=== PATIENT | female | born 1935 | race Caucasian/White ===

== ENCOUNTER 2020-01-26 16:13 | Inpatient (IN) | payer MEDICARE, MEDICAID, SELFPAY ==
[2020-01-26 21:20] VITALS: BMI 11.4
[2020-01-27] VITALS (8 sets, daily range): BP systolic 99–136; BP diastolic 52–88; PULSE 60–110; RESP 18–20; TEMP 36.1–37; O2SAT 94–98
[2020-01-27] MEDS: Levothyroxine Sodium 50 MCG TABLET PO (06:27)
[2020-01-27] MEDS: Apixaban 2.5 MG TABLET PO ×2 (06:27→18:56)
[2020-01-27] MEDS: dilTIAZem HCL 125 MG in 0.9 % Sodium Chloride 100 ML IVCONT (06:36)
[2020-01-27 06:50] LABS: Hematocrit 32.1 % (37-47); Hemoglobin 10.1 g/dl (12.0-16.0); Mean Corpuscular HGB Conc 31.5 g/dl (31.0-35.0); Mean Corpuscular Volume 92.2 fL (80-98); Mean Platelet Volume 10.2 fL (9.4-12.3); Platelet Count 288 X10*3/uL (160-400); Red Blood Count 3.48 X10*6/uL (4.20-5.50)
[2020-01-27 06:53] LABS: Anion Gap 10 (12-20); Blood Urea Nitrogen 18 mg/dL (9-16); Calcium 7.9 mg/dL (8.4-10.2); Carbon Dioxide 26 mmol/L (22-29); Chloride 108 mmol/L (96-108); Creatinine Clr Calc Pharmacy 10.5; Estimated Glomerular Filt Rate 30; Glucose Fasting 80 mg/dL (60-99); Potassium 4.2 mmol/l (3.3-5.1); Sodium 140 mmol/L (135-145)
[2020-01-27] MEDS: cefTRIAXone sodium 1 GM in 0.9 % Sodium Chloride 50 ML IV (09:20)
[2020-01-27] MEDS: 0.9 % Sodium Chloride Flush 3 ML SYRINGE 2 ML IVFLUSH ×2 (09:21→15:34)
[2020-01-27] MEDS: Furosemide 40 MG TABLET PO (09:21)
--- NOTE | 2020-01-27 10:44 | HO.PM.IMPN ---
Subjective Subjective Date of Service: 01/27/20 Interval History: feeling better today, no palpitations, fatigue lessened Cardiovascular Cardiovascular: Reports no additional cardiovascular complaints Respiratory Respiratory: Reports no additional respiratory complaints Physical Exam Vital Signs and I&O and Narrative: Vital Signs and I&O: Vital Signs Temp 97.7 F 01/27/20 08:00 Pulse 99 01/27/20 08:00 Resp 20 01/27/20 08:00 BP 110/70 01/27/20 08:00 Pulse Ox 94 01/27/20 08:00 Intake & Output 01/26/20 01/27/20 01/27/20 18:59 06:59 18:59 Intake Total 50 / 50 Output Total 200 / 200 100 / 100 Balance -200 / -200 -50 / -50 Urine Output (Aver age ml/kg/hr) 0.65 0.32 Weight 25.7 kg Intake: Intake, IV Amoun t 50 / 50 cefTRIAXone so dium 1 gm In 0.9 50 / 50 % Sodium Chlor maricruz 50 ml @ 100 mls/hr IV Q24H [facility] Rx#: [id number] Output: Output, Urine Am ount 200 / 200 100 / 100 Other: Number of Incont inent Voids 1 Urine Bedside Commode Bedside Commode Urine Color Yesy Cloudy with Sedime nt Continuous Bladd er Irrigation Fluid - Amount I nstilled Female Externa l 300 Body Mass Index 11.4 Const: General: no acute distress and alert Orientation/consciousness: patient oriented x3 Resp: Auscultation: clear to auscultation bilaterally Cardio: Rhythm: abnormal rhythm Heart sounds: S1 normal heart sound present and S2 normal heart sound present GI: Palpation (GI): nontender Neuro: General: patient oriented x3 Psych: Affect: normal affect Objective Data Current Medications Generic Name Dose Route Start Last Admin Trade Name Freq PRN Reason Stop Dose Admin Alprazolam 0.5 mg 01/27/20 00:01 Alprazolam 0.5 Mg Tablet PO BID PRN anxiety/restlessness Apixaban 2.5 mg 01/27/20 04:45 01/27/20 06:27 Apixaban 2.5 Mg Tablet PO 2.5 mg Q12H [facility] Administration Furosemide 40 mg 01/27/20 09:00 01/27/20 09:21 Furosemide 40 Mg Tablet PO 40 mg DAILY [facility] Administration Protocol Ceftriaxone Sodium 1 gm/ 50 mls @ 100 mls/hr 01/27/20 08:00 01/27/20 10:08 Sodium Chloride IV Infused Q24H [facility] Infusion Diltiazem HCl 125 mg/ Sodium 125 mls @ 0 mls/hr 01/27/20 03:00 01/27/20 06:36 Chloride IVCONT 5 mg/hr .Q0M [facility] 5 mls/hr Administration Protocol Per Protocol Levothyroxine Sodium 50 mcg 01/27/20 06:00 01/27/20 06:27 Levothyroxine Sodium 50 Mcg Tablet PO 50 mcg DAILY@0600 [facility] Administration Sodium Chloride 2 ml 01/27/20 00:00 01/27/20 09:21 0.9 % Sodium Chloride Flush 3 Ml Syringe IVFLUSH 2 ml QSHIFT [facility] Administration Labs CBC & Chem 7: 01/27/20 05:20 01/27/20 05:20 Labs: Laboratory Results - last 24 hr 01/27/20 01/27/20 05:20 05:20 MCV 92.2 MCH 29.0 MCHC 31.5 RDW 18.0 H Plt Count 288 MPV 10.2 Absolute Nucleated RBC 0.000 Nucleated RBC % (auto) 0.0 Anion Gap 10 L Estim Creat Clear Calc 10.5 Estimated GFR 30 Fasting Glucose 80 Calcium 7.9 L
--- NOTE | 2020-01-27 11:27 | MHC.CM.PN ---
IMM 01/27/20 Female 84 dx afib rvr lives alone on 2nd floor of 2 family house. Her dtr lives on 1st floor. Dtr provides [employer] services thru [employer]. DP home resumption of [facility] and new referral to [facility]. Family will transport. Requested copy of HCP. CM will continue to follow.
--- NOTE | 2020-01-27 11:46 | P.CDIC_ITS ---
CDI Concurrent Query Service Date: 01/27/20 Documentation Clarification: Please clarify if you are treating a proba ble/suspected/likely or confirmed: Acute Systolic CHF Acute on Chronic Systolic CHF PLEASE DO NOT DELETE/MODIFY EXISTING CONTENT Additional information is needed in order to code to the highest accuracy and appropriate Severity of Illness (SOI). Please clarify the information noted below in your progress notes and discharge summary. Risk Factors/Clinical Indicators/Treatments 84 year old female admitted with Atrial Fibrillation, weakness, off Lasix for 2 weeks. Cardioversion on 12/31/19 PMH: Atrial Fibrillation, CKD4, HTN, CHF EF 30% Treated with IV Lasix and Cardizem drip Per H&P: CHF with reduced EF Cardiology consult pending CDS: Nidhi Tyler RN Contact Number: [phone] Please Review the information above and exercise your independent professional judgment in responding to the query. If you concur, pleas document in the PROGRESS NOTES and DISCHARGE SUMMARY. If you do not agree with the query, please document in the query above. THIS QUERY IS PART OF THE PERMANENT MEDICAL RECORD
[2020-01-27] MEDS: Metoprolol Tartrate 25 MG TABLET PO ×3 (15:31→21:41)
[2020-01-27] MEDS: ALPRAZolam 0.5 MG TABLET PO (15:31)
[2020-01-27] MEDS: Furosemide 20 MG/2 ML VIAL IVPUSH (15:32)
[2020-01-27] MEDS: Furosemide 40 MG/4 ML VIAL IVPUSH (18:56)
[2020-01-28] VITALS (16 sets, daily range): BP systolic 90–119; BP diastolic 45–84; PULSE 54–90; RESP 16–18; TEMP 36–36.9; O2SAT 94–99
--- NOTE | 2020-01-28 | ECG_ITS ---
Test Reason : S/P CARDIOVERSION Blood Pressure : / mmHG Vent. Rate : 055 BPM Atrial Rate : 055 BPM P-R Int : 238 ms QRS Dur : 086 ms QT Int : 520 ms P-R-T Axes : 066 -27 028 degrees QTc Int : 497 ms Sinus bradycardia with 1st degree A-V block Nonspecific T wave abnormality Prolonged QT Abnormal ECG When compared with ECG of 26-JAN-2020 15:10, Sinus rhythm has replaced Atrial fibrillation Vent. rate has decreased BY 81 BPM Nonspecific T wave abnormality now evident in Anterior leads T wave inversion no longer evident in Lateral leads Referred By: Korey Cao Electronically Signed By:ERYN PRINCE
[2020-01-28] MEDS: dilTIAZem HCL 125 MG in 0.9 % Sodium Chloride 100 ML IVCONT (04:55)
[2020-01-28] MEDS: Apixaban 2.5 MG TABLET PO ×3 (05:03→15:01)
[2020-01-28] MEDS: Levothyroxine Sodium 50 MCG TABLET PO (05:03)
[2020-01-28 06:32] LABS: MANUAL DIFF FLAG NO
[2020-01-28 07:00] LABS: Anion Gap 12 (12-20); Blood Urea Nitrogen 27 mg/dL (9-16); Calcium 7.8 mg/dL (8.4-10.2); Carbon Dioxide 24 mmol/L (22-29); Chloride 106 mmol/L (96-108); Creatinine Clr Calc Pharmacy 8.1; Estimated Glomerular Filt Rate 22; Glucose Fasting 90 mg/dL (60-99); Potassium 4.2 mmol/l (3.3-5.1); Sodium 138 mmol/L (135-145)
[2020-01-28 07:08] LABS: Basophils Percent Auto 0.2 % (0-2); Eosinophils Absolute Auto 0.2 X10*3/uL (0.0-0.4); Eosinophils Percent Auto 2.9 % (0-4); Hematocrit 32.7 % (37-47); Hemoglobin 10.6 g/dl (12.0-16.0); Imm Gran Abs Auto 0.02 X10*3/uL (0.00-0.03); Imm Gran Pct Auto 0.3 % (0.0-0.4); Lymphocytes Absolute Auto 1.5 X10*3/uL (1.2-4.9); Lymphocytes Percent Auto 24.7 % (20-40); Mean Corpuscular HGB Conc 32.4 g/dl (31.0-35.0); Mean Corpuscular Hemoglobin 29.9 pg (27.0-33.0); Mean Corpuscular Volume 92.4 fL (80-98); Mean Platelet Volume 10.3 fL (9.4-12.3); Monocytes Absolute Auto 0.5 X10*3/uL (0.1-1.2); Monocytes Percent Auto 7.9 % (2-11); Neutrophils Absolute Auto 3.8 X10*3/uL (2.0-8.3); Platelet Count 300 X10*3/uL (160-400); Red Blood Count 3.54 X10*6/uL (4.20-5.50)
[2020-01-28] MEDS: 0.9 % Sodium Chloride Flush 3 ML SYRINGE 2 ML IVFLUSH ×3 (08:48→21:25)
[2020-01-28] MEDS: Furosemide 40 MG/4 ML VIAL IVPUSH (08:48)
[2020-01-28] MEDS: Metoprolol Tartrate 25 MG TABLET PO ×4 (08:51→21:24)
[2020-01-28] MEDS: cefTRIAXone sodium 1 GM in 0.9 % Sodium Chloride 50 ML IV (09:01)
--- NOTE | 2020-01-28 10:00 | CA_ITS ---
TYPE OF PROCEDURE: Transesophageal echocardiogram. INDICATION: Pre-cardioversion to rule out intracardiac thrombi given recent interruption in Eliquis. TECHNIQUE: After obtaining full informed consent, the patient was brought to the OR suite in a fasting condition. The patient was then given GA/anesthesia by anesthesia team. A BRYCE probe was then introduced into the gastric and then into the esophageal cavity. Images were obtained in standard format. FINDINGS: Left ventricle appears to be of normal size with [id number] LVH. Left ventricular systolic function appears preserved on this study with LVEF of 55% to 60%. Diastolic function could not be ascertained on this study. Left atrium: This is at least moderately dilated in size. The left atrium shows dense smoke formation. The left atrial appendage was identified in multiple views. There are no filling defects suggestive of clot, however, there was dense smoke formation seen. The left atrial appendage ejection velocity is markedly diminished. Left upper, right upper, and right lower pulmonary veins drain normally into the left atrium. Interatrial septum shows a small aneurysmal outpouching with a small evidence of patent foramen ovale with [id number] shunting. Right atrium is at least moderately to severely dilated. There is smoke formation seen in the right atrium. There are no clots in the right atrium. The IVC and SVC are normally draining into the right atrium. Right ventricle is of normal size with low normal contractile function. Mitral valve, posterior leaflet is heavily thickened and restricted with heavy mitral annular calcification. There is moderate calcification at the base of the anterior mitral leaflet. There is no evidence of mitral stenosis. There is mild mitral regurgitation. The aortic valve is mildly thickened, mildly calcified with restricted opening suggesting mild aortic stenosis. There is no aortic regurgitation. There are no masses or vegetations noted attached to the left-sided leaflets. Tricuspid morphology, trace TR with calculated RV systolic pressure within normal limits. Pulmonic valve within normal limits. Pericardium is normal. Descending and transverse thoracic aorta show hnuujnof-ol-aseohv thickening and atherosclerotic changes. CONCLUSION: 1. Left atrial appendage shows no thrombus. 2. Left atrium and left atrial appendage show dense smoke formation. 3. Biatrial enlargement, right greater than left. 4. Preserved LV systolic function. 5. Mild mitral regurgitation with severe mitral annular calcification. 6. No pericardial effusion. 7. Severe atherosclerotic changes in the descending and transverse thoracic aorta. PLAN: Based upon the finding, the patient went on to have synchronized cardioversion, which is dictated separately. MD DOUG Villalpando/MODL / [id number]
--- NOTE | 2020-01-28 12:32 | P.PNAN_ITS ---
Physical Exam Vital Signs and I&O and Narrative: Vital Signs and I&O: Vital Signs Temp 98.1 F 01/28/20 11:50 Pulse 74 01/28/20 11:50 Resp 18 01/28/20 11:50 BP 117/84 01/28/20 11:50 Pulse Ox 96 01/28/20 11:50 Intake & Output 01/27/20 01/28/20 01/28/20 18:59 06:59 18:59 Intake Total 700 / 811.583 111.583 / 811.583 50 / 50 Output Total 1352 / 2152 800 / 2152 Balance -652 / -1340.417 -688.417 / -1340.4 17 50 / 50 Urine Output (Aver age ml/kg/hr) 4.38 2.59 2.59 Intake: Intake, Oral [place] unt 430 / 430 Intake, Intraper itoneal Amount 220 / 220 Intake, IV Amoun t 50 / 161.583 111.583 / 161.583 50 / 50 cefTRIAXone so dium 1 gm In 0.9 50 / 50 50 / 50 % Sodium Chlor maricruz 50 ml @ 100 mls/hr IV Q24H [facility] Rx#: [id number] dilTIAZem HCL 125 mg In 0.9 % 111.583 / 111.583 Sodium Chlorid e 100 ml @ Per Protocol IVCON T .Q0M [facility] Rx#: [id number] Output: Output, Urine Am ount 1352 / 2152 800 / 2152 Other: Meal Refused No NPO No Yes Lunch % Eaten 75% Dinner % Eaten 100% Number of Incont inent Voids 2 Number of Urine Diapers 1 Urine Bathroom Bedside Commode Urine Color Yellow Yellow Stool Bedside Commode Body Mass Index 11.4 Progress Note: A&P Fall Risk Details Current Medications: Current Medications Generic Name Dose Route Start Last Admin Trade Name Freq PRN Reason Stop Dose Admin Alprazolam 0.5 mg 01/27/20 00:01 01/27/20 15:31 Alprazolam 0.5 Mg Tablet PO 0.5 mg BID PRN Administration anxiety/restlessness Apixaban 2.5 mg 01/27/20 04:45 01/28/20 05:06 Apixaban 2.5 Mg Tablet PO 2.5 mg Q12H [facility] Administration Furosemide 20 mg 01/29/20 09:00 Furosemide 20 Mg Tablet PO DAILY [facility] Protocol Ceftriaxone Sodium 1 gm/ 50 mls @ 100 mls/hr 01/27/20 08:00 01/28/20 10:37 Sodium Chloride IV Infused Q24H [facility] Infusion Diltiazem HCl 125 mg/ Sodium 125 mls @ 0 mls/hr 01/27/20 03:00 01/28/20 04:55 Chloride IVCONT 5 mg/hr .Q0M [facility] 5 mls/hr Administration Protocol Per Protocol Levothyroxine Sodium 50 mcg 01/27/20 06:00 01/28/20 05:03 Levothyroxine Sodium 50 Mcg Tablet PO 50 mcg DAILY@0600 [facility] Administration Metoprolol Tartrate 25 mg 01/27/20 13:00 01/28/20 08:51 Metoprolol Tartrate 25 Mg Tablet PO 25 mg QID [facility] Administration Protocol Sodium Chloride 2 ml 01/27/20 00:00 01/28/20 08:48 0.9 % Sodium Chloride Flush 3 Ml Syringe IVFLUSH 2 ml QSHIFT [facility] Administration Time Spent With Patient Time: Total time spent is greater than 50% in coordination of care (as docum ented) at patient's floor/unit and/or counseling patient: Time with patient: Greater than 35 minutes
--- NOTE | 2020-01-28 12:32 | P.CONAN_ITS ---
[facility] Past Medical History Medical History Anxiety Ramos's palsy Cervical cancer DVT (deep venous thrombosis) Social History Social History Smoking Status: Never smoker Second Hand Smoke Exposure: No service: No Current occupational status: disabled Meds Allergies Allergy/AdvReac Type Severity Reaction Status Date / Time amlodipine [From NORVASC] Allergy Intermediate HIVES Unverified 01/13/20 17:03 aspirin [ASA] Allergy Intermediate HIVES Unverified 01/13/20 17:03 robert [ROBERT] Allergy Intermediate HIVES Unverified 01/13/20 17:03 gabapentin Allergy Unknown dizziness Verified 11/26/19 00:00 hydrochlorothiazide Allergy Unknown Hives Verified 01/28/20 12:00 lisinopril Allergy Unknown Cough Verified 01/28/20 12:00 ASA Allergy Unknown hives Uncoded 12/28/19 00:00 Home Medications Medication Instructions Recorded Confirmed Type alprazolam 0.5 mg PO BID PRN 01/26/20 01/26/20 History amiodarone 200 mg PO DAILY 01/26/20 01/26/20 History apixaban 2.5 mg PO BID 01/26/20 01/26/20 History furosemide 40 mg PO DAILY 01/26/20 01/26/20 History levothyroxine 50 mcg PO DAILY 01/26/20 01/26/20 History sulfamethoxazole-trimethoprim 1 tab PO BID 01/26/20 01/26/20 History [Bactrim] Exam Exam Date and Time: January 28, 2020 1232 Height,Weight and Vital Signs: Height 4 ft 11 in Weight 25.7 kg Last Vital Signs Temp 98.1 F 01/28/20 11:50 Pulse 74 01/28/20 11:50 Resp 18 01/28/20 11:50 BP 117/84 01/28/20 11:50 Pulse Ox 96 01/28/20 11:50 Pertinent Lab Results Pertinent Lab Results: Laboratory Tests 01/27/20 01/27/20 01/28/20 05:20 05:20 05:40 WBC 5.0 6.0 RBC 3.48 L 3.54 L Hgb 10.1 L 10.6 L Hct 32.1 L 32.7 L MCV 92.2 92.4 MCH 29.0 29.9 MCHC 31.5 32.4 RDW 18.0 H 18.0 H Plt Count 288 300 MPV 10.2 10.3 Immature Gran % (Auto) 0.3 Neut % (Auto) 64.0 Lymph % (Auto) 24.7 [place] % (Auto) 7.9 Eos % (Auto) 2.9 Baso % (Auto) 0.2 Neut # (Auto) 3.8 Lymph # (Auto) 1.5 [place] # (Auto) 0.5 Eos # (Auto) 0.2 Baso # (Auto) 0.0 Abs Immat Gran (auto) 0.02 Absolute Nucleated RBC 0.000 0.000 Nucleated RBC % (auto) 0.0 0.0 Sodium 140 Potassium 4.2 Chloride 108 Carbon Dioxide 26 Anion Gap 10 L BUN 18 H Creatinine 1.64 H Estim Creat Clear Calc 10.5 Estimated GFR 30 Fasting Glucose 80 Calcium 7.9 L 01/28/20 05:40 WBC RBC Hgb Hct MCV MCH MCHC RDW Plt Count MPV Immature Gran % (Auto) Neut % (Auto) Lymph % (Auto) [place] % (Auto) Eos % (Auto) Baso % (Auto) Neut # (Auto) Lymph # (Auto) [place] # (Auto) Eos # (Auto) Baso # (Auto) Abs Immat Gran (auto) Absolute Nucleated RBC Nucleated RBC % (auto) Sodium 138 Potassium 4.2 Chloride 106 Carbon Dioxide 24 Anion Gap 12 BUN 27 H Creatinine 2.13 H Estim Creat Clear Calc 8.1 Estimated GFR 22 Fasting Glucose 90 Calcium 7.8 [address] Airway Mallampati Class: II TM Dist: >3cm Neck ROM: Full Denture: Upper Loose/Missing/Broken Teeth: Yes (No lower teeth) Heart: irreg irreg Lungs: CTA Assessment and Plan Assessment Anesthesia Assessment: Anesthesia Plan Discussed, Consent Obtained and Chart Reviewed Final Anesthetic Review NPO: Yes ASA Class: III Final Preanesthetic Review: Meds & Allergies Reviewed, Consent Obtained/Reviewed, Med/Surg/Anes Hx Reviewed, Anes Risks/Benef Reviewed and DNR Form (If Appl.) Patient Risk: Intermediate Procedure Risk: Intermediate Anesthetic Plan Anesthetic Plan: GA Disposition: Standard PACU
--- NOTE | 2020-01-28 13:02 | HO.PM.IMPN ---
Subjective Subjective Date of Service: 01/28/20 Interval History: feeling much better Physical Exam Vital Signs and I&O and Narrative: Vital Signs and I&O: Vital Signs Temp 98.1 F 01/28/20 11:50 Pulse 74 01/28/20 11:50 Resp 18 01/28/20 11:50 BP 117/84 01/28/20 11:50 Pulse Ox 96 01/28/20 11:50 Intake & Output 01/27/20 01/28/20 01/28/20 18:59 06:59 18:59 Intake Total 700 / 811.583 111.583 / 811.583 50 / 50 Output Total 1352 / 2152 800 / 2152 Balance -652 / -1340.417 -688.417 / -1340.4 17 50 / 50 Urine Output (Aver age ml/kg/hr) 4.38 2.59 2.59 Intake: Intake, Oral [place] unt 430 / 430 Intake, Intraper itoneal Amount 220 / 220 Intake, IV Amoun t 50 / 161.583 111.583 / 161.583 50 / 50 cefTRIAXone so dium 1 gm In 0.9 50 / 50 50 / 50 % Sodium Chlor maricruz 50 ml @ 100 mls/hr IV Q24H [facility] Rx#: [id number] dilTIAZem HCL 125 mg In 0.9 % 111.583 / 111.583 Sodium Chlorid e 100 ml @ Per Protocol IVCON T .Q0M [facility] Rx#: [id number] Output: Output, Urine Am ount 1352 / 2152 800 / 2152 Other: Meal Refused No NPO No Yes Lunch % Eaten 75% Dinner % Eaten 100% Number of Incont inent Voids 2 Number of Urine Diapers 1 Urine Bathroom Bedside Commode Urine Color Yellow Yellow Stool Bedside Commode Body Mass Index 11.4 Const: General: no acute distress and alert Orientation/consciousness: patient oriented x3 Resp: Auscultation: clear to auscultation bilaterally Cardio: Rhythm: abnormal rhythm Heart sounds: S1 normal heart sound present and S2 normal heart sound present GI: Palpation (GI): nontender Neuro: General: patient oriented x3 Psych: Affect: normal affect Objective Data Current Medications Generic Name Dose Route Start Last Admin Trade Name Freq PRN Reason Stop Dose Admin Alprazolam 0.5 mg 01/27/20 00:01 01/27/20 15:31 Alprazolam 0.5 Mg Tablet PO 0.5 mg BID PRN Administration anxiety/restlessness Apixaban 2.5 mg 01/27/20 04:45 01/28/20 05:06 Apixaban 2.5 Mg Tablet PO 2.5 mg Q12H [facility] Administration Furosemide 20 mg 01/29/20 09:00 Furosemide 20 Mg Tablet PO DAILY [facility] Protocol Ceftriaxone Sodium 1 gm/ 50 mls @ 100 mls/hr 01/27/20 08:00 01/28/20 10:37 Sodium Chloride IV Infused Q24H [facility] Infusion Diltiazem HCl 125 mg/ Sodium 125 mls @ 0 mls/hr 01/27/20 03:00 01/28/20 04:55 Chloride IVCONT 5 mg/hr .Q0M [facility] 5 mls/hr Administration Protocol Per Protocol Lactated Ringer's 1,000 ml in 1,000 mls @ 20 mls/hr 01/28/20 12:40 01/28/20 12:39 Lr IVCONT 20 mls/hr .Q24H [facility] Administration Levothyroxine Sodium 50 mcg 01/27/20 06:00 01/28/20 05:03 Levothyroxine Sodium 50 Mcg Tablet PO 50 mcg DAILY@0600 [facility] Administration Metoprolol Tartrate 25 mg 01/27/20 13:00 01/28/20 08:51 Metoprolol Tartrate 25 Mg Tablet PO 25 mg QID [facility] Administration Protocol Ondansetron HCl 4 mg 01/28/20 12:41 Ondansetron Hcl 4 Mg/2 Ml Vial IVPUSH ONCE PRN Nausea and Vomiting Sodium Chloride 2 ml 01/27/20 00:00 01/28/20 08:48 0.9 % Sodium Chloride Flush 3 Ml Syringe IVFLUSH 2 ml QSHIFT [facility] Administration Labs CBC & Chem 7: 01/28/20 05:40 01/28/20 05:40 Labs: Laboratory Results - last 24 hr 01/28/20 01/28/20 05:40 05:40 MCV 92.4 MCH 29.9 MCHC 32.4 RDW 18.0 H Plt Count 300 MPV 10.3 Immature Gran % (Auto) 0.3 Neut % (Auto) 64.0 Lymph % (Auto) 24.7 [place] % (Auto) 7.9 Eos % (Auto) 2.9 Baso % (Auto) 0.2 Neut # (Auto) 3.8 Lymph # (Auto) 1.5 [place] # (Auto) 0.5 Eos # (Auto) 0.2 Baso # (Auto) 0.0 Abs Immat Gran (auto) 0.02 Absolute Nucleated RBC 0.000 Nucleated RBC % (auto) 0.0 Anion Gap 12 Estim Creat Clear Calc 8.1 Estimated GFR 22 Fasting Glucose 90 Calcium 7.8 L Assessment and Plan (1) Chronic systolic CHF (congestive heart failure): Status: Acute (2) Atrial fibrillation with rapid ventricular response: Status: Acute (3) Urinary tract infection: Status: Acute (4) Hematuria: Status: Acute (5) Chronic kidney disease, stage 4 (severe): Status: Acute (6) Hypothyroid: Status: Acute Assessment and Plan: 84-year-old female presented with AFib with RVR AFib with RVR Holding amiodarone, rate controlled on diltiazem drip and Lopressor, restarted Eliquis plan for abel cardioversion today Urinary tract infection Hematuria resolved was Klebsiella and strep viridans Stopped Bactrim continue ceftriaxone acute on chronic CHF with reduced ejection fraction improved, change to po lasix 20 CKD 4 creatinine at baseline Hypothyroid Synthroid
--- NOTE | 2020-01-28 13:58 | P.PNCA_ITS ---
Subjective Subjective Principal diagnosis: CHF, persistent atrial fibrillation Interval history: feeling much better. her shortness of breath is back to baseline. Remains in atrial fibrillation with borderline controlled ventricular response. Patient denies any palpitations and does not feel at heart is in atrial fibrillation. Underwent BRYCE guided cardioversion. Converted successfully to sinus rhythm. No obvious abnormalities after cardioversion Physical Exam Vital Signs and I&O: Vital Signs Temp 96.9 F 01/28/20 12:28 Pulse 55 01/28/20 13:44 Resp 16 01/28/20 13:44 BP 91/47 L 01/28/20 13:44 Pulse Ox 96 01/28/20 13:44 Intake & Output 01/27/20 01/28/20 01/28/20 18:59 06:59 18:59 Intake Total 700 / 811.583 111.583 / 811.583 50 / 50 Output Total 1352 / 2152 800 / 2152 Balance -652 / -1340.417 -688.417 / -1340.417 50 / 50 Urine Output (Average ml/kg/hr) 4.38 2.59 2.59 Intake: Intake, Oral Amount 430 / 430 Intake, Intraperitoneal Amount 220 / 220 Intake, IV Amount 50 / 161.583 111.583 / 161.583 50 / 50 cefTRIAXone sodium 1 gm In 0.9 50 / 50 50 / 50 % Sodium Chloride 50 ml @ 100 mls/hr IV Q24H [facility] Rx#: [id number] dilTIAZem HCL 125 mg In 0.9 % 111.583 / 111.583 Sodium Chloride 100 ml @ Per Protocol IVCONT .Q0M [facility] Rx#: [id number] Output: Output, Urine Amount 1352 / 2152 800 / 2152 Other: Meal Refused No NPO No Yes Lunch % Eaten 75% Dinner % Eaten 100% Number of Incontinent Voids 2 Number of Urine Diapers 1 Urine Bathroom Bedside Commode Urine Color Yellow Yellow Stool Bedside Commode Body Mass Index 11.4 Const General: cooperative, comfortable and no acute distress Nutritional Appearance: other ( frail) Orientation/consciousness: patient oriented x3 Limitations: language barrier HENMT Head: Yes normocephalic and Yes atraumatic Eyes General: appearance normal, both eyes and all related structures Neck Neck: Yes full ROM, Yes trachea midline and Yes no JVD Chest Chest palpation & inspection: normal inspection of the chest Resp Effort & Inspection: normal respiratory effort Auscultation: clear to auscultation bilaterally Cardio Jugular venous distension: no JVD Rhythm: regular rhythm Heart sounds: S1 normal heart sound present and S2 normal heart sound present GI Auscultation: normal bowel sounds Skin General skin exam: elasticity normal and turgor normal Neuro General: patient oriented x3 and no focal motor deficits Extrem General: Yes no clubbing, cyanosis or edema Psych Mental Status: mental status grossly normal Affect: normal affect Progress Note: A&P Assessment and plan (1) Atrial fibrillation with rapid ventricular response: Problem details: atrial fibrillation, persistent. May be noncompliant with her medications at home. Converted successfully to sinus rhythm after BRYCE. Will load with amiodarone 400 mg daily for 10 days followed by 200 mg daily for life. Importance of compliance with medication was discussed with both patient patient's daughter. She has dense smoke formation in her left atrial appendage. Importance of uninterrupted anticoagulant therapy to reduce stroke risk was also discussed. Continue metoprolol 25 mg q.i.d.. EKG today and tomorrow. Continue full disclosure telemetry. Continue full oral anticoagulation with El iquis. If remains stable by tomorrow will probably discharge home. Status: Acute (2) Heart failure: Problem details: Heart failure which this morning prior to cardioversion appears much better control. Importance of diuretic therapy was discussed. Switch to p.o. Lasix 20 mg daily. Strict I&Os Q shift and avoidance of salt loading was discussed with the patient. Rhythm control approach as above. Her LV ejection fraction on today's BRYCE appear to be preserved. Continue to monitor clinically. Status: Acute Fall Risk Details Current Medications: Current Medications Generic Name Dose Route Start Last Admin Trade Name Freq PRN Reason Stop Dose Admin Alprazolam 0.5 mg 01/27/20 00:01 01/27/20 15:31 Alprazolam 0.5 Mg Tablet PO 0.5 mg BID PRN Administration anxiety/restlessness Amiodarone HCl 400 mg 01/28/20 13:35 Amiodarone Hcl 200 Mg Tablet PO 02/07/20 08:00 DAILY [facility] Apixaban 2.5 mg 01/27/20 04:45 01/28/20 05:06 Apixaban 2.5 Mg Tablet PO 2.5 mg Q12H [facility] Administration Furosemide 20 mg 01/29/20 09:00 Furosemide 20 Mg Tablet PO DAILY [facility] Protocol Ceftriaxone Sodium 1 gm/ 50 mls @ 100 mls/hr 01/27/20 08:00 01/28/20 10:37 Sodium Chloride IV Infused Q24H [facility] Infusion Lactated Ringer's 1,000 ml in 1,000 mls @ 20 mls/hr 01/28/20 12:40 01/28/20 12:39 Lr IVCONT 20 mls/hr .Q24H [facility] Administration Levothyroxine Sodium 50 mcg 01/27/20 06:00 01/28/20 05:03 Levothyroxine Sodium 50 Mcg Tablet PO 50 mcg DAILY@0600 [facility] Administration Metoprolol Tartrate 25 mg 01/27/20 13:00 01/28/20 08:51 Metoprolol Tartrate 25 Mg Tablet PO 25 mg QID [facility] Administration Protocol Sodium Chloride 2 ml 01/27/20 00:00 01/28/20 08:48 0.9 % Sodium Chloride Flush 3 Ml Syringe IVFLUSH 2 ml QSHIFT [facility] Administration Time Spent With Patient Time: Total time spent is greater than 50% in coordination of care (as documented) at patient's floor/unit and/or counseling patient: Time with patient: 15 - 24 minutes Review of Systems Const All systems reviewed & are unremarkable except as noted in HPI and below Eyes Reports no additional eye complaints Card Reports no additional cardiovascular complaints Resp Reports no additional respiratory complaints GI Reports no additional gastrointestinal complaints Neuro Reports no additional neurologic complaints
[2020-01-28] MEDS: Amiodarone HCL 200 MG TABLET 400 MG PO (15:00)
[2020-01-28] MEDS: ALPRAZolam 0.5 MG TABLET PO (18:10)
[2020-01-29] VITALS (14 sets, daily range): BP systolic 98–128; BP diastolic 51–72; PULSE 57–97; RESP 16–18; TEMP 36–36.4; O2SAT 95–100
[2020-01-29] MEDS: Levothyroxine Sodium 50 MCG TABLET PO (05:34)
[2020-01-29] MEDS: Apixaban 2.5 MG TABLET PO ×2 (05:34→20:41)
[2020-01-29 06:32] LABS: MANUAL DIFF FLAG NO
[2020-01-29 06:43] LABS: Basophils Percent Auto 0.2 % (0-2); Eosinophils Absolute Auto 0.2 X10*3/uL (0.0-0.4); Eosinophils Percent Auto 3.5 % (0-4); Hematocrit 34.2 % (37-47); Hemoglobin 10.6 g/dl (12.0-16.0); Imm Gran Abs Auto 0.01 X10*3/uL (0.00-0.03); Imm Gran Pct Auto 0.2 % (0.0-0.4); Lymphocytes Absolute Auto 1.6 X10*3/uL (1.2-4.9); Lymphocytes Percent Auto 27.8 % (20-40); Mean Corpuscular Hemoglobin 28.9 pg (27.0-33.0); Mean Corpuscular Volume 93.2 fL (80-98); Mean Platelet Volume 9.7 fL (9.4-12.3); Monocytes Absolute Auto 0.4 X10*3/uL (0.1-1.2); Monocytes Percent Auto 7.2 % (2-11); Neutrophils Absolute Auto 3.5 X10*3/uL (2.0-8.3); Neutrophils Percent Auto 61.1 % (45-73); Platelet Count 299 X10*3/uL (160-400); Red Blood Count 3.67 X10*6/uL (4.20-5.50); Red Cell Distribution Width 17.7 % (11.0-16.0); White Blood Count 5.7 X10*3/uL (4.8-10.8)
[2020-01-29 07:02] LABS: Anion Gap 12 (12-20); Blood Urea Nitrogen 35 mg/dL (9-16); Calcium 7.9 mg/dL (8.4-10.2); Carbon Dioxide 27 mmol/L (22-29); Chloride 103 mmol/L (96-108); Creatinine Clr Calc Pharmacy 7.3; Estimated Glomerular Filt Rate 20; Glucose Fasting 96 mg/dL (60-99); Potassium 4.1 mmol/l (3.3-5.1); Sodium 138 mmol/L (135-145)
[2020-01-29] MEDS: cefTRIAXone sodium 1 GM in 0.9 % Sodium Chloride 50 ML IV (09:49)
[2020-01-29] MEDS: 0.9 % Sodium Chloride Flush 3 ML SYRINGE 2 ML IVFLUSH ×3 (09:49→20:41)
[2020-01-29] MEDS: Furosemide 20 MG TABLET PO (09:54)
[2020-01-29] MEDS: Amiodarone HCL 200 MG TABLET 400 MG PO (09:54)
--- NOTE | 2020-01-29 11:13 | P.PNCA_ITS ---
Subjective Subjective Principal diagnosis: CHF, persistent atrial fibrillation Interval history: Patient status post cardioversion. Maintaining sinus rhythm. Heart rate in the upper 50s low 60s. She feels extremely well. She ambulated the entire Jesus and had no symptoms of shortness of breath or fatigue. No leg edema, orthopnea. Blood pressure is on the lower side. Creatinine today is higher Physical Exam Vital Signs and I&O: Vital Signs Temp 97.2 F 01/29/20 07:46 Pulse 57 01/29/20 09:55 Resp 18 01/29/20 07:46 BP 99/57 L 01/29/20 09:55 Pulse Ox 96 01/29/20 07:46 Intake & Output 01/28/20 01/29/20 01/29/20 18:59 06:59 18:59 Intake Total 85 / 325 240 / 325 240 / 240 Output Total 800 / 1000 200 / 1000 200 / 200 Balance -715 / -675 40 / -675 40 / 40 Urine Output (Average ml/kg/hr) 2.59 0.65 0.65 Intake: Intake, Oral Amount 240 / 240 240 / 240 Intake, IV Amount 85 / 85 cefTRIAXone sodium 1 gm In 0.9 50 / 50 % Sodium Chloride 50 ml @ 100 mls/hr IV Q24H [facility] Rx#: [id number] dilTIAZem HCL 125 mg In 0.9 % 35 / 35 Sodium Chloride 100 ml @ Per Protocol IVCONT .Q0M [facility] Rx#: [id number] Output: Output, Urine Amount 800 / 1000 200 / 1000 200 / 200 Other: NPO Yes Breakfast % Eaten 75% Number of Unmeasured Voids 6 Urine Bathroom Urine Color Cloudy with Sediment Body Mass Index 11.4 Const General: cooperative, comfortable, no acute distress, alert and awake Orientation/consciousness: patient oriented x3 [facility] Head: Yes normocephalic and Yes atraumatic Eyes General: appearance normal, both eyes and all related structures Neck Neck: Yes no JVD Chest Chest palpation & inspection: normal inspection of the chest Resp Effort & Inspection: normal respiratory effort Auscultation: clear to auscultation bilaterally Cardio Heart sounds: S1 normal heart sound present, S2 normal heart sound present and Gallop heart sound present S4 gallop GI Auscultation: normal bowel sounds Skin General skin exam: elasticity normal and turgor normal Neuro General: patient oriented x3 and no focal motor deficits Extrem General: Yes no clubbing, cyanosis or edema Psych Appearance: grossly normal Progress Note: A&P Fall Risk Details Current Medications: Current Medications Generic Name Dose Route Start Last Admin Trade Name Rufinoq PRN Reason Stop Dose Admin Alprazolam 0.5 mg 01/27/20 00:01 01/28/20 18:10 Alprazolam 0.5 Mg Tablet PO 0.5 mg BID PRN Administration anxiety/restlessness Amiodarone HCl 400 mg 01/28/20 13:35 01/29/20 09:54 Amiodarone Hcl 200 Mg Tablet PO 02/07/20 08:00 400 mg DAILY ROBBIE Administration Apixaban 2.5 mg 01/27/20 04:45 01/29/20 05:34 Apixaban 2.5 Mg Tablet PO 2.5 mg Q12H ROBBIE Administration Furosemide 20 mg 01/29/20 09:00 01/29/20 09:54 Furosemide 20 Mg Tablet PO 20 mg DAILY ROBBIE Administration Protocol Ceftriaxone Sodium 1 gm/ 50 mls @ 100 mls/hr 01/27/20 08:00 01/29/20 09:49 Sodium Chloride IV 100 mls/hr Q24H ROBBIE Administration Lactated Ringer's 1,000 ml in 1,000 mls @ 20 mls/hr 01/28/20 12:40 01/28/20 12:39 Lr IVCONT 20 mls/hr .Q24H ROBBIE Administration Levothyroxine Sodium 50 mcg 01/27/20 06:00 01/29/20 05:34 Levothyroxine Sodium 50 Mcg Tablet PO 50 mcg DAILY@0600 ROBBIE Administration Metoprolol Tartrate 25 mg 01/27/20 13:00 01/29/20 09:55 Metoprolol Tartrate 25 Mg Tablet PO Not Given QID ROBBIE Protocol Sodium Chloride 2 ml 01/27/20 00:00 01/29/20 09:49 0.9 % Sodium Chloride Flush 3 Ml Syringe IVFLUSH 2 ml QSHIFT ROBBIE Administration Time Spent With Patient Time: Total time spent is greater than 50% in coordination of care (as documented) at patient's floor/unit and/or counseling patient: Time with patient: 15 - 24 minutes Review of Systems Const Reports no additional constitutional complaints Eyes Reports no additional eye complaints Card Reports no additional cardiovascular complaints Resp Reports no additional respiratory complaints GI Reports no additional gastrointestinal complaints Skin Reports no additional skin complaints Neuro Reports no additional neurologic complaints
--- NOTE | 2020-01-29 11:30 | P.PNIM_ITS ---
Subjective Subjective Date of Service: 01/29/20 Interval History: feeling much better today able to ambulate without symptoms Physical Exam Vital Signs and I&O and Narrative: Vital Signs and I&O: Vital Signs Temp 97.2 F 01/29/20 07:46 Pulse 57 01/29/20 09:55 Resp 18 01/29/20 07:46 BP 99/57 L 01/29/20 09:55 Pulse Ox 96 01/29/20 07:46 Intake & Output 01/28/20 01/29/20 01/29/20 18:59 06:59 18:59 Intake Total 85 / 325 240 / 325 290 / 290 Output Total 800 / 1000 200 / 1000 200 / 200 Balance -715 / -675 40 / -675 90 / 90 Urine Output (Aver age ml/kg/hr) 2.59 0.65 0.65 Intake: Intake, Oral Jazz unt 240 / 240 240 / 240 Intake, IV Amoun t 85 / 85 50 / 50 cefTRIAXone so dium 1 gm In 0.9 50 / 50 50 / 50 % Sodium Chlor maricruz 50 ml @ 100 mls/hr IV Q24H [facility] Rx#: [id number] dilTIAZem HCL 125 mg In 0.9 % 35 / 35 Sodium Chlorid e 100 ml @ Per Protocol IVCON T .Q0M [facility] Rx#: [id number] Output: Output, Urine Am ount 800 / 1000 200 / 1000 200 / 200 Other: NPO Yes Breakfast % Eate n 75% Number of Unmeas ured Voids 6 Urine Bathroom Urine Color Cloudy with Sedime nt Body Mass Index 11.4 Const: General: cooperative, comfortable, no acute distress, alert and awake Nutritional Appearance: other ( frail) Orientation/consciousness: patient oriented x3 Limitations: language barrier HENMT: Head: Yes normocephalic and Yes atraumatic Eyes: General: appearance normal, both eyes and all related structures Neck: Neck: Yes full ROM, Yes trachea midline and Yes no JVD Chest: Chest palpation & inspection: normal inspection of the chest Resp: Effort & Inspection: normal respiratory effort Auscultation: clear to auscultation bilaterally Cardio: Jugular venous distension: no JVD Rhythm: regular rhythm Heart sounds: S1 normal heart sound present, S2 normal heart sound present and Gallop heart sound present S4 gallop GI: Palpation (GI): nontender Auscultation: normal bowel sounds Skin: General skin exam: elasticity normal and turgor normal Neuro: General: patient oriented x3 and no focal motor deficits Extrem: General: Yes no clubbing, cyanosis or edema Psych: Appearance: grossly normal Mental Status: mental status grossly normal Affect: normal affect Objective Data Current Medications Generic Name Dose Route Start Last Admin Trade Name Freq PRN Reason Stop Dose Admin Alprazolam 0.5 mg 01/27/20 00:01 01/28/20 18:10 Alprazolam 0.5 Mg Tablet PO 0.5 mg BID PRN Administration anxiety/restlessness Amiodarone HCl 400 mg 01/28/20 13:35 01/29/20 09:54 Amiodarone Hcl 200 Mg Tablet PO 02/07/20 08:00 400 mg DAILY ROBBIE Administration Apixaban 2.5 mg 01/27/20 04:45 01/29/20 05:34 Apixaban 2.5 Mg Tablet PO 2.5 mg Q12H ROBBIE Administration Ceftriaxone Sodium 1 gm/ 50 mls @ 100 mls/hr 01/27/20 08:00 01/29/20 11:14 Sodium Chloride IV Infused Q24H ROBBIE Infusion Lactated Ringer's 1,000 ml in 1,000 mls @ 20 mls/hr 01/28/20 12:40 01/28/20 12:39 Lr IVCONT 20 mls/hr .Q24H ROBBIE Administration Levothyroxine Sodium 50 mcg 01/27/20 06:00 01/29/20 05:34 Levothyroxine Sodium 50 Mcg Tablet PO 50 mcg DAILY@0600 ROBBIE Administration Metoprolol Tartrate 25 mg 01/27/20 13:00 01/29/20 09:55 Metoprolol Tartrate 25 Mg Tablet PO Not Given QID ROBBIE Protocol Sodium Chloride 2 ml 01/27/20 00:00 01/29/20 09:49 0.9 % Sodium Chloride Flush 3 Ml Syringe IVFLUSH 2 ml QSHIFT ROBBIE Administration Labs CBC & Chem 7: 01/29/20 06:18 01/29/20 06:18 Labs: Laboratory Results - last 24 hr 01/29/20 01/29/20 06:18 06:18 MCV 93.2 MCH 28.9 MCHC 31.0 RDW 17.7 H Plt Count 299 MPV 9.7 Immature Gran % (Auto) 0.2 Neut % (Auto) 61.1 Lymph % (Auto) 27.8 [place] % (Auto) 7.2 Eos % (Auto) 3.5 Baso % (Auto) 0.2 Neut # (Auto) 3.5 Lymph # (Auto) 1.6 [place] # (Auto) 0.4 Eos # (Auto) 0.2 Baso # (Auto) 0.0 Abs Immat Gran (auto) 0.01 Absolute Nucleated RBC 0.000 Nucleated RBC % (auto) 0.0 Anion Gap 12 Estim Creat Clear Calc 7.3 Estimated GFR 20 Fasting Glucose 96 Calcium 7.9 L Assessment and Plan (1) Chronic systolic CHF (congestive heart failure): Status: Acute (2) Atrial fibrillation with rapid ventricular response: Status: Acute (3) Urinary tract infection: Status: Acute (4) Hematuria: Status: Acute (5) Chronic kidney disease, stage 4 (severe): Status: Acute (6) Hypothyroid: Status: Acute Assessment and Plan: 84-year-old female presented with AFib with RVR AFib with RVR successfully converted to sinus rhythm with cardioversion yesterday continue amiodarone load of 400 mg daily followed by 200 mg daily continue Lopressor Eliquis 4 acute on chronic kidney injury hold Lasix monitor Urinary tract infection Hematuria resolved was Klebsiella and strep viridans Stopped Bactrim continue ceftriaxone acute on chronic CHF with reduced ejection fraction improved Hypothyroid Synthroid
--- NOTE | 2020-01-29 12:36 | OP_ITS ---
SURGEON: Korey Cao MD PREOPERATIVE DIAGNOSIS: POSTOPERATIVE DIAGNOSIS: PROCEDURE PERFORMED: Synchronized cardioversion. ESTIMATED BLOOD LOSS: COMPLICATIONS: ANESTHESIA: ASSISTANTS: SPECIMENS: INDICATION: Persistent atrial fibrillation with heart failure. TECHNIQUE: After obtaining full informed consent, the patient was brought to the OR suite in a fasting condition. The patient underwent a BRYCE to rule out any intracardiac thrombi prior to cardioversion dictated separately. Cardioversion pads were then placed in anteroposterior configuration. The patient was then delivered 200 joules of biphasic synchronized energy in anteroposterior configuration. OUTCOME: The patient converted successfully to sinus rhythm. PLAN: We will load with amiodarone 400 mg daily for 10 days followed by 200 mg daily. Continue metoprolol 25 mg q.6 hours. 12-lead EKG post procedure as well as tomorrow morning. Continue Eliquis uninterrupted, discussed with daughter. This is extremely important to prevent stroke. We will follow with the patient. Korey Cao MD NRS/MODL / [id number]
--- NOTE | 2020-01-29 12:36 | CONS_ITS ---
DATE OF SERVICE: 01/27/2020 REQUESTING PROVIDERS: Dr. Murillo. REASON FOR CONSULTATION: Atrial fibrillation with rapid ventricular response and congestive heart failure. HISTORY OF PRESENT ILLNESS: This is an 84-year-old female, history obtained with help of daughter who was present at the patient's bedside and very closely involved in her mother's care, brought to the hospital after being referred from [facility] by Lesvia Wooten NP, for atrial fibrillation with rapid ventricular response. The patient came to the hospital because over the last week the daughter has noticed that her pulse has been elevated, and occasionally with monitoring in the [employer], she has noticed that her heart rate was elevated; however, she did not pay much attention, not sure what was going on. She subsequently, tried to take her mom outpatient for some shopping and she got severely short of breath, and when she came and noticed the heart rate, day before yesterday, to be 169. She came to see ALLAN Lakhani, yesterday in the office. She was noticed to be in atrial fibrillation with rapid ventricular response, and referred to the emergency room. The patient supposedly is still taking amiodarone at home but is currently has not been taking Lasix because of excessive diuresis, as per the daughter, she also is not taking Eliquis because over a week ago she noticed some hematuria, which has now resolved, but she has not restarted taking Eliquis, this was started again in the hospital. She was suspecting hematuria due to UTI and currently is getting IV antibiotics and noted to have urinary tract infection while she is in the hospital. CURRENT MEDICATIONS: Include, at home, levothyroxine 50 mcg daily, amiodarone 200 mg daily, and Bactrim which she was getting at home. Medicines currently in the hospital; she is getting apixaban 2.5 mg p.o. q.12 hours; levothyroxine 50 mcg daily; Lasix 40 mg IV b.i.d., which was started only this morning after my suggestion; and she is getting metoprolol 25 mg p.o. q.i.d. She is also getting ceftriaxone 1 g q.24 hours as well as Cardizem drip which is getting at 5 mg an hour. PAST MEDICAL HISTORY: She has history of hypertension, chronic kidney disease. In October, she presented to the hospital with increased shortness of breath, was treated for acute diastolic heart failure, new onset atrial fibrillation. She subsequently presented to the hospital again, and then, as an outpatient, she was noted to have reduction in LVEF to 35% and she then underwent admission and underwent cardioversion on 12/31/2019, and she was then discharged on amiodarone after the cardioversion. This was in early December, and about a week to 2 weeks ago, she had recurrent atrial fibrillation. At this time, she has been taking amiodarone after loading appropriately. Past medical history as above. FAMILY HISTORY: Noncontributory. PERSONAL HISTORY: The patient is a nonsmoker. No drug abuse or alcohol abuse. Lives independently at home. Closely followed by her daughter. ALLERGIES: LISTED IN THE CHART. SHE HAS ALLERGIES TO ASPIRIN, WHICH CAUSES HIVES. SHE IS ALLERGIC TO LISINOPRIL HYDROCHLOROTHIAZIDE, GABAPENTIN, AMLODIPINE, AND ALSO SEFERINO. REVIEW OF SYSTEMS: No fever or chills. Not clearly noticed any weight gain or weight loss. No focal neurologic deficits. No visual changes. No hearing loss. No upper respiratory symptoms. She get significantly exertionally short of breath and fatigue recently, noted elevated heart rate, but no palpitations. No GI issues. She has some issues with hematuria and suspected to have UTI. No other major bleeding. Rest of 12-system review is negative. PHYSICAL EXAMINATION: GENERAL: The patient is alert and oriented x3, frail appearing elderly woman, in no acute respiratory distress. No pallor, no icterus, no cyanosis. VITAL SIGNS: Blood pressure 110/70; pulse is 99, irregularly irregular; respirations 18-20 per minute; temperature 97.7; pulse ox 94% on room air. HEENT: Normocephalic and atraumatic. NECK: Supple with no clear jugular venous distention. LUNGS: Bibasilar rales with dorsal kyphoscoliosis. CARDIAC: Regular S1, S2. ABDOMEN: Benign. DIRECTOR OF QUANTITATIVE RESEARCH: Nonfocal. EXTREMITIES: Shows mild pedal edema. LABORATORY DATA: Hemoglobin 11.3, hematocrit 36, white count 6.7, platelet count of 306. Sodium 138, potassium 4.7, BUN 21, creatinine 1.74. BNP yesterday was 425. Protime 13, INR 1.1. Chest x-ray consistent with unremarkable cardiovascular exam. EKG shows atrial fibrillation with rapid ventricular response with poor R-wave progression with lateral ST-T wave changes suggestive of repolarization abnormalities. High sensitive troponin was 11.7. 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 PLAN: At this time, we will switch to IV Lasix 40 mg b.i.d., appears to be in heart failure still. We discussed further management of atrial fibrillation, which is causing obviously significant symptoms. The patient has been taking amiodarone regularly, may be resistant to maintaining sinus rhythm due to underlying cardiac pathology; however, this needs to be re-attempted as she has been off Eliquis for the last week or more, we will perform a BRYCE-guided cardioversion tomorrow. This was discussed with the patient and patient's family, daughter, who are both agreeable. We will schedule for tomorrow. Keep her n.p.o. past midnight. Switch her to p.o. Lopressor 25 mg q.6 hours. Hold off on amiodarone but we will restart tomorrow with maybe a week of loading dose. Continue Eliquis. Importance of compliance with medication on regular basis was discussed, understands and agrees. Thank you for allowing me to partake in her care. Korey Cao MD NRS/MODL / [id number]
[2020-01-29] MEDS: Metoprolol Tartrate 25 MG TABLET PO (20:41)
--- NOTE | 2020-01-30 | US_ITS ---
EXAMINATION: US PELVIS LIMITED (BLADDER) CLINICAL INFORMATION: Hematuria. COMPARISON: None TECHNIQUE: Real-time imaging of the bladder. FINDINGS: BLADDER: Bladder is empty and difficult to evaluate. There are the distal ends of bilateral ureteral stents seen in the bladder. Prevoid bladder volume is 37 mL. Postvoid bladder volume was not obtained. Ureteral jets are not identified. IMPRESSION: Limited exam due to underdistention. Distal end of bilateral ureteral stents seen in the bladder. EXAMINATION: Renal ultrasound CLINICAL INFORMATION: Hematuria COMPARISON: None. TECHNIQUE: Grayscale and color imaging of the kidneys FINDINGS: The right kidney measures 8.1 x 5.3 x 4.6 cm and the left kidney measures 9.2 x 6.1 x 4.8 cm. There is bilateral hydronephrosis, left greater than right. There are stents seen in the renal pelvises bilaterally. No renal stone or mass is seen. There is a 1 cm cyst in the upper pole of the right kidney. IMPRESSION: Bilateral hydronephrosis, left greater than right. Ureteral stents is seen in the renal pelvises. Small right renal cyst.
[2020-01-30 04:00] VITALS: BP 112/55; PULSE 59; RESP 18; TEMP 36.6; O2SAT 98
[2020-01-30] MEDS: Levothyroxine Sodium 50 MCG TABLET PO (05:33)
[2020-01-30 06:51] LABS: MANUAL DIFF FLAG NO
[2020-01-30 06:58] LABS: Basophils Percent Auto 0.2 % (0-2); Eosinophils Absolute Auto 0.2 X10*3/uL (0.0-0.4); Eosinophils Percent Auto 3.4 % (0-4); Hematocrit 34.3 % (37-47); Hemoglobin 10.7 g/dl (12.0-16.0); Imm Gran Abs Auto 0.02 X10*3/uL (0.00-0.03); Imm Gran Pct Auto 0.4 % (0.0-0.4); Lymphocytes Absolute Auto 1.4 X10*3/uL (1.2-4.9); Lymphocytes Percent Auto 25.1 % (20-40); Mean Corpuscular HGB Conc 31.2 g/dl (31.0-35.0); Mean Platelet Volume 9.6 fL (9.4-12.3); Monocytes Absolute Auto 0.4 X10*3/uL (0.1-1.2); Monocytes Percent Auto 6.9 % (2-11); Neutrophils Absolute Auto 3.6 X10*3/uL (2.0-8.3); Platelet Count 297 X10*3/uL (160-400); Red Blood Count 3.69 X10*6/uL (4.20-5.50); Red Cell Distribution Width 17.6 % (11.0-16.0); White Blood Count 5.7 X10*3/uL (4.8-10.8)
[2020-01-30 07:25] LABS: Anion Gap 12 (12-20); Blood Urea Nitrogen 36 mg/dL (9-16); Calcium 7.9 mg/dL (8.4-10.2); Carbon Dioxide 26 mmol/L (22-29); Chloride 104 mmol/L (96-108); Creatinine Clr Calc Pharmacy 8.5; Estimated Glomerular Filt Rate 24; Glucose Fasting 96 mg/dL (60-99); Potassium 3.9 mmol/l (3.3-5.1); Sodium 138 mmol/L (135-145)
[2020-01-30 08:00] VITALS: BP 146/67; PULSE 61; RESP 18; TEMP 36.5; O2SAT 99
[2020-01-30 11:07] VITALS: PULSE 61
[2020-01-30] MEDS: Apixaban 2.5 MG TABLET PO (11:07)
[2020-01-30] MEDS: Amiodarone HCL 200 MG TABLET 400 MG PO (11:07)
[2020-01-30] MEDS: 0.9 % Sodium Chloride Flush 3 ML SYRINGE 2 ML IVFLUSH (11:08)
[2020-01-30 12:00] VITALS: BP 130/67; PULSE 68; RESP 18; TEMP 36.8; O2SAT 98
[2020-01-30 12:33] VITALS: BP 130/67; PULSE 68
[2020-01-30] MEDS: Metoprolol Tartrate 25 MG TABLET PO (12:33)
[2020-01-30 12:34] VITALS: O2SAT 98
--- NOTE | 2020-01-30 13:10 | PM.DS ---
DS: Providers Provider Date of admission: 01/26/20 16:13 Primary care physician: Renu Simon MD Consults: 01/26/20 21:26 Consult to Cardiology Routine Consulting Provider: Korey Cao Reason for consultation: Afib, rvr Has provider been notified: No DS: Diagnosis Discharge Diagnosis (1) Chronic systolic CHF (congestive heart failure): Status: Acute (2) Atrial fibrillation with rapid ventricular response: Status: Acute (3) Urinary tract infection: Status: Acute (4) Hematuria: Status: Acute (5) Chronic kidney disease, stage 4 (severe): Status: Acute (6) Hypothyroid: Status: Acute DS: Summary Hospital Course Hospital Course: patient was admitted for acute on chronic systolic chf and afib with rvr. she was diuresed with IV Lasix, CHF resolved and transitioned back to oral. At discharge she will be on Lasix 20 mg daily, down from 40 mg daily previously. As she did not tolerate the 40 mg and stopped taking them. for her AFib she underwent BRYCE and cardioversion, Eliquis was restarted. She was re-loaded with amiodarone and started on metoprolol, she has been able to maintain sinus rythem. for her hematuria she was noted to have UTI. she was treated with ceftriaxone and will complete 3 more days of ceftin. she had a renal bladder US done to work up the hematuria, results are still pending and should be followed up. she will conitnue her eliquis as she is high risk for cardioembolism, given recent cardioversion. Time Spent with Patient Time attestation: Total time spent providing and/or coordinating discharge services: Physical Exam Vital Signs and I&O and Narrative: Vital Signs and I&O: Vital Signs Temp 98.2 F 01/30/20 12:00 Pulse 68 01/30/20 12:33 Resp 18 01/30/20 12:00 BP 130/67 01/30/20 12:33 Pulse Ox 98 01/30/20 12:34 Intake & Output 01/29/20 01/30/20 01/30/20 18:59 06:59 18:59 Intake Total 410 / 760 350 / 760 240 / 240 Output Total 200 / 200 200 / 200 Balance 210 / 560 350 / 560 40 / 40 Urine Output (Aver age ml/kg/hr) 0.65 0.65 0.65 Intake: Intake, Oral Jazz unt 360 / 710 350 / 710 240 / 240 Intake, IV Amoun t 50 / 50 cefTRIAXone so dium 1 gm In 0.9 50 / 50 % Sodium Chlor maricruz 50 ml @ 100 mls/hr IV Q24H [facility] Rx#: [id number] Output: Output, Urine Am ount 200 / 200 200 / 200 Other: Breakfast % Eate n 75% 50% Number of Unmeas ured Voids 4 Body Mass Index 11.4 General: AO X 3, no acute distress Resp: CTA bilateral CVS: S1,S2,RRR GI: soft, non tender, non distended Neuro: motor grossly intact Psych: appropriate affect DS: Data Data Completed and Pending Labs on day of discharge: Labs from last 24 hours 01/30/20 01/30/20 06:32 06:32 WBC 5.7 RBC 3.69 L Hgb 10.7 L Hct 34.3 L MCV 93.0 MCH 29.0 MCHC 31.2 RDW 17.6 H Plt Count 297 MPV 9.6 Immature Gran % (Auto) 0.4 Neut % (Auto) 64.0 Lymph % (Auto) 25.1 [place] % (Auto) 6.9 Eos % (Auto) 3.4 Baso % (Auto) 0.2 Neut # (Auto) 3.6 Lymph # (Auto) 1.4 [place] # (Auto) 0.4 Eos # (Auto) 0.2 Baso # (Auto) 0.0 Abs Immat Gran (auto) 0.02 Absolute Nucleated RBC 0.000 Nucleated RBC % (auto) 0.0 Sodium 138 Potassium 3.9 Chloride 104 Carbon Dioxide 26 Anion Gap 12 BUN 36 H Creatinine 2.02 H Estim Creat Clear Calc 8.5 Estimated GFR 24 Fasting Glucose 96 Calcium 7.9 L Discharge Plan Discharge Patient Disposition: Home, Self-Care Referrals: Renu Simon MD [Primary Care Provider] - 1 Week (Please call and schedule a follow up appointment with Dr. Simon.) Discharge Medications: New cefuroxime axetil 250 mg tablet 250 mg PO BID Qty: 6 RF: 0 amiodarone 200 mg Tablet 400 mg PO DAILY Qty: 60 RF: 0 metoprolol tartrate [Lopressor] 50 mg tablet 50 mg PO BID Qty: 60 RF: 0 furosemide [Lasix] 20 mg tablet 20 mg PO DAILY Qty: 60 RF: 0 Continued alprazolam 0.25 mg tablet 0.25 mg PO DAILY PRN (Reason: anxiety) 30 Days Qty: 20 RF: 1 alprazolam 0.5 mg Tablet 0.5 mg PO BID PRN (Reason: Anxiety) RF: 0 levothyroxine 50 mcg Tablet 50 mcg PO DAILY RF: 0 apixaban 2.5 mg Tablet 2.5 mg PO BID RF: 0 Discontinued furosemide 40 mg Tablet 40 mg PO DAILY RF: 0 amiodarone 200 mg Tablet 200 mg PO DAILY RF: 0 sulfamethoxazole-trimethoprim [Bactrim] 400-80 mg Tablet 1 tab PO BID RF: 0 Discharge Orders: Discharge Order (Routine); Ordered 01/30/20 Ordered By: Chino Murillo Activity on Discharge: As tolerated Visit Report Forms: Patient Portal Discharge page Care Plan Goals: maintain sinus rhythem Health Concerns: chf, afib, uti, hematuria Plan of Treatment: started metoprolol, reload amiodarone, complete ceftin course, decreased lasix, follow up US of bladder and kidneys.
--- NOTE | 2020-01-30 13:26 | MHC.CM.PN ---
Patient has been medically cleared for dc to home today, no services. Last IMM addressed on 01/28/2020.
== END 2020-01-30 14:35 | disposition home or self-care (01) | DRG 291 ==
PROVIDERS: Internal Medicine Cardiovascular Disease; Admitting Provider Internal Medicine; PCP Internal Medicine; Visit Provider Internal Medicine
PROC: 5A2204Z Restoration of Cardiac Rhythm, Single (ICD-10-PCS; principal; 2020-01-28 12:20)
DX: I13.0 Hypertensive heart and chronic kidney disease with heart failure and stage 1 through stage 4 chronic kidney disease, or unspecified chronic kidney disease (principal); I50.23 Acute on chronic systolic (congestive) heart failure; I48.19 Other persistent atrial fibrillation; N39.0 Urinary tract infection, site not specified; N18.4 Chronic kidney disease, stage 4 (severe); F41.9 Anxiety disorder, unspecified; R31.9 Hematuria, unspecified; E03.9 Hypothyroidism, unspecified; B95.4 Other streptococcus as the cause of diseases classified elsewhere; B96.1 Klebsiella pneumoniae [K. pneumoniae] as the cause of diseases classified elsewhere; Z88.6 Allergy status to analgesic agent; Z79.01 Long term (current) use of anticoagulants; Z79.890 Hormone replacement therapy; Z91.14 Patient's other noncompliance with medication regimen; Z79.899 Other long term (current) drug therapy
CPT/HCPCS: 36415; 71045; 76775; 76857; 80048; 80051; 80076; 82565; 82947; 83735; 83880; 84484; 84520; 85025; 85027; 85610; 85730; 93005; 93010; 93312; 96374; 96375; 99212; 99285; J0696; J1940

== ENCOUNTER → 2020-02-09 10:22 | Outpatient (BNVA) | payer MEDICARE, MEDICAID, SELFPAY | PROVIDERS: PCP Internal Medicine; Referring Provider Internal Medicine; Visit Provider Nurse Practitioner Family | DX: Z76.89 Persons encountering health services in other specified circumstances (principal) ==

== ENCOUNTER → 2020-02-10 11:23 | Outpatient (REF) | payer MEDICARE, MEDICAID, SELFPAY ==
--- NOTE | 2020-02-10 12:02 | ECG_ITS ---
Hook-up date: 2020-02-09 10:43:00 Duration: 23:58:00 Test Indications: AFIB Medications: 50263 QRS complexes 7 Ventricular ectopics which represent <1 % of total QRS comp. * Supraventricular ectopics which represent % of total QRS comp. * Paced QRS complexs which represent % of total QRS comp. VENTRICULAR ECTOPY 7 Isolated 0 Bigeminal Cycles 0 Couplets 0 Runs 0 Beats in Runs * Beats LONGEST at * BPM at :: -- * Beats FASTEST at * BPM at :: -- SUPRAVENTRICULAR ECTOPY * Isolated * Couplets * Runs * Beats in Runs * Beats LONGEST at * BPM at :: -- * Beats FASTEST at * BPM at :: -- HEART RATES 51 MIN at 06:56:16 2020-02-10 55 AVG 62 MAX at 17:17:36 2020-02-09 LONGEST RR 1.6720 secs at 14:38:07 2020-02-09 S-T LEVELS Channel 1 - 128 mm at 10:43:00 2020-02-09 - 128 mm at 10:43:00 2020-02-09 Channel 2 - 128 mm at 10:43:00 2020-02-09 - 128 mm at 10:43:00 2020-02-09 Channel 3 - 128 mm at 03:00:21 -- - 128 mm at 03:00:21 Underlying rhythm is sinus; Average ventricular rate 55/min; range 51-62/min; About 94% of the time, ventricular rate <60/min; Patient diary not available for review. Referred By: Abad Bishop Overread By: ROMEO JAMES
== END ==
LOC: HO.CARD 11:23
PROVIDERS: Visit Provider Internal Medicine Cardiovascular Disease
DX: I48.91 Unspecified atrial fibrillation (principal)
CPT/HCPCS: 93225; 93226

== ENCOUNTER → 2020-02-15 08:38 | Outpatient (REF) | payer MEDICARE, MEDICAID, SELFPAY ==
--- NOTE | 2020-02-15 08:46 | CA_ITS ---
Transthoracic Echocardiogram Patient (Last, First, Middle): Amrik Gray, Gender: Female Date of : 1935 Age: 84 Procedure Date: 02/15/2020 Procedure Type: Transthoracic Echocardiogram Location: OP Height: 149.86 cm Weight: 55.34 kg BSA: 1.49 m2 Heart Rate: bpm BP: 156 / 70 mmHg Production Operations Inspector: DSG Referring MD: Lesvia Wooten DRILLING ENGINEER-C Symptoms: 150.31 Acute heart failure with preserved ejection fracton 148.19 Persistant atrial fibrillation Conclusions: - Normal left ventricular cavity size. The left ventricular systolic function is normal. The visually estimated ejection fraction is between 60-65%. - There is borderline right ventricular systolic function. Findings Left Ventricle Normal left ventricular cavity size. The left ventricular systolic function is normal. The visually estimated ejection fraction is between 60-65%. There is no evidence of regional wall motion abnormalities. Diastolic function is indeterminate on the basis of available data. Right Ventricle There is borderline right ventricular systolic function. Prior Study Comparison Changes noted compared to prior study dated: 12/30/2019. EF 60-65% now (was 35 to 40% before) Measurements 2D Systolic Function EF 4C: 77.20 >55% EF 2C: 61.50 >55% EF BiP: 71.20 >55% Updated in Other Vendor System with Status of Final Abad Bishop MD electronically signed on 02/15/2020 11:20:43 AM with status of Final
== END ==
LOC: HO.CARD 08:38
PROVIDERS: Visit Provider Nurse Practitioner Family
DX: I50.31 Acute diastolic (congestive) heart failure (principal); I48.19 Other persistent atrial fibrillation
CPT/HCPCS: 70120; Q9957

== ENCOUNTER 2020-03-15 09:18 | Outpatient (REF) | payer MEDICARE, MEDICAID, SELFPAY ==
[2020-03-15 11:29] LABS: Alanine Aminotransferase 19 U/L (0-31); Anion Gap 11 (12-20); Aspartate Amino Transferase 30 U/L (5-31); Blood Urea Nitrogen 39 mg/dL (9-16); Calcium 8.5 mg/dL (8.4-10.2); Carbon Dioxide 28 mmol/L (22-29); Chloride 102 mmol/L (96-108); Estimated Glomerular Filt Rate 21; Glucose Random 95 mg/dL (60-115); Potassium 4.3 mmol/l (3.3-5.1); Sodium 137 mmol/L (135-145)
[2020-03-15 11:40] LABS: TSH reflex Free T4 2.12 mIU/mL (0.32-4.0)
== END 2020-03-15 09:19 | disposition home or self-care (01) ==
LOC: HO.LAB 09:18
PROVIDERS: PCP Internal Medicine; Referring Provider Internal Medicine; Visit Provider Nurse Practitioner Family
DX: I48.91 Unspecified atrial fibrillation (principal); R00.1 Bradycardia, unspecified; I13.0 Hypertensive heart and chronic kidney disease with heart failure and stage 1 through stage 4 chronic kidney disease, or unspecified chronic kidney disease; I50.9 Heart failure, unspecified; N18.4 Chronic kidney disease, stage 4 (severe); I42.9 Cardiomyopathy, unspecified; E03.9 Hypothyroidism, unspecified
CPT/HCPCS: 80048; 84443; 84450; 84460; 93005; 99212

== ENCOUNTER 2020-04-03 09:39 | Outpatient (REF) | payer MEDICARE, MEDICAID, SELFPAY ==
[2020-04-03 10:27] LABS: Glucose Urine UA NEG (NEG); Leukocyte Esterase Urine 3+ (NEG); Nitrite Urine POS (NEG); PH 8.5 (5.0-8.0); Urine Blood 2+ (NEG); Urine Ketones NEG (NEG)
[2020-04-03 10:28] LABS: Appearance Urine CLOUDY; Color Urine RED; Urine Protein 3+ MG/DL (NEG-TRACE)
[2020-04-03 10:48] LABS: Bacteria Urine 3+ /LPF; RBC Urine 50-75 /HPF (0); Triple Phosphate Crystal Urine 1+ /LPF; WBC Urine 50-75 /HPF (0-4)
[2020-04-03 10:53] LABS: Anion Gap 10 (12-20); Blood Urea Nitrogen 37 mg/dL (9-16); Calcium 8.4 mg/dL (8.4-10.2); Carbon Dioxide 26 mmol/L (22-29); Chloride 108 mmol/L (96-108); Estimated Glomerular Filt Rate 23; Glucose Random 99 mg/dL (60-115); Potassium 4.9 mmol/l (3.3-5.1); Sodium 139 mmol/L (135-145)
== END 2020-04-03 09:40 | disposition home or self-care (01) ==
LOC: HO.LAB 09:39
PROVIDERS: PCP Internal Medicine; Visit Provider Nurse Practitioner Family
DX: N18.4 Chronic kidney disease, stage 4 (severe) (principal); R35.0 Frequency of micturition; R31.9 Hematuria, unspecified
CPT/HCPCS: 80048; 81001; 87086; 87088; 87186

== ENCOUNTER 2020-05-19 14:42 | Outpatient (REF) | payer MEDICARE, MEDICAID, SELFPAY | END 2020-05-19 14:43 | disposition home or self-care (01) | LOC: HO.LAB 14:42 | PROVIDERS: PCP Internal Medicine; Visit Provider Internal Medicine | DX: Z13.89 Encounter for screening for other disorder (principal) ==

== ENCOUNTER 2020-05-19 15:41 | Inpatient (IN) | payer MEDICARE, MEDICAID, SELFPAY ==
[2020-05-19] VITALS (7 sets, daily range): BP systolic 96–139; BP diastolic 56–84; PULSE 68–98; RESP 16–20; TEMP 36.4–37.1; O2SAT 95–100; BMI 24.8
--- NOTE | 2020-05-19 20:08 | ECG_ITS ---
Test Reason : DIZZYNESS Blood Pressure : / mmHG Vent. Rate : 096 BPM Atrial Rate : 093 BPM P-R Int : 000 ms QRS Dur : 110 ms QT Int : 392 ms P-R-T Axes : 000 -30 142 degrees QTc Int : 495 ms Undetermined rhythm Left axis deviation Incomplete left bundle branch block Moderate voltage criteria for LVH, may be normal variant ST & T wave abnormality, consider lateral ischemia Abnormal ECG When compared with ECG of 28-JAN-2020 14:20, Rhythm change Referred By: Sudha Whitley Electronically Signed By:ROMEO JAMES
--- NOTE | 2020-05-19 20:22 | ED_ITS ---
HPI - Abdominal Pain General Chief Complaint: Abdominal Pain Stated Complaint: ?UTI Time Seen by Provider: 05/19/20 20:01 Source: patient and family Mode of arrival: ambulatory Limitations: language barrier History of Present Illness HPI narrative: 85-year-old [place] female with past medical history of CHF, AFib, hypertension, GERD, cardiomyopathy, history of sinus bradycardia, anxiety, hypothyroidism, CKD stage 4, chronic UTI presents with 2 days of abdominal pain and UTI symptoms. Patient is a poor historian, H&P obtained from medical record and daughter. Daughter states that patient has had several days of UTI symptoms without fevers, chills, chest pain or pressure, palpitations, abdominal distention, and edema. director of real estate utilized all correspondence. MD elicited complaint: abdominal pain Pertinent past history: past UTI Onset (ago): day(s) (2) Pain Consistency: intermittent Location: diffuse Severity: moderate Pain scale (0-10): 5 Quality: aching Relieving factors: nothing Associated symptoms: dysuria Related Data Home Medications Medication Instructions Recorded Confirmed alprazolam 0.5 mg PO BID PRN 01/26/20 05/19/20 furosemide 20 mg tablet 20 mg PO .twice weekly tab 03/15/20 05/19/20 Previous Rx's Medication Instructions Recorded cefuroxime axetil 250 mg PO BID #6 tab 01/30/20 amiodarone 200 mg tablet 200 mg PO DAILY 30 Days #30 tab 03/01/20 apixaban 2.5 mg tablet 2.5 mg PO BID 30 Days #60 tab 03/01/20 metoprolol tartrate 50 mg tablet 50 mg PO BID 30 Days #60 tab 03/01/20 doxycycline hyclate 100 mg capsule 100 mg PO BID #14 cap 03/17/20 amoxicillin 500 mg-potassium 1 tab PO BID #14 tab 04/05/20 clavulanate 125 mg tablet levothyroxine 50 mcg tablet 50 mcg PO QAM #30 tab 04/07/20 mirtazapine 7.5 mg tablet 7.5 mg PO BEDTIME #30 tab 05/04/20 Allergies Allergy/AdvReac Type Severity Reaction Status Date / Time amlodipine [From [facility]] Allergy Intermediate HIVES Verified 03/14/20 13:33 aspirin [ASA] Allergy Intermediate HIVES Verified 03/14/20 13:33 robert [ROBERT] Allergy Intermediate HIVES Verified 01/28/20 19:23 hydrochlorothiazide Allergy Unknown Hives Verified 03/14/20 13:33 gabapentin AdvReac Unknown dizziness Verified 03/14/20 13:33 lisinopril AdvReac Unknown Cough Verified 03/14/20 13:33 Review of Systems Review of Systems Constitutional: No Fever, No Chills ENT/Mouth: No sore throat Eyes: No Eye Pain, No Swelling, No Redness Cardiovascular: No Chest Pain, No SOB Respiratory: No Cough, No Sputum, No Wheezing Gastrointestinal: No Nausea, no Vomiting, No Diarrhea, positive abdominal pain Genitourinary: positive Dysuria, positive urinary frequency, positive Hematuria, no Flank Pain, no hesitancy Musculoskeletal: No joint pain, No Myalgias Skin: No Skin Lesions, No rash Neuro: No Weakness, No Numbness, No Headache Psych: No Anxiety/Panic, No Depression Heme/Lymph: No Bruising, No Lymphadenopathy Endocrine: No Polyuria, No Polydipsia Yes all other systems are reviewed and are negative Physical Exam Vital Signs: Vital Signs: Last Vital Signs Temp 98.4 F 05/20/20 01:31 Pulse 94 05/20/20 01:31 Resp 17 05/20/20 01:31 BP 108/43 L 05/20/20 01:31 Pulse Ox 97 05/20/20 01:31 Body Mass Index 24.8 Appearance: Alert. Oriented X2 No acute distress. Eyes: Pupils equal, round and reactive to light. ENT: Pharynx normal. Neck: Normal inspection. Neck supple. CVS: Tachycardic heart rate and rhythm. Pulses normal. Respiratory: No respiratory distress. Breath sounds normal. Abdomen: Soft and diffuse tenderness to palpation, no rigidity Skin: Skin warm and dry. Normal skin color. Normal skin turgor. Extremities: No lower extremity edema. Neuro: No motor deficit. No sensory deficit. Course Course Course Narrative: 85-year-old female presents with abdominal pain and UTI symptoms for the past 2 days. Plan of care is for CBC, Chem 7, lactic, cultures, urinalysis, CT scan of abdomen and pelvis, and EKG. Patient does have history of bilateral ureteral stents which are still in place, and recurrent UTIs. White count 9.9, potassium slightly elevated at 5.2, BUN 116 baseline is in the 30s, creatinine 7.17 baseline is 2.2. We will res uscitate with 30 milliliters/kilogram of normal saline, this patient is not septic but does have a UTI. Lactic acid is 1.3. CT scan of abdomen does show some mild proctitis, ceftriaxone and Flagyl given for antibiotics. Discussion with hospitalist patient will be admitted, nephrology feels that this could possibly be a urology problem secondary to stents being placed for several years. Call out to Urology. Plan is to admit for UTI, JOVON. Multiple discussions with daughter who has been waiting in the waiting room throughout course of patient's care. director of real estate utilized for all correspondence Consultations Consultation #1: Abdiel Time: 21:55 Consultation #2: Daren Time: 22:10 MDM - Abdominal Pain Differential Diagnosis Differential diagnosis: Likely abdominal pain, aortic dissection, acute ap pendicitis, bowel perforation, calculus of kidney, constipation, gastroenteritis, pancreatitis and small bowel obstruction Medical Records Attestation: I reviewed the patient's medical records. Lab Data Attestation: I reviewed the patient's lab results. Result diagrams: 05/19/20 20:36 05/19/20 20:36 Labs: Lab Results 05/19/20 05/19/20 05/19/20 Range/Units 20:36 20:36 20:36 WBC 9.9 (4.8-10.8) X10*3/uL RBC 3.74 L (4.20-5.50) X10*6/uL Hgb 10.9 L (12.0-16.0) g/dl Hct 33.7 L (37-47) % MCV 90.1 (80-98) fL MCH 29.1 (27.0-33.0) pg MCHC 32.3 (31.0-35.0) g/dl RDW 15.6 (11.0-16.0) % Plt Count 478 H D (160-400) X10*3/uL MPV 9.7 (9.4-12.3) fL Immature Gran % (Auto) 0.6 H (0.0-0.4) % Neut % (Auto) 76.5 H (45-73) % Lymph % (Auto) 15.2 L (20-40) % [place] % (Auto) 7.2 (2-11) % Eos % (Auto) 0.4 (0-4) % Baso % (Auto) 0.1 (0-2) % Lymph # (Auto) 1.5 (1.2-4.9) X10*3/uL [place] # (Auto) 0.7 (0.1-1.2) X10*3/uL Eos # (Auto) 0.0 (0.0-0.4) X10*3/uL Baso # (Auto) 0.0 (0.0-0.2) X10*3/uL Abs Immat Gran (auto) 0.06 H (0.00-0.03) X10*3/uL Absolute Neuts (auto) 7.6 (2.0-8.3) X10*3/uL Absolute Nucleated RBC 0.000 (0.0-0.012) X10*3/uL Nucleated RBC % (auto) 0.0 (0.0-0.2) /100WBC PT 26.6 H (10.8-13.0) SEC INR 2.2 H (0.9-1.1) APTT 38.7 H (24.1-38.0) SEC Sodium 135 (135-145) mmol/L Potassium 5.2 H (3.3-5.1) mmol/l Chloride 103 (96-108) mmol/L Carbon Dioxide 18 L (22-29) mmol/L Anion Gap 19 (12-20) BUN 116 H* D (9-16) mg/dL Creatinine 7.17 H* (0.5-1.4) mg/dL Estim Creat Clear Calc 4.4 Estimated GFR 5 Random Glucose 123 H (60-115) mg/dL Lactic Acid (0.5-2.0) mmol/L Calcium 8.2 L (8.4-10.2) mg/dL Troponin I High Sens (<3.5-17.0) ng/L Urine Color Urine Appearance Urine pH (5.0-8.0) Ur Specific [place] (1.005-1.025) Urine Protein (NEG-TRACE) MG/DL Urine Glucose (UA) (NEG) MG/DL Urine Ketones (NEG) MG/DL Urine Blood (NEG) Urine Nitrite (NEG) Ur Leukocyte Esterase (NEG) Urine RBC (0) /HPF Urine WBC (0-4) /HPF Ur Squamous Epith Cells /LPF Urine Bacteria /LPF 05/19/20 05/19/20 05/19/20 Range/Units 20:36 20:36 21:10 WBC (4.8-10.8) X10*3/uL RBC (4.20-5.50) X10*6/uL Hgb (12.0-16.0) g/dl Hct (37-47) % MCV (80-98) fL MCH (27.0-33.0) pg MCHC (31.0-35.0) g/dl RDW (11.0-16.0) % Plt Count (160-400) X10*3/uL MPV (9.4-12.3) fL Immature Gran % (Auto) (0.0-0.4) % Neut % (Auto) (45-73) % Lymph % (Auto) (20-40) % [place] % (Auto) (2-11) % Eos % (Auto) (0-4) % Baso % (Auto) (0-2) % Lymph # (Auto) (1.2-4.9) X10*3/uL [place] # (Auto) (0.1-1.2) X10*3/uL Eos # (Auto) (0.0-0.4) X10*3/uL Baso # (Auto) (0.0-0.2) X10*3/uL Abs Immat Gran (auto) (0.00-0.03) X10*3/uL Absolute Neuts (auto) (2.0-8.3) X10*3/uL Absolute Nucleated RBC (0.0-0.012) X10*3/uL Nucleated RBC % (auto) (0.0-0.2) /100WBC PT (10.8-13.0) SEC INR (0.9-1.1) APTT (24.1-38.0) SEC Sodium (135-145) mmol/L Potassium (3.3-5.1) mmol/l Chloride (96-108) mmol/L Carbon Dioxide (22-29) mmol/L Anion Gap (12-20) BUN (9-16) mg/dL Creatinine (0.5-1.4) mg/dL Estim Creat Clear Calc Estimated GFR Random Glucose (60-115) mg/dL Lactic Acid 1.3 (0.5-2.0) mmol/L Calcium (8.4-10.2) mg/dL Troponin I High Sens 12.5 (<3.5-17.0) ng/L Urine Color YELLOW Urine Appearance CLOUDY Urine pH 8.5 H (5.0-8.0) Ur Specific [place] 1.015 (1.005-1.025) Urine Protein 3+ H (NEG-TRACE) MG/DL Urine Glucose (UA) NEG (NEG) MG/DL Urine Ketones NEG (NEG) MG/DL Urine Blood 3+ H (NEG) Urine Nitrite NEG (NEG) Ur Leukocyte Esterase 3+ H (NEG) Urine RBC 5-9 H (0) /HPF Urine WBC 76-150 H (0-4) /HPF Ur Squamous Epith Cells TRACE /LPF Urine Bacteria 3+ /LPF Imaging Data CT scan - abdomen: Attestation: I personally reviewed and interpreted this imaging study as follows: Radiologist's impression: EXAMINATION: CT ABDOMEN AND PELVIS WITHOUT CONTRAST CLINICAL INFORMATION: Pain, bilateral ureteral stents COMPARISON: None TECHNIQUE: Multidetector volumetric imaging was performed from the superior aspect of the liver through the pubic symphysis. Sagittal and coronal reformatted images were obtained on the technologist's workstation. This CT examination was performed using dose optimization techniques as appropriate, variously including the following: *Automated exposure control *Adjustment of mA and/or kV according to patient size (this includes techniques or standardized protocols for targeted exams where dose is matched to indication/reason for exam; i.e. extremities or head) *Use of iterative reconstruction technique DLP: 354 mGy-cm FINDINGS: LUNG BASES: Some chronic markings here with bronchial thickening at the lung bases. LIVER, GALLBLADDER, AND BILIARY TREE: The liver is normal in size, shape, and attenuation. No focal hepatic lesion or biliary ductal dilatation is present. Patient is likely status post cholecystectomy PANCREAS: Poorly delineated. Probable fatty replacement of the pancreas SPLEEN: Unremarkable. ADRENAL GLANDS: Unremarkable. KIDNEYS AND URETERS: There is dense within the kidneys bilaterally. These emanate into the bladder. There is hydronephrosis bilaterally. Right greater than left. BLADDER: Unremarkable. GASTROINTESTINAL TRACT: Some soft tissue stranding around the rectum may be inflammatory. ABDOMINAL WALL: Fatty inguinal herniations bilaterally. LYMPH NODES: Normal. VASCULAR: Vascular calcifications. No aneurysmal change PELVIC VISCERA: Unremarkable. OSSEOUS STRUCTURES: Unremarkable. CT/CT abdomen pelvis wo con IMPRESSION: ureteral stents in place bilaterally. There is significant hydronephrosis right greater than left kidney with prominent ureters. Some mild soft tissue stranding around the distal rectosigmoid. This may be inflammatory in etiology. ECG Data Attestation: I personally reviewed and interpreted this ECG as follows: ECG interpretation date: 05/19/20 ECG interpretation time: 21:26 Interpretation: Vent. Rate : 096 BPM Atrial Rate : 093 BPM P-R Int : 000 ms QRS Dur : 110 ms QT Int : 392 ms P-R-T Axes : 000 -30 142 degrees QTc Int : 495 ms Atrial fibrillation Left axis deviation Incomplete left bundle branch block Moderate voltage criteria for LVH, may be normal variant ST & T wave abnormality, consider lateral ischemia Abnormal ECG When compared with ECG of 28-JAN-2020 14:20, Atrial fibrillation has replaced Sinus rhythm Vent. rate has increased BY 41 BPM Incomplete left bundle branch block is now Present Critical Care Time Critical Care Time Critical Care Time: Yes Total Critical Care Time: 45 Attestation: I have personally provided critical care time exclusive of time spent on separately billable procedures. Time includes review of laboratory data, radiology results, discussion with consultants, and monitoring for potential decompensation. Interventions were performed as documented. Discharge Plan Discharge Clinical Impression: JOVON (acute kidney injury) Urinary tract infection Qualifiers: Urinary tract infection type: acute cystitis Hematuria presence: with hematuria Qualified Code(s): N30.01 - Acute cystitis with hematuria Patient Disposition: Admitted As Inpatient [facility] Past Medical History Attestation statement: The following information was validated with the patient. Source: old records reviewed Medical History Anxiety Ramos's palsy Cervical cancer Congestive heart failure DVT (deep venous thrombosis) GERD (gastroesophageal reflux disease) Hydronephrosis Hypercholesterolemia Hypertension Lumbar degenerative disc disease Osteoarthritis Paroxysmal atrial fibrillation Peripheral vascular disease Vitamin D deficiency Surgical History H/O elbow surgery History of bladder surgery History of cholecystectomy Family History Family History Father Hypertension Stroke CVD (cardiovascular disease) Mother Hypoglycemia Social History Social History Alcohol intake: never Smoking Status: Never smoker Smoked in Last 30 Days: No Second Hand Smoke Exposure: No Use of substances other than those prescribed or required for medical reasons: No Advance Directives: No service: No Current occupational status: disabled
[2020-05-19 20:43] LABS: MANUAL DIFF FLAG NO
[2020-05-19 20:46] LABS: Basophils Percent Auto 0.1 % (0-2); Eosinophils Percent Auto 0.4 % (0-4); Hematocrit 33.7 % (37-47); Hemoglobin 10.9 g/dl (12.0-16.0); Imm Gran Abs Auto 0.06 X10*3/uL (0.00-0.03); Imm Gran Pct Auto 0.6 % (0.0-0.4); Lymphocytes Absolute Auto 1.5 X10*3/uL (1.2-4.9); Lymphocytes Percent Auto 15.2 % (20-40); Mean Corpuscular HGB Conc 32.3 g/dl (31.0-35.0); Mean Corpuscular Hemoglobin 29.1 pg (27.0-33.0); Mean Corpuscular Volume 90.1 fL (80-98); Mean Platelet Volume 9.7 fL (9.4-12.3); Monocytes Absolute Auto 0.7 X10*3/uL (0.1-1.2); Monocytes Percent Auto 7.2 % (2-11); Neutrophils Absolute Auto 7.6 X10*3/uL (2.0-8.3); Neutrophils Percent Auto 76.5 % (45-73); Platelet Count 478 X10*3/uL (160-400); Red Blood Count 3.74 X10*6/uL (4.20-5.50); Red Cell Distribution Width 15.6 % (11.0-16.0); White Blood Count 9.9 X10*3/uL (4.8-10.8)
[2020-05-19 20:52] LABS: INTERNATIONAL NORM RATIO 2.2 (0.9-1.1); Prothrombin Time 26.6 SEC (10.8-13.0)
[2020-05-19 20:54] LABS: Partial Thromboplastin Time 38.7 SEC (24.1-38.0)
[2020-05-19 21:05] LABS: Lactic Acid 1.3 mmol/L (0.5-2.0)
[2020-05-19 21:14] LABS: Troponin-I High Sensitivity 12.5 ng/L (<3.5-17.0)
[2020-05-19 21:19] LABS: Glucose Urine UA NEG (NEG); Leukocyte Esterase Urine 3+ (NEG); Nitrite Urine NEG (NEG); PH 8.5 (5.0-8.0); Specific Gravity - Urine 1.015 (1.005-1.025); UACC Culture Trigger YES; Urine Blood 3+ (NEG); Urine Ketones NEG (NEG)
[2020-05-19 21:20] LABS: Appearance Urine CLOUDY; Color Urine YELLOW; Urine Protein 3+ MG/DL (NEG-TRACE)
[2020-05-19 21:28] LABS: Bacteria Urine 3+ /LPF; Squamous Epithelial Cell Urine TRACE /LPF
[2020-05-19 21:37] LABS: Anion Gap 19 (12-20); Blood Urea Nitrogen 116 mg/dL (9-16); Calcium 8.2 mg/dL (8.4-10.2); Carbon Dioxide 18 mmol/L (22-29); Chloride 103 mmol/L (96-108); Creatinine Clr Calc Pharmacy 4.4; Estimated Glomerular Filt Rate 5; Glucose Random 123 mg/dL (60-115); Potassium 5.2 mmol/l (3.3-5.1); Sodium 135 mmol/L (135-145)
[2020-05-19] MEDS: SODIUM CHLORIDE 1674 ML IVCONT (22:23)
[2020-05-19] MEDS: cefTRIAXone sodium 1 GM in 0.9 % Sodium Chloride 50 ML IV (22:24)
[2020-05-19] MEDS: metroNIDAZOLE 500 MG TABLET PO (22:24)
--- NOTE | 2020-05-19 23:27 | PM.IMHP ---
History of Present Illness Date of Service: 05/19/20 Chief Complaint: Not feeling well 85-year-old [place]-speaking female with past medical history of anxiety, Ramos's palsy, cervical cancer, CHF, DVT, GERD, hydronephrosis, HTN, hypercholesterolemia, paroxysmal AFib on anticoagulant who presents to the hospital with complaints of not feeling well. Patient reports that she went to her PCP complaining that she has not been feeling well she has low oral intake, abdominal pain that is diffuse as well as suprapubic pain and therefore he asked her to come to the ED. Patient reports that her symptoms started about 2-3 days ago, she has diffuse abdominal pain, she is also complaining of flank pain bilaterally, she has not eating much due to the abdominal pain, not associated with any nausea or vomiting, no diarrhea constipation. She denies any urinary symptoms including no frequency urgency or dysuria. She has no chest pain, no shortness of breath, no cough, no sputum production, no headache or change in vision, no weakness numbness or tingling. To the ED vitals are stable with no significant abnormal findings. Labs are significant for WBC count of 9.9, hemoglobin of 10.9, hematocrit 33.7, PT of 26.6, INR of 2.2, sodium of 135, potassium 5.2, BUN of 116, creatinine of 7.17 (baseline in March), lactic acid of 1.3, UA positive for leukocyte [place], large number of WBC, COVID-[address] abdomen shows in place bilaterally, significant hydronephrosis greater on the right than the left kidney with prominent uterus. Some mild tissue stranding around the distal rectosigmoid. Past medical history: Ramos's palsy, cervical cancer, CHF, DVT, GERD, hydronephrosis status post bilateral stents, hypertension, HLD, paroxysmal AFib on apixaban, anxiety Past surgical history: Bladder surgery and elbow surgery Family history: Significant for CVD, hypertension, and stroke Social history: Comes from home, lives with her son, and ambulates independently, denies tobacco alcohol or illicit drugs [facility] Medical History Anxiety Ramos's palsy Cervical cancer Congestive heart failure DVT (deep venous thrombosis) GERD (gastroesophageal reflux disease) Hydronephrosis Hypercholesterolemia Hypertension Lumbar degenerative disc disease Osteoarthritis Paroxysmal atrial fibrillation Peripheral vascular disease Vitamin D deficiency Family History Father Hypertension Stroke CVD (cardiovascular disease) Mother Hypoglycemia Surgical History H/O elbow surgery History of bladder surgery History of cholecystectomy Social History Alcohol intake: never Smoking Status: Never smoker Smoked in Last 30 Days: No Second Hand Smoke Exposure: No Use of substances other than those prescribed or required for medical reasons: No Advance Directives: No service: No Current occupational status: disabled Meds Allergies Allergy/AdvReac Type Severity Reaction Status Date / Time amlodipine [From [facility]] Allergy Intermediate HIVES Verified 03/14/20 13:33 aspirin [ASA] Allergy Intermediate HIVES Verified 03/14/20 13:33 robert [ROBERT] Allergy Intermediate HIVES Verified 01/28/20 19:23 hydrochlorothiazide Allergy Unknown Hives Verified 03/14/20 13:33 gabapentin AdvReac Unknown dizziness Verified 03/14/20 13:33 lisinopril AdvReac Unknown Cough Verified 03/14/20 13:33 Home Medications Medication Instructions Recorded Confirmed Type alprazolam 0.5 mg PO BID PRN 01/26/20 05/19/20 History furosemide 20 mg tablet 20 mg PO .twice weekly tab 03/15/20 05/19/20 History Physical Exam Vital Signs and Narrative: Vital Signs: Last Vital Signs Temp 98.2 F 05/19/20 20:13 Pulse 98 05/19/20 20:13 Resp 16 05/19/20 20:13 BP 107/78 05/19/20 20:13 Pulse Ox 96 05/19/20 20:13 Body Mass Index 24.8 Const: General: cooperative and no acute distress Orientation/consciousness: patient oriented x3 Eyes: General: appearance normal, both eyes and all related structures Resp: Effort & Inspection: normal respiratory effort and able to speak in complete sentences Cardio: Rate: regular rate Rhythm: regular rhythm GI: Palpation (GI): Soft to palpation Auscultation: normal bowel sounds : Other: Suprapubic tenderness, no CVA tenderness bilaterally Skin: General skin exam: no rashes or lesions noted Neuro: General: patient oriented x3 Cognition (Neuro): normal cognition Extrem: General: Yes normal to inspection and Yes no pedal edema Results Labs CBC and Chem 7: 05/19/20 20:36 05/19/20 20:36 Labs: Laboratory Results - last 24 hr 05/19/20 05/19/20 05/19/20 20:36 20:36 20:36 Hgb 10.9 L MCV 90.1 MCH 29.1 MCHC 32.3 RDW 15.6 Plt Count 478 H D MPV 9.7 Immature Gran % (Auto) 0.6 H Neut % (Auto) 76.5 H Lymph % (Auto) 15.2 L [place] % (Auto) 7.2 Eos % (Auto) 0.4 Baso % (Auto) 0.1 Lymph # (Auto) 1.5 [place] # (Auto) 0.7 Eos # (Auto) 0.0 Baso # (Auto) 0.0 Abs Immat Gran (auto) 0.06 H Absolute Neuts (auto) 7.6 Absolute Nucleated RBC 0.000 Nucleated RBC % (auto) 0.0 PT 26.6 H INR 2.2 H APTT 38.7 H Anion Gap 19 Estim Creat Clear Calc 4.4 Estimated GFR 5 Random Glucose 123 H Lactic Acid Calcium 8.2 L Troponin I High Sens Urine Color Urine Appearance Urine pH Ur Specific [place] Urine Protein Urine Glucose (UA) Urine Ketones Urine Blood Urine Nitrite Ur Leukocyte Esterase Urine RBC Urine WBC Ur Squamous Epith Cells Urine Bacteria 05/19/20 05/19/20 05/19/20 20:36 20:36 21:10 Hgb MCV MCH MCHC RDW Plt Count MPV Immature Gran % (Auto) Neut % (Auto) Lymph % (Auto) [place] % (Auto) Eos % (Auto) Baso % (Auto) Lymph # (Auto) [place] # (Auto) Eos # (Auto) Baso # (Auto) Abs Immat Gran (auto) Absolute Neuts (auto) Absolute Nucleated RBC Nucleated RBC % (auto) PT INR APTT Anion Gap Estim Creat Clear Calc Estimated GFR Random Glucose Lactic Acid 1.3 Calcium Troponin I High Sens 12.5 Urine Color YELLOW Urine Appearance CLOUDY Urine pH 8.5 H Ur Specific [place] 1.015 Urine Protein 3+ H Urine Glucose (UA) NEG Urine Ketones NEG Urine Blood 3+ H Urine Nitrite NEG Ur Leukocyte Esterase 3+ H Urine RBC 5-9 H Urine WBC 76-150 H Ur Squamous Epith Cells TRACE Urine Bacteria 3+ Imaging Radiologist's Impressions: Impressions Abdomen/Pelvis CT 05/19/20 20:22 IMPRESSION: ureteral stents in place bilaterally. There is significant hydronephrosis right greater than left kidney with prominent ureters. Some mild soft tissue stranding around the distal rectosigmoid. This may be inflammatory in etiology. Assessment and Plan (1) JOVON (acute kidney injury): Status: Acute (2) Paroxysmal atrial fibrillation: Problem details: October 2019 echo normal left ventricular function moderate mitral stenosis dilated left atrium patent foramen ovale December 2019 EF 35% with global hypokinesis cardioversion done Status: Acute (3) Hematuria: Qualifiers: Hematuria type: unspecified type Qualified Code(s): R31.9 - Hematuria, unspecified Status: Acute (4) Urinary tract infection: Qualifiers: Hematuria presence: with hematuria Urinary tract infection type: acute cystitis Qualified Code(s): N30.01 - Acute cystitis with hematuria Status: Acute This is an 85-year-old female with past medical history of hydronephrosis status post bilateral stent placement, who presents to the hospital with abdominal pain found to have UTI as well as JOVON. # JOVON - possibly secondary to stent obstruction versus secondary to UTI - patient has significant increase in her creatinine and BUN from baseline of 2 - she has bilateral stents for history of hydronephrosis - patient also has UTI with no evidence of acute sepsis Plan: - will start patient on IV antibiotics based on cultures from March 2020 which grew protease and Enterococcus faecalis - IV fluids - will consult nephrology as well as Urology for the stents # UTI - possibly secondary to stent - will start on IV antibiotics - consult urology - follow blood and urine cultures # abdominal pain - secondary to colitis - will start her on Flagyl, as well as ceftriaxone for above # paroxysmal AFib - continue apixaban and metoprolol # CHF - does not appear to be in acute exacerbation - continue Lasix, amiodarone and metoprolol DVT prophylaxis: Apixaban
[2020-05-20] VITALS (9 sets, daily range): BP systolic 100–131; BP diastolic 43–75; PULSE 91–105; RESP 15–19; TEMP 36.8–36.9; O2SAT 96–100
[2020-05-20 00:31] LABS: COVID-19 Test Negative (Negative)
[2020-05-20] MEDS: Lactated Ringers 1,000 ML 100 ML IVCONT ×2 (01:47→09:21)
[2020-05-20] MEDS: 0.9 % Sodium Chloride Flush 3 ML SYRINGE IVFLUSH ×3 (01:47→16:28)
[2020-05-20 05:46] LABS: MANUAL DIFF FLAG NO
[2020-05-20 05:49] LABS: Basophils Percent Auto 0.1 % (0-2); Eosinophils Percent Auto 0.5 % (0-4); Hematocrit 33.3 % (37-47); Hemoglobin 10.6 g/dl (12.0-16.0); Imm Gran Abs Auto 0.04 X10*3/uL (0.00-0.03); Imm Gran Pct Auto 0.5 % (0.0-0.4); Lymphocytes Absolute Auto 1.6 X10*3/uL (1.2-4.9); Lymphocytes Percent Auto 17.8 % (20-40); Mean Corpuscular HGB Conc 31.8 g/dl (31.0-35.0); Mean Corpuscular Volume 91.2 fL (80-98); Mean Platelet Volume 10.2 fL (9.4-12.3); Monocytes Absolute Auto 0.5 X10*3/uL (0.1-1.2); Monocytes Percent Auto 5.8 % (2-11); Neutrophils Absolute Auto 6.6 X10*3/uL (2.0-8.3); Neutrophils Percent Auto 75.3 % (45-73); Platelet Count 438 X10*3/uL (160-400); Red Blood Count 3.65 X10*6/uL (4.20-5.50); Red Cell Distribution Width 15.9 % (11.0-16.0); White Blood Count 8.7 X10*3/uL (4.8-10.8)
[2020-05-20] MEDS: metroNIDAZOLE/NS 500 MG/100 ML PIGGYBACK 100 MG IV ×3 (06:02→23:43)
[2020-05-20] MEDS: Levothyroxine Sodium 50 MCG TABLET PO (06:02)
[2020-05-20 06:25] LABS: Anion Gap 21 (12-20); Blood Urea Nitrogen 107 mg/dL (9-16); Calcium 7.7 mg/dL (8.4-10.2); Carbon Dioxide 14 mmol/L (22-29); Chloride 107 mmol/L (96-108); Creatinine Clr Calc Pharmacy 4.9; Estimated Glomerular Filt Rate 6; Glucose Random 90 mg/dL (60-115); Potassium 5.4 mmol/l (3.3-5.1); Sodium 137 mmol/L (135-145)
--- NOTE | 2020-05-20 08:06 | PC.NURSE ---
pt's daughter and hcp (jeevan lomeli, ) called [facility] [place] and was updated on pt status.
--- NOTE | 2020-05-20 08:21 | PC.NURSE ---
pt ate less than 25% of breakfast, fluids encouraged. pt is speaking with her daughter on her cell phone. pt's iv is in r ac and she keeps bending her arm so fluids are taking a little longer to infuse.
[2020-05-20] MEDS: Metoprolol Tartrate 50 MG TABLET PO (09:22)
[2020-05-20] MEDS: Amiodarone HCL 200 MG TABLET PO (09:22)
[2020-05-20] MEDS: Apixaban 2.5 MG TABLET PO (09:22)
--- NOTE | 2020-05-20 11:33 | P.CONNP_ITS ---
History of Present Illness Reason for Consult Consult date: 05/20/20 Reason for consult: jovon Chief Complaint Chief complaint: UTI, JOVON History of Present Illness Narrative: Full renal consult to follow 85-year-old Bulgarian-speaking female with past medical history of anxiety, Ramos's palsy, cervical cancer, CHF, DVT, GERD, hydronephrosis, HTN, hypercholesterolemia, paroxysmal AFib on anticoagulant who presents to the hospital with complaints of not feeling well and noted JOVON on CKD , hyperK and marjorie hydro despite marjorie ureteral stents bsl SCr 2.0 daughter ( Awida [phone] who is also her HPxy), contacrted and she states her Mom had ureteral stents placed at [facility] 18 months ago for cervical cancer blocking the ureteral tubes and that she has them periodically replced but doesnt know how long ago. Non-Oliguric JOVON on JOVON with marjorie hydro and Obs uropathy despite marjorie ureteral stents REC: change IVF to IV NaHCO3; urol consult and needs cysto with retrograde and stent replaced vs marjorie Nephrostomy tubes Her daughter is not sure her Mom would want even short term HD but hopefully we can avoid this destini if the Obs uropthy can be fixed. At this time there is no urgent need for HD but the Obs needs to be fixed [facility] Past Medical History Medical History Anxiety Ramos's palsy Cervical cancer Congestive heart failure DVT (deep venous thrombosis) GERD (gastroesophageal reflux disease) Hydronephrosis Hypercholesterolemia Hypertension Lumbar degenerative disc disease Osteoarthritis Paroxysmal atrial fibrillation Peripheral vascular disease Vitamin D deficiency Family History Family History Father Hypertension Stroke CVD (cardiovascular disease) Mother Hypoglycemia Surgical History Surgical History H/O elbow surgery History of bladder surgery History of cholecystectomy Social History Social History Alcohol intake: never Smoking Status: Never smoker Smoked in Last 30 Days: No Second Hand Smoke Exposure: No Use of substances other than those prescribed or required for medical reasons: No Advance Directives: No service: No Current occupational status: disabled Meds Allergies Allergy/AdvReac Type Severity Reaction Status Date / Time amlodipine [From NORVASC] Allergy Intermediate HIVES Verified 03/14/20 13:33 aspirin [ASA] Allergy Intermediate HIVES Verified 03/14/20 13:33 robert [ROBERT] Allergy Intermediate HIVES Verified 01/28/20 19:23 hydrochlorothiazide Allergy Unknown Hives Verified 03/14/20 13:33 gabapentin AdvReac Unknown dizziness Verified 03/14/20 13:33 lisinopril AdvReac Unknown Cough Verified 03/14/20 13:33 Home Medications Medication Instructions Recorded Confirmed Type alprazolam 0.5 mg PO BID PRN 01/26/20 05/19/20 History furosemide 20 mg tablet 20 mg PO .twice weekly tab 03/15/20 05/19/20 History Physical Exam Vital Signs: Last Vital Signs Temp 98.3 F 05/20/20 08:15 Pulse 100 05/20/20 09:22 Resp 16 05/20/20 08:15 BP 111/65 05/20/20 09:22 Pulse Ox 99 05/20/20 08:15 Body Mass Index 24.8 Results Lab Results Result Diagrams: 05/20/20 04:45 05/20/20 04:34 Lab results: Chemistry 05/19/20 05/20/20 20:36 04:34 Sodium 135 137 Potassium 5.2 H 5.4 H Carbon Dioxide 18 L 14 L BUN 116 H* D 107 H* Creatinine 7.17 H* 6.44 H* Calcium 8.2 L 7.7 L D Hematology 05/19/20 05/20/20 20:36 04:45 WBC 9.9 8.7 Hgb 10.9 L 10.6 L Plt Count 478 H D 438 H Urinalysis 05/19/20 21:10 Urine Color YELLOW Urine Appearance CLOUDY Urine pH 8.5 H Ur Specific Index 1.015 Urine Protein 3+ H Urine Glucose (UA) NEG Urine Ketones NEG Urine Blood 3+ H Urine Nitrite NEG Ur Leukocyte Esterase 3+ H Urine RBC 5-9 H Urine WBC 76-150 H Ur Squamous Epith Cells TRACE
[2020-05-20] MEDS: Sodium Bicarbonate 8.4% 100 MEQ in Dextrose 5 % 900 ML IV (12:24)
--- NOTE | 2020-05-20 13:15 | MHC.CM.PN ---
Attempted to meet with patient in regards to discharge planning. Nursing care being provided to patient at this time. Spoke with patient's daughter/HCP, Alina via telephone at [phone]. Patient lives on the 1st floor of a 2 family house. Patient's daughter lives on the 2nd floor. 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 Family is essentially with patient 18/11. Alina anticipates patient will be able to safely return home with new referral to [facility]NA. Alina requesting referral to [facility]. Referral made via allscripts. PCP verified. HCP verified to be on file. IMM explained and left at patient's bedside as requested. Continue to monitor for d/c needs.
--- NOTE | 2020-05-20 13:27 | PC.NURSE ---
Hospitalist and Urologist both in to see pt within past two hour. Orders provided to change IVF. IVF hung per emar. Pt continues to wait for bed assignment.
--- NOTE | 2020-05-20 13:38 | PM.CNNEP ---
History of Present Illness Reason for Consult Consult date: 05/20/20 Reason for consult: JOVON Chief Complaint Chief complaint: UTI, JOVON History of Present Illness Narrative: Asked t see PT fro JOVON on CKD in setting of failure to thrive at home and CT revelaing bilateral hydro despite bilater ureteral stens in place. PT unablel to provid e any info but I was ble to conatact her diaghter who knows some of her mom's medcal hsitory PT goes to [facility] for her cervical cancer care and has had marjorie stents placed at [facility] deo back 18 months and has had them replaced on several occassions..she does no know when it was last done. Pt overall is feeling better then when she came in. Unclear how much urine she has nade since adm. Repeat labs are noted and SCr slt decr and HCO3 decr and K remains elevated. Review of Systems Review of Systems Constitutional: No Fever, No Chills ENT/Mouth: No sore throat Eyes: No Eye Pain, No Swelling, No Redness Cardiovascular: No Chest Pain, No SOB Respiratory: No Cough, No Sputum, No Wheezing Gastrointestinal: No Nausea, no Vomiting, No Diarrhea, positive abdominal pain Genitourinary: positive Dysuria, positive urinary frequency, positive Hematuria, no Flank Pain, no hesitancy Musculoskeletal: No joint pain, No Myalgias Skin: No Skin Lesions, No rash Neuro: No Weakness, No Numbness, No Headache Psych: No Anxiety/Panic, No Depression Heme/Lymph: No Bruising, No Lymphadenopathy Endocrine: No Polyuria, No Polydipsia Yes all other systems are reviewed and are negative [facility] Past Medical History Medical History Anxiety Ramos's palsy Cervical cancer Congestive heart failure DVT (deep venous thrombosis) GERD (gastroesophageal reflux disease) Hydronephrosis Hypercholesterolemia Hypertension Lumbar degenerative disc disease Osteoarthritis Paroxysmal atrial fibrillation Peripheral vascular disease Vitamin D deficiency Family History Family History Father Hypertension Stroke CVD (cardiovascular disease) Mother Hypoglycemia Surgical History Surgical History H/O elbow surgery History of bladder surgery History of cholecystectomy Social History Social History Alcohol intake: never Smoking Status: Never smoker Smoked in Last 30 Days: No Second Hand Smoke Exposure: No Use of substances other than those prescribed or required for medical reasons: No Advance Directives: No service: No Current occupational status: disabled Meds Allergies Allergy/AdvReac Type Severity Reaction Status Date / Time amlodipine [From NORVASC] Allergy Intermediate HIVES Verified 03/14/20 13:33 aspirin [ASA] Allergy Intermediate HIVES Verified 03/14/20 13:33 robert [ROBERT] Allergy Intermediate HIVES Verified 01/28/20 19:23 hydrochlorothiazide Allergy Unknown Hives Verified 03/14/20 13:33 gabapentin AdvReac Unknown dizziness Verified 03/14/20 13:33 lisinopril AdvReac Unknown Cough Verified 03/14/20 13:33 Home Medications Medication Instructions Recorded Confirmed Type alprazolam 0.5 mg PO BID PRN 01/26/20 05/19/20 History furosemide 20 mg tablet 20 mg PO .twice weekly tab 03/15/20 05/19/20 History Physical Exam Vital Signs: Last Vital Signs Temp 98.4 F 05/20/20 11:47 Pulse 92 05/20/20 11:47 Resp 19 05/20/20 11:47 BP 112/70 05/20/20 11:47 Pulse Ox 100 05/20/20 11:47 Body Mass Index 24.8 Const General: cooperative and no acute distress Orientation/consciousness: patient oriented x3 Eyes General: appearance normal, both eyes and all related structures Resp Effort & Inspection: normal respiratory effort and able to speak in complete sentences Cardio Rate: regular rate Rhythm: regular rhythm GI Palpation (GI): Soft to palpation Auscultation: normal bowel sounds Other: Suprapubic tenderness, no CVA tenderness bilaterally Skin General skin exam: no rashes or lesions noted Neuro General: patient oriented x3 Cognition (Neuro): normal cognition Extrem General: Yes normal to inspection and Yes no pedal edema Results Lab Results Result Diagrams: 05/20/20 04:45 05/20/20 04:34 Lab results: Chemistry 05/19/20 05/20/20 20:36 04:34 Sodium 135 137 Potassium 5.2 H 5.4 H Carbon Dioxide 18 L 14 L BUN 116 H* D 107 H* Creatinine 7.17 H* 6.44 H* Calcium 8.2 L 7.7 L D Hematology 05/19/20 05/20/20 20:36 04:45 WBC 9.9 8.7 Hgb 10.9 L 10.6 L Plt Count 478 H D 438 H Urinalysis 05/19/20 21:10 Urine Color YELLOW Urine Appearance CLOUDY Urine pH 8.5 H Ur Specific [place] 1.015 Urine Protein 3+ H Urine Glucose (UA) NEG Urine Ketones NEG Urine Blood 3+ H Urine Nitrite NEG Ur Leukocyte Esterase 3+ H Urine RBC 5-9 H Urine WBC 76-150 H Ur Squamous Epith Cells TRACE Assessment and Plan (1) JOVON (acute kidney injury): Status: Acute (2) Paroxysmal atrial fibrillation: Problem details: October 2019 echo normal left ventricular function moderate mitral stenosis dilated left atrium patent foramen ovale December 2019 EF 35% with global hypokinesis cardioversion done Status: Acute (3) Hematuria: Qualifiers: Hematuria type: unspecified type Qualified Code(s): R31.9 - Hematuria, unspecified Status: Acute (4) Urinary tract infection: Qualifiers: Hematuria presence: with hematuria Urinary tract infection type: acute cystitis Qualified Code(s): N30.01 - Acute cystitis with hematuria Status: Acute This is an 85-year-old female with past medical history of hydronephrosis status post bilateral stent placement, who presents to the hospital with abdominal pain found to have UTI as well as JOVON. 1. JOVON: msot c/w OBs with some occlussion of stens either internally or external compression to account for marjorie [place] and JOVON; other potential contrbutors can be infection/dehydration but these are likely not the main culprit 2. 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 Pyuria: UTI and cocnern for Obspyleo 4. HyperK and decr HCO3 : d/t JOVON 5. Cervical Ca: ? details 6: Obs Uropathy: presumaly d/t cervical cancer but retropertinela fibrosis/LN extrsinc compression etc.. most likely; but bladder invovlement wth internal occlussion a possibility REC: needs url eval and intervention with cysto/retrograde ans possible stent replacement and depending on their result she may need PCN tubes; no abs indicatin for HD at this tie and hope toavoid this becoming an issue...duaghter 9 Alina) the HPxy is not sure she would want HD..even short term change iVF to NaHCO3; hold eliquis; track UOP/renal func will follow clsoely with team
--- NOTE | 2020-05-20 15:29 | HO.PM.IMPN ---
Subjective Subjective Date of Service: 05/20/20 Interval History: Seen in f/u for JOVON, marjorie hydronephrosis and hyperkalemia Review of Systems doesn't feel well no dizziness no chest pain Physical Exam Vital Signs: Vital Signs: Last Vital Signs Temp 98.4 F 05/20/20 11:47 Pulse 98 05/20/20 14:21 Resp 16 05/20/20 14:21 BP 119/73 05/20/20 14:21 Pulse Ox 97 05/20/20 14:21 Body Mass Index 24.8 Const: General: cooperative and no acute distress Orientation/consciousness: patient oriented x3 Eyes: General: appearance normal, both eyes and all related structures Resp: Effort & Inspection: normal respiratory effort and able to speak in complete sentences Cardio: Rate: regular rate Rhythm: regular rhythm GI: Palpation (GI): Soft to palpation Auscultation: normal bowel sounds : Other: Suprapubic tenderness, no CVA tenderness bilaterally Skin: General skin exam: no rashes or lesions noted Neuro: General: patient oriented x3 Cognition (Neuro): normal cognition Extrem: General: Yes normal to inspection and Yes no pedal edema Objective Data Current Medications Generic Name Dose Route Start Last Admin Trade Name Freq PRN Reason Stop Dose Admin Acetaminophen 650 mg 05/19/20 23:26 Acetaminophen 325 Mg Tablet PO Q6H PRN Pain, Mild (Pain Scale 1-3) Alprazolam 0.5 mg 05/19/20 23:26 Alprazolam 0.5 Mg Tablet PO BID PRN Anxiety Amiodarone HCl 200 mg 05/20/20 09:00 05/20/20 09:22 Amiodarone Hcl 200 Mg Tablet PO 200 mg DAILY ROBBIE Administration Apixaban 2.5 mg 05/20/20 09:00 05/20/20 09:22 Apixaban 2.5 Mg Tablet PO 2.5 mg BID ROBBIE Administration Docusate Sodium 100 mg 05/19/20 23:26 Docusate Sodium 100 Mg Capsule PO DAILY PRN Constipation Ceftriaxone Sodium 1 gm/ 50 mls @ 100 mls/hr 05/19/20 23:30 05/19/20 23:56 Sodium Chloride IV Not Given Q24H ROBBIE Metronidazole 500 mg in 100 mls @ 100 mls/hr 05/20/20 06:00 05/20/20 15:18 Flagyl IV Infused Q8H ROBBIE Infusion Sodium Bicarbonate 100 meq/ 1,000 mls @ 100 mls/hr 05/20/20 12:00 05/20/20 12:24 Dextrose IV 05/20/20 21:59 100 mls/hr .Q10H ROBBIE Administration Levothyroxine Sodium 50 mcg 05/20/20 06:30 05/20/20 06:02 Levothyroxine Sodium 50 Mcg Tablet PO 50 mcg DAILY@0630 ROBBIE Administration Metoprolol Tartrate 50 mg 05/20/20 09:00 05/20/20 09:22 Metoprolol Tartrate 50 Mg Tablet PO 50 mg BID [facility] Administration Protocol Mirtazapine 7.5 mg 05/20/20 21:00 Mirtazapine 7.5 Mg Tablet PO BEDTIME [facility] Ondansetron HCl 4 mg 05/19/20 23:26 Ondansetron Hcl 4 Mg/2 Ml Vial IVPUSH Q8H PRN Nausea and Vomiting Sodium Chloride 3 ml 05/20/20 00:00 05/20/20 08:22 0.9 % Sodium Chloride Flush 3 Ml Syringe IVFLUSH 3 ml QSHIFT [facility] Administration Labs CBC & Chem 7: 05/20/20 04:45 05/20/20 04:34 Microbiology Microbiology Results: Microbiology 05/19/20 21:00 Urine clean catch - Clean Catch Midstream Urine Culture - Final Assessment and Plan (1) JOVON (acute kidney injury): Status: Acute (2) Paroxysmal atrial fibrillation: Problem details: October 2019 echo normal left ventricular function moderate mitral stenosis dilated left atrium patent foramen ovale December 2019 EF 35% with global hypokinesis cardioversion done Status: Acute (3) Hematuria: Status: Acute (4) Urinary tract infection: Status: Acute Assessment and Plan: 85-year-old Belizean-speaking female istory of anxiety, Ramos's palsy, cervical cancer, CHF, DVT, GERD, hydronephrosis s/p bilateral uretera stents at [facility] 18 months agao, HTN, hypercholesterolemia, paroxysmal AFib on anticoagulant who presents to the hospital with failure to thrive and not feeling well and is found to have JOVON on CKD, hyperkalemia, and bilateral hydronephrosis. # JOVON--likely from obstructive uropathy. Hydrated, change to IVF to D5W with bicab -Nephrology following -Urology will replace stents in AM #Metabolic Acidosis d/t renal failure--Bicab # UTI--spesis, no evidence of systemic infection or stent infection, there is no sepsis # abdominal pain--no pain at the moment - secondary to colitis - Continue Flagyl, as well as ceftriaxone for above # Paroxysmal AFib--Hold Apixiban for procedure. Continue metoprolol and Amio # CHF-appear Euvolumic, hold diuretics - does not appear to be in acute exacerbation ( Daughter Alina [phone] who is also her HPxy) DVT Prophylaxis: device and hold Apixiban
--- NOTE | 2020-05-20 16:52 | PC.NURSE ---
Dr Jeffers in to see pt. Pt bladder scanned for 60mls, per his request.
[2020-05-20 17:19] LABS: Creatinine Clr Calc Pharmacy 5.1; Estimated Glomerular Filt Rate 6
[2020-05-20 17:21] LABS: Anion Gap 18 (12-20); Calcium 7.8 mg/dL (8.4-10.2); Carbon Dioxide 19 mmol/L (22-29); Chloride 106 mmol/L (96-108); Glucose Random 126 mg/dL (60-115); Sodium 138 mmol/L (135-145)
[2020-05-20 17:26] LABS: Blood Urea Nitrogen 105 mg/dL (9-16)
--- NOTE | 2020-05-20 17:50 | MHC.SHP ---
Pre-Procedural Eval Section A The patient is an INPATIENT: Yes Section B Chief Complaint: UTI, JOVON Details of Present Illness: Patient with bilateral hydronephrosis with bilateral ureteral stents study being changed on a regular basis by another urologist. Patient's history of cervical cancer. Currently plan removal replacement of bilateral ureteral stents risks benefits potential complications morbidity mortality reviewed all questions answered Relevant Family History (Specify if Yes): No Relevant Social History: None Present Medications: None Medical History: Significant History (Cervical cancer and history of having ureteral stents removed and replaced) History of Previous Operations: No relevant previous surgery (Previous cystoscopy with removal replacement of bilateral ureteral stents) Allergies: Allergies Allergy/AdvReac Type Severity Reaction Status Date / Time amlodipine [From NORVASC] Allergy Intermediate HIVES Verified 03/14/20 13:33 aspirin [ASA] Allergy Intermediate HIVES Verified 03/14/20 13:33 robert [ROBERT] Allergy Intermediate HIVES Verified 01/28/20 19:23 hydrochlorothiazide Allergy Unknown Hives Verified 03/14/20 13:33 gabapentin AdvReac Unknown dizziness Verified 03/14/20 13:33 lisinopril AdvReac Unknown Cough Verified 03/14/20 13:33 Review of Systems Sugical H&P ROS: Negative: Constitution, Cardiovascular, Respiratory, Neurological, Psychiatric, Hem-Onc, Allergic/Immunologic, Gastrointestinal, Genitourinary, Musculoskeletal, Integumentary, Endocrine and Eyes/Ears/Nose/Throat Exam Surgical H&P Exam: Normal: HEENT, Normal: Heart, Normal: Lungs, Normal: Extremities, Normal: Abdomen, Normal: Skin and Normal: Neurological Plan Diagnosis/Plan: Unchanged (Plan cystoscopy removal replacement of bilateral ureteral stents) I have reviewed the history and physical and performed a pertinent physical examination on my patient. No changes have occurred unless specified.
[2020-05-20] MEDS: cefTRIAXone sodium 1 GM in 0.9 % Sodium Chloride 50 ML IV (23:39)
[2020-05-21] VITALS (12 sets, daily range): BP systolic 90–134; BP diastolic 54–90; PULSE 78–118; RESP 15–20; TEMP 36–36.7; O2SAT 94–99
[2020-05-21] MEDS: metroNIDAZOLE/NS 500 MG/100 ML PIGGYBACK 100 MG IV ×3 (05:12→21:35)
[2020-05-21] MEDS: Levothyroxine Sodium 50 MCG TABLET PO (05:12)
[2020-05-21 06:16] LABS: Blood Urea Nitrogen 97 mg/dL (9-16)
[2020-05-21 06:17] LABS: Anion Gap 19 (12-20); Calcium 7.4 mg/dL (8.4-10.2); Carbon Dioxide 17 mmol/L (22-29); Chloride 106 mmol/L (96-108); Creatinine Clr Calc Pharmacy 5.4; Estimated Glomerular Filt Rate 7; Glucose Random 87 mg/dL (60-115); Potassium 4.9 mmol/l (3.3-5.1); Sodium 137 mmol/L (135-145)
[2020-05-21] MEDS: 0.9 % Sodium Chloride Flush 3 ML SYRINGE IVFLUSH ×2 (08:03→23:38)
--- NOTE | 2020-05-21 08:15 | HO.PM.IMPN ---
Subjective Subjective Date of Service: 05/21/20 Interval History: Seen in f/u for JOVON, marjorie hydronephrosis and hyperkalemia. She feels better this morning and aware there is surgery to be done and has no question or concerns at this time Review of Systems Gen: no fever Resp: no sob, no cough CV: no chest, no SOARES, no leg edema GI: No n/v, no abd pain Neuro: No confusion Physical Exam Vital Signs: Vital Signs: Last Vital Signs Temp 98.1 F 05/21/20 03:45 Pulse 118 H 05/21/20 03:45 Resp 15 05/21/20 03:45 BP 118/72 05/21/20 03:45 Pulse Ox 96 05/21/20 03:45 Body Mass Index 24.8 Const: General: cooperative and no acute distress Orientation/consciousness: patient oriented x3 Eyes: General: appearance normal, both eyes and all related structures Resp: Effort & Inspection: normal respiratory effort and able to speak in complete sentences Cardio: Rate: regular rate Rhythm: regular rhythm GI: Palpation (GI): Soft to palpation Auscultation: normal bowel sounds : Other: no more suprapubic tenderness, no CVA tenderness bilaterally Skin: General skin exam: no rashes or lesions noted Neuro: General: patient oriented x3 Cognition (Neuro): normal cognition Extrem: General: Yes normal to inspection and Yes no pedal edema Objective Data Current Medications Generic Name Dose Route Start Last Admin Trade Name Freq PRN Reason Stop Dose Admin Acetaminophen 650 mg 05/19/20 23:26 Acetaminophen 325 Mg Tablet PO Q6H PRN Pain, Mild (Pain Scale 1-3) Alprazolam 0.5 mg 05/19/20 23:26 Alprazolam 0.5 Mg Tablet PO BID PRN Anxiety Amiodarone HCl 200 mg 05/20/20 09:00 05/20/20 09:22 Amiodarone Hcl 200 Mg Tablet PO 200 mg DAILY ROBBIE Administration Docusate Sodium 100 mg 05/19/20 23:26 Docusate Sodium 100 Mg Capsule PO DAILY PRN Constipation Ceftriaxone Sodium 1 gm/ 50 mls @ 100 mls/hr 05/19/20 23:30 05/21/20 00:24 Sodium Chloride IV Infused Q24H ROBBIE Infusion Metronidazole 500 mg in 100 mls @ 100 mls/hr 05/20/20 06:00 05/21/20 06:22 Flagyl IV Infused Q8H [facility] Infusion Levothyroxine Sodium 50 mcg 05/20/20 06:30 05/21/20 05:12 Levothyroxine Sodium 50 Mcg Tablet PO 50 mcg DAILY@0630 [facility] Administration Metoprolol Tartrate 50 mg 05/20/20 09:00 05/20/20 23:40 Metoprolol Tartrate 50 Mg Tablet PO Not Given BID [facility] Protocol Mirtazapine 7.5 mg 05/20/20 21:00 05/20/20 23:40 Mirtazapine 7.5 Mg Tablet PO Not Given BEDTIME [facility] Ondansetron HCl 4 mg 05/19/20 23:26 Ondansetron Hcl 4 Mg/2 Ml Vial IVPUSH Q8H PRN Nausea and Vomiting Sodium Chloride 3 ml 05/20/20 00:00 05/21/20 08:03 0.9 % Sodium Chloride Flush 3 Ml Syringe IVFLUSH 3 ml QSHIFT [facility] Administration Labs CBC & Chem 7: 05/20/20 04:45 05/21/20 04:34 Microbiology Microbiology Results: Microbiology 05/19/20 20:36 Blood - Venous Blood Culture - Preliminary 05/19/20 20:35 Blood - Venous Blood Culture - Preliminary No growth after 24 hours. 05/19/20 21:00 Urine clean catch - Clean Catch Midstream Urine Culture - Final Assessment and Plan (1) JOVON (acute kidney injury): Status: Acute (2) Paroxysmal atrial fibrillation: Problem details: October 2019 echo normal left ventricular function moderate mitral stenosis dilated left atrium patent foramen ovale December 2019 EF 35% with global hypokinesis cardioversion done Status: Acute (3) Hematuria: Status: Acute (4) Urinary tract infection: Status: Acute Assessment and Plan: 85-year-old Macedonian-speaking female istory of anxiety, Ramos's palsy, cervical cancer, CHF, DVT, GERD, hydronephrosis s/p bilateral uretera stents at [facility] 18 months ago, and intermittently changed, HTN, hypercholesterolemia, paroxysmal AFib on anticoagulant who presents to the hospital with failure to thrive and not feeling well and is found to have JOVON on CKD, hyperkalemia, and bilateral hydronephrosis. # JOVON--likely from obstructive uropathy. Slightly better, Cr 7.17(05/19)--> 5.88 (05/21) -Nephrology following -Urology to replace stents toda, NPO #Metabolic Acidosis d/t renal failure--Improved with IVF with bicab, bicab no 17 up from 10 # UTI--No spesis, no evidence of systemic infection or stent infection. Culture negative -Continue Ceftriaxone D3 # abdominal pain-- CT shows bowel thickening c/w colitis. no pain at the moment - Continue Flagyl, as well as ceftriaxone for above # Paroxysmal AFib--Hold Apixiban for procedure. Continue metoprolol and Amio # CHF-appear Euvolumic, hold diuretics Daughter Alina [phone] is HCP DVT Prophylaxis: device and hold Apixiban
--- NOTE | 2020-05-21 08:33 | MHC.CM.PN ---
Received telephone call from patient's daughter Alina. Alina is concerned patient is still in the ER and doesn't have a bed. She is hoping patient gets a room so she can visit with her. T/W explained there is still no visitation allowed in the hospital. This was verified with Marie, nursing auditor supervisor. Patient is scheduled to go to the OR at 9am for urinary stents. If there is a bed available, patient will go to the floor. Otherwise she will return to the ER. This was explained to Alina. Alina verbalized understanding. Continue to monitor for d/c needs.
--- NOTE | 2020-05-21 08:50 | PC.NURSE ---
report given to short stay surgery. plan to medicate and bring to surgery
[2020-05-21] MEDS: Metoprolol Tartrate 50 MG TABLET PO (09:04)
[2020-05-21] MEDS: Amiodarone HCL 200 MG TABLET PO (09:04)
--- NOTE | 2020-05-21 09:06 | PC.NURSE ---
pt to surgery at this time. all jewlery removed besides rings and placed in belongings. sss here to transport pt.
--- NOTE | 2020-05-21 09:10 | P.HPSUR_ITS ---
Pre-Procedural Eval Section A The patient is an INPATIENT: Yes The History & Physical has been completed within 30 days and I have reviewed it.: Yes Section B Chief Complaint: UTI, JOVON Allergies: Allergies Allergy/AdvReac Type Severity Reaction Status Date / Time amlodipine [From [facility]] Allergy Intermediate HIVES Verified 03/14/20 13:33 aspirin [ASA] Allergy Intermediate HIVES Verified 03/14/20 13:33 robert [ROBERT] Allergy Intermediate HIVES Verified 01/28/20 19:23 hydrochlorothiazide Allergy Unknown Hives Verified 03/14/20 13:33 gabapentin AdvReac Unknown dizziness Verified 03/14/20 13:33 lisinopril AdvReac Unknown Cough Verified 03/14/20 13:33 Plan Diagnosis/Plan: Unchanged I have reviewed the history and physical and performed a pertinent physical examination on my patient. No changes have occurred unless specified.
--- NOTE | 2020-05-21 09:11 | PM.OP ---
Brief Operative Note Date of Service: 05/21/20 Pre-op diagnosis: Bilateral hydronephrosis with stents in place Post-op diagnosis: same Procedure: Cystoscopy with removal and replacement of bilateral double-J stents Implants: Bilateral 6 Bengali by 22 cm double-J stents Surgeon: Caden Jeffers III, MD Estimated blood loss (mL): 0 Pathology: none sent Condition: stable Disposition: other (Boarding in the emergency room)
--- NOTE | 2020-05-21 09:33 | HO.ANESPROP2 ---
FORMERLY [facility] Past Medical History Medical History Anxiety Ramos's palsy Cervical cancer Congestive heart failure DVT (deep venous thrombosis) GERD (gastroesophageal reflux disease) Hydronephrosis Hypercholesterolemia Hypertension Lumbar degenerative disc disease Osteoarthritis Paroxysmal atrial fibrillation Peripheral vascular disease Vitamin D deficiency Family History Family History Father Hypertension Stroke CVD (cardiovascular disease) Mother Hypoglycemia Surgical History Surgical History H/O elbow surgery History of bladder surgery History of cholecystectomy Social History Social History Alcohol intake: never Smoking Status: Never smoker Smoked in Last 30 Days: No Second Hand Smoke Exposure: No Use of substances other than those prescribed or required for medical reasons: No Advance Directives: No service: No Current occupational status: disabled Meds Allergies Allergy/AdvReac Type Severity Reaction Status Date / Time amlodipine [From [facility]] Allergy Intermediate HIVES Verified 03/14/20 13:33 aspirin [ASA] Allergy Intermediate HIVES Verified 03/14/20 13:33 robert [ROBERT] Allergy Intermediate HIVES Verified 01/28/20 19:23 hydrochlorothiazide Allergy Unknown Hives Verified 03/14/20 13:33 gabapentin AdvReac Unknown dizziness Verified 03/14/20 13:33 lisinopril AdvReac Unknown Cough Verified 03/14/20 13:33 Home Medications Medication Instructions Recorded Confirmed Type alprazolam 0.5 mg PO BID PRN 01/26/20 05/19/20 History furosemide 20 mg tablet 20 mg PO .twice weekly tab 03/15/20 05/19/20 History Exam Exam Date and Time: May 21, 2020 0933 Height,Weight and Vital Signs: Height 4 ft 11 in Weight 55.8 kg Last Vital Signs Temp 98.1 F 05/21/20 03:45 Pulse 105 H 05/21/20 09:04 Resp 15 05/21/20 03:45 BP 120/59 L 05/21/20 09:04 Pulse Ox 96 05/21/20 03:45 Pertinent Lab Results Pertinent Lab Results: Laboratory Tests 05/19/20 05/19/20 05/19/20 20:36 20:36 20:36 WBC 9.9 RBC 3.74 L Hgb 10.9 L Hct 33.7 L MCV 90.1 MCH 29.1 MCHC 32.3 RDW 15.6 Plt Count 478 H D MPV 9.7 Immature Gran % (Auto) 0.6 H Neut % (Auto) 76.5 H Lymph % (Auto) 15.2 L [place] % (Auto) 7.2 Eos % (Auto) 0.4 Baso % (Auto) 0.1 Lymph # (Auto) 1.5 [place] # (Auto) 0.7 Eos # (Auto) 0.0 Baso # (Auto) 0.0 Abs Immat Gran (auto) 0.06 H Absolute Neuts (auto) 7.6 Absolute Nucleated RBC 0.000 Nucleated RBC % (auto) 0.0 PT 26.6 H INR 2.2 H APTT 38.7 H Sodium 135 Potassium 5.2 H Chloride 103 Carbon Dioxide 18 L Anion Gap 19 BUN 116 H* D Creatinine 7.17 H* Estim Creat Clear Calc 4.4 Estimated GFR 5 Random Glucose 123 H Lactic Acid Calcium 8.2 L Troponin I High Sens Urine Color Urine Appearance Urine pH Ur Specific [place] Urine Protein Urine Glucose (UA) Urine Ketones Urine Blood Urine Nitrite Ur Leukocyte Esterase Urine RBC Urine WBC Ur Squamous Epith Cells Urine Bacteria COVID-19 ([place]) COVID-19 Clin Com 05/19/20 05/19/20 05/19/20 20:36 20:36 21:10 WBC RBC Hgb Hct MCV MCH MCHC RDW Plt Count MPV Immature Gran % (Auto) Neut % (Auto) Lymph % (Auto) [place] % (Auto) Eos % (Auto) Baso % (Auto) Lymph # (Auto) [place] # (Auto) Eos # (Auto) Baso # (Auto) Abs Immat Gran (auto) Absolute Neuts (auto) Absolute Nucleated RBC Nucleated RBC % (auto) PT INR APTT Sodium Potassium Chloride Carbon Dioxide Anion Gap BUN Creatinine Estim Creat Clear Calc Estimated GFR Random Glucose Lactic Acid 1.3 Calcium Troponin I High Sens 12.5 Urine Color YELLOW Urine Appearance CLOUDY Urine pH 8.5 H Ur Specific [place] 1.015 Urine Protein 3+ H Urine Glucose (UA) NEG Urine Ketones NEG Urine Blood 3+ H Urine Nitrite NEG Ur Leukocyte Esterase 3+ H Urine RBC 5-9 H Urine WBC 76-150 H Ur Squamous Epith Cells TRACE Urine Bacteria 3+ COVID-19 ([place]) COVID-19 Clin Com 05/20/20 05/20/20 05/20/20 00:01 04:34 04:45 WBC 8.7 RBC 3.65 L Hgb 10.6 L Hct 33.3 L MCV 91.2 MCH 29.0 MCHC 31.8 RDW 15.9 Plt Count 438 H MPV 10.2 Immature Gran % (Auto) 0.5 H Neut % (Auto) 75.3 H Lymph % (Auto) 17.8 L [place] % (Auto) 5.8 Eos % (Auto) 0.5 Baso % (Auto) 0.1 Lymph # (Auto) 1.6 [place] # (Auto) 0.5 Eos # (Auto) 0.0 Baso # (Auto) 0.0 Abs Immat Gran (auto) 0.04 H Absolute Neuts (auto) 6.6 Absolute Nucleated RBC 0.000 Nucleated RBC % (auto) 0.0 PT INR APTT Sodium 137 Potassium 5.4 H Chloride 107 Carbon Dioxide 14 L Anion Gap 21 H BUN 107 H* Creatinine 6.44 H* Estim Creat Clear Calc 4.9 Estimated GFR 6 Random Glucose 90 Lactic Acid Calcium 7.7 L D Troponin I High Sens Urine Color Urine Appearance Urine pH Ur Specific [place] Urine Protein Urine Glucose (UA) Urine Ketones Urine Blood Urine Nitrite Ur Leukocyte Esterase Urine RBC Urine WBC Ur Squamous Epith Cells Urine Bacteria COVID-19 ([place]) Negative COVID-19 Clin Com See Note 05/20/20 05/21/20 16:38 04:34 WBC RBC Hgb Hct MCV MCH MCHC RDW Plt Count MPV Immature Gran % (Auto) Neut % (Auto) Lymph % (Auto) [place] % (Auto) Eos % (Auto) Baso % (Auto) Lymph # (Auto) [place] # (Auto) Eos # (Auto) Baso # (Auto) Abs Immat Gran (auto) Absolute Neuts (auto) Absolute Nucleated RBC Nucleated RBC % (auto) PT INR APTT Sodium 138 137 Potassium 5.0 4.9 Chloride 106 106 Carbon Dioxide 19 L 17 L Anion Gap 18 19 BUN 105 H* 97 H* Creatinine 6.25 H* 5.88 H* Estim Creat Clear Calc 5.1 5.4 Estimated GFR 6 7 Random Glucose 126 H D 87 Lactic Acid Calcium 7.8 L 7.4 L Troponin I High Sens Urine Color Urine Appearance Urine pH Ur Specific [place] Urine Protein Urine Glucose (UA) Urine Ketones Urine Blood Urine Nitrite Ur Leukocyte Esterase Urine RBC Urine WBC Ur Squamous Epith Cells Urine Bacteria COVID-19 ([place]) COVID-19 Clin Com Airway Mallampati Class: II TM Dist: >3cm Neck ROM: Full Denture: Upper
[2020-05-21] MEDS: Acetaminophen 325 MG TABLET 650 MG PO (10:23)
--- NOTE | 2020-05-21 10:23 | PC.NURSE ---
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
--- NOTE | 2020-05-21 10:49 | PC.NURSE ---
pt just returned from surgery vss
--- NOTE | 2020-05-21 11:15 | PC.NURSE ---
family called and updated
[2020-05-21] MEDS: Lactated Ringers 1,000 ML 100 ML IVCONT (12:18)
--- NOTE | 2020-05-21 12:23 | PC.NURSE ---
called to med surg for report
--- NOTE | 2020-05-21 13:32 | PC.NURSE ---
report given to ana. pt still in room awaiting it to be cleaned
--- NOTE | 2020-05-21 15:56 | P.PNNP_ITS ---
Subjective Subjective Date of Service: 05/21/20 Interval history: seen and examined. events noted Physical Exam Vital Signs: Vital Signs: Last Vital Signs Temp 97.2 F 05/21/20 15:43 Pulse 95 05/21/20 15:43 Resp 16 05/21/20 15:43 BP 114/63 05/21/20 15:43 Pulse Ox 99 05/21/20 15:43 Body Mass Index 24.8 Const: General: cooperative and no acute distress Orie ntation/consciousness: patient oriented x3 Eyes: General: appearance normal, both eyes and all related structures Resp: Effort & Inspection: normal respiratory effort and able to speak in complete sentences Cardio: Rate: regular rate Rhythm: regular rhythm GI: Palpation (GI): Soft to palpation Auscultation: normal bowel sounds : Other: Suprapubic tenderness, no CVA tenderness bilaterally Skin: General skin exam: no rashes or lesions noted Neuro: General: patient oriented x3 Cognition (Neuro): normal cognition Extrem: General: Yes normal to inspection and Yes no pedal edema Objective Data Labs CBC & Chem 7: 05/20/20 04:45 05/21/20 04:34 Labs: Laboratory Results - last 24 hr 05/20/20 05/21/20 16:38 04:34 Sodium 138 137 Potassium 5.0 4.9 Chloride 106 106 Carbon Dioxide 19 L 17 L Anion Gap 18 19 BUN 105 H* 97 H* Creatinine 6.25 H* 5.88 H* Estim Creat Clear Calc 5.1 5.4 Estimated GFR 6 7 Random Glucose 126 H D 87 Calcium 7.8 L 7.4 L Microbiology Microbiology Results: Microbiology 05/19/20 20:36 Blood - Venous Blood Culture - Preliminary 05/19/20 20:35 Blood - Venous Blood Culture - Preliminary No growth after 24 hours. 05/19/20 21:00 Urine clean catch - Clean Catch Midstream Urine Culture - Final Assessment & Plan Assessment and plan (1) JOVON (acute kidney injury): Status: Acute Assessment and Plan: This is an 85-year-old female with past medical history of hydronephrosis status post bilateral stent placement, who presents to the hospital with abdominal pain found to have UTI as well as JOVON. 1. JOVON: SCr slight decr this am; still msot c/w OBs with some occlussion of stens either internally or external compression to account for marjorie [place] and JOVON; other potential contrbutors can be infection/dehydration but these are likely not the main culprit 2. 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 Pyuria: UTI and cocnern for Obspyleo 4. HyperK and decr HCO3 : d/t JOVON and K controlled 5. Cervical Ca: ? details 6: Obs Uropathy: presumaly d/t cervical cancer but retropertinela fibrosis/LN extrsinc compression etc.. most likely; but bladder invovlement wth internal occlussion a possibility REC: urol intervention today, ABx as noted; avoid NToxins will follow clsoely with team (2) Paroxysmal atrial fibrillation: Problem details: October 2019 echo normal left ventricular function moderate mitral stenosis dilated left atrium patent foramen ovale December 2019 EF 35% with global hypokinesis cardioversion done Status: Acute (3) Hematuria: Status: Acute (4) Urinary tract infection: Status: Acute Time Spent With Patient Time: Total time spent is greater than 50% in coordination of care (as documented) at patient's floor/unit and/or counseling patient:
--- NOTE | 2020-05-21 15:56 | MHC.CM.PN ---
PATIENT NOT YET ON UNIT. HCP (2) FOUND IN CHART. MOST UPDATED COPY TO BE PLACED IN CHART.
[2020-05-21] MEDS: ALPRAZolam 0.5 MG TABLET PO (21:12)
[2020-05-21] MEDS: Mirtazapine 7.5 MG TABLET PO (21:12)
[2020-05-21] MEDS: Amoxicillin/Potassium Clav 500 MG TABLET PO (21:12)
[2020-05-21] MEDS: cefTRIAXone sodium 1 GM in 0.9 % Sodium Chloride 50 ML IV (23:36)
[2020-05-22] VITALS (8 sets, daily range): BP systolic 91–126; BP diastolic 52–79; PULSE 86–106; RESP 16–19; TEMP 36–37; O2SAT 94–99
[2020-05-22] MEDS: metroNIDAZOLE/NS 500 MG/100 ML PIGGYBACK 100 MG IV ×3 (06:19→21:20)
[2020-05-22] MEDS: Levothyroxine Sodium 50 MCG TABLET PO (06:19)
[2020-05-22 06:47] LABS: Blood Urea Nitrogen 94 mg/dL (9-16)
[2020-05-22 06:48] LABS: Anion Gap 19 (12-20); Calcium 7.7 mg/dL (8.4-10.2); Carbon Dioxide 18 mmol/L (22-29); Chloride 108 mmol/L (96-108); Glucose Random 143 mg/dL (60-115); Potassium 4.6 mmol/l (3.3-5.1); Sodium 140 mmol/L (135-145)
[2020-05-22 06:52] LABS: Creatinine Clr Calc Pharmacy 6.2; Estimated Glomerular Filt Rate 8
[2020-05-22] MEDS: Furosemide 20 MG TABLET PO (08:17)
[2020-05-22] MEDS: 0.9 % Sodium Chloride Flush 3 ML SYRINGE IVFLUSH (08:17)
[2020-05-22] MEDS: Amiodarone HCL 200 MG TABLET PO (08:18)
[2020-05-22] MEDS: Amoxicillin/Potassium Clav 500 MG TABLET PO ×2 (08:18→20:22)
[2020-05-22] MEDS: Metoprolol Tartrate 50 MG TABLET PO ×2 (08:18→20:23)
--- NOTE | 2020-05-22 10:09 | P.PNNP_ITS ---
Subjective Subjective Date of Service: 05/22/20 Interval history: seen and examined. events noted Physical Exam Vital Signs: Vital Signs: Last Vital Signs Temp 97.1 F 05/22/20 08:00 Pulse 106 H 05/22/20 08:00 Resp 18 05/22/20 08:00 BP 102/63 05/22/20 08:00 Pulse Ox 94 05/22/20 09:39 Body Mass Index 24.8 Const: General: cooperative and no acute distress Orie ntation/consciousness: patient oriented x3 Eyes: General: appearance normal, both eyes and all related structures Resp: Effort & Inspection: normal respiratory effort and able to speak in complete sentences Cardio: Rate: regular rate Rhythm: regular rhythm GI: Palpation (GI): Soft to palpation Auscultation: normal bowel sounds : Other: Suprapubic tenderness, no CVA tenderness bilaterally Skin: General skin exam: no rashes or lesions noted Neuro: General: patient oriented x3 Cognition (Neuro): normal cognition Extrem: General: Yes normal to inspection and Yes no pedal edema Objective Data Labs CBC & Chem 7: 05/20/20 04:45 05/22/20 05:49 Labs: Laboratory Results - last 24 hr 05/22/20 05:49 Sodium 140 Potassium 4.6 Chloride 108 Carbon Dioxide 18 L Anion Gap 19 BUN 94 H* Creatinine 5.13 H* Estim Creat Clear Calc 6.2 Estimated GFR 8 Random Glucose 143 H D Calcium 7.7 L Microbiology Microbiology Results: Microbiology 05/19/20 20:36 Blood - Venous Blood Culture - Preliminary 05/19/20 20:35 Blood - Venous Blood Culture - Preliminary No growth after 48 hours. 05/19/20 21:00 Urine clean catch - Clean Catch Midstream Urine Culture - Final Assessment & Plan Assessment and plan (1) JOVON (acute kidney injury): Status: Acute Assessment and Plan: This is an 85-year-old female with past medical history of hydronephrosis status post bilateral stent placement, who presents to the hospital with abdominal pain found to have UTI as well as JOVON. 1. JOVON: SCr slight decr this am, s/p stent replacement but delayed renal recovery 2. 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 Pyuria: UTI and cocnern for Obspyleo 4. HyperK and decr HCO3 : d/t JOVON and K controlled 5. Cervical Ca: ? details 6: Obs Uropathy: presumaly d/t cervical cancer but retropertinela fibrosis/LN extrsinc compression etc.. most likely; but bladder invovlement wth internal occlussion a possibility REC: cont to track UOP/renal func; avoid NToxins, ABx as noted; avoid NToxins will follow clsoely with team (2) Paroxysmal atrial fibrillation: Status: Acute (3) Hematuria: Status: Acute (4) Urinary tract infection: Status: Acute Time Spent With Patient Time: Total time spent is greater than 50% in coordination of care (as documented) at patient's floor/unit and/or counseling patient:
--- NOTE | 2020-05-22 10:43 | P.CDIC_ITS ---
CDI Concurrent Query Service Date: 05/22/20 Documentation Clarification: Please clarify if you are treating a proba ble/suspected/likely or confirmed: Specifics: Chronic diastolic and/or systolic Congestive heart failure Acute on chronic diastolic and/or systolic Congestive heart failure Please specify if known Provider Response: Other Other Diagnosis: ch systolic chf PLEASE DO NOT DELETE/MODIFY EXISTING CONTENT Additional information is needed in order to code to the highest accuracy and appropriate Severity of Illness (SOI). Please clarify the information noted below in your progress notes and discharge summary. Risk Factors/Clinical Indicators/Treatments PMH CHF H&P: Echo 2019 : left ventricular function moderate mitral stenosis dilated left atrium patent foramen ovale December 2019 EF 35% PN: Assessment/plan: CHF - does not appear to be in acute exacerbation, hold diuretics, appears Euvolumic. CDS: Kimberly Cunningham CCS, CDIS Contact Number: [phone] Please Review the information above and exercise your independent professional judgment in responding to the query. If you concur, pleas document in the PROGRESS NOTES and DISCHARGE SUMMARY. If you do not agree with the query, please document in the query above. THIS QUERY IS PART OF THE PERMANENT MEDICAL RECORD
--- NOTE | 2020-05-22 12:23 | MHC.CM.PN ---
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
--- NOTE | 2020-05-22 12:55 | HO.POSTANES ---
Post Anesthesia Evaluation Post Anesthesia Evaluation Vital Signs: Vital Signs Temp Pulse Resp BP Pulse Ox 05/22/20 12:00 97.5 F 16 101/52 L 05/22/20 09:39 94 05/22/20 08:00 97.1 F 106 H 18 102/63 94 05/22/20 03:49 96.8 F 92 18 115/79 96 Anesthesia: General Mental Status: Awake Pain Control: Satisfactory Nausea/Vomiting: None Hydration: Adequate Anesthesia-Related Issues: No Anes. Related Issues
--- NOTE | 2020-05-22 13:01 | HO.PM.IMPN ---
Subjective Subjective Date of Service: 05/23/20 Interval History: jovon, blood cultures -gram postive cocci Review of Systems Patient denies any chest pain or shortness of breath or abdominal pain or fever or chills Physical Exam Vital Signs: Vital Signs: Last Vital Signs Temp 97.5 F 05/22/20 12:00 Pulse 106 H 05/22/20 08:00 Resp 16 05/22/20 12:00 BP 101/52 L 05/22/20 12:00 Pulse Ox 94 05/22/20 09:39 Body Mass Index 24.8 Physical exam: Constitutional: Not in acute distress Cvs: rrr, [id number] , no murmur res: clear to auscultation ,no rhonchii or wheezing abd: no rebound or guarding ,nt, bs present. ext pulses present , no cyanosis neuro: axo3 , nonfocal. Objective Data Current Medications Generic Name Dose Route Start Last Admin Trade Name Freq PRN Reason Stop Dose Admin Acetaminophen 650 mg 05/19/20 23:26 05/21/20 10:23 Acetaminophen 325 Mg Tablet PO 650 mg Q6H PRN Administration Pain, Mild (Pain Scale 1-3) Alprazolam 0.5 mg 05/19/20 23:26 05/21/20 21:12 Alprazolam 0.5 Mg Tablet PO 0.5 mg BID PRN Administration Anxiety Amiodarone HCl 200 mg 05/20/20 09:00 05/22/20 08:18 Amiodarone Hcl 200 Mg Tablet PO 200 mg DAILY ROBBIE Administration Amoxicillin/Clavulanate Potassium 500 mg 05/21/20 21:00 05/22/20 08:18 Amoxicillin/Potassium Clav 500 Mg Tablet PO 500 mg BID ROBBIE Administration Docusate Sodium 100 mg 05/19/20 23:26 Docusate Sodium 100 Mg Capsule PO DAILY PRN Constipation Fentanyl 25 mcg 05/21/20 09:45 Fentanyl Citrate/Pf 100 Mcg/2 Ml Vial IVPUSH Q5M PRN Pain, Moderate (Pain Scale 4-6 Furosemide 20 mg 05/22/20 08:00 05/22/20 08:17 Furosemide 20 Mg Tablet PO 20 mg Mo@0800 ROBBIE Administration Protocol Ceftriaxone Sodium 1 gm/ 50 mls @ 100 mls/hr 05/19/20 23:30 05/22/20 00:15 Sodium Chloride IV Infused Q24H ROBBIE Infusion Metronidazole 500 mg in 100 mls @ 100 mls/hr 05/20/20 06:00 05/22/20 07:19 Flagyl IV Infused Q8H ROBBIE Infusion Levothyroxine Sodium 50 mcg 05/20/20 06:30 05/22/20 06:19 Levothyroxine Sodium 50 Mcg Tablet PO 50 mcg DAILY@0630 ROBBIE Administration Metoprolol Tartrate 50 mg 05/20/20 09:00 05/22/20 08:18 Metoprolol Tartrate 50 Mg Tablet PO 50 mg BID ROBBIE Administration Protocol Mirtazapine 7.5 mg 05/20/20 21:00 05/21/20 21:12 Mirtazapine 7.5 Mg Tablet PO 7.5 mg BEDTIME ROBBIE Administration Ondansetron HCl 4 mg 05/19/20 23:26 Ondansetron Hcl 4 Mg/2 Ml Vial IVPUSH Q8H PRN Nausea and Vomiting Ondansetron HCl 4 mg 05/21/20 09:45 Ondansetron Hcl 4 Mg/2 Ml Vial IVPUSH ONCE PRN Nausea and Vomiting Sodium Chloride 3 ml 05/20/20 00:00 05/22/20 08:17 0.9 % Sodium Chloride Flush 3 Ml Syringe IVFLUSH 3 ml QSHIFT ROBBIE Administration Labs CBC & Chem 7: 05/23/20 05:50 05/23/20 05:50 Microbiology Microbiology Results: Microbiology 05/19/20 20:36 Blood - Venous Blood Culture - Preliminary 05/19/20 20:35 Blood - Venous Blood Culture - Preliminary No growth after 48 hours. 05/19/20 21:00 Urine clean catch - Clean Catch Midstream Urine Culture - Final Assessment and Plan (1) JOVON (acute kidney injury): Status: Acute (2) Paroxysmal atrial fibrillation: Status: Acute (3) Hematuria: Status: Acute (4) Urinary tract infection: Problem details: She appears to have bacteremia from possible enterococcus urine Results are pending She has seen Urology There are no clinical signs of proctitis with no rectal pain or swelling Status: Acute Assessment and Plan: 85-year-old [place]egalese-speaking female istory of anxiety, Ramos's palsy, cervical cancer, CHF, DVT, GERD, hydronephrosis s/p bilateral uretera stents at [facility] 18 months ago, and intermittently changed, HTN, hypercholesterolemia, paroxysmal AFib on anticoagulant who presents to the hospital with failure to thrive and not feeling well and is found to have JOVON on CKD, hyperkalemia, and bilateral hydronephrosis. 1. JOVON--thought to be likely from obstructive uropathy. Slightly better, Cr 7.17(05/19)--> 5.13 (05/21) Urology to replace stents yesterday, hold lasix Creatinine was running between 1.7-2 range over the last year. moniter bmp 2.Metabolic Acidosis d/t renal failure--Improved with IVF with bicab, bicab no 18 up from 10 3.UTI--No spesis, no evidence of systemic infection or stent infection. Culture negative switched 4.abdominal pain-- CT shows bowel thickening c/w colitis. no pain at the moment Continue Flagyl/augmentin (dc ceftriaxone since already on augmentin) for above. bactermia -gram positive bacteremia : id eval added will check with ID. 5. Paroxysmal AFib-? Apixiban cannot be used with advanced jovon. Continue metoprolol and Amio. 6. CHF-probbale systolic :appear Euvolumic, hold diuretics updated Daughter Alina [phone] is HCP DVT Prophylaxis: device and hold Apixiban
--- NOTE | 2020-05-22 14:11 | OP_ITS ---
SURGEON: Caden Jeffers III, MD PREOPERATIVE DIAGNOSIS: Bilateral hydronephrosis with indwelling double-J stent. POSTOPERATIVE DIAGNOSIS: PROCEDURE PERFORMED: Cystoscopy, removal of bilateral double-J stents with replacement of bilateral double-J stents. ESTIMATED BLOOD LOSS: None. COMPLICATIONS: None. ANESTHESIA: General. ASSISTANTS: SPECIMENS: POSTOPERATIVE DIAGNOSES: Bilateral hydronephrosis with indwelling double-J stent. DESCRIPTION OF PROCEDURE: The patient was taken to the operating room. After adequate anesthesia was obtained, a time-out was done demonstrating correct patient and correct procedure. Following this the patient underwent cystoscopy, the patient had bilateral ureteral multi-length stents in place. The left was grabbed and removed, brought to the meatus, able to run the wire up it without any difficulty and replace the double-J stent over the same wire and found to be in good position both fluoroscopy and cystoscopy. The patient then had the right stent grasped removed through the meatus, but was unable to be cannulate it completely with the stent that was obstructed. Therefore, the stent and wire removed. The stent was replaced into the ureter and had the double-J stent placed in good position by fluoroscopy and cystoscopy. The patient tolerated procedure with no complications. SPECIMEN: None. DRAINS: 6-[place] x 22 cm bilateral double-J stents. MD KIANNA Arcos III/MODL / [id number]
--- NOTE | 2020-05-22 17:10 | P.PNNP_ITS ---
Subjective Subjective Date of Service: 05/22/20 Interval history: jovon, blood cultures -gram postive cocci Physical Exam Vital Signs: Vital Signs: Last Vital Signs Temp 97.7 F 05/22/20 16:00 Pulse 100 05/22/20 16:00 Resp 19 05/22/20 16:00 BP 122/75 05/22/20 16:00 Pulse Ox 97 05/22/20 16:00 Body Mass Index 24.8 Const: General: cooperative and no acute distress Orientation/consciousness: patient oriented x3 Eyes: General: appearance normal, both eyes and all related structures Resp: Effort & Inspection: normal respiratory effort and able to speak in complete sentences Cardio: Rate: regular rate Rhythm: regular rhythm GI: Palpation (GI): Soft to palpation Auscultation: normal bowel sounds : Other: Suprapubic tenderness, no CVA tenderness bilaterally Skin: General skin exam: no rashes or lesions noted Neuro: General: patient oriented x3 Cognition (Neuro): normal cognition Extrem: General: Yes normal to inspection and Yes no pedal edema Objective Data Labs CBC & Chem 7: 05/20/20 04:45 05/22/20 05:49 Labs: Laboratory Results - last 24 hr 05/22/20 05:49 Sodium 140 Potassium 4.6 Chloride 108 Carbon Dioxide 18 L Anion Gap 19 BUN 94 H* Creatinine 5.13 H* Estim Creat Clear Calc 6.2 Estimated GFR 8 Random Glucose 143 H D Calcium 7.7 L Microbiology Microbiology Results: Microbiology 05/19/20 20:35 Blood - Venous Blood Culture - Preliminary 05/19/20 20:36 Blood - Venous Blood Culture - Preliminary 05/19/20 21:00 Urine clean catch - Clean Catch Midstream Urine Culture - Final Assessment & Plan Assessment and plan (1) JOVON (acute kidney injury): Status: Acute (2) Paroxysmal atrial fibrillation: Status: Acute (3) Hematuria: Status: Acute (4) Urinary tract infection: Status: Acute Assessment and Plan: 85-year-old Sinhala-speaking female istory of anxiety, Ramos's palsy, cervical cancer, CHF, DVT, GERD, hydronephrosis s/p bilateral uretera stents at [facility] 18 months ago, and intermittently changed, HTN, hypercholesterolemia, paroxysmal AFib on anticoagulant who presents to the hospital with failure to thrive and not feeling well and is found to have JOVON on CKD, hyperkalemia, and bilateral hydronephrosis. 1. JOVON--thought to be likely from obstructive uropathy. Slightly better, Cr 7.17(05/19)--> 5.13 (05/21) Urology to replace stents yesterday, hold lasix Creatinine was running between 1.7-2 range over the last year. moniter bmp 2.Metabolic Acidosis d/t renal failure--Improved with IVF with bicab, bicab no 18 up from 10 3.UTI--No spesis, no evidence of systemic infection or stent infection. Culture negative switched 4.abdominal pain-- CT shows bowel thickening c/w colitis. no pain at the moment Continue Flagyl/augmentin (dc ceftriaxone since already on augmentin) for above. bactermia -gram positive bacteremia : id eval added will check with ID. 5. Paroxysmal AFib-? Apixiban cannot be used with advanced jovon. Continue metoprolol and Amio. 6. CHF-probbale systolic :appear Euvolumic, hold diuretics Daughter Alina [phone] is HCP DVT Prophylaxis: device and hold Apixiban Time Spent With Patient Time: Total time spent is greater than 50% in coordination of care (as documented) at patient's floor/unit and/or counseling patient:
[2020-05-22] MEDS: Mirtazapine 7.5 MG TABLET PO (20:22)
[2020-05-22] MEDS: ALPRAZolam 0.5 MG TABLET PO (21:26)
[2020-05-23] MEDS: 0.9 % Sodium Chloride Flush 3 ML SYRINGE IVFLUSH ×4 (00:15→21:33)
[2020-05-23 03:52] VITALS: BP 106/61; PULSE 92; RESP 18; TEMP 36.6; O2SAT 100
[2020-05-23] MEDS: Levothyroxine Sodium 50 MCG TABLET PO (06:30)
[2020-05-23] MEDS: metroNIDAZOLE/NS 500 MG/100 ML PIGGYBACK 100 MG IV (06:30)
[2020-05-23 06:49] LABS: Hematocrit 27.6 % (37-47); Hemoglobin 8.7 g/dl (12.0-16.0)
[2020-05-23 06:53] LABS: Anion Gap 15 (12-20); Blood Urea Nitrogen 77 mg/dL (9-16); Calcium 7.4 mg/dL (8.4-10.2); Carbon Dioxide 20 mmol/L (22-29); Chloride 109 mmol/L (96-108); Creatinine Clr Calc Pharmacy 8.2; Estimated Glomerular Filt Rate 11; Glucose Random 96 mg/dL (60-115); Potassium 4.8 mmol/l (3.3-5.1); Sodium 139 mmol/L (135-145)
[2020-05-23 07:42] VITALS: BP 113/64; PULSE 97; RESP 16; TEMP 36.6; O2SAT 99
[2020-05-23] MEDS: Amiodarone HCL 200 MG TABLET PO (08:15)
[2020-05-23] MEDS: Amoxicillin/Potassium Clav 500 MG TABLET PO (08:15)
[2020-05-23] MEDS: Metoprolol Tartrate 50 MG TABLET PO (08:15)
[2020-05-23 09:11] LABS: Alanine Aminotransferase 19 U/L (0-31); Albumin Level 2.5 g/dL (3.5-5.0); Alkaline Phosphatase 54 U/L (39-117); Aspartate Amino Transferase 20 U/L (5-31); Bilirubin Direct < 0.2 mg/dL (0.0-0.5); Bilirubin Total 0.3 mg/dL (0.0-1.0); Iron 67 mcg/dL (30-160); Percent Iron Saturation 45 % (15-50); Total Iron Binding Capacity 150 mcg/dL (228-428); Total Protein 5.5 g/dL (6.5-8.0); Unsaturated Iron Binding 83 ug/dL
[2020-05-23 09:31] LABS: Ferritin 273 ng/mL (10-250)
[2020-05-23] MEDS: Omeprazole 20 MG CAPSULE.DR PO (10:06)
[2020-05-23 10:13] LABS: Vitamin B12 1171 pg/mL (200-900)
--- NOTE | 2020-05-23 11:06 | PM.PNNEP ---
Subjective Subjective Date of Service: 05/23/20 Principal diagnosis: JOVON Interval history: Seen and examined. Events noted OVerall feeling better Physical Exam Vital Signs: Vital Signs: Last Vital Signs Temp 97.8 F 05/23/20 07:42 Pulse 97 05/23/20 07:42 Resp 16 05/23/20 07:42 BP 113/64 05/23/20 07:42 Pulse Ox 99 05/23/20 07:42 Body Mass Index 24.8 Const: General: cooperative and no acute distress Orientation/consciousness: patient oriented x3 Eyes: General: appearance normal, both eyes and all related structures Resp: Effort & Inspection: normal respiratory effort and able to speak in complete sentences Cardio: Rate: regular rate Rhythm: regular rhythm GI: Palpation (GI): Soft to palpation Auscultation: normal bowel sounds Skin: General skin exam: no rashes or lesions noted Neuro: General: patient oriented x3 Cognition (Neuro): normal cognition Extrem: General: Yes normal to inspection and Yes no pedal edema Objective Data Labs CBC & Chem 7: 05/23/20 05:50 05/23/20 05:50 Labs: Laboratory Results - last 24 hr 05/23/20 05/23/20 05/23/20 05:50 05:50 05:50 Hgb 8.7 L Hct 27.6 L Sodium 139 Potassium 4.8 Chloride 109 H Carbon Dioxide 20 L Anion Gap 15 BUN 77 H Creatinine 3.89 H Estim Creat Clear Calc 8.2 Estimated GFR 11 Random Glucose 96 Calcium 7.4 L Iron 67 TIBC 150 L % Saturation 45 Unsat Iron Binding 83 Ferritin 273 H Total Bilirubin 0.3 Direct Bilirubin < 0.2 AST 20 ALT 19 Alkaline Phosphatase 54 Total Protein 5.5 L Albumin 2.5 L Vitamin B12 1171 H Folate 7.0 Microbiology Microbiology Results: Microbiology 05/19/20 20:35 Blood - Venous Blood Culture - Preliminary 05/19/20 20:36 Blood - Venous Blood Culture - Preliminary 05/19/20 21:00 Urine clean catch - Clean Catch Midstream Urine Culture - Final Assessment & Plan Assessment and plan (1) JOVON (acute kidney injury): Status: Acute Assessment and Plan: This is an 85-year-old female with past medical history of hydronephrosis status post bilateral stent placement, who presents to the hospital with abdominal pain found to have UTI as well as JOVON. 1. JOVON: SCr decr this am, s/p stent replacement 2. 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 Pyuria: UTI and cocnern for Obs pyleo 4. HyperK and decr HCO3 : d/t JOVON and K controlled 5. Cervical Ca: ? details 6: Obs Uropathy: presumaly d/t cervical cancer but retropertineal fibrosis/LN extrsinc compression etc.. most likely; but bladder invovlement wth internal occlussion a possibility REC: cont to track UOP/renal func; avoid NToxins, ABx as noted; avoid NToxins will follow clsoely with team (2) Paroxysmal atrial fibrillation: Status: Acute (3) Hematuria: Status: Acute (4) Urinary tract infection: Status: Acute Time Spent With Patient Time: Total time spent is greater than 50% in coordination of care (as documented) at patient's floor/unit and/or counseling patient:
[2020-05-23 12:00] VITALS: BP 127/75; PULSE 100; RESP 18; TEMP 36.4; O2SAT 94
--- NOTE | 2020-05-23 13:23 | W.PM.IDCN ---
History of Present Illness Data of Consult Service Date: 05/23/20 Requesting physician: Franco Carpenter Primary Care Provider: Renu Simon MD HPI Reason for consult: bacteremia She presents to hospital with weakness and myalgias and 2 days abdominal pain ,perineal and 4/10 discomfort She has no nausea or vomiting She feels similar to prior UTIs She has had enterococcus Review of Systems Review of Systems: Yes all other systems are reviewed and are negative [facility] Past Medical History Medical History (Updated 06/01/20 @ 09:43 by Patrice Pereira PA-C) Anxiety Ramos's palsy Cervical cancer Congestive heart failure DVT (deep venous thrombosis) GERD (gastroesophageal reflux disease) Hydronephrosis Hypercholesterolemia Hypertension Lumbar degenerative disc disease Osteoarthritis Paroxysmal atrial fibrillation Peripheral vascular disease Vitamin D deficiency Family History Family History Father Hypertension Stroke CVD (cardiovascular disease) Mother Hypoglycemia Family history: reviewed and not pertinent Surgical History Surgical History H/O elbow surgery History of bladder surgery History of cholecystectomy Social History Social History Household Members: None Housing: House Alcohol intake: never Smoking Status: Never smoker Second Hand Smoke Exposure: No service: No Current occupational status: disabled Meds Allergies Allergy/AdvReac Type Severity Reaction Status Date / Time amlodipine [From NORVASC] Allergy Intermediate HIVES Verified 03/14/20 13:33 aspirin [ASA] Allergy Intermediate HIVES Verified 03/14/20 13:33 robert [ROBERT] Allergy Intermediate HIVES Verified 01/28/20 19:23 hydrochlorothiazide Allergy Unknown Hives Verified 03/14/20 13:33 gabapentin AdvReac Unknown dizziness Verified 03/14/20 13:33 lisinopril AdvReac Unknown Cough Verified 03/14/20 13:33 Home Medications Medication Instructions Recorded Confirmed Type alprazolam 0.5 mg PO BID PRN 01/26/20 06/01/20 History furosemide 20 mg tablet 20 mg PO MO@0800 tab 03/15/20 06/01/20 History Physical Exam Vital Signs: Vital Signs: Last Vital Signs Temp 97.5 F 05/23/20 12:00 Pulse 100 05/23/20 12:00 Resp 18 05/23/20 12:00 BP 127/75 05/23/20 12:00 Pulse Ox 94 05/23/20 12:00 Body Mass Index 24.8 Const: General: cooperative Orientation/consciousness: patient oriented x3 HENMT: Head: Yes normal to inspection Mouth: Normal oral and palatal mucosa present Eyes: General: appearance normal, both eyes and all related structures Resp: Effort & Inspection: normal respiratory effort Cardio: Rate: regular rate Rhythm: regular rhythm GI: Palpation (GI): Soft to palpation and nontender : General: Yes no CVA tenderness Back/Spine/Pelvis: Back: no CVA tenderness Skin: General skin exam: no rashes or lesions noted Neuro: General: patient oriented x3 Extrem: General: Yes normal to inspection Assessment and Plan (1) JOVON (acute kidney injury): Status: Acute (2) Urinary tract infection: Qualifiers: Hematuria presence: with hematuria Urinary tract infection type: acute cystitis Qualified Code(s): N30.01 - Acute cystitis with hematuria Status: Acute Would give po Linezolid as concern over sensitivities at this time Await final cultures Stop Metronidazole as no signs at this time Results Labs CBC & Chem 7: 05/25/20 05:53 05/25/20 05:53 Labs: Short CBC 05/23/20 Range/Units 05:50 Hgb 8.7 L (12.0-16.0) g/dl Hct 27.6 L (37-47) % BMP 05/23/20 05:50 Sodium 139 Potassium 4.8 Chloride 109 H Carbon Dioxide 20 L BUN 77 H Creatinine 3.89 H Calcium 7.4 L Liver Function 05/23/20 Range/Units 05:50 Total Bilirubin 0.3 (0.0-1.0) mg/dL Direct Bilirubin < 0.2 (0.0-0.5) mg/dL AST 20 (5-31) U/L ALT 19 (0-31) U/L Alkaline Phosphatase 54 (39-117) U/L Albumin 2.5 L (3.5-5.0) g/dL Microbiology Microbiology Results: Microbiology 05/19/20 20:35 Blood - Venous Blood Culture - Preliminary 05/19/20 20:36 Blood - Venous Blood Culture - Preliminary 05/19/20 21:00 Urine clean catch - Clean Catch Midstream Urine Culture - Final
--- NOTE | 2020-05-23 13:37 | HO.PM.IMPN ---
Subjective Subjective Date of Service: 05/24/20 Interval History: JOVON, anemia Review of Systems Patient denies any chest pain shortness of breath or abdominal pain or fever or chills or weakness or numbness. Physical Exam Vital Signs: Vital Signs: Last Vital Signs Temp 97.5 F 05/23/20 12:00 Pulse 100 05/23/20 12:00 Resp 18 05/23/20 12:00 BP 127/75 05/23/20 12:00 Pulse Ox 94 05/23/20 12:00 Body Mass Index 24.8 Physical exam Constitutional: Not in acute distress HEENT: Eyes are anicteric, no discharge Neck supple Cvs: rrr, [id number] , no murmur res: clear to auscultation ,no rhonchii or wheezing abd: no rebound or guarding ,nt, bs present. ext pulses present , no cyanosis neuro: axo3 , nonfocal. Objective Data Current Medications Generic Name Dose Route Start Last Admin Trade Name Freq PRN Reason Stop Dose Admin Acetaminophen 650 mg 05/19/20 23:26 05/21/20 10:23 Acetaminophen 325 Mg Tablet PO 650 mg Q6H PRN Administration Pain, Mild (Pain Scale 1-3) Alprazolam 0.5 mg 05/19/20 23:26 05/22/20 21:26 Alprazolam 0.5 Mg Tablet PO 0.5 mg BID PRN Administration Anxiety Amiodarone HCl 200 mg 05/20/20 09:00 05/23/20 08:15 Amiodarone Hcl 200 Mg Tablet PO 200 mg DAILY ROBBIE Administration Docusate Sodium 100 mg 05/19/20 23:26 Docusate Sodium 100 Mg Capsule PO DAILY PRN Constipation Furosemide 20 mg 05/22/20 08:00 05/22/20 08:17 Furosemide 20 Mg Tablet PO 20 mg Mo@0800 ROBBIE Administration Protocol Levothyroxine Sodium 50 mcg 05/20/20 06:30 05/23/20 06:30 Levothyroxine Sodium 50 Mcg Tablet PO 50 mcg DAILY@0630 ROBBIE Administration Metoprolol Tartrate 50 mg 05/20/20 09:00 05/23/20 08:15 Metoprolol Tartrate 50 Mg Tablet PO 50 mg BID ROBBIE Administration Protocol Mirtazapine 7.5 mg 05/20/20 21:00 05/22/20 20:22 Mirtazapine 7.5 Mg Tablet PO 7.5 mg BEDTIME ROBBIE Administration Omeprazole 20 mg 05/23/20 08:30 05/23/20 10:06 Omeprazole 20 Mg Capsule. PO 20 mg DAILY@0630 ROBBIE Administration Ondansetron HCl 4 mg 05/19/20 23:26 Ondansetron Hcl 4 Mg/2 Ml Vial IVPUSH Q8H PRN Nausea and Vomiting Ondansetron HCl 4 mg 05/21/20 09:45 Ondansetron Hcl 4 Mg/2 Ml Vial IVPUSH ONCE PRN Nausea and Vomiting Sodium Chloride 3 ml 05/20/20 00:00 05/23/20 08:17 0.9 % Sodium Chloride Flush 3 Ml Syringe IVFLUSH 3 ml QSHIFT ROBBIE Administration Labs CBC & Chem 7: 05/24/20 08:25 05/24/20 08:25 Microbiology Microbiology Results: Microbiology 05/19/20 20:35 Blood - Venous Blood Culture - Preliminary 05/19/20 20:36 Blood - Venous Blood Culture - Preliminary 05/19/20 21:00 Urine clean catch - Clean Catch Midstream Urine Culture - Final Assessment and Plan (1) JOVON (acute kidney injury): Status: Acute (2) Bacteremia: Status: Acute (3) Paroxysmal atrial fibrillation: Status: Acute (4) Hematuria: Status: Acute (5) Urinary tract infection: Problem details: She appears to have bacteremia from possible enterococcus urine Results are pending She has seen Urology There are no clinical signs of proctitis with no rectal pain or swelling Status: Acute Assessment and Plan: 85-year-old Montserratian-speaking female istory of anxiety, Ramos's palsy, cervical cancer, CHF, DVT, GERD, hydronephrosis s/p bilateral uretera stents at [facility] 18 months ago, and intermittently changed, HTN, hypercholesterolemia, paroxysmal AFib on anticoagulant who presents to the hospital with failure to thrive and not feeling well and is found to have JOVON on CKD, hyperkalemia, and bilateral hydronephrosis. 1. JOVON--thought to be likely from obstructive uropathy. Slightly better, Cr 7.17(05/19)--> 5.13 (05/21) Urology to replace stents yesterday, hold lasix cr trending to rnge3.9 Creatinine was running between 1.7-2 range over the last year. moniter bmp 2.Metabolic Acidosis d/t renal failure--Improved with IVF with bicab, bicab no 18 up from 10 3.UTI--No spesis, no evidence of systemic infection or stent infection. Culture negative switched . bactermia -gram positive bacteremia ,d/w ID: continue agunmentin , sensitvities still pending. 4.abdominal pain-- CT shows bowel thickening c/w colitis. no pain at the moment Continue Flagyl/augmentin (dc ceftriaxone since already on augmentin) for above. 5. Paroxysmal AFib-? Apixiban cannot be used with advanced jovno-d/w her daughter risks and benefits -she wants to hold off AC for now. Continue metoprolol and Amio. 6. CHF-probbale systolic :appear Euvolumic, hold diuretics updated Daughter Alina [phone] is HCP DVT Prophylaxis: device and hold Apixiban
[2020-05-23 16:00] VITALS: BP 117/75; PULSE 99; RESP 17; TEMP 37.1; O2SAT 97
[2020-05-23] MEDS: Linezolid 600 MG TABLET PO (17:52)
[2020-05-23] MEDS: ALPRAZolam 0.5 MG TABLET PO (19:30)
[2020-05-23 20:00] VITALS: BP 126/69; PULSE 78; RESP 19; TEMP 36.4; O2SAT 96
[2020-05-23 21:33] VITALS: BP 92/56; PULSE 97
[2020-05-23] MEDS: Melatonin 3 MG TABLET PO (22:57)
[2020-05-24] VITALS (7 sets, daily range): BP systolic 95–135; BP diastolic 54–89; PULSE 68–99; RESP 17–20; TEMP 36.1–36.7; O2SAT 95–100
[2020-05-24] MEDS: Omeprazole 20 MG CAPSULE.DR PO (05:44)
[2020-05-24] MEDS: Levothyroxine Sodium 50 MCG TABLET PO (05:44)
[2020-05-24] MEDS: Linezolid 600 MG TABLET PO ×2 (05:44→21:51)
[2020-05-24] MEDS: Metoprolol Tartrate 50 MG TABLET PO (07:46)
[2020-05-24] MEDS: 0.9 % Sodium Chloride Flush 3 ML SYRINGE IVFLUSH ×2 (07:46→18:54)
[2020-05-24] MEDS: Amiodarone HCL 200 MG TABLET PO (07:46)
[2020-05-24 08:47] LABS: Hemoglobin 9.7 g/dl (12.0-16.0)
[2020-05-24 09:13] LABS: Anion Gap 13 (12-20); Blood Urea Nitrogen 63 mg/dL (9-16); Calcium 7.6 mg/dL (8.4-10.2); Carbon Dioxide 22 mmol/L (22-29); Chloride 107 mmol/L (96-108); Creatinine Clr Calc Pharmacy 9.3; Estimated Glomerular Filt Rate 13; Glucose Random 88 mg/dL (60-115); Potassium 4.4 mmol/l (3.3-5.1); Sodium 138 mmol/L (135-145)
--- NOTE | 2020-05-24 13:09 | P.PNNP_ITS ---
Subjective Subjective Date of Service: 05/24/20 Principal diagnosis: JOVON Interval history: Seen and examiend. Events noted. Feeling better Physical Exam Vital Signs: Vital Signs: Last Vital Signs Temp 96.9 F 05/24/20 11:27 Pulse 97 05/24/20 11:27 Resp 20 05/24/20 11:27 BP 102/54 L 05/24/20 11:27 Pulse Ox 95 05/24/20 11:27 Body Mass Index 24.8 Const: General: cooperative and no acute distress Orientation/consciousness: patient oriented x3 Eyes: General: appearance normal, both eyes and all related structures Resp: Effort & Inspection: normal respiratory effort and able to speak in complete sentences Cardio: Rate: regular rate Rhythm: regular rhythm GI: Palpation (GI): Soft to palpation Auscultation: normal bowel sounds Skin: General skin exam: no rashes or lesions noted Neuro: General: patient oriented x3 Cognition (Neuro): normal cognition Extrem: General: Yes normal to inspection and Yes no pedal edema Objective Data Labs CBC & Chem 7: 05/24/20 08:25 05/24/20 08:25 Labs: Laboratory Results - last 24 hr 05/24/20 05/24/20 08:25 08:25 Hgb 9.7 L Hct 31.0 L Sodium 138 Potassium 4.4 Chloride 107 Carbon Dioxide 22 Anion Gap 13 BUN 63 H Creatinine 3.43 H Estim Creat Clear Calc 9.3 Estimated GFR 13 Random Glucose 88 Calcium 7.6 L Microbiology Microbiology Results: Microbiology 05/19/20 20:35 Blood - Venous Blood Culture - Preliminary 05/19/20 20:36 Blood - Venous Blood Culture - Final 05/19/20 21:00 Urine clean catch - Clean Catch Midstream Urine Culture - [facility] Assessment & Plan Assessment and plan (1) JOVON (acute kidney injury): Status: Acute Assessment and Plan: This is an 85-year-old female with past medical history of hydronephrosis status post bilateral stent placement, who presents to the hospital with abdominal pain found to have UTI as well as JOVON. 1. JOVON: SCr decr this am, albeit it slowly, s/p stent replacement 2. 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 Pyuria: UTI and cocnern for Obs pyleo 4. HyperK and decr HCO3 : d/t JOVON and K controlled 5. Cervical Ca: ? details 6: Obs Uropathy: presumaly d/t cervical cancer but retropertineal fibrosis/LN extrsinc compression etc.. most likely; but bladder invovlement wth internal occlussion a possibility REC: cont to track UOP/renal func which at this point can be done as asn outpt; avoid NToxins, ABx as noted; avoid NToxins will follow clsoely with team (2) Paroxysmal atrial fibrillation: Status: Acute (3) Hematuria: Status: Acute (4) Urinary tract infection: Problem details: She appears to have bacteremia from possible enterococcus urine Results are pending She has seen Urology There are no clinical signs of proctitis with no rectal pain or swelling Status: Acute Time Spent With Patient Time: Total time spent is greater than 50% in coordination of care (as documented) at patient's floor/unit and/or counseling patient:
--- NOTE | 2020-05-24 18:18 | HO.PM.IMPN ---
Subjective Subjective Date of Service: 05/25/20 Interval History: JOVON, bacteremia Review of Systems Patient denies any chest pain or shortness of breath or abdominal pain or fever or chills or any blood in the urine any more. Physical Exam Vital Signs: Vital Signs: Last Vital Signs Temp 97.4 F 05/24/20 15:45 Pulse 96 05/24/20 15:45 Resp 20 05/24/20 15:45 BP 95/68 05/24/20 15:45 Pulse Ox 100 05/24/20 15:45 Body Mass Index 24.8 Physical exam: Cvs: rrr, [id number] , no murmur res: clear to auscultation ,no rhonchii or wheezing abd: no rebound or guarding ,nt, bs present. ext pulses present , no cyanosis neuro: axo3 , nonfocal. Objective Data Current Medications Generic Name Dose Route Start Last Admin Trade Name Freq PRN Reason Stop Dose Admin Acetaminophen 650 mg 05/19/20 23:26 05/21/20 10:23 Acetaminophen 325 Mg Tablet PO 650 mg Q6H PRN Administration Pain, Mild (Pain Scale 1-3) Alprazolam 0.5 mg 05/19/20 23:26 05/23/20 19:30 Alprazolam 0.5 Mg Tablet PO 0.5 mg BID PRN Administration Anxiety Amiodarone HCl 200 mg 05/20/20 09:00 05/24/20 07:46 Amiodarone Hcl 200 Mg Tablet PO 200 mg DAILY ROBBIE Administration Docusate Sodium 100 mg 05/19/20 23:26 Docusate Sodium 100 Mg Capsule PO DAILY PRN Constipation Furosemide 20 mg 05/22/20 08:00 05/22/20 08:17 Furosemide 20 Mg Tablet PO 20 mg Mo@0800 ROBBIE Administration Protocol Levothyroxine Sodium 50 mcg 05/20/20 06:30 05/24/20 05:44 Levothyroxine Sodium 50 Mcg Tablet PO 50 mcg DAILY@0630 ROBBIE Administration Linezolid 600 mg 05/23/20 18:00 05/24/20 05:44 Linezolid 600 Mg Tablet PO 600 mg Q12H ROBBIE Administration Melatonin 3 mg 05/23/20 22:42 05/23/20 22:57 Melatonin 3 Mg Tablet PO 3 mg BEDTIME PRN Administration Sleep Metoprolol Tartrate 50 mg 05/20/20 09:00 05/24/20 07:46 Metoprolol Tartrate 50 Mg Tablet PO 50 mg BID [facility] Administration Protocol Omeprazole 20 mg 05/23/20 08:30 05/24/20 05:44 Omeprazole 20 Mg Capsule. PO 20 mg DAILY@0630 [facility] Administration Ondansetron HCl 4 mg 05/19/20 23:26 Ondansetron Hcl 4 Mg/2 Ml Vial IVPUSH Q8H PRN Nausea and Vomiting Ondansetron HCl 4 mg 05/21/20 09:45 Ondansetron Hcl 4 Mg/2 Ml Vial IVPUSH ONCE PRN Nausea and Vomiting Sodium Chloride 3 ml 05/20/20 00:00 05/24/20 07:46 0.9 % Sodium Chloride Flush 3 Ml Syringe IVFLUSH 3 ml QSHIFT [facility] Administration Labs CBC & Chem 7: 05/25/20 05:53 05/25/20 05:53 Microbiology Microbiology Results: Microbiology 05/19/20 20:35 Blood - Venous Blood Culture - Preliminary 05/19/20 20:36 Blood - Venous Blood Culture - Final 05/19/20 21:00 Urine clean catch - Clean Catch Midstream Urine Culture - Final Assessment and Plan (1) JOVON (acute kidney injury): Status: Acute (2) Bacteremia: Status: Acute (3) Paroxysmal atrial fibrillation: Status: Acute (4) Hematuria: Status: Acute (5) Urinary tract infection: Problem details: She appears to have bacteremia from possible enterococcus urine Results are pending She has seen Urology There are no clinical signs of proctitis with no rectal pain or swelling Status: Acute Assessment and Plan: 85-year-old Kinyarwanda-speaking female istory of anxiety, Ramos's palsy, cervical cancer, CHF, DVT, GERD, hydronephrosis s/p bilateral uretera stents at [facility] 18 months ago, and intermittently changed, HTN, hypercholesterolemia, paroxysmal AFib on anticoagulant who presents to the hospital with failure to thrive and not feeling well and is found to have JOVON on CKD, hyperkalemia, and bilateral hydronephrosis. 1. JOVON--thought to be likely from obstructive uropathy. Slightly better, Cr 7.17(05/19)--> 5.13 (05/21) Urology to replace stents yesterday, hold lasix cr trending to range3.9 Creatinine was running between 1.7-2 range over the last year. moniter bmp 2.Metabolic Acidosis d/t renal failure--Improved with IVF with bicab, bicab no 18 up from 10 3.UTI--No spesis, no evidence of systemic infection or stent infection. Culture negative switched . bactermia -gram positive bacteremia ,d/w ID: continue agunmentin , sensitvities still pending. 4.abdominal pain-- CT shows bowel thickening c/w colitis. no pain at the moment Continue Flagyl/augmentin (dc ceftriaxone since already on augmentin) for above. 5. Paroxysmal AFib-d/w nwphro : added back eliquis. Continue metoprolol and Amio. 6. CHF-probbale systolic :appear Euvolumic, hold diuretics updated Daughter Alina [phone] is HCP DVT Prophylaxis: device and hold Apixiban
[2020-05-24] MEDS: Apixaban 2.5 MG TABLET PO (21:51)
[2020-05-25] VITALS (7 sets, daily range): BP systolic 85–138; BP diastolic 50–74; PULSE 85–105; RESP 16–19; TEMP 36.1–36.8; O2SAT 94–100
[2020-05-25] MEDS: 0.9 % Sodium Chloride Flush 3 ML SYRINGE IVFLUSH ×3 (00:46→17:16)
[2020-05-25] MEDS: Linezolid 600 MG TABLET PO ×2 (06:01→17:16)
[2020-05-25] MEDS: Levothyroxine Sodium 50 MCG TABLET PO (06:01)
[2020-05-25] MEDS: Omeprazole 20 MG CAPSULE.DR PO (06:01)
[2020-05-25 06:43] LABS: Hematocrit 29.8 % (37-47); Hemoglobin 9.4 g/dl (12.0-16.0)
[2020-05-25 07:06] LABS: Anion Gap 15 (12-20); Blood Urea Nitrogen 57 mg/dL (9-16); Calcium 7.5 mg/dL (8.4-10.2); Carbon Dioxide 21 mmol/L (22-29); Chloride 110 mmol/L (96-108); Creatinine Clr Calc Pharmacy 9.9; Estimated Glomerular Filt Rate 14; Glucose Random 87 mg/dL (60-115); Potassium 4.6 mmol/l (3.3-5.1); Sodium 141 mmol/L (135-145)
[2020-05-25] MEDS: Amiodarone HCL 200 MG TABLET PO (09:10)
[2020-05-25] MEDS: Apixaban 2.5 MG TABLET PO ×2 (09:10→21:00)
--- NOTE | 2020-05-25 10:18 | PC.NURSE ---
1010 Patient up and walking without walker or assistance. This RN came into room and gave her walker and assisted with walking. Patient stated she felt sleepy . Patient lost consciousness. This RN caught patient before falling and assisted patient to bed. Rapid Response called. Vitals obtained. BP 134/63 HR [address] Carpenter at bedside. Patient woke up and stated she felt better . No longer dizzy. No new orders at this time. Bed alarm on. Avasys on. No further complaints at this time.
--- NOTE | 2020-05-25 10:50 | MHC.CM.PN ---
nurse career services assistant kristen electronic medical record reviewed along with case discussed on multiple disciplinary rounds, per hospitalist the original plan for discharge today is on hold patient had a dizzy spell and the hospitalists wants to observe her today, reviewed with her daughter the medicare imm and as requested left at bedside to go home with her, recalled daksha daughter to inform her that patient will continue to stay here discharge plan home living on the first floor family live on the second floor, with new referral to the [facility] for nursing for diagnosis sign and symptom management. 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
--- NOTE | 2020-05-25 15:30 | HO.PM.IMPN ---
Subjective Subjective Date of Service: 05/26/20 Interval History: weakness , ? vasovagal Review of Systems Patient had vasovagal episode this morning-she was about to faint but did not pass out. She said she felt weak after eating, was trying to go to the bathroom on her own- Seen: Her vitals are stable am mentally intact ,no new complaints Physical Exam Vital Signs: Vital Signs: Last Vital Signs Temp 96.9 F 05/25/20 11:57 Pulse 105 H 05/25/20 11:57 Resp 18 05/25/20 11:57 BP 96/54 L 05/25/20 11:57 Pulse Ox 100 05/25/20 11:57 Body Mass Index 24.8 Physical exam: Constitutional: Not in acute distress Cvs: rrr, [id number] , no murmur res: clear to auscultation ,no rhonchii or wheezing abd: no rebound or guarding ,nt, bs present. ext pulses present , no cyanosis neuro: axo3 , nonfocal. Objective Data Current Medications Generic Name Dose Route Start Last Admin Trade Name Lorraine PRN Reason Stop Dose Admin Acetaminophen 650 mg 05/19/20 23:26 05/21/20 10:23 Acetaminophen 325 Mg Tablet PO 650 mg Q6H PRN Administration Pain, Mild (Pain Scale 1-3) Amiodarone HCl 200 mg 05/20/20 09:00 05/25/20 09:10 Amiodarone Hcl 200 Mg Tablet PO 200 mg DAILY ROBBIE Administration Apixaban 2.5 mg 05/24/20 21:00 05/25/20 09:10 Apixaban 2.5 Mg Tablet PO 2.5 mg BID ROBBIE Administration Docusate Sodium 100 mg 05/19/20 23:26 Docusate Sodium 100 Mg Capsule PO DAILY PRN Constipation Furosemide 20 mg 05/22/20 08:00 05/22/20 08:17 Furosemide 20 Mg Tablet PO 20 mg Mo@0800 ROBBIE Administration Protocol Levothyroxine Sodium 50 mcg 05/20/20 06:30 05/25/20 06:01 Levothyroxine Sodium 50 Mcg Tablet PO 50 mcg DAILY@0630 ROBBIE Administration Linezolid 600 mg 05/23/20 18:00 05/25/20 06:01 Linezolid 600 Mg Tablet PO 600 mg Q12H ROBBIE Administration Melatonin 3 mg 05/23/20 22:42 05/23/20 22:57 Melatonin 3 Mg Tablet PO 3 mg BEDTIME PRN Administration Sleep Omeprazole 20 mg 05/23/20 08:30 05/25/20 06:01 Omeprazole 20 Mg Capsule. PO 20 mg DAILY@0630 [facility] Administration Ondansetron HCl 4 mg 05/19/20 23:26 Ondansetron Hcl 4 Mg/2 Ml Vial IVPUSH Q8H PRN Nausea and Vomiting Ondansetron HCl 4 mg 05/21/20 09:45 Ondansetron Hcl 4 Mg/2 Ml Vial IVPUSH ONCE PRN Nausea and Vomiting Sodium Chloride 3 ml 05/20/20 00:00 05/25/20 09:10 0.9 % Sodium Chloride Flush 3 Ml Syringe IVFLUSH 3 ml QSHIFT [facility] Administration Labs CBC & Chem 7: 05/25/20 05:53 05/25/20 05:53 Microbiology Microbiology Results: Microbiology 05/19/20 20:35 Blood - Venous Blood Culture - Preliminary 05/19/20 20:36 Blood - Venous Blood Culture - Final 05/19/20 21:00 Urine clean catch - Clean Catch Midstream Urine Culture - Final Assessment and Plan (1) Bacteremia: Status: Acute (2) JOVON (acute kidney injury): Status: Acute (3) Paroxysmal atrial fibrillation: Status: Acute (4) Hematuria: Status: Acute (5) Urinary tract infection: Status: Acute Assessment and Plan: 85-year-old Japanese-speaking female istory of anxiety, Ramos's palsy, cervical cancer, CHF, DVT, GERD, hydronephrosis s/p bilateral uretera stents at [facility] 18 months ago, and intermittently changed, HTN, hypercholesterolemia, paroxysmal AFib on anticoagulant who presents to the hospital with failure to thrive and not feeling well and is found to have JOVON on CKD, hyperkalemia, and bilateral hydronephrosis. 1. JOVON--thought to be likely from obstructive uropathy. Slightly better, Cr 7.17(05/19)--> 5.13 (05/21) Urology to replace stents yesterday, hold lasix cr trending to range3.9 Creatinine was running between 1.7-2 range over the last year. moniter bmp 2.Metabolic Acidosis d/t renal failure--Improved with IVF with bicab, bicab no 18 up from 10 3.UTI--No spesis, no evidence of systemic infection or stent infection. Culture negative switched . bactermia -gram positive bacteremia ,switched to linezolid, sensitvities-did not grow on gram stain as per micolab. echo pending 4.abdominal pain-- CT shows bowel thickening c/w colitis. no pain at the moment There are no clinical signs of proctitis with no rectal pain or swelling. 5. Paroxysmal AFib-d/w nwphro : added back eliquis. Continue metoprolol and Amio. 6. CHF-probbale systolic :appear Euvolumic, hold diuretics 7. vasovagal episode : will continue to moniter moniter closely updated Daughter Alina [phone] is HCP DVT Prophylaxis: device and hold Apixiban
--- NOTE | 2020-05-25 17:57 | PM.PNNEP ---
Subjective Subjective Date of Service: 05/25/20 Principal diagnosis: JOVON Interval history: Seen and examined. Events noted. Physical Exam Vital Signs: Vital Signs: Last Vital Signs Temp 97.4 F 05/25/20 15:33 Pulse 85 05/25/20 15:33 Resp 18 05/25/20 15:33 BP 105/66 05/25/20 15:33 Pulse Ox 100 05/25/20 15:33 Body Mass Index 24.8 Const: General: cooperative and no acute distress Orientation/consciousness: patient oriented x3 Eyes: General: appearance normal, both eyes and all related structures Resp: Effort & Inspection: normal respiratory effort and able to speak in complete sentences Cardio: Rate: regular rate Rhythm: regular rhythm GI: Palpation (GI): Soft to palpation Auscultation: normal bowel sounds Skin: General skin exam: no rashes or lesions noted Neuro: General: patient oriented x3 Cognition (Neuro): normal cognition Extrem: General: Yes normal to inspection and Yes no pedal edema Objective Data Labs CBC & Chem 7: 05/25/20 05:53 05/25/20 05:53 Labs: Laboratory Results - last 24 hr 05/25/20 05/25/20 05:53 05:53 Hgb 9.4 L Hct 29.8 L Sodium 141 Potassium 4.6 Chloride 110 H Carbon Dioxide 21 L Anion Gap 15 BUN 57 H Creatinine 3.18 H Estim Creat Clear Calc 9.9 Estimated GFR 14 Random Glucose 87 Calcium 7.5 L Microbiology Microbiology Results: Microbiology 05/19/20 20:35 Blood - Venous Blood Culture - Preliminary 05/19/20 20:36 Blood - Venous Blood Culture - Final 05/19/20 21:00 Urine clean catch - Clean Catch Midstream Urine Culture - Final Assessment & Plan Assessment and plan (1) JOVON (acute kidney injury): Status: Acute Assessment and Plan: This is an 85-year-old female with past medical history of hydronephrosis status post bilateral stent placement, who presents to the hospital with abdominal pain found to have UTI as well as JOVON. 1. JOVON: SCr decr this am, albeit it slowly, s/p stent replacement 2. 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 Pyuria: UTI and cocnern for Obs pyleo 4. HyperK; resolved; and decr HCO3 : d/t JOVON 5. Cervical Ca: ? details 6: Obs Uropathy: resolving with stent replacement REC: cont to track UOP/renal func which at this point can be done as asn outpt; avoid NToxins, ABx as noted; avoid NToxins will follow clsoely with team (2) Paroxysmal atrial fibrillation: Status: Acute (3) Hematuria: Status: Acute (4) Urinary tract infection: Status: Acute Time Spent With Patient Time: Total time spent is greater than 50% in coordination of care (as documented) at patient's floor/unit and/or counseling patient:
[2020-05-26] MEDS: 0.9 % Sodium Chloride Flush 3 ML SYRINGE IVFLUSH ×2 (01:03→09:25)
[2020-05-26 04:00] VITALS: BP 140/69; PULSE 69; RESP 19; TEMP 36.4; O2SAT 97
[2020-05-26] MEDS: Levothyroxine Sodium 50 MCG TABLET PO (06:02)
[2020-05-26] MEDS: Omeprazole 20 MG CAPSULE.DR PO (06:02)
[2020-05-26] MEDS: Linezolid 600 MG TABLET PO (06:02)
[2020-05-26 08:00] VITALS: BP 93/67; PULSE 108; RESP 18; TEMP 36.6; O2SAT 98
--- NOTE | 2020-05-26 09:00 | CA_ITS ---
Transthoracic Echocardiogram Patient (Last, First, Middle): Amrik Gray, Gender: Female Date of : 1935 Age: 85 Procedure Date: 05/26/2020 Procedure Type: Transthoracic Echocardiogram Location: S3E Height: 149.86 cm Weight: 55.79 kg BSA: 1.50 m2 Heart Rate: bpm BP: 140 / 69 mmHg Auditor Internal: BRUCE Urbina MD: Franco Carpenter MD Symptoms: gram positive bacteremia Study Quality: Fair Conclusions: - The left ventricular systolic function is normal. The visually estimated ejection fraction is between 55-60%. - Diastolic function is indeterminate on the basis of available data. - Normal right ventricular cavity size. There is borderline right ventricular systolic function. - There is severe mitral annular calcification. - Consider a BRYCE if clinically appropriate. Findings Left Ventricle Normal left ventricular cavity size. There is mildly increased left ventricular wall thickness. The left ventricular systolic function is normal. The visually estimated ejection fraction is between 55-60%. There is no evidence of regional wall motion abnormalities. Diastolic function is indeterminate on the basis of available data. Right Ventricle Normal right ventricular cavity size. There is borderline right ventricular systolic function. Atria The left atrium is severely dilated. The right atrium is normal in size. Aortic Valve There is mild calcification of the aortic valve. There is mild thickening of the aortic valve. There is no aortic valve stenosis. There is no aortic valve regurgitation. Mitral Valve There is severe mitral annular calcification. There is trace mitral valve regurgitation. There is no mitral valve stenosis. Pulmonic Valve The pulmonic valve is likely normal. Tricuspid Valve Normal tricuspid valve structure and function. There is moderate tricuspid valve regurgitation. Normal right atrial pressure. There is no evidence of pulmonary hypertension. Great Vessels There is mild dilatation of the ascending aorta. The visualized portions of the pulmonary artery and branches are normal. Venous The inferior vena cava is normal in size and collapses greater than 50% with inspiration. Pericardium/Pleural There is no evidence of pericardial effusion. Prior Study Comparison No significant change compared to prior study dated: 02/15/2020. Recommendations, Care & Conclusions Consider a BRYCE if clinically appropriate. Measurements 2D Linear Measurements IVSd: 1.09 0.6-0.9/0.6-1.0 cm LVIDd: 3.43 3.9-5.3/4.2-5.9 cm LVIDd Index: 2.29 2.4-3.2/2.2-3.1 cm/m2 LVIDs: 2.51 2.0-3.6 cm LVPWd: 1.11 0.7-1.1 cm Ao Root: 3.10 2.1-3.5 cm LA Diam: 3.80 2.7-3.8/3.0-4.0 cm LAIDs Index: 2.53 1.5-2.3 cm/m2 LV Mass: 143.62 67-162/88-224 g LV Mass Index: 95.75 43-95/49-115 g/m2 LVOT Diam: 2.00 3.0+(-)1.3 cm 2D Systolic Function EF 4C: 52.40 >55% EF 2C: 45.80 >55% Mitral Valve MV VTI: 0.29 MV Pk Eliazar: 1.88 MV Mn Eliazar: 1.30 MV Pk Grad: 14.00 MV Mn Grad: 8.00 Aortic Valve AoV Pk Eliazar: 1.94 AoV Mn Eliazar: 1.42 AoV VTI: 0.31 AoV Pk Grad: 15.00 Aov Mn Grad: 9.00 RUSSELL Cont.VTI: 1.52 LVOT LVOT Pk Eliazar: 1.00 LVOT Mn Eliazar: 0.56 LVOT VTI: 0.15 LVOT Pk Grad: 4.00 LVOT Mn Grad: 2.00 LVOT Diam: 2.00 LVOT Area: 3.14 Tricuspid Valve TR Pk Eliazar: 2.48 TR Pk Grad: 25.00 RA Press: 3.00 RVSP: 28.00 Great Vessels Aorta Ao Root-2D: 3.10 2.0-3.7 cm Ao Asc: 3.50 2.1-3.4 cm Ao Arch: 2.60 Updated in Other Vendor System with Status of Final Abad Bishop MD electronically signed on 05/26/2020 12:53:25 PM with status of Final
[2020-05-26] MEDS: Amiodarone HCL 200 MG TABLET PO (09:25)
[2020-05-26] MEDS: Apixaban 2.5 MG TABLET PO (09:25)
[2020-05-26 09:32] VITALS: BP 98/66; PULSE 86
--- NOTE | 2020-05-26 10:32 | PM.PNNEP ---
Subjective Subjective Date of Service: 05/26/20 Principal diagnosis: JOVON Interval history: Seen and examined. Events noted. BP at times running low and resporeeted Lheaded by RN...pateint denies to me that she was LHeaded Physical Exam Vital Signs: Vital Signs: Last Vital Signs Temp 97.8 F 05/26/20 08:00 Pulse 86 05/26/20 09:32 Resp 18 05/26/20 08:00 BP 98/66 05/26/20 09:32 Pulse Ox 98 05/26/20 08:00 Body Mass Index 24.8 Const: General: cooperative and no acute distress Orientation/consciousness: patient oriented x3 Eyes: General: appearance normal, both eyes and all related structures Resp: Effort & Inspection: normal respiratory effort and able to speak in complete sentences Cardio: Rate: regular rate Rhythm: regular rhythm GI: Palpation (GI): Soft to palpation Auscultation: normal bowel sounds Skin: General skin exam: no rashes or lesions noted Neuro: General: patient oriented x3 Cognition (Neuro): normal cognition Extrem: General: Yes normal to inspection and Yes no pedal edema Objective Data Labs CBC & Chem 7: 05/25/20 05:53 05/25/20 05:53 Microbiology Microbiology Results: Microbiology 05/19/20 20:35 Blood - Venous Blood Culture - Preliminary 05/19/20 20:36 Blood - Venous Blood Culture - Final 05/19/20 21:00 Urine clean catch - Clean Catch Midstream Urine Culture - Final Assessment & Plan Assessment and plan (1) JOVON (acute kidney injury): Status: Acute Assessment and Plan: This is an 85-year-old female with past medical history of hydronephrosis status post bilateral stent placement, who presents to the hospital with abdominal pain found to have UTI as well as JOVON. 1. JOVON: SCr decr this am, albeit it slowly, s/p stent replacement 2. 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 Pyuria: UTI and cocnern for Obs pyleo 4. HyperK; resolved; and decr HCO3 : d/t JOVON 5. Cervical Ca: ? details 6: Obs Uropathy: resolving with stent replacement 7. Low BPs REC: cont to track UOP/renal func which at this point can be done as an outpt; avoid NToxins, ABx as noted; avoid NToxins; hold diuretics, consider trail of midrine 2.5 mg in and and mid day...needs to check HBPs will follow clsoely with team (2) Paroxysmal atrial fibrillation: Status: Acute (3) Hematuria: Status: Acute (4) Urinary tract infection: Status: Acute Time Spent With Patient Time: Total time spent is greater than 50% in coordination of care (as documented) at patient's floor/unit and/or counseling patient:
[2020-05-26 12:00] VITALS: BP 138/75; PULSE 111; RESP 18; TEMP 36.8; O2SAT 91
[2020-05-26 12:26] VITALS: BP 138/75; PULSE 111; O2SAT 91
--- NOTE | 2020-05-26 15:11 | PM.DS ---
DS: Providers Provider Date of Service: 05/26/20 Date of admission: 05/19/20 23:26 Primary care physician: Renu Simon MD Consults: 05/19/20 23:26 Consult to Urology Routine Consulting Provider: Caden Jeffers III Reason for consultation: urinary stents [facility] UTI 05/20/20 08:13 Consult to Nephrology Routine Consulting Provider: Chandler Bustillo Reason for consultation: JOVON Has provider been notified: No 05/20/20 10:14 Consult to Nephrology Routine Consulting Provider: Sharif Mercedes Reason for consultation: JOVON Has provider been notified: Yes 05/22/20 16:33 Consult to Infectious Diseases Routine Consulting Provider: Paula Seaman Reason for consultation: gram positive bactermia Has provider been notified: No DS: Diagnosis Discharge Diagnosis (1) Bacteremia: Status: Acute (2) JOVON (acute kidney injury): Status: Acute (3) Paroxysmal atrial fibrillation: Status: Acute (4) Hematuria: Status: Acute (5) Urinary tract infection: Status: Acute DS: Medications Discharge Medications Home Medications: Home Medications Medication Instructions Recorded Confirmed alprazolam 0.5 mg PO BID PRN 01/26/20 05/19/20 furosemide 20 mg tablet 20 mg PO MO@0800 tab 03/15/20 05/21/20 Previous Rx's Medication Instructions Recorded amiodarone 200 mg tablet 200 mg PO DAILY 30 Days #30 tab 03/01/20 apixaban 2.5 mg tablet 2.5 mg PO BID 30 Days #60 tab 03/01/20 levothyroxine 50 mcg tablet 50 mcg PO QAM #30 tab 04/07/20 mirtazapine 7.5 mg tablet 7.5 mg PO BEDTIME #30 tab 05/04/20 docusate sodium 100 mg PO DAILY PRN #30 cap 05/26/20 linezolid 600 mg PO Q12H #22 tab 05/26/20 metoprolol tartrate [Lopressor] 25 mg PO BID 30 Days #60 tab 05/26/20 omeprazole 20 mg PO DAILY@0630 #30 cap 05/26/20 DS: Summary Hospital Course Hospital Course: 85-year-old [place]amian-speaking female with past medical history of anxiety, Ramos's palsy, cervical cancer, CHF, DVT, GERD, hydronephrosis, HTN, hypercholesterolemia, paroxysmal AFib on anticoagulant who presents to the hospital with complaints of not feeling well. Patient reports that she went to her PCP complaining that she has not been feeling well she has low oral intake, abdominal pain that is diffuse as well as suprapubic pain and therefore he asked her to come to the ED. Patient reports that her symptoms started about 2-3 days ago, she has diffuse abdominal pain, she is also complaining of flank pain bilaterally, she has not eating much due to the abdominal pain, not associated with any nausea or vomiting, no diarrhea constipation. She denies any urinary symptoms including no frequency urgency or dysuria. She has no chest pain, no shortness of breath, no cough, no sputum production, no headache or change in vision, no weakness numbness or tingling. To the ED vitals are stable with no significant abnormal findings. Labs are significant for WBC count of 9.9, hemoglobin of 10.9, hematocrit 33.7, PT of 26.6, INR of 2.2, sodium of 135, potassium 5.2, BUN of 116, creatinine of 7.17 (baseline in March), lactic acid of 1.3, UA positive for leukocyte Estrace, large number of WBC, COVID-[address] abdomen shows in place bilaterally, significant hydronephrosis greater on the right than the left kidney with prominent uterus. Some mild tissue stranding around the distal rectosigmoid. Past medical history: Ramos's palsy, cervical cancer, CHF, DVT, GERD, hydronephrosis status post bilateral stents, hypertension, HLD, paroxysmal AFib on apixaban, anxiety. Hospital Course problem urena section: 85-year-old [place]amian-speaking female istory of anxiety, Ramos's palsy, cervical cancer, CHF, DVT, GERD, hydronephrosis s/p bilateral uretera stents at [facility] 18 months ago, and intermittently changed, HTN, hypercholesterolemia, paroxysmal AFib on anticoagulant who presents to the hospital with failure to thrive and not feeling well and is found to have JOVON on CKD, hyperkalemia, and bilateral hydronephrosis. JOVON--thought to be likely from obstructive uropathy. intial Cr 7.17(05/19),Urology to replace stents Patient initially came with JOVON probably secondary to obstructive uropathy seen by Urology and stent removal, JOVON is improving afterwards. Patient Lasix on hold. Monitor BMP outpatient with PCP and further management as per PCP and Urology outpatient. Patient also found to have bacteremia but sensitivity did not grow: Seen by infectious disease and echo was done which came out to be grossly fine( no vegetation): Patient is going to go home with linezolid-please complete the course, we will hold off or Remeron until patient is on linezolid due to drug interaction. Blood pressure labile: Will adjust metoprolol 25 mg p.o. b.i.d. please start on Friday05/29/20: Further management outpatient as per PCP. CHF-probbale systolic :appear Euvolumic, hold diuretics: Can be reintroduce outpatient as per PCP after repeating BMP once JOVON seems better. echo: The left ventricular systolic function is normal. The visually estimated ejection fraction is between 55-60%. Diastolic function is indeterminate on the basis of available data. Normal right ventricular cavity size. There is borderline right ventricular systolic function. There is severe mitral annular calcification, trace mitral regurgitation, no mitral wall stenosis. Patient is to follow-up with Nephrology and PCP and Cardiology out patiently. Above management discussed with the patient in detail length she understand and in agreement with the above plan, time spent 50 minutes and 50% time spent on counseling. Significant findings: As above. Procedures performed: None. Treatment and response: As above. Complications: None. Time Spent with Patient Time attestation: Total time spent providing and/or coordinating discharge services: Discharge coordination time: Greater than 30 minutes Physical Exam Vital Signs: Vital Signs: Last Vital Signs Temp 98.2 F 05/26/20 12:00 Pulse 111 H 05/26/20 12:26 Resp 18 05/26/20 12:00 BP 138/75 05/26/20 12:26 Pulse Ox 91 L 05/26/20 12:26 Body Mass Index 24.8 Physical exam: Constitutional: Not in acute distress. HEENT: Eyes: Anicteric, no discharge. Neck supple Cvs: rrr, [id number] , no murmur res: clear to auscultation ,no rhonchii or wheezing abd: no rebound or guarding ,nt, bs present. ext pulses present , no cyanosis neuro: axo3 , nonfocal. DS: Data Data Completed and Pending Completed studies during hospitalization [Text1]: Procedures [facility], Single (01/26/20) Labs on day of discharge: Laboratory Tests 05/19/20 05/19/20 05/19/20 20:36 20:36 20:36 WBC 9.9 RBC 3.74 L Hgb 10.9 L Hct 33.7 L MCV 90.1 MCH 29.1 MCHC 32.3 RDW 15.6 Plt Count 478 H D MPV 9.7 Immature Gran % (Auto) 0.6 H Neut % (Auto) 76.5 H Lymph % (Auto) 15.2 L Mcnairy % (Auto) 7.2 Eos % (Auto) 0.4 Baso % (Auto) 0.1 Lymph # (Auto) 1.5 Mcnairy # (Auto) 0.7 Eos # (Auto) 0.0 Baso # (Auto) 0.0 Abs Immat Gran (auto) 0.06 H Absolute Neuts (auto) 7.6 Absolute Nucleated RBC 0.000 Nucleated RBC % (auto) 0.0 PT 26.6 H INR 2.2 H APTT 38.7 H Sodium 135 Potassium 5.2 H Chloride 103 Carbon Dioxide 18 L Anion Gap 19 BUN 116 H* D Creatinine 7.17 H* Estim Creat Clear Calc 4.4 Estimated GFR 5 Random Glucose 123 H Lactic Acid Calcium 8.2 L Iron TIBC % Saturation Unsat Iron Binding Ferritin Total Bilirubin Direct Bilirubin AST ALT Alkaline Phosphatase Troponin I High Sens Total Protein Albumin Vitamin B12 Folate Urine Color Urine Appearance Urine pH Ur Specific [place] Urine Protein Urine Glucose (UA) Urine Ketones Urine Blood Urine Nitrite Ur Leukocyte Esterase Urine RBC Urine WBC Ur Squamous Epith Cells Urine Bacteria COVID-19 ([place]) COVID-19 Clin Com 05/19/20 05/19/20 05/19/20 20:36 20:36 21:10 WBC RBC Hgb Hct MCV MCH MCHC RDW Plt Count MPV Immature Gran % (Auto) Neut % (Auto) Lymph % (Auto) Mcn[place] % (Auto) Eos % (Auto) Baso % (Auto) Lymph # (Auto) Mcnairy # (Auto) Eos # (Auto) Baso # (Auto) Abs Immat Gran (auto) Absolute Neuts (auto) Absolute Nucleated RBC Nucleated RBC % (auto) PT INR APTT Sodium Potassium Chloride Carbon Dioxide Anion Gap BUN Creatinine Estim Creat Clear Calc Estimated GFR Random Glucose Lactic Acid 1.3 Calcium Iron TIBC % Saturation Unsat Iron Binding Ferritin Total Bilirubin Direct Bilirubin AST ALT Alkaline Phosphatase Troponin I High Sens 12.5 Total Protein Albumin Vitamin B12 Folate Urine Color YELLOW Urine Appearance CLOUDY Urine pH 8.5 H Ur Specific [place] 1.015 Urine Protein 3+ H Urine Glucose (UA) NEG Urine Ketones NEG Urine Blood 3+ H Urine Nitrite NEG Ur Leukocyte Esterase 3+ H Urine RBC 5-9 H Urine WBC 76-150 H Ur Squamous Epith Cells TRACE Urine Bacteria 3+ COVID-19 ([place]) COVID-19 Clin Com 05/20/20 05/20/20 05/20/20 00:01 04:34 04:45 WBC 8.7 RBC 3.65 L Hgb 10.6 L Hct 33.3 L MCV 91.2 MCH 29.0 MCHC 31.8 RDW 15.9 Plt Count 438 H MPV 10.2 Immature Gran % (Auto) 0.5 H Neut % (Auto) 75.3 H Lymph % (Auto) 17.8 L Mcnairy % (Auto) 5.8 Eos % (Auto) 0.5 Baso % (Auto) 0.1 Lymph # (Auto) 1.6 Mcnairy # (Auto) 0.5 Eos # (Auto) 0.0 Baso # (Auto) 0.0 Abs Immat Gran (auto) 0.04 H Absolute Neuts (auto) 6.6 Absolute Nucleated RBC 0.000 Nucleated RBC % (auto) 0.0 PT INR APTT Sodium 137 Potassium 5.4 H Chloride 107 Carbon Dioxide 14 L Anion Gap 21 H BUN 107 H* Creatinine 6.44 H* Estim Creat Clear Calc 4.9 Estimated GFR 6 Random Glucose 90 Lactic Acid Calcium 7.7 L D Iron TIBC % Saturation Unsat Iron Binding Ferritin Total Bilirubin Direct Bilirubin AST ALT Alkaline Phosphatase Troponin I High Sens Total Protein Albumin Vitamin B12 Folate Urine Color Urine Appearance Urine pH Ur Specific [place] Urine Protein Urine Glucose (UA) Urine Ketones Urine Blood Urine Nitrite Ur Leukocyte Esterase Urine RBC Urine WBC Ur Squamous Epith Cells Urine Bacteria COVID-19 ([place]) Negative COVID-19 Clin Com See Note 05/20/20 05/21/20 05/22/20 16:38 04:34 05:49 WBC RBC Hgb Hct MCV MCH MCHC RDW Plt Count MPV Immature Gran % (Auto) Neut % (Auto) Lymph % (Auto) [place] % (Auto) Eos % (Auto) Baso % (Auto) Lymph # (Auto) Mcn[place] # (Auto) Eos # (Auto) Baso # (Auto) Abs Immat Gran (auto) Absolute Neuts (auto) Absolute Nucleated RBC Nucleated RBC % (auto) PT INR APTT Sodium 138 137 140 Potassium 5.0 4.9 4.6 Chloride 106 106 108 Carbon Dioxide 19 L 17 L 18 L Anion Gap 18 19 19 BUN 105 H* 97 H* 94 H* Creatinine 6.25 H* 5.88 H* 5.13 H* Estim Creat Clear Calc 5.1 5.4 6.2 Estimated GFR 6 7 8 Random Glucose 126 H D 87 143 H D Lactic Acid Calcium 7.8 L 7.4 L 7.7 L Iron TIBC % Saturation Unsat Iron Binding Ferritin Total Bilirubin Direct Bilirubin AST ALT Alkaline Phosphatase Troponin I High Sens Total Protein Albumin Vitamin B12 Folate Urine Color Urine Appearance Urine pH Ur Specific [place] Urine Protein Urine Glucose (UA) Urine Ketones Urine Blood Urine Nitrite Ur Leukocyte Esterase Urine RBC Urine WBC Ur Squamous Epith Cells Urine Bacteria COVID-19 ([place]) COVID-19 Clin Com 05/23/20 05/23/20 05/23/20 05:50 05:50 05:50 WBC RBC Hgb 8.7 L Hct 27.6 L MCV MCH MCHC RDW Plt Count MPV Immature Gran % (Auto) Neut % (Auto) Lymph % (Auto) [place] % (Auto) Eos % (Auto) Baso % (Auto) Lymph # (Auto) Mcn[place] # (Auto) Eos # (Auto) Baso # (Auto) Abs Immat Gran (auto) Absolute Neuts (auto) Absolute Nucleated RBC Nucleated RBC % (auto) PT INR APTT Sodium 139 Potassium 4.8 Chloride 109 H Carbon Dioxide 20 L Anion Gap 15 BUN 77 H Creatinine 3.89 H Estim Creat Clear Calc 8.2 Estimated GFR 11 Random Glucose 96 Lactic Acid Calcium 7.4 L Iron 67 TIBC 150 L % Saturation 45 Unsat Iron Binding 83 Ferritin 273 H Total Bilirubin 0.3 Direct Bilirubin < 0.2 AST 20 ALT 19 Alkaline Phosphatase 54 Troponin I High Sens Total Protein 5.5 L Albumin 2.5 L Vitamin B12 1171 H Folate 7.0 Urine Color Urine Appearance Urine pH Ur Specific [place] Urine Protein Urine Glucose (UA) Urine Ketones Urine Blood Urine Nitrite Ur Leukocyte Esterase Urine RBC Urine WBC Ur Squamous Epith Cells Urine Bacteria COVID-[place] ([place]) COVID-19 TranSiC 05/24/20 05/24/20 05/25/20 08:25 08:25 05:53 WBC RBC Hgb 9.7 L Hct 31.0 L MCV MCH MCHC RDW Plt Count MPV Immature Gran % (Auto) Neut % (Auto) Lymph % (Auto) Mcnairy % (Auto) Eos % (Auto) Baso % (Auto) Lymph # (Auto) Mcn[place] # (Auto) Eos # (Auto) Baso # (Auto) Abs Immat Gran (auto) Absolute Neuts (auto) Absolute Nucleated RBC Nucleated RBC % (auto) PT INR APTT Sodium 138 141 Potassium 4.4 4.6 Chloride 107 110 H Carbon Dioxide 22 21 L Anion Gap 13 15 BUN 63 H 57 H Creatinine 3.43 H 3.18 H Estim Creat Clear Calc 9.3 9.9 Estimated GFR 13 14 Random Glucose 88 87 Lactic Acid Calcium 7.6 L 7.5 L Iron TIBC % Saturation Unsat Iron Binding Ferritin Total Bilirubin Direct Bilirubin AST ALT Alkaline Phosphatase Troponin I High Sens Total Protein Albumin Vitamin B12 Folate Urine Color Urine Appearance Urine pH Ur Specific [place] Urine Protein Urine Glucose (UA) Urine Ketones Urine Blood Urine Nitrite Ur Leukocyte Esterase Urine RBC Urine WBC Ur Squamous Epith Cells Urine Bacteria COVID-[place] ([place] COVID-Revolut 05/25/20 05:53 WBC RBC Hgb 9.4 L Hct 29.8 L MCV MCH MCHC RDW Plt Count MPV Immature Gran % (Auto) Neut % (Auto) Lymph % (Auto) [place] % (Auto) Eos % (Auto) Baso % (Auto) Lymph # (Auto) [place] # (Auto) Eos # (Auto) Baso # (Auto) Abs Immat Gran (auto) Absolute Neuts (auto) Absolute Nucleated RBC Nucleated RBC % (auto) PT INR APTT Sodium Potassium Chloride Carbon Dioxide Anion Gap BUN Creatinine Estim Creat Clear Calc Estimated GFR Random Glucose Lactic Acid Calcium Iron TIBC % Saturation Unsat Iron Binding Ferritin Total Bilirubin Direct Bilirubin AST ALT Alkaline Phosphatase Troponin I High Sens Total Protein Albumin Vitamin B12 Folate Urine Color Urine Appearance Urine pH Ur Specific [place] Urine Protein Urine Glucose (UA) Urine Ketones Urine Blood Urine Nitrite Ur Leukocyte Esterase Urine RBC Urine WBC Ur Squamous Epith Cells Urine Bacteria COVID-19 ([place]) COVID-19 Clin Com Preliminary micro results at discharge 05/19/20 20:35 Blood Culture - Preliminary Blood - Venous Discharge Plan Discharge Patient Disposition: Home Health Service Referrals: [facility] 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 29 hours at night plus 2 hrs at night pcp dr huang instructed to call pcp for post hospitla discharge transportation family) Renu Simon MD [Primary Care Provider] - Sharif Mercedes MD [Physician] - (folllow up 2 weeks) Discharge Medications: New docusate sodium 100 mg Capsule 100 mg PO DAILY PRN (Reason: Constipation) Qty: 30 RF: 0 omeprazole 20 mg Capsule,Delayed Release(Dr/Ec) 20 mg PO DAILY@0630 Qty: 30 RF: 0 linezolid 600 mg Tablet 600 mg PO Q12H Qty: 22 RF: 0 Continued amiodarone 200 mg tablet 200 mg PO DAILY 30 Days Qty: 30 RF: 5 Eliquis 2.5 mg tablet 2.5 mg PO BID 30 Days Qty: 60 RF: 5 levothyroxine 50 mcg tablet 50 mcg PO QAM Qty: 30 RF: 4 alprazolam 0.5 mg Tablet 0.5 mg PO BID PRN (Reason: Anxiety) RF: 0 Changed metoprolol tartrate [Lopressor] 50 mg tablet 25 mg PO BID 30 Days Qty: 60 RF: 5 Held furosemide [Lasix] 20 mg tablet 20 mg PO MO@0800 RF: 0 Hold Instructions: Resume on 05/29/20. start as per pcp after repeating BMP . mirtazapine 7.5 mg tablet 7.5 mg PO BEDTIME Qty: 30 RF: 2 Hold Instructions: hold until on linezolid. Discharge Orders: Discharge Order (Routine); Ordered 05/26/20 Ordered By: Franco Carpenter Diet: advance to usual diet, low fat, low cholesterol and low salt diet Activity on Discharge: As tolerated Stand Alone Forms: Patient Portal Discharge page Other Ambulatory Orders: Basic Metabolic Panel (Routine) Timeframe: 1 Week Facility: [facility] - Location: Laboratory Ordered By: Franco Carpenter Complete Blood Count no Diff (Routine) Timeframe: 1 Week Facility: [facility] - Location: Laboratory Ordered By: Franco Carpenter Liver Panel (Routine) Timeframe: 1 Week Facility: [facility] - Location: Laboratory Ordered By: Franco Carpenter Care Plan Goals: Patient initially came with JOVON probably secondary to obstructive uropathy seen by Urology and stent removal, JOVON is improving afterwards. Patient Lasix on hold. Monitor BMP outpatient with PCP and further management as per PCP and Urology outpatient. Patient also found to have bacteremia but sensitivity did not grow: Seen by infectious disease and echo was done which came out to be grossly fine: Patient is going to go home with linezolid-please complete the course, we will hold off or Remeron until patient is on linezolid due to drug interaction. Blood pressure labile: Will adjust metoprolol 25 mg p.o. b.i.d. please start on Friday05/29/20: Further management outpatient as per PCP. Health Concerns: As above. Plan of Treatment: As above.
== END 2020-05-26 15:45 | disposition home health service (06) | DRG 660 ==
LOC: HO.ED 21:55 → HO.EDOVER 23:38 → HO.S3 05-21 11:27
PROVIDERS: Internal Medicine; Nurse Practitioner Family; Urology; Admitting Provider Internal Medicine; Emergency Provider Emergency Medicine; PCP Internal Medicine; Visit Provider Internal Medicine
PROC: 0T778DZ Dilation of Left Ureter with Intraluminal Device, Via Natural or Artificial Opening Endoscopic (ICD-10-PCS; CPT 52310; principal; 2020-05-21 09:00)
DX: N13.6 Pyonephrosis (principal); I13.0 Hypertensive heart and chronic kidney disease with heart failure and stage 1 through stage 4 chronic kidney disease, or unspecified chronic kidney disease; I50.22 Chronic systolic (congestive) heart failure; E87.2 Acidosis; N17.9 Acute kidney failure, unspecified; N18.4 Chronic kidney disease, stage 4 (severe); R31.9 Hematuria, unspecified; E87.5 Hyperkalemia; I48.0 Paroxysmal atrial fibrillation; Z85.41 Personal history of malignant neoplasm of cervix uteri; Z20.822 Contact with and (suspected) exposure to COVID-19; Z88.6 Allergy status to analgesic agent; Z79.01 Long term (current) use of anticoagulants; Z79.890 Hormone replacement therapy; Z79.899 Other long term (current) drug therapy
CPT/HCPCS: 36415; 74176; 80048; 80076; 81001; 81003; 82607; 82728; 82746; 83540; 83605; 84484; 85014; 85018; 85025; 85610; 85730; 87040; 87086; 87205; 87635; 93005; 93306; 96365; 97162; 99285; 99291; C2617; J0696; J1100; J2250; J2405; J3010; Q9967

== ENCOUNTER 2020-06-02 09:49 | Outpatient (REF) | payer MEDICARE, MEDICAID, SELFPAY ==
[2020-06-02 10:30] LABS: Hematocrit 32.8 % (37-47); Hemoglobin 10.2 g/dl (12.0-16.0); Mean Corpuscular HGB Conc 31.1 g/dl (31.0-35.0); Mean Corpuscular Hemoglobin 29.1 pg (27.0-33.0); Mean Corpuscular Volume 93.4 fL (80-98); Mean Platelet Volume 9.5 fL (9.4-12.3); Platelet Count 246 X10*3/uL (160-400); Red Blood Count 3.51 X10*6/uL (4.20-5.50); Red Cell Distribution Width 16.9 % (11.0-16.0)
[2020-06-02 11:00] LABS: Alanine Aminotransferase 16 U/L (0-31); Albumin Level 3.2 g/dL (3.5-5.0); Alkaline Phosphatase 83 U/L (39-117); Anion Gap 15 (12-20); Aspartate Amino Transferase 21 U/L (5-31); Bilirubin Direct 0.2 mg/dL (0.0-0.5); Bilirubin Total 0.5 mg/dL (0.0-1.0); Blood Urea Nitrogen 30 mg/dL (9-16); Calcium 8.3 mg/dL (8.4-10.2); Carbon Dioxide 23 mmol/L (22-29); Chloride 107 mmol/L (96-108); Estimated Glomerular Filt Rate 17; Glucose Random 121 mg/dL (60-115); Potassium 4.9 mmol/L (3.3-5.1); Sodium 140 mmol/L (135-145); Total Protein 6.6 g/dL (6.5-8.0)
[2020-06-02 11:06] LABS: Glucose Urine UA NEG (NEG); Leukocyte Esterase Urine 2+ (NEG); Nitrite Urine NEG (NEG); PH 6.5 (5.0-8.0); UACC Culture Trigger YES; Urine Blood 2+ (NEG); Urine Ketones NEG (NEG); Urine Protein 2+ MG/DL (NEG-TRACE)
[2020-06-02 11:07] LABS: Appearance Urine TURBID; Color Urine AMBER
[2020-06-02 11:29] LABS: Bacteria Urine 3+ /LPF; RBC Urine TNTC /HPF (0); Squamous Epithelial Cell Urine TRACE /LPF; UACC CULT YES; WBC Urine TNTC /HPF (0-4)
== END 2020-06-02 09:50 | disposition home or self-care (01) ==
LOC: HO.LAB 09:49
PROVIDERS: Nurse Practitioner Family; PCP Internal Medicine; Visit Provider Internal Medicine
DX: N17.9 Acute kidney failure, unspecified (principal); D64.9 Anemia, unspecified; R78.81 Bacteremia
CPT/HCPCS: 36415; 80048; 80076; 81001; 85027; 87086; 87088

== ENCOUNTER → 2020-06-05 09:24 | Outpatient (BNVA) | payer MEDICARE, MEDICAID, SELFPAY | PROVIDERS: PCP Internal Medicine; Visit Provider Nurse Practitioner Family | DX: I48.91 Unspecified atrial fibrillation (principal); R00.1 Bradycardia, unspecified; I50.9 Heart failure, unspecified; N18.4 Chronic kidney disease, stage 4 (severe); I42.9 Cardiomyopathy, unspecified; E03.9 Hypothyroidism, unspecified | CPT/HCPCS: 93005; 99212 ==

== ENCOUNTER 2020-06-11 03:50 | Inpatient (IN) | payer MEDICARE, MEDICAID, SELFPAY ==
[2020-06-11] VITALS (13 sets, daily range): BP systolic 117–147; BP diastolic 64–78; PULSE 96–122; RESP 10–18; TEMP 36.4–37.3; O2SAT 91–100; BMI 24.4
--- NOTE | ~2020-06-11 | CT_ITS ---
EXAMINATION: CT ABDOMEN AND PELVIS WITHOUT CONTRAST CLINICAL INFORMATION: Abdominal pain. COMPARISON: 05/19/2019 TECHNIQUE: Multidetector volumetric imaging was performed from the superior aspect of the liver through the pubic symphysis. Sagittal and coronal reformatted images were obtained on the technologist's workstation. This CT examination was performed using dose optimization techniques as appropriate, variously including the following: *Automated exposure control *Adjustment of mA and/or kV according to patient size (this includes techniques or standardized protocols for targeted exams where dose is matched to indication/reason for exam; i.e. extremities or head) *Use of iterative reconstruction technique DLP: 506 mGy-cm FINDINGS: LUNG BASES: Coarse triple vessel coronary calcifications and mitral annular calcifications. LIVER, GALLBLADDER, AND BILIARY TREE: The liver is normal in size, shape, and attenuation. No focal hepatic lesion or biliary ductal dilatation is present. Cholecystectomy. PANCREAS: Fatty atrophy. No pancreatic or peripancreatic inflammation. SPLEEN: Unremarkable. ADRENAL GLANDS: Unremarkable. KIDNEYS AND URETERS: Bilateral nephroureteral stents redemonstrated. The distal end of the right nephroureteral stent terminates along the posterolateral bladder, possibly within outpouched bladder, bladder diverticulum or distal RIGHT ureter. Left ureteral stent stably positioned. There is moderate right and mild left hydronephrosis, both of which are improved the previous exam. Trace gas present within the upper pole of left kidney. Decreased dilatation of the bilateral ureters as well. Multifocal bilateral renal cortical scarring is present, likely sequela of previous infections. BLADDER: Contains small nondependent gas. Mild bladder wall thickening posteriorly. GASTROINTESTINAL TRACT: Stomach and small bowel unremarkable. Scattered colonic diverticula without evidence of diverticulitis. Mild perirectal fat stranding redemonstrated. Normal appendix. ABDOMINAL WALL: No significant hernia is appreciated. LYMPH NODES: Normal. VASCULAR: Aorta is atherosclerotic but normal caliber. PELVIC VISCERA: Uterus and adnexa unremarkable. OSSEOUS STRUCTURES: No acute or suspicious osseous abnormalities. CT/CT abdomen pelvis wo con IMPRESSION: * Improved bilateral hydronephrosis, now moderate on the right and mild left with decreased caliber of the bilateral ureters. * New gas within the left upper pole renal collecting system, presumptively related to a small nondependent gas within the bladder. Correlate with recent instrumentation/catheterization. * Interval retraction of the distal end of the right nephroureteral stent which may reside within the distal ureter or retracted right posterolateral bladder wall.
--- NOTE | 2020-06-11 04:03 | ECG_ITS ---
Test Reason : FALL Blood Pressure : / mmHG Vent. Rate : 109 BPM Atrial Rate : 110 BPM P-R Int : 000 ms QRS Dur : 100 ms QT Int : 362 ms P-R-T Axes : 000 -33 141 degrees QTc Int : 487 ms Atrial fibrillation with rapid ventricular response Left axis deviation Minimal voltage criteria for LVH, may be normal variant Septal infarct , age undetermined ST & T wave abnormality, consider lateral ischemia Abnormal ECG When compared with ECG of 19-MAY-2020 21:26, No significant changes seen Referred By: Nalini Way Electronically Signed By:LAURY CHRISTIANSON MD
--- NOTE | 2020-06-11 04:37 | ED_ITS ---
HPI - General Adult General Chief complaint: General Medical Stated complaint: MULTIPLE COMPLAINTS Time Seen by Provider: 06/11/20 04:01 Source: patient and family (Daughter) Mode of arrival: ambulatory History of Present Illness HPI narrative: This is an 85-year-old female with multiple comorbidities that include atrial fibrillation and currently on anticoagulation (Eliquis). Her daughter brought her in this evening for complaints of rectal bleeding after defecation which was noticed on the toilet paper but not in the toilet bowl. On questioning the patient she denies any abdominal discomfort, nausea, vomiting. Patient states she has been feeling dizzy with change of position. Related Data Home Medications Medication Instructions Recorded Confirmed alprazolam 0.5 mg PO BID PRN 01/26/20 06/11/20 Previous Rx's Medication Instructions Recorded amiodarone 200 mg tablet 200 mg PO DAILY 30 Days #30 tab 03/01/20 apixaban 2.5 mg tablet 2.5 mg PO BID 30 Days #60 tab 03/01/20 levothyroxine 50 mcg tablet 50 mcg PO QAM #30 tab 04/07/20 mirtazapine 7.5 mg tablet 7.5 mg PO BEDTIME #30 tab 05/04/20 metoprolol tartrate [Lopressor] 25 mg PO BID 30 Days #60 tab 05/26/20 omeprazole 20 mg PO DAILY@0630 #30 cap 05/26/20 miconazole nitrate 2 % vaginal 1 appful VAGINAL BEDTIME 7 Days 06/08/20 cream #45 g Allergies Allergy/AdvReac Type Severity Reaction Status Date / Time amlodipine [From NORVAS] Allergy Intermediate HIVES Verified 03/14/20 13:33 aspirin [ASA] Allergy Intermediate HIVES Verified 03/14/20 13:33 robert [ROBERT] Allergy Intermediate HIVES Verified 01/28/20 19:23 hydrochlorothiazide Allergy Unknown Hives Verified 03/14/20 13:33 gabapentin AdvReac Unknown dizziness Verified 03/14/20 13:33 lisinopril AdvReac Unknown Cough Verified 03/14/20 13:33 Review of Systems Review of Systems: Pertinent positives and negatives as stated in HPI 10 point review of systems is otherwise negative. PMFSH Past Medical History Source: nursing notes reviewed Medical History Anxiety Ramos's palsy Cervical cancer Congestive heart failure DVT (deep venous thrombosis) GERD (gastroesophageal reflux disease) Hydronephrosis Hypercholesterolemia Hypertension Lumbar degenerative disc disease Osteoarthritis Paroxysmal atrial fibrillation Peripheral vascular disease Vitamin D deficiency Surgical History H/O elbow surgery History of bladder surgery History of cholecystectomy Family History Family History Father Hypertension Stroke CVD (cardiovascular disease) Mother Hypoglycemia Social History Social History Household Members: None Housing: House Alcohol intake: never Smoking Status: Never smoker Second Hand Smoke Exposure: No Advance Directives: No Advance Directives Information Provided: No service: No Current occupational status: disabled Physical Exam Vital Signs: Vital Signs: Last Vital Signs Temp 98.6 F 06/11/20 04:21 Pulse 109 H 06/11/20 06:11 Resp 16 06/11/20 06:11 BP 125/73 06/11/20 06:11 Pulse Ox 98 06/11/20 06:11 Body Mass Index 24.4 VITAL SIGNS: Reviewed. GENERAL: Cachectic, chronically ill, in no acute distress. HEAD: Normocephalic/atraumatic EYES: PERRLA, EOMI OROPHARYNX: no oral lesions noted, posterior pharynx clear, dry mucosa NECK: Supple, no adenopathy LUNGS: Normal breath sounds. SpO2<98> CARDIOVASCULAR: Irregularly irregular without noted murmurs, no JVD or lower extremity edema. ABDOMEN: Soft, non-tender, non-distended with bowel sounds. MATTHEW: Noninflamed external hemorrhoids, minimal stool in rectal vault without gross blood on finger, good rectal tone MUSCULOSKELETAL: No tenderness, deformities, or effusions noted on gross inspection. EXTREMITIES: No cyanosis, clubbing or edema. SKIN: Inspection of the skin reveals no rashes, ulcerations, jaundice, pallor, or petechiae. NEUROLOGIC: Alert and oriented x 4. Course Course Course Narrative: This is an 85-year-old female with history and clinical presentation suggestive of possible hemorrhoidal bleed and will evaluate for alternate etiologies given patient has expressed concern regarding her dizziness. As per daughter ?other than the rectal bleeding everything else is being addressed?. Patient received 2.5 mg of Lopressor IVP with minimal improvement in heart rate and suspect that this is secondary to blood loss. All investigations reviewed and patient re-evaluated. Although there is a noted leukopenia on evaluation of absolute counts lymphocytes are mildly low but otherwise cell count is within normal limits. H&H is noted to be decreased and given patient's cardiac history she will be receiving 1 unit PRBCs and has a positive stool occult blood. In addition, patient has JOVON but low suspicion for CHF exacerbation at this time. COVID-19 testing is pending. This case was discussed with the inpatient hospitalist team who is agreeable for admission. Medical Decision Making Lab Data Result diagrams: 06/11/20 04:49 06/11/20 04:49 Labs: Lab Results 06/11/20 06/11/20 06/11/20 Range/Units 04:38 04:49 04:49 WBC 2.9 L (4.8-10.8) X10*3/uL RBC 2.94 L (4.20-5.50) X10*6/uL Hgb 8.6 L (12.0-16.0) g/dl Hct 27.0 L (37-47) % MCV 91.8 (80-98) fL MCH 29.3 (27.0-33.0) pg MCHC 31.9 (31.0-35.0) g/dl RDW 16.4 H (11.0-16.0) % Plt Count 75 L D (160-400) X10*3/uL MPV 10.6 (9.4-12.3) fL Immature Gran % (Auto) 0.3 (0.0-0.4) % Neut % (Auto) 73.6 H (45-73) % Lymph % (Auto) 23.0 (20-40) % [place] % (Auto) 2.1 (2-11) % Eos % (Auto) 1.0 (0-4) % Baso % (Auto) 0.0 (0-2) % Lymph # (Auto) 0.7 L (1.2-4.9) X10*3/uL [place] # (Auto) 0.1 (0.1-1.2) X10*3/uL Eos # (Auto) 0.0 (0.0-0.4) X10*3/uL Baso # (Auto) 0.0 (0.0-0.2) X10*3/uL Abs Immat Gran (auto) 0.01 (0.00-0.03) X10*3/uL Absolute Neuts (auto) 2.1 (2.0-8.3) X10*3/uL Absolute Nucleated RBC 0.000 (0.0-0.012) X10*3/uL Nucleated RBC % (auto) 0.0 (0.0-0.2) /100WBC Smear Tech's Comments VERIFIED PT (10.8-13.0) SEC INR (0.9-1.1) APTT (24.1-38.0) SEC Sodium 140 (135-145) mmol/L Potassium 4.7 (3.3-5.1) mmol/L Chloride 108 (96-108) mmol/L Carbon Dioxide 20 L (22-29) mmol/L Anion Gap 17 (12-20) BUN 41 H (9-16) mg/dL Creatinine 2.63 H (0.5-1.4) mg/dL Estim Creat Clear Calc 12.5 Estimated GFR 17 Random Glucose 119 H (60-115) mg/dL Calcium 8.3 L (8.4-10.2) mg/dL Total Bilirubin 0.7 (0.0-1.0) mg/dL AST 27 (5-31) U/L ALT 17 (0-31) U/L Alkaline Phosphatase 96 (39-117) U/L B-Natriuretic Peptide (<100) pg/mL Total Protein 6.4 L (6.5-8.0) g/dL Albumin 3.3 L (3.5-5.0) g/dL Stool Occult Blood POS (NEG) Crossmatch 06/11/20 06/11/20 06/11/20 Range/Units 04:49 04:49 05:46 WBC (4.8-10.8) X10*3/uL RBC (4.20-5.50) X10*6/uL Hgb (12.0-16.0) g/dl Hct (37-47) % MCV (80-98) fL MCH (27.0-33.0) pg MCHC (31.0-35.0) g/dl RDW (11.0-16.0) % Plt Count (160-400) X10*3/uL MPV (9.4-12.3) fL Immature Gran % (Auto) (0.0-0.4) % Neut % (Auto) (45-73) % Lymph % (Auto) (20-40) % [place] % (Auto) (2-11) % Eos % (Auto) (0-4) % Baso % (Auto) (0-2) % Lymph # (Auto) (1.2-4.9) X10*3/uL [place] # (Auto) (0.1-1.2) X10*3/uL Eos # (Auto) (0.0-0.4) X10*3/uL Baso # (Auto) (0.0-0.2) X10*3/uL Abs Immat Gran (auto) (0.00-0.03) X10*3/uL Absolute Neuts (auto) (2.0-8.3) X10*3/uL Absolute Nucleated RBC (0.0-0.012) X10*3/uL Nucleated RBC % (auto) (0.0-0.2) /100WBC Smear Tech's Comments PT 23.2 H (10.8-13.0) SEC INR 1.9 H (0.9-1.1) APTT 36.4 (24.1-38.0) SEC Sodium (135-145) mmol/L Potassium (3.3-5.1) mmol/L Chloride (96-108) mmol/L Carbon Dioxide (22-29) mmol/L Anion Gap (12-20) BUN (9-16) mg/dL Creatinine (0.5-1.4) mg/dL Estim Creat Clear Calc Estimated GFR Random Glucose (60-115) mg/dL Calcium (8.4-10.2) mg/dL Total Bilirubin (0.0-1.0) mg/dL AST (5-31) U/L ALT (0-31) U/L Alkaline Phosphatase (39-117) U/L B-Natriuretic Peptide 155 H (<100) pg/mL Total Protein (6.5-8.0) g/dL Albumin (3.5-5.0) g/dL Stool Occult Blood (NEG) Crossmatch See Detail ECG Data Attestation: I personally reviewed and interpreted this ECG as follows: Prior ECG tracings: available for review (05/19/2020 no acute changes on comparison) Interpretation: Atrial fibrillation, HR-109, QRS/QTC within normal limits. Discharge Plan Discharge Clinical Impression: JOVON (acute kidney injury), Thrombocytopenia GI (gastrointestinal bleed) Qualifiers: GI bleed type/associated pathology: unspecified gastrointestinal hemorrhage type Qualified Code(s): K92.2 - Gastrointestinal hemorrhage, unspecified Patient Disposition: Admitted As Inpatient
[2020-06-11 04:58] LABS: Hemoglobin 8.6 g/dl (12.0-16.0); Imm Gran Abs Auto 0.01 X10*3/uL (0.00-0.03); Imm Gran Pct Auto 0.3 % (0.0-0.4); Lymphocytes Absolute Auto 0.7 X10*3/uL (1.2-4.9); MANUAL DIFF FLAG SCAN; Mean Corpuscular HGB Conc 31.9 g/dl (31.0-35.0); Mean Corpuscular Hemoglobin 29.3 pg (27.0-33.0); Mean Corpuscular Volume 91.8 fL (80-98); Mean Platelet Volume 10.6 fL (9.4-12.3); Monocytes Absolute Auto 0.1 X10*3/uL (0.1-1.2); Monocytes Percent Auto 2.1 % (2-11); Neutrophils Absolute Auto 2.1 X10*3/uL (2.0-8.3); Neutrophils Percent Auto 73.6 % (45-73); Red Blood Count 2.94 X10*6/uL (4.20-5.50); Red Cell Distribution Width 16.4 % (11.0-16.0); SCAN SMEAR FLAG 1; White Blood Count 2.9 X10*3/uL (4.8-10.8)
[2020-06-11 05:00] LABS: Platelet Count 75 X10*3/uL (160-400)
[2020-06-11 05:03] LABS: OBS Int Ctl Valid YES; OBS1 POS (NEG)
[2020-06-11] MEDS: Metoprolol Tartrate 5 MG/5 ML VIAL 2.5 MG IVPUSH (05:22)
[2020-06-11 05:23] LABS: Alanine Aminotransferase 17 U/L (0-31); Albumin Level 3.3 g/dL (3.5-5.0); Alkaline Phosphatase 96 U/L (39-117); Anion Gap 17 (12-20); Aspartate Amino Transferase 27 U/L (5-31); Bilirubin Total 0.7 mg/dL (0.0-1.0); Blood Urea Nitrogen 41 mg/dL (9-16); Calcium 8.3 mg/dL (8.4-10.2); Carbon Dioxide 20 mmol/L (22-29); Chloride 108 mmol/L (96-108); Creatinine Clr Calc Pharmacy 12.5; Estimated Glomerular Filt Rate 17; Glucose Random 119 mg/dL (60-115); Potassium 4.7 mmol/L (3.3-5.1); Sodium 140 mmol/L (135-145); Total Protein 6.4 g/dL (6.5-8.0)
[2020-06-11 05:24] LABS: SLIDE REVIEW VERIFIED
[2020-06-11 05:26] LABS: B Type Natriuretic Peptide 155 pg/mL (<100)
[2020-06-11 06:07] LABS: INTERNATIONAL NORM RATIO 1.9 (0.9-1.1); Prothrombin Time 23.2 SEC (10.8-13.0)
[2020-06-11 06:09] LABS: Partial Thromboplastin Time 36.4 SEC (24.1-38.0)
[2020-06-11 06:42] LABS: IDNOW Serial# 9DD0AD1C
[2020-06-11 06:43] LABS: COVID-19 Test Negative (Negative)
--- NOTE | 2020-06-11 07:53 | PC.NURSE ---
DAUGHTER AT BEDSIDE. PT RESTING COMFORTABLY ON STRETCHER. BLOOD INFUSING WITHOUT DIFFICULTY. AWAITING HOSPITALIST FOR ADMISSION
[2020-06-11] MEDS: Levothyroxine Sodium 50 MCG TABLET PO (09:07)
[2020-06-11] MEDS: Metoprolol Tartrate 50 MG TABLET 25 MG PO ×2 (09:07→20:29)
[2020-06-11] MEDS: Amiodarone HCL 200 MG TABLET PO (09:08)
--- NOTE | 2020-06-11 09:23 | PC.NURSE ---
UP TO COMMODE WITH ASSIST. HAD SMALL BM MIXED WITH URINE. UNABLE TO OBTAINED URINE SPEC
--- NOTE | 2020-06-11 10:59 | PC.NURSE ---
CHANTAL DAUGHTER [phone]
--- NOTE | 2020-06-11 12:14 | PM.IMHP ---
History of Present Illness Date of Service: 06/11/20 Chief Complaint: gi bleed Hiistory taken from patient's daughter as patient speaks [place] 85-year-old female with multiple medical problems history of cervical cancer status post bilateral stent recently treated for acute kidney injury presented with lower GI bleed, per daughter patient was feeling weak since yesterday evening, patient also slid down on the floor did not hit her head and was feeling weak , patient's daughter helped her to put her back on bed, today morning patient went to bathroom and daughter noticed blood in stool, denies any fever chills sick contact , denies any nausea vomiting or diarrhea, patient is on Eliquis at home for atrial fibrillation. patient was brought to ER, in the ER stool for occult blood was positive, hemoglobin dropped from 10.2-8.6, patient was given 1 unit of PRBCs transfusion by ER physician, inpatient admission was requested for lower GI bleed Review of Systems Constitutional: Constitutional: Reports weakness ENT: Denies dry mouth Cardiovascular: Cardiovascular: Denies dyspnea Respiratory: Respiratory: Denies cough Gastrointestinal: Gastrointestinal: Denies nausea and Denies vomiting Musculoskeletal: Musculoskeletal: Reports arthralgias Neurologic: Denies focal weakness and Reports weakness PMFSH Medical History Anxiety Ramos's palsy Cervical cancer Congestive heart failure DVT (deep venous thrombosis) GERD (gastroesophageal reflux disease) Hydronephrosis Hypercholesterolemia Hypertension Lumbar degenerative disc disease Osteoarthritis Paroxysmal atrial fibrillation Peripheral vascular disease Vitamin D deficiency Functional capacity: uses cane/walker Family History Father Hypertension Stroke CVD (cardiovascular disease) Mother Hypoglycemia Surgical History H/O elbow surgery History of bladder surgery History of cholecystectomy Social History Household Members: None Housing: House Alcohol intake: never Smoking Status: Never smoker Second Hand Smoke Exposure: No Advance Directives: No Advance Directives Information Provided: No service: No Current occupational status: disabled Meds Allergies Allergy/AdvReac Type Severity Reaction Status Date / Time amlodipine [From NORVASC] Allergy Intermediate HIVES Verified 03/14/20 13:33 aspirin [ASA] Allergy Intermediate HIVES Verified 03/14/20 13:33 robert [ROBERT] Allergy Intermediate HIVES Verified 01/28/20 19:23 hydrochlorothiazide Allergy Unknown Hives Verified 03/14/20 13:33 gabapentin AdvReac Unknown dizziness Verified 03/14/20 13:33 lisinopril AdvReac Unknown Cough Verified 03/14/20 13:33 Active Medications: Current Medications Generic Name Dose Route Start Last Admin Trade Name Fremalika PRN Reason Stop Dose Admin Alprazolam 0.5 mg 06/11/20 08:43 Alprazolam 0.5 Mg Tablet PO BID PRN Anxiety Amiodarone HCl 200 mg 06/11/20 08:45 06/11/20 12:11 Amiodarone Hcl 200 Mg Tablet PO Not Given DAILY [facility] Clotrimazole 1 appl 06/11/20 21:00 Clotrimazole 1 % Vaginal Cream 45 Gm Tube VAGINAL 06/17/20 21:01 BEDTIME [facility] Levothyroxine Sodium 50 mcg 06/11/20 08:45 06/11/20 09:07 Levothyroxine Sodium 50 Mcg Tablet PO 50 mcg DAILY@0630 [facility] Administration Metoprolol Tartrate 25 mg 06/11/20 09:00 06/11/20 09:07 Metoprolol Tartrate 50 Mg Tablet PO 25 mg BID [facility] Administration Protocol Mirtazapine 7.5 mg 06/11/20 21:00 Mirtazapine 7.5 Mg Tablet PO BEDTIME [facility] Omeprazole 20 mg 06/11/20 12:08 Omeprazole 20 Mg Capsule.Dr PO DAILY@0630 [facility] Sodium Chloride 3 ml 06/11/20 16:00 0.9 % Sodium Chloride Flush 3 Ml Syringe IVFLUSH QSHIFT [facility] Home Medications Medication Instructions Recorded Confirmed Last Taken Type alprazolam 0.5 mg PO BID PRN 01/26/20 06/11/20 05/18/20 History Physical Exam Vital Signs and Narrative: Vital Signs: Last Vital Signs Temp 99.1 F 06/11/20 07:58 Pulse 118 H 06/11/20 09:08 Resp 18 06/11/20 09:07 BP 119/72 06/11/20 09:08 Pulse Ox 99 06/11/20 09:07 Body Mass Index 24.4 Const: General: tired appearing Eyes: General: appearance normal, both eyes and all related structures Chest: Chest palpation & inspection: normal inspection of the chest Resp: Effort & Inspection: normal respiratory effort Cardio: Jugular venous distension: no JVD GI: Palpation (GI): Soft to palpation and nontender Skin: General skin exam: no rashes or lesions noted Neuro: Motor exam (neuro): 5/5 motor strength present throughout Results Labs CBC and Chem 7: 06/11/20 13:34 06/11/20 04:49 Labs: Laboratory Results - last 24 hr 06/11/20 06/11/20 06/11/20 04:38 04:49 04:49 MCV 91.8 MCH 29.3 MCHC 31.9 RDW 16.4 H Plt Count 75 L D MPV 10.6 Immature Gran % (Auto) 0.3 Neut % (Auto) 73.6 H Lymph % (Auto) 23.0 [place] % (Auto) 2.1 Eos % (Auto) 1.0 Baso % (Auto) 0.0 Lymph # (Auto) 0.7 L [place] # (Auto) 0.1 Eos # (Auto) 0.0 Baso # (Auto) 0.0 Abs Immat Gran (auto) 0.01 Absolute Neuts (auto) 2.1 Absolute Nucleated RBC 0.000 Nucleated RBC % (auto) 0.0 Smear Tech's Comments VERIFIED PT INR APTT Anion Gap 17 Estim Creat Clear Calc 12.5 Estimated GFR 17 Random Glucose 119 H Calcium 8.3 L Total Bilirubin 0.7 AST 27 ALT 17 Alkaline Phosphatase 96 B-Natriuretic Peptide Total Protein 6.4 L Albumin 3.3 L Stool Occult Blood POS Coronavirus (PCR) COVID-19 ([place]) COVID-19 Clin Com Influenza Type A (PCR) Influenza Type B (PCR) RSV RNA Qual (PCR) Blood Type Antibody Screen Crossmatch 06/11/20 06/11/20 06/11/20 04:49 04:49 05:46 MCV MCH MCHC RDW Plt Count MPV Immature Gran % (Auto) Neut % (Auto) Lymph % (Auto) [place] % (Auto) Eos % (Auto) Baso % (Auto) Lymph # (Auto) [place] # (Auto) Eos # (Auto) Baso # (Auto) Abs Immat Gran (auto) Absolute Neuts (auto) Absolute Nucleated RBC Nucleated RBC % (auto) Smear Tech's Comments PT 23.2 H INR 1.9 H APTT 36.4 Anion Gap Estim Creat Clear Calc Estimated GFR Random Glucose Calcium Total Bilirubin AST ALT Alkaline Phosphatase B-Natriuretic Peptide 155 H Total Protein Albumin Stool Occult Blood Coronavirus (PCR) COVID-19 ([place]) COVID-19 Clin Com Influenza Type A (PCR) Influenza Type B (PCR) RSV RNA Qual (PCR) Blood Type A Positive Antibody Screen NEGATIVE Crossmatch See Detail 06/11/20 06/11/20 06:03 06:23 MCV MCH MCHC RDW Plt Count MPV Immature Gran % (Auto) Neut % (Auto) Lymph % (Auto) [place] % (Auto) Eos % (Auto) Baso % (Auto) Lymph # (Auto) [place] # (Auto) Eos # (Auto) Baso # (Auto) Abs Immat Gran (auto) Absolute Neuts (auto) Absolute Nucleated RBC Nucleated RBC % (auto) Smear Tech's Comments PT INR APTT Anion Gap Estim Creat Clear Calc Estimated GFR Random Glucose Calcium Total Bilirubin AST ALT Alkaline Phosphatase B-Natriuretic Peptide Total Protein Albumin Stool Occult Blood Coronavirus (PCR) Cancelled COVID-19 ([place]) Negative COVID-19 Clin Com See Note Influenza Type A (PCR) Cancelled Influenza Type B (PCR) Cancelled RSV RNA Qual (PCR) Cancelled Blood Type Antibody Screen Crossmatch Imaging Radiologist's Impressions: Impressions Abdomen/Pelvis CT 06/11/20 10:32 IMPRESSION: * Improved bilateral hydronephrosis, now moderate on the right and mild left with decreased caliber of the bilateral ureters. * New gas within the left upper pole renal collecting system, presumptively related to a small nondependent gas within the bladder. Correlate with recent instrumentation/catheterization. * Interval retraction of the distal end of the right nephroureteral stent which may reside within the distal ureter or retracted right posterolateral bladder wall. Assessment and Plan (1) GI (gastrointestinal bleed): Qualifiers: GI bleed type/associated pathology: unspecified gastrointestinal hemorrhage type Qualified Code(s): K92.2 - Gastrointestinal hemorrhage, unspecified Status: Acute (2) Thrombocytopenia: Status: Acute (3) Obstructive uropathy: Status: Acute (4) Anemia: Qualifiers: Anemia type: unspecified type Qualified Code(s): D64.9 - Anemia, unspecified Status: Acute (5) Congestive heart failure: Qualifiers: Heart failure chronicity: chronic Heart failure type: diastolic Qualified Code(s): I50.32 - Chronic diastolic (congestive) heart failure Status: Acute (6) Paroxysmal atrial fibrillation: Status: Acute (7) Hypothyroid: Qualifiers: Hypothyroidism type: acquired Qualified Code(s): E03.9 - Hypothyroidism, unspecified Status: Acute 85-year-old female recently discharged from hospital after being treated for acute on chronic kidney injury secondary to obstructive uropathy presented this time with lower GI bleed and weakness, patient on Eliquis at home for atrial fibrillation lower GI bleed acute blood loss anemia will hold Eliquis will start on gentle IV fluid watch for fluid overload given history of CHF received 1 unit of PRBCs in the ER monitor H&H closely gastroenterology consult Will start clear liquid paroxysmal AFib heart rate on higher side continue amiodarone and Lopressor hold Eliquis for GI bleed monitor on telemetry CHF - does not appear to be in acute exacerbation - continue Lasix CKD recently treated for acute kidney injury creatinine around 2.6 improved since last admission monitor kidney function avoid nephrotoxic history of cervical cancer obstructive uropathy status post stents DVT prophylax Venodyne given GI bleed code status discussed with patient and healthcare proxy patient wishes to be DNR DNI
--- NOTE | 2020-06-11 12:21 | PC.NURSE ---
BLOOD TRANSFUSION COMPLETE. REC'D CLEAR LIQUIDS ORDER FROM . AWAITING ROOM ASSIGNMENT. VS WNL. NO COMPLAINTS OFFERED.
[2020-06-11 13:43] LABS: MANUAL DIFF FLAG NO
[2020-06-11 13:46] LABS: Basophils Percent Auto 0.4 % (0-2); Eosinophils Percent Auto 1.4 % (0-4); Hematocrit 31.8 % (37-47); Hemoglobin 10.1 g/dl (12.0-16.0); Imm Gran Abs Auto 0.01 X10*3/uL (0.00-0.03); Imm Gran Pct Auto 0.4 % (0.0-0.4); Lymphocytes Absolute Auto 0.9 X10*3/uL (1.2-4.9); Lymphocytes Percent Auto 33.3 % (20-40); Mean Corpuscular HGB Conc 31.8 g/dl (31.0-35.0); Mean Corpuscular Hemoglobin 28.9 pg (27.0-33.0); Mean Corpuscular Volume 90.9 fL (80-98); Mean Platelet Volume 11.5 fL (9.4-12.3); Monocytes Absolute Auto 0.1 X10*3/uL (0.1-1.2); Monocytes Percent Auto 2.8 % (2-11); Neutrophils Absolute Auto 1.7 X10*3/uL (2.0-8.3); Neutrophils Percent Auto 61.7 % (45-73); Red Cell Distribution Width 15.8 % (11.0-16.0); White Blood Count 2.8 X10*3/uL (4.8-10.8)
[2020-06-11 13:48] LABS: Platelet Count 65 X10*3/uL (160-400)
--- NOTE | 2020-06-11 15:51 | PC.NURSE ---
patient was assisted to commode by this pct .
--- NOTE | 2020-06-11 16:15 | PC.NURSE ---
DAUGHTER GIVEN UPDATE. CALLED TO [facility] [place] FOR REPORT
--- NOTE | 2020-06-11 18:00 | PM.EVENT ---
Event Note Date of Service: 06/11/20 Event Note: GI Consult-Full note dictated-Hx via patient with medical imaging tech and from the EMR Imp: Self-limited lower GI bleed from probable perianal source in relation to thromocytopenia and elevated INR, along with use of Eliquis. Her recent use of Zyvox after her recent hospitalization probably contributing to her hematologic abnormalities. She has had no reported bleeding here and a rectal exam in the ER revealed hemorrhoids but no gross bleeding. Her abdominal exam is benign. Rec: Observe, hold Eliquis, give a dose of Vit K, follow up CBC's and PT/INR, and advance diet as tolerated. Check stool for Cdiff if she has diarrhea. I would hold off on a colonoscopy at the present time given her age and medical issues, as well as the presenting clinical picture. We can always proceed with a colonoscopy as an inpatient or outpatient if her clinical course requires it. Thanks
[2020-06-11] MEDS: Phytonadione (Vit K1) 5 MG in 0.9 % Sodium Chloride 50 ML 50.5 MG IV (18:43)
[2020-06-11] MEDS: ALPRAZolam 0.5 MG TABLET PO (20:29)
[2020-06-11] MEDS: Mirtazapine 7.5 MG TABLET PO (20:29)
[2020-06-11] MEDS: Clotrimazole 1 % Vaginal Cream 45 GM TUBE 1 APPL VAGINAL (20:33)
[2020-06-12] VITALS (8 sets, daily range): BP systolic 106–154; BP diastolic 66–92; PULSE 76–120; RESP 18–20; TEMP 36–37; O2SAT 97–99
[2020-06-12] MEDS: 0.9 % Sodium Chloride Flush 3 ML SYRINGE IVFLUSH ×4 (00:12→23:42)
--- NOTE | 2020-06-12 00:37 | CONS_ITS ---
DATE OF SERVICE: 06/11/2020 REASON FOR CONSULTATION: Reported hematochezia and anemia. 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 The patient is an 85-year-old female brought to the ER by her family early this morning for evaluation of some rectal bleeding. She apparently had some weakness and/or dizziness. In reviewing the ER physician's note, her digital rectal exam revealed only external hemorrhoids and no gross evidence of any blood in the rectal vault. There was some brown stool. She was somewhat more anemic with a hemoglobin of 8.6 compared to baseline and she received a unit of blood. She subsequently was admitted. According to the nursing staff, she has had no further signs of bleeding despite other bowel movements in the ER. The patient is presently very comfortable. She denies any abdominal pain. She has not had any nausea nor vomiting. She reports that she has been eating well at home. She has not noticed any further signs of bleeding nor any melena. She denies diarrhea. In reviewing her record, she was just discharged on May 26 and was discharged on Zyvox. Her hemoglobin at the time of discharge was 9.4. A followup hemoglobin was 10.2 on June 02 and her presenting hemoglobin early this morning was 8.6. Hemoglobin after 1 unit of blood was up to 10.1. Her white blood cell count was normal at 6000 and on June 02 was down to 2.9. The differential appeared normal. She also had a drop in her platelet count from 246,000 on June 02 to 75,000 this morning and 65,000 this afternoon. Her PT, INR were also elevated with INR 1.9 and PT 23.2 on her Eliquis. She does not appear to be any aspirin nor any other blood thinners. MEDICATIONS: At home included alprazolam, amiodarone, Eliquis, levothyroxine, metoprolol, mirtazapine, omeprazole, and the recent course of Zyvox. PAST MEDICAL HISTORY: Cholecystectomy. Atrial fibrillation. She denies any history of OH, stroke, nor diabetes. Other underlying medical problems include history of Ramos's palsy, reported CHF, reflux, hyperlipidemia, hypertension, and arthritis. SOCIAL HISTORY: She lives with a daughter. She does not smoke nor use any significant amounts of alcohol. PHYSICAL EXAMINATION: GENERAL: The patient is a pleasant alert, comfortable-appearing elderly female, in no distress. She answers questions appropriately. SKIN: Warm and dry. Anicteric sclerae. CHEST: Clear. CARDIAC: Normal S1, S2. ABDOMEN: Soft, nondistended, normal bowel sounds and nontender. There is no palpable mass. EXTREMITIES: Without edema. LABORATORY DATA: As above. Normal electrolytes. BUN 41, creatinine 2.6. Her BUN was 57, creatinine 3.2 on May 25. BUN was 30 with creatinine 2.6 on June 02. Blood sugar 119, total bilirubin 0.7, AST 27, ALT 17, alkaline phosphatase 96, albumin 3.3. COVID was negative. IMPRESSION: In regard to the patient's presentation with some bleeding, this seems to be very self-limited and most likely a perianal source of bleeding would be the etiology, such as hemorrhoids. I suspect her relative thrombocytopenia and elevated INR while on Eliquis would be contributing to this as well. At this point, she shows no signs of active bleeding. Given the clinical presentation, the elevated INR, and no further signs of active bleeding, I would be inclined to hold off on any type of endoscopic intervention at this time. I would continue to hold the Eliquis, give her a dose of vitamin K, and follow her CBC and PT with INR closely. At this point, I think her diet can be advanced given her good clinical appearance and no signs of active bleeding. If she happens to have diarrhea l would check a stool for C difficile given her recent course of antibiotics. Again, I would hold off on a colonoscopy at this point in time given her age, clinical history and medical issues. However, we can proceed with colonoscopy as an inpatient or outpatient if the clinical course requires that at some point in regard to persistent bleeding. Please call me if she has signs of recurrent bleeding while here in the hospital. Thank you for this consultation. MD COLLIN Lyons/JAZZ / [id number] MTDD
[2020-06-12] MEDS: Levothyroxine Sodium 50 MCG TABLET PO (05:43)
[2020-06-12] MEDS: Omeprazole 20 MG CAPSULE.DR PO (05:43)
[2020-06-12 06:52] LABS: Basophils Percent Auto 0.5 % (0-2); Eosinophils Absolute Auto 0.1 X10*3/uL (0.0-0.4); Hematocrit 33.9 % (37-47); Imm Gran Abs Auto 0.01 X10*3/uL (0.00-0.03); Imm Gran Pct Auto 0.5 % (0.0-0.4); Lymphocytes Absolute Auto 0.7 X10*3/uL (1.2-4.9); Lymphocytes Percent Auto 35.3 % (20-40); MANUAL DIFF FLAG SCAN; Mean Corpuscular HGB Conc 32.4 g/dl (31.0-35.0); Mean Corpuscular Hemoglobin 29.2 pg (27.0-33.0); Mean Corpuscular Volume 89.9 fL (80-98); Mean Platelet Volume 11.6 fL (9.4-12.3); Monocytes Absolute Auto 0.1 X10*3/uL (0.1-1.2); Neutrophils Absolute Auto 1.1 X10*3/uL (2.0-8.3); Neutrophils Percent Auto 55.7 % (45-73); Red Blood Count 3.77 X10*6/uL (4.20-5.50); Red Cell Distribution Width 15.9 % (11.0-16.0); SCAN SMEAR FLAG 1
[2020-06-12 07:03] LABS: INTERNATIONAL NORM RATIO 1.3 (0.9-1.1); Prothrombin Time 15.2 SEC (10.8-13.0)
[2020-06-12 07:06] LABS: Platelet Count 59 X10*3/uL (160-400)
[2020-06-12] MEDS: Amiodarone HCL 200 MG TABLET PO (07:47)
[2020-06-12] MEDS: Metoprolol Tartrate 50 MG TABLET 25 MG PO ×2 (07:47→20:52)
[2020-06-12 07:49] LABS: SLIDE REVIEW VERIFIED
--- NOTE | 2020-06-12 09:46 | MHC.CM.PN ---
spoke with pts sarath and hcp jeevan who confirms dc plan as home with resumption of starvos at 29 hrs a week p pt will have own transportaion home when she is dcd
--- NOTE | 2020-06-12 15:57 | P.PNIM_ITS ---
Subjective Subjective Date of Service: 06/12/20 Interval History: Seen in f/u for gib, no bleeding, h/h is better Gastrointestinal Gastrointestinal: Denies nausea and Denies vomiting Musculoskeletal Musculoskeletal: Reports arthralgias Neurologic Neurologic: Denies focal weakness Physical Exam 2 Vital Signs: Vital Signs: Last Vital Signs Temp 96.8 F 06/12/20 11:06 Pulse 76 06/12/20 11:06 Resp 18 06/12/20 11:06 BP 154/92 H 06/12/20 11:06 Pulse Ox 99 06/12/20 11:06 Body Mass Index 24.4 Eyes: General: appearance normal, both eyes and all related structures Chest: Chest palpation & inspection: normal inspection of the chest Resp: Effort & Inspection: normal respiratory effort Cardio: Jugular venous distension: no JVD GI: Palpation (GI): Soft to palpation and nontender Skin: General skin exam: no rashes or lesions noted Neuro: Motor exam (neuro): 5/5 motor strength present throughout Objective Data Current Medications Generic Name Dose Route Start Last Admin Trade Name Freq PRN Reason Stop Dose Admin Alprazolam 0.5 mg 06/11/20 08:43 06/11/20 20:29 Alprazolam 0.5 Mg Tablet PO 0.5 mg BID PRN Administration Anxiety Amiodarone HCl 200 mg 06/11/20 08:45 06/12/20 07:47 Amiodarone Hcl 200 Mg Tablet PO 200 mg DAILY ROBBIE Administration Clotrimazole 1 appl 06/11/20 21:00 06/11/20 20:33 Clotrimazole 1 % Vaginal Cream 45 Gm Tube VAGINAL 06/17/20 21:01 1 appl BEDTIME ROBBIE Administration Levothyroxine Sodium 50 mcg 06/11/20 08:45 06/12/20 05:43 Levothyroxine Sodium 50 Mcg Tablet PO 50 mcg DAILY@0630 ROBBIE Administration Metoprolol Tartrate 25 mg 06/11/20 09:00 06/12/20 07:47 Metoprolol Tartrate 50 Mg Tablet PO 25 mg BID ROBBIE Administration Protocol Mirtazapine 7.5 mg 06/11/20 21:00 06/11/20 20:29 Mirtazapine 7.5 Mg Tablet PO 7.5 mg BEDTIME ROBBIE Administration Omeprazole 20 mg 06/11/20 12:08 06/12/20 05:43 Omeprazole 20 Mg Capsule. PO 20 mg DAILY@0630 ROBBIE Administration Sodium Chloride 3 ml 06/11/20 16:00 06/12/20 07:47 0.9 % Sodium Chloride Flush 3 Ml Syringe IVFLUSH 3 ml QSHIFT ROBBIE Administration Labs CBC & Chem 7: 06/12/20 06:14 06/11/20 04:49 Assessment and Plan (1) GI (gastrointestinal bleed): Status: Acute (2) Thrombocytopenia: Status: Acute (3) Obstructive uropathy: Status: Acute (4) Anemia: Status: Acute (5) Congestive heart failure: Status: Acute (6) Paroxysmal atrial fibrillation: Status: Acute (7) Hypothyroid: Status: Acute Assessment and Plan: 85-year-old female recently discharged from hospital after being treated for acute on chronic kidney injury secondary to obstructive uropathy presented this time with lower GI bleed and weakness, patient on Eliquis at home for atrial fibrillation lower GI bleed--H/H is stable, eliquis is on hold, gi will do endoscopy if persistent bleed paroxysmal AFib--rate is controlled, anticoagulation on hold as stated CHF- - does not appear to be in acute exacerbation - continue Lasix CKD recently treated for acute kidney injury creatinine around 2.6 improved since last admission monitor kidney function avoid nephrotoxic history of cervical cancer obstructive uropathy status post stents DVT prophylax Venodyne given GI bleed code status discussed with patient and healthcare proxy patient wishes to be DNR DNI
[2020-06-12] MEDS: Mirtazapine 7.5 MG TABLET PO (20:52)
[2020-06-12] MEDS: Clotrimazole 1 % Vaginal Cream 45 GM TUBE 1 APPL VAGINAL (20:54)
[2020-06-13] VITALS (8 sets, daily range): BP systolic 99–135; BP diastolic 53–90; PULSE 95–114; RESP 16–18; TEMP 36.2–37; O2SAT 97–100
[2020-06-13] MEDS: Levothyroxine Sodium 50 MCG TABLET PO (06:04)
[2020-06-13] MEDS: Omeprazole 20 MG CAPSULE.DR PO (06:04)
[2020-06-13] MEDS: 0.9 % Sodium Chloride Flush 3 ML SYRINGE IVFLUSH ×3 (07:42→21:13)
[2020-06-13] MEDS: Amiodarone HCL 200 MG TABLET PO (09:24)
[2020-06-13] MEDS: Metoprolol Tartrate 50 MG TABLET 25 MG PO ×2 (09:24→20:57)
--- NOTE | 2020-06-13 12:17 | HO.PM.IMPN ---
Subjective Subjective Date of Service: 06/13/20 Interval History: Seen in f/u for gib, no bleeding, h/h is better, plat trending down as of yesterday Gastrointestinal Gastrointestinal: Denies nausea and Denies vomiting Musculoskeletal Musculoskeletal: Reports arthralgias Neurologic Neurologic: Denies focal weakness Physical Exam Vital Signs: Vital Signs: Last Vital Signs Temp 98.6 F 06/13/20 07:12 Pulse 100 06/13/20 09:24 Resp 18 06/13/20 07:12 BP 135/89 06/13/20 09:24 Pulse Ox 100 06/13/20 07:12 Body Mass Index 24.4 Eyes: General: appearance normal, both eyes and all related structures Chest: Chest palpation & inspection: normal inspection of the chest Resp: Effort & Inspection: normal respiratory effort Cardio: Jugular venous distension: no JVD GI: Palpation (GI): Soft to palpation and nontender Skin: General skin exam: no rashes or lesions noted Neuro: Motor exam (neuro): 5/5 motor strength present throughout Objective Data Current Medications Generic Name Dose Route Start Last Admin Trade Name Rufinoq PRN Reason Stop Dose Admin Alprazolam 0.5 mg 06/11/20 08:43 06/11/20 20:29 Alprazolam 0.5 Mg Tablet PO 0.5 mg BID PRN Administration Anxiety Amiodarone HCl 200 mg 06/11/20 08:45 06/13/20 09:24 Amiodarone Hcl 200 Mg Tablet PO 200 mg DAILY ROBBIE Administration Clotrimazole 1 appl 06/11/20 21:00 06/12/20 20:54 Clotrimazole 1 % Vaginal Cream 45 Gm Tube VAGINAL 06/17/20 21:01 1 appl BEDTIME ROBBIE Administration Levothyroxine Sodium 50 mcg 06/11/20 08:45 06/13/20 06:04 Levothyroxine Sodium 50 Mcg Tablet PO 50 mcg DAILY@0630 ROBBIE Administration Metoprolol Tartrate 25 mg 06/11/20 09:00 06/13/20 09:24 Metoprolol Tartrate 50 Mg Tablet PO 25 mg BID ROBBIE Administration Protocol Mirtazapine 7.5 mg 06/11/20 21:00 06/12/20 20:52 Mirtazapine 7.5 Mg Tablet PO 7.5 mg BEDTIME ROBBIE Administration Omeprazole 20 mg 06/11/20 12:08 06/13/20 06:04 Omeprazole 20 Mg Capsule. PO 20 mg DAILY@0630 ROBBIE Administration Sodium Chloride 3 ml 06/11/20 16:00 06/13/20 07:42 0.9 % Sodium Chloride Flush 3 Ml Syringe IVFLUSH 3 ml QSHIFT ROBBIE Administration Labs CBC & Chem 7: 06/12/20 06:14 06/11/20 04:49 Assessment and Plan (1) GI (gastrointestinal bleed): Status: Acute (2) Thrombocytopenia: Status: Acute (3) Obstructive uropathy: Status: Acute (4) Anemia: Status: Acute (5) Congestive heart failure: Status: Acute (6) Paroxysmal atrial fibrillation: Status: Acute (7) Hypothyroid: Status: Acute Assessment and Plan: 85-year-old female recently discharged from hospital after being treated for acute on chronic kidney injury secondary to obstructive uropathy presented this time with lower GI bleed and weakness, patient on Eliquis at home for atrial fibrillation Lower GI bleed--H/H is stable, eliquis is on hold, gi will do endoscopy if persistent bleed Pancytopenia with signficant drop in Platlets likely from recent use of Zyvox, Platlets has been trending down as of 06/13, hematology consult if Platlet paroxysmal AFib--rate is controlled, anticoagulation on hold as stated CHF- - does not appear to be in acute exacerbation - continue Lasix CKD recently treated for acute kidney injury creatinine around 2.6 improved since last admission monitor kidney function avoid nephrotoxic history of cervical cancer obstructive uropathy status post stents DVT prophylax Venodyne given GI bleed code status discussed with patient and healthcare proxy patient wishes to be DNR DNI
[2020-06-13 12:25] LABS: Hemoglobin 11.8 g/dl (12.0-16.0); Mean Corpuscular HGB Conc 32.8 g/dl (31.0-35.0); Mean Corpuscular Hemoglobin 29.5 pg (27.0-33.0); Mean Platelet Volume 11.3 fL (9.4-12.3); Red Cell Distribution Width 15.8 % (11.0-16.0); White Blood Count 2.6 X10*3/uL (4.8-10.8)
[2020-06-13 12:51] LABS: Platelet Count 56 X10*3/uL (160-400)
--- NOTE | 2020-06-13 13:37 | P.PNIM_ITS ---
Subjective Subjective Date of Service: 06/13/20 Interval History: Seen in f/u for gib, no bleeding, h/h is better, plat trending down as of yesterday Gastrointestinal Gastrointestinal: Denies nausea and Denies vomiting Musculoskeletal Musculoskeletal: Reports arthralgias Neurologic Neurologic: Denies focal weakness Physical Exam Vital Signs: Vital Signs: Last Vital Signs Temp 98.1 F 06/13/20 12:00 Pulse 106 H 06/13/20 12:00 Resp 16 06/13/20 12:00 BP 113/90 H 06/13/20 12:00 Pulse Ox 99 06/13/20 12:00 Body Mass Index 24.4 Eyes: General: appearance normal, both eyes and all related structures Chest: Chest palpation & inspection: normal inspection of the chest Resp: Effort & Inspection: normal respiratory effort Cardio: Jugular venous distension: no JVD GI: Palpation (GI): Soft to palpation and nontender Skin: General skin exam: no rashes or lesions noted Neuro: Motor exam (neuro): 5/5 motor strength present throughout Objective Data Current Medications Generic Name Dose Route Start Last Admin Trade Name Freq PRN Reason Stop Dose Admin Alprazolam 0.5 mg 06/11/20 08:43 06/11/20 20:29 Alprazolam 0.5 Mg Tablet PO 0.5 mg BID PRN Administration Anxiety Amiodarone HCl 200 mg 06/11/20 08:45 06/13/20 09:24 Amiodarone Hcl 200 Mg Tablet PO 200 mg DAILY ROBBIE Administration Clotrimazole 1 appl 06/11/20 21:00 06/12/20 20:54 Clotrimazole 1 % Vaginal Cream 45 Gm Tube VAGINAL 06/17/20 21:01 1 appl BEDTIME ROBBIE Administration Levothyroxine Sodium 50 mcg 06/11/20 08:45 06/13/20 06:04 Levothyroxine Sodium 50 Mcg Tablet PO 50 mcg DAILY@0630 ROBBIE Administration Metoprolol Tartrate 25 mg 06/11/20 09:00 06/13/20 09:24 Metoprolol Tartrate 50 Mg Tablet PO 25 mg BID ROBBIE Administration Protocol Mirtazapine 7.5 mg 06/11/20 21:00 06/12/20 20:52 Mirtazapine 7.5 Mg Tablet PO 7.5 mg BEDTIME ROBBIE Administration Omeprazole 20 mg 06/11/20 12:08 06/13/20 06:04 Omeprazole 20 Mg Capsule. PO 20 mg DAILY@0630 ROBBIE Administration Sodium Chloride 3 ml 06/11/20 16:00 06/13/20 07:42 0.9 % Sodium Chloride Flush 3 Ml Syringe IVFLUSH 3 ml QSHIFT ROBBIE Administration Labs CBC & Chem 7: 06/13/20 12:12 06/11/20 04:49 Assessment and Plan (1) GI (gastrointestinal bleed): Status: Acute (2) Thrombocytopenia: Status: Acute (3) Obstructive uropathy: Status: Acute (4) Anemia: Status: Acute (5) Congestive heart failure: Status: Acute (6) Paroxysmal atrial fibrillation: Status: Acute (7) Hypothyroid: Status: Acute Assessment and Plan: 85-year-old female recently discharged from hospital after being treated for acute on chronic kidney injury secondary to obstructive uropathy presented this time with lower GI bleed and weakness, patient on Eliquis at home for atrial fibrillation Lower GI bleed--H/H is stable, eliquis is on hold, gi will do endoscopy if persistent bleed Pancytopenia with signficant drop in Platlets likely from recent use of Zyvox, Platlets has been trending down as of 06/13, hematology consul since Platlets st ill trending down paroxysmal AFib--rate is controlled, anticoagulation on hold as stated CHF- - does not appear to be in acute exacerbation - continue Lasix CKD recently treated for acute kidney injury creatinine around 2.6 improved since last admission monitor kidney function avoid nephrotoxic history of cervical cancer obstructive uropathy status post stents DVT prophylax Venodyne given GI bleed code status discussed with patient and healthcare proxy patient wishes to be DNR DNI
--- NOTE | 2020-06-13 16:19 | P.CNHO_ITS ---
Subjective - Subjective Chief complaint: I feel fine Patient: new to practice Consult date: 06/13/20 Requesting Physician: Dr. Carvajal Primary Care Provider: Renu Simon MD HPI - Consult Narrative Reason for consult: Thrombocytopenia Narrative: Amrik Stephens is a 85 year old female Admitted on June 11 with weakness and lower GI bleed. She was recently discharged from the hospital end of April 2020 with acute kidney injury and bacteremia. She was taking Zyvox for several days. Her platelet counts were normal until 06/02/2020. On the current admission her platelet counts were noted to be 75 K, hemoglobin 8.6 gram/dL and WBC of 2.9. Her creatinine was at its baseline of 2.63. She was found to have heme-positive stools but no active bleeding. She was on Eliquis for her atrial fibrillation. She received a unit of blood on the , her hemoglobin has improved significantly, today it is 11.8 gram/dL. She has persistent leukopenia and thrombocytopenia. Patient states that she is feeling well and wants to go home. She denies any bruising or bleeding. She denies abdominal discomfort, nausea, chest pain or shortness of breath. Review of Systems - Constitutional Reports no additional constitutional complaints - Cardiovascular Reports no additional cardiovascular complaints - Respiratory Reports no additional respiratory complaints - Gastrointestinal Reports no additional gastrointestinal complaints - Neurologic Denies focal weakness, Reports weakness PMFSH Medical History: Medical History (Last Reviewed 06/11/20 @ 14:24 by Oli Spain MD) Anxiety Ramos's palsy Cervical cancer Congestive heart failure DVT (deep venous thrombosis) GERD (gastroesophageal reflux disease) Hydronephrosis Hypercholesterolemia Hypertension Lumbar degenerative disc disease Osteoarthritis Paroxysmal atrial fibrillation Peripheral vascular disease Vitamin D deficiency Functional capacity: uses cane/walker Family History: Family History (Last Reviewed 06/11/20 @ 14:25 by Oli Spain MD) Father Hypertension Stroke CVD (cardiovascular disease) Mother Hypoglycemia Surgical History: Surgical History (Last Reviewed 06/11/20 @ 14:25 by Oli Spain MD) H/O elbow surgery History of bladder surgery History of cholecystectomy Social History: Social History (Last Reviewed 06/11/20 @ 14:25 by Oli Spain MD) Living Situation History: Household Members: Family Housing: House Alcohol History: Alcohol intake: never Tobacco History: Second Hand Smoke Exposure: No Occupation Assessmet: service: No Current occupational status: disabled Smoking status: Never smoker Home Medications and Allergies Current Medications: Current Medications Generic Name Dose Route Start Last Admin Trade Name Freq PRN Reason Stop Dose Admin Alprazolam 0.5 mg 06/11/20 08:43 06/11/20 20:29 Alprazolam 0.5 Mg Tablet PO 0.5 mg BID PRN Administration Anxiety Amiodarone HCl 200 mg 06/11/20 08:45 06/13/20 09:24 Amiodarone Hcl 200 Mg Tablet PO 200 mg DAILY ROBBIE Administration Clotrimazole 1 appl 06/11/20 21:00 06/12/20 20:54 Clotrimazole 1 % Vaginal Cream 45 Gm Tube VAGINAL 06/17/20 21:01 1 appl BEDTIME ROBBIE Administration Levothyroxine Sodium 50 mcg 06/11/20 08:45 06/13/20 06:04 Levothyroxine Sodium 50 Mcg Tablet PO 50 mcg DAILY@0630 ROBBIE Administration Metoprolol Tartrate 25 mg 06/11/20 09:00 06/13/20 09:24 Metoprolol Tartrate 50 Mg Tablet PO 25 mg BID ROBBIE Administration Protocol Mirtazapine 7.5 mg 06/11/20 21:00 06/12/20 20:52 Mirtazapine 7.5 Mg Tablet PO 7.5 mg BEDTIME ROBBIE Administration Omeprazole 20 mg 06/11/20 12:08 06/13/20 06:04 Omeprazole 20 Mg Capsule.Dr PO 20 mg DAILY@0630 ROBBIE Administration Sodium Chloride 3 ml 06/11/20 16:00 06/13/20 07:42 0.9 % Sodium Chloride Flush 3 Ml Syringe IVFLUSH 3 ml QSHIFT ROBBIE Administration Allergies Allergy/AdvReac Type Severity Reaction Status Date / Time amlodipine [From [facility]] Allergy Intermediate HIVES Verified 03/14/20 13:33 aspirin [ASA] Allergy Intermediate HIVES Verified 03/14/20 13:33 robert [ROBERT] Allergy Intermediate HIVES Verified 01/28/20 19:23 hydrochlorothiazide Allergy Unknown Hives Verified 03/14/20 13:33 gabapentin AdvReac Unknown dizziness Verified 03/14/20 13:33 lisinopril AdvReac Unknown Cough Verified 03/14/20 13:33 Physical Exam Vital signs: Vital Signs Temp 98.1 F 06/13/20 12:00 Pulse 106 H 06/13/20 12:00 Resp 16 06/13/20 12:00 BP 113/90 H 06/13/20 12:00 Pulse Ox 99 06/13/20 12:00 Intake & Output 06/12/20 06/13/20 06/13/20 18:59 06:59 18:59 Intake Total 320 / 1070 750 / 1070 240 / 240 Output Total 275 / 575 300 / 575 350 / 350 Balance 45 / 495 450 / 495 -110 / -110 Urine Output (Average ml/kg/hr) 0.40 0.44 0.51 Intake: Intake, Oral Amount 320 / 1070 750 / 1070 240 / 240 Output: Output, Urine Amount 275 / 575 300 / 575 350 / 350 Other: Meal Refused No NPO No Breakfast % Eaten 75% Lunch % Eaten 75% 75% Dinner % Eaten 75% Urine Bathroom Bathroom Urine Color Yellow Yellow Stool Bathroom Weight 56.699 kg - Constitutional Present: no acute distress - Routine HEENT Exam Head: Present: normal inspection Eye: Present: EOMI - Routine Neck Exam Present: trachea midline - Routine Respiratory Exam Present: CTAB - Routine Cardiovascular Exam Cardiovascular: Present: S1, S2 - Routine Abdominal Exam Present: soft - Routine Extremities Exam Present: pulses intact. Absent: pedal edema Hem/Onc Consult Result - Labs CBC & Chem 7: 06/14/20 10:25 06/11/20 04:49 Labs: Short CBC 06/13/20 Range/Units 12:12 WBC 2.6 L (4.8-10.8) X10*3/uL Hgb 11.8 L (12.0-16.0) g/dl Hct 36.0 L (37-47) % Plt Count 56 L (160-400) X10*3/uL Assessment and Plan (1) Thrombocytopenia Status: Acute 1. This is a 85-year-old woman diagnosed with thrombocytopenia and leukopenia. She presented with mild pancytopenia and GI bleeding on June 11. She responded well to blood transfusion and holding Eliquis with recovery of her red blood cell count. She remains slightly leukopenic and thrombocytopenic which is probably still related to her recent use of linezolid. Platelet recovery time can take anywhere from a week to 2 weeks. Bleeding may be associated with thrombocytopenia in which case platelet transfusion is recommended. Sometimes IVIG and steroids may be required to treat the thrombocytopenia. The time course of platelet decline does not suggest heparin induced thrombocytopenia, TTP or myelophthisic process. Because of her underlying kidney disease she is at more risk for thrombocytopenia from linezolid. For now I would continue monitoring her CBC. No other intervention is necessary at this time as she is feeling well and her anemia has improved. I thank you for this consultation.
[2020-06-13] MEDS: ALPRAZolam 0.5 MG TABLET PO (20:57)
[2020-06-13] MEDS: Mirtazapine 7.5 MG TABLET PO (20:57)
[2020-06-13] MEDS: Clotrimazole 1 % Vaginal Cream 45 GM TUBE 1 APPL VAGINAL (21:15)
[2020-06-14 04:00] VITALS: BP 126/86; PULSE 103; RESP 18; TEMP 36.4; O2SAT 100
[2020-06-14] MEDS: Omeprazole 20 MG CAPSULE.DR PO (05:30)
[2020-06-14] MEDS: Levothyroxine Sodium 50 MCG TABLET PO (05:30)
[2020-06-14 07:30] VITALS: BP 118/78; PULSE 105; RESP 20; TEMP 36.5; O2SAT 100
[2020-06-14 08:19] VITALS: BP 118/78; PULSE 105
[2020-06-14] MEDS: Amiodarone HCL 200 MG TABLET PO (08:19)
[2020-06-14] MEDS: Metoprolol Tartrate 50 MG TABLET 25 MG PO (08:19)
[2020-06-14] MEDS: 0.9 % Sodium Chloride Flush 3 ML SYRINGE IVFLUSH (08:19)
--- NOTE | 2020-06-14 10:12 | PM.DS ---
DS: Providers Provider Date of Service: 08/26/20 Date of admission: 06/11/20 08:45 Primary care physician: Renu Simon MD Consults: 06/11/20 12:12 Consult to Gastroenterology Routine Consulting Provider: Shar Tyson Reason for consultation: GI bleed 06/13/20 13:36 Consult to Hematology / Oncology Routine Consulting Provider: Crista Aguirre Reason for consultation: Thrombocytopenia of unknown DS: Diagnosis Discharge Diagnosis (1) Thrombocytopenia: Status: Acute DS: Medications Discharge Medications Home Medications: Previous Rx's Medication Instructions Recorded amiodarone 200 mg tablet 200 mg PO DAILY 30 Days #30 tab 03/01/20 apixaban 2.5 mg tablet 2.5 mg PO BID 30 Days #60 tab 03/01/20 levothyroxine 50 mcg tablet 50 mcg PO QAM #30 tab 04/07/20 mirtazapine 7.5 mg tablet 7.5 mg PO BEDTIME #30 tab 05/04/20 metoprolol tartrate [Lopressor] 25 mg PO BID 30 Days #60 tab 05/26/20 omeprazole 20 mg PO DAILY@0630 #30 cap 05/26/20 miconazole nitrate 2 % vaginal 1 appful VAGINAL BEDTIME 7 Days 06/08/20 cream #45 g alprazolam 0.5 mg tablet 0.5 mg PO BID PRN #45 tab 06/12/20 DS: Summary Hospital Course Hospital Course: Hiistory taken from patient's daughter as patient speaks Kos[place] 85-year-old female with multiple medical problems history of cervical cancer status post bilateral stent recently treated for acute kidney injury presented with lower GI bleed, per daughter patient was feeling weak since yesterday evening, patient also slid down on the floor did not hit her head and was feeling weak , patient's daughter helped her to put her back on bed, today morning patient went to bathroom and daughter noticed blood in stool, denies any fever chills sick contact , denies any nausea vomiting or diarrhea, patient is on Eliquis at home for atrial fibrillation. Gpatient was brought to ER, in the ER stool for occult blood was positive, hemoglobin dropped from 10.2-8.6, patient was given 1 unit of PRBCs transfusion by ER physician, inpatient admission was requested for lower GI bleed Hospital course: GI likely from low platlet count and on Eliquis. GI saw her and recommended no intervention, H/H has been fairly stable and has not required transfusion and has not had further bleeding. Low platlets is attributed to recent use of Zyvox, she has has been seen by hematology and for is to be monitored and if worse can be considered for IVIG or steroid--it should be noted that platlelets count can take weeks to fully recover. Time Spent with Patient Time attestation: Total time spent providing and/or coordinating discharge services: Discharge coordination time: Greater than 30 minutes Physical Exam Vital Signs: Vital Signs: Last Vital Signs Temp 97.7 F 06/14/20 07:30 Pulse 105 H 06/14/20 08:19 Resp 20 06/14/20 07:30 BP 118/78 06/14/20 08:19 Pulse Ox 100 06/14/20 07:30 Body Mass Index 24.4 General: AO X 3, no acute distress Resp: CTA bilateral CVS: S1,S2,RRR GI: +BS, NT, no distention Skin: No rash, no [place] rash Neuro: motor grossly intact Psych: appropriate affect DS: Data Data Completed and Pending Completed studies during hospitalization [Text1]: Procedures Dilation of Left Ureter with Intraluminal Device, Via Natural or Artificial Opening Endoscopic (05/19/20) Dilation of Right Ureter with Intraluminal Device, Via Natural or Artificial Opening Endoscopic (05/19/20) Removal of Intraluminal Device from Ureter, Via Natural or Artificial Opening Endoscopic (05/19/20) Religious of Cardiac Rhythm, Single (01/26/20) Labs on day of discharge: Laboratory Results - last 24 hr 06/13/20 12:12 WBC 2.6 L RBC 4.00 L Hgb 11.8 L Hct 36.0 L MCV 90.0 MCH 29.5 MCHC 32.8 RDW 15.8 Plt Count 56 L MPV 11.3 Absolute Nucleated RBC 0.000 Nucleated RBC % (auto) 0.0 Discharge Plan Discharge Anticipated Discharge Date/Time: 06/14/20 10:08 Patient Disposition: Home, Self-Care Discharge Diagnosis: CHF, thrombocytopenia, Referrals: Alfred,Renu Ignacio MD [Primary Care Provider] - 1 Week (Sonya Howell 06/28/2020 10:15am. Please call and reschedule if you can't keep this appt) Discharge Medications: Continued amiodarone 200 mg tablet 200 mg PO DAILY 30 Days Qty: 30 RF: 5 levothyroxine 50 mcg tablet 50 mcg PO QAM Qty: 30 RF: 4 alprazolam 0.5 mg tablet 0.5 mg PO BID PRN (Reason: Anxiety) Qty: 45 RF: 0 omeprazole 20 mg Capsule,Delayed Release(Dr/Ec) 20 mg PO DAILY@0630 Qty: 30 RF: 0 Discontinued Eliquis 2.5 mg tablet 2.5 mg PO BID 30 Days Qty: 60 RF: 5 No Action oxycodone 5 mg tablet 5 mg PO TID PRN (Reason: pain) 7 Days Qty: 21 RF: 0 (DME) miscellaneous medical supply Misc See Rx Instructions .ROUTE .MEDSUPPLY Qty: 1 RF: 0 (DME) wheelchair See Rx Instructions .Route .MEDSUPPLY Qty: 1 RF: 0 metoprolol tartrate 25 mg tablet 25 mg PO BID RF: 0 mirtazapine 7.5 mg tablet 7.5 mg PO BEDTIME RF: 0 furosemide 20 mg Tablet 20 mg PO DAILY PRN (Reason: Edema) RF: 0 Ensure Liquid 1 ea PO AC RF: 0 cefuroxime axetil 250 mg tablet 250 mg PO BID 5 Days Qty: 10 RF: 0 Eliquis 2.5 mg tablet 2.5 mg PO BID RF: 0 Hold Instructions: Resume on 08/28/20. Discharge Orders: Discharge Order (Routine); Ordered 06/14/20 Ordered By: Mejia Carvajal Diet: advance to usual diet Activity on Discharge: As tolerated Stand Alone Forms: Patient Portal Discharge page Print Language: Latvian Visit Report Forms: Patient Portal Discharge page Care Plan Goals: Prevent further bleeding and anemia Health Concerns: Low platlets Plan of Treatment: Monitor platlet count, hold Eliquis for now. Repeat Plat level and restarting Eliquis when platlet is above 100 Assessment: See above Discharge Date/Time: 06/14/20 16:52
[2020-06-14 10:32] LABS: Mean Corpuscular Volume 90.1 fL (80-98); PLT CLUMP 1; Red Cell Distribution Width 15.5 % (11.0-16.0)
[2020-06-14 10:34] LABS: Hematocrit 31.8 % (37-47); Hemoglobin 10.2 g/dl (12.0-16.0); Mean Corpuscular HGB Conc 32.1 g/dl (31.0-35.0); Mean Corpuscular Hemoglobin 28.9 pg (27.0-33.0); Mean Platelet Volume 12.7 fL (9.4-12.3); Red Blood Count 3.53 X10*6/uL (4.20-5.50); White Blood Count 2.9 X10*3/uL (4.8-10.8)
[2020-06-14 10:37] LABS: Platelet Count 60 X10*3/uL (160-400)
--- NOTE | 2020-06-14 10:50 | MHC.CM.PN ---
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
[2020-06-14 11:00] VITALS: PULSE 104; RESP 20; TEMP 36.5; O2SAT 98
[2020-06-14 11:31] VITALS: BP 94/62
[2020-06-14 15:32] VITALS: BP 96/55; PULSE 101; RESP 19; TEMP 36.7; O2SAT 99
== END 2020-06-14 16:52 | disposition home or self-care (01) | DRG 378 ==
LOC: HO.ED 05:53 → HO.EDOVER 08:59 → HO.IMC 16:00
PROVIDERS: Internal Medicine; Admitting Provider Internal Medicine; Emergency Provider Student in an Organized Health Care Education/Training Program; PCP Internal Medicine; Visit Provider Internal Medicine
DX: K92.2 Gastrointestinal hemorrhage, unspecified (principal); I13.0 Hypertensive heart and chronic kidney disease with heart failure and stage 1 through stage 4 chronic kidney disease, or unspecified chronic kidney disease; I50.32 Chronic diastolic (congestive) heart failure; N17.9 Acute kidney failure, unspecified; D61.818 Other pancytopenia; I48.0 Paroxysmal atrial fibrillation; E03.9 Hypothyroidism, unspecified; N13.9 Obstructive and reflux uropathy, unspecified; N18.9 Chronic kidney disease, unspecified; R79.1 Abnormal coagulation profile; Z20.822 Contact with and (suspected) exposure to COVID-19; Z85.41 Personal history of malignant neoplasm of cervix uteri; Z88.6 Allergy status to analgesic agent; Z79.01 Long term (current) use of anticoagulants; Z79.890 Hormone replacement therapy; Z79.899 Other long term (current) drug therapy
CPT/HCPCS: 36415; 36430; 74176; 80053; 82272; 83880; 85025; 85027; 85060; 85610; 85730; 86850; 86900; 86901; 86923; 87635; 93005; 96374; 99204; 99284; J3430; P9016

== ENCOUNTER → 2020-06-19 09:04 | Outpatient (REF) | payer MEDICARE, MEDICAID, SELFPAY ==
--- NOTE | 2020-06-19 10:50 | ECG_ITS ---
Hook-up date: 2020-06-19 10:17:00 Duration: 28:45:00 Test Indications: PAF Medications: [id number] QRS complexes 2 Ventricular ectopics which represent <1 % of total QRS comp. * Supraventricular ectopics which represent % of total QRS comp. * Paced QRS complexs which represent % of total QRS comp. VENTRICULAR ECTOPY 2 Isolated 0 Bigeminal Cycles 0 Couplets 0 Runs 0 Beats in Runs * Beats LONGEST at * BPM at :: -- * Beats FASTEST at * BPM at :: -- SUPRAVENTRICULAR ECTOPY * Isolated * Couplets * Runs * Beats in Runs * Beats LONGEST at * BPM at :: -- * Beats FASTEST at * BPM at :: -- HEART RATES 63 MIN at 11:19:23 2020-06-19 111 AVG 143 MAX at 08:04:04 2020-06-20 LONGEST RR 1.7120 secs at 13:17:05 2020-06-19 S-T LEVELS Channel 1 - 128 mm at 10:17:00 2020-06-19 - 128 mm at 10:17:00 2020-06-19 Channel 2 - 128 mm at 10:17:00 2020-06-19 - 128 mm at 10:17:00 2020-06-19 Channel 3 - 128 mm at 02:93:61 -- - 128 mm at 02:93:61 Basic rhythm Atrial fibrillation with frequent with rapid ventricular response Rate inadequately controlled No diary submitted Referred By: Lesvia Wooten Overread By: LAURY CHRISTIANSON MD
== END ==
LOC: HO.CARD 09:04
PROVIDERS: PCP Internal Medicine; Visit Provider Nurse Practitioner Family
DX: I48.0 Paroxysmal atrial fibrillation (principal)
CPT/HCPCS: 93226

== ENCOUNTER → 2020-06-29 10:49 | Outpatient (BNVA) | payer MEDICARE, MEDICAID, SELFPAY | PROVIDERS: PCP Internal Medicine; Visit Provider Nurse Practitioner Family | DX: Z13.89 Encounter for screening for other disorder (principal) | CPT/HCPCS: Q3014 ==

== ENCOUNTER 2020-06-30 09:51 | Outpatient (REF) | payer MEDICARE, MEDICAID, SELFPAY ==
[2020-06-30 11:05] LABS: Glucose Urine UA NEG (NEG); Leukocyte Esterase Urine 2+ (NEG); Nitrite Urine POS (NEG); PH 6.5 (5.0-8.0); UACC Culture Trigger YES; Urine Blood 2+ (NEG); Urine Ketones NEG (NEG); Urine Protein 2+ MG/DL (NEG-TRACE)
[2020-06-30 11:06] LABS: MANUAL DIFF FLAG NO
[2020-06-30 11:08] LABS: Appearance Urine CLOUDY; Color Urine YELLOW
[2020-06-30 11:09] LABS: Basophils Percent Auto 0.2 % (0-2); Eosinophils Absolute Auto 0.1 X10*3/uL (0.0-0.4); Eosinophils Percent Auto 1.8 % (0-4); Hematocrit 32.1 % (37-47); Imm Gran Abs Auto 0.02 X10*3/uL (0.00-0.03); Imm Gran Pct Auto 0.4 % (0.0-0.4); Immature Retic Fraction 22.7 % (3.0-15.9); Lymphocytes Absolute Auto 1.2 X10*3/uL (1.2-4.9); Lymphocytes Percent Auto 22.9 % (20-40); Mean Corpuscular HGB Conc 31.2 g/dl (31.0-35.0); Mean Corpuscular Hemoglobin 29.8 pg (27.0-33.0); Mean Corpuscular Volume 95.5 fL (80-98); Mean Platelet Volume 10.3 fL (9.4-12.3); Monocytes Absolute Auto 0.4 X10*3/uL (0.1-1.2); Monocytes Percent Auto 8.7 % (2-11); Neutrophils Absolute Auto 3.3 X10*3/uL (2.0-8.3); Platelet Count 259 X10*3/uL (160-400); Red Blood Count 3.36 X10*6/uL (4.20-5.50); Red Cell Distribution Width 17.9 % (11.0-16.0); Retic HGB Equivalent 32.6 pg (30.0-35.0); Reticulocyte Percent 2.3 % (0.5-1.8); Reticulocytes Absolute 0.077 X10*6/uL (0.026-0.095); White Blood Count 5.1 X10*3/uL (4.8-10.8)
[2020-06-30 11:18] LABS: Bacteria Urine 4+ /LPF; Squamous Epithelial Cell Urine 1+ /LPF; WBC Urine 50-75 /HPF (0-4)
[2020-06-30 11:38] LABS: B Type Natriuretic Peptide 555 pg/mL (<100)
[2020-06-30 11:40] LABS: Alanine Aminotransferase 16 U/L (0-31); Albumin Level 3.1 g/dL (3.5-5.0); Alkaline Phosphatase 129 U/L (39-117); Anion Gap 11 (12-20); Aspartate Amino Transferase 23 U/L (5-31); Bilirubin Total 0.4 mg/dL (0.0-1.0); Blood Urea Nitrogen 27 mg/dL (9-16); Calcium 7.7 mg/dL (8.4-10.2); Carbon Dioxide 25 mmol/L (22-29); Chloride 107 mmol/L (96-108); Estimated Glomerular Filt Rate 27; Glucose Random 111 mg/dL (60-115); Iron 42 mcg/dL (30-160); Percent Iron Saturation 20 % (15-50); Potassium 4.6 mmol/L (3.3-5.1); Sodium 138 mmol/L (135-145); Total Iron Binding Capacity 215 mcg/dL (228-428); Total Protein 6.2 g/dL (6.5-8.0); Unsaturated Iron Binding 173 ug/dL
[2020-06-30 11:50] LABS: Thyroid Stimulating Hormone 1.99 uIU/mL (0.32-4.0)
[2020-06-30 11:53] LABS: Ferritin 231 ng/mL (10-250); Free T4 (Free Thyroxine) 1.18 ng/dL (0.71-1.85)
[2020-06-30 12:31] LABS: Folate 6.9 ng/mL (> or = 4.0); Vitamin B12 551 pg/mL (200-900)
== END 2020-06-30 09:52 | disposition home or self-care (01) ==
LOC: HO.LAB 09:51
PROVIDERS: Internal Medicine; Nurse Practitioner Family; Absent Provider Physician Assistant; PCP Internal Medicine; Visit Provider Internal Medicine
DX: I50.22 Chronic systolic (congestive) heart failure (principal); D64.9 Anemia, unspecified; N18.4 Chronic kidney disease, stage 4 (severe); E03.9 Hypothyroidism, unspecified; R35.0 Frequency of micturition; R31.9 Hematuria, unspecified; R30.0 Dysuria; N13.9 Obstructive and reflux uropathy, unspecified
CPT/HCPCS: 36415; 80053; 81001; 81003; 82607; 82728; 82746; 83540; 83880; 84439; 84443; 85025; 85045; 87086; 87088; 87186

== ENCOUNTER 2020-07-21 09:59 | Outpatient (REF) | payer MEDICARE, MEDICAID, SELFPAY ==
--- NOTE | ~2020-07-21 | XR_ITS ---
EXAMINATION: XR SHOULDER, LEFT CLINICAL INFORMATION: Pain COMPARISON: Previous x-ray March 2010 TECHNIQUE: AP external rotation, Grashey, scapular Y, and axillary views of the left shoulder. FINDINGS: Bone alignment is normal. No fracture or dislocation is seen. The glenohumeral joint is normal. 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 There is a small acromial osteophyte. Soft tissues are unremarkable. XR/XR shoulder LT min 2V IMPRESSION: Mild arthritis at the acromioclavicular joint and small acromial osteophyte.
--- NOTE | ~2020-07-21 | XR_ITS ---
EXAMINATION: XR RIBS, LEFT CLINICAL INFORMATION: Chest pain COMPARISON: Previous chest x-rays most recent December 2019 TECHNIQUE: 3 views of the left ribs and one view of the chest were obtained. FINDINGS: The cardiac silhouette is enlarged but stable. There is mitral annular calcification. There is a right jugular port with tip projecting over the SVC. There is new pleural and parenchymal change at the left lung base with increased linear peripheral lung markings and blunting of the left lateral costophrenic angle. The right lung is clear. There is no right pleural effusion. There is no pneumothorax. There are degenerative changes of the spine. There are are pigtail catheters likely representing the proximal end of bilateral internal ureteral stents. There are old-appearing left posterior fifth sixth and seventh rib fractures. No acute rib fracture is seen. XR/XR ribs LT min 3V w CXR1V IMPRESSION: New pleural and parenchymal disease at the left lung base. Old left-sided rib fractures. No acute fracture seen.
== END 2020-07-21 10:00 | disposition home or self-care (01) ==
LOC: HO.XRAY 09:59
PROVIDERS: PCP Internal Medicine; Visit Provider Internal Medicine
DX: R07.9 Chest pain, unspecified (principal); N13.9 Obstructive and reflux uropathy, unspecified
CPT/HCPCS: 71101; 73030

== ENCOUNTER 2020-07-23 09:42 | Emergency (ER) | payer MEDICARE, MEDICAID, SELFPAY ==
--- NOTE | ~2020-07-23 | CT_ITS ---
EXAMINATION: CT CHEST WITHOUT CONTRAST CLINICAL INFORMATION: Question pneumonia. Chest pain. New pleural-parenchymal changes on the left on chest x-ray COMPARISON: Previous chest and left rib x-rays 07/21/[address] September 2012 TECHNIQUE: Multidetector volumetric CT imaging of the chest was done. Axial MIP volume rendering provided. Sagittal and coronal reformatted images were obtained. This CT examination was performed using dose optimization techniques as appropriate, variously including the following: *Automated exposure control *Adjustment of mA and/or kV according to patient size (this includes techniques or standardized protocols for targeted exams where dose is matched to indication/reason for exam; i.e. extremities or head) *Use of iterative reconstruction technique DLP: 260 mGy-cm FINDINGS: LEGAL RESEARCHER: LUNGS: There is atelectasis or small infiltrate seen in the inferior segment of the lingula and left lower lobe. There is subsegmental atelectasis seen in the right lower lobe of the right lung base. Findings are new from previous chest CT from 2013. MEDIASTINUM: The heart is enlarged. There is mitral annular, coronary artery and aortic valve calcification. There is no pericardial effusion. The thoracic aorta is normal in caliber. There are small mediastinal lymph nodes. No enlarged lymph nodes are seen. PLEURA: There is a small left pleural effusion. There is a tiny right pleural effusion. There is no pneumothorax. AXILLA: No chest wall mass or enlarged axillary lymph nodes are seen. There is a right jugular port with tip projecting over the SVC. UPPER ABDOMEN: There is a left internal ureteral stent in the upper pole calyx.There is mild right hydronephrosis. There is a cyst in the upper pole of the right kidney. There is evidence of atherosclerotic disease. OSSEOUS STRUCTURES: There are acute left sixth through 10th posterior rib fractures. There are old left-sided rib fractures. There are are degenerative changes of the spine. CT/CT chest wo con IMPRESSION: Small left pleural effusion and lingular and left lower lobe atelectasis or small infiltrate. Minimal right pleural effusion and right lower lobe subsegmental atelectasis. No pneumothorax. Acute left posterior sixth through 10th rib fractures.
[2020-07-23 10:02] VITALS: BP 163/98; PULSE 103; RESP 16; TEMP 37.3; O2SAT 97; BMI 54.3
[2020-07-23] MEDS: oxyCODONE HCl Immed Release 5 MG TABLET PO (10:53)
[2020-07-23] MEDS: Acetaminophen 325 MG TABLET 975 MG PO (10:54)
--- NOTE | 2020-07-23 11:34 | ED.FALL ---
HPI - Fall General Chief Complaint: Back Pain/Injury Stated Complaint: fall - back pain Time Seen by Provider: 07/23/20 10:17 Source: patient and family (Daughter who speaks Azeri) Mode of arrival: ambulatory Limitations: language barrier (Setswana-speaking) History of Present Illness HPI Narrative: 85-year-old female who is mainly Setswana speaking with a past medical history of proximal atrial fibrillation currently on Eliquis and taking as prescribed, CHF, sinus bradycardia, cardiomyopathy, hypertension, hypercholesterolemia, CKD, thrombocytopenia, anemia, obstructive uropathy, hypothyroidism, GERD and anxiety presenting to the ED with her daughter complaints of persistent left posterior shoulder pain and left posterior rib cage pain since she had a mechanical fall on Friday worse today. Reports she had outpatient x-rays performed on Friday and have not received results therefore she came here for further evaluation and treatment. Reports that she has been taking [id number] Tylenol with no symptomatic relief. Daughter reports that the patient was at her other daughter's house and got caught on the rug falling over landing on her left shoulder/rib cage/back. Denies head injury or loss of consciousness. Denies any symptoms prior to the fall. MD complaint: fall Onset (ago): day(s) (Three days worse today) Fall from: standing Fall witnessed: yes, by family (By daughter) Place fall occurred: home (At the daughter's home) Loss of consciousness: none Prolonged down time: no Symptoms prior to fall: none Context: tripped/slipped Location of injury: other (Left shoulder/left rib cage/left back) Severity: moderate Quality: aching Associated symptoms (after fall): denies Related Data Home Medications Medication Instructions Recorded Confirmed apixaban 2.5 mg tablet 2.5 mg PO BID 07/03/20 07/20/20 Previous Rx's Medication Instructions Recorded amiodarone 200 mg tablet 200 mg PO DAILY 30 Days #30 tab 03/01/20 levothyroxine 50 mcg tablet 50 mcg PO QAM #30 tab 04/07/20 mirtazapine 7.5 mg tablet 7.5 mg PO BEDTIME #30 tab 05/04/20 omeprazole 20 mg PO DAILY@0630 #30 cap 05/26/20 miconazole nitrate 2 % vaginal 1 appful VAGINAL BEDTIME 7 Days 06/08/20 cream #45 g alprazolam 0.5 mg tablet 0.5 mg PO BID PRN #45 tab 06/12/20 metoprolol tartrate 25 mg tablet 25 mg PO TID 30 Days #90 tab 06/29/20 doxycycline hyclate 100 mg capsule 100 mg PO BID #14 cap 06/30/20 Allergies Allergy/AdvReac Type Severity Reaction Status Date / Time amlodipine [From [facility]] Allergy Intermediate HIVES Verified 06/23/20 12:13 aspirin [ASA] Allergy Intermediate HIVES Verified 06/23/20 12:13 robert [ROBERT] Allergy Intermediate HIVES Verified 01/28/20 19:23 hydrochlorothiazide Allergy Unknown Hives Verified 06/23/20 12:13 gabapentin AdvReac Unknown dizziness Verified 06/23/20 12:13 lisinopril AdvReac Unknown Cough Verified 06/23/20 12:13 Review of Systems Review of Systems: Constitutional : No changes in activity, No lethargy, No recent prior head injury, No agitation, No increased fussiness ENT/Mouth : No Ear Pain, No Nasal discharge/drainage Eyes: No Eye Pain, No Swelling, No Redness, No Foreign Body, No Vision Changes Cardiovascular : + Chest wall pain otherwise no additional chest pain, No SOB, No palpitations, No SOARES, No orthopnea Respiratory : No Cough Gastrointestinal : No Nausea, No Vomiting, No abdominal Pain Genitourinary : No Dysuria, No Urinary Frequency, No Urinary Incontinence, No Urgency, No Flank Pain Musculoskeletal : + joint pain, + back pain, No neck pain/stiffness Skin : No lacerations Neuro : No unsteady gait, No Paresthesias, No Loss of Consciousness, No altered mental status, No Headache, No Dizziness Yes all other systems are reviewed and are negative [facility] Past Medical History Attestation statement: The following information was validated with the patient. Medical History Anxiety Ramos's palsy Cervical cancer Congestive heart failure DVT (deep venous thrombosis) GERD (gastroesophageal reflux disease) Hydronephrosis Hypercholesterolemia Hypertension Lumbar degenerative disc disease Osteoarthritis Paroxysmal atrial fibrillation Peripheral vascular disease Vitamin D deficiency Surgical History H/O elbow surgery History of bladder surgery History of cholecystectomy Family History Family History Father Hypertension Stroke CVD (cardiovascular disease) Mother Hypoglycemia Social History Social History Household Members: Family Housing: House Alcohol intake: never Smoking Status: Never smoker Smoked in Last 30 Days: No Second Hand Smoke Exposure: No Use of substances other than those prescribed or required for medical reasons: No Advance Directives: Yes Advance Directives Information Provided: No Advance Directives on File: No service: No Current occupational status: disabled Physical Exam Vital Signs: Vital Signs: Last Vital Signs Temp 97.5 F 07/23/20 13:57 Pulse 98 07/23/20 13:57 Resp 16 07/23/20 13:57 BP 109/75 07/23/20 13:57 Pulse Ox 97 07/23/20 13:57 Body Mass Index 54.3 Vital signs have been reviewed as normal and appeared to be correct. Blood pressure hypertensive at 163/98. Heart rate tachycardic at 103. Respiration rate normal. Temperature normal. Oxygen saturation normal. Appearance: Alert. Oriented X3. No acute distress. Head: Normal external exam. Normocephalic. Atraumatic. Able to rotate head bilaterally. Eyes: PERRLA. EOMI. No nystagmus noted. Conjunctiva and sclera normal. Eyelids normal. Corneal reflex normal. ENT: EAC normal. TM's Normal. No septal hematoma noted. No hemotympanum noted. Hearing normal. Pharynx normal. Uvula midline. tongue midline. Moist mucous membranes. No trismus noted. No drooling noted. No muffled voice noted. No nystagmus noted. Neck: Normal inspection. Neck supple. FROM. Nontender mid cervical and bilateral paracervical musculature. No step-offs or deformities noted. No obvious trauma noted. No abrasions/lacerations/ecchymosis noted. No signs of infection. No adenopathy. Trachea midline. Thyroid Normal. No meningeal signs. No neck mass noted. CVS: Normal heart rate and rhythm. Heart sound normal. No murmurs noted. Pulses normal throughout. Respiratory: No respiratory distress. Painless inspiration. Breath sounds normal. No wheezes/rales/rhonchi noted. Patient with tender to palpation to lateral/posterior chest wall. No anterior chest wall pain. Not consistent with flail chest. No obvious deformities noted. No signs of infection/ecchymosis/abrasions or lacerations noted. No accessory muscle usage noted or decreased air movement noted. Abdomen: Soft and nontender. Bowel sounds normal in all 4 quadrants. No distention noted. No organomegaly noted. No visible injury noted. Back: Normal inspection. Nontender midthoracic/mid lumbar/para spinous musculature. No step-offs or deformities noted. No obvious trauma noted. No abrasion/laceration/ecchymosis or signs of infection noted. No CVA tenderness. Full range of motion noted. Skin: Skin warm and dry. Normal skin color. Normal skin turgor. No rashes/lesions/lacerations noted. Extremities: Patient was tender to palpation to left shoulder at the posterior aspect/scapula. No obvious deformities noted. Full range of motion of the left shoulder. No laxity is noted to the left shoulder. no calf tenderness noted. No lower extremity edema. Otherwise all other Extremities exhibit normal range of motion and nontender. Able to shrug shoulders bilaterally and keep up against resistance. Neuro: Oriented X 3. No motor deficit. No sensory deficit. Reflexes normal. Moving all extremities. No focal motor deficits. Cranial nerves II-XI intact bilaterally. Facial strength normal. Normal cognition. Speech normal. Gait normal. Strength 5/5 throughout. No pronator drift. No tremor noted. No fasciculations noted. No rigidity noted. Muscle tone normal throughout. No asterixis noted. Course Course Course Narrative: 10:35am - 85-year-old female with a past medical history of proximal atrial fibrillation currently on Eliquis and taking as prescribed, CHF, sinus bradycardia, cardiomyopathy, hypertension, hypercholesterolemia, CKD, thrombocytopenia, anemia, obstructive uropathy, hypothyroidism, GERD and anxiety presenting to the ED with her daughter complaints of persistent left posterior shoulder pain and left posterior rib cage pain since she had a mechanical fall on Friday worse today. - on exam patient is alert and oriented x3. In pain although not on any other acute distress. No focal neuro deficits are noted. Patient is neuro intact. No mid cervical or bilateral Cervical musculature pain. Patient has full range of motion of the neck. No stiffness. No obvious deformity step-offs or deformities noted. Lungs clear to auscultation. Patient has tender to palpation to left lateral lower/posterior chest wall pain. Abdomen is soft and nontender. Negative straight leg raise bilaterally. Patient is neuro intact bilateral and distally on all 4 extremities and reflexes intact bilaterally distally in all 4 extremities. - Plan: Will have [facility] read the outpatient x-rays of the ribs and the left shoulder ass that at this time provide symptomatic treatment with 975 mg of Tylenol and 5 mg of oxycodone and re-evaluate. Reevaluation(s) Reevaluation #1: - chest x-ray revealed New pleural and parenchymal disease at the left lung base. Old left-sided rib fractures. No acute fracture seen. - therefore I printed out a copy of the results and handed to the daughter and the patient explained the results - at this time I discussed this patient with Dr. Plummer and he is recommending have basic labs, EKG and a CT scan of chest without contrast to evaluate for any other acute processes and re-evaluate therefore at this time I explained this to the patient and the daughter and they understand agree with plan. Patient's pain is more controlled after the Tylenol and oxycodone. Time: 11:51 Reevaluation #2: - the patient's chemistry hemolyzed therefore redrawn at this time. - patient is with mild baseline anemia similar when compared to prior. - COVID/RSV/flu negative. - CT scan of chest without contrast revealed IMPRESSION: Small left pleural effusion and lingular and left lower lobe atelectasis or small infiltrate. Minimal right pleural effusion and right lower lobe subsegmental atelectasis. No pneumothorax. Acute left posterior sixth through 10th rib fractures. - therefore consulted with Trauma surgeon Dr. Morales and she recommended transferring the patient to [facility] ED to ED for further evaluation and treatment to monitor the patient for at least 24-48 hours due to the patient having acute left posterior 6th through 10th rib fractures. - I discussed this with the patient and her daughter at bedside and they understand and agree with the plan for transfer. Will set up transfer at this time despite the patient's chemistry being hemolyzed and pending at this time. Time: 13:55 MDM - Fall Medical Records Attestation: I reviewed the patient's medical records. Lab Data Attestation: I reviewed the patient's lab results. Result diagrams: 07/23/20 12:03 07/23/20 13:41 Labs: Lab Results 07/23/20 07/23/20 07/23/20 Range/Units 12:03 12:04 12:05 WBC 8.0 (4.8-10.8) X10*3/uL RBC 3.76 L (4.20-5.50) X10*6/uL Hgb 11.3 L (12.0-16.0) g/dl Hct 35.6 L (37-47) % MCV 94.7 (80-98) fL MCH 30.1 (27.0-33.0) pg MCHC 31.7 (31.0-35.0) g/dl RDW 17.6 H (11.0-16.0) % Plt Count 291 (160-400) X10*3/uL MPV 10.1 (9.4-12.3) fL Immature Gran % (Auto) 0.4 (0.0-0.4) % Neut % (Auto) 79.5 H (45-73) % Lymph % (Auto) 14.3 L (20-40) % Bucks % (Auto) 5.5 (2-11) % Eos % (Auto) 0.2 (0-4) % Baso % (Auto) 0.1 (0-2) % Lymph # (Auto) 1.2 (1.2-4.9) X10*3/uL Bucks # (Auto) 0.4 (0.1-1.2) X10*3/uL Eos # (Auto) 0.0 (0.0-0.4) X10*3/uL Baso # (Auto) 0.0 (0.0-0.2) X10*3/uL Abs Immat Gran (auto) 0.03 (0.00-0.03) X10*3/uL Absolute Neuts (auto) 6.4 (2.0-8.3) X10*3/uL Absolute Nucleated RBC 0.000 (0.0-0.012) X10*3/uL Nucleated RBC % (auto) 0.0 (0.0-0.2) /100WBC Hold Purple Top SEE NOTE PT 22.6 H D (10.8-13.0) SEC INR 1.9 H (0.9-1.1) Sodium (135-145) mmol/L Potassium (3.3-5.1) mmol/L Chloride (96-108) mmol/L Carbon Dioxide (22-29) mmol/L Anion Gap (12-20) BUN (9-16) mg/dL Creatinine (0.5-1.4) mg/dL Estim Creat Clear Calc Estimated GFR Random Glucose (60-115) mg/dL Calcium (8.4-10.2) mg/dL Magnesium (1.6-2.6) mg/dL Total Bilirubin (0.0-1.0) mg/dL Direct Bilirubin (0.0-0.5) mg/dL AST (5-31) U/L ALT (0-31) U/L Alkaline Phosphatase (39-117) U/L Troponin I High Sens (<3.5-17.0) ng/L Total Protein (6.5-8.0) g/dL Albumin (3.5-5.0) g/dL Coronavirus (PCR) (Negative) Influenza Type A (PCR) (Negative) Influenza Type B (PCR) (Negative) RSV RNA Qual (PCR) (Negative) 07/23/20 07/23/20 07/23/20 Range/Units 12:05 12:24 13:41 WBC (4.8-10.8) X10*3/uL RBC (4.20-5.50) X10*6/uL Hgb (12.0-16.0) g/dl Hct (37-47) % MCV (80-98) fL MCH (27.0-33.0) pg MCHC (31.0-35.0) g/dl RDW (11.0-16.0) % Plt Count (160-400) X10*3/uL MPV (9.4-12.3) fL Immature Gran % (Auto) (0.0-0.4) % Neut % (Auto) (45-73) % Lymph % (Auto) (20-40) % Bucks % (Auto) (2-11) % Eos % (Auto) (0-4) % Baso % (Auto) (0-2) % Lymph # (Auto) (1.2-4.9) X10*3/uL Bucks # (Auto) (0.1-1.2) X10*3/uL Eos # (Auto) (0.0-0.4) X10*3/uL Baso # (Auto) (0.0-0.2) X10*3/uL Abs Immat Gran (auto) (0.00-0.03) X10*3/uL Absolute Neuts (auto) (2.0-8.3) X10*3/uL Absolute Nucleated RBC (0.0-0.012) X10*3/uL Nucleated RBC % (auto) (0.0-0.2) /100WBC Hold Purple Top PT (10.8-13.0) SEC INR (0.9-1.1) Sodium 142 (135-145) mmol/L Potassium 4.6 (3.3-5.1) mmol/L Chloride 109 H (96-108) mmol/L Carbon Dioxide 24 (22-29) mmol/L Anion Gap 14 (12-20) BUN 25 H (9-16) mg/dL Creatinine 1.58 H (0.5-1.4) mg/dL Estim Creat Clear Calc 31.2 Estimated GFR 31 Random Glucose 116 H (60-115) mg/dL Calcium 7.8 L (8.4-10.2) mg/dL Magnesium 2.1 (1.6-2.6) mg/dL Total Bilirubin 0.6 (0.0-1.0) mg/dL Direct Bilirubin 0.2 (0.0-0.5) mg/dL AST 18 (5-31) U/L ALT 15 (0-31) U/L Alkaline Phosphatase 108 (39-117) U/L Troponin I High Sens 5.2 D (<3.5-17.0) ng/L Total Protein 5.7 L (6.5-8.0) g/dL Albumin 2.8 L (3.5-5.0) g/dL Coronavirus (PCR) NEGATIVE (Negative) Influenza Type A (PCR) NEGATIVE (Negative) Influenza Type B (PCR) NEGATIVE (Negative) RSV RNA Qual (PCR) NEGATIVE (Negative) Imaging Data Left rib cage x-ray: Attestation: I personally reviewed and interpreted this imaging study as follows: Radiologist's impression: FINDINGS: The cardiac silhouette is enlarged but stable. There is mitral annular calcification. There is a right jugular port with tip projecting over the SVC. There is new pleural and parenchymal change at the left lung base with increased linear peripheral lung markings and blunting of the left lateral costophrenic angle. The right lung is clear. There is no right pleural effusion. There is no pneumothorax. There are degenerative changes of the spine. There are are pigtail catheters likely representing the proximal end of bilateral internal ureteral stents. There are old-appearing left posterior fifth sixth and seventh rib fractures. No acute rib fracture is seen. XR/XR ribs LT min 3V w CXR1V IMPRESSION: New pleural and parenchymal disease at the left lung base. Old left-sided rib fractures. No acute fracture seen. 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 There is subsegmental atelectasis seen in the right lower lobe of the right lung base. Findings are new from previous chest CT from 2013. MEDIASTINUM: The heart is enlarged. There is mitral annular, coronary artery and aortic valve calcification. There is no pericardial effusion. The thoracic aorta is normal in caliber. There are small mediastinal lymph nodes. No enlarged lymph nodes are seen. PLEURA: There is a small left pleural effusion. There is a tiny right pleural effusion. There is no pneumothorax. AXILLA: No chest wall mass or enlarged axillary lymph nodes are seen. There is a right jugular port with tip projecting over the SVC. UPPER ABDOMEN: There is a left internal ureteral stent in the upper pole calyx.There is mild right hydronephrosis. There is a cyst in the upper pole of the right kidney. There is evidence of atherosclerotic disease. OSSEOUS STRUCTURES: There are acute left sixth through 10th posterior rib fractures. There are old left-sided rib fractures. There are are degenerative changes of the spine. CT/CT chest wo con IMPRESSION: Small left pleural effusion and lingular and left lower lobe atelectasis or small infiltrate. Minimal right pleural effusion and right lower lobe subsegmental atelectasis. No pneumothorax. Acute left posterior sixth through 10th rib fractures. ECG Data Attestation: I personally reviewed and interpreted this ECG as follows: ECG interpretation date: 07/23/20 ECG interpretation time: 13:06 Interpretation: Atrial fibrillation with rapid ventricular response with a ventricular rate of [address] and T-wave abnormalities similar when compared to prior EKG on 06/11/2020 no acute ischemic changes noted. Critical Care Time Critical Care Time Critical Care Time: Yes Total Critical Care Time: 60 Attestation: I personally attest to this time spent taking care of the patient Discharge Plan Discharge Clinical Impression: Fall, Multiple rib fractures involving four or more ribs, Pleural effusion on left Patient Disposition: [facility] Instructions: Rib Fracture (ED), Fall Prevention for Older Adults (ED), Pleural Effusion (ED) Prescriptions: No Action amiodarone 200 mg tablet 200 mg PO DAILY 30 Days Qty: 30 RF: 5 levothyroxine 50 mcg tablet 50 mcg PO QAM Qty: 30 RF: 4 mirtazapine 7.5 mg tablet 7.5 mg PO BEDTIME Qty: 30 RF: 2 Hold Instructions: hold until on linezolid. alprazolam 0.5 mg tablet 0.5 mg PO BID PRN (Reason: Anxiety) Qty: 45 RF: 0 metoprolol tartrate 25 mg tablet 25 mg PO TID 30 Days Qty: 90 RF: 5 doxycycline hyclate 100 mg capsule 100 mg PO BID Qty: 14 RF: 0 omeprazole 20 mg Capsule,Delayed Release(Dr/Ec) 20 mg PO DAILY@0630 Qty: 30 RF: 0 miconazole nitrate [Monistat 7] 2 % cream 1 appful vaginal BEDTIME 7 Days Qty: 45 RF: 0 Eliquis 2.5 mg tablet 2.5 mg PO BID RF: 0 Print Language: Setswana
--- NOTE | 2020-07-23 11:47 | ECG_ITS ---
Test Reason : PAIN Blood Pressure : / mmHG Vent. Rate : 104 BPM Atrial Rate : 115 BPM P-R Int : 000 ms QRS Dur : 090 ms QT Int : 360 ms P-R-T Axes : 000 -27 174 degrees QTc Int : 473 ms Atrial fibrillation with rapid ventricular response Anteroseptal infarct , age undetermined ST & T wave abnormality, consider lateral ischemia Abnormal ECG When compared to the previous EKG of No significant changes seen Referred By: Nancy Mueller Electronically Signed By:Abad Bishop
[2020-07-23 12:00] VITALS: BP 109/75; PULSE 98; RESP 16; TEMP 36.4
[2020-07-23 12:11] LABS: MANUAL DIFF FLAG NO
[2020-07-23 12:13] LABS: Basophils Percent Auto 0.1 % (0-2); Eosinophils Percent Auto 0.2 % (0-4); Hematocrit 35.6 % (37-47); Hemoglobin 11.3 g/dl (12.0-16.0); Imm Gran Abs Auto 0.03 X10*3/uL (0.00-0.03); Imm Gran Pct Auto 0.4 % (0.0-0.4); Lymphocytes Absolute Auto 1.2 X10*3/uL (1.2-4.9); Lymphocytes Percent Auto 14.3 % (20-40); Mean Corpuscular HGB Conc 31.7 g/dl (31.0-35.0); Mean Corpuscular Hemoglobin 30.1 pg (27.0-33.0); Mean Corpuscular Volume 94.7 fL (80-98); Mean Platelet Volume 10.1 fL (9.4-12.3); Monocytes Absolute Auto 0.4 X10*3/uL (0.1-1.2); Monocytes Percent Auto 5.5 % (2-11); Neutrophils Absolute Auto 6.4 X10*3/uL (2.0-8.3); Neutrophils Percent Auto 79.5 % (45-73); Platelet Count 291 X10*3/uL (160-400); Red Blood Count 3.76 X10*6/uL (4.20-5.50); Red Cell Distribution Width 17.6 % (11.0-16.0)
[2020-07-23 12:25] LABS: INTERNATIONAL NORM RATIO 1.9 (0.9-1.1); Prothrombin Time 22.6 SEC (10.8-13.0)
[2020-07-23 13:41] LABS: Influenza A PCR NEGATIVE (Negative); Influenza B PCR NEGATIVE (Negative); Resp Syncy Virus RNA Qual PCR NEGATIVE (Negative); SARS COV2 PCR INHOUSE NEGATIVE (Negative)
--- NOTE | 2020-07-23 13:56 | PC.NURSE ---
JAYNE ASTORGA IN CONTACT WITH [facility], DR MARIANO TO ACCEPT TRANSFER OF PATIENT R/T RESULTS OF CT SCAN +RIB FRACTURES
[2020-07-23 13:57] VITALS: BP 109/75; PULSE 98; RESP 16; TEMP 36.4; O2SAT 97
[2020-07-23 14:16] LABS: Alanine Aminotransferase 15 U/L (0-31); Albumin Level 2.8 g/dL (3.5-5.0); Alkaline Phosphatase 108 U/L (39-117); Anion Gap 14 (12-20); Aspartate Amino Transferase 18 U/L (5-31); Bilirubin Direct 0.2 mg/dL (0.0-0.5); Bilirubin Total 0.6 mg/dL (0.0-1.0); Blood Urea Nitrogen 25 mg/dL (9-16); Calcium 7.8 mg/dL (8.4-10.2); Carbon Dioxide 24 mmol/L (22-29); Chloride 109 mmol/L (96-108); Creatinine Clr Calc Pharmacy 31.2; Estimated Glomerular Filt Rate 31; Glucose Random 116 mg/dL (60-115); Magnesium 2.1 mg/dL (1.6-2.6); Potassium 4.6 mmol/L (3.3-5.1); Sodium 142 mmol/L (135-145); Total Protein 5.7 g/dL (6.5-8.0)
--- NOTE | 2020-07-23 14:28 | PC.NURSE ---
NURSE TO NURSE CALLED TO ANDRE PHILLIPS, PT AWAITING AMBULANCE TRANSPORT
[2020-07-23 14:39] LABS: Troponin-I High Sensitivity 5.2 ng/L (<3.5-17.0)
[2020-07-23] MEDS: LORazepam 0.5 MG TABLET PO (14:54)
== END 2020-07-23 15:05 | disposition short-term general hospital (02) ==
PROVIDERS: Physician Assistant Medical; Emergency Provider Emergency Medicine; PCP Internal Medicine
DX: S22.43XA Multiple fractures of ribs, bilateral, initial encounter for closed fracture (principal); J90 Pleural effusion, not elsewhere classified; R07.9 Chest pain, unspecified; I10 Essential (primary) hypertension; W01.0XXA Fall on same level from slipping, tripping and stumbling without subsequent striking against object, initial encounter; Y93.9 Activity, unspecified; Y92.009 Unspecified place in unspecified non-institutional (private) residence as the place of occurrence of the external cause; Y99.9 Unspecified external cause status; Z20.822 Contact with and (suspected) exposure to COVID-19; Z79.899 Other long term (current) drug therapy
CPT/HCPCS: 0241U; 36415; 71250; 80048; 80076; 83735; 84484; 85025; 85610; 93005; 99285; 99291

== ENCOUNTER 2020-08-22 13:17 | Inpatient (IN) | payer MEDICARE, MEDICAID, SELFPAY ==
--- NOTE | 2020-08-22 | ECG_ITS ---
Test Reason : DIZZINESS Blood Pressure : / mmHG Vent. Rate : 075 BPM Atrial Rate : 326 BPM P-R Int : 000 ms QRS Dur : 108 ms QT Int : 452 ms P-R-T Axes : 000 -31 112 degrees QTc Int : 504 ms Atrial tachycardia with variable conduction Left axis deviation Minimal voltage criteria for LVH, may be normal variant Possible Anterior infarct (cited on or before 11-JUN-2020) Abnormal ECG When compared with ECG of 23-JUL-2020 13:06, ST no longer depressed in Anterior leads T wave inversion less evident in Lateral leads Referred By: Generic ED Physician Electronically Signed By:LAURY CHRISTIANSON MD
--- NOTE | ~2020-08-22 | CT_ITS ---
EXAMINATION: CT HEAD WITHOUT CONTRAST CLINICAL INFORMATION: Falls. Confusion. COMPARISON: None. TECHNIQUE: Contiguous axial imaging was performed from the skull base to vertex without intravenous contrast. This CT examination was performed using dose optimization techniques as appropriate, variously including the following: * Automated exposure control * Adjustment of mA and/or kV according to patient size (this includes techniques or standardized protocols for targeted exams where dose is matched to indication/reason for exam; i.e. extremities or head) Use of iterative reconstruction technique DLP: 664 mGy-cm. FINDINGS: There is no evidence of acute intracranial hemorrhage or territorial infarction. No abnormal mass effect or midline shift is seen. Lopez to white matter differentiation is well preserved. No extra-axial fluid collections are identified. No hydrocephalus. Proportional prominence of the ventricles and sulcal spaces is consistent with mild volume loss. Patchy periventricular and deep white matter hypoattenuation is consistent with moderate small vessel ischemic changes. Subgaleal hematoma overlies the left parietal bone. No calvarial fracture. The mastoid air cells and visualized portions of the paranasal sinuses are well aerated. CT/CT head/brain wo con IMPRESSION: No acute intracranial pathology. Volume loss with small vessel ischemic change.
--- NOTE | ~2020-08-22 | CT_ITS ---
EXAMINATION: CT ABDOMEN AND PELVIS WITHOUT CONTRAST CLINICAL INFORMATION: Abdominal pain. Hydronephrosis. UTI. COMPARISON: CT from 06/11/2020 TECHNIQUE: Multidetector volumetric imaging was performed from the superior aspect of the liver through the pubic symphysis. Sagittal and coronal reformatted images were obtained on the technologist's workstation. This CT examination was performed using dose optimization techniques as appropriate, variously including the following: *Automated exposure control *Adjustment of mA and/or kV according to patient size (this includes techniques or standardized protocols for targeted exams where dose is matched to indication/reason for exam; i.e. extremities or head) *Use of iterative reconstruction technique DLP: 621 mGy-cm FINDINGS: LUNG BASES: Groundglass opacities at the lung bases with mild septal thickening. This may be associated with edema. Comment heart size with valvular calcifications. Dense coronary artery calcifications. LIVER, GALLBLADDER, AND BILIARY TREE: The liver is normal in size, shape, and attenuation. No focal hepatic lesion or biliary ductal dilatation is present. The gallbladder is clearly visualized and may be absent. PANCREAS: Mild atrophy of the pancreatic parenchyma with no focal abnormality. SPLEEN: Unremarkable. ADRENAL GLANDS: Unremarkable. KIDNEYS AND URETERS: The kidneys are normal in size, shape, and attenuation. There is moderate bilateral hydronephrosis. Bilateral ureteral stents are in place. The left ureteral stent terminates in the bladder. The right ureteral stent terminates in the region of the distal ureter, unchanged. BLADDER: Unremarkable. GASTROINTESTINAL TRACT: The stomach is unremarkable. Normal caliber small bowel. There is no obstruction. Scattered colonic diverticulosis without diverticulitis. Normal appendix. No free air. Trace pelvic free fluid. ABDOMINAL WALL: Fat-containing bilateral inguinal region hernias. LYMPH NODES: Normal. VASCULAR: Normal caliber aorta with mild atherosclerotic calcification throughout. PELVIC VISCERA: Calcifications along the uterus. No adnexal mass. OSSEOUS STRUCTURES: No acute or suspicious osseous abnormality. Degenerative changes throughout the spine. Mild degenerative changes of the hips. CT/CT abdomen pelvis wo con IMPRESSION: Groundglass opacities of the lung bases with septal thickening suggests mild edema. Moderate bilateral hydronephrosis. Ureteral stents are in place, with the right-sided stent not entering the bladder. This is unchanged from prior.
--- NOTE | ~2020-08-22 | XR_ITS ---
EXAMINATION: CHEST 1 VIEW CLINICAL INFORMATION: Weakness. COMPARISON: January 26, 2020. TECHNIQUE: An AP view of the chest is provided. FINDINGS: The cardiac silhouette is stable. Valvular calcifications are again identified. A port is in unchanged position. The mediastinal and hilar contours are unremarkable. There are neither pleural effusions nor pneumothoraces. There are no consolidations. The osseous structures are stable. XR/XR chest 1V IMPRESSION: No evidence for acute disease.
[2020-08-22 13:30] VITALS: BP 103/52; PULSE 77; RESP 18; TEMP 36.9; O2SAT 99; BMI 23.0
[2020-08-22 18:05] LABS: MANUAL DIFF FLAG NO
[2020-08-22 18:19] LABS: Basophils Percent Auto 0.1 % (0-2); Eosinophils Absolute Auto 0.1 X10*3/uL (0.0-0.4); Eosinophils Percent Auto 2.1 % (0-4); Hematocrit 28.2 % (37-47); Hemoglobin 8.9 g/dl (12.0-16.0); Imm Gran Abs Auto 0.04 X10*3/uL (0.00-0.03); Imm Gran Pct Auto 0.6 % (0.0-0.4); Lymphocytes Absolute Auto 1.4 X10*3/uL (1.2-4.9); Lymphocytes Percent Auto 20.7 % (20-40); Mean Corpuscular HGB Conc 31.6 g/dl (31.0-35.0); Mean Corpuscular Hemoglobin 30.4 pg (27.0-33.0); Mean Corpuscular Volume 96.2 fL (80-98); Mean Platelet Volume 9.3 fL (9.4-12.3); Monocytes Absolute Auto 0.4 X10*3/uL (0.1-1.2); Monocytes Percent Auto 6.4 % (2-11); Neutrophils Absolute Auto 4.8 X10*3/uL (2.0-8.3); Neutrophils Percent Auto 70.1 % (45-73); Platelet Count 430 X10*3/uL (160-400); Red Blood Count 2.93 X10*6/uL (4.20-5.50); White Blood Count 6.8 X10*3/uL (4.8-10.8)
[2020-08-22 18:28] LABS: Alanine Aminotransferase 55 U/L (0-31); Albumin Level 3.2 g/dL (3.5-5.0); Alkaline Phosphatase 209 U/L (39-117); Anion Gap 12 (12-20); Aspartate Amino Transferase 84 U/L (5-31); Bilirubin Total 0.2 mg/dL (0.0-1.0); Blood Urea Nitrogen 20 mg/dL (9-16); Calcium 7.9 mg/dL (8.4-10.2); Carbon Dioxide 23 mmol/L (22-29); Chloride 106 mmol/L (96-108); Estimated Glomerular Filt Rate 21; Glucose Random 97 mg/dL (60-115); Potassium 4.7 mmol/L (3.3-5.1); Sodium 136 mmol/L (135-145); Total Protein 6.6 g/dL (6.5-8.0)
[2020-08-22 20:26] LABS: INTERNATIONAL NORM RATIO 1.5 (0.9-1.1); Prothrombin Time 17.4 SEC (10.8-13.0)
[2020-08-22 20:28] LABS: Partial Thromboplastin Time 36.8 SEC (24.1-38.0)
[2020-08-22 20:37] LABS: COVID-19 Test Negative (Negative)
[2020-08-22] MEDS: 0.9 % Sodium Chloride 1,000 ML 999 ML IVCONT (20:43)
--- NOTE | 2020-08-22 20:54 | ED.DIZZY ---
HPI - Dizziness General Chief Complaint: Dizziness Stated Complaint: dizzines Time Seen by Provider: 08/22/20 19:34 Source: patient and family Mode of arrival: ambulatory Limitations: altered mental status (Dementia and cognitive impairment per baseline) History of Present Illness HPI Narrative: 85-year-old female who is mainly Georgian speaking with a past medical history of proximal atrial fibrillation on Eliquis, CHF, sinus bradycardia, cardiomyopathy, hypertension, hypercholesterolemia, CKD, thrombocytopenia, anemia, obstructive uropathy, hypothyroidism, GERD and anxiety presenting to the ED with her daughter for dizziness, hematuria, and multiple falls. Patient is being treated currently for UTI with Bactrim. MD elicited complaint: dizziness and difficulty walking Onset (ago): week(s) Timing: constant Severity: moderate Description: lightheadedness, off-balance and difficulty walking Context: change in body position History of similar symptoms: Yes Exacerbating factors: movement/ambulation and change in body position Relieving factors: nothing Associated symptoms: chills Stroke scale total: 0 Related Data Home Medications Medication Instructions Recorded Confirmed apixaban 2.5 mg tablet 2.5 mg PO BID 07/03/20 08/23/20 Previous Rx's Medication Instructions Recorded amiodarone 200 mg tablet 200 mg PO DAILY 30 Days #30 tab 03/01/20 levothyroxine 50 mcg tablet 50 mcg PO QAM #30 tab 04/07/20 omeprazole 20 mg PO DAILY@0630 #30 cap 05/26/20 miconazole nitrate 2 % vaginal 1 appful VAGINAL BEDTIME 7 Days 06/08/20 cream #45 g alprazolam 0.5 mg tablet 0.5 mg PO BID PRN #45 tab 06/12/20 metoprolol tartrate 25 mg tablet 25 mg PO TID 30 Days #90 tab 06/29/20 oxycodone 5 mg tablet 5 mg PO TID PRN 7 Days #21 tab 08/01/20 miscellaneous medical supply #1 ea 08/03/20 sulfamethoxazole 800 1 tab PO BID #14 tab 08/21/20 mg-trimethoprim 160 mg tablet wheelchair #1 ea 08/21/20 Allergies Allergy/AdvReac Type Severity Reaction Status Date / Time amlodipine [From NORVASC] Allergy Intermediate HIVES Verified 06/23/20 12:13 aspirin [ASA] Allergy Intermediate HIVES Verified 06/23/20 12:13 robert [ROBERT] Allergy Intermediate HIVES Verified 01/28/20 19:23 hydrochlorothiazide Allergy Unknown Hives Verified 06/23/20 12:13 gabapentin AdvReac Unknown dizziness Verified 06/23/20 12:13 lisinopril AdvReac Unknown Cough Verified 06/23/20 12:13 Review of Systems Review of Systems: Constitutional: No Fever, No Chills ENT/Mouth: No sore throat Eyes: No Eye Pain, No Swelling, No Redness Cardiovascular: No Chest Pain, No SOB Respiratory: No Cough, No Sputum, No Wheezing Gastrointestinal: No Nausea, no Vomiting, No Diarrhea, no abdominal pain Genitourinary: positive Dysuria, positive urinary frequency, positive Hematuria, no Flank Pain, no hesitancy Musculoskeletal: No joint pain, No Myalgias Skin: No Skin Lesions, No rash Neuro: Positive dizziness, Positive Weakness, No Numbness, No Headache Psych: No Anxiety/Panic, No Depression Heme/Lymph: No Bruising, No Lymphadenopathy Endocrine: No Polyuria, No Polydipsia Yes all other systems are reviewed and are negative [facility] Past Medical History Attestation statement: The following information was validated with the patient. Source: old records reviewed Medical History Anxiety Ramos's palsy Cervical cancer Congestive heart failure DVT (deep venous thrombosis) GERD (gastroesophageal reflux disease) Hydronephrosis Hypercholesterolemia Hypertension Lumbar degenerative disc disease Osteoarthritis Paroxysmal atrial fibrillation Peripheral vascular disease Vitamin D deficiency Surgical History H/O elbow surgery History of bladder surgery History of cholecystectomy Family History Family History Father Hypertension Stroke CVD (cardiovascular disease) Mother Hypoglycemia Social History Social History Household Members: Family Housing: House Alcohol intake: never Smoking Status: Never smoker Second Hand Smoke Exposure: No Advance Directives: No Advance Directives Information Provided: Yes service: No Current occupational status: disabled Physical Exam Vital Signs: Vital Signs: Last Vital Signs Temp 97.8 F 08/22/20 21:19 Pulse 85 08/22/20 21:19 Resp 16 08/22/20 21:19 BP 121/63 08/22/20 21:19 Pulse Ox 98 08/22/20 21:19 Body Mass Index 23.0 Appearance: Alert. Oriented X3. No acute distress. Eyes: Pupils equal, round and reactive to light. ENT: Pharynx normal. Neck: Normal inspection. Neck supple. CVS: Normal heart rate and rhythm. Pulses normal. Respiratory: No respiratory distress. Breath sounds normal. Abdomen: Soft and nontender. Skin: Skin warm and dry. Normal skin color. Normal skin turgor. Extremities: No lower extremity edema. Neuro: No motor deficit. No sensory deficit. Course Course Course Narrative: Patient presents with dizziness, multiple near falls, has had a history of falls in the past. Was admitted in May with rectal bleeding requiring 1 unit of transfusion. At this time H&H is 8.9/28.2 which is lower than her prior value of . Based on her significant history of bleeding, will order type and screen at this time. Urinalysis is pending. She is on Bactrim at this time for UTI. Platelet count of 430, significantly higher than her past values. BUN 20 consistent with prior values, creatinine 2.19 slightly higher than previous values however has had a history of 3.4 in April, does have stage 4 kidney disease. Creatinine clearance is 13.0. We will resuscitate with 1 L of fluid, however patient does have CHF and we will resuscitate fluid gently regardless of sepsis. Patient does have some transaminitis. Guaiac stool is negative. 10:40 p.m. Discussion with family regarding care, will order Case Management consult. Case Management will reach out to area facilities to try to increase services at home. Will order PT services evaluation. Urinalysis pending at this time. 1:00 a.m. patient continues to have gross hematuria, will transfuse at this time. Telephone discussion with daughter for consent, Dr Joshi as co-signer. 1:28 a.m. discussion with hospitalist regarding plan to admit for UTI, anemia requiring transfusion, with CT abdomen pending. Consultations Consultation #1: Abiel Time: 01:00 MDM - Dizziness MDM Narrative Medical decision making narrative: Anemia, JOVON, UTI, sepsis Differential Diagnosis Differential diagnosis: Likely orthostatic hypotension Medical Records Attestation: I reviewed the patient's medical records. Lab Data Attestation: I reviewed the patient's lab results. Result diagrams: 08/22/20 17:55 08/22/20 17:55 Labs: Lab Results 08/22/20 08/22/20 08/22/20 Range/Units 17:55 17:55 17:55 WBC 6.8 (4.8-10.8) X10*3/uL RBC 2.93 L D (4.20-5.50) X10*6/uL Hgb 8.9 L D (12.0-16.0) g/dl Hct 28.2 L D (37-47) % MCV 96.2 (80-98) fL MCH 30.4 (27.0-33.0) pg MCHC 31.6 (31.0-35.0) g/dl RDW 18.0 H (11.0-16.0) % Plt Count 430 H D (160-400) X10*3/uL MPV 9.3 L (9.4-12.3) fL Immature Gran % (Auto) 0.6 H (0.0-0.4) % Neut % (Auto) 70.1 (45-73) % Lymph % (Auto) 20.7 (20-40) % [place] % (Auto) 6.4 (2-11) % Eos % (Auto) 2.1 (0-4) % Baso % (Auto) 0.1 (0-2) % Lymph # (Auto) 1.4 (1.2-4.9) X10*3/uL [place] # (Auto) 0.4 (0.1-1.2) X10*3/uL Eos # (Auto) 0.1 (0.0-0.4) X10*3/uL Baso # (Auto) 0.0 (0.0-0.2) X10*3/uL Abs Immat Gran (auto) 0.04 H (0.00-0.03) X10*3/uL Absolute Neuts (auto) 4.8 (2.0-8.3) X10*3/uL Absolute Nucleated RBC 0.000 (0.0-0.012) X10*3/uL Nucleated RBC % (auto) 0.0 (0.0-0.2) /100WBC Hold Purple Top SEE NOTE PT (10.8-13.0) SEC INR (0.9-1.1) APTT (24.1-38.0) SEC Hold Blue Top SEE NOTE Sodium (135-145) mmol/L Potassium (3.3-5.1) mmol/L Chloride (96-108) mmol/L Carbon Dioxide (22-29) mmol/L Anion Gap (12-20) BUN (9-16) mg/dL Creatinine (0.5-1.4) mg/dL Estim Creat Clear Calc Estimated GFR Random Glucose (60-115) mg/dL Lactic Acid (0.5-2.0) mmol/L Calcium (8.4-10.2) mg/dL Total Bilirubin (0.0-1.0) mg/dL AST (5-31) U/L ALT (0-31) U/L Alkaline Phosphatase (39-117) U/L Total Protein (6.5-8.0) g/dL Albumin (3.5-5.0) g/dL Urine Color Urine Appearance Urine pH (5.0-8.0) Ur Specific Colgate (1.005-1.025) Urine Protein (NEG-TRACE) MG/DL Urine Glucose (UA) (NEG) MG/DL Urine Ketones (NEG) MG/DL Urine Blood (NEG) Urine Nitrite (NEG) Ur Leukocyte Esterase (NEG) Urine RBC (0) /HPF Urine WBC (0-4) /HPF Ur Squamous Epith Cells /LPF Urine Bacteria /LPF Stool Occult Blood (NEGATIVE) COVID-19 ([place]) (Negative) COVID-19 Clin Com Blood Type Antibody Screen Crossmatch 08/22/20 08/22/20 08/22/20 Range/Units 17:55 20:11 20:11 WBC (4.8-10.8) X10*3/uL RBC (4.20-5.50) X10*6/uL Hgb (12.0-16.0) g/dl Hct (37-47) % MCV (80-98) fL MCH (27.0-33.0) pg MCHC (31.0-35.0) g/dl RDW (11.0-16.0) % Plt Count (160-400) X10*3/uL MPV (9.4-12.3) fL Immature Gran % (Auto) (0.0-0.4) % Neut % (Auto) (45-73) % Lymph % (Auto) (20-40) % [place] % (Auto) (2-11) % Eos % (Auto) (0-4) % Baso % (Auto) (0-2) % Lymph # (Auto) (1.2-4.9) X10*3/uL [place] # (Auto) (0.1-1.2) X10*3/uL Eos # (Auto) (0.0-0.4) X10*3/uL Baso # (Auto) (0.0-0.2) X10*3/uL Abs Immat Gran (auto) (0.00-0.03) X10*3/uL Absolute Neuts (auto) (2.0-8.3) X10*3/uL Absolute Nucleated RBC (0.0-0.012) X10*3/uL Nucleated RBC % (auto) (0.0-0.2) /100WBC Hold Purple Top PT 17.4 H D (10.8-13.0) SEC INR 1.5 H (0.9-1.1) APTT 36.8 (24.1-38.0) SEC Hold Blue Top Sodium 136 (135-145) mmol/L Potassium 4.7 (3.3-5.1) mmol/L Chloride 106 (96-108) mmol/L Carbon Dioxide 23 (22-29) mmol/L Anion Gap 12 (12-20) BUN 20 H (9-16) mg/dL Creatinine 2.19 H (0.5-1.4) mg/dL Estim Creat Clear Calc 13.0 Estimated GFR 21 Random Glucose 97 (60-115) mg/dL Lactic Acid (0.5-2.0) mmol/L Calcium 7.9 L (8.4-10.2) mg/dL Total Bilirubin 0.2 (0.0-1.0) mg/dL AST 84 H (5-31) U/L ALT 55 H (0-31) U/L Alkaline Phosphatase 209 H D (39-117) U/L Total Protein 6.6 (6.5-8.0) g/dL Albumin 3.2 L (3.5-5.0) g/dL Urine Color Urine Appearance Urine pH (5.0-8.0) Ur Specific Colgate (1.005-1.025) Urine Protein (NEG-TRACE) MG/DL Urine Glucose (UA) (NEG) MG/DL Urine Ketones (NEG) MG/DL Urine Blood (NEG) Urine Nitrite (NEG) Ur Leukocyte Esterase (NEG) Urine RBC (0) /HPF Urine WBC (0-4) /HPF Ur Squamous Epith Cells /LPF Urine Bacteria /LPF Stool Occult Blood (NEGATIVE) COVID-19 ([place]) Negative (Negative) COVID-19 Clin Com See Note Blood Type Antibody Screen Crossmatch 08/22/20 08/22/20 08/22/20 Range/Units 20:51 20:59 22:09 WBC (4.8-10.8) X10*3/uL RBC (4.20-5.50) X10*6/uL Hgb (12.0-16.0) g/dl Hct (37-47) % MCV (80-98) fL MCH (27.0-33.0) pg MCHC (31.0-35.0) g/dl RDW (11.0-16.0) % Plt Count (160-400) X10*3/uL MPV (9.4-12.3) fL Immature Gran % (Auto) (0.0-0.4) % Neut % (Auto) (45-73) % Lymph % (Auto) (20-40) % [place] % (Auto) (2-11) % Eos % (Auto) (0-4) % Baso % (Auto) (0-2) % Lymph # (Auto) (1.2-4.9) X10*3/uL [place] # (Auto) (0.1-1.2) X10*3/uL Eos # (Auto) (0.0-0.4) X10*3/uL Baso # (Auto) (0.0-0.2) X10*3/uL Abs Immat Gran (auto) (0.00-0.03) X10*3/uL Absolute Neuts (auto) (2.0-8.3) X10*3/uL Absolute Nucleated RBC (0.0-0.012) X10*3/uL Nucleated RBC % (auto) (0.0-0.2) /100WBC Hold Purple Top PT (10.8-13.0) SEC INR (0.9-1.1) APTT (24.1-38.0) SEC Hold Blue Top Sodium (135-145) mmol/L Potassium (3.3-5.1) mmol/L Chloride (96-108) mmol/L Carbon Dioxide (22-29) mmol/L Anion Gap (12-20) BUN (9-16) mg/dL Creatinine (0.5-1.4) mg/dL Estim Creat Clear Calc Estimated GFR Random Glucose (60-115) mg/dL Lactic Acid (0.5-2.0) mmol/L Calcium (8.4-10.2) mg/dL Total Bilirubin (0.0-1.0) mg/dL AST (5-31) U/L ALT (0-31) U/L Alkaline Phosphatase (39-117) U/L Total Protein (6.5-8.0) g/dL Albumin (3.5-5.0) g/dL Urine Color PINK Urine Appearance CLOUDY Urine pH 7.0 (5.0-8.0) Ur Specific [place]gate 1.025 (1.005-1.025) Urine Protein 2+ H (NEG-TRACE) MG/DL Urine Glucose (UA) NEG (NEG) MG/DL Urine Ketones NEG (NEG) MG/DL Urine Blood 3+ H (NEG) Urine Nitrite NEG (NEG) Ur Leukocyte Esterase 2+ H (NEG) Urine RBC TNTC H (0) /HPF Urine WBC 50-75 H (0-4) /HPF Ur Squamous Epith Cells 1+ /LPF Urine Bacteria TRACE /LPF Stool Occult Blood NEGATIVE (NEGATIVE) COVID-[place] ([place] (Negative) COVID-19 Clin Com Blood Type A Positive Antibody Screen NEGATIVE Crossmatch See Detail 08/23/20 Range/Units 01:20 WBC (4.8-10.8) X10*3/uL RBC (4.20-5.50) X10*6/uL Hgb (12.0-16.0) g/dl Hct (37-47) % MCV (80-98) fL MCH (27.0-33.0) pg MCHC (31.0-35.0) g/dl RDW (11.0-16.0) % Plt Count (160-400) X10*3/uL MPV (9.4-12.3) fL Immature Gran % (Auto) (0.0-0.4) % Neut % (Auto) (45-73) % Lymph % (Auto) (20-40) % [place] % (Auto) (2-11) % Eos % (Auto) (0-4) % Baso % (Auto) (0-2) % Lymph # (Auto) (1.2-4.9) X10*3/uL [place] # (Auto) (0.1-1.2) X10*3/uL Eos # (Auto) (0.0-0.4) X10*3/uL Baso # (Auto) (0.0-0.2) X10*3/uL Abs Immat Gran (auto) (0.00-0.03) X10*3/uL Absolute Neuts (auto) (2.0-8.3) X10*3/uL Absolute Nucleated RBC (0.0-0.012) X10*3/uL Nucleated RBC % (auto) (0.0-0.2) /100WBC Hold Purple Top PT (10.8-13.0) SEC INR (0.9-1.1) APTT (24.1-38.0) SEC Hold Blue Top Sodium (135-145) mmol/L Potassium (3.3-5.1) mmol/L Chloride (96-108) mmol/L Carbon Dioxide (22-29) mmol/L Anion Gap (12-20) BUN (9-16) mg/dL Creatinine (0.5-1.4) mg/dL Estim Creat Clear Calc Estimated GFR Random Glucose (60-115) mg/dL Lactic Acid 1.4 (0.5-2.0) mmol/L Calcium (8.4-10.2) mg/dL Total Bilirubin (0.0-1.0) mg/dL AST (5-31) U/L ALT (0-31) U/L Alkaline Phosphatase (39-117) U/L Total Protein (6.5-8.0) g/dL Albumin (3.5-5.0) g/dL Urine Color Urine Appearance Urine pH (5.0-8.0) Ur Specific [place]gate (1.005-1.025) Urine Protein (NEG-TRACE) MG/DL Urine Glucose (UA) (NEG) MG/DL Urine Ketones (NEG) MG/DL Urine Blood (NEG) Urine Nitrite (NEG) Ur Leukocyte Esterase (NEG) Urine RBC (0) /HPF Urine WBC (0-4) /HPF Ur Squamous Epith Cells /LPF Urine Bacteria /LPF Stool Occult Blood (NEGATIVE) COVID-19 ([place]) (Negative) COVID-19 Clin Com Blood Type Antibody Screen Crossmatch Imaging Data CT scan - abdomen: Attestation: I personally reviewed and interpreted this imaging study as follows: Radiologist's impression: EXAMINATION: CT ABDOMEN AND PELVIS WITHOUT CONTRAST CLINICAL INFORMATION: Abdominal pain. Hydronephrosis. UTI. COMPARISON: CT from 06/11/2020 TECHNIQUE: Multidetector volumetric imaging was performed from the superior aspect of the liver through the pubic symphysis. Sagittal and coronal reformatted images were obtained on the technologist's workstation. This CT examination was performed using dose optimization techniques as appropriate, variously including the following: *Automated exposure control *Adjustment of mA and/or kV according to patient size (this includes techniques or standardized protocols for targeted exams where dose is matched to indication/reason for exam; i.e. extremities or head) *Use of iterative reconstruction technique DLP: 621 mGy-cm FINDINGS: LUNG BASES: Groundglass opacities at the lung bases with mild septal thickening. This may be associated with edema. Comment heart size with valvular calcifications. Dense coronary artery calcifications. LIVER, GALLBLADDER, AND BILIARY TREE: The liver is normal in size, shape, and attenuation. No focal hepatic lesion or biliary ductal dilatation is present. The gallbladder is clearly visualized and may be absent. PANCREAS: Mild atrophy of the pancreatic parenchyma with no focal abnormality. SPLEEN: Unremarkable. ADRENAL GLANDS: Unremarkable. KIDNEYS AND URETERS: The kidneys are normal in size, shape, and attenuation. There is moderate bilateral hydronephrosis. Bilateral ureteral stents are in place. The left ureteral stent terminates in the bladder. The right ureteral stent terminates in the region of the distal ureter, unchanged. BLADDER: Unremarkable. GASTROINTESTINAL TRACT: The stomach is unremarkable. Normal caliber small bowel. There is no obstruction. Scattered colonic diverticulosis without diverticulitis. Normal appendix. No free air. Trace pelvic free fluid. ABDOMINAL WALL: Fat-containing bilateral inguinal region hernias. LYMPH NODES: Normal. VASCULAR: Normal caliber aorta with mild atherosclerotic calcification throughout. PELVIC VISCERA: Calcifications along the uterus. No adnexal mass. OSSEOUS STRUCTURES: No acute or suspicious osseous abnormality. Degenerative changes throughout the spine. Mild degenerative changes of the hips. CT/CT abdomen pelvis wo con IMPRESSION: Groundglass opacities of the lung bases with septal thickening suggests mild edema. Moderate bilateral hydronephrosis. Ureteral stents are in place, with the right-sided stent not entering the bladder. This is unchanged from prior. CT scan - head: Attestation: I personally reviewed and interpreted this imaging study as follows: Radiologist's impression: EXAMINATION: CT HEAD WITHOUT CONTRAST CLINICAL INFORMATION: Falls. Confusion. COMPARISON: None. TECHNIQUE: Contiguous axial imaging was performed from the skull base to vertex without intravenous contrast. This CT examination was performed using dose optimization techniques as appropriate, variously including the following: * Automated exposure control * Adjustment of mA and/or kV according to patient size (this includes techniques or standardized protocols for targeted exams where dose is matched to indication/reason for exam; i.e. extremities or head) Use of iterative reconstruction technique DLP: 664 mGy-cm. FINDINGS: There is no evidence of acute intracranial hemorrhage or territorial infarction. No abnormal mass effect or midline shift is seen. Lopez to white matter differentiation is well preserved. No extra-axial fluid collections are identified. No hydrocephalus. Proportional prominence of the ventricles and sulcal spaces is consistent with mild volume loss. Patchy periventricular and deep white matter hypoattenuation is consistent with moderate small vessel ischemic changes. Subgaleal hematoma overlies the left parietal bone. No calvarial fracture. The mastoid air cells and visualized portions of the paranasal sinuses are well aerated. CT/CT head/brain wo con IMPRESSION: No acute intracranial pathology. Volume loss with small vessel ischemic change. Chest x-ray: Attestation: I personally reviewed and interpreted this imaging study as follows: Radiologist's impression: EXAMINATION: CHEST 1 VIEW CLINICAL INFORMATION: Weakness. COMPARISON: January 26, 2020. TECHNIQUE: An AP view of the chest is provided. FINDINGS: The cardiac silhouette is stable. Valvular calcifications are again identified. A port is in unchanged position. The mediastinal and hilar contours are unremarkable. There are neither pleural effusions nor pneumothoraces. There are no consolidations. The osseous structures are stable. XR/XR chest 1V IMPRESSION: No evidence for acute disease. ECG Data Attestation: I personally reviewed and interpreted this ECG as follows: ECG interpretation date: 08/22/20 ECG interpretation time: 13:50 Prior ECG tracings: available for review Interpretation: Vent. rate 75 BPM MA interval * ms QRS duration 108 ms QT/QTc 452/504 ms P-R-T axes * -31 112 Atrial fibrillation Left axis deviation Minimal voltage criteria for LVH, may be normal variant Possible Anterior infarct (cited on or before 11-JUN-2020) Abnormal ECG When compared with ECG of 23-JUL-2020 13:06, ST no longer depressed in Anterior leads T wave inversion less evident in Lateral leads Critical Care Time Critical Care Time Critical Care Time: Yes Total Critical Care Time: 65 Attestation: I have personally provided critical care time exclusive of time spent on separately billable procedures. Time includes review of laboratory data, radiology results, discussion with consultants, and monitoring for potential decompensation. Interventions were performed as documented. Discharge Plan Discharge Clinical Impression: Chronic systolic CHF (congestive heart failure), Chronic kidney disease, stage 4 (severe) Urinary tract infection Qualifiers: Urinary tract infection type: acute cystitis Hematuria presence: with hematuria Qualified Code(s): N30.01 - Acute cystitis with hematuria Hematuria Qualifiers: Hematuria type: gross Qualified Code(s): R31.0 - Gross hematuria Patient Disposition: Admitted As Inpatient
[2020-08-22 21:04] LABS: OBS Int Ctl Valid YES; OBS1 NEGATIVE (NEGATIVE)
[2020-08-22 21:19] VITALS: BP 121/63; PULSE 85; RESP 16; TEMP 36.6; O2SAT 98
[2020-08-22 22:16] LABS: Glucose Urine UA NEG (NEG); Leukocyte Esterase Urine 2+ (NEG); Nitrite Urine NEG (NEG); Specific Gravity - Urine 1.025 (1.005-1.025); UACC Culture Trigger YES; Urine Blood 3+ (NEG); Urine Ketones NEG (NEG); Urine Protein 2+ MG/DL (NEG-TRACE)
[2020-08-22 22:17] LABS: Appearance Urine CLOUDY; Color Urine PINK
[2020-08-22 22:22] LABS: Bacteria Urine TRACE /LPF; RBC Urine TNTC /HPF (0); Squamous Epithelial Cell Urine 1+ /LPF; WBC Urine 50-75 /HPF (0-4)
--- NOTE | 2020-08-22 23:17 | MHC.CM.ED ---
CM met with pt daughter, Alina Santamaria ([phone]) who speaks Estonian. Pt is Kyrgyz speaking and has dementia. Family provides 24/7 care for pt presently, with help of [facility]. Daughter tells me she needs more services and will speak with provider about increasing [facility] hours. Presently, they only have 29 hours/week. Daughter would like to keep her mother home. Pt lives alone with family coming into her home. Pt recently had PT services and was recently d/c'd secondary to recent falls. Pt has had 2 falls in about 3 weeks. Daughter not yet ready to place her mother in a residential, but did request information about local SNF so she can research them. Given listing of SNF within 10 miles. Daughter will check with PCP in am about more hours with [facility] to help the family care for her at home. Pt to have PT consult in am. Family interested in home PT again if recommended. CM to follow for d/c needs.
--- NOTE | 2020-08-22 23:41 | PC.NURSE ---
Report received. PT is resting in bed. Respirations even and unlabored, in no apparent distress. PT to be assessed by case management.
[2020-08-23] VITALS (12 sets, daily range): BP systolic 120–156; BP diastolic 58–81; PULSE 79–90; RESP 16–20; TEMP 36–36.7; O2SAT 96–100
--- NOTE | 2020-08-23 01:38 | PM.IMHP ---
History of Present Illness Date of Service: 08/23/20 Chief Complaint: Confusion 85-year-old female with a past medical history of hypertension, hyperlipidemia, CHF, AFib on Eliquis, anxiety, peripheral vascular disease, history of cervical cancer, history of DVT, lives with the family presented to the hospital with chief complaint of confusion. Most of the history obtained from the patient's daughter -Alina and ER staff. Reportedly patient has been confused lately and has been having increased falls but the daughter stood behind the patient and I had her and patient did not land on the ground. Denies any loss of consciousness. Denies any chest pain or palpitations. Patient's daughter mentioned that she took her to the PCP yesterday and was started on Bactrim for a UTI. Also reported that patient had hematuria for the past couple days. And she has stents in place for the hydronephrosis and which were replaced about a month ago. Denies any trouble swallowing or eating. Dependent on ADLs. Review of all other systems is negative except mentioned above ER course: Per ER team patient exam was grossly nonfocal, CT head pending, noted to have gross hematuria and slight drop in hemoglobin. Urinalysis was abnormal consistent with UTI-given antibiotics. CT abdomen pending to check for hydronephrosis. Admitted for further management. [facility] Medical History (Updated 08/23/20 @ 13:22 by Moshe Pugh MD) Anxiety Ramos's palsy Cervical cancer Congestive heart failure DVT (deep venous thrombosis) GERD (gastroesophageal reflux disease) Hydronephrosis Hypercholesterolemia Hypertension Lumbar degenerative disc disease Obstructive uropathy Osteoarthritis Paroxysmal atrial fibrillation Peripheral vascular disease Vitamin D deficiency Family History Father Hypertension Stroke CVD (cardiovascular disease) Mother Hypoglycemia Surgical History H/O elbow surgery History of bladder surgery History of cholecystectomy Social History Household Members: Family Housing: Apartment Alcohol intake: never Smoking Status: Never smoker Second Hand Smoke Exposure: No service: No Current occupational status: disabled Meds Allergies Allergy/AdvReac Type Severity Reaction Status Date / Time amlodipine [From NORVASC] Allergy Intermediate HIVES Verified 06/23/20 12:13 aspirin [ASA] Allergy Intermediate HIVES Verified 06/23/20 12:13 robert [ROBERT] Allergy Intermediate HIVES Verified 01/28/20 19:23 hydrochlorothiazide Allergy Unknown Hives Verified 06/23/20 12:13 gabapentin AdvReac Unknown dizziness Verified 06/23/20 12:13 lisinopril AdvReac Unknown Cough Verified 06/23/20 12:13 Active Medications: Current Medications Generic Name Dose Route Start Last Admin Trade Name Freq PRN Reason Stop Dose Admin Ceftriaxone Sodium 1 gm/ 50 mls @ 100 mls/hr 08/23/20 01:30 Sodium Chloride IV Q24H ROBBIE Home Medications Medication Instructions Recorded Confirmed Last Taken Type apixaban 2.5 mg tablet 2.5 mg PO BID 07/03/20 08/23/20 08/23/20 History Ensure 1 ea PO AC 08/23/20 08/23/20 Unknown History furosemide 20 mg PO DAILY PRN 08/23/20 08/23/20 08/23/20 History metoprolol tartrate 25 mg PO DAILY PRN 08/23/20 08/23/20 08/23/20 History metoprolol tartrate 50 mg PO BID 08/23/20 08/23/20 08/23/20 History mirtazapine 7.5 mg PO BEDTIME 08/23/20 08/23/20 08/23/20 History Physical Exam Vital Signs and Narrative: Vital Signs: Last Vital Signs Temp 97.8 F 08/22/20 21:19 Pulse 85 08/22/20 21:19 Resp 16 08/22/20 21:19 BP 121/63 08/22/20 21:19 Pulse Ox 98 08/22/20 21:19 Body Mass Index 23.0 Gen: Appears be in no acute distress HEENT: NCAT, Moist mucosa. Pulmonary: Vesicular breath sounds, fair air entry CVS: Normal S1-S2 Abdomen: BS+, Soft, Nontender Extremities: Warm well perfused Neuro: Alert and awake. Results Labs CBC and Chem 7: 08/23/20 06:47 08/23/20 06:48 Labs: Laboratory Results - last 24 hr 08/22/20 08/22/20 08/22/20 17:55 17:55 17:55 MCV 96.2 MCH 30.4 MCHC 31.6 RDW 18.0 H Plt Count 430 H D MPV 9.3 L Immature Gran % (Auto) 0.6 H Neut % (Auto) 70.1 Lymph % (Auto) 20.7 [place] % (Auto) 6.4 Eos % (Auto) 2.1 Baso % (Auto) 0.1 Lymph # (Auto) 1.4 [place] # (Auto) 0.4 Eos # (Auto) 0.1 Baso # (Auto) 0.0 Abs Immat Gran (auto) 0.04 H Absolute Neuts (auto) 4.8 Absolute Nucleated RBC 0.000 Nucleated RBC % (auto) 0.0 Hold Purple Top SEE NOTE PT INR APTT Hold Blue Top SEE NOTE Anion Gap Estim Creat Clear Calc Estimated GFR Random Glucose Calcium Total Bilirubin AST ALT Alkaline Phosphatase Total Protein Albumin Urine Color Urine Appearance Urine pH Ur Specific [place] Urine Protein Urine Glucose (UA) Urine Ketones Urine Blood Urine Nitrite Ur Leukocyte Esterase Urine RBC Urine WBC Ur Squamous Epith Cells Urine Bacteria Stool Occult Blood COVID-19 ([place]) COVID-SCI Solution Blood Type Antibody Screen Crossmatch 08/22/20 08/22/20 08/22/20 17:55 20:11 20:11 MCV MCH MCHC RDW Plt Count MPV Immature Gran % (Auto) Neut % (Auto) Lymph % (Auto) [place] % (Auto) Eos % (Auto) Baso % (Auto) Lymph # (Auto) [place] # (Auto) Eos # (Auto) Baso # (Auto) Abs Immat Gran (auto) Absolute Neuts (auto) Absolute Nucleated RBC Nucleated RBC % (auto) Hold Purple Top PT 17.4 H D INR 1.5 H APTT 36.8 Hold Blue Top Anion Gap 12 Estim Creat Clear Calc 13.0 Estimated GFR 21 Random Glucose 97 Calcium 7.9 L Total Bilirubin 0.2 AST 84 H ALT 55 H Alkaline Phosphatase 209 H D Total Protein 6.6 Albumin 3.2 L Urine Color Urine Appearance Urine pH Ur Specific [place] Urine Protein Urine Glucose (UA) Urine Ketones Urine Blood Urine Nitrite Ur Leukocyte Esterase Urine RBC Urine WBC Ur Squamous Epith Cells Urine Bacteria Stool Occult Blood COVID-19 ([place]) Negative COVID-SCI Solution See Note Blood Type Antibody Screen Crossmatch 08/22/20 08/22/20 08/22/20 20:51 20:59 22:09 MCV MCH MCHC RDW Plt Count MPV Immature Gran % (Auto) Neut % (Auto) Lymph % (Auto) [place] % (Auto) Eos % (Auto) Baso % (Auto) Lymph # (Auto) [place] # (Auto) Eos # (Auto) Baso # (Auto) Abs Immat Gran (auto) Absolute Neuts (auto) Absolute Nucleated RBC Nucleated RBC % (auto) Hold Purple Top PT INR APTT Hold Blue Top Anion Gap Estim Creat Clear Calc Estimated GFR Random Glucose Calcium Total Bilirubin AST ALT Alkaline Phosphatase Total Protein Albumin Urine Color PINK Urine Appearance CLOUDY Urine pH 7.0 Ur Specific [place] 1.025 Urine Protein 2+ H Urine Glucose (UA) NEG Urine Ketones NEG Urine Blood 3+ H Urine Nitrite NEG Ur Leukocyte Esterase 2+ H Urine RBC TNTC H Urine WBC 50-75 H Ur Squamous Epith Cells 1+ Urine Bacteria TRACE Stool Occult Blood NEGATIVE COVID-19 ([place]) COVID-19 Clin Com Blood Type A Positive Antibody Screen NEGATIVE Crossmatch See Detail Imaging Radiologist's Impressions: Impressions Chest X-Ray 08/22/20 19:51 IMPRESSION: No evidence for acute disease. Assessment and Plan (1) Recurrent UTI: Status: Acute 85-year-old female with a past medical history hypertension, hyperlipidemia, AFib on Eliquis, CHF, anxiety, GERD, history of DVT presented to the hospital with a chief complaint of confusion/unsteady gait/fall. Confusion: Toxic metabolic encephalopathy. Supportive care. Recurrent UTI: Continue ceftriaxone. Follow up cultures. Hematuria: Noted slight drop in hemoglobin. Vitals stable. Patient has history of bilateral hydronephrosis with stent placement. Will consult Urology for further recommendations. CT abdomen pending. [place] catheter. Serial H&H. Anemia: Likely in the setting of hematuria. Stool guaiac negative in the ER. History of AFib: Rate controlled. Hold Eliquis given hematuria. Unsteady gait/recurrent falls: Will obtain folate, B12, vitamin-D levels. Will also consult Neurology. CT head pending. PT/OT History of CHF: Currently euvolemic. Continue home medications. For all other chronic conditions, home medications will be continued DVT prophylaxis: SCD boots Code status: DNR/DNI-discussed with the patient's daughter. A
[2020-08-23] MEDS: cefTRIAXone sodium 1 GM in 0.9 % Sodium Chloride 50 ML IV ×2 (01:49→21:12)
[2020-08-23 01:51] LABS: Lactic Acid 1.4 mmol/L (0.5-2.0)
[2020-08-23 03:11] LABS: Vitamin D 25-OH Total 9.5 ng/mL (>30)
--- NOTE | 2020-08-23 05:06 | PC.NURSE ---
PT got out of bed without using call eng to use the bathroom. In the process, PT pulled out her peripheral IV that was being used for a blood transfusion. IV was reestablished in left AC and transfusion was continued.
[2020-08-23 07:16] LABS: MANUAL DIFF FLAG NO
[2020-08-23 07:25] LABS: Basophils Percent Auto 0.1 % (0-2); Eosinophils Absolute Auto 0.1 X10*3/uL (0.0-0.4); Eosinophils Percent Auto 1.9 % (0-4); Hematocrit 32.5 % (37-47); Hemoglobin 10.2 g/dl (12.0-16.0); Imm Gran Abs Auto 0.06 X10*3/uL (0.00-0.03); Imm Gran Pct Auto 0.8 % (0.0-0.4); Lymphocytes Absolute Auto 1.2 X10*3/uL (1.2-4.9); Lymphocytes Percent Auto 15.6 % (20-40); Mean Corpuscular HGB Conc 31.4 g/dl (31.0-35.0); Mean Corpuscular Hemoglobin 30.2 pg (27.0-33.0); Mean Corpuscular Volume 96.2 fL (80-98); Mean Platelet Volume 9.1 fL (9.4-12.3); Monocytes Absolute Auto 0.4 X10*3/uL (0.1-1.2); Monocytes Percent Auto 5.8 % (2-11); Neutrophils Absolute Auto 5.6 X10*3/uL (2.0-8.3); Neutrophils Percent Auto 75.8 % (45-73); Platelet Count 348 X10*3/uL (160-400); Red Blood Count 3.38 X10*6/uL (4.20-5.50); Red Cell Distribution Width 17.1 % (11.0-16.0); White Blood Count 7.4 X10*3/uL (4.8-10.8)
[2020-08-23 07:47] LABS: Anion Gap 15 (12-20); Blood Urea Nitrogen 18 mg/dL (9-16); Calcium 8.1 mg/dL (8.4-10.2); Carbon Dioxide 19 mmol/L (22-29); Chloride 109 mmol/L (96-108); Creatinine Clr Calc Pharmacy 15.6; Estimated Glomerular Filt Rate 26; Glucose Random 83 mg/dL (60-115); Potassium 5.1 mmol/L (3.3-5.1); Sodium 138 mmol/L (135-145)
[2020-08-23] MEDS: 0.9 % Sodium Chloride Flush 3 ML SYRINGE IVFLUSH ×2 (07:55→16:52)
[2020-08-23 08:55] LABS: B Type Natriuretic Peptide 850 pg/mL (<100)
[2020-08-23 09:48] LABS: Folate 6.4 ng/mL (> or = 4.0); Vitamin B12 338 pg/mL (200-900)
[2020-08-23] MEDS: Amiodarone HCL 200 MG TABLET PO (09:50)
[2020-08-23] MEDS: Metoprolol Tartrate 50 MG TABLET PO ×2 (09:50→21:12)
--- NOTE | 2020-08-23 10:44 | MHC.CM.PN ---
Attempted to meet with patient in regards to discharge planning. Patient has a history of dementia. Met with patient's daughter/HCP, Alina in ER waiting room. Physicla therapy is recommending home therapy. Patient has been active with [facility] in the past. Alina is requesting referral to NA. Referral made via [employer]. PCP verified. HCP verified to be on file. IMM explained and signed. Alina will transport patient home when medically stable. Continue to monitor for d/c needs.
--- NOTE | 2020-08-23 11:46 | PC.NURSE ---
patient awake/alert, requesting tv to be put on, pt denies pain or discomfort, will continue to monitor.
--- NOTE | 2020-08-23 12:12 | P.CDIC_ITS ---
CDI Concurrent Query Service Date: 08/23/20 Documentation Clarification: Please clarify if you are treating a proba ble/suspected/likely or confirmed: Acute Blood Loss Anemia Other Anemia, please specify Acute Blood Loss Anemia Provider Response: Acute Blood Loss Anemia PLEASE DO NOT DELETE/MODIFY EXISTING CONTENT Additional information is needed in order to code to the highest accuracy and appropriate Severity of Illness (SOI). Please clarify the information noted below in your progress notes and discharge summary. Risk Factors/Clinical Indicators/Treatments 85 year old female admitted with dizziness gross hematuria, multiple falls Was on Bactrim for UTI H/H 8.9/.2 Treated with IV antibiotic, blood transfusion Per H&P: Recurrent UTI, Toxic Metabolic Encephalopathy, Anemia CDS: Nidhi Tyler RN Contact Number: [phone] Please Review the information above and exercise your independent professional judgment in responding to the query. If you concur, pleas document in the PROGRESS NOTES and DISCHARGE SUMMARY. If you do not agree with the query, please document in the query above. THIS QUERY IS PART OF THE PERMANENT MEDICAL RECORD
--- NOTE | 2020-08-23 13:18 | P.CNUR_ITS ---
History of Present Illness Consult details Consult date: 08/23/20 Narrative: Amrik is a female. Per the patient she came to hospital because she had urgency, frequency and tiredness. Found to have a UTI and also with symptomatic anemia. UA positive leukocytes but negative nitrites. Culture is pending. She does have bilateral indwelling ureteric stents. These were placed in April after admission with hydronephrosis and elevated creatinine up to 6 Creatinine return down to a baseline of 1.5. Is 1.8 on evaluation today. Is being given gentle rehydration. IV antibiotics being given Discussed with patient that she needs stent change. These have been in approximately 3 and half months. This is not long for stents which may remain up to 6 months. Stent change can be organized as outpatient and is not emergent. If she is tolerating orals there is no reason for her to be admitted from a urologic perspective. UTI can be treated with 7 days of antibiotics. [facility] Past Medical History Medical History (Updated 08/23/20 @ 13:22 by Moshe Pugh MD) Anxiety Ramos's palsy Cervical cancer Congestive heart failure DVT (deep venous thrombosis) GERD (gastroesophageal reflux disease) Hydronephrosis Hypercholesterolemia Hypertension Lumbar degenerative disc disease Obstructive uropathy Osteoarthritis Paroxysmal atrial fibrillation Peripheral vascular disease Vitamin D deficiency Family History Family History Father Hypertension Stroke CVD (cardiovascular disease) Mother Hypoglycemia Surgical History Surgical History H/O elbow surgery History of bladder surgery History of cholecystectomy Social History Social History Household Members: Family Housing: House Alcohol intake: never Smoking Status: Never smoker Second Hand Smoke Exposure: No service: No Current occupational status: disabled Meds Allergies Allergy/AdvReac Type Severity Reaction Status Date / Time amlodipine [From NORVASC] Allergy Intermediate HIVES Verified 06/23/20 12:13 aspirin [ASA] Allergy Intermediate HIVES Verified 06/23/20 12:13 robert [ROBERT] Allergy Intermediate HIVES Verified 01/28/20 19:23 hydrochlorothiazide Allergy Unknown Hives Verified 06/23/20 12:13 gabapentin AdvReac Unknown dizziness Verified 06/23/20 12:13 lisinopril AdvReac Unknown Cough Verified 06/23/20 12:13 Active Medications: Current Medications Generic Name Dose Route Start Last Admin Trade Name Freq PRN Reason Stop Dose Admin Acetaminophen 650 mg 08/23/20 01:35 Acetaminophen 325 Mg Tablet PO Q6H PRN Pain, Mild (Pain Scale 1-3) Alprazolam 0.5 mg 08/23/20 08:12 Alprazolam 0.5 Mg Tablet PO BID PRN Anxiety Amiodarone HCl 200 mg 08/23/20 09:00 08/23/20 09:50 Amiodarone Hcl 200 Mg Tablet PO 200 mg DAILY [facility] Administration Ceftriaxone Sodium 1 gm/ 50 mls @ 100 mls/hr 08/23/20 21:00 Sodium Chloride IV Q24H [facility] Metoprolol Tartrate 50 mg 08/23/20 09:45 08/23/20 09:50 Metoprolol Tartrate 50 Mg Tablet PO 50 mg BID [facility] Administration Protocol Metoprolol Tartrate 25 mg 08/23/20 12:00 Metoprolol Tartrate 25 Mg Tablet PO DAILY@1200 PRN HYPERTENSIVE @ 1200 Mirtazapine 7.5 mg 08/23/20 21:00 Mirtazapine 7.5 Mg Tablet PO BEDTIME [facility] Pharmacy Consult 1 each 08/23/20 08:43 Consult Rx Perform Med Rec MISCELLANE ONCE PRN Consult order Senna 17.2 mg 08/23/20 01:35 Sennosides 8.6 Mg Tablet PO BEDTIME PRN Constipation Sodium Chloride 3 ml 08/23/20 08:00 08/23/20 07:55 0.9 % Sodium Chloride Flush 3 Ml Syringe IVFLUSH 3 ml QSHIFT [facility] Administration Home Medications Medication Instructions Recorded Confirmed Last Taken Type apixaban 2.5 mg tablet 2.5 mg PO BID 07/03/20 08/23/20 08/23/20 History food supplemt, lactose-reduced 1 ea PO AC 08/23/20 08/23/20 Unknown History [Ensure] furosemide 20 mg PO DAILY PRN 08/23/20 08/23/20 08/23/20 History metoprolol tartrate 25 mg PO DAILY PRN 08/23/20 08/23/20 08/23/20 History metoprolol tartrate 50 mg PO BID 08/23/20 08/23/20 08/23/20 History mirtazapine 7.5 mg PO BEDTIME 08/23/20 08/23/20 08/23/20 History Physical Exam Vital Signs: Vital Signs: Last Vital Signs Temp 97.8 F 08/23/20 05:49 Pulse 87 08/23/20 09:50 Resp 16 08/23/20 09:48 BP 136/80 08/23/20 09:50 Pulse Ox 98 08/23/20 09:48 Body Mass Index 23.0 Const: General: cooperative, healthy appearing, comfortable and no acute distress Nutritional Appearance: average body habitus Orientation/cons ciousness: oriented to person, oriented to place and oriented to time Eyes: General: appearance normal, both eyes and all related structures Chest: Chest palpation & inspection: normal inspection of the chest Resp: Effort & Inspection: normal respiratory effort Cardio: Rate: regular rate GI: Inspection: Yes normal to inspection Skin: Hair: normal Neuro: General: oriented to person, oriented to place and oriented to time Extrem: General: Yes normal to inspection Results Labs Result diagrams: 08/23/20 06:47 08/23/20 06:48 Labs: Abnormal lab results 08/22/20 08/22/20 08/22/20 Range/Units 17:55 17:55 20:11 RBC 2.93 L D (4.20-5.50) X10*6/uL Hgb 8.9 L D (12.0-16.0) g/dl Hct 28.2 L D (37-47) % RDW 18.0 H (11.0-16.0) % Plt Count 430 H D (160-400) X10*3/uL MPV 9.3 L (9.4-12.3) fL Immature Gran % (Auto) 0.6 H (0.0-0.4) % Neut % (Auto) (45-73) % Lymph % (Auto) (20-40) % Abs Immat Gran (auto) 0.04 H (0.00-0.03) X10*3/uL PT 17.4 H D (10.8-13.0) SEC INR 1.5 H (0.9-1.1) Chloride (96-108) mmol/L Carbon Dioxide (22-29) mmol/L BUN 20 H (9-16) mg/dL Creatinine 2.19 H (0.5-1.4) mg/dL Calcium 7.9 L (8.4-10.2) mg/dL AST 84 H (5-31) U/L ALT 55 H (0-31) U/L Alkaline Phosphatase 209 H D (39-117) U/L B-Natriuretic Peptide (<100) pg/mL Albumin 3.2 L (3.5-5.0) g/dL Urine Protein (NEG-TRACE) MG/DL Urine Blood (NEG) Ur Leukocyte Esterase (NEG) Urine RBC (0) /HPF Urine WBC (0-4) /HPF Crossmatch 08/22/20 08/22/20 08/23/20 Range/Units 20:51 22:09 06:47 RBC 3.38 L (4.20-5.50) X10*6/uL Hgb 10.2 L (12.0-16.0) g/dl Hct 32.5 L (37-47) % RDW 17.1 H (11.0-16.0) % Plt Count (160-400) X10*3/uL MPV 9.1 L (9.4-12.3) fL Immature Gran % (Auto) 0.8 H (0.0-0.4) % Neut % (Auto) 75.8 H (45-73) % Lymph % (Auto) 15.6 L (20-40) % Abs Immat Gran (auto) 0.06 H (0.00-0.03) X10*3/uL PT (10.8-13.0) SEC INR (0.9-1.1) Chloride (96-108) mmol/L Carbon Dioxide (22-29) mmol/L BUN (9-16) mg/dL Creatinine (0.5-1.4) mg/dL Calcium (8.4-10.2) mg/dL AST (5-31) U/L ALT (0-31) U/L Alkaline Phosphatase (39-117) U/L B-Natriuretic Peptide (<100) pg/mL Albumin (3.5-5.0) g/dL Urine Protein 2+ H (NEG-TRACE) MG/DL Urine Blood 3+ H (NEG) Ur Leukocyte Esterase 2+ H (NEG) Urine RBC TNTC H (0) /HPF Urine WBC 50-75 H (0-4) /HPF Crossmatch See Detail 08/23/20 08/23/20 Range/Units 06:47 06:48 RBC (4.20-5.50) X10*6/uL Hgb (12.0-16.0) g/dl Hct (37-47) % RDW (11.0-16.0) % Plt Count (160-400) X10*3/uL MPV (9.4-12.3) fL Immature Gran % (Auto) (0.0-0.4) % Neut % (Auto) (45-73) % Lymph % (Auto) (20-40) % Abs Immat Gran (auto) (0.00-0.03) X10*3/uL PT (10.8-13.0) SEC INR (0.9-1.1) Chloride 109 H (96-108) mmol/L Carbon Dioxide 19 L (22-29) mmol/L BUN 18 H (9-16) mg/dL Creatinine 1.82 H (0.5-1.4) mg/dL Calcium 8.1 L (8.4-10.2) mg/dL AST (5-31) U/L ALT (0-31) U/L Alkaline Phosphatase (39-117) U/L B-Natriuretic Peptide 850 H (<100) pg/mL Albumin (3.5-5.0) g/dL Urine Protein (NEG-TRACE) MG/DL Urine Blood (NEG) Ur Leukocyte Esterase (NEG) Urine RBC (0) /HPF Urine WBC (0-4) /HPF Crossmatch Short CBC 08/22/20 08/23/20 Range/Units 17:55 06:47 WBC 6.8 7.4 (4.8-10.8) X10*3/uL Hgb 8.9 L D 10.2 L (12.0-16.0) g/dl Hct 28.2 L D 32.5 L (37-47) % Plt Count 430 H D 348 (160-400) X10*3/uL BMP 08/22/20 08/23/20 17:55 06:48 Sodium 136 138 Potassium 4.7 5.1 Chloride 106 109 H Carbon Dioxide 23 19 L BUN 20 H 18 H Creatinine 2.19 H 1.82 H Calcium 7.9 L 8.1 L Cardiac Enzymes 08/23/20 Range/Units 06:48 Total Creatine Kinase 32 (26-140) U/L Liver Function 08/22/20 Range/Units 17:55 Total Bilirubin 0.2 (0.0-1.0) mg/dL AST 84 H (5-31) U/L ALT 55 H (0-31) U/L Alkaline Phosphatase 209 H D (39-117) U/L Albumin 3.2 L (3.5-5.0) g/dL Urine 08/22/20 Range/Units 22:09 Urine Color PINK Urine Appearance CLOUDY Urine pH 7.0 (5.0-8.0) Ur Specific [place] 1.025 (1.005-1.025) Urine Protein 2+ H (NEG-TRACE) MG/DL Urine Glucose (UA) NEG (NEG) MG/DL All other labs normal. Assessment and Plan (1) Recurrent UTI: Status: Acute (2) Hydronephrosis: Problem details: Right ureteral stent April 2016 Dr. quezada left ureteral stent placement and right stent change December 2016, right-sided ureteral obstruction for slippage of stent March 2017, stent change August 2017, change of bilateral renal stents April [address] Dr. Garsia Status: Inactive Plan for outpatient stent exchange
--- NOTE | 2020-08-23 15:37 | PC.NURSE ---
called up to [facility] for report, expecting call back
--- NOTE | 2020-08-23 15:53 | HO.PM.IMPN ---
Subjective Subjective Date of Service: 08/23/20 Interval History: Follow up hematuria. UTI. No pain or discomfort Physical Exam Vital Signs: Vital Signs: Last Vital Signs Temp 97.8 F 08/23/20 05:49 Pulse 87 08/23/20 09:50 Resp 16 08/23/20 09:48 BP 136/80 08/23/20 09:50 Pulse Ox 98 08/23/20 09:48 Body Mass Index 23.0 Appearing in no acute distress lung sounds are clear to auscultation heart regular rate rhythm, clear S1, S2 positive bowel sounds, abdomen is soft, nontender neuro patient is alert x3, no focal deficits Objective Data Current Medications Generic Name Dose Route Start Last Admin Trade Name Freq PRN Reason Stop Dose Admin Acetaminophen 650 mg 08/23/20 01:35 Acetaminophen 325 Mg Tablet PO Q6H PRN Pain, Mild (Pain Scale 1-3) Alprazolam 0.5 mg 08/23/20 08:12 Alprazolam 0.5 Mg Tablet PO BID PRN Anxiety Amiodarone HCl 200 mg 08/23/20 09:00 08/23/20 09:50 Amiodarone Hcl 200 Mg Tablet PO 200 mg DAILY [facility] Administration Ceftriaxone Sodium 1 gm/ 50 mls @ 100 mls/hr 08/23/20 21:00 Sodium Chloride IV Q24H [facility] Metoprolol Tartrate 50 mg 08/23/20 09:45 08/23/20 09:50 Metoprolol Tartrate 50 Mg Tablet PO 50 mg BID [facility] Administration Protocol Metoprolol Tartrate 25 mg 08/23/20 12:00 Metoprolol Tartrate 25 Mg Tablet PO DAILY@1200 PRN HYPERTENSIVE @ 1200 Mirtazapine 7.5 mg 08/23/20 21:00 Mirtazapine 7.5 Mg Tablet PO BEDTIME [facility] Pharmacy Consult 1 each 08/23/20 08:43 Consult Rx Perform Med Rec MISCELLANE ONCE PRN Consult order Senna 17.2 mg 08/23/20 01:35 Sennosides 8.6 Mg Tablet PO BEDTIME PRN Constipation Sodium Chloride 3 ml 08/23/20 08:00 08/23/20 07:55 0.9 % Sodium Chloride Flush 3 Ml Syringe IVFLUSH 3 ml QSHIFT [facility] Administration Labs CBC & Chem 7: 08/23/20 06:47 08/23/20 06:48 Microbiology Microbiology Results: Microbiology 08/22/20 22:17 Urine clean catch - Clean Catch Midstream Urine Culture - Preliminary Culture too young to evaluate. Assessment and Plan (1) Hematuria: Status: Acute Assessment and Plan: 85-year-old female with a past medical history hypertension, hyperlipidemia, AFib on Eliquis, CHF, anxiety, GERD, history of DVT presented to the hospital with a chief complaint of confusion/unsteady gait/fall. Toxic metabolic encephalopathy. Seems to be clearing. alert and oriented today. -Supportive care. Hematuria. Noted slight drop in hemoglobin. Possible from ureteral stents rubbing. Vitals stable. Patient has history of bilateral hydronephrosis with stent placement. Abd CT showed no change in stent placement -No blood in urine Recurrent UTI. Cx from 06/30/20 showed enterobacter, proteus -Continue ceftriaxone. -Follow up cultures. Anemia. Likely in the setting of hematuria. -Stool guaiac negative in the ER. -trend HH History of AFib. Rate controlled. -Discussed with urology rec holding eliquis 3-4 days in light of hematuria -Continue amiodarone, metoprolol Recurrent falls. -PT rec home with PT -supportive family History of CHF. Currently euvolemic. -Continue home medications. DVT prophylaxis: SCD boots in light of hematuria DISPO: Home when medically clear, likely tomorrow home with PT. Cleared from urology standpoint will see in office for stent electronic data interchange specialist. Attending: Dr. Spencer
[2020-08-23 17:49] LABS: Glucose Urine UA NEG (NEG); Leukocyte Esterase Urine 3+ (NEG); Nitrite Urine NEG (NEG); UACC Culture Trigger YES; Urine Blood 3+ (NEG); Urine Ketones NEG (NEG); Urine Protein 1+ MG/DL (NEG-TRACE)
[2020-08-23 17:50] LABS: Appearance Urine CLOUDY; Color Urine DARK YELLOW
[2020-08-23 17:58] LABS: Bacteria Urine 1+ /LPF; RBC Urine 30-49 /HPF (0); Squamous Epithelial Cell Urine 1+ /LPF
[2020-08-23] MEDS: Mirtazapine 7.5 MG TABLET PO (21:12)
[2020-08-23] MEDS: oxyCODONE HCl Immed Release 5 MG TABLET PO (21:42)
[2020-08-24] MEDS: 0.9 % Sodium Chloride Flush 3 ML SYRINGE IVFLUSH ×2 (00:11→09:56)
[2020-08-24 03:16] VITALS: BP 121/81; PULSE 85; RESP 18; TEMP 36.2; O2SAT 97
[2020-08-24] MEDS: Levothyroxine Sodium 50 MCG TABLET PO (06:05)
[2020-08-24] MEDS: Omeprazole 20 MG CAPSULE.DR PO (06:05)
[2020-08-24 08:00] VITALS: BP 100/57; PULSE 72; RESP 18; TEMP 36.9; O2SAT 96
--- NOTE | 2020-08-24 09:53 | P.F2F_ITS ---
Service Date Service Date: 08/24/20 Encounter Date of encounter: 08/24/20 Reasons for Services Reason for physical therapy: home safety and mobility and gait/transfer training MD Overseeing Care: Renu Simon Homebound: Leaving the home is medically contraindicated at this time without the asist of a device and/or another person due th the listed conditions above a nd below. Reason homebound: unsteady gait / fall risk and weakness related to hospital stay Certification: Based on the above findings, I certify that this patient is confined to the home and needs intermittent senior living care, physical therapy and/or speech therapy, or continues to need occupational therapy. The patient is under my care, and I have initiated the establishment of the plan of care. The patient will be followed by a physician who will periodically review the plan of care.
[2020-08-24 09:56] VITALS: BP 133/67; PULSE 71
[2020-08-24] MEDS: Amiodarone HCL 200 MG TABLET PO (09:56)
[2020-08-24] MEDS: Metoprolol Tartrate 50 MG TABLET PO (09:56)
--- NOTE | 2020-08-24 09:57 | PM.DS ---
DS: Providers Provider Date of Service: 08/24/20 Date of admission: 08/23/20 01:36 Primary care physician: Renu Simon MD Consults: 08/23/20 01:28 Consult to Urology Routine Consulting Provider: Moshe Pugh Reason for consultation: hematuria DS: Diagnosis Discharge Diagnosis (1) Hematuria: Status: Acute (2) Recurrent UTI: Status: Acute DS: Medications Discharge Medications Home Medications: Home Medications Medication Instructions Recorded Confirmed apixaban 2.5 mg tablet 2.5 mg PO BID 07/03/20 08/23/20 food supplemt, lactose-reduced 1 ea PO AC 08/23/20 08/23/20 [Ensure] furosemide 20 mg PO DAILY PRN 08/23/20 08/23/20 metoprolol tartrate 25 mg PO DAILY PRN 08/23/20 08/23/20 metoprolol tartrate 50 mg PO BID 08/23/20 08/23/20 mirtazapine 7.5 mg PO BEDTIME 08/23/20 08/23/20 Previous Rx's Medication Instructions Recorded amiodarone 200 mg tablet 200 mg PO DAILY 30 Days #30 tab 03/01/20 levothyroxine 50 mcg tablet 50 mcg PO QAM #30 tab 04/07/20 omeprazole 20 mg PO DAILY@0630 #30 cap 05/26/20 alprazolam 0.5 mg tablet 0.5 mg PO BID PRN #45 tab 06/12/20 oxycodone 5 mg tablet 5 mg PO TID PRN 7 Days #21 tab 08/01/20 miscellaneous medical supply #1 ea 08/03/20 sulfamethoxazole 800 1 tab PO BID #14 tab 08/21/20 mg-trimethoprim 160 mg tablet wheelchair #1 ea 08/21/20 DS: Summary Hospital Course Hospital Course: From H&P 08/23 85-year-old female with a past medical history of hypertension, hyperlipidemia, CHF, AFib on Eliquis, anxiety, peripheral vascular disease, history of cervical cancer, history of DVT, lives with the family presented to the hospital with chief complaint of confusion. Most of the history obtained from the patient's daughter -Alina and ER staff. Reportedly patient has been confused lately and has been having increased falls but the daughter stood behind the patient and I had her and patient did not land on the ground. Denies any loss of consciousness. Denies any chest pain or palpitations. Patient's daughter mentioned that she took her to the PCP yesterday and was started on Bactrim for a UTI. Also reported that patient had hematuria for the past couple days. And she has stents in place for the hydronephrosis and which were replaced about a month ago. Denies any trouble swallowing or eating. Dependent on ADLs. Patient was admitted for confusion, unsteady gait, UTI and hematuria . Eliquis was placed on hold, hematuria resolved and H/H remained stable. She was started on antibiotics for UTI. Urine culture grew >100,00 cfu but was mixed bacterial isabel. She was seen in consultation by Urology who recommended 7 days of antibiotics. She will be discharged home with oral antibiotics. He also recommended outpatient follow-up for stent exchange as well as holding Eliquis until Friday due to hematuria. She should call to schedule a follow-up appointment with urology. Blood cultures have been negative for 24 hours. Her mental status has improved and she was seen by Physical therapy who recommended home with physical therapy. She is now stable for discharge home. Time Spent with Patient Time attestation: Total time spent providing and/or coordinating discharge services: Discharge coordination time: Greater than 30 minutes Physical Exam Vital Signs: Vital Signs: Last Vital Signs Temp 98.4 F 08/24/20 08:00 Pulse 71 08/24/20 09:56 Resp 18 08/24/20 08:00 BP 133/67 08/24/20 09:56 Pulse Ox 96 08/24/20 08:00 Body Mass Index 23.0 Const: General: comfortable, no acute distress, alert and awake Nutritional Appearance: well nourished HENMT: Head: Yes normocephalic and Yes atraumatic Eyes: Sclerae: sclerae normal Resp: Effort & Inspection: normal respiratory effort and no respiratory distress Cardio: Rate: regular rate Rhythm: regular rhythm GI: Palpation (GI): Soft to palpation and nontender DS: Data Data Completed and Pending Completed studies during hospitalization [Text1]: Procedures Dilation of Left Ureter with Intraluminal Device, Via Natural or Artificial Opening Endoscopic (05/19/20) Dilation of Right Ureter with Intraluminal Device, Via Natural or Artificial Opening Endoscopic (05/19/20) Removal of Intraluminal Device from Ureter, Via Natural or Artificial Opening Endoscopic (05/19/20) Religious of Cardiac Rhythm, Single (01/26/20) Transfusion of Nonautologous Red Blood Cells into Peripheral Vein, Percutaneous Approach (06/11/20) Labs on day of discharge: Laboratory Results - last 24 hr 08/23/20 17:34 Urine Color DARK YELLOW Urine Appearance CLOUDY Urine pH 7.0 Ur Specific [place] 1.020 Urine Protein 1+ H Urine Glucose (UA) NEG Urine Ketones NEG Urine Blood 3+ H Urine Nitrite NEG Ur Leukocyte Esterase 3+ H Urine RBC 30-49 H Urine WBC 15-29 H Ur Squamous Epith Cells 1+ Urine Bacteria 1+ Preliminary micro results at discharge 08/23/20 01:20 Blood Culture - Preliminary Blood - Venous No growth after 24 hours. 08/23/20 01:20 Blood Culture - Preliminary Blood - Venous No growth after 24 hours. Discharge Plan Discharge Anticipated Discharge Date/Time: 08/23/20 13:44 Patient Disposition: Home Health Service Discharge Diagnosis: Hematuria UTI Anemia Toxic metabolic encephalopathy Referrals: Moshe Pugh MD [Physician] - 1 Week Po,Renu Ignacio MD [Primary Care Provider] - 1 Week Discharge Medications: New cefuroxime axetil 250 mg tablet 250 mg PO BID 5 Days Qty: 10 RF: 0 Continued amiodarone 200 mg tablet 200 mg PO DAILY 30 Days Qty: 30 RF: 5 levothyroxine 50 mcg tablet 50 mcg PO QAM Qty: 30 RF: 4 alprazolam 0.5 mg tablet 0.5 mg PO BID PRN (Reason: Anxiety) Qty: 45 RF: 0 oxycodone 5 mg tablet 5 mg PO TID PRN (Reason: pain) 7 Days Qty: 21 RF: 0 (DME) miscellaneous medical supply Misc See Rx Instructions .ROUTE .MEDSUPPLY Qty: 1 RF: 0 omeprazole 20 mg Capsule,Delayed Release(Dr/Ec) 20 mg PO DAILY@0630 Qty: 30 RF: 0 mirtazapine 7.5 mg tablet 7.5 mg PO BEDTIME RF: 0 metoprolol tartrate 50 mg Tablet 50 mg PO BID RF: 0 furosemide 20 mg Tablet 20 mg PO DAILY PRN (Reason: Edema) RF: 0 metoprolol tartrate 25 mg Tablet 25 mg PO DAILY PRN (Reason: Hypertension) RF: 0 Ensure Liquid 1 ea PO AC RF: 0 (DME) wheelchair See Rx Instructions .Route .MEDSUPPLY Qty: 1 RF: 0 Held Eliquis 2.5 mg tablet 2.5 mg PO BID RF: 0 Hold Instructions: Resume on 08/28/20. Discontinued sulfamethoxazole-trimethoprim [Bactrim DS] 800-160 mg tablet 1 tab PO BID Qty: 14 RF: 0 Discharge Orders: Discharge Order (Routine); Ordered 08/24/20 Ordered By: Jordana Baum Diet: advance to usual diet Activity on Discharge: As tolerated Stand Alone Forms: Patient Portal Discharge page Care Plan Goals: Resolution of urinary hematuria Health Concerns: Hematuria UTI Encephalopathy Anemia Falls Plan of Treatment: Please call to schedule follow up with Urologist, Dr. Moshe Pugh [phone] for outpatient appointment Hematuria. Do not take Eliquis until Monday 08/28. Return to the emergency department if bleeding continues or gets worse Assessment: See discharge summary
--- NOTE | 2020-08-24 10:23 | MHC.CM.PN ---
Patient will be discharged home today with new referral to [facility]. Dtr will provide transportation. Patient, nurse are aware.
== END 2020-08-24 11:00 | disposition home health service (06) | DRG 689 ==
LOC: HO.ED 08-23 01:23 → HO.EDOVER 08-23 01:45 → HO.IMC 08-23 15:23
PROVIDERS: Nurse Practitioner Acute Care; Nurse Practitioner Family; Admitting Provider Hospitalist; Emergency Provider Student in an Organized Health Care Education/Training Program; PCP Internal Medicine; Visit Provider Family Medicine
DX: N13.6 Pyonephrosis (principal); G92 Toxic encephalopathy; I13.0 Hypertensive heart and chronic kidney disease with heart failure and stage 1 through stage 4 chronic kidney disease, or unspecified chronic kidney disease; I50.22 Chronic systolic (congestive) heart failure; D62 Acute posthemorrhagic anemia; N18.4 Chronic kidney disease, stage 4 (severe); F03.90 Unspecified dementia, unspecified severity, without behavioral disturbance, psychotic disturbance, mood disturbance, and anxiety; E78.5 Hyperlipidemia, unspecified; D63.1 Anemia in chronic kidney disease; E03.9 Hypothyroidism, unspecified; R31.0 Gross hematuria; I48.91 Unspecified atrial fibrillation; R26.81 Unsteadiness on feet; Z20.822 Contact with and (suspected) exposure to COVID-19; Z87.440 Personal history of urinary (tract) infections; Z88.6 Allergy status to analgesic agent; Z79.01 Long term (current) use of anticoagulants; Z79.890 Hormone replacement therapy; Z79.899 Other long term (current) drug therapy; Z66 Do not resuscitate
CPT/HCPCS: 36415; 70450; 71045; 74176; 80048; 80053; 81001; 81003; 82272; 82306; 82550; 82607; 82746; 83605; 83880; 85025; 85610; 85730; 86850; 86900; 86901; 86923; 87040; 87086; 87635; 93005; 96365; 97162; 99285; 99291; J0696; P9016

== ENCOUNTER 2020-09-08 08:43 | Emergency (ER) | payer MEDICARE, MEDICAID, SELFPAY ==
--- NOTE | ~2020-09-08 | CT_ITS ---
EXAMINATION: CT BRAIN AND CT CERVICAL SPINE WITHOUT CONTRAST. CLINICAL INFORMATION: Fall. COMPARISON: CT brain and cervical spine 08/23/2020 TECHNIQUE: 5 mm thin axial and reformatted 2 mm thin sagittal and coronal images of brain were obtained without contrast. 3 mm thin axial and reformatted 2 mm thin sagittal and coronal images of cervical spine were obtained. FINDINGS: BRAIN: There is no acute intra-axial, extra-axial bleed, masses or midline shift. The lateral ventricles are symmetrical in size and configuration with mild enlargement. There is diffuse periventricular hypodensity without mass effect suggestive of chronic small vessel ischemic changes. There is no edema. Bone windows reveal calvarial abnormality. Bilateral paranasal sinuses and mastoid air cells are well-aerated. CERVICAL SPINE: On sagittal reconstructed images there is normal cervical lordosis. The vertebral heights, alignment is normal. There is loss of C4-C5, C5-C6, C6-C7 and C7-T1 disc heights with ventral and posterior spondylosis. The craniovertebral junction and the C1-C2 alignment is normal. There is no visible acute fracture, dislocation or subluxation seen. The prevertebral and paravertebral soft tissues are normal. There is moderate left C3-C4, C4-C5 facet joint arthropathy and hypertrophy. There is focal left para midline posterior longitudinal ligament calcification posterior to C4 vertebra. The airways are widely patent. There is mild prominent markings in both lung apices likely chronic scarring. CT/CT cervical spine wo con IMPRESSION: No acute intracranial process seen. Mild cerebral volume loss with chronic small vessel ischemic changes. No acute fracture, dislocation or subluxation cervical spine. There are degenerative disc changes and spondylosis in cervical spine.
--- NOTE | ~2020-09-08 | CT_ITS ---
EXAMINATION: CT BRAIN AND CT CERVICAL SPINE WITHOUT CONTRAST. CLINICAL INFORMATION: Fall. COMPARISON: CT brain and cervical spine 08/23/2020 TECHNIQUE: 5 mm thin axial and reformatted 2 mm thin sagittal and coronal images of brain were obtained without contrast. 3 mm thin axial and reformatted 2 mm thin sagittal and coronal images of cervical spine were obtained. FINDINGS: BRAIN: There is no acute intra-axial, extra-axial bleed, masses or midline shift. The lateral ventricles are symmetrical in size and configuration with mild enlargement. There is diffuse periventricular hypodensity without mass effect suggestive of chronic small vessel ischemic changes. There is no edema. Bone windows reveal calvarial abnormality. Bilateral paranasal sinuses and mastoid air cells are well-aerated. CERVICAL SPINE: On sagittal reconstructed images there is normal cervical lordosis. The vertebral heights, alignment is normal. There is loss of C4-C5, C5-C6, C6-C7 and C7-T1 disc heights with ventral and posterior spondylosis. The craniovertebral junction and the C1-C2 alignment is normal. There is no visible acute fracture, dislocation or subluxation seen. The prevertebral and paravertebral soft tissues are normal. There is moderate left C3-C4, C4-C5 facet joint arthropathy and hypertrophy. There is focal left para midline posterior longitudinal ligament calcification posterior to C4 vertebra. The airways are widely patent. There is mild prominent markings in both lung apices likely chronic scarring. CT/CT head/brain wo con IMPRESSION: No acute intracranial process seen. Mild cerebral volume loss with chronic small vessel ischemic changes. No acute fracture, dislocation or subluxation cervical spine. There are degenerative disc changes and spondylosis in cervical spine.
--- NOTE | ~2020-09-08 | XR_ITS ---
EXAMINATION: XR CHEST CLINICAL INFORMATION: Chest pain. COMPARISON: Chest 08/22/2020 TECHNIQUE: Frontal view of the chest was obtained. FINDINGS: The lungs are hypoexpanded with patchy atelectatic changes in both lung bases. The heart size is normal. Pulmonary vascularity is normal. There is dense mitral valve calcification. There is a right jugular central port with its tip in the distal SVC. No gross bony abnormality seen. XR/XR chest 1V IMPRESSION: Hypoexpanded lungs with bibasilar atelectasis.
--- NOTE | ~2020-09-08 | XR_ITS ---
EXAMINATION: BILATERAL HAND CLINICAL INFORMATION: Fall. Pain COMPARISON: None TECHNIQUE: 3 views each hand FINDINGS: Right hand: There is loss of PIP and DIP joint space. The MCP joint space is normal. There is mild soft tissue swelling along the PIP joint all digits. There is mild juxta-articular sclerosis There is no visible acute fracture, dislocation or lytic process seen. The soft tissues are normal. Left hand: There is loss of PIP and DIP joint space all digits. Density joint space is maintained normal. There is mild juxta-articular osteoporosis there is no visible acute fracture, dislocation or subluxation. The soft tissues are normal XR/XR hand RT min 3V IMPRESSION: No acute fracture dislocation either hand. Mild degenerative osteoarthritic changes PIP and DIP joints both hands with mild soft tissue swelling.
--- NOTE | ~2020-09-08 | XR_ITS ---
EXAMINATION: BILATERAL HAND CLINICAL INFORMATION: Fall. Pain COMPARISON: None TECHNIQUE: 3 views each hand FINDINGS: Right hand: There is loss of PIP and DIP joint space. The MCP joint space is normal. There is mild soft tissue swelling along the PIP joint all digits. There is mild juxta-articular sclerosis There is no visible acute fracture, dislocation or lytic process seen. The soft tissues are normal. Left hand: There is loss of PIP and DIP joint space all digits. Density joint space is maintained normal. There is mild juxta-articular osteoporosis there is no visible acute fracture, dislocation or subluxation. The soft tissues are normal XR/XR hand LT min 3V IMPRESSION: No acute fracture dislocation either hand. Mild degenerative osteoarthritic changes PIP and DIP joints both hands with mild soft tissue swelling.
--- NOTE | 2020-09-08 08:51 | ED.GENADULT ---
HPI - General Adult General Chief complaint: Fall Stated complaint: LOW BP Time Seen by Provider: 09/08/20 08:51 Source: patient and family Mode of arrival: ambulatory Limitations: other (cognitive impairment) History of Present Illness complaint: falls Onset (ago): hour(s) (this AM) Location: head Radiation: non-radiation Severity: mild Quality: dull Pain Consistency: constant Relieving factors: none Exacerbating factors: other (hx of frequent falls daughter waiting for hospital bed) Associated symptoms: other (falls, poor appetite, baseline confusion) Treatments prior to arrival: none Related Data Home Medications Medication Instructions Recorded Confirmed apixaban 2.5 mg tablet 2.5 mg PO BID 07/03/20 09/08/20 Ensure 1 ea PO AC 08/23/20 09/08/20 furosemide 20 mg PO DAILY PRN 08/23/20 09/08/20 metoprolol tartrate 25 mg tablet 25 mg PO BID tab 08/25/20 09/08/20 omeprazole 20 mg PO DAILY@0630 PRN 09/08/20 09/08/20 Previous Rx's Medication Instructions Recorded amiodarone 200 mg tablet 200 mg PO DAILY 30 Days #30 tab 03/01/20 levothyroxine 50 mcg tablet 50 mcg PO QAM #30 tab 04/07/20 alprazolam 0.5 mg tablet 0.5 mg PO BID PRN #45 tab 06/12/20 oxycodone 5 mg tablet 5 mg PO TID PRN 7 Days #21 tab 08/01/20 miscellaneous medical supply #1 ea 08/24/20 wheelchair #1 ea 08/24/20 alprazolam [Xanax] 0.5 mg PO BID PRN #8 tab 09/08/20 cefuroxime axetil 250 mg PO BID 6 Days #12 tab 09/08/20 oxycodone 5 mg PO TID PRN #8 tab 09/08/20 Allergies Allergy/AdvReac Type Severity Reaction Status Date / Time amlodipine [[facility] Allergy Intermediate HIVES Verified 06/23/20 12:13 aspirin [ASA] Allergy Intermediate HIVES Verified 06/23/20 12:13 robert [ROBERT] Allergy Intermediate HIVES Verified 01/28/20 19:23 hydrochlorothiazide Allergy Unknown Hives Verified 06/23/20 12:13 gabapentin AdvReac Unknown dizziness Verified 06/23/20 12:13 lisinopril AdvReac Unknown Cough Verified 06/23/20 12:13 Review of Systems Review of Systems: Constitutional : No Weight loss, No Fever, No Chills, pos Fatigue, No Malaise ENT/Mouth : No sore throat, No Rhinorrhea Eyes: No Eye Pain, No Swelling, No Redness Cardiovascular : No Chest Pain, No SOB, No Dyspnea on Exertion, No Orthopnea, No Edema, No Palpitations Respiratory : No Cough, No Sputum, No Wheezing Gastrointestinal : No Nausea, No Vomiting, No Diarrhea, No Constipation, No abdominal Pain, No Hematochezia, No Melena Genitourinary : No Dysuria, No Urinary Frequency, No Hematuria, Musculoskeletal : No joint pain, No Myalgias, No Joint Swelling Skin : No Skin Lesions, No rash, pos abrasions Neuro : pos Weakness, No Numbness, No Dizziness, No Headache Psych : No Anxiety/Panic, No Depression Heme/Lymph: No Bruising, No Bleeding,No Lymphadenopathy Endocrine : No Polyuria, No Polydipsia All other systems reviewed and are negative [facility] Past Medical History Attestation statement: The following information was validated with the patient. Medical History Anxiety Ramos's palsy Cervical cancer Cognitive impairment Congestive heart failure DVT (deep venous thrombosis) GERD (gastroesophageal reflux disease) Hydronephrosis Hypercholesterolemia Hypertension Lumbar degenerative disc disease Obstructive uropathy Osteoarthritis Paroxysmal atrial fibrillation Peripheral vascular disease Vitamin D deficiency Surgical History H/O elbow surgery History of bladder surgery History of cholecystectomy Family History Family History Father Hypertension Stroke CVD (cardiovascular disease) Mother Hypoglycemia Social History Social History Household Members: Family Household Members Other:: Daughter lives on second floor Housing: Apartment Alcohol intake: never Smoking Status: Never smoker Second Hand Smoke Exposure: No Use of substances other than those prescribed or required for medical reasons: No Advance Directives: Yes Advance Directives on File: Yes Advance Directives Date on File: 09/08/20 service: No Current occupational status: disabled Physical Exam Vital Signs: Vital Signs: Last Vital Signs Temp 97.7 F 09/08/20 09:09 Pulse 98 09/08/20 11:27 Resp 16 09/08/20 11:12 BP 141/76 H 09/08/20 11:27 Pulse Ox 98 09/08/20 11:27 Body Mass Index 23.0 Appearance: Alert. Oriented X3. No acute distress. Eyes: Pupils equal, round and reactive to light. ENT: Pharynx normal. contusion to L forehead, abrasions on bridge of nose Neck: Normal inspection. Neck supple. CVS: Normal heart rate and rhythm. Pulses normal. Respiratory: No respiratory distress. Breath sounds normal. Abdomen: Soft and nontender. Skin: Skin warm and dry. Normal skin color. Normal skin turgor. Extremities: No lower extremity edema. No calf ttp Neuro: Oriented X 3. No motor deficit. No sensory deficit. Course Course Course Narrative: BP stable, medically cleared at this time kidney function at baseline Patient placed in physician observation at 1056am. The indication for observation is that the patient needs more time to be evaluated for STR for CM due to fall risk. At this time the patient is well developed well nourished, lungs clear, CV RRR, abd nontender, neuro is intact. + UTI last culture susceptible treat with rocephin and ceftin no signs of sepsis Physician observation ended at 133pm. Patient seen and cleared by PT/CM Plan is to follow up with STR. NAD, lungs clear, CV RRR, Abd nontender, Neuro intact. Disposition is for [place] Medical Decision Making [facility] Narrative Medical decision making narrative: 85 yo female with falls, UTI, dementia, anemia, JOVON, HPL, PAF on afib comes after fall at home, trying to get up on her own hx of same in the past, daughter heard the fall no LOC, patient denies preceding symptoms - daughter checked BP 60/40s at home, daughter very worried and feels like right now she cannot manage her at home due to falls - at this time labs, UA, CT scan for trauma, EKG, dispo per results and findings. Lab Data Result diagrams: 09/08/20 09:32 09/08/20 09:32 Labs: Lab Results 09/08/20 09/08/20 09/08/20 Range/Units 09:32 09:32 09:32 WBC 5.6 (4.8-10.8) X10*3/uL RBC 3.42 L (4.20-5.50) X10*6/uL Hgb 10.4 L (12.0-16.0) g/dl Hct 33.0 L (37-47) % MCV 96.5 (80-98) fL MCH 30.4 (27.0-33.0) pg MCHC 31.5 (31.0-35.0) g/dl RDW 15.9 (11.0-16.0) % Plt Count 296 (160-400) X10*3/uL MPV 9.5 (9.4-12.3) fL Immature Gran % (Auto) 0.2 (0.0-0.4) % Neut % (Auto) 72.0 (45-73) % Lymph % (Auto) 17.8 L (20-40) % [place] % (Auto) 8.4 (2-11) % Eos % (Auto) 1.4 (0-4) % Baso % (Auto) 0.2 (0-2) % Lymph # (Auto) 1.0 L (1.2-4.9) X10*3/uL [place] # (Auto) 0.5 (0.1-1.2) X10*3/uL Eos # (Auto) 0.1 (0.0-0.4) X10*3/uL Baso # (Auto) 0.0 (0.0-0.2) X10*3/uL Abs Immat Gran (auto) 0.01 (0.00-0.03) X10*3/uL Absolute Neuts (auto) 4.1 (2.0-8.3) X10*3/uL Absolute Nucleated RBC 0.000 (0.0-0.012) X10*3/uL Nucleated RBC % (auto) 0.0 (0.0-0.2) /100WBC PT (10.8-13.0) SEC INR (0.9-1.1) APTT (24.1-38.0) SEC Sodium 140 (135-145) mmol/L Potassium 4.2 (3.3-5.1) mmol/L Chloride 107 (96-108) mmol/L Carbon Dioxide 24 (22-29) mmol/L Anion Gap 13 (12-20) BUN 26 H (9-16) mg/dL Creatinine 1.85 H (0.5-1.4) mg/dL Estim Creat Clear Calc 15.4 Estimated GFR 26 Random Glucose 94 (60-115) mg/dL Calcium 8.3 L (8.4-10.2) mg/dL Magnesium 2.1 (1.6-2.6) mg/dL Total Bilirubin 0.4 (0.0-1.0) mg/dL Direct Bilirubin 0.2 (0.0-0.5) mg/dL AST 36 H D (5-31) U/L ALT 29 (0-31) U/L Alkaline Phosphatase 168 H (39-117) U/L Total Creatine Kinase 33 (26-140) U/L Troponin I High Sens (<3.5-17.0) ng/L Total Protein 6.6 (6.5-8.0) g/dL Albumin 3.1 L (3.5-5.0) g/dL Urine Color Urine Appearance Urine pH (5.0-8.0) Ur Specific [place] (1.005-1.025) Urine Protein (NEG-TRACE) MG/DL Urine Glucose (UA) (NEG) MG/DL Urine Ketones (NEG) MG/DL Urine Blood (NEG) Urine Nitrite (NEG) Ur Leukocyte Esterase (NEG) Urine RBC (0) /HPF Urine WBC (0-4) /HPF Ur Squamous Epith Cells /LPF Urine Bacteria /LPF Urine Yeast /HPF COVID-19 ([place]) Negative (Negative) COVID-19 Clin Com See Note 09/08/20 09/08/20 09/08/20 Range/Units 09:32 09:32 11:15 WBC (4.8-10.8) X10*3/uL RBC (4.20-5.50) X10*6/uL Hgb (12.0-16.0) g/dl Hct (37-47) % MCV (80-98) fL MCH (27.0-33.0) pg MCHC (31.0-35.0) g/dl RDW (11.0-16.0) % Plt Count (160-400) X10*3/uL MPV (9.4-12.3) fL Immature Gran % (Auto) (0.0-0.4) % Neut % (Auto) (45-73) % Lymph % (Auto) (20-40) % [place] % (Auto) (2-11) % Eos % (Auto) (0-4) % Baso % (Auto) (0-2) % Lymph # (Auto) (1.2-4.9) X10*3/uL [place] # (Auto) (0.1-1.2) X10*3/uL Eos # (Auto) (0.0-0.4) X10*3/uL Baso # (Auto) (0.0-0.2) X10*3/uL Abs Immat Gran (auto) (0.00-0.03) X10*3/uL Absolute Neuts (auto) (2.0-8.3) X10*3/uL Absolute Nucleated RBC (0.0-0.012) X10*3/uL Nucleated RBC % (auto) (0.0-0.2) /100WBC PT 19.5 H (10.8-13.0) SEC INR 1.6 H (0.9-1.1) APTT 40.1 H (24.1-38.0) SEC Sodium (135-145) mmol/L Potassium (3.3-5.1) mmol/L Chloride (96-108) mmol/L Carbon Dioxide (22-29) mmol/L Anion Gap (12-20) BUN (9-16) mg/dL Creatinine (0.5-1.4) mg/dL Estim Creat Clear Calc Estimated GFR Random Glucose (60-115) mg/dL Calcium (8.4-10.2) mg/dL Magnesium (1.6-2.6) mg/dL Total Bilirubin (0.0-1.0) mg/dL Direct Bilirubin (0.0-0.5) mg/dL AST (5-31) U/L ALT (0-31) U/L Alkaline Phosphatase (39-117) U/L Total Creatine Kinase (26-140) U/L Troponin I High Sens 8.5 D (<3.5-17.0) ng/L Total Protein (6.5-8.0) g/dL Albumin (3.5-5.0) g/dL Urine Color [place]AW Urine Appearance CLOUDY Urine pH 6.5 (5.0-8.0) Ur Specific [place] 1.020 (1.005-1.025) Urine Protein 2+ H (NEG-TRACE) MG/DL Urine Glucose (UA) NEG (NEG) MG/DL Urine Ketones NEG (NEG) MG/DL Urine Blood 3+ H (NEG) Urine Nitrite POS H (NEG) Ur Leukocyte Esterase 2+ H (NEG) Urine RBC 5-9 H (0) /HPF Urine WBC 76-150 H (0-4) /HPF Ur Squamous Epith Cells TRACE /LPF Urine Bacteria TRACE /LPF Urine Yeast TRACE /HPF COVID-19 ([place]) (Negative) COVID-19 Clin Com ECG Data Attestation: I personally reviewed and interpreted this ECG as follows: Interpretation: Rate: 93 Rhythm: afib [place]: left, LVH widened QRS complex. ST T wave : nonspecific, invertd I and aVL, no AYLIN qTC: normal prior studies: no change from prior The study has been interpreted contemporaneously by me. . Discharge Plan Discharge Clinical Impression: Acute UTI Falls Qualifiers: Encounter type: initial encounter Qualified Code(s): W19.XXXA - Unspecified fall, initial encounter Head injury Qualifiers: Encounter type: initial encounter Qualified Code(s): S09.90XA - Unspecified injury of head, initial encounter CKD (chronic kidney disease) Qualifiers: Chronic kidney disease stage: unspecified stage Qualified Code(s): N18.9 - Chronic kidney disease, unspecified Patient Disposition: Xfer [facility] Instructions: Urinary Tract Infection in Older Adults (ED) Additional Instructions: return to ED for any worsening symptoms or concerns CEFTIN 250mg BID for 6 more days Prescriptions: New alprazolam [Xanax] 0.5 mg tablet 0.5 mg PO BID PRN (Reason: anxiety) Qty: 8 RF: 0 oxycodone 5 mg tablet 5 mg PO TID PRN (Reason: pain) Qty: 8 RF: 0 cefuroxime axetil 250 mg tablet 250 mg PO BID 6 Days Qty: 12 RF: 0 No Action amiodarone 200 mg tablet 200 mg PO DAILY 30 Days Qty: 30 RF: 5 levothyroxine 50 mcg tablet 50 mcg PO QAM Qty: 30 RF: 4 alprazolam 0.5 mg tablet 0.5 mg PO BID PRN (Reason: Anxiety) Qty: 45 RF: 0 oxycodone 5 mg tablet 5 mg PO TID PRN (Reason: pain) 7 Days Qty: 21 RF: 0 (DME) miscellaneous medical supply Misc See Rx Instructions .ROUTE .MEDSUPPLY Qty: 1 RF: 0 (DME) wheelchair See Rx Instructions .Route .MEDSUPPLY Qty: 1 RF: 0 metoprolol tartrate 25 mg tablet 25 mg PO BID RF: 0 furosemide 20 mg Tablet 20 mg PO DAILY PRN (Reason: Edema) RF: 0 Ensure Liquid 1 ea PO AC RF: 0 omeprazole 20 mg capsule,delayed release(DR/EC) 20 mg PO DAILY@0630 PRN (Reason: Acid Reflux) RF: 0 Eliquis 2.5 mg tablet 2.5 mg PO BID RF: 0 Hold Instructions: Resume on 08/28/20. Referrals: Mary Jane Hutchins [Outside] - 2 days Po,Renu Ignacio MD [Primary Care Provider] - 2 days
--- NOTE | 2020-09-08 09:01 | ECG_ITS ---
Test Reason : FALL Blood Pressure : / mmHG Vent. Rate : 093 BPM Atrial Rate : 077 BPM P-R Int : 000 ms QRS Dur : 104 ms QT Int : 410 ms P-R-T Axes : 000 -30 107 degrees QTc Int : 509 ms Atrial fibrillation Left axis deviation Moderate voltage criteria for LVH, may be normal variant Cannot rule out Septal infarct (cited on or before 11-JUN-2020) ST & T wave abnormality, consider lateral ischemia Abnormal ECG When compared with ECG of 22-AUG-2020 13:50, Atrial fibrillation has replaced Atrial tachycardia Referred By: Narda Elias Electronically Signed By:LAURY CHRISTIANSON MD
[2020-09-08 09:02] VITALS: BP 152/91; PULSE 97; RESP 19; TEMP 36.5; O2SAT 98; BMI 23.0
[2020-09-08 09:09] VITALS: BP 152/91; PULSE 96; RESP 17; TEMP 36.5; O2SAT 100
[2020-09-08] MEDS: 0.9 % Sodium Chloride 500 ML IV (09:35)
[2020-09-08 09:39] LABS: MANUAL DIFF FLAG NO
[2020-09-08 09:40] LABS: Basophils Percent Auto 0.2 % (0-2); Eosinophils Absolute Auto 0.1 X10*3/uL (0.0-0.4); Eosinophils Percent Auto 1.4 % (0-4); Hemoglobin 10.4 g/dl (12.0-16.0); Imm Gran Abs Auto 0.01 X10*3/uL (0.00-0.03); Imm Gran Pct Auto 0.2 % (0.0-0.4); Lymphocytes Percent Auto 17.8 % (20-40); Mean Corpuscular HGB Conc 31.5 g/dl (31.0-35.0); Mean Corpuscular Hemoglobin 30.4 pg (27.0-33.0); Mean Corpuscular Volume 96.5 fL (80-98); Mean Platelet Volume 9.5 fL (9.4-12.3); Monocytes Absolute Auto 0.5 X10*3/uL (0.1-1.2); Monocytes Percent Auto 8.4 % (2-11); Neutrophils Absolute Auto 4.1 X10*3/uL (2.0-8.3); Platelet Count 296 X10*3/uL (160-400); Red Blood Count 3.42 X10*6/uL (4.20-5.50); Red Cell Distribution Width 15.9 % (11.0-16.0); White Blood Count 5.6 X10*3/uL (4.8-10.8)
--- NOTE | 2020-09-08 09:41 | PC.NURSE ---
Pt alert, oriented to self, Slovak speaking primarily, VSS. Daughter reports pt fell this a.m. hitting face, abrasions to right and left, lip swollen and red, no LOC. Neuros intact, hand grasps equal, moves all extremities without difficulty. X-ray done, IV established, Fluids hung. Pt awaiting CT scan, daughter at bedside.
[2020-09-08 09:48] LABS: INTERNATIONAL NORM RATIO 1.6 (0.9-1.1); Prothrombin Time 19.5 SEC (10.8-13.0)
[2020-09-08 09:51] LABS: Partial Thromboplastin Time 40.1 SEC (24.1-38.0)
[2020-09-08 10:04] LABS: COVID-19 Test Negative (Negative); IDNOW Serial# 9DD0AD1C
[2020-09-08 10:08] LABS: Troponin-I High Sensitivity 8.5 ng/L (<3.5-17.0)
[2020-09-08 10:10] LABS: Alanine Aminotransferase 29 U/L (0-31); Albumin Level 3.1 g/dL (3.5-5.0); Alkaline Phosphatase 168 U/L (39-117); Anion Gap 13 (12-20); Aspartate Amino Transferase 36 U/L (5-31); Bilirubin Direct 0.2 mg/dL (0.0-0.5); Bilirubin Total 0.4 mg/dL (0.0-1.0); Blood Urea Nitrogen 26 mg/dL (9-16); Calcium 8.3 mg/dL (8.4-10.2); Carbon Dioxide 24 mmol/L (22-29); Chloride 107 mmol/L (96-108); Creatinine Clr Calc Pharmacy 15.4; Estimated Glomerular Filt Rate 26; Glucose Random 94 mg/dL (60-115); Magnesium 2.1 mg/dL (1.6-2.6); Potassium 4.2 mmol/L (3.3-5.1); Sodium 140 mmol/L (135-145); Total Protein 6.6 g/dL (6.5-8.0)
[2020-09-08 11:12] VITALS: BP 141/76; PULSE 98; RESP 16; O2SAT 98
--- NOTE | 2020-09-08 11:21 | PC.NURSE ---
Physical therapy at bedside
[2020-09-08 11:27] VITALS: BP 141/76; PULSE 98; O2SAT 98
[2020-09-08 11:27] LABS: Glucose Urine UA NEG (NEG); Leukocyte Esterase Urine 2+ (NEG); Nitrite Urine POS (NEG); PH 6.5 (5.0-8.0); UACC Culture Trigger YES; Urine Blood 3+ (NEG); Urine Ketones NEG (NEG); Urine Protein 2+ MG/DL (NEG-TRACE)
[2020-09-08 11:30] LABS: Appearance Urine CLOUDY; Color Urine STRAW
[2020-09-08 11:41] LABS: Bacteria Urine TRACE /LPF; Squamous Epithelial Cell Urine TRACE /LPF
--- NOTE | 2020-09-08 12:31 | MHC.CM.ED ---
Received case management consult from Dr Elias. Patient came to ER due to low blood pressure. Physical therapy eval completed. 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 Met with patient and daughter, Alina. Patient lives alone, has a walker/wheelchair for mobility, has [employer] hours through [facility] and nursing services through [facility]. PCP verified. Copy of HCP verified to be on file. Per Alina, patient was discharged from the hospital 3 weeks ago. Since that time she has been trying to work with Weston Diaz and Jhonny and the patient's PCP in order to get a hospital bed and more hours. This still has not been completed yet. Alina feels patient is not safe to be home. List of facilities provided to Alina. [facility] is her first choice. Referral made via [employer]. Alina will provide t/w with an additional facility, just in case [facility] is unable to offer a bed. Continue to monitor for d/c needs.
[2020-09-08] MEDS: cefTRIAXone sodium 1 GM in 0.9 % Sodium Chloride 50 ML IV (12:39)
--- NOTE | 2020-09-08 13:19 | MHC.CM.ED ---
[facility] will not have a bed until Friday. They are willing to accept patient at Day and transfer to [facility] on Friday. Spoke with patient's daughter Alina. Alina requesting referrals to the following facilities: 1)[facility] 2)[facility]. Referrals made via [employer]. [facility] is able to offer a bed. Alina has accepted this bed. Continue to monitor for d/c needs.
--- NOTE | 2020-09-08 13:31 | MHC.CM.ED ---
Per Salvatore at [facility], patient can leave ER at 330pm. [facility] booked. Med nec with chart. Patient, daughter Rylie Fuller RN and Dr Elias aware. Alina is upset she can't visit her mother without checking with the facility but verbalizes understanding. Continue to monitor for d/c needs.
--- NOTE | 2020-09-08 13:48 | PC.NURSE ---
Plan for pt to be transferred to [facility] in [place] at 1500, pt refuses vitals at this time, will attempt to reapproach
--- NOTE | 2020-09-08 15:13 | PC.NURSE ---
Report given to ANDRE Ewing at [place].
== END 2020-09-08 15:30 | disposition skilled nursing facility (03) ==
PROVIDERS: Emergency Provider Emergency Medicine; PCP Internal Medicine
DX: S09.93XA Unspecified injury of face, initial encounter (principal); G30.9 Alzheimer's disease, unspecified; I48.91 Unspecified atrial fibrillation; G44.309 Post-traumatic headache, unspecified, not intractable; Z20.822 Contact with and (suspected) exposure to COVID-19; W06.XXXA Fall from bed, initial encounter; Y93.9 Activity, unspecified; Y92.003 Bedroom of unspecified non-institutional (private) residence as the place of occurrence of the external cause; Y99.9 Unspecified external cause status; Z91.81 History of falling; Z79.01 Long term (current) use of anticoagulants
CPT/HCPCS: 36415; 51702; 70450; 71045; 72125; 73130; 80048; 80076; 81001; 81003; 82550; 83735; 84484; 85025; 85610; 85730; 87086; 87088; 87186; 87635; 93005; 96360; 96361; 97161; 99284; J0696

== ENCOUNTER 2020-09-21 10:40 | Emergency (ER) | payer MEDICARE, MEDICAID, SELFPAY ==
--- NOTE | ~2020-09-21 | XR_ITS ---
EXAMINATION: XR CHEST CLINICAL INFORMATION: Weakness COMPARISON: Portable chest radiographs 09/08/2020, 08/22/2020, CT chest 07/23/2020. TECHNIQUE: Portable upright AP view of the chest was obtained. FINDINGS: Patient is rotated to the right. There is a stable tunneled port with tip overlying the right atrium. Heavy mitral annulus calcification again seen. The heart is normal in size. There is no hyperinflation, airspace consolidation, or effusion. Vascularity is normal. The costophrenic sulci are clear. Bony structures again show multilevel degenerative changes thoracic spine and multiple left rib fractures as seen on recent CT chest. XR/XR chest 1V IMPRESSION: No acute intrathoracic disease.
--- NOTE | 2020-09-21 10:42 | ED.SYNCOPE ---
HPI - Syncope General Chief Complaint: Syncope Stated Complaint: SYNCOPAL EPISODE @ SNF Time Seen by Provider: 09/21/20 10:41 Source: patient and EMS Mode of arrival: EMS Limitations: altered mental status History of Present Illness HPI narrative: frequent falls at home, at facility now poor PO intake, out in heat yesterday, standing patinet up per staff and daughter she almost fells, BP at facility noted to bp in 80s, attempted IVF yesterday at facility per RN but patient refused. daughter very involved and notes patietn did not eat during her visit yesterday complaint: almost passed out Onset (ago): day(s) (1) -: second(s) Prodromal symptoms: none Witnessed: Yes - by Other Context: standing up Injuries sustained associated with event: none Current symptoms: back to baseline History: previous syncopal episode Treatments prior to arrival: none Related Data Home Medications Medication Instructions Recorded Confirmed apixaban 2.5 mg tablet 2.5 mg PO BID 07/03/20 09/08/20 Ensure 1 ea PO AC 08/23/20 09/08/20 furosemide 20 mg PO DAILY PRN 08/23/20 09/08/20 metoprolol tartrate 25 mg tablet 25 mg PO BID tab 08/25/20 09/08/20 omeprazole 20 mg PO DAILY@0630 PRN 09/08/20 09/08/20 Previous Rx's Medication Instructions Recorded amiodarone 200 mg tablet 200 mg PO DAILY 30 Days #30 tab 03/01/20 levothyroxine 50 mcg tablet 50 mcg PO QAM #30 tab 04/07/20 alprazolam 0.5 mg tablet 0.5 mg PO BID PRN #45 tab 06/12/20 oxycodone 5 mg tablet 5 mg PO TID PRN 7 Days #21 tab 08/01/20 miscellaneous medical supply #1 ea 08/24/20 wheelchair #1 ea 08/24/20 alprazolam [Xanax] 0.5 mg PO BID PRN #8 tab 09/08/20 cefuroxime axetil 250 mg PO BID 6 Days #12 tab 09/08/20 oxycodone 5 mg PO TID PRN #8 tab 09/08/20 Allergies Allergy/AdvReac Type Severity Reaction Status Date / Time amlodipine [From NORVASC] Allergy Intermediate HIVES Verified 06/23/20 12:13 aspirin [ASA] Allergy Intermediate HIVES Verified 06/23/20 12:13 robert [ROBERT] Allergy Intermediate HIVES Verified 01/28/20 19:23 hydrochlorothiazide Allergy Unknown Hives Verified 06/23/20 12:13 gabapentin AdvReac Unknown dizziness Verified 06/23/20 12:13 lisinopril AdvReac Unknown Cough Verified 06/23/20 12:13 Review of Systems Review of Systems: ROS unable to be obtained due to cognitive impairment [facility] Past Medical History Attestation statement: The following information was validated with the patient. Medical History Anxiety Ramos's palsy Cervical cancer Cognitive impairment Congestive heart failure DVT (deep venous thrombosis) GERD (gastroesophageal reflux disease) Hydronephrosis Hypercholesterolemia Hypertension Lumbar degenerative disc disease Obstructive uropathy Osteoarthritis Paroxysmal atrial fibrillation Peripheral vascular disease Vitamin D deficiency Surgical History H/O elbow surgery History of bladder surgery History of cholecystectomy Family History Family History Father Hypertension Stroke CVD (cardiovascular disease) Mother Hypoglycemia Social History Social History Household Members: Family Household Members Other:: Daughter lives on second floor Housing: Apartment Do you presently have visiting nurse or other home services: Yes Alcohol intake: never Second Hand Smoke Exposure: No Advance Directives: Yes Advance Directives on File: Yes Advance Directives Date on File: 09/08/20 service: No Current occupational status: disabled Physical Exam Vital Signs: Vital Signs: Last Vital Signs Temp 98.0 F 09/21/20 10:57 Pulse 107 H 09/21/20 12:18 Resp 18 09/21/20 12:18 BP 108/72 09/21/20 12:18 Pulse Ox 97 09/21/20 12:18 Body Mass Index 17.2 Appearance: Alert. Confused. No acute distress. Anxious Eyes: Pupils equal, round and reactive to light. ENT: Pharynx dry MM healed laceration to the scalp Neck: Normal inspection. Neck supple. CVS: irregular heart rate and rhythm. Pulses normal. Respiratory: No respiratory distress. Breath sounds normal. Abdomen: Soft and nontender. Skin: Skin warm and dry. Normal skin color. poor skin turgor. Extremities: No lower extremity edema. No calf ttp old bandages noted on extremities from venipuncture Neuro: confused. No motor deficit. No sensory deficit. Course Course Course Narrative: daughter does not want treatment other than fluids and antibiotics, aware of troponin does not want it worked up, wants her to go back to facility will place back on abx and DC back to SNF as daughter wishes Procedures Procedure Narrative Procedure Narrative: removal of 7 clay from scalp clean dry intact tolerated well MDM - Syncope MDM Narrative Medical decision making narrative: 85 yo female with dementiam afib no longer on AC therapy given frequent falls, CKD, chronic UTIs here with weakness, poor PO intake, when standing near syncopal events since ysterday, at this time will need labs, IVF, EKG, no trauma noted, can remove clay at this time, CXR and UA for infection, suspect poor PO intake as cause of symptoms Lab Data Result diagrams: 09/21/20 12:07 09/21/20 12:06 Labs: Lab Results 09/21/20 09/21/20 09/21/20 Range/Units 12:06 12:07 12:07 WBC 7.7 (4.8-10.8) X10*3/uL RBC 3.23 L (4.20-5.50) X10*6/uL Hgb 9.7 L (12.0-16.0) g/dl Hct 30.1 L (37-47) % MCV 93.2 (80-98) fL MCH 30.0 (27.0-33.0) pg MCHC 32.2 (31.0-35.0) g/dl RDW 15.9 (11.0-16.0) % Plt Count 260 (160-400) X10*3/uL MPV 9.7 (9.4-12.3) fL Immature Gran % (Auto) 0.4 (0.0-0.4) % Neut % (Auto) 80.6 H (45-73) % Lymph % (Auto) 12.7 L (20-40) % [place] % (Auto) 5.8 (2-11) % Eos % (Auto) 0.4 (0-4) % Baso % (Auto) 0.1 (0-2) % Lymph # (Auto) 1.0 L (1.2-4.9) X10*3/uL [place] # (Auto) 0.5 (0.1-1.2) X10*3/uL Eos # (Auto) 0.0 (0.0-0.4) X10*3/uL Baso # (Auto) 0.0 (0.0-0.2) X10*3/uL Abs Immat Gran (auto) 0.03 (0.00-0.03) X10*3/uL Absolute Neuts (auto) 6.2 (2.0-8.3) X10*3/uL Absolute Nucleated RBC 0.000 (0.0-0.012) X10*3/uL Nucleated RBC % (auto) 0.0 (0.0-0.2) /100WBC Hold Blue Top SEE NOTE Sodium 136 (135-145) mmol/L Potassium 4.1 (3.3-5.1) mmol/L Chloride 104 (96-108) mmol/L Carbon Dioxide 22 (22-29) mmol/L Anion Gap 14 (12-20) BUN 26 H (9-16) mg/dL Creatinine 2.19 H (0.5-1.4) mg/dL Estim Creat Clear Calc 12.1 Estimated GFR 21 Random Glucose 105 (60-115) mg/dL Lactic Acid (0.5-2.0) mmol/L Calcium 8.2 L (8.4-10.2) mg/dL Magnesium 2.1 (1.6-2.6) mg/dL Total Bilirubin 0.3 (0.0-1.0) mg/dL Direct Bilirubin 0.2 (0.0-0.5) mg/dL AST 15 D (5-31) U/L ALT 9 (0-31) U/L Alkaline Phosphatase 117 D (39-117) U/L Total Creatine Kinase 33 (26-140) U/L Troponin I High Sens (<3.5-17.0) ng/L Total Protein 6.2 L (6.5-8.0) g/dL Albumin 3.0 L (3.5-5.0) g/dL Lipase 6 L (8-78) U/L Urine Color Urine Appearance Urine pH (5.0-8.0) Ur Specific [place] (1.005-1.025) Urine Protein (NEG-TRACE) MG/DL Urine Glucose (UA) (NEG) MG/DL Urine Ketones (NEG) MG/DL Urine Blood (NEG) Urine Nitrite (NEG) Ur Leukocyte Esterase (NEG) Urine RBC (0) /HPF Urine WBC (0-4) /HPF Ur Squamous Epith Cells /LPF Urine Bacteria /LPF Urine Yeast /HPF COVID-19 ([place]) COVID-19 Clin Com 09/21/20 09/21/20 09/21/20 Range/Units 12:08 12:08 12:08 WBC (4.8-10.8) X10*3/uL RBC (4.20-5.50) X10*6/uL Hgb (12.0-16.0) g/dl Hct (37-47) % MCV (80-98) fL MCH (27.0-33.0) pg MCHC (31.0-35.0) g/dl RDW (11.0-16.0) % Plt Count (160-400) X10*3/uL MPV (9.4-12.3) fL Immature Gran % (Auto) (0.0-0.4) % Neut % (Auto) (45-73) % Lymph % (Auto) (20-40) % Crockett % (Auto) (2-11) % Eos % (Auto) (0-4) % Baso % (Auto) (0-2) % Lymph # (Auto) (1.2-4.9) X10*3/uL [place] # (Auto) (0.1-1.2) X10*3/uL Eos # (Auto) (0.0-0.4) X10*3/uL Baso # (Auto) (0.0-0.2) X10*3/uL Abs Immat Gran (auto) (0.00-0.03) X10*3/uL Absolute Neuts (auto) (2.0-8.3) X10*3/uL Absolute Nucleated RBC (0.0-0.012) X10*3/uL Nucleated RBC % (auto) (0.0-0.2) /100WBC Hold Blue Top Sodium (135-145) mmol/L Potassium (3.3-5.1) mmol/L Chloride (96-108) mmol/L Carbon Dioxide (22-29) mmol/L Anion Gap (12-20) BUN (9-16) mg/dL Creatinine (0.5-1.4) mg/dL Estim Creat Clear Calc Estimated GFR Random Glucose (60-115) mg/dL Lactic Acid 0.8 (0.5-2.0) mmol/L Calcium (8.4-10.2) mg/dL Magnesium (1.6-2.6) mg/dL Total Bilirubin (0.0-1.0) mg/dL Direct Bilirubin (0.0-0.5) mg/dL AST (5-31) U/L ALT (0-31) U/L Alkaline Phosphatase (39-117) U/L Total Creatine Kinase (26-140) U/L Troponin I High Sens 110.4 H* (<3.5-17.0) ng/L Total Protein (6.5-8.0) g/dL Albumin (3.5-5.0) g/dL Lipase (8-78) U/L Urine Color Urine Appearance Urine pH (5.0-8.0) Ur Specific [place] (1.005-1.025) Urine Protein (NEG-TRACE) MG/DL Urine Glucose (UA) (NEG) MG/DL Urine Ketones (NEG) MG/DL Urine Blood (NEG) Urine Nitrite (NEG) Ur Leukocyte Esterase (NEG) Urine RBC (0) /HPF Urine WBC (0-4) /HPF Ur Squamous Epith Cells /LPF Urine Bacteria /LPF Urine Yeast /HPF COVID-[place] ([place]) Cancelled COVID-19 Clin Com Cancelled 09/21/20 09/21/20 Range/Units 12:27 12:43 WBC (4.8-10.8) X10*3/uL RBC (4.20-5.50) X10*6/uL Hgb (12.0-16.0) g/dl Hct (37-47) % MCV (80-98) fL MCH (27.0-33.0) pg MCHC (31.0-35.0) g/dl RDW (11.0-16.0) % Plt Count (160-400) X10*3/uL MPV (9.4-12.3) fL Immature Gran % (Auto) (0.0-0.4) % Neut % (Auto) (45-73) % Lymph % (Auto) (20-40) % Crockett % (Auto) (2-11) % Eos % (Auto) (0-4) % Baso % (Auto) (0-2) % Lymph # (Auto) (1.2-4.9) X10*3/uL [place] # (Auto) (0.1-1.2) X10*3/uL Eos # (Auto) (0.0-0.4) X10*3/uL Baso # (Auto) (0.0-0.2) X10*3/uL Abs Immat Gran (auto) (0.00-0.03) X10*3/uL Absolute Neuts (auto) (2.0-8.3) X10*3/uL Absolute Nucleated RBC (0.0-0.012) X10*3/uL Nucleated RBC % (auto) (0.0-0.2) /100WBC Hold Blue Top Sodium (135-145) mmol/L Potassium (3.3-5.1) mmol/L Chloride (96-108) mmol/L Carbon Dioxide (22-29) mmol/L Anion Gap (12-20) BUN (9-16) mg/dL Creatinine (0.5-1.4) mg/dL Estim Creat Clear Calc Estimated GFR Random Glucose (60-115) mg/dL Lactic Acid (0.5-2.0) mmol/L Calcium (8.4-10.2) mg/dL Magnesium (1.6-2.6) mg/dL Total Bilirubin (0.0-1.0) mg/dL Direct Bilirubin (0.0-0.5) mg/dL AST (5-31) U/L ALT (0-31) U/L Alkaline Phosphatase (39-117) U/L Total Creatine Kinase (26-140) U/L Troponin I High Sens (<3.5-17.0) ng/L Total Protein (6.5-8.0) g/dL Albumin (3.5-5.0) g/dL Lipase (8-78) U/L Urine Color YELLOW Urine Appearance CLOUDY Urine pH 6.0 (5.0-8.0) Ur Specific [place] 1.025 (1.005-1.025) Urine Protein 2+ H (NEG-TRACE) MG/DL Urine Glucose (UA) NEG (NEG) MG/DL Urine Ketones 5 (NEG) MG/DL Urine Blood 2+ H (NEG) Urine Nitrite NEG (NEG) Ur Leukocyte Esterase 2+ H (NEG) Urine RBC 10-14 H (0) /HPF Urine WBC TNTC H (0-4) /HPF Ur Squamous Epith Cells NONE /LPF Urine Bacteria TRACE /LPF Urine Yeast 2+ /HPF COVID-19 ([place]) Negative COVID-19 Clin Com See Note ECG Data Attestation: I personally reviewed and interpreted this ECG as follows: ECG interpretation date: 09/21/20 ECG interpretation time: 11:17 Interpretation: Rate: 96 Rhythm: afib [place]: left, LVH Normal P waves. Normal NUNU. Normal QRS complex. ST T wave : nonspecific, no AYLIN qTC: prolonged prior studies: no acute ischemia The study has been interpreted contemporaneously by me. . Discharge Plan Discharge Clinical Impression: Elevated troponin, Acute dehydration, Acute UTI Patient Disposition: er SNF Instructions: Dehydration (ED), Urinary Tract Infection in Women (ED) Additional Instructions: return to ED for any worsening symptoms or concerns given 1L fluid bolus GIVEN CEFEPIME 1G IV NEEDS TO CONTINUE ON ANTIBIOTICS CEFTIN 250MG BID X 10 DAYS Prescriptions: No Action amiodarone 200 mg tablet 200 mg PO DAILY 30 Days Qty: 30 RF: 5 levothyroxine 50 mcg tablet 50 mcg PO QAM Qty: 30 RF: 4 alprazolam 0.5 mg tablet 0.5 mg PO BID PRN (Reason: Anxiety) Qty: 45 RF: 0 oxycodone 5 mg tablet 5 mg PO TID PRN (Reason: pain) 7 Days Qty: 21 RF: 0 (DME) miscellaneous medical supply Misc See Rx Instructions .ROUTE .MEDSUPPLY Qty: 1 RF: 0 (DME) wheelchair See Rx Instructions .Route .MEDSUPPLY Qty: 1 RF: 0 metoprolol tartrate 25 mg tablet 25 mg PO BID RF: 0 furosemide 20 mg Tablet 20 mg PO DAILY PRN (Reason: Edema) RF: 0 Ensure Liquid 1 ea PO AC RF: 0 omeprazole 20 mg capsule,delayed release(DR/EC) 20 mg PO DAILY@0630 PRN (Reason: Acid Reflux) RF: 0 alprazolam [Xanax] 0.5 mg tablet 0.5 mg PO BID PRN (Reason: anxiety) Qty: 8 RF: 0 oxycodone 5 mg tablet 5 mg PO TID PRN (Reason: pain) Qty: 8 RF: 0 cefuroxime axetil 250 mg tablet 250 mg PO BID 6 Days Qty: 12 RF: 0 Eliquis 2.5 mg tablet 2.5 mg PO BID RF: 0 Hold Instructions: Resume on 08/28/20.
--- NOTE | 2020-09-21 10:54 | ECG_ITS ---
Test Reason : SYNCOPE Blood Pressure : / mmHG Vent. Rate : 096 BPM Atrial Rate : 101 BPM P-R Int : 000 ms QRS Dur : 112 ms QT Int : 408 ms P-R-T Axes : 000 -34 116 degrees QTc Int : 515 ms Atrial fibrillation Left axis deviation Minimal voltage criteria for LVH, may be normal variant Prolonged QT Abnormal ECG When compared with ECG of 08-SEP-2020 09:12, No significant change was found Referred By: Narda Elias Electronically Signed By:ROMEO JAMES
[2020-09-21 10:57] VITALS: BP 120/87; BP 123/79; PULSE 100; PULSE 103; RESP 15; TEMP 36.7; O2SAT 96; O2SAT 99; BMI 17.2
[2020-09-21 12:13] VITALS: BP 128/83; PULSE 99
[2020-09-21 12:15] VITALS: BP 142/91; PULSE 83
[2020-09-21 12:16] VITALS: BP 108/72; PULSE 104
[2020-09-21 12:18] VITALS: BP 108/72; PULSE 107; RESP 18; O2SAT 97
[2020-09-21 12:18] LABS: MANUAL DIFF FLAG NO
[2020-09-21 12:22] LABS: Basophils Percent Auto 0.1 % (0-2); Eosinophils Percent Auto 0.4 % (0-4); Hematocrit 30.1 % (37-47); Hemoglobin 9.7 g/dl (12.0-16.0); Imm Gran Abs Auto 0.03 X10*3/uL (0.00-0.03); Imm Gran Pct Auto 0.4 % (0.0-0.4); Lymphocytes Percent Auto 12.7 % (20-40); Mean Corpuscular HGB Conc 32.2 g/dl (31.0-35.0); Mean Corpuscular Volume 93.2 fL (80-98); Mean Platelet Volume 9.7 fL (9.4-12.3); Monocytes Absolute Auto 0.5 X10*3/uL (0.1-1.2); Monocytes Percent Auto 5.8 % (2-11); Neutrophils Absolute Auto 6.2 X10*3/uL (2.0-8.3); Neutrophils Percent Auto 80.6 % (45-73); Platelet Count 260 X10*3/uL (160-400); Red Blood Count 3.23 X10*6/uL (4.20-5.50); Red Cell Distribution Width 15.9 % (11.0-16.0); White Blood Count 7.7 X10*3/uL (4.8-10.8)
[2020-09-21 12:33] LABS: Glucose Urine UA NEG (NEG); Leukocyte Esterase Urine 2+ (NEG); Nitrite Urine NEG (NEG); Specific Gravity - Urine 1.025 (1.005-1.025); UACC Culture Trigger YES; Urine Blood 2+ (NEG); Urine Ketones 5 MG/DL (NEG); Urine Protein 2+ MG/DL (NEG-TRACE)
[2020-09-21 12:39] LABS: Color Urine YELLOW
[2020-09-21] MEDS: 0.9 % Sodium Chloride 500 ML IV ×2 (12:39→14:16)
[2020-09-21 12:40] LABS: Appearance Urine CLOUDY
[2020-09-21 12:43] LABS: Bacteria Urine TRACE /LPF; WBC Urine TNTC /HPF (0-4)
[2020-09-21] MEDS: Lidocaine/Epineph/Tetracaine 3 ML GEL.PF.APP TOPICAL (12:46)
[2020-09-21 12:50] LABS: Lactic Acid 0.8 mmol/L (0.5-2.0)
[2020-09-21 12:56] LABS: Alanine Aminotransferase 9 U/L (0-31); Alkaline Phosphatase 117 U/L (39-117); Anion Gap 14 (12-20); Aspartate Amino Transferase 15 U/L (5-31); Bilirubin Direct 0.2 mg/dL (0.0-0.5); Bilirubin Total 0.3 mg/dL (0.0-1.0); Blood Urea Nitrogen 26 mg/dL (9-16); Calcium 8.2 mg/dL (8.4-10.2); Carbon Dioxide 22 mmol/L (22-29); Chloride 104 mmol/L (96-108); Creatinine Clr Calc Pharmacy 12.1; Estimated Glomerular Filt Rate 21; Glucose Random 105 mg/dL (60-115); Lipase 6 U/L (8-78); Magnesium 2.1 mg/dL (1.6-2.6); Potassium 4.1 mmol/L (3.3-5.1); Sodium 136 mmol/L (135-145); Total Protein 6.2 g/dL (6.5-8.0)
[2020-09-21 13:02] LABS: Troponin-I High Sensitivity 110.4 ng/L (<3.5-17.0)
[2020-09-21 13:07] LABS: COVID-19 Test Negative (Negative)
--- NOTE | 2020-09-21 13:30 | PC.NURSE ---
Pt alert, oriented, no c/o of pain/discomfort. Unable to establish IV x3 attempts. Implanted port accessed. Pt resting quietly. Daughter at bedside.
[2020-09-21] MEDS: cefEPime HCl 1 GM in 0.9 % Sodium Chloride 50 ML IV (14:26)
[2020-09-21 16:18] VITALS: BP 130/73; PULSE 97; RESP 14; TEMP 36.5; O2SAT 98
--- NOTE | 2020-09-21 17:00 | PC.NURSE ---
troponin elevated, daughter made aware by MD Narda. Daughter refuses any further care, requests pt sent back to [facility]. Pt discharged to [facility] via ems. Daughter a bedside at discharge. Report given to ANDRE Tenorio at [facility].
== END 2020-09-21 16:45 | disposition skilled nursing facility (03) ==
PROVIDERS: Emergency Provider Emergency Medicine; PCP Internal Medicine
DX: R55 Syncope and collapse (principal); E86.0 Dehydration; N39.0 Urinary tract infection, site not specified; R77.8 Other specified abnormalities of plasma proteins; Z20.822 Contact with and (suspected) exposure to COVID-19; Z79.899 Other long term (current) drug therapy
CPT/HCPCS: 36415; 71045; 80048; 80076; 81001; 81003; 82550; 83605; 83690; 83735; 84484; 85025; 87040; 87086; 87635; 93005; 96365; 99285; J0692

== ENCOUNTER 2020-10-17 10:42 | Outpatient (REF) | payer MEDICARE, MEDICAID, SELFPAY ==
[2020-10-17 11:04] LABS: Glucose Urine UA NEG (NEG); Leukocyte Esterase Urine 2+ (NEG); Nitrite Urine NEG (NEG); Specific Gravity - Urine 1.025 (1.005-1.025); Urine Blood 3+ (NEG); Urine Ketones NEG (NEG); Urine Protein 3+ MG/DL (NEG-TRACE)
[2020-10-17 11:05] LABS: Appearance Urine CLOUDY; Color Urine YELLOW
[2020-10-17 11:49] LABS: Bacteria Urine 1+ /LPF
== END 2020-10-17 10:43 | disposition home or self-care (01) ==
LOC: HO.HVNA 10:42
PROVIDERS: Visit Provider Internal Medicine
DX: R35.0 Frequency of micturition (principal)
CPT/HCPCS: 81001; 81003

== ENCOUNTER 2021-03-27 15:55 | Outpatient (REF) | payer MEDICARE, MEDICAID, SELFPAY ==
[2021-03-27 16:24] LABS: Appearance Urine CLOUDY; Color Urine YELLOW; Glucose Urine UA NEG (NEG); Leukocyte Esterase Urine 2+ (NEG); Nitrite Urine POS (NEG); PH 6.5 (5.0-8.0); Specific Gravity - Urine 1.025 (1.005-1.025); UACC Culture Trigger YES; Urine Blood 3+ (NEG); Urine Ketones NEG (NEG); Urine Protein 3+ MG/DL (NEG-TRACE)
[2021-03-27 16:32] LABS: Bacteria Urine 2+ /LPF
[2021-03-27 16:33] LABS: Amorphous Sediment Urine 1+ /LPF; Mucus Urine 1+ /LPF; Squamous Epithelial Cell Urine 1+ /LPF
[2021-03-27 16:34] LABS: Triple Phosphate Crystal Urine TRACE /LPF; WBC Urine 30-49 /HPF (0-4)
== END 2021-03-27 15:56 | disposition home or self-care (01) ==
LOC: HO.LAB 15:55
PROVIDERS: PCP Internal Medicine; Visit Provider Internal Medicine
DX: R35.0 Frequency of micturition (principal)
CPT/HCPCS: 81001; 87086

== ENCOUNTER 2021-05-21 13:45 | Inpatient (IN) | payer MEDICARE, MEDICAID, SELFPAY ==
[2021-05-21] VITALS (7 sets, daily range): BP systolic 82–138; BP diastolic 48–90; PULSE 73–151; RESP 14–21; TEMP 36.1–37.1; O2SAT 90–97; BMI 26.0
--- NOTE | ~2021-05-21 | XR_ITS ---
EXAMINATION: XR CHEST CLINICAL INFORMATION: Pulmonary edema COMPARISON: None TECHNIQUE: Frontal view of the chest was obtained. FINDINGS: The lungs are hypoexpanded with increased interstitial markings in both lungs. No focal consolidation or pleural effusion seen. There is a dense mitral valve calcification. The heart size is borderline normal. There is a right central port catheter with its tip in mid to distal SVC. There are old healed fractures left posterior fourth and fifth ribs XR/XR chest 1V IMPRESSION: Hypoexpanded lungs with increased from markings in both lungs without acute consolidation or effusion. Heart size is borderline normal. There is a right central venous port in good position. It is unchanged.
--- NOTE | 2021-05-21 13:48 | ECG_ITS ---
Test Reason : RAPID HEART RATE Blood Pressure : / mmHG Vent. Rate : 127 BPM Atrial Rate : 000 BPM P-R Int : 000 ms QRS Dur : 078 ms QT Int : 272 ms P-R-T Axes : 000 -26 149 degrees QTc Int : 395 ms Atrial fluuter with rapid ventricular response Anterior infarct , age undetermined ST & T wave abnormality, consider lateral ischemia Abnormal ECG When compared with ECG of 21-SEP-2020 11:15, QRS duration has decreased T wave inversion more evident in Lateral leads Referred By: Generic ED Physician Electronically Signed By:LAURY CHRISTIANSON MD
--- NOTE | 2021-05-21 14:26 | ED.GENADULT ---
HPI - General Adult General Chief complaint: Arrhythmia/Palpitations Stated complaint: rapid heart rate Time Seen by Provider: 05/21/21 14:14 Source: patient and family Mode of arrival: ambulatory Limitations: no limitations History of Present Illness HPI narrative: patient is brought to the emergency room by her daughter. The patient has been complaining of bilateral leg swelling for couple of weeks. Today, patient had an appointment with her PCP, it was noted that patient's heart rate was between 130 and 140, she was sent to the emergency room for further evaluation. The daughter states that last year patient was in hospice care due to heart failure. In October of 2020, patient actually started doing better and the hospice care/palliative care was discontinued. Since then, patient has not been on any medications at all. Patient known to have atrial fibrillation and hypothyroidism. patient states that her legs are swollen but other than that she is asymptomatic, states she feels fine, denies chest pain, no shortness of breath Related Data Home Medications Medication Instructions Recorded Confirmed neomycin-bacitracn Zn-polymyx 3.5 1 appl TOPICAL DAILY 05/21/21 05/21/21 mg-400 unit-5,000 unit/gram top oint (Triple Antibiotic) trazodone 100 mg tablet 100 mg PO BEDTIME 05/21/21 05/21/21 trazodone 100 mg tablet 100 mg PO DAILY PRN 05/21/21 05/21/21 Previous Rx's Medication Instructions Recorded wheelchair #1 ea 08/24/20 pull ups medium #180 ea 01/03/21 Allergies Allergy/AdvReac Type Severity Reaction Status Date / Time amlodipine [From [facility]] Allergy Intermediate HIVES Verified 05/21/21 13:06 aspirin [ASA] Allergy Intermediate HIVES Verified 05/21/21 13:06 robert [ROBERT] Allergy Intermediate HIVES Verified 05/21/21 13:06 hydrochlorothiazide Allergy Unknown Hives Verified 05/21/21 13:06 gabapentin AdvReac Unknown dizziness Verified 05/21/21 13:06 lisinopril AdvReac Unknown Cough Verified 05/21/21 13:06 Review of Systems Review of Systems: Constitutional : No Weight loss, No Fever, No Chills, No Night Sweats, No Fatigue, No Malaise ENT/Mouth : No Hearing loss, No Ear Pain, No Nasal Congestion, No Sinus Pain, No Hoarseness, No sore throat, No Rhinorrhea, No Swallowing Difficulty Eyes: No Eye Pain, No Swelling, No Redness, No Foreign Body, No Discharge, No Vision Changes Cardiovascular : No Chest Pain, No SOB, No Dyspnea on Exertion, No Orthopnea, complaining of worsening lower extremity edema, occasional palpitations Respiratory : No Cough, No Sputum, No Wheezing, No Smoke Exposure, No Dyspnea Gastrointestinal : No Nausea, No Vomiting, No Diarrhea, No Constipation, No abdominal Pain, No Hematochezia, No Melena Genitourinary : no irregular bleeding, No Dysuria, No Urinary Frequency, No Hematuria, No Urinary Incontinence, No Urgency, No Flank Pain, No Urinary Flow Changes, No Hesitancy Musculoskeletal : No joint pain, No Myalgias, No Joint Swelling Skin : No Skin Lesions, No rash Neuro : No Weakness, No Numbness, No Paresthesias, No Loss of Consciousness, No Dizziness, No Headache Psych : No Anxiety/Panic, No Depression, No SI/HI/AH/VH, No Social Issues, Heme/Lymph: No Bruising, No Bleeding,No Lymphadenopathy Endocrine : No Polyuria, No Polydipsia, No Temperature Intolerance [facility] Past Medical History Medical History Anxiety Ramos's palsy Cervical cancer Cognitive impairment Congestive heart failure DVT (deep venous thrombosis) GERD (gastroesophageal reflux disease) Hydronephrosis Hypercholesterolemia Hypertension Lumbar degenerative disc disease Obstructive uropathy Osteoarthritis Paroxysmal atrial fibrillation Peripheral vascular disease Vitamin D deficiency Surgical History H/O elbow surgery History of bladder surgery History of cholecystectomy Family History Family History Father Hypertension Stroke CVD (cardiovascular disease) Mother Hypoglycemia Social History Social History Household Members: Family Household Members Other:: Daughter lives on second floor Housing: Apartment Do you presently have visiting nurse or other home services: Yes Alcohol intake: never Patient Tobacco Use Status: Former Tobacco user Tobacco use type: Cigarette e-Cigarette/Vaping Use: Never Used Second Hand Smoke Exposure: No Use of substances other than those prescribed or required for medical reasons: No Advance Directives: Yes Advance Directives on File: Yes Advance Directives Date on File: 09/08/20 service: No Current occupational status: disabled Physical Exam Vital Signs: Vital Signs: Last Vital Signs Temp 98.5 F 05/21/21 14:23 Pulse 116 H 05/21/21 16:00 Resp 19 05/21/21 16:00 BP 114/87 05/21/21 16:00 Pulse Ox 90 L 05/21/21 16:00 BMI result Body Mass Index 26.0 Const: Other: Appearance: Alert. Oriented X1 at baseline. No acute distress. Eyes: Pupils equal, round and reactive to light. ENT: Pharynx normal. Neck: Normal inspection. Neck supple. No lymph nodes noted. No crepitus CVS: irregularly irregular heart rate, a rate approximately 150 Pulses normal. Normal S1 and S2 Respiratory: No respiratory distress. bibasilar crackles, no wheezing, good air movement Abdomen: Soft and nontender. No rigidity. No distention. Skin: Skin warm and dry. Normal skin color. Normal skin turgor. 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 Blood pressure remains in the 110s to 120 systolic. Patient remains asymptomatic. Patient is now on Cardizem drip. Patient and daughter agree that the patient is to be admitted. Patient will be admitted for CHF, AFib with RVR and Hypothyroidism. The daughter is the healthcare proxy, agrees that when patient gets discharged from the hospital, she will continue the prescribed medications Medical Decision Making Lab Data Result diagrams: 05/21/21 15:02 05/21/21 15:02 Labs: Lab Results 05/21/21 05/21/21 05/21/21 Range/Units 15:02 15:02 15:02 WBC 4.9 (4.8-10.8) X10*3/uL RBC 4.01 L (4.20-5.50) X10*6/uL Hgb 11.0 L (12.0-16.0) g/dl Hct 34.8 L (37.0-47.0) % MCV 86.8 (80.0-98.0) fL MCH 27.4 (27.0-33.0) pg MCHC 31.6 (31.0-35.0) g/dl RDW 19.1 H (11.0-16.0) % Plt Count 195 (160-400) X10*3/uL MPV 9.8 (9.4-12.3) fL Immature Gran % (Auto) 0.2 (0.0-0.4) % Neut % (Auto) 70.8 (45-73) % Lymph % (Auto) 20.7 (20-40) % [place] % (Auto) 6.7 (2-11) % Eos % (Auto) 1.4 (0-4) % Baso % (Auto) 0.2 (0-2) % Lymph # (Auto) 1.0 L (1.2-4.9) X10*3/uL [place] # (Auto) 0.3 (0.1-1.2) X10*3/uL Eos # (Auto) 0.1 (0.0-0.4) X10*3/uL Baso # (Auto) 0.0 (0.0-0.2) X10*3/uL Abs Immat Gran (auto) 0.01 (0.00-0.03) X10*3/uL Absolute Neuts (auto) 3.5 (2.0-8.3) x10*3/uL Absolute Nucleated RBC 0.000 (0.0-0.012) X10*3/uL Nucleated RBC % (auto) 0.0 (0.0-0.2) /100WBC PT 12.3 (9.9-13.0) SEC INR 1.1 (0.9-1.1) Sodium 138 (135-145) mmol/L Potassium 5.0 D (3.3-5.1) mmol/L Chloride 108 (96-108) mmol/L Carbon Dioxide 26 (22-29) mmol/L Anion Gap 9 L (12-20) BUN 23 H (9-16) mg/dL Creatinine 1.54 H (0.5-1.4) mg/dL Estim Creat Clear Calc 20.7 Estimated GFR 32 Random Glucose 85 (60-115) mg/dL Calcium 8.1 L (8.4-10.2) mg/dL Total Bilirubin 0.4 (0.0-1.0) mg/dL Direct Bilirubin 0.2 (0.0-0.5) mg/dL AST 21 (5-31) U/L ALT 13 (0-31) U/L Alkaline Phosphatase 83 D (39-117) U/L Troponin I High Sens (<3.5-17.0) ng/L B-Natriuretic Peptide (<100) pg/mL Total Protein 6.1 L (6.5-8.0) g/dL Albumin 2.8 L (3.5-5.0) g/dL TSH 49.31 H (0.32-4.0) uIU/mL Free T4 0.50 L (0.71-1.85) ng/dL COVID-19 ([place]) (Negative) COVID-19 Clin Com 05/21/21 05/21/21 Range/Units 15:02 15:04 WBC (4.8-10.8) X10*3/uL RBC (4.20-5.50) X10*6/uL Hgb (12.0-16.0) g/dl Hct (37.0-47.0) % MCV (80.0-98.0) fL MCH (27.0-33.0) pg MCHC (31.0-35.0) g/dl RDW (11.0-16.0) % Plt Count (160-400) X10*3/uL MPV (9.4-12.3) fL Immature Gran % (Auto) (0.0-0.4) % Neut % (Auto) (45-73) % Lymph % (Auto) (20-40) % [place] % (Auto) (2-11) % Eos % (Auto) (0-4) % Baso % (Auto) (0-2) % Lymph # (Auto) (1.2-4.9) X10*3/uL [place] # (Auto) (0.1-1.2) X10*3/uL Eos # (Auto) (0.0-0.4) X10*3/uL Baso # (Auto) (0.0-0.2) X10*3/uL Abs Immat Gran (auto) (0.00-0.03) X10*3/uL Absolute Neuts (auto) (2.0-8.3) x10*3/uL Absolute Nucleated RBC (0.0-0.012) X10*3/uL Nucleated RBC % (auto) (0.0-0.2) /100WBC PT (9.9-13.0) SEC INR (0.9-1.1) Sodium (135-145) mmol/L Potassium (3.3-5.1) mmol/L Chloride (96-108) mmol/L Carbon Dioxide (22-29) mmol/L Anion Gap (12-20) BUN (9-16) mg/dL Creatinine (0.5-1.4) mg/dL Estim Creat Clear Calc Estimated GFR Random Glucose (60-115) mg/dL Calcium (8.4-10.2) mg/dL Total Bilirubin (0.0-1.0) mg/dL Direct Bilirubin (0.0-0.5) mg/dL AST (5-31) U/L ALT (0-31) U/L Alkaline Phosphatase (39-117) U/L Troponin I High Sens 24.6 H (<3.5-17.0) ng/L B-Natriuretic Peptide 674 H (<100) pg/mL Total Protein (6.5-8.0) g/dL Albumin (3.5-5.0) g/dL TSH (0.32-4.0) uIU/mL Free T4 (0.71-1.85) ng/dL COVID-19 ([place]) Negative (Negative) COVID-19 Clin Com See Note Critical Care Time Critical Care Time Critical Care Time: Yes Total Critical Care Time: 60 Attestation: 60 minutes were spent in direct patient care, stabilization. Discharge Plan Discharge Clinical Impression: Atrial fibrillation with RVR, CHF (congestive heart failure), Hypothyroidism Patient Disposition: Admitted As Inpatient Prescriptions: No Action (DME) wheelchair See Rx Instructions .Route .MEDSUPPLY Qty: 1 RF: 0 (DME) pull ups medium See Rx Instructions .Route .MEDSUPPLY Qty: 180 RF: 11 Triple Antibiotic 3.5mg-400 unit- 5,000 unit/gram Ointment 1 appl TOPICAL DAILY RF: 0 trazodone 100 mg Tablet 100 mg PO DAILY PRN (Reason: Anxiety) RF: 0 trazodone 100 mg tablet 100 mg PO BEDTIME RF: 0
--- NOTE | 2021-05-21 14:34 | PHA.MEDREC ---
Pharmacy Consult ? Medication Reconciliation Pharmacy has completed the medication reconciliation. Patient was on hospice. Only use trazodone at night and lately was using a triple ABX cream for a cut on her arm. Minda Gaxiola, PharmD
[2021-05-21] MEDS: dilTIAZem HCL 50 MG/10 ML VIAL 10 MG IVPUSH ×2 (15:08→16:17)
--- NOTE | 2021-05-21 15:09 | PC.NURSE ---
cardiac monitored applied, sinus tach, no pain reported, port accessed, pt medicated with diltiazem, labs drawn
[2021-05-21 15:12] LABS: MANUAL DIFF FLAG NO
[2021-05-21 15:14] LABS: Basophils Percent Auto 0.2 % (0-2); Eosinophils Absolute Auto 0.1 X10*3/uL (0.0-0.4); Eosinophils Percent Auto 1.4 % (0-4); Hematocrit 34.8 % (37.0-47.0); Imm Gran Abs Auto 0.01 X10*3/uL (0.00-0.03); Imm Gran Pct Auto 0.2 % (0.0-0.4); Lymphocytes Percent Auto 20.7 % (20-40); Mean Corpuscular HGB Conc 31.6 g/dl (31.0-35.0); Mean Corpuscular Hemoglobin 27.4 pg (27.0-33.0); Mean Corpuscular Volume 86.8 fL (80.0-98.0); Mean Platelet Volume 9.8 fL (9.4-12.3); Monocytes Absolute Auto 0.3 X10*3/uL (0.1-1.2); Monocytes Percent Auto 6.7 % (2-11); Neutrophils Absolute Auto 3.5 x10*3/uL (2.0-8.3); Neutrophils Percent Auto 70.8 % (45-73); Platelet Count 195 X10*3/uL (160-400); Red Blood Count 4.01 X10*6/uL (4.20-5.50); Red Cell Distribution Width 19.1 % (11.0-16.0); White Blood Count 4.9 X10*3/uL (4.8-10.8)
[2021-05-21 15:27] LABS: INTERNATIONAL NORM RATIO 1.1 (0.9-1.1); Prothrombin Time 12.3 SEC (9.9-13.0)
[2021-05-21 15:32] LABS: COVID-19 Test Negative (Negative)
[2021-05-21 15:33] LABS: B Type Natriuretic Peptide 674 pg/mL (<100); Troponin-I High Sensitivity 24.6 ng/L (<3.5-17.0)
[2021-05-21 15:34] LABS: Alanine Aminotransferase 13 U/L (0-31); Albumin Level 2.8 g/dL (3.5-5.0); Alkaline Phosphatase 83 U/L (39-117); Anion Gap 9 (12-20); Aspartate Amino Transferase 21 U/L (5-31); Bilirubin Direct 0.2 mg/dL (0.0-0.5); Bilirubin Total 0.4 mg/dL (0.0-1.0); Blood Urea Nitrogen 23 mg/dL (9-16); Calcium 8.1 mg/dL (8.4-10.2); Carbon Dioxide 26 mmol/L (22-29); Chloride 108 mmol/L (96-108); Creatinine Clr Calc Pharmacy 20.7; Estimated Glomerular Filt Rate 32; Glucose Random 85 mg/dL (60-115); Sodium 138 mmol/L (135-145); Total Protein 6.1 g/dL (6.5-8.0)
[2021-05-21 15:49] LABS: TSH reflex Free T4 49.31 uIU/mL (0.32-4.0)
--- NOTE | 2021-05-21 16:19 | PC.NURSE ---
patient a&o, vitals stable, pt bus monitor intact- afib on monitor 100-120s, pt no c/o pain or discomfort, ivp diltiazem given per order, call eng within reach, will continue to monitor.
--- NOTE | 2021-05-21 17:28 | P.HPHOSP_ITS ---
History of Present Illness Date of Service: 05/21/21 <Jennifer Morris NP - Last Filed: 05/22/21 15:33> Chief Complaint: SOB <Jennifer Morris NP - Last Filed: 05/22/21 15:33> 86 year old women presenting with increased sob and leg swelling. According to her daughter she had noted that the patient has had more swelling to her lower extremities. he patient has dementia and stated that she feels fine. She was graduated from hospice about 3 months ago and has been off all her medications except trazodone since 08/2020. She went to see her PCP and was noted to have elevated heart rate and was told to come to the ED. She was started on diltazem drip for afib rvr/flutter. Her BNP was in the high 600's. She was given lasix. Other than her heart rate being fast her other vital signs are stable. She was vaccinated x 2 with Moderna. She will be admitted for further management and treatment of Afib RVR. <Jennifer Morris NP - Last Filed: 05/22/21 15:33> Review of Systems Verdana 4l Review of Systems: Verdana 4d Verdana 4d Denies any recent fever chills or decrease in appetite respiratory denies any shortness of breath cardiovascular denies chest pain gastrointestinal denies any dysphagia abdominal pain nausea vomiting or diarrhea genitourinary denies any dysuria frequency or hematuria musculoskeletal denies any joint pain or swelling neuropsych denies any weakness or seizures all other systems reviewed are negative <Jennifer Morris NP - Last Filed: 05/22/21 15:33> [facility] Medical History: Medical History Anxiety Ramos's palsy Cervical cancer Cognitive impairment Congestive heart failure DVT (deep venous thrombosis) GERD (gastroesophageal reflux disease) Hydronephrosis Hypercholesterolemia Hypertension Lumbar degenerative disc disease Obstructive uropathy Osteoarthritis Paroxysmal atrial fibrillation Peripheral vascular disease Vitamin D deficiency <Jennifer Morris NP - Last Filed: 05/22/21 15:33> Family History: Family History Father Hypertension Stroke CVD (cardiovascular disease) Mother Hypoglycemia <Jennifer Morris NP - Last Filed: 05/22/21 15:33> Surgical History: Surgical History H/O elbow surgery History of bladder surgery History of cholecystectomy <Jennifer Morris NP - Last Filed: 05/22/21 15:33> Social History: Social History Household Members: Unknown / Unable to assess Household Members Other:: Daughter lives on second floor Housing: House Do you presently have visiting nurse or other home services: No Unable to assess alcohol history related to: Unknown Alcohol intake: never Patient Tobacco Use Status: Former Tobacco user Tobacco use type: Cigarette e-Cigarette/Vaping Use: Never Used Second Hand Smoke Exposure: No Advance Directives Date on File: 09/08/20 service: No Current occupational status: disabled <Jennifer Morris NP - Last Filed: 05/22/21 15:33> Meds Allergies/Adverse reactions: Allergies Allergy/AdvReac Type Severity Reaction Status Date / Time amlodipine [From Allergy Intermediate HIVES Verified 05/21/21 13:06 NORVASC] aspirin [ASA] Allergy Intermediate HIVES Verified 05/21/21 13:06 robert [ROBERT] Allergy Intermediate HIVES Verified 05/21/21 13:06 hydrochlorothiazide Allergy Unknown Hives Verified 05/21/21 13:06 gabapentin AdvReac Unknown dizziness Verified 05/21/21 13:06 lisinopril AdvReac Unknown Cough Verified 05/21/21 13:06 <Jennifer Morris NP - Last Filed: 05/22/21 15:33> Active Medications: Current Medications Acetaminophen (Acetaminophen 325 Mg Tablet) 650 mg PO Q6H PRN PRN Reason: Pain, Mild (Pain Scale 1-3) Heparin Sodium (Porcine) (Heparin Sodium,Porcine 5,000 Unit/Ml Vial) 5,000 unit SUBCUT Q12H ROBBIE Diltiazem HCl 125 mg/ Sodium (Chloride) 125 mls @ 0 mls/hr IVCONT .Q0M ROBBIE; Protocol Ondansetron HCl (Ondansetron Hcl 4 Mg/2 Ml Vial) 4 mg IVPUSH Q8H PRN PRN Reason: Nausea and Vomiting Pharmacy Consult (Consult Rx Perform Med Rec) 1 each MISCELLANE ONCE PRN PRN Reason: Consult order Sodium Chloride (0.9 % Sodium Chloride Flush 3 Ml Syringe) 3 ml IVFLUSH QSHIFT ROBBIE <Jennifer Morris NP - Last Filed: 05/22/21 15:33> Home medications: Home Medications Medication Instructions Recorded Confirmed Last Taken Type trazodone 100 mg 100 mg PO 05/21/21 05/21/21 05/20/21 History tablet BEDTIME <eJnnifer Morris NP - Last Filed: 05/22/21 15:33> Physical Exam Verdana 4l Vital Signs and Narrative: Verdana 4d Verdana 4d Vital Signs: Verdana 4d Verdana 4Bd Last Vital Signs Verdana 4d Electrical Mechanic New 4d Electrical Mechanic New 4d Temp 98.5 F 05/21/21 14:23 Electrical Mechanic New 4d Pulse 116 H 05/21/21 16:00 Electrical Mechanic New 4d Resp 19 05/21/21 16:00 BP 114/87 05/21/21 16:00 Pulse Ox 90 L 05/21/21 16:00 BMI result Body Mass Index 26.0 <Jennifer Morris NP - Last Filed: 05/22/21 15:33> Appearing in no acute distress head is normocephalic atraumatic eyes pupils are PERRLA sclera is anicteric mouth throat mucous membranes are intact and moist neck is supple no lymphadenopathy, no JVD noted lung sounds are clear to auscultation heart IRIR +2 LE pitting edema positive bowel sounds, abdomen is soft, nontender neuro patient is alert x3, no focal deficits <Jennifer Morris NP - Last Fi led: 05/22/21 15:33> Results Labs CBC and Chem 7: : 05/23/21 09:27 05/26/21 06:33 <Jennifer Morris NP - Last Filed: 05/22/21 15:33> Labs: Laboratory Results - last 24 hr 05/21/21 05/21/21 05/21/21 15:02 15:02 15:02 MCV 86.8 MCH 27.4 MCHC 31.6 RDW 19.1 H Plt Count 195 MPV 9.8 Immature Gran % (Auto) 0.2 Neut % (Auto) 70.8 Lymph % (Auto) 20.7 Early % (Auto) 6.7 Eos % (Auto) 1.4 Baso % (Auto) 0.2 Lymph # (Auto) 1.0 L Early # (Auto) 0.3 Eos # (Auto) 0.1 Baso # (Auto) 0.0 Abs Immat Gran (auto) 0.01 Absolute Neuts (auto) 3.5 Absolute Nucleated RBC 0.000 Nucleated RBC % (auto) 0.0 PT 12.3 INR 1.1 Anion Gap 9 L Estim Creat Clear Calc 20.7 Estimated GFR 32 Random Glucose 85 Calcium 8.1 L Total Bilirubin 0.4 Direct Bilirubin 0.2 AST 21 ALT 13 Alkaline Phosphatase 83 D Troponin I High Sens B-Natriuretic Peptide Total Protein 6.1 L Albumin 2.8 L TSH 49.31 H Free T4 0.50 L COVID-19 ([place]) COVID-19 Clin Com 05/21/21 05/21/21 15:02 15:04 MCV MCH MCHC RDW Plt Count MPV Immature Gran % (Auto) Neut % (Auto) Lymph % (Auto) Early % (Auto) Eos % (Auto) Baso % (Auto) Lymph # (Auto) Early # (Auto) Eos # (Auto) Baso # (Auto) Abs Immat Gran (auto) Absolute Neuts (auto) Absolute Nucleated RBC Nucleated RBC % (auto) PT INR Anion Gap Estim Creat Clear Calc Estimated GFR Random Glucose Calcium Total Bilirubin Direct Bilirubin AST ALT Alkaline Phosphatase Troponin I High Sens 24.6 H B-Natriuretic Peptide 674 H Total Protein Albumin TSH Free T4 COVID-19 ([place]) Negative COVID-19 Clin Com See Note <Jennifer Morris NP - Last Filed: 05/22/21 15:33> Imaging Radiologist's Impressions: Impressions Chest X-Ray 05/21/21 14:42 IMPRESSION: Hypoexpanded lungs with increased from markings in both lungs without acute consolidation or effusion. Heart size is borderline normal. There is a right central venous port in good position. It is unchanged. <Jennifer Morris NP - Last Filed: 05/22/21 15:33> Assessment and Plan (1) Acute CHF: Status: Acute <Jennifer Morris NP - Last Filed: 05/22/21 15:33> (2) Atrial fibrillation with RVR: Status: Acute <Jennifer Morris NP - Last Filed: 05/22/21 15:33> Plan 86 year old women admitted with Afib rvr, CHF. raduated hospice 3 months ago and has not been on medications since 08/2020. Afib rvr acute on chronic afib On diltiazem drip will add cardizem po cardiology consult telemetry CHF. pitting edema noted start IV lasix 20mg BID daily weight intake and output CKD appears to be close to baseline Hypothyroidism Not on medications will start levothyroxine 25mcg daily ( previous dose 50mcg) DVT prophylaxis with heparin Attending Dr. Nguyen DNR <Jennifer Morris NP - Last Filed: 05/22/21 15:33> Quality Stroke Does the patient have a stroke diagnosis?: No <Jennifer Morris NP - Last Filed: 05/22/21 15:33> VTE Prior VTE?: No <Jennifer Morris NP - Last Filed: 05/22/21 15:33> VTE Risk Level:: Medical - moderate - high <Jennifer Morris NP - Last Filed: 05/22/21 15:33> VTE Device Contraindication: Treatment Not Indicated <Jennifer Morris NP - Last Filed: 05/22/21 15:33> VTE Drug Contraindication: N/A - Med Ordered <Jennifer Morris NP - Last Filed: 05/22/21 15:33>
[2021-05-21] MEDS: Heparin Sodium,Porcine 5,000 UNIT/ML VIAL 5000 UNIT SUBCUT (17:33)
[2021-05-21] MEDS: dilTIAZem HCL 125 MG in 0.9 % Sodium Chloride 100 ML 10 MG IVCONT (17:34)
--- NOTE | 2021-05-21 17:39 | PC.NURSE ---
cardizem drip started per order
[2021-05-21] MEDS: traZODone HCL 100 MG TABLET PO (18:27)
--- NOTE | 2021-05-21 20:28 | PC.NURSE ---
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
--- NOTE | 2021-05-21 20:48 | PC.NURSE ---
nobled maurice Morris the patient is on cardizem drip with a hr that has been ranging 70s-120 but has been under 90 more than above for the last 1/2 hr, was questioning if we should stop the drip. hospitalist directed us via tiger text to continue the drip until the patient is consistently in the 70s and to give her the po cardizem now. will continue to monitor.
[2021-05-21] MEDS: dilTIAZem HCL 30 MG TABLET PO (21:00)
--- NOTE | 2021-05-21 21:54 | PC.NURSE ---
per instructions by hospitalist patients cardizem drip was put on pause/stopped when the patients HR was consistently in the 70s, pt was medicated with po cardizem.
[2021-05-22] VITALS: BP 105/51; PULSE 89; RESP 22; TEMP 36.2; O2SAT 98
[2021-05-22] MEDS: Heparin Sodium,Porcine 5,000 UNIT/ML VIAL 5000 UNIT SUBCUT ×2 (06:24→17:09)
[2021-05-22 07:10] LABS: MANUAL DIFF FLAG NO
[2021-05-22 07:12] LABS: Basophils Percent Auto 0.3 % (0-2); Eosinophils Absolute Auto 0.1 X10*3/uL (0.0-0.4); Eosinophils Percent Auto 1.3 % (0-4); Hematocrit 33.1 % (37.0-47.0); Hemoglobin 10.6 g/dl (12.0-16.0); Imm Gran Abs Auto 0.02 X10*3/uL (0.00-0.03); Imm Gran Pct Auto 0.5 % (0.0-0.4); Lymphocytes Percent Auto 25.5 % (20-40); Mean Corpuscular Hemoglobin 27.7 pg (27.0-33.0); Mean Corpuscular Volume 86.4 fL (80.0-98.0); Mean Platelet Volume 10.1 fL (9.4-12.3); Monocytes Absolute Auto 0.3 X10*3/uL (0.1-1.2); Monocytes Percent Auto 7.3 % (2-11); Neutrophils Absolute Auto 2.4 x10*3/uL (2.0-8.3); Neutrophils Percent Auto 65.1 % (45-73); Platelet Count 190 X10*3/uL (160-400); Red Blood Count 3.83 X10*6/uL (4.20-5.50); Red Cell Distribution Width 19.2 % (11.0-16.0); White Blood Count 3.7 X10*3/uL (4.8-10.8)
[2021-05-22] MEDS: Levothyroxine Sodium 25 MCG TABLET PO (07:19)
[2021-05-22 07:38] LABS: Anion Gap 10 (12-20); Blood Urea Nitrogen 24 mg/dL (9-16); Calcium 8.1 mg/dL (8.4-10.2); Carbon Dioxide 25 mmol/L (22-29); Chloride 109 mmol/L (96-108); Creatinine Clr Calc Pharmacy 20.1; Estimated Glomerular Filt Rate 31; Glucose Random 89 mg/dL (60-115); Sodium 139 mmol/L (135-145)
[2021-05-22 07:58] VITALS: BP 105/44; PULSE 98; RESP 20; TEMP 36.5; O2SAT 90
--- NOTE | 2021-05-22 07:58 | PC.NURSE ---
Pt received from night warehouse manager: Pt AOx2-3 with intermittent confusion. Pt able to discuss with syriac. Pt has port, but as per night warehouse manager, pt pulled out port but was not reaccessed last night. Old accessed port laid out on table. Heart sounds irregular and controlled AFib noted on monitor and lungs diminished. Pt abd soft and non-tender.
[2021-05-22] MEDS: dilTIAZem HCL 30 MG TABLET PO (09:46)
[2021-05-22] MEDS: Furosemide 20 MG/2 ML VIAL IVPUSH ×2 (09:55→18:35)
--- NOTE | 2021-05-22 12:09 | PM.CNCAR ---
History of Present Illness History of Present Illness Date of Service: 05/22/21 Requesting physician: Jennifer Morris Consult reason: atrial fibrillation and congestive heart failure Chief complaint: afib rvr, chf Narrative: I was requested to see Amrik in cardiology consultation today for patient presenting with congestive heart failure as well as atrial fibrillation with rapid ventricular response. She is 86-year-old woman with prior history of heart failure with severe cardiomyopathy in setting of atrial fibrillation with rapid ventricular response subsequently undergoing cardioversion and maintain oral anticoagulation with normalization of LV ejection fraction in late 2019. She was followed once in June and after that because of recurrent heart failure was put on hospice. However 3 months in hospice her medical condition had improved and she was discharged from hospice without starting any of her usual cardiac medications. She was sent to the emergency room by Dr. Murrieta after daughter noticing that patient has been getting progressively increased shortness of breath and leg swelling over the last week. She had not seen her mother for 2 weeks and then when she her last 2 days she noted leg edema and subsequently had an appointment with Dr. Barrow yesterday was noted to be in rapid heart rate and was referred to the emergency room. In the emergency room she was noted to be in AFib with rapid ventricular response with findings suggestive congestive heart failure with predominant right heart failure findings at elevated BNP. She was given Lasix. Today she says she is feeling better. Her heart rate is somewhat better controlled. Blood pressure is on the softer side. She is a poor historian. Review of Systems Review of Systems: Yes Unobtainable due to mental status PMFSH Past Medical History Medical History Anxiety Ramos's palsy Cervical cancer Cognitive impairment Congestive heart failure DVT (deep venous thrombosis) GERD (gastroesophageal reflux disease) Hydronephrosis Hypercholesterolemia Hypertension Lumbar degenerative disc disease Obstructive uropathy Osteoarthritis Paroxysmal atrial fibrillation Peripheral vascular disease Vitamin D deficiency Family History Family History Father Hypertension Stroke CVD (cardiovascular disease) Mother Hypoglycemia Surgical History Surgical History H/O elbow surgery History of bladder surgery History of cholecystectomy Social History Social History Household Members: Family Household Members Other:: Daughter lives on second floor Housing: Apartment Do you presently have visiting nurse or other home services: Yes Alcohol intake: never Patient Tobacco Use Status: Former Tobacco user Tobacco use type: Cigarette e-Cigarette/Vaping Use: Never Used Second Hand Smoke Exposure: No Use of substances other than those prescribed or required for medical reasons: No Advance Directives: Yes Advance Directives on File: Yes Advance Directives Date on File: 09/08/20 service: No Current occupational status: disabled Meds Allergies Allergy/AdvReac Type Severity Reaction Status Date / Time amlodipine [From NORVASC] Allergy Intermediate HIVES Verified 05/21/21 13:06 aspirin [ASA] Allergy Intermediate HIVES Verified 05/21/21 13:06 robert [ROBERT] Allergy Intermediate HIVES Verified 05/21/21 13:06 hydrochlorothiazide Allergy Unknown Hives Verified 05/21/21 13:06 gabapentin AdvReac Unknown dizziness Verified 05/21/21 13:06 lisinopril AdvReac Unknown Cough Verified 05/21/21 13:06 Active Medications: Current Medications Acetaminophen (Acetaminophen 325 Mg Tablet) 650 mg PO Q6H PRN PRN Reason: Pain, Mild (Pain Scale 1-3) Diltiazem HCl (Diltiazem Hcl 30 Mg Tablet) 30 mg PO QID [facility]; Protocol Last Admin: 05/22/21 09:46 Dose: 30 mg Documented by: Furosemide (Furosemide 20 Mg/2 Ml Vial) 20 mg IVPUSH BID@0900,1800 [facility]; Protocol Last Admin: 05/22/21 09:55 Dose: 20 mg Documented by: Heparin Sodium (Porcine) (Heparin Sodium,Porcine 5,000 Unit/Ml Vial) 5,000 unit SUBCUT Q12H [facility] Last Admin: 05/22/21 06:24 Dose: 5,000 unit Documented by: Diltiazem HCl 125 mg/ Sodium (Chloride) 125 mls @ 0 mls/hr IVCONT .Q0M [facility]; Protocol Last Titration: 05/21/21 21:54 Dose: 0 mg/hr, 0 mls/hr Documented by: Levothyroxine Sodium (Levothyroxine Sodium 25 Mcg Tablet) 25 mcg PO DAILY@0600 [facility] Last Admin: 05/22/21 07:19 Dose: 25 mcg Documented by: Ondansetron HCl (Ondansetron Hcl 4 Mg/2 Ml Vial) 4 mg IVPUSH Q8H PRN PRN Reason: Nausea and Vomiting Pharmacy Consult (Consult Rx Perform Med Rec) 1 each MISCELLANE ONCE PRN PRN Reason: Consult order Sodium Chloride (0.9 % Sodium Chloride Flush 3 Ml Syringe) 3 ml IVFLUSH QSHIFT [facility] Last Admin: 05/22/21 07:19 Dose: Not Given Documented by: Trazodone HCl (Trazodone Hcl 100 Mg Tablet) 100 mg PO DAILY PRN PRN Reason: Anxiety Last Admin: 05/21/21 18:27 Dose: 100 mg Documented by: Trazodone HCl (Trazodone Hcl 100 Mg Tablet) 100 mg PO BEDTIME [facility] Last Admin: 05/21/21 21:59 Dose: Not Given Documented by: Home Medications Medication Instructions Recorded Confirmed Last Taken Type trazodone 100 mg tablet 100 mg PO BEDTIME 05/21/21 05/21/21 05/20/21 History Physical Exam Vital Signs: Vital Signs: Last Vital Signs Temp 97.7 F 05/22/21 07:58 Pulse 98 05/22/21 07:58 Resp 20 05/22/21 07:58 BP 105/44 L 05/22/21 07:58 Pulse Ox 90 L 05/22/21 07:58 BMI result Body Mass Index 26.0 Const: General: cooperative, comfortable, no acute distress, alert and awake Nutritional Appearance: average body habitus Orientation/consciousness: patient oriented x3 HENMT: Head: Yes normocephalic and Yes atraumatic Neck: Neck: Yes trachea midline, Yes supple and Yes JVD (In upright sitting position) Resp: Effort & Inspection: normal respiratory effort Auscultation: crackles (Coarse at the right base) and no wheezes Cardio: Jugular venous distension: JVD Rate: tachycardic Rhythm: abnormal rhythm irregularly irregular Heart sounds: S1 normal heart sound present, S2 normal heart sound present, no click, no gallops and no murmurs GI: Auscultation: normal bowel sounds Neuro: General: patient oriented x3 and no focal motor deficits Extrem: General: No clubbing, No cyanosis and Yes edema Objective Labs and Meds Result diagrams: 05/22/21 06:48 05/22/21 06:48 Lab results: Laboratory Results - last 24 hr 0105/21/21 05/21/21 15:02 15:02 15:02 WBC 4.9 RBC 4.01 L Hgb 11.0 L Hct 34.8 L MCV 86.8 MCH 27.4 MCHC 31.6 RDW 19.1 H Plt Count 195 MPV 9.8 Immature Gran % (Auto) 0.2 Neut % (Auto) 70.8 Lymph % (Auto) 20.7 [place] % (Auto) 6.7 Eos % (Auto) 1.4 Baso % (Auto) 0.2 Lymph # (Auto) 1.0 L [place] # (Auto) 0.3 Eos # (Auto) 0.1 Baso # (Auto) 0.0 Abs Immat Gran (auto) 0.01 Absolute Neuts (auto) 3.5 Absolute Nucleated RBC 0.000 Nucleated RBC % (auto) 0.0 PT 12.3 INR 1.1 Sodium 138 Potassium 5.0 D Chloride 108 Carbon Dioxide 26 Anion Gap 9 L BUN 23 H Creatinine 1.54 H Estim Creat Clear Calc 20.7 Estimated GFR 32 Random Glucose 85 Calcium 8.1 L Total Bilirubin 0.4 Direct Bilirubin 0.2 AST 21 ALT 13 Alkaline Phosphatase 83 D Troponin I High Sens B-Natriuretic Peptide Total Protein 6.1 L Albumin 2.8 L TSH 49.31 H Free T4 0.50 L COVID-[place] ([place]) COVID-19 Clin Com 05/21/21 05/21/21 05/22/21 15:02 15:04 06:48 WBC 3.7 L RBC 3.83 L Hgb 10.6 L Hct 33.1 L MCV 86.4 MCH 27.7 MCHC 32.0 RDW 19.2 H Plt Count 190 MPV 10.1 Immature Gran % (Auto) 0.5 H Neut % (Auto) 65.1 Lymph % (Auto) 25.5 [place] % (Auto) 7.3 Eos % (Auto) 1.3 Baso % (Auto) 0.3 Lymph # (Auto) 1.0 L [place] # (Auto) 0.3 Eos # (Auto) 0.1 Baso # (Auto) 0.0 Abs Immat Gran (auto) 0.02 Absolute Neuts (auto) 2.4 Absolute Nucleated RBC 0.000 Nucleated RBC % (auto) 0.0 PT INR Sodium Potassium Chloride Carbon Dioxide Anion Gap BUN Creatinine Estim Creat Clear Calc Estimated GFR Random Glucose Calcium Total Bilirubin Direct Bilirubin AST ALT Alkaline Phosphatase Troponin I High Sens 24.6 H B-Natriuretic Peptide 674 H Total Protein Albumin TSH Free T4 COVID-19 ([place] Negative COVID-19 Clin Com See Note 05/22/21 06:48 WBC RBC Hgb Hct MCV MCH MCHC RDW Plt Count MPV Immature Gran % (Auto) Neut % (Auto) Lymph % (Auto) [place] % (Auto) Eos % (Auto) Baso % (Auto) Lymph # (Auto) [place] # (Auto) Eos # (Auto) Baso # (Auto) Abs Immat Gran (auto) Absolute Neuts (auto) Absolute Nucleated RBC Nucleated RBC % (auto) PT INR Sodium 139 Potassium 5.0 Chloride 109 H Carbon Dioxide 25 Anion Gap 10 L BUN 24 H Creatinine 1.59 H Estim Creat Clear Calc 20.1 Estimated GFR 31 Random Glucose 89 Calcium 8.1 L Total Bilirubin Direct Bilirubin AST ALT Alkaline Phosphatase Troponin I High Sens B-Natriuretic Peptide Total Protein Albumin TSH Free T4 [place] COVID-19 Clin Com Imaging Radiologist's impression: Impressions Chest X-Ray 05/21/21 14:42 IMPRESSION: Hypoexpanded lungs with increased from markings in both lungs without acute consolidation or effusion. Heart size is borderline normal. There is a right central venous port in good position. It is unchanged. Assessment and Plan (1) Atrial fibrillation with RVR: Status: Acute Patient with recurrent atrial fibrillation, was control in the past with amiodarone and had normalization of LV ejection fraction. However has recurrent atrial fibrillation without any medications. In the past also her oral anticoagulation was discontinued due to GI bleed which was significant. She remains anemic. Currently a blood pressure is on the softer side. Heart rate is borderline controlled. Will transition her to p.o. metoprolol 12.5 mg q.6 hours. Taper and discontinue Cardizem after the 1st dose. Mid need to digitalize her. For now will manage her with rate control. This was discussed with the daughter given that she had prior significant GI bleed is currently off anticoagulation duration of atrial fibrillation is unknown. Would consider GI consultation to see if she would be a candidate for oral anticoagulation therapy. (2) Acute CHF: Status: Acute Acute congestive heart failure most likely due to development of recurrent atrial fibrillation. In the past she developed significant cardiomyopathy related to atrial fibrillation. Duration of AFib is unknown. Continue rate control as above. Echocardiogram to be pursued. Continue gentle diuresis with Lasix 20 mg IV push b.i.d.. Strict intake and output chart needs to be pursued. Continue to trend BMP and electrolytes and replace as needed. Given her softer blood pressure would hold off adding any other heart failure medications at this point in time. Will follow with you. Thank you for allowing me to partake in the care Procedures Date of Service Date of Service: 05/22/21
[2021-05-22 13:06] LABS: Appearance Urine HAZY; Color Urine YELLOW; Glucose Urine UA NEG (NEG); Leukocyte Esterase Urine 3+ (NEG); Nitrite Urine POS (NEG); PH 6.5 (5.0-8.0); Specific Gravity - Urine 1.015 (1.005-1.025); UACC Culture Trigger YES; Urine Blood 3+ (NEG); Urine Ketones NEG (NEG); Urine Protein 1+ MG/DL (NEG-TRACE)
[2021-05-22 13:25] LABS: WBC Clumps Urine NOTED
[2021-05-22 13:26] LABS: Bacteria Urine 2+ /LPF; Squamous Epithelial Cell Urine TRACE /LPF
--- NOTE | 2021-05-22 15:31 | P.PNIM_ITS ---
Subjective Subjective Date of Service: 05/22/21 Review of Systems Follow up CHF No sob or chest pain baseline dementia Physical Exam Vital Signs: Vital Signs: Last Vital Signs Temp 97.7 F 05/22/21 07:58 Pulse 98 05/22/21 07:58 Resp 20 05/22/21 07:58 BP 105/44 L 05/22/21 07:58 Pulse Ox 90 L 05/22/21 07:58 BMI result Body Mass Index 26.0 Const: Other: Appearing in no acute distress lung sounds are clear to auscultation heart regular rate rhythm, clear S1, S2 positive bowel sounds, abdomen is soft, nontender neuro patient is alert x3, no focal deficits Objective Data Active Medications Acetaminophen (Acetaminophen 325 Mg Tablet) 650 mg PO Q6H PRN PRN Reason: Pain, Mild (Pain Scale 1-3) Diltiazem HCl (Diltiazem Hcl 30 Mg Tablet) 30 mg PO QID [facility]; Protocol Last Admin: 05/22/21 09:46 Dose: 30 mg Documented by: DANILO Furosemide (Furosemide 20 Mg/2 Ml Vial) 20 mg IVPUSH BID@0900,1800 [facility]; Protocol Last Admin: 05/22/21 09:55 Dose: 20 mg Documented by: DANILO Heparin Sodium (Porcine) (Heparin Sodium,Porcine 5,000 Unit/Ml Vial) 5,000 unit SUBCUT Q12H [facility] Last Admin: 05/22/21 06:24 Dose: 5,000 unit Documented by: SAMANTHA Diltiazem HCl 125 mg/ Sodium (Chloride) 125 mls @ 0 mls/hr IVCONT .Q0M [facility]; Protocol Last Titration: 05/21/21 21:54 Dose: 0 mg/hr, 0 mls/hr Documented by: JUSTIN Levothyroxine Sodium (Levothyroxine Sodium 25 Mcg Tablet) 25 mcg PO DAILY@0600 [facility] Last Admin: 05/22/21 07:19 Dose: 25 mcg Documented by: DANILO Ondansetron HCl (Ondansetron Hcl 4 Mg/2 Ml Vial) 4 mg IVPUSH Q8H PRN PRN Reason: Nausea and Vomiting Pharmacy Consult (Consult Rx Perform Med Rec) 1 each MISCELLANE ONCE PRN PRN Reason: Consult order Sodium Chloride (0.9 % Sodium Chloride Flush 3 Ml Syringe) 3 ml IVFLUSH QSHIFT [facility] Last Admin: 05/22/21 15:12 Dose: Not Given Documented by: DANILO Non-Admin Reason: Med Not Available Trazodone HCl (Trazodone Hcl 100 Mg Tablet) 100 mg PO DAILY PRN PRN Reason: Anxiety Last Admin: 05/21/21 18:27 Dose: 100 mg Documented by: JUSTIN Trazodone HCl (Trazodone Hcl 100 Mg Tablet) 100 mg PO BEDTIME [facility] Last Admin: 05/21/21 21:59 Dose: Not Given Documented by: JUSTIN Non-Admin Reason: Previously Administered Labs CBC & Chem 7: 05/22/21 06:48 05/22/21 06:48 Labs: Laboratory Results - last 24 hr 05/21/21 05/21/21 05/21/21 15:02 15:02 15:04 MCV MCH MCHC RDW Plt Count MPV Immature Gran % (Auto) Neut % (Auto) Lymph % (Auto) [place] % (Auto) Eos % (Auto) Baso % (Auto) Lymph # (Auto) [place] # (Auto) Eos # (Auto) Baso # (Auto) Abs Immat Gran (auto) Absolute Neuts (auto) Absolute Nucleated RBC Nucleated RBC % (auto) Anion Gap 9 L Estim Creat Clear Calc 20.7 Estimated GFR 32 Random Glucose 85 Calcium 8.1 L Total Bilirubin 0.4 Direct Bilirubin 0.2 AST 21 ALT 13 Alkaline Phosphatase 83 D Troponin I High Sens 24.6 H B-Natriuretic Peptide 674 H Total Protein 6.1 L Albumin 2.8 L TSH 49.31 H Free T4 0.50 L Urine Color Urine Appearance Urine pH Ur Specific [place] Urine Protein Urine Glucose (UA) Urine Ketones Urine Blood Urine Nitrite Ur Leukocyte Esterase Urine RBC Urine WBC Urine WBC Clumps Ur Squamous Epith Cells Urine Bacteria COVID-19 ([place]) Negative COVID-19 Clin Com See Note 05/22/21 05/22/21 05/22/21 06:48 06:48 12:51 MCV 86.4 MCH 27.7 MCHC 32.0 RDW 19.2 H Plt Count 190 MPV 10.1 Immature Gran % (Auto) 0.5 H Neut % (Auto) 65.1 Lymph % (Auto) 25.5 [place] % (Auto) 7.3 Eos % (Auto) 1.3 Baso % (Auto) 0.3 Lymph # (Auto) 1.0 L [place] # (Auto) 0.3 Eos # (Auto) 0.1 Baso # (Auto) 0.0 Abs Immat Gran (auto) 0.02 Absolute Neuts (auto) 2.4 Absolute Nucleated RBC 0.000 Nucleated RBC % (auto) 0.0 Anion Gap 10 L Estim Creat Clear Calc 20.1 Estimated GFR 31 Random Glucose 89 Calcium 8.1 L Total Bilirubin Direct Bilirubin AST ALT Alkaline Phosphatase Troponin I High Sens B-Natriuretic Peptide Total Protein Albumin TSH Free T4 Urine Color YELLOW Urine Appearance HAZY Urine pH 6.5 Ur Specific [place] 1.015 Urine Protein 1+ H Urine Glucose (UA) NEG Urine Ketones NEG Urine Blood 3+ H Urine Nitrite POS H Ur Leukocyte Esterase 3+ H Urine RBC 10-14 H Urine WBC 15-29 H Urine WBC Clumps NOTED Ur Squamous Epith Cells TRACE Urine Bacteria 2+ COVID-19 ([place] COVID-19 Clin Com Assessment and Plan (1) Hematuria: Status: Resolved Assessment and Plan: 86 year old women admitted with Afib rvr, CHF. graduated hospice 3 months ago and has not been on medications since 08/2020. Afib rvr acute on chronic afib will stop diltiazem drip will add metoprolol 12.5 Q6h cardiology following echo pending telemetry CHF. pitting edema noted continue IV lasix 20mg BID daily weight intake and output? ? CKD appears to be close to baseline Hypothyroidism Not on medications will start levothyroxine 25mcg daily ( previous dose 50mcg) DVT prophylaxis with heparin Attending Dr. Spencer DNR Quality Stroke Does the patient have a stroke diagnosis?: No VTE Prior VTE?: No VTE Risk Level:: Medical - moderate - high VTE Device Contraindication: Treatment Not Indicated VTE Drug Contraindication: N/A - Med Ordered
[2021-05-22] MEDS: Metoprolol Tartrate 12.5 MG HALFTAB PO ×2 (17:09→21:01)
--- NOTE | 2021-05-22 17:25 | PC.NURSE ---
ALLAN Morris made aware of pt's recent UA results. Pending further orders.
[2021-05-22 18:30] VITALS: BP 118/54; PULSE 106; RESP 16; TEMP 36.8; O2SAT 95
[2021-05-22] MEDS: cefTRIAXone sodium 1 GM in 0.9 % Sodium Chloride 50 ML IV (18:36)
[2021-05-22] MEDS: traZODone HCL 100 MG TABLET PO (21:02)
[2021-05-23] MEDS: Heparin Sodium,Porcine 5,000 UNIT/ML VIAL 5000 UNIT SUBCUT ×2 (06:32→17:48)
[2021-05-23] MEDS: Levothyroxine Sodium 25 MCG TABLET PO (06:33)
[2021-05-23 07:21] VITALS: BP 109/63; PULSE 113; RESP 18; TEMP 36.3; O2SAT 94
--- NOTE | 2021-05-23 07:23 | PC.NURSE ---
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 Pt only c/o being cold. Pt sitting up and eating breakfast indepently. Heart sounds normal and lungs diminished. Pt abd soft and non-tender. B/L LE 2-3+ pitted edema noted. Pt is due for lasix later in the morning.
--- NOTE | 2021-05-23 09:30 | CA_ITS ---
Transthoracic Echocardiogram Patient (Last, First, Middle): Amrik Gray, Gender: Female Date of : 1935 Age: 86 Procedure Date: 05/23/2021 Procedure Type: Transthoracic Echocardiogram Location: ER Height: 149.86 cm Weight: 58.51 kg BSA: 1.53 m2 Heart Rate: bpm BP: 118 / 54 mmHg Industrial Plant Custodian: BRUCE Urbina MD: Jennifer Morris NP Sports Broadcaster: Korey Cao MD Symptoms: afib Study Quality: Fair ECG Rhythm: Atrial Fibrillation Conclusions: - 1. [id number] LV systolic dysfunction with LVEF of 40-45% 2. At least moderately dilated left atrium 3. [id number] aortic stenosis 4. Severe mitral annular calcification with [id number] mitral regurgitation 5. Normal RV systolic pressure with normal right atrial pressures 6. No gross pericardial effusion Findings Left Ventricle Normal left ventricular cavity size. There is normal left ventricular wall thickness. The left ventricular systolic function is mild to moderately decreased. The visually estimated ejection fraction is between 40-45%. Diastolic function is indeterminate on the basis of available data. Right Ventricle Normal right ventricular cavity size. There is normal right ventricular systolic function. Atria The left atrium is moderately dilated. There is no evidence of interatrial shunt. The right atrium is moderately dilated. Aortic Valve There is moderate calcification of the aortic valve. There is moderate thickening of the aortic valve. There is mild to moderate aortic valve stenosis. There is no aortic valve regurgitation. Mitral Valve There is moderate anterior and severe posterior mitral leaflet thickening. There is severe mitral annular calcification. There is mild to moderate mitral valve regurgitation. There is no mitral valve stenosis. Pulmonic Valve The pulmonic valve was not well visualized. Tricuspid Valve Likely normal tricuspid valve structure and function. There is mild tricuspid valve regurgitation. The right ventricular systolic pressure is normal. Normal right atrial pressure. There is no evidence of pulmonary hypertension. Great Vessels All visible segments of the aorta are normal in size. The pulmonary artery was not well visualized. Venous The inferior vena cava is normal in size and collapses greater than 50% with inspiration. Pericardium/Pleural There is no evidence of pericardial effusion. Prior Study Comparison Changes noted compared to prior study dated: 05/26/2020. LV systolic function is lower. Aortic stenosis is noted Measurements 2D Linear Measurements IVSd: 1.02 0.6-0.9/0.6-1.0 cm LVIDd: 4.41 3.9-5.3/4.2-5.9 cm LVIDd Index: 2.88 2.4-3.2/2.2-3.1 cm/m2 LVIDs: 3.19 2.0-3.6 cm LVPWd: 1.00 0.7-1.1 cm Ao Root: 2.80 2.1-3.5 cm LA Diam: 3.90 2.7-3.8/3.0-4.0 cm LAIDs Index: 2.55 1.5-2.3 cm/m2 LV Mass: 187.28 67-162/88-224 g LV Mass Index: 122.41 43-95/49-115 g/m2 LVOT Diam: 2.00 3.0+(-)1.3 cm 2D Systolic Function EF 4C: 44.30 >55% EF 2C: 43.90 >55% EF BiP: 43.20 >55% Aortic Valve AoV Pk Eliazar: 1.67 AoV Mn Eliazar: 1.17 AoV VTI: 0.28 AoV Pk Grad: 11.00 Aov Mn Grad: 6.00 RUSSELL Cont.VTI: 1.23 LVOT LVOT Pk Eliazar: 0.60 LVOT Mn Eliazar: 0.41 LVOT VTI: 0.11 LVOT Pk Grad: 1.00 LVOT Mn Grad: 1.00 LVOT Diam: 2.00 LVOT Area: 3.14 Right Ventricle TAPSE (mm): 1.04 TVS' Eliazar: 6.64 Tricuspid Valve TR Pk Eliazar: 2.89 TR Pk Grad: 33.00 RA Press: 3.00 RVSP: 36.00 Great Vessels Aorta Ao Root-2D: 2.80 2.0-3.7 cm Ao Asc: 2.80 2.1-3.4 cm Updated in Other Vendor System with Status of Final Korey Cao MD electronically signed on 05/23/2021 6:01:02 PM with status of Final
[2021-05-23 09:38] LABS: Hematocrit 37.3 % (37.0-47.0); Hemoglobin 11.7 g/dl (12.0-16.0); Mean Corpuscular HGB Conc 31.4 g/dl (31.0-35.0); Mean Corpuscular Hemoglobin 27.3 pg (27.0-33.0); Mean Corpuscular Volume 87.1 fL (80.0-98.0); Platelet Count 214 X10*3/uL (160-400); Red Blood Count 4.28 X10*6/uL (4.20-5.50); Red Cell Distribution Width 19.2 % (11.0-16.0); White Blood Count 5.2 X10*3/uL (4.8-10.8)
[2021-05-23] MEDS: Furosemide 20 MG/2 ML VIAL IVPUSH ×2 (09:43→18:22)
[2021-05-23] MEDS: Metoprolol Tartrate 12.5 MG HALFTAB PO ×3 (09:43→17:49)
[2021-05-23 09:55] LABS: Anion Gap 12 (12-20); Blood Urea Nitrogen 24 mg/dL (9-16); Calcium 8.5 mg/dL (8.4-10.2); Carbon Dioxide 27 mmol/L (22-29); Chloride 104 mmol/L (96-108); Creatinine Clr Calc Pharmacy 18.3; Estimated Glomerular Filt Rate 28; Glucose Random 94 mg/dL (60-115); Sodium 139 mmol/L (135-145)
[2021-05-23 10:04] LABS: B Type Natriuretic Peptide 289 pg/mL (<100)
--- NOTE | 2021-05-23 10:47 | P.CDIC_ITS ---
CDI Concurrent Query Documentation Clarification: PHYSICIAN'S DOCUMENTATION REQUEST Date of Query: 05/23/21 1047 Patient Name: Amrik Stephens Admit Date: 05/21/21 Dear Doctor, A review of the medical record indicates additional documentation may be needed. Please review below and update the documentation accordingly. Verdana 4Bd Risk Factors/Clinical Indicators/Treatments Verdana 4d PN: Assessemen/plan: CKD Appears to be close to baseline. Cr. 1.54 1.59 Gfr 32 31 Based on the above, could you clarify in the Progress Notes the appropriate diagnosis, if significant, that supports the above abnormalities and additional evaluation, monitoring, and/or treatment rendered: * Chronic kidney disease Stage 1-5 * Acute on chronic kidney disease Stage 1-5 if known * Other (please specify) * Unable to determine Use of terms such as suspected, likely, concern for, or probable (associated with a specific diagnosis that is being evaluated, monitored, or treated as if it exists) are acceptable and can be coded in the inpatient setting, when documented at the time of discharge. Thank you, Kimberly Cunningham [facility], CDIS Extension: [phone] Please use your independent medical judgment in providing your response. THIS QUERY IS PART OF THE PERMANENT MEDICAL RECORD Other Diagnosis: CKD stage 3
--- NOTE | 2021-05-23 11:24 | P.PNIM_ITS ---
Subjective Subjective Date of Service: 05/23/21 Review of Systems Follow up CHF No sob or chest pain baseline dementia Physical Exam Verdana 4l Vital Signs: Verdana 4d Verdana 4d Vital Signs: Verdana 4d Verdana 4Bd Last Vital Signs Verdana 4d P[employer] Chemical Technician New 4d P[employer] Chemical Technician New 4d Temp 97.4 F 05/23/21 07:21 Pest Control Chemical Technician New 4d Pulse 113 H 05/23/21 07:21 Pest Control Chemical Technician New 4d Resp 18 05/23/21 07:21 BP 109/63 05/23/21 07:21 Pulse Ox 94 05/23/21 07:21 BMI result Body Mass Index 26.0 Appearing in no acute distress lung sounds are clear to auscultation heart regular rate rhythm, clear S1, S2 positive bowel sounds, abdomen is soft, nontender neuro patient is alert, confused no focal deficits Objective Data Active Medications Acetaminophen (Acetaminophen 325 Mg Tablet) 650 mg PO Q6H PRN PRN Reason: Pain, Mild (Pain Scale 1-3) Digoxin (Digoxin 0.5 Mg/2 Ml Ampul) 0.25 mg IVPUSH Q6H [facility] Stop: 05/23/21 17:31 Furosemide (Furosemide 20 Mg/2 Ml Vial) 20 mg IVPUSH BID@0900,1800 [facility]; Protocol Last Admin: 05/23/21 09:43 Dose: 20 mg Documented by: DANILO Heparin Sodium (Porcine) (Heparin Sodium,Porcine 5,000 Unit/Ml Vial) 5,000 unit SUBCUT Q12H [facility] Last Admin: 05/23/21 06:32 Dose: 5,000 unit Documented by: SAMANTHA Ceftriaxone Sodium 1 gm/ (Sodium Chloride) 50 mls @ 100 mls/hr IV Q24H [facility] Last Infusion: 05/22/21 19:06 Dose: 0 mls/hr Documented by: DANILO Levothyroxine Sodium (Levothyroxine Sodium 25 Mcg Tablet) 25 mcg PO DAILY@0600 [facility] Last Admin: 05/23/21 06:33 Dose: 25 mcg Documented by: SAMANTHA Metoprolol Tartrate (Metoprolol Tartrate 12.5 Mg Halftab) 12.5 mg PO Q6H [facility]; Protocol Ondansetron HCl (Ondansetron Hcl 4 Mg/2 Ml Vial) 4 mg IVPUSH Q8H PRN PRN Reason: Nausea and Vomiting Pharmacy Consult (Consult Rx Perform Med Rec) 1 each MISCELLANE ONCE PRN PRN Reason: Consult order Sodium Chloride (0.9 % Sodium Chloride Flush 3 Ml Syringe) 3 ml IVFLUSH QSHIFT [facility] Last Admin: 05/23/21 07:07 Dose: Not Given Documented by: DANILO Non-Admin Reason: Med Not Available Trazodone HCl (Trazodone Hcl 100 Mg Tablet) 100 mg PO DAILY PRN PRN Reason: Anxiety Last Admin: 05/21/21 18:27 Dose: 100 mg Documented by: JUSTIN Trazodone HCl (Trazodone Hcl 100 Mg Tablet) 100 mg PO BEDTIME [facility] Last Admin: 05/22/21 21:02 Dose: 100 mg Documented by: SAMANTHA Labs CBC & Chem 7: 05/23/21 09:27 05/23/21 09:27 Labs: Laboratory Results - last 24 hr 05/22/21 05/23/21 05/23/21 12:51 09:27 09:27 MCV 87.1 MCH 27.3 MCHC 31.4 RDW 19.2 H Plt Count 214 MPV 10.0 Absolute Nucleated RBC 0.000 Nucleated RBC % (auto) 0.0 Anion Gap Estim Creat Clear Calc Estimated GFR Random Glucose Calcium B-Natriuretic Peptide 289 H Urine Color YELLOW Urine Appearance HAZY Urine pH 6.5 Ur Specific [place] 1.015 Urine Protein 1+ H Urine Glucose (UA) NEG Urine Ketones NEG Urine Blood 3+ H Urine Nitrite POS H Ur Leukocyte Esterase 3+ H Urine RBC 10-14 H Urine WBC 15-29 H Urine WBC Clumps NOTED Ur Squamous Epith Cells TRACE Urine Bacteria 2+ 05/23/21 09:27 MCV MCH MCHC RDW Plt Count MPV Absolute Nucleated RBC Nucleated RBC % (auto) Anion Gap 12 Estim Creat Clear Calc 18.3 Estimated GFR 28 Random Glucose 94 Calcium 8.5 B-Natriuretic Peptide Urine Color Urine Appearance Urine pH Ur Specific [place] Urine Protein Urine Glucose (UA) Urine Ketones Urine Blood Urine Nitrite Ur Leukocyte Esterase Urine RBC Urine WBC Urine WBC Clumps Ur Squamous Epith Cells Urine Bacteria Microbiology Microbiology Results: Microbiology 05/22/21 Unknown Urine Culture - Preliminary Urine clean catch - Urine ramirez top Gram negative yasmeen Assessment and Plan (1) Hematuria: Status: Resolved Plan 86 year old women admitted with Afib rvr, CHF. graduated hospice 3 months ago and has not been on medications since 08/2020. Afib rvr acute on chronic afib will stop diltiazem drip change metoprolol 25mg Q6h, add digoxin as per cardiology cardiology following echo pending telemetry CHF. pitting edema noted continue IV lasix 20mg BID daily weight intake and output, difficult to follow as patient is incont ? ? CKD stage 3. mildly worsening ? secondary to diuretics appears to be close to baseline Hypothyroidism Not on medications will start levothyroxine 25mcg daily ( previous dose 50mcg) DISPO home with likely hospice reinstatement DVT prophylaxis with heparin Attending Dr. Spencer DNR Quality Stroke Does the patient have a stroke diagnosis?: No VTE Prior VTE?: No VTE Risk Level:: Medical - moderate - high VTE Device Contraindication: Treatment Not Indicated VTE Drug Contraindication: N/A - Med Ordered
[2021-05-23 11:44] VITALS: BP 93/63; PULSE 115; RESP 18; TEMP 36.4; O2SAT 96
--- NOTE | 2021-05-23 12:23 | PC.NURSE ---
Pt assessed by cariologist MD Cao this morning. discussed case with pt's daughter for plan of care, to which daughter stated that she wanted to continue to regime in hospital for a few days and then bring pt home for [facility] hospice. New order received for IV dig with additional dose of metoprolol. MD Cao and ALLAN Morris made aware that pt already had same dose of metoprolol earlier this morning and now current BP of 93/63, HR 115. MD Cao verified that pt may get both medications, but upon admission, only metoprolol ordered. RN will continue to monitor.
--- NOTE | 2021-05-23 15:00 | PC.NURSE ---
Unable to assess urine output as pt has frequent dribbles of urine and is incontinent. Pt able to ambulate to bathroom but entire volume of output of urine unable to calculated. ALLAN Morris made aware.
[2021-05-23] MEDS: traZODone HCL 100 MG TABLET PO ×2 (15:57→19:49)
[2021-05-23 16:00] VITALS: BP 113/66; PULSE 106; RESP 16; TEMP 36.6; O2SAT 99
--- NOTE | 2021-05-23 17:12 | PM.PNCARD ---
Subjective Subjective Date of Service: 05/23/21 Principal diagnosis: Congestive heart failure atrial fibrillation. Interval history: Patient says she is feeling better. Says heart is good. However she remains in atrial fibrillation rapid ventricular response. Still remains fluid overloaded. Blood pressure is soft. Had a very long discussion with her healthcare proxy, Alina, who visit her daughter. Talked about her mother's medical condition which is only improving marginally. Patient's daughter says that the patient cause her every few minutes as she is anxious and wants to go home. Review of Systems Constitutional: Reports no additional constitutional complaints Cardiovascular: Denies chest pain, Reports leg edema, Denies Loss of Consciousness, Denies palpitations and Reports dyspnea Respiratory: Reports no additional respiratory complaints and Reports dyspnea Gastrointestinal: Reports no additional gastrointestinal complaints Genitourinary: Reports no additional female genitourinary complaints Musculoskeletal: Reports no additional musculoskeletal complaints Reports system reviewed and no additional complaints, except as documented Endocrine: Denies palpitations Physical Exam Vital Signs: Last Vital Signs Temp 97.8 F 05/23/21 16:00 Pulse 106 H 05/23/21 16:00 Resp 16 05/23/21 16:00 BP 113/66 05/23/21 16:00 Pulse Ox 99 05/23/21 16:00 BMI result Body Mass Index 26.0 Const General: cooperative, comfortable, alert and awake Nutritional Appearance: average body habitus Orientation/consciousness: patient oriented x3 Neck Neck: Yes trachea midline, Yes supple and Yes JVD Resp Effort & Inspection: normal respiratory effort Auscultation: crackles Cardio Jugular venous distension: JVD Rhythm: abnormal rhythm irregularly irregular Heart sounds: S1 normal heart sound present, S2 normal heart sound present, no click, no gallops and no murmurs Skin General skin exam: no rashes or lesions noted and ecchymosis Neuro General: patient oriented x3 and no focal motor deficits Extrem General: No clubbing, No cyanosis and Yes edema Objective Labs and Meds Result diagrams: 05/23/21 09:27 05/23/21 09:27 Lab results: Laboratory Results - last 24 hr 05/23/21 05/23/21 05/23/21 09:27 09:27 09:27 WBC 5.2 RBC 4.28 Hgb 11.7 L Hct 37.3 MCV 87.1 MCH 27.3 MCHC 31.4 RDW 19.2 H Plt Count 214 MPV 10.0 Absolute Nucleated RBC 0.000 Nucleated RBC % (auto) 0.0 Sodium 139 Potassium 4.0 Chloride 104 Carbon Dioxide 27 Anion Gap 12 BUN 24 H Creatinine 1.75 H Estim Creat Clear Calc 18.3 Estimated GFR 28 Random Glucose 94 Calcium 8.5 B-Natriuretic Peptide 289 H Progress Note: A&P Assessment and plan (1) Atrial fibrillation with RVR: Status: Acute Assessment and Plan: Patient with persistent atrial fibrillation rapid ventricular response, difficult to control rate due to softer blood pressure. Patient has no symptoms of palpitations. However courses similar to in the past which she has developed heart failure related to atrial fibrillation required rhythm control with BRYCE guided cardioversion. Discussed with patient's daughter about difficulty in managing her overall medical condition including need for further procedures. She wants no aggressive procedures and is leaning more if necessary to [facility] palliative care and hospice care as in the past. However she is willing to try some continued medical management. Her metoprolol will be increased to 25 mg Q 6 hours as long as she tolerates it. IV digoxin couple of dose. Continue low-dose Eliquis therapy. Overall prognosis is guarded. (2) Acute CHF: Status: Acute Assessment and Plan: Heart failure with worsening ejection fraction as reported, full echo pending to be reviewed. This has happened to in the past. She still appears to be fluid overloaded. Currently on low-dose diuretics however creatinine is increasing. May require further aggressive rhythm control approach if appropriate management as to be pursued. Again has discussed this with daughter who is more keen to [facility] conservative management at this point in time. Will continue to follow the patient. Greater than 1 hour of critical care time was spent with this patient in managing and coordinating her care and discussing findings with the team as well as with patient's daughter Fall Risk Details Current Medications: Current Medications Acetaminophen (Acetaminophen 325 Mg Tablet) 650 mg PO Q6H PRN PRN Reason: Pain, Mild (Pain Scale 1-3) Furosemide (Furosemide 20 Mg/2 Ml Vial) 20 mg IVPUSH BID@0900,1800 [facility]; Protocol Last Admin: 05/23/21 09:43 Dose: 20 mg Documented by: Heparin Sodium (Porcine) (Heparin Sodium,Porcine 5,000 Unit/Ml Vial) 5,000 unit SUBCUT Q12H [facility] Last Admin: 05/23/21 06:32 Dose: 5,000 unit Documented by: Ceftriaxone Sodium 1 gm/ (Sodium Chloride) 50 mls @ 100 mls/hr IV Q24H [facility] Last Infusion: 05/22/21 19:06 Dose: Infused Documented by: Levothyroxine Sodium (Levothyroxine Sodium 25 Mcg Tablet) 25 mcg PO DAILY@0600 [facility] Last Admin: 05/23/21 06:33 Dose: 25 mcg Documented by: Metoprolol Tartrate (Metoprolol Tartrate 12.5 Mg Halftab) 12.5 mg PO Q6H [facility]; Protocol Ondansetron HCl (Ondansetron Hcl 4 Mg/2 Ml Vial) 4 mg IVPUSH Q8H PRN PRN Reason: Nausea and Vomiting Pharmacy Consult (Consult Rx Perform Med Rec) 1 each MISCELLANE ONCE PRN PRN Reason: Consult order Sodium Chloride (0.9 % Sodium Chloride Flush 3 Ml Syringe) 3 ml IVFLUSH QSHIFT [facility] Last Admin: 05/23/21 14:05 Dose: Not Given Documented by: Trazodone HCl (Trazodone Hcl 100 Mg Tablet) 100 mg PO DAILY PRN PRN Reason: Anxiety Last Admin: 05/23/21 15:57 Dose: 100 mg Documented by: Trazodone HCl (Trazodone Hcl 100 Mg Tablet) 100 mg PO BEDTIME [facility] Last Admin: 05/22/21 21:02 Dose: 100 mg Documented by: Time Spent With Patient Time: Total time spent is greater than 50% in coordination of care (as documented) at patient's floor/unit and/or counseling patient: Time with patient: Greater than 35 minutes Progress Note: Quality Stroke Does the patient have a stroke diagnosis?: No Procedures Date of Service Date of Service: 05/23/21
[2021-05-23] MEDS: cefTRIAXone sodium 1 GM in 0.9 % Sodium Chloride 50 ML IV (17:48)
[2021-05-23 19:10] VITALS: BP 128/73; PULSE 120; RESP 20; TEMP 36.7; O2SAT 94
[2021-05-23] MEDS: 0.9 % Sodium Chloride Flush 3 ML SYRINGE IVFLUSH (19:49)
[2021-05-24] VITALS (8 sets, daily range): BP systolic 86–140; BP diastolic 58–81; PULSE 80–130; RESP 20; TEMP 36–37; O2SAT 93–99
[2021-05-24] MEDS: Metoprolol Tartrate 12.5 MG HALFTAB PO ×2 (00:59→06:27)
[2021-05-24] MEDS: Heparin Sodium,Porcine 5,000 UNIT/ML VIAL 5000 UNIT SUBCUT ×2 (06:26→16:32)
[2021-05-24] MEDS: Levothyroxine Sodium 25 MCG TABLET PO (06:27)
[2021-05-24 07:02] LABS: B Type Natriuretic Peptide 388 pg/mL (<100)
[2021-05-24 07:13] LABS: Anion Gap 14 (12-20); Blood Urea Nitrogen 22 mg/dL (9-16); Calcium 8.1 mg/dL (8.4-10.2); Carbon Dioxide 25 mmol/L (22-29); Chloride 103 mmol/L (96-108); Creatinine Clr Calc Pharmacy 19.6; Estimated Glomerular Filt Rate 30; Glucose Random 79 mg/dL (60-115); Potassium 4.6 mmol/L (3.3-5.1); Sodium 137 mmol/L (135-145)
--- NOTE | 2021-05-24 08:15 | ECG_ITS ---
Test Reason : ekg changes Blood Pressure : / mmHG Vent. Rate : 110 BPM Atrial Rate : 000 BPM P-R Int : 000 ms QRS Dur : 074 ms QT Int : 366 ms P-R-T Axes : 000 -21 165 degrees QTc Int : 495 ms Atrial fibrillation with rapid ventricular response Septal infarct (cited on or before 21-MAY-2021) Abnormal ECG When compared with ECG of 21-MAY-2021 13:58, Atrial fibrillation with rapid ventricular response has replaced atrial flutter Nonspecific T wave abnormality now evident in Anterior leads Referred By: Jordana Buam Electronically Signed By:LAURY CHRISTIANSON MD
[2021-05-24] MEDS: Metoprolol Tartrate 25 MG TABLET PO ×2 (08:32→22:40)
[2021-05-24] MEDS: 0.9 % Sodium Chloride Flush 3 ML SYRINGE IVFLUSH ×3 (08:33→22:40)
[2021-05-24] MEDS: Furosemide 20 MG/2 ML VIAL IVPUSH (08:33)
[2021-05-24] MEDS: Digoxin 0.125 MG TABLET PO (09:41)
--- NOTE | 2021-05-24 15:29 | MHC.CM.PN ---
IMM 05/24/20 Female 86 DX AFB RVR HF. She lives in a 2 family house, 1st floor. A Dtr lives on 2nd floor. Family provides care 18/11. She was on hospice. She graduated 09/15. All med except Trazadone were stopped. DP home with Hospice vs Home care. Family will provide transportation. HCP is on file.
[2021-05-24] MEDS: cefTRIAXone sodium 1 GM in 0.9 % Sodium Chloride 50 ML IV (16:43)
--- NOTE | 2021-05-24 16:43 | PM.PNCARD ---
Subjective Subjective Date of Service: 05/24/21 Principal diagnosis: Congestive heart failure atrial fibrillation. Interval history: Patient says she feels well. Her leg swelling is improved. She is not short of breath. However remains in AFib with slightly rapid ventricular response. Has not been able to tolerate higher metoprolol dose with low blood pressure. She denies any lightheadedness or loss of consciousness. She wants to go home. Review of Systems Constitutional: Reports no additional constitutional complaints Cardiovascular: Reports no additional cardiovascular complaints, Denies lightheadedness, Denies Loss of Consciousness and Denies palpitations Respiratory: Reports no additional respiratory complaints Gastrointestinal: Reports no additional gastrointestinal complaints Genitourinary: Reports no additional female genitourinary complaints Musculoskeletal: Reports no additional musculoskeletal complaints Skin/Breast: Reports system reviewed and no additional complaints, except as docu Reports system reviewed and no additional complaints, except as documented Psychiatric: Reports no additional psychiatric complaints Endocrine: Reports no additional endocrine complaints and Denies palpitations Physical Exam Vital Signs: Last Vital Signs Temp 98.3 F 05/24/21 15:19 Pulse 80 05/24/21 15:19 Resp 20 05/24/21 15:19 BP 138/69 05/24/21 15:19 Pulse Ox 96 05/24/21 15:19 BMI result Body Mass Index 26.0 Objective Labs and Meds Result diagrams: 05/23/21 09:27 05/24/21 05:52 Lab results: Laboratory Results - last 24 hr 05/24/21 05/24/21 05:52 05:52 Sodium 137 Potassium 4.6 Chloride 103 Carbon Dioxide 25 Anion Gap 14 BUN 22 H Creatinine 1.63 H Estim Creat Clear Calc 19.6 Estimated GFR 30 Random Glucose 79 Calcium 8.1 L B-Natriuretic Peptide 388 H Progress Note: A&P Assessment and plan (1) Atrial fibrillation with RVR: Status: Acute Assessment and Plan: Atrial fibrillation with still difficult to control rate. Started on p.o. digoxin 3 times a week. Cannot tolerate higher dose of metoprolol due to low blood pressure. Will switch to 25 mg b.i.d.. Hopefully this will lead to better heart rate control by tomorrow. If adequate rate control can be discharged home and then follow up as outpatient. In the past has done well with rhythm control approach with better rate control and heart failure syndrome as improved. However cannot start on amiodarone at this point time as she has not been anticoagulated with higher stroke risk at this point time. Will anticoagulated with Eliquis 2.5 mg b.i.d. (2) CHF (congestive heart failure): Status: Acute Assessment and Plan: CHF clinically appears to be euvolemic. Has developed some rate related cardiomyopathy. Clinically has diuresed well. Switch to p.o. Lasix. Strict intake and output chart. CHF education to be provided. If by tomorrow patient appears stable and rate better control can be discharged and will follow up as outpatient. Fall Risk Details Current Medications: Current Medications Acetaminophen (Acetaminophen 325 Mg Tablet) 650 mg PO Q6H PRN PRN Reason: Pain, Mild (Pain Scale 1-3) Digoxin (Digoxin 0.125 Mg Tablet) 0.125 mg PO Q2D [facility] Last Admin: 05/24/21 11:05 Dose: Not Given Documented by: Furosemide (Furosemide 40 Mg Tablet) 40 mg PO DAILY [facility]; Protocol Heparin Sodium (Porcine) (Heparin Sodium,Porcine 5,000 Unit/Ml Vial) 5,000 unit SUBCUT Q12H [facility] Last Admin: 05/24/21 06:26 Dose: 5,000 unit Documented by: Ceftriaxone Sodium 1 gm/ (Sodium Chloride) 50 mls @ 100 mls/hr IV Q24H [facility] Last Infusion: 05/23/21 18:17 Dose: Infused Documented by: Levothyroxine Sodium (Levothyroxine Sodium 25 Mcg Tablet) 25 mcg PO DAILY@0600 [facility] Last Admin: 05/24/21 06:27 Dose: 25 mcg Documented by: Metoprolol Tartrate (Metoprolol Tartrate 25 Mg Tablet) 25 mg PO BID [facility]; Protocol Ondansetron HCl (Ondansetron Hcl 4 Mg/2 Ml Vial) 4 mg IVPUSH Q8H PRN PRN Reason: Nausea and Vomiting Pharmacy Consult (Consult Rx Perform Med Rec) 1 each MISCELLANE ONCE PRN PRN Reason: Consult order Sodium Chloride (0.9 % Sodium Chloride Flush 3 Ml Syringe) 3 ml IVFLUSH QSHIFT [facility] Last Admin: 05/24/21 08:33 Dose: 3 ml Documented by: Trazodone HCl (Trazodone Hcl 100 Mg Tablet) 100 mg PO DAILY PRN PRN Reason: Anxiety Last Admin: 05/23/21 15:57 Dose: 100 mg Documented by: Trazodone HCl (Trazodone Hcl 100 Mg Tablet) 100 mg PO BEDTIME [facility] Last Admin: 05/23/21 19:49 Dose: 100 mg Documented by: Time Spent With Patient Time: Total time spent is greater than 50% in coordination of care (as documented) at patient's floor/unit and/or counseling patient: Time with patient: 15 - 24 minutes Progress Note: Quality Stroke Does the patient have a stroke diagnosis?: No Procedures Date of Service Date of Service: 05/24/21
--- NOTE | 2021-05-24 17:41 | P.PNIM_ITS ---
Subjective Subjective Date of Service: 05/24/21 Interval History: seen and examined this morning follow up for afib, chf denies sob, chest pain this morning reports feeling well this morning Review of Systems Review of Systems: Yes all other systems are reviewed and are negative Constitutional Constitutional: Denies chills and Denies fever(s) Cardiovascular Cardiovascular: Denies palpitations and Denies dyspnea Respiratory Respiratory: Denies dyspnea Endocrine Endocrine: Denies palpitations Physical Exam Verdana 4l Vital Signs: Verdana 4d Verdana 4d Vital Signs: Verdana 4d Verdana 4Bd Last Vital Signs Verdana 4d Credit Collection Associate New 4d Credit Collection Associate New 4d Temp 98.3 F 05/24/21 15:19 Credit Collection Associate New 4d Pulse 80 05/24/21 15:19 Credit Collection Associate New 4d Resp 20 05/24/21 15:19 BP 138/69 05/24/21 15:19 Pulse Ox 96 05/24/21 15:19 BMI result Body Mass Index 26.0 Const: General: cooperative, comfortable, no acute distress, alert and awake Nutritional Appearance: average body habitus Resp: Effort & Inspection: normal respiratory effort and able to speak in complete sentences Auscultation: clear to auscultation bilaterally Cardio: Rate: regular rate Rhythm: abnormal rhythm irregularly irregular GI: Palpation (GI): Soft to palpation and nontender Extrem: Other: no leg edema Objective Data Active Medications Acetaminophen (Acetaminophen 325 Mg Tablet) 650 mg PO Q6H PRN PRN Reason: Pain, Mild (Pain Scale 1-3) Digoxin (Digoxin 0.125 Mg Tablet) 0.125 mg PO Q2D [facility] Last Admin: 05/24/21 11:05 Dose: Not Given Documented by: ELENA Non-Admin Reason: Previously Administered Furosemide (Furosemide 40 Mg Tablet) 40 mg PO DAILY [facility]; Protocol Heparin Sodium (Porcine) (Heparin Sodium,Porcine 5,000 Unit/Ml Vial) 5,000 unit SUBCUT Q12H [facility] Last Admin: 05/24/21 16:32 Dose: 5,000 unit Documented by: ELENA Ceftriaxone Sodium 1 gm/ (Sodium Chloride) 50 mls @ 100 mls/hr IV Q24H [facility] Last Infusion: 05/24/21 17:15 Dose: 0 mls/hr Documented by: ELENA Levothyroxine Sodium (Levothyroxine Sodium 25 Mcg Tablet) 25 mcg PO DAILY@0600 [facility] Last Admin: 05/24/21 06:27 Dose: 25 mcg Documented by: KAMRYN Metoprolol Tartrate (Metoprolol Tartrate 25 Mg Tablet) 25 mg PO BID [facility]; Protocol Ondansetron HCl (Ondansetron Hcl 4 Mg/2 Ml Vial) 4 mg IVPUSH Q8H PRN PRN Reason: Nausea and Vomiting Pharmacy Consult (Consult Rx Perform Med Rec) 1 each MISCELLANE ONCE PRN PRN Reason: Consult order Sodium Chloride (0.9 % Sodium Chloride Flush 3 Ml Syringe) 3 ml IVFLUSH QSHIFT [facility] Last Admin: 05/24/21 16:32 Dose: 3 ml Documented by: ELENA Trazodone HCl (Trazodone Hcl 100 Mg Tablet) 100 mg PO DAILY PRN PRN Reason: Anxiety Last Admin: 05/23/21 15:57 Dose: 100 mg Documented by: LIBERTY-MALSUSAN Trazodone HCl (Trazodone Hcl 100 Mg Tablet) 100 mg PO BEDTIME [facility] Last Admin: 05/23/21 19:49 Dose: 100 mg Documented by: DENISEOIC Labs CBC & Chem 7: 05/23/21 09:27 05/24/21 05:52 Labs: Laboratory Results - last 24 hr 05/24/21 05/24/21 05:52 05:52 Anion Gap 14 Estim Creat Clear Calc 19.6 Estimated GFR 30 Random Glucose 79 Calcium 8.1 L B-Natriuretic Peptide 388 H Microbiology Microbiology Results: Microbiology 05/22/21 Unknown Urine Culture - Final Urine clean catch - Urine ramirez top Klebsiella pneumoniae Assessment and Plan (1) Acute CHF: Status: Acute (2) Atrial fibrillation with RVR: Status: Acute (3) Hypothyroidism: Status: Acute Plan 86 year old women admitted with Afib rvr, CHF. graduated hospice 3 months ago and has not been on medications since 08/2020. Afib rvr HR uncontrolled metoprolol increased to 25mg Q6h, added digoxin as per cardiology rec. BP then in the 80s, pt asymptomatic, dose of metoprolol changed to 25mg bid. cardiology following was previously on OAC, but was discontinued while on hospice. 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 CKD stage 3. mildly worsening ? secondary to diuretics appears to be close to baseline Hypothyroidism Not on medications will start levothyroxine 25mcg daily ( previous dose 50mcg) DVT prophylaxis with Patsy Attending Dr. Spencer DNR Quality Stroke Does the patient have a stroke diagnosis?: No VTE Prior VTE?: No VTE Risk Level:: Medical - moderate - high VTE Device Contraindication: Treatment Not Indicated VTE Drug Contraindication: N/A - Med Ordered
--- NOTE | 2021-05-24 19:25 | PC.NURSE ---
1700 remains in A Fib. Denies any s/s. BP also low and PA aware. Pt denies dizziness. Meds adjusted, will monitor. Voiding in commode.
[2021-05-24] MEDS: Apixaban 2.5 MG TABLET PO (22:39)
[2021-05-24] MEDS: traZODone HCL 100 MG TABLET PO (22:39)
[2021-05-25 04:00] VITALS: BP 122/73; PULSE 97; RESP 18; TEMP 36.9; O2SAT 97
[2021-05-25] MEDS: Levothyroxine Sodium 25 MCG TABLET PO (05:50)
[2021-05-25 08:00] VITALS: BP 138/78; PULSE 138; RESP 16; TEMP 36.2; O2SAT 95
--- NOTE | 2021-05-25 09:49 | MHC.CM.PN ---
Female 86 DX AFIB RVR HF Patient lives with family DP return home with Hospice vs Home care. Family will provide transportation.
[2021-05-25] MEDS: Apixaban 2.5 MG TABLET PO ×2 (10:09→20:03)
[2021-05-25] MEDS: Furosemide 40 MG TABLET PO (10:09)
[2021-05-25] MEDS: 0.9 % Sodium Chloride Flush 3 ML SYRINGE IVFLUSH ×3 (10:09→20:03)
[2021-05-25] MEDS: Metoprolol Tartrate 25 MG TABLET PO ×2 (10:09→20:03)
[2021-05-25 11:23] LABS: Anion Gap 14 (12-20); Blood Urea Nitrogen 21 mg/dL (9-16); Calcium 8.1 mg/dL (8.4-10.2); Carbon Dioxide 27 mmol/L (22-29); Chloride 102 mmol/L (96-108); Creatinine Clr Calc Pharmacy 17.3; Estimated Glomerular Filt Rate 26; Glucose Random 102 mg/dL (60-115); Potassium 4.6 mmol/L (3.3-5.1); Sodium 138 mmol/L (135-145)
[2021-05-25 11:30] VITALS: BP 100/66; PULSE 110; RESP 16; TEMP 36.9; O2SAT 98
--- NOTE | 2021-05-25 12:30 | PM.PNCARD ---
Subjective Subjective Date of Service: 05/25/21 Principal diagnosis: Congestive heart failure atrial fibrillation. Interval history: Atrial fibrillation has been difficult to control. She remains with tachycardia card response at 130 beats per minute. Cannot tolerate higher dose of beta-blockers due to low blood pressure. Has been started digoxin. Patient remains anxious of being in hospital. Says she feels well. Review of Systems Review of Systems Yes all other systems are reviewed and are negative Physical Exam Vital Signs: Last Vital Signs Temp 98.5 F 05/25/21 11:30 Pulse 110 H 05/25/21 11:30 Resp 16 05/25/21 11:30 BP 100/66 05/25/21 11:30 Pulse Ox 98 05/25/21 11:30 BMI result Body Mass Index 26.0 Const General: cooperative, comfortable, no acute distress, alert and awake Nutritional Appearance: average body habitus Neck Neck: Yes trachea midline, Yes supple and Yes no JVD Cardio Jugular venous distension: no JVD Rate: tachycardic Rhythm: abnormal rhythm irregularly irregular GI Auscultation: normal bowel sounds Skin General skin exam: no rashes or lesions noted Extrem General: Yes no clubbing, cyanosis or edema Objective Labs and Meds Result diagrams: 05/23/21 09:27 05/25/21 10:01 Lab results: Laboratory Results - last 24 hr 05/25/21 10:01 Sodium 138 Potassium 4.6 Chloride 102 Carbon Dioxide 27 Anion Gap 14 BUN 21 H Creatinine 1.85 H Estim Creat Clear Calc 17.3 Estimated GFR 26 Random Glucose 102 Calcium 8.1 L Progress Note: A&P Assessment and plan (1) Atrial fibrillation with RVR: Status: Acute Assessment and Plan: Atrial fibrillation with rapid ventricular response with difficult control rate due to lower blood pressure. I discussed with her daughter Alina About difficulty managing her heart rate. We discussed about starting on amiodarone for rate control. With this possibility of conversion to normal rhythm and with her not being on oral anticoagulation in the past risk of stroke. However keeping on rapid heart rate increases her risk of developing heart failure progressive heart failure syndrome. She understands and agrees. She does not want any aggressive measures such as cardioversion and/or BRYCE. Continue full oral anticoagulation as planned. (2) CHF (congestive heart failure): Status: Acute Assessment and Plan: Heart failure without any worsening symptoms at current time. Continue p.o. Lasix for now. Heart failure symptoms were discussed. If patient develops progressive heart failure syndrome, daughter will wish her to be on hospice care. Otherwise she wants her to be sent home. Once rate is better controlled will plan for discharge. Fall Risk Details Current Medications: Current Medications Acetaminophen (Acetaminophen 325 Mg Tablet) 650 mg PO Q6H PRN PRN Reason: Pain, Mild (Pain Scale 1-3) Apixaban (Apixaban 2.5 Mg Tablet) 2.5 mg PO BID [facility] Last Admin: 05/25/21 10:09 Dose: 2.5 mg Documented by: Digoxin (Digoxin 0.125 Mg Tablet) 0.125 mg PO Q2D [facility] Last Admin: 05/24/21 11:05 Dose: Not Given Documented by: Furosemide (Furosemide 40 Mg Tablet) 40 mg PO DAILY [facility]; Protocol Last Admin: 05/25/21 10:09 Dose: 40 mg Documented by: Ceftriaxone Sodium 1 gm/ (Sodium Chloride) 50 mls @ 100 mls/hr IV Q24H [facility] Last Infusion: 05/24/21 17:15 Dose: Infused Documented by: Levothyroxine Sodium (Levothyroxine Sodium 25 Mcg Tablet) 25 mcg PO DAILY@0600 [facility] Last Admin: 05/25/21 05:50 Dose: 25 mcg Documented by: Metoprolol Tartrate (Metoprolol Tartrate 25 Mg Tablet) 25 mg PO BID [facility]; Protocol Last Admin: 05/25/21 10:09 Dose: 25 mg Documented by: Ondansetron HCl (Ondansetron Hcl 4 Mg/2 Ml Vial) 4 mg IVPUSH Q8H PRN PRN Reason: Nausea and Vomiting Pharmacy Consult (Consult Rx Perform Med Rec) 1 each MISCELLANE ONCE PRN PRN Reason: Consult order Sodium Chloride (0.9 % Sodium Chloride Flush 3 Ml Syringe) 3 ml IVFLUSH QSHIFT [facility] Last Admin: 05/25/21 10:09 Dose: 3 ml Documented by: Trazodone HCl (Trazodone Hcl 100 Mg Tablet) 100 mg PO DAILY PRN PRN Reason: Anxiety Last Admin: 05/23/21 15:57 Dose: 100 mg Documented by: Trazodone HCl (Trazodone Hcl 100 Mg Tablet) 100 mg PO BEDTIME [facility] Last Admin: 05/24/21 22:39 Dose: 100 mg Documented by: Time Spent With Patient Time: Total time spent is greater than 50% in coordination of care (as documented) at patient's floor/unit and/or counseling patient: Time with patient: 25 - 35 minutes Progress Note: Quality Stroke Does the patient have a stroke diagnosis?: No Procedures Date of Service Date of Service: 05/25/21
[2021-05-25] MEDS: Amiodarone HCL 200 MG TABLET PO (14:09)
--- NOTE | 2021-05-25 14:47 | P.PNIM_ITS ---
Subjective Subjective Date of Service: 05/25/21 Interval History: seen and examined this morning follow up for afib rvr patient feels well, no sob, palpitations or chest pain Review of Systems Review of Systems: Yes all other systems are reviewed and are negative Constitutional Constitutional: Denies chills and Denies fever(s) Cardiovascular Cardiovascular: Denies palpitations and Denies dyspnea Respiratory Respiratory: Denies cough and Denies dyspnea Endocrine Endocrine: Denies palpitations Physical Exam Verdana 4l Vital Signs: Verdana 4d Verdana 4d Vital Signs: Verdana 4d Verdana 4Bd Last Vital Signs Verdana 4d Used Car Sales Supervisor New 4d Used Car Sales Supervisor New 4d Temp 98.5 F 05/25/21 11:30 Used Car Sales Supervisor New 4d Pulse 110 H 05/25/21 11:30 Used Car Sales Supervisor New 4d Resp 16 05/25/21 11:30 BP 100/66 05/25/21 11:30 Pulse Ox 98 05/25/21 11:30 BMI result Body Mass Index 26.0 Const: General: cooperative, comfortable, no acute distress, alert and awake Nutritional Appearance: average body habitus Resp: Effort & Inspection: normal respiratory effort and able to speak in complete sentences Auscultation: clear to auscultation bilaterally Cardio: Rate: regular rate Rhythm: abnormal rhythm irregularly irregular GI: Palpation (GI): Soft to palpation and nontender Extrem: Other: no leg edema Objective Data Active Medications Acetaminophen (Acetaminophen 325 Mg Tablet) 650 mg PO Q6H PRN PRN Reason: Pain, Mild (Pain Scale 1-3) Amiodarone HCl (Amiodarone Hcl 200 Mg Tablet) 200 mg PO BID [facility] Last Admin: 05/25/21 14:09 Dose: 200 mg Documented by: BAO Apixaban (Apixaban 2.5 Mg Tablet) 2.5 mg PO BID [facility] Last Admin: 05/25/21 10:09 Dose: 2.5 mg Documented by: BAO Furosemide (Furosemide 40 Mg Tablet) 40 mg PO DAILY [facility]; Protocol Last Admin: 05/25/21 10:09 Dose: 40 mg Documented by: BAO Ceftriaxone Sodium 1 gm/ (Sodium Chloride) 50 mls @ 100 mls/hr IV Q24H [facility] Last Infusion: 05/24/21 17:15 Dose: 0 mls/hr Documented by: ELENA Levothyroxine Sodium (Levothyroxine Sodium 25 Mcg Tablet) 25 mcg PO DAILY@0600 [facility] Last Admin: 05/25/21 05:50 Dose: 25 mcg Documented by: ROGERIO Metoprolol Tartrate (Metoprolol Tartrate 25 Mg Tablet) 25 mg PO BID [facility]; Protocol Last Admin: 05/25/21 10:09 Dose: 25 mg Documented by: BAO Ondansetron HCl (Ondansetron Hcl 4 Mg/2 Ml Vial) 4 mg IVPUSH Q8H PRN PRN Reason: Nausea and Vomiting Pharmacy Consult (Consult Rx Perform Med Rec) 1 each MISCELLANE ONCE PRN PRN Reason: Consult order Sodium Chloride (0.9 % Sodium Chloride Flush 3 Ml Syringe) 3 ml IVFLUSH QSHIFT [facility] Last Admin: 05/25/21 10:09 Dose: 3 ml Documented by: BAO Trazodone HCl (Trazodone Hcl 100 Mg Tablet) 100 mg PO DAILY PRN PRN Reason: Anxiety Last Admin: 05/23/21 15:57 Dose: 100 mg Documented by: LIBERTY-MALIR Trazodone HCl (Trazodone Hcl 100 Mg Tablet) 100 mg PO BEDTIME [facility] Last Admin: 05/24/21 22:39 Dose: 100 mg Documented by: ROGERIO Labs CBC & Chem 7: 05/23/21 09:27 05/25/21 10:01 Labs: Laboratory Results - last 24 hr 05/25/21 10:01 Anion Gap 14 Estim Creat Clear Calc 17.3 Estimated GFR 26 Random Glucose 102 Calcium 8.1 L Assessment and Plan (1) Atrial fibrillation with RVR: Status: Acute Plan 86 year old women admitted with Afib rvr, CHF. graduated hospice 3 months ago and has not been on medications since 08/2020. Afib rvr HR uncontrolled continue metoprolol 25mg bid. digoxin stopped and amiodorone started per cardiology rec cardiology following was previously on OAC, but was discontinued while on hospice. 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 CKD stage 3. mildly worsening ? secondary to diuretics follow renal function closely Hypothyroidism Not on medications continue levothyroxine 25mcg daily ( previous dose 50mcg) DVT prophylaxis with Patsy Attending Dr. Spencer DNR/DNI Quality Stroke Does the patient have a stroke diagnosis?: No VTE Prior VTE?: No VTE Risk Level:: Medical - moderate - high VTE Device Contraindication: Treatment Not Indicated VTE Drug Contraindication: N/A - Med Ordered
--- NOTE | 2021-05-25 15:02 | MHC.CM.PN ---
Female 86 DX AFIB RVR Plan was to discharge today. Per cardiology Patient will need to stay for medication adjustments. Anticipate discharge 3-4 days. The pts dtr/hcp Alina was notified and is in agreement with holding the discharge.
[2021-05-25 15:53] VITALS: BP 97/90; PULSE 113; RESP 18; TEMP 36.8; O2SAT 94
[2021-05-25] MEDS: cefTRIAXone sodium 1 GM in 0.9 % Sodium Chloride 50 ML IV (17:28)
[2021-05-25 20:50] VITALS: BP 125/65; PULSE 88; RESP 16; TEMP 36.8; O2SAT 95
[2021-05-26] VITALS (7 sets, daily range): BP systolic 101–158; BP diastolic 60–82; PULSE 60–100; RESP 17–20; TEMP 36.1–37.1; O2SAT 92–99
[2021-05-26] MEDS: Levothyroxine Sodium 25 MCG TABLET PO (06:30)
[2021-05-26 07:46] LABS: Anion Gap 13 (12-20); Blood Urea Nitrogen 25 mg/dL (9-16); Calcium 8.3 mg/dL (8.4-10.2); Carbon Dioxide 30 mmol/L (22-29); Chloride 100 mmol/L (96-108); Creatinine Clr Calc Pharmacy 17.2; Estimated Glomerular Filt Rate 26; Glucose Random 79 mg/dL (60-115); Potassium 4.5 mmol/L (3.3-5.1); Sodium 138 mmol/L (135-145)
[2021-05-26] MEDS: Metoprolol Tartrate 25 MG TABLET PO ×2 (09:28→20:09)
[2021-05-26] MEDS: Furosemide 40 MG TABLET PO (09:28)
[2021-05-26] MEDS: Apixaban 2.5 MG TABLET PO ×2 (09:28→20:09)
[2021-05-26] MEDS: Amiodarone HCL 200 MG TABLET PO ×2 (09:28→20:09)
[2021-05-26] MEDS: 0.9 % Sodium Chloride Flush 3 ML SYRINGE IVFLUSH ×2 (09:29→19:10)
--- NOTE | 2021-05-26 12:12 | P.PNIM_ITS ---
Subjective Subjective Date of Service: 05/26/21 Interval History: seen and examined this morning no overnight events feeling well, no shortness of breath, no cough, no chest pain Review of Systems Review of Systems: Yes all other systems are reviewed and are negative Cardiovascular Cardiovascular: Denies chest pain, Denies palpitations and Denies dyspnea on exertion Respiratory Respiratory: Denies cough and Denies dyspnea on exertion Gastrointestinal Gastrointestinal: Denies abdominal pain Endocrine Endocrine: Denies palpitations Physical Exam Verdana 4l Vital Signs: Verdana 4d Verdana 4d Vital Signs: Verdana 4d Verdana 4Bd Last Vital Signs Verdana 4d Refrigerator Cabinetmaker New 4d Refrigerator Cabinetmaker New 4d Temp 98.7 F 05/26/21 07:38 Refrigerator Cabinetmaker New 4d Pulse 98 05/26/21 11:21 Refrigerator Cabinetmaker New 4d Resp 20 05/26/21 11:21 BP 102/68 05/26/21 11:21 Pulse Ox 92 05/26/21 11:21 BMI result Body Mass Index 26.0 Const: General: cooperative, comfortable, no acute distress, alert and awake Nut ritional Appearance: average body habitus Resp: Effort & Inspection: normal respiratory effort and able to speak in complete sentences Auscultation: clear to auscultation bilaterally Cardio: Rate: regular rate Rhythm: abnormal rhythm irregularly irregular GI: Palpation (GI): Soft to palpation and nontender Extrem: Other: no leg edema Objective Data Active Medications Acetaminophen (Acetaminophen 325 Mg Tablet) 650 mg PO Q6H PRN PRN Reason: Pain, Mild (Pain Scale 1-3) Amiodarone HCl (Amiodarone Hcl 200 Mg Tablet) 200 mg PO BID [facility] Last Admin: 05/26/21 09:28 Dose: 200 mg Documented by: JARET Apixaban (Apixaban 2.5 Mg Tablet) 2.5 mg PO BID [facility] Last Admin: 05/26/21 09:28 Dose: 2.5 mg Documented by: JARET Furosemide (Furosemide 40 Mg Tablet) 40 mg PO DAILY [facility]; Protocol Last Admin: 05/26/21 09:28 Dose: 40 mg Documented by: JARET Ceftriaxone Sodium 1 gm/ (Sodium Chloride) 50 mls @ 100 mls/hr IV Q24H [facility] Last Infusion: 05/25/21 18:11 Dose: 0 mls/hr Documented by: HO.DOBROB Levothyroxine Sodium (Levothyroxine Sodium 25 Mcg Tablet) 25 mcg PO DAILY@0600 [facility] Last Admin: 05/26/21 06:30 Dose: 25 mcg Documented by: BRI Metoprolol Tartrate (Metoprolol Tartrate 25 Mg Tablet) 25 mg PO BID [facility]; Protocol Last Admin: 05/26/21 09:28 Dose: 25 mg Documented by: JARET Ondansetron HCl (Ondansetron Hcl 4 Mg/2 Ml Vial) 4 mg IVPUSH Q8H PRN PRN Reason: Nausea and Vomiting Pharmacy Consult (Consult Rx Perform Med Rec) 1 each MISCELLANE ONCE PRN PRN Reason: Consult order Sodium Chloride (0.9 % Sodium Chloride Flush 3 Ml Syringe) 3 ml IVFLUSH QSHIFT [facility] Last Admin: 05/26/21 09:29 Dose: 3 ml Documented by: JARET Trazodone HCl (Trazodone Hcl 100 Mg Tablet) 100 mg PO DAILY PRN PRN Reason: Anxiety Last Admin: 05/23/21 15:57 Dose: 100 mg Documented by: DANILO Trazodone HCl (Trazodone Hcl 100 Mg Tablet) 100 mg PO BEDTIME [facility] [place] Last Admin: 05/25/21 20:14 Dose: Not Given Documented by: BRI Non-Admin Reason: Patient Refused Labs CBC & Chem 7: 05/23/21 09:27 05/26/21 06:33 Labs: Laboratory Results - last 24 hr 05/26/21 06:33 Anion Gap 13 Estim Creat Clear Calc 17.2 Estimated GFR 26 Random Glucose 79 Calcium 8.3 L Assessment and Plan (1) Acute CHF: Status: Acute (2) Atrial fibrillation with RVR: Status: Acute Plan 86 year old women admitted with Afib rvr, CHF. graduated hospice 3 months ago a nd has not been on medications since 08/2020. Afib rvr HR under better control continue metoprolol 25mg bid. digoxin stopped and amiodorone started 05/25 per cardiology rec cardiology following was previously on OAC, but was discontinued while on hospice. resumed on Eliquis acute HFrEF ECHO from 05/23 with EF 40-45% change to PO lasix daily weight cardiology following UTI UCx growing kbebsiella sensitive to ceftriaxone continue IV ceftriaxone hypotension patient asymptomatic r/t medication, not sepsis dose of metoprolol adjusted follow BP closely ? CKD stage 3. trending up slightly, but still within baseline follow renal function closely Hypothyroidism Not on medications continue levothyroxine 25mcg daily ( previous dose 50mcg) DVT prophylaxis with Patsy Attending Dr. baron DNR/DNI dispo: home with daugther tomorrow Quality Stroke Does the patient have a stroke diagnosis?: No VTE Prior VTE?: No VTE Risk Level:: Medical - moderate - high VTE Device Contraindication: Treatment Not Indicated VTE Drug Contraindication: N/A - Med Ordered
[2021-05-26] MEDS: cefTRIAXone sodium 1 GM in 0.9 % Sodium Chloride 50 ML IV (19:10)
[2021-05-27] MEDS: 0.9 % Sodium Chloride Flush 3 ML SYRINGE IVFLUSH ×2 (00:20→08:52)
[2021-05-27 04:00] VITALS: BP 122/68; PULSE 62; RESP 20; TEMP 36.9; O2SAT 99
[2021-05-27] MEDS: Levothyroxine Sodium 25 MCG TABLET PO (06:34)
[2021-05-27 08:00] VITALS: BP 113/70; PULSE 83; RESP 18; TEMP 37.2; O2SAT 96
[2021-05-27] MEDS: Furosemide 40 MG TABLET PO (08:51)
[2021-05-27] MEDS: Apixaban 2.5 MG TABLET PO (08:51)
[2021-05-27] MEDS: Amiodarone HCL 200 MG TABLET PO (08:52)
[2021-05-27] MEDS: Metoprolol Tartrate 25 MG TABLET PO (08:52)
--- NOTE | 2021-05-27 09:45 | PM.DS ---
DS: Providers Provider Date of Service: 05/27/21 <JAYNE Goff - Last Filed: 06/07/21 18:18> Date of admission: 05/21/21 17:10 <JAYNE Goff - Last Filed: 06/07/21 18:18> Date of discharge: 05/27/21 <JAYNE Goff - Last Filed: 06/07/21 18:18> Primary care physician: Renu Simon MD <JAYNE Goff - Last Filed: 06/07/21 18:18> Consults: 05/21/21 17:14 Consult to Cardiology Routine Consulting Provider: Korey Cao Reason for consultation: afib rvr Has provider been notified: No <JAYNE Goff - Last Filed: 06/07/21 18:18> Attending physician on discharge: Mejia Carvajal <JAYNE Goff - Last Filed: 06/07/21 18:18> Discharging clinician: Jordana Baum <JAYNE Goff - Last Filed: 06/07/21 18:18> DS: Diagnosis Discharge Diagnosis (1) Acute CHF: Status: Acute <JAYNE Goff - Last Filed: 06/07/21 18:18> (2) Atrial fibrillation with RVR: Status: Acute <JAYNE Goff - Last Filed: 06/07/21 18:18> (3) Urinary tract infection: Status: Acute <JAYNE Goff - Last Filed: 06/07/21 18:18> DS: Summary Hospital Course Hospital Course: From H&P on day of admission 86 year old women presenting with increased sob and leg swelling. According to her daughter she had noted that the patient has had more swelling to her lower extremities. he patient has dementia and stated that she feels fine. She was graduated from hospice about 3 months ago and has been off all her medications except trazodone since 08/2020. She went to see her PCP and was noted to have elevated heart rate and was told to come to the ED. She was started on diltazem drip for afib rvr/flutter. Her BNP was in the high 600's. She was given lasix. Other than her heart rate being fast her other vital signs are stable. She was vaccinated x 2 with Moderna. She will be admitted for further management and treatment of Afib RVR. afib with RVR. she was initially started on cardizem drip for heart rate control. she was seen in consultation by cardiology. Her heart rate was somewhat difficult to control and required several medication adjustments. She will be discharged on amiodorone, metoprolol and Eliquis for anticoagulation. Her heart rate has been under control with these adjustments. Amiodorone dose 200 mg bid for 30 days followed by 200 mg daily. She should call to schedule follow up appointment with cardiology. Acute CHF. she was started on IV lasix. Echo showed decreased LVEF at 40-45%. She was transitioned to po lasix and will discharged with the same. UTI. Patient was initially started on IV ceftriaxone. Her urine culture grew klebsiella which was sensitive to ceftriaxone. She will be discharged home to complete course of antibiotics. hypothyroidism. she had previously been on synthroid. resumed on low dose synthroid. should have outpatient thyroid function tests repeated <JAYNE Goff - Last Filed: 06/07/21 18:18> Time Spent with Patient Time attestation: Total time spent providing and/or coordinating discharge services: <JAYNE Goff Last Filed: 06/07/21 18:18> Discharge coordination time: Greater than 30 minutes <JAYNE Goff Last Filed: 06/07/21 18:18> Quality: Stroke Does the patient have a stroke diagnosis?: No <JAYNE Goff Last Filed: 06/07/21 18:18> Physical Exam Vital Signs: Vital Signs: Last Vital Signs Temp 99.0 F 05/27/21 08:00 Pulse 83 05/27/21 08:00 Resp 18 05/27/21 08:00 BP 113/70 05/27/21 08:00 Pulse Ox 96 05/27/21 08:00 BMI result Body Mass Index 26.0 <JAYNE Goff Last Filed: 06/07/21 18:18> Const: General: cooperative, comfortable, no acute distress, alert and awake <JAYNE Goff Last Filed: 06/07/21 18:18> Resp: Effort & Inspection: normal respiratory effort and able to speak in complete sentences <JAYNE Goff Last Filed: 06/07/21 18:18> Cardio: Heart sounds: S1 normal heart sound present and S2 normal heart sound present <JAYNE Goff Last Filed: 06/07/21 18:18> GI: Palpation (GI): Soft to palpation and nontender <JAYNE Goff Last Filed: 06/07/21 18:18> Extrem: Other: no leg edema <JAYNE Goff Last Filed: 06/07/21 18:18> DS: Data Data Completed and Pending Completed studies during hospitalization [Text1]: Procedures Dilation of Left Ureter with Intraluminal Device, Via Natural or Artificial Opening Endoscopic (05/19/20) Dilation of Right Ureter with Intraluminal Device, Via Natural or Artificial Opening Endoscopic (05/19/20) Removal of Intraluminal Device from Ureter, Via Natural or Artificial Opening Endoscopic (05/19/20) Yazidi of Cardiac Rhythm, Single (01/26/20) Transfusion of Nonautologous Red Blood Cells into Peripheral Vein, Percutaneous Approach (08/23/20) <JAYNE Goff Last Filed: 06/07/21 18:18> Discharge Plan Discharge Patient Disposition: Home, Self-Care <JAYNE Goff Last Filed: 06/07/21 18:18> Discharge Diagnosis: Afib with RVR UTI <JAYNE Goff Last Filed: 06/07/21 18:18> Referrals: Po,Renu Ignacio MD [Primary Care Provider] - 1 Week <JAYNE Goff Last Filed: 06/07/21 18:18> Discharge Medications: New amiodarone 200 mg Tablet 200 mg PO BID 30 Days Qty: 60 0RF levothyroxine 25 mcg Tablet 25 mcg PO DAILY@0600 30 Days Qty: 30 0RF metoprolol tartrate 25 mg Tablet 25 mg PO BID 30 Days Qty: 60 0RF Protocol: Hold for SBP/HR < HOLD for SBP < : 90 HOLD for HR < : 60 Eliquis 2.5 mg Tablet 2.5 mg PO BID 30 Days Qty: 60 0RF cefuroxime axetil 250 mg tablet 250 mg PO BID 4 Days Qty: 8 0RF furosemide 40 mg Tablet 40 mg PO DAILY 30 Days Qty: 30 0RF Protocol: Hold for SBP< HOLD for SBP < : 90 Continued trazodone 100 mg tablet 100 mg PO BEDTIME 0RF No Action (DME) wheelchair See Rx Instructions .Route .MEDSUPPLY Qty: 1 0RF Rx Instructions: As directed (DME) pull ups medium See Rx Instructions .Route .MEDSUPPLY Qty: 180 11RF Rx Instructions: As directed <JAYNE Goff - Last Filed: 06/07/21 18:18> Discharge Orders: Discharge Order (Routine); Ordered 05/27/21 Ordered By: Jordana Baum <JAYNE Goff - Last Filed: 06/07/21 18:18> Activity on Discharge: As tolerated <JAYNE Goff Last Filed: 06/07/21 18:18> Stand Alone Forms: Patient Portal Discharge page <JAYNE Goff Last Filed: 06/07/21 18:18> Care Plan Goals: Prevent hospital re-admission <JAYNE Goff Last Filed: 06/07/21 18:18> Health Concerns: atrial fibrillation with rapid ventricular response UTI CHF CKD <JAYNE Goff Last Filed: 06/07/21 18:18> Plan of Treatment: You have been started on a few medications to control your heart rate, to reduce the risk of stroke and to control fluid overload. you have been re-started on a blood thinner, monitor for signs of bleeding. You have been re-started on medication for your thyroid Please call to schedule a follow up appointment with the manufacturing lead Complete course of antibiotics <JAYNE Goff Last Filed: 06/07/21 18:18> Assessment: rapid afib, chf, UTI now stable for discharge home I personally evaluated and examined this in conjunction with midlv provider and agree with the management and disposition of this patient <JAYNE Goff Last Filed: 06/07/21 18:18> Discharge Date/Time: 05/27/21 16:17 <JAYNE Goff - Last Filed: 06/07/21 18:18>
--- NOTE | 2021-05-27 09:55 | MHC.CM.PN ---
Patient has been medically cleared for dc to home, no skilled services ordered. 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 IMM addressed over the phone with Alina and the original will be mailed certified letter to her and a copy placed on the chart.
--- NOTE | 2021-05-27 10:45 | PM.PNCARD ---
Subjective Subjective Date of Service: 05/27/21 Principal diagnosis: Congestive heart failure atrial fibrillation. Interval history: No cardiac symptoms. Atrial fibrillation rates are well controlled on current regimen Review of Systems Review of Systems Yes all other systems are reviewed and are negative Physical Exam Vital Signs: Last Vital Signs Temp 99.0 F 05/27/21 08:00 Pulse 83 05/27/21 08:00 Resp 18 05/27/21 08:00 BP 113/70 05/27/21 08:00 Pulse Ox 96 05/27/21 08:00 BMI result Body Mass Index 26.0 Neck Neck: Yes trachea midline, Yes supple and Yes no JVD Resp Effort & Inspection: decreased respiratory effort Auscultation: clear to auscultation bilaterally Cardio Rhythm: abnormal rhythm irregularly irregular Heart sounds: S1 normal heart sound present and S2 normal heart sound present Objective Labs and Meds Result diagrams: 05/23/21 09:27 05/26/21 06:33 Progress Note: A&P Assessment and plan (1) CHF (congestive heart failure): Status: Acute Assessment and Plan: CHF clinically euvolemic and well compensated related to recurrent atrial fibrillation slight reduction LV systolic function. Continue Lasix therapy. CHF education to be provided to the family. Daily weight monitoring and avoidance of salt loading. Continue rate control. (2) Atrial fibrillation with RVR: Status: Acute Assessment and Plan: Atrial fibrillation with better rate control amiodarone and metoprolol. There is risk of conversion to sinus rhythm with amiodarone therapy, with patient not adequately anticoagulated prior to the hospitalization could be a risk. Family is aware of the same. They agree with current treatment plan. Continue amiodarone and metoprolol. Continue full oral anticoagulation with Eliquis 2.5 mg b.i.d.. Follow up in the clinic in 4 weeks time. Also continue treat her hypothyroidism aggressively. Patient can be discharged from cardiac perspective. Fall Risk Details Current Medications: Current Medications Acetaminophen (Acetaminophen 325 Mg Tablet) 650 mg PO Q6H PRN PRN Reason: Pain, Mild (Pain Scale 1-3) Amiodarone HCl (Amiodarone Hcl 200 Mg Tablet) 200 mg PO BID [facility] Last Admin: 05/27/21 08:52 Dose: 200 mg Documented by: Apixaban (Apixaban 2.5 Mg Tablet) 2.5 mg PO BID [facility] Last Admin: 05/27/21 08:51 Dose: 2.5 mg Documented by: Furosemide (Furosemide 40 Mg Tablet) 40 mg PO DAILY [facility]; Protocol Last Admin: 05/27/21 08:51 Dose: 40 mg Documented by: Ceftriaxone Sodium 1 gm/ (Sodium Chloride) 50 mls @ 100 mls/hr IV Q24H [facility] Stop: 05/29/21 17:59 Last Infusion: 05/26/21 20:13 Dose: Infused Documented by: Levothyroxine Sodium (Levothyroxine Sodium 25 Mcg Tablet) 25 mcg PO DAILY@0600 [facility] Last Admin: 05/27/21 06:34 Dose: 25 mcg Documented by: Metoprolol Tartrate (Metoprolol Tartrate 25 Mg Tablet) 25 mg PO BID [facility]; Protocol Last Admin: 05/27/21 08:52 Dose: 25 mg Documented by: Ondansetron HCl (Ondansetron Hcl 4 Mg/2 Ml Vial) 4 mg IVPUSH Q8H PRN PRN Reason: Nausea and Vomiting Pharmacy Consult (Consult Rx Perform Med Rec) 1 each MISCELLANE ONCE PRN PRN Reason: Consult order Sodium Chloride (0.9 % Sodium Chloride Flush 3 Ml Syringe) 3 ml IVFLUSH QSHIFT [facility] Last Admin: 05/27/21 08:52 Dose: 3 ml Documented by: Trazodone HCl (Trazodone Hcl 100 Mg Tablet) 100 mg PO DAILY PRN PRN Reason: Anxiety Last Admin: 05/23/21 15:57 Dose: 100 mg Documented by: Trazodone HCl (Trazodone Hcl 100 Mg Tablet) 100 mg PO BEDTIME [facility] Last Admin: 05/26/21 20:12 Dose: Not Given Documented by: Time Spent With Patient Time: Total time spent is greater than 50% in coordination of care (as documented) at patient's floor/unit and/or counseling patient: Time with patient: 15 - 24 minutes Progress Note: Quality Stroke Does the patient have a stroke diagnosis?: No Procedures Date of Service Date of Service: 05/27/21
[2021-05-27 11:33] VITALS: PULSE 96; RESP 18; TEMP 36.8; O2SAT 97
[2021-05-27 12:13] VITALS: BP 88/60
[2021-05-27 13:04] VITALS: BP 110/60
[2021-05-27 15:05] VITALS: BP 99/59; PULSE 58; RESP 20; TEMP 36.8; O2SAT 95
== END 2021-05-27 16:17 | disposition home or self-care (01) | DRG 308 ==
LOC: HO.ED 17:04 → HO.EDOVER 23:25 → HO.IMC 05-23 17:38
PROVIDERS: Internal Medicine; Admitting Provider Nurse Practitioner Acute Care; Emergency Provider Emergency Medicine; PCP Internal Medicine; Visit Provider Physician Assistant Medical
DX: I48.20 Chronic atrial fibrillation, unspecified (principal); I50.21 Acute systolic (congestive) heart failure; I13.0 Hypertensive heart and chronic kidney disease with heart failure and stage 1 through stage 4 chronic kidney disease, or unspecified chronic kidney disease; N39.0 Urinary tract infection, site not specified; E03.9 Hypothyroidism, unspecified; B96.1 Klebsiella pneumoniae [K. pneumoniae] as the cause of diseases classified elsewhere; N18.30 Chronic kidney disease, stage 3 unspecified; Z20.822 Contact with and (suspected) exposure to COVID-19; I95.2 Hypotension due to drugs; T44.7X5A Adverse effect of beta-adrenoreceptor antagonists, initial encounter; Y92.239 Unspecified place in hospital as the place of occurrence of the external cause; Z87.891 Personal history of nicotine dependence; Z88.6 Allergy status to analgesic agent; Z79.01 Long term (current) use of anticoagulants; Z79.890 Hormone replacement therapy; Z79.899 Other long term (current) drug therapy; Z66 Do not resuscitate
CPT/HCPCS: 36415; 71045; 80048; 80076; 81001; 83880; 84439; 84443; 84484; 85025; 85027; 85610; 87086; 87088; 87186; 87635; 93005; 93306; 96374; 96376; 99285; 99291; J0696; J1940

== ENCOUNTER 2021-06-28 14:22 | Outpatient (REF) | payer MEDICARE, MEDICAID, SELFPAY ==
[2021-06-28 16:43] LABS: Alanine Aminotransferase 20 U/L (0-31); Albumin Level 3.3 g/dL (3.5-5.0); Alkaline Phosphatase 95 U/L (39-117); Anion Gap 13 (12-20); Aspartate Amino Transferase 36 U/L (5-31); Bilirubin Total 0.5 mg/dL (0.0-1.0); Blood Urea Nitrogen 20 mg/dL (9-16); Calcium 8.2 mg/dL (8.4-10.2); Carbon Dioxide 32 mmol/L (22-29); Chloride 96 mmol/L (96-108); Estimated Glomerular Filt Rate 20; Glucose Random 78 mg/dL (60-115); Potassium 4.4 mmol/L (3.3-5.1); Sodium 137 mmol/L (135-145); Total Protein 6.8 g/dL (6.5-8.0)
[2021-06-28 16:44] LABS: B Type Natriuretic Peptide 1575 pg/mL (<100)
[2021-06-28 17:04] LABS: TSH reflex Free T4 91.78 uIU/mL (0.32-4.0)
[2021-06-28 17:42] LABS: Free T4 (Free Thyroxine) 0.55 ng/dL (0.71-1.85)
== END 2021-06-28 14:23 | disposition home or self-care (01) ==
LOC: HO.LAB 14:22
PROVIDERS: PCP Internal Medicine; Referring Provider Internal Medicine; Visit Provider Nurse Practitioner Family
DX: I48.91 Unspecified atrial fibrillation (principal); I50.9 Heart failure, unspecified; I08.0 Rheumatic disorders of both mitral and aortic valves; E03.9 Hypothyroidism, unspecified; F03.90 Unspecified dementia, unspecified severity, without behavioral disturbance, psychotic disturbance, mood disturbance, and anxiety
CPT/HCPCS: 36415; 80053; 83880; 84439; 84443; 93005; 99212

== ENCOUNTER 2021-07-20 09:38 | Outpatient (REF) | payer MEDICARE, MEDICAID, SELFPAY ==
[2021-07-20 09:53] LABS: MANUAL DIFF FLAG NO
[2021-07-20 10:27] LABS: Basophils Percent Auto 0.2 % (0-2); Eosinophils Percent Auto 0.7 % (0-4); Hematocrit 37.9 % (37.0-47.0); Hemoglobin 11.8 g/dl (12.0-16.0); Imm Gran Abs Auto 0.01 X10*3/uL (0.00-0.03); Imm Gran Pct Auto 0.2 % (0.0-0.4); Lymphocytes Absolute Auto 1.2 X10*3/uL (1.2-4.9); Lymphocytes Percent Auto 27.3 % (20-40); Mean Corpuscular HGB Conc 31.1 g/dl (31.0-35.0); Mean Corpuscular Hemoglobin 28.6 pg (27.0-33.0); Mean Corpuscular Volume 91.8 fL (80.0-98.0); Mean Platelet Volume 9.5 fL (9.4-12.3); Monocytes Absolute Auto 0.3 X10*3/uL (0.1-1.2); Monocytes Percent Auto 6.8 % (2-11); Neutrophils Absolute Auto 2.8 x10*3/uL (2.0-8.3); Neutrophils Percent Auto 64.8 % (45-73); Platelet Count 235 X10*3/uL (160-400); Red Blood Count 4.13 X10*6/uL (4.20-5.50); Red Cell Distribution Width 18.6 % (11.0-16.0); White Blood Count 4.4 X10*3/uL (4.8-10.8)
[2021-07-20 10:46] LABS: Appearance Urine CLOUDY; Color Urine YELLOW; Glucose Urine UA NEG (NEG); Leukocyte Esterase Urine 3+ (NEG); Nitrite Urine POS (NEG); Specific Gravity - Urine 1.015 (1.005-1.025); Urine Blood 1+ (NEG); Urine Ketones NEG (NEG); Urine Protein 1+ MG/DL (NEG-TRACE)
[2021-07-20 10:56] LABS: Squamous Epithelial Cell Urine TRACE /LPF
[2021-07-20 10:58] LABS: B Type Natriuretic Peptide 1403 pg/mL (<100)
[2021-07-20 10:58] LABS: WBC Clumps Urine NOTED
[2021-07-20 10:59] LABS: Bacteria Urine 2+ /LPF
[2021-07-20 11:26] LABS: Alanine Aminotransferase 16 U/L (0-31); Albumin Level 3.3 g/dL (3.5-5.0); Alkaline Phosphatase 91 U/L (39-117); Anion Gap 10 (12-20); Aspartate Amino Transferase 23 U/L (5-31); Bilirubin Total 0.6 mg/dL (0.0-1.0); Blood Urea Nitrogen 18 mg/dL (9-16); Calcium 8.4 mg/dL (8.4-10.2); Carbon Dioxide 33 mmol/L (22-29); Chloride 99 mmol/L (96-108); Estimated Glomerular Filt Rate 22; Glucose Random 94 mg/dL (60-115); Potassium 4.2 mmol/L (3.3-5.1); Sodium 138 mmol/L (135-145); Total Protein 6.8 g/dL (6.5-8.0)
[2021-07-20 11:50] LABS: Free T4 (Free Thyroxine) 1.36 ng/dL (0.71-1.85); Thyroid Stimulating Hormone 9.82 uIU/mL (0.32-4.0)
== END 2021-07-20 09:39 | disposition home or self-care (01) ==
LOC: HO.LAB 09:38
PROVIDERS: PCP Internal Medicine; Visit Provider Internal Medicine
DX: I50.9 Heart failure, unspecified (principal)
CPT/HCPCS: 36415; 80053; 81001; 83880; 84439; 84443; 85025

== ENCOUNTER 2021-08-01 07:42 | Outpatient (REF) | payer MEDICARE, MEDICAID, SELFPAY ==
[2021-08-01 09:58] LABS: Appearance Urine CLOUDY; Color Urine YELLOW; Glucose Urine UA NEG (NEG); Leukocyte Esterase Urine 3+ (NEG); Nitrite Urine POS (NEG); PH 7.5 (5.0-8.0); Specific Gravity - Urine 1.015 (1.005-1.025); UACC Culture Trigger YES; Urine Blood 2+ (NEG); Urine Ketones NEG (NEG); Urine Protein 2+ MG/DL (NEG-TRACE)
[2021-08-01 10:49] LABS: Bacteria Urine 2+ /LPF; Mucus Urine 2+ /LPF; Squamous Epithelial Cell Urine 1+ /LPF; WBC Clumps Urine NOTED; WBC Urine TNTC /HPF (0-4)
== END 2021-08-01 07:43 | disposition home or self-care (01) ==
LOC: HO.LAB 07:42
PROVIDERS: PCP Internal Medicine; Visit Provider Internal Medicine
DX: R30.0 Dysuria (principal)
CPT/HCPCS: 81001; 81003; 87086

== ENCOUNTER 2021-08-27 16:36 | Inpatient (IN) | payer MEDICARE, MEDICAID, SELFPAY ==
[2021-08-27] VITALS (8 sets, daily range): BP systolic 106–130; BP diastolic 65–88; PULSE 100–142; RESP 14–23; TEMP 36.9; O2SAT 94–97; BMI 26.2
--- NOTE | ~2021-08-27 | XR_ITS ---
EXAMINATION: PORTABLE CHEST 1 VIEW CLINICAL INFORMATION: ?chf . COMPARISON: 05/21/2021. TECHNIQUE: Portable frontal view of the chest was obtained. FINDINGS: Lungs are hypoexpanded with mild asymmetric elevation of the right hemidiaphragm. Blunting of the costophrenic angles could reflect tiny effusions. There is central vascular prominence and indistinctness to the vessels suggesting mild pulmonary edema when compared to the prior study. Cardiac silhouette remains prominent with mitral annular calcification and vascular calcification in aorta. Right-sided chest port with tip near the proximal right atrium.. No acute bony abnormality. XR/XR chest 1V IMPRESSION: Although there are chronic appearing changes present there is central vascular prominence and indistinctness to the vessels suggesting mild superimposed pulmonary edema.
--- NOTE | 2021-08-27 16:58 | ECG_ITS ---
Test Reason : weakness Blood Pressure : / mmHG Vent. Rate : 147 BPM Atrial Rate : 288 BPM P-R Int : 000 ms QRS Dur : 090 ms QT Int : 318 ms P-R-T Axes : 000 -34 143 degrees QTc Int : 497 ms Rhythm shows atrial flutter with variable block with rapid ventricular response Left axis deviation Moderate voltage criteria for LVH, may be normal variant ( R in aVL , Rafael product ) Possible Anterior infarct (cited on or before 21-MAY-2021) T wave abnormality, consider lateral ischemia Abnormal ECG When compared with ECG of 24-MAY-2021 08:21, Atrial flutter has replaced Atrial fibrillation Nonspecific T wave abnormality no longer evident in Inferior leads Referred By: Generic ED Physician Electronically Signed By:LAURY CHRISTIANSON MD
[2021-08-27 17:27] LABS: MANUAL DIFF FLAG NO
[2021-08-27 17:39] LABS: Basophils Percent Auto 0.1 % (0-2); Eosinophils Percent Auto 0.3 % (0-4); Hematocrit 37.8 % (37.0-47.0); Hemoglobin 12.2 g/dl (12.0-16.0); Imm Gran Abs Auto 0.03 X10*3/uL (0.00-0.03); Imm Gran Pct Auto 0.4 % (0.0-0.4); Lymphocytes Absolute Auto 1.4 X10*3/uL (1.2-4.9); Lymphocytes Percent Auto 19.9 % (20-40); Mean Corpuscular HGB Conc 32.3 g/dl (31.0-35.0); Mean Corpuscular Hemoglobin 29.8 pg (27.0-33.0); Mean Corpuscular Volume 92.2 fL (80.0-98.0); Mean Platelet Volume 9.8 fL (9.4-12.3); Monocytes Absolute Auto 0.5 X10*3/uL (0.1-1.2); Monocytes Percent Auto 7.1 % (2-11); Neutrophils Absolute Auto 5.1 x10*3/uL (2.0-8.3); Neutrophils Percent Auto 72.2 % (45-73); Platelet Count 216 X10*3/uL (160-400); Red Cell Distribution Width 15.7 % (11.0-16.0); White Blood Count 7.1 X10*3/uL (4.8-10.8)
[2021-08-27 17:50] LABS: Anion Gap 17 (12-20); Blood Urea Nitrogen 39 mg/dL (9-16); Calcium 8.8 mg/dL (8.4-10.2); Carbon Dioxide 26 mmol/L (22-29); Chloride 101 mmol/L (96-108); Creatinine Clr Calc Pharmacy 13.3; Estimated Glomerular Filt Rate 19; Glucose Random 127 mg/dL (60-115); Potassium 4.4 mmol/L (3.3-5.1); Sodium 140 mmol/L (135-145)
[2021-08-27] MEDS: dilTIAZem HCL 50 MG/10 ML VIAL 10 MG IVPUSH ×2 (19:00→21:43)
[2021-08-27 19:05] LABS: INTERNATIONAL NORM RATIO 1.2 (0.9-1.1); Prothrombin Time 13.8 SEC (9.9-13.0)
[2021-08-27 19:07] LABS: Partial Thromboplastin Time 33.9 SEC (24.1-38.0)
[2021-08-27 19:08] LABS: Magnesium 2.4 mg/dL (1.6-2.6)
[2021-08-27 19:16] LABS: COVID-19 Test Negative (Negative)
[2021-08-27 19:17] LABS: B Type Natriuretic Peptide 2507 pg/mL (<100)
[2021-08-27 19:18] LABS: Troponin-I High Sensitivity 22.5 ng/L (<3.5-17.0)
[2021-08-27 19:29] LABS: Thyroid Stimulating Hormone 3.12 uIU/mL (0.32-4.0)
--- NOTE | 2021-08-27 21:15 | ED_ITS ---
HPI - Altered Mental Status General Chief Complaint: Weakness Stated Complaint: possible stroke Time Seen by Provider: 08/27/21 17:52 Source: patient and family Mode of arrival: wheelchair Limitations: altered mental status History of Present Illness HPI narrative: Patient with history of paroxysmal AFib hypertension anemia CHF, dementia brought by daughter for increased confusion for last 3 days patient call PCP who advised to take hydroxyzine patient took it got better but patient still feel weak and more confused lethargic, daughter noticed to have increased leg swelling on arrival patient's heart rate was in 140s AFib patient denied any chest pain . Related Data Previous Rx's Medication Instructions Recorded wheelchair #1 ea 08/24/20 pull ups medium #180 ea 01/03/21 apixaban 2.5 mg tablet (Eliquis) 2.5 mg PO BID 30 Days #60 tab 05/27/21 trazodone 100 mg tablet 100 mg PO BEDTIME 30 Days #30 tab 06/27/21 levothyroxine 75 mcg tablet 75 mcg PO DAILY@0600 30 Days #30 06/28/21 tab metoprolol tartrate 25 mg tablet 25 mg PO BID 30 Days #180 tab 06/28/21 furosemide 40 mg tablet (Lasix) 60 mg PO DAILY 90 Days #135 tab 06/29/21 nystatin 100,000 unit/gram topical 1 appl TOPICAL TID #30 g 07/27/21 ointment nystatin 100,000 unit/gram topical 1 appl TOPICAL BID #60 g 07/27/21 powder ciprofloxacin HCl 250 mg tablet 250 mg PO DAILY 5 Days #5 tab 08/01/21 (Cipro) hydroxyzine HCl 10 mg tablet 10 mg PO .COMPLEX PRN #60 tab 08/23/21 Allergies Allergy/AdvReac Type Severity Reaction Status Date / Time amlodipine [From NORVASC] Allergy Intermediate HIVES Verified 06/28/21 14:26 aspirin [ASA] Allergy Intermediate HIVES Verified 06/28/21 14:26 robert [ROBERT] Allergy Intermediate HIVES Verified 06/28/21 14:26 hydrochlorothiazide Allergy Unknown Hives Verified 06/28/21 14:26 gabapentin AdvReac Unknown dizziness Verified 06/28/21 14:26 lisinopril AdvReac Unknown Cough Verified 06/28/21 14:26 Review of Systems Review of Systems: Yes Unobtainable due to mental status PMFSH Past Medical History Medical History Anxiety Ramos's palsy Cervical cancer CHF (congestive heart failure) Cognitive impairment DVT (deep venous thrombosis) GERD (gastroesophageal reflux disease) Hospital discharge follow-up Hydronephrosis Hypercholesterolemia Hypertension Hypothyroidism Lumbar degenerative disc disease Obstructive uropathy Osteoarthritis Paroxysmal atrial fibrillation Peripheral vascular disease Vitamin D deficiency Surgical History H/O elbow surgery History of bladder surgery History of cholecystectomy Family History Family History Father Hypertension Stroke CVD (cardiovascular disease) Mother Hypoglycemia Social History Social History Household Members: Unknown / Unable to assess Household Members Other:: Daughter lives on second floor Housing: House Do you presently have visiting nurse or other home services: No Unable to assess alcohol history related to: Unknown Alcohol intake: never Patient Tobacco Use Status: Former Tobacco user Tobacco use type: Cigarette e-Cigarette/Vaping Use: Never Used Second Hand Smoke Exposure: No Advance Directives: Yes Advance Directives on File: Yes Advance Directives Date on File: 09/08/20 service: No Current occupational status: disabled Physical Exam ED Vital Signs: Vital Signs - 24 hr 08/27/21 16:59 08/27/21 18:55 08/27/21 19:13 Temperature 98.4 F Pulse Rate 133 H 142 H 116 H Respiratory Rate 16 19 20 Blood Pressure 111/87 130/88 106/65 Pulse Oximetry 97 94 94 08/27/21 19:41 Temperature Pulse Rate 124 H Respiratory Rate Blood Pressure 112/68 Pulse Oximetry BMI result Body Mass Index 26.2 Appearance: Alert. Oriented X1-2. No acute distress. Eyes: No pallor/ icterus ENT: Pharynx normal. Oral Mucosa moist Neck: Normal inspection. Neck supple. CVS: Tachycardia irregular irregular systolic ejection murmur at base Pulses normal. Respiratory: No respiratory distress. Equal air entry bilateral, no wheezing/rhonchi few basal rales Abdomen: Soft and nontender. Bowel sounds are present, no mass palpable, no CVA tenderness Skin: Skin warm and dry. Normal skin color. Normal skin turgor. Extremities: 3+ lower extremity edema. No calf tenderness Neuro: Oriented X 3. No motor deficit. No sensory deficit.No cerebellar signs , cranial nerves II-XII intact MDM - Altered Mental Status MDM Narrative Medical decision making narrative: Patient with weakness lethargic confusion likely UTI will get a UA sample blood cultures lactic acid patient afebrile at this time WBC counts normal she is not in sepsis. Also noticed patient is tachycardic secondary to atrial flutter will give her Cardizem IV x2 partially responded will start her on Cardizem drip. Patient has elevated BNP with mild CHF an x-ray also has CKD with gradually in creasing creatinine from 1.8 in 05/19 now it is 2.41 will admit patient for atrial flutter/fibrillation with fast ventricular rate with CHF with possible UTI awaiting for the urine result Medical Records Attestation: I reviewed the patient's medical records. Lab Data Attestation: I reviewed the patient's lab results. Result diagrams: 08/27/21 17:21 08/27/21 17:21 Labs: Lab Results 08/27/21 08/27/21 08/27/21 Range/Units 17:21 17:21 18:48 WBC 7.1 (4.8-10.8) X10*3/uL RBC 4.10 L (4.20-5.50) X10*6/uL Hgb 12.2 (12.0-16.0) g/dl Hct 37.8 (37.0-47.0) % MCV 92.2 (80.0-98.0) fL MCH 29.8 (27.0-33.0) pg MCHC 32.3 (31.0-35.0) g/dl RDW 15.7 (11.0-16.0) % Plt Count 216 (160-400) X10*3/uL MPV 9.8 (9.4-12.3) fL Immature Gran % (Auto) 0.4 (0.0-0.4) % Neut % (Auto) 72.2 (45-73) % Lymph % (Auto) 19.9 L (20-40) % [place] % (Auto) 7.1 (2-11) % Eos % (Auto) 0.3 (0-4) % Baso % (Auto) 0.1 (0-2) % Lymph # (Auto) 1.4 (1.2-4.9) X10*3/uL [place] # (Auto) 0.5 (0.1-1.2) X10*3/uL Eos # (Auto) 0.0 (0.0-0.4) X10*3/uL Baso # (Auto) 0.0 (0.0-0.2) X10*3/uL Abs Immat Gran (auto) 0.03 (0.00-0.03) X10*3/uL Absolute Neuts (auto) 5.1 (2.0-8.3) x10*3/uL Absolute Nucleated RBC 0.000 (0.0-0.012) X10*3/uL Nucleated RBC % (auto) 0.0 (0.0-0.2) /100WBC PT 13.8 H (9.9-13.0) SEC INR 1.2 H (0.9-1.1) APTT 33.9 (24.1-38.0) SEC Sodium 140 (135-145) mmol/L Potassium 4.4 (3.3-5.1) mmol/L Chloride 101 (96-108) mmol/L Carbon Dioxide 26 (22-29) mmol/L Anion Gap 17 (12-20) BUN 39 H D (9-16) mg/dL Creatinine 2.41 H (0.5-1.4) mg/dL Estim Creat Clear Calc 13.3 Estimated GFR 19 Random Glucose 127 H (60-115) mg/dL Calcium 8.8 (8.4-10.2) mg/dL Magnesium 2.4 (1.6-2.6) mg/dL Troponin I High Sens (<3.5-17.0) ng/L B-Natriuretic Peptide (<100) pg/mL TSH 3.12 (0.32-4.0) uIU/mL COVID-19 ([place]) (Negative) COVID-19 Clin Com 08/27/21 08/27/21 08/27/21 Range/Units 18:48 18:48 18:48 WBC (4.8-10.8) X10*3/uL RBC (4.20-5.50) X10*6/uL Hgb (12.0-16.0) g/dl Hct (37.0-47.0) % MCV (80.0-98.0) fL MCH (27.0-33.0) pg MCHC (31.0-35.0) g/dl RDW (11.0-16.0) % Plt Count (160-400) X10*3/uL MPV (9.4-12.3) fL Immature Gran % (Auto) (0.0-0.4) % Neut % (Auto) (45-73) % Lymph % (Auto) (20-40) % [place] % (Auto) (2-11) % Eos % (Auto) (0-4) % Baso % (Auto) (0-2) % Lymph # (Auto) (1.2-4.9) X10*3/uL [place] # (Auto) (0.1-1.2) X10*3/uL Eos # (Auto) (0.0-0.4) X10*3/uL Baso # (Auto) (0.0-0.2) X10*3/uL Abs Immat Gran (auto) (0.00-0.03) X10*3/uL Absolute Neuts (auto) (2.0-8.3) x10*3/uL Absolute Nucleated RBC (0.0-0.012) X10*3/uL Nucleated RBC % (auto) (0.0-0.2) /100WBC PT (9.9-13.0) SEC INR (0.9-1.1) APTT (24.1-38.0) SEC Sodium (135-145) mmol/L Potassium (3.3-5.1) mmol/L Chloride (96-108) mmol/L Carbon Dioxide (22-29) mmol/L Anion Gap (12-20) BUN (9-16) mg/dL Creatinine (0.5-1.4) mg/dL Estim Creat Clear Calc Estimated GFR Random Glucose (60-115) mg/dL Calcium (8.4-10.2) mg/dL Magnesium (1.6-2.6) mg/dL Troponin I High Sens 22.5 H (<3.5-17.0) ng/L B-Natriuretic Peptide 2507 H (<100) pg/mL TSH (0.32-4.0) uIU/mL COVID-19 ([place]) Negative (Negative) COVID-19 Clin Com See Note ECG Data ECG #1: Attestation: I personally reviewed and interpreted this ECG as follows: Interpretation: atrial flutter with variable block, ventricular rate of 147 left axis deviation LVH no acute ST T wave changes Critical Care Time Critical Care Time Critical Care Time: Yes Total Critical Care Time: 55 Attestation: I spent 55 minutes of critical care, with interventions, assessments, speaking to patient, consultants, and family. Discharge Plan Discharge Clinical Impression: Atrial flutter with rapid ventricular response, JOVON (acute kidney injury), UTI (urinary tract infection), CHF (congestive heart failure) Patient Disposition: Admitted As Inpatient
[2021-08-27] MEDS: Furosemide 20 MG/2 ML VIAL IVPUSH (21:43)
--- NOTE | 2021-08-27 21:54 | PC.NURSE ---
Pt received second 10mg Cardizem IV push dose per orders, order then got cancelled but patient already received medication, MD Carlson made aware and stated that is okay. Pt heart rate staying 90-100 at this time BP WNL. Per MD Carlson it is okay to hold Cardizem drip at this time if heart rate stays below 140s. Per MD Carlson give Cardizem drip if heart rate stays above 140s persistently.
[2021-08-27 22:01] LABS: Appearance Urine HAZY; Color Urine YELLOW; Glucose Urine UA NEG (NEG); Leukocyte Esterase Urine 2+ (NEG); Nitrite Urine NEG (NEG); PH 8.5 (5.0-8.0); Specific Gravity - Urine 1.015 (1.005-1.025); UACC Culture Trigger YES; Urine Blood 2+ (NEG); Urine Ketones NEG (NEG); Urine Protein 2+ MG/DL (NEG-TRACE)
--- NOTE | 2021-08-27 22:01 | PHA.MEDREC ---
Pharmacy Consult ? Medication Reconciliation Pharmacy has completed the medication reconciliation. Spoke with patients daughter. Pt is no longer on Eliquis or Amiodarone. She states she is stopping the hydroxyzine due to adverse effects
[2021-08-27 22:08] LABS: Bacteria Urine 4+ /LPF; Triple Phosphate Crystal Urine TRACE /LPF
[2021-08-27 22:09] LABS: Squamous Epithelial Cell Urine TRACE /LPF; WBC Urine 30-49 /HPF (0-4)
[2021-08-27 22:51] LABS: Lactic Acid 1.5 mmol/L (0.5-2.0)
[2021-08-27] MEDS: cefTRIAXone sodium 1 GM in 0.9 % Sodium Chloride 50 ML IV (22:54)
--- NOTE | 2021-08-27 23:07 | PM.IMHP ---
History of Present Illness Date of Service: 08/27/21 Chief Complaint: Altered mental status 86-year-old female with a past medical history of hypertension, hyperlipidemia, hypothyroidism, paroxysmal AFib, peripheral vascular disease, history of DVT, not on anticoagulation secondary to anemia/GI bleed; GERD, cognitive impairment, anxiety, history of cervical cancer, vitamin-D deficiency, osteoarthritis, degenerative spine disease presented to the hospital with a chief complaint of altered mental status. Spoke to the patient other bedside who mentioned that patient has been not doing well since last Friday; patient was mildly agitated the jail and has been heating the [place]; taken to the PCP on who has given her hydroxyzine and followed by patient has been mostly sleepy; not herself; and today she did not eat anything; given above concerns patient was sent to the hospital for further evaluation. Also reports that she has increased leg swelling. Patient daughter mentioned that patient is not on any anticoagulation given concerns for anemia/bleeding in the past. Denies any fevers and chills. Denies patient complaining of any chest pain. Review of all other systems is limited ER course: Per ER team patient noted to be in AFib with rapid ventricular response on presentation; given diltiazem IV push x2; was plan to start her on a diltiazem drip but heart rate improved to 90s. Urinalysis was abnormal consistent with UTI-given ceftriaxone Also noted to have elevated in the creatinine and concerns for CHF. Admitted for further management. [facility] Medical History Anxiety Ramos's palsy Cervical cancer CHF (congestive heart failure) Cognitive impairment DVT (deep venous thrombosis) GERD (gastroesophageal reflux disease) Hospital discharge follow-up Hydronephrosis Hypercholesterolemia Hypertension Hypothyroidism Lumbar degenerative disc disease Obstructive uropathy Osteoarthritis Paroxysmal atrial fibrillation Peripheral vascular disease Vitamin D deficiency Family History Father Hypertension Stroke CVD (cardiovascular disease) Mother Hypoglycemia Surgical History H/O elbow surgery History of bladder surgery History of cholecystectomy Social History Household Members: Unknown / Unable to assess Household Members Other:: Daughter lives on second floor Housing: House Do you presently have visiting nurse or other home services: No Unable to assess alcohol history related to: Unknown Alcohol intake: never Patient Tobacco Use Status: Former Tobacco user Tobacco use type: Cigarette e-Cigarette/Vaping Use: Never Used Second Hand Smoke Exposure: No Advance Directives: Yes Advance Directives on File: Yes Advance Directives Date on File: 09/08/20 service: No Current occupational status: disabled Meds Allergies Allergy/AdvReac Type Severity Reaction Status Date / Time amlodipine [From NORVASC] Allergy Intermediate HIVES Verified 06/28/21 14:26 aspirin [ASA] Allergy Intermediate HIVES Verified 06/28/21 14:26 robert [ROBERT] Allergy Intermediate HIVES Verified 06/28/21 14:26 hydrochlorothiazide Allergy Unknown Hives Verified 06/28/21 14:26 gabapentin AdvReac Unknown dizziness Verified 06/28/21 14:26 lisinopril AdvReac Unknown Cough Verified 06/28/21 14:26 Active Medications: Current Medications Acetaminophen (Acetaminophen 325 Mg Tablet) 650 mg PO Q6H PRN PRN Reason: Pain, Mild (Pain Scale 1-3) Benzonatate (Benzonatate 100 Mg Capsule) 100 mg PO TID PRN PRN Reason: Cough Furosemide (Furosemide 20 Mg Tablet) 20 mg PO DAILY@1200 ROBBIE; Protocol Furosemide (Furosemide 40 Mg Tablet) 40 mg PO DAILY [facility]; Protocol Heparin Sodium (Porcine) (Heparin Sodium,Porcine 5,000 Unit/Ml Vial) 5,000 unit SUBCUT Q12H [facility] Hydroxyzine HCl (Hydroxyzine Hcl 10 Mg Tablet) 10 mg PO BID@0700,1200 PRN PRN Reason: anxiety Diltiazem HCl 125 mg/ Sodium (Chloride) 125 mls @ 0 mls/hr IVCONT .Q0M [facility]; Protocol Levothyroxine Sodium (Levothyroxine Sodium 75 Mcg Tablet) 75 mcg PO DAILY@0600 [facility] Melatonin (Melatonin 3 Mg Tablet) 6 mg PO BEDTIME PRN PRN Reason: Insomnia Metoprolol Tartrate (Metoprolol Tartrate 25 Mg Tablet) 25 mg PO BID [facility]; Protocol Metoprolol Tartrate (Metoprolol Tartrate 5 Mg/5 Ml Vial) 5 mg IVPUSH Q6H PRN PRN Reason: HR>125 Nystatin (Nystatin Ointment 15 Gm Tube) 1 appl TOPICAL TID ROBBIE; Protocol Nystatin (Nystatin Powder 15 Gm Bottle) 1 appl TOPICAL BID [facility]BIE; Protocol Pharmacy Consult (Consult Rx Perform Med Rec) 1 each MISCELLANE ONCE PRN PRN Reason: Consult order Senna (Sennosides 8.6 Mg Tablet) 17.2 mg PO BEDTIME PRN PRN Reason: Constipation Sodium Chloride (0.9 % Sodium Chloride Flush 3 Ml Syringe) 3 ml IVFLUSH QSHIFT ROBBIE Trazodone HCl (Trazodone Hcl 100 Mg Tablet) 100 mg PO BEDTIME [facility] Home Medications Medication Instructions Recorded Confirmed Last Taken Type furosemide 40 mg tablet 20 mg PO DAILY@1200 08/27/21 08/27/21 08/27/21 History furosemide 40 mg tablet (Lasix) 40 mg PO DAILY 08/27/21 08/27/21 08/27/21 History hydroxyzine HCl 10 mg tablet 10 mg PO BID@0700,1200 PRN 08/27/21 08/27/21 08/27/21 History nystatin 100,000 unit/gram topical 1 appl TOPICAL TID 08/27/21 08/27/21 08/27/21 History ointment nystatin 100,000 unit/gram topical 1 appl TOPICAL BID 08/27/21 08/27/21 08/27/21 History powder (Nystop) Physical Exam Vital Signs and Narrative: Vital Signs: Last Vital Signs Temp 98.4 F 08/27/21 16:59 Pulse 105 H 08/27/21 22:54 Resp 14 08/27/21 22:20 BP 109/77 08/27/21 22:54 Pulse Ox 94 08/27/21 21:47 BMI result Body Mass Index 26.2 Results Labs CBC and Chem 7: 08/27/21 17:21 08/27/21 17:21 Labs: Laboratory Results - last 24 hr 08/27/21 08/27/21 08/27/21 17:21 17:21 18:48 MCV 92.2 MCH 29.8 MCHC 32.3 RDW 15.7 Plt Count 216 MPV 9.8 Immature Gran % (Auto) 0.4 Neut % (Auto) 72.2 Lymph % (Auto) 19.9 L Ware % (Auto) 7.1 Eos % (Auto) 0.3 Baso % (Auto) 0.1 Lymph # (Auto) 1.4 Ware # (Auto) 0.5 Eos # (Auto) 0.0 Baso # (Auto) 0.0 Abs Immat Gran (auto) 0.03 Absolute Neuts (auto) 5.1 Absolute Nucleated RBC 0.000 Nucleated RBC % (auto) 0.0 PT 13.8 H INR 1.2 H APTT 33.9 Anion Gap 17 Estim Creat Clear Calc 13.3 Estimated GFR 19 Random Glucose 127 H Lactic Acid Calcium 8.8 Magnesium 2.4 Troponin I High Sens B-Natriuretic Peptide TSH 3.12 Urine Color Urine Appearance Urine pH Ur Specific [place] Urine Protein Urine Glucose (UA) Urine Ketones Urine Blood Urine Nitrite Ur Leukocyte Esterase Urine RBC Urine WBC Ur Squamous Epith Cells Triple Phos Crystals Urine Bacteria COVID-19 ([place]) Dinner [facility] 08/27/21 08/27/21 08/27/21 18:48 18:48 18:48 MCV MCH MCHC RDW Plt Count MPV Immature Gran % (Auto) Neut % (Auto) Lymph % (Auto) Ware % (Auto) Eos % (Auto) Baso % (Auto) Lymph # (Auto) Ware # (Auto) Eos # (Auto) Baso # (Auto) Abs Immat Gran (auto) Absolute Neuts (auto) Absolute Nucleated RBC Nucleated RBC % (auto) PT INR APTT Anion Gap Estim Creat Clear Calc Estimated GFR Random Glucose Lactic Acid Calcium Magnesium Troponin I High Sens 22.5 H B-Natriuretic Peptide 2507 H TSH Urine Color Urine Appearance Urine pH Ur Specific [place] Urine Protein Urine Glucose (UA) Urine Ketones Urine Blood Urine Nitrite Ur Leukocyte Esterase Urine RBC Urine WBC Ur Squamous Epith Cells Triple Phos Crystals Urine Bacteria COVID-19 ([place]) Negative COVID-Annexon See Note 08/27/21 08/27/21 21:50 22:37 MCV MCH MCHC RDW Plt Count MPV Immature Gran % (Auto) Neut % (Auto) Lymph % (Auto) Ware % (Auto) Eos % (Auto) Baso % (Auto) Lymph # (Auto) Ware # (Auto) Eos # (Auto) Baso # (Auto) Abs Immat Gran (auto) Absolute Neuts (auto) Absolute Nucleated RBC Nucleated RBC % (auto) PT INR APTT Anion Gap Estim Creat Clear Calc Estimated GFR Random Glucose Lactic Acid 1.5 Calcium Magnesium Troponin I High Sens B-Natriuretic Peptide TSH Urine Color YELLOW Urine Appearance HAZY Urine pH 8.5 H Ur Specific [place] 1.015 Urine Protein 2+ H Urine Glucose (UA) NEG Urine Ketones NEG Urine Blood 2+ H Urine Nitrite NEG Ur Leukocyte Esterase 2+ H Urine RBC 5-9 H Urine WBC 30-49 H Ur Squamous Epith Cells TRACE Triple Phos Crystals TRACE Urine Bacteria 4+ COVID-19 ([place]) COVID-19 Clin Com Imaging Radiologist's Impressions: Impressions Chest X-Ray 08/27/21 19:45 IMPRESSION: Although there are chronic appearing changes present there is central vascular prominence and indistinctness to the vessels suggesting mild superimposed pulmonary edema. Assessment and Plan (1) JOVON (acute kidney injury): Status: Acute (2) UTI (urinary tract infection): Status: Acute (3) Atrial flutter with rapid ventricular response: Status: Acute (4) CHF (congestive heart failure): Status: Acute (5) Urinary tract infection: Qualifiers: Urinary tract infection type: acute cystitis Hematuria presence: without hematuria Qualified Code(s): N30.00 - Acute cystitis without hematuria Status: Acute (6) AMS (altered mental status): Status: Acute Plan 86-year-old female with a past medical history of hypertension, hyperlipidemia, hypothyroidism, paroxysmal AFib, peripheral vascular disease, history of DVT, not on anticoagulation secondary to anemia/GI bleed; GERD, cognitive impairment, anxiety, history of cervical cancer, vitamin-D deficiency, osteoarthritis, degenerative spine disease presented to the hospital with a chief complaint of altered mental status. Altered mental status: Toxic metabolic encephalopathy. Supportive care. swallow screen. Fall precautions. UTI: Continue ceftriaxone. Follow up cultures. AFib with RVR: Patient heart rate improved after couple dose of IV diltiazem push in the ER. Continue home metoprolol. Metoprolol IV p.r.n. for heart rate greater than 125. JOVON on CKD: Patient's creatinine fluctuating. Based on the recent values her baseline creatinine appears to be around 1.8-2.1; creatinine on presentation today is 2.4. Question cardiorenal. Monitor renal function while continuing diuresis. Nephrology consult. Acute on chronic CHF: Echo: April 2021-EF 40-45%, [id number] aortic stenosis, moderately dilated left atrium Patient has increased peripheral edema; proBNP elevated ; chest x-ray showed vascular congestion. Patient breathing Continue home Lasix comfortably. (will consider aggressive diuresis if the blood pressure remained stable currently being judicious given concerns for infection.) History of hypothyroidism: Continue home levothyroxine DVT prophylaxis: Subcu heparin Code status: DNR/DNI. Confirmed with the patient's daughter at bedside. Quality Stroke Does the patient have a stroke diagnosis?: No VTE Prior VTE?: No VTE Risk Level:: Medical - moderate - high VTE Device Contraindication: Treatment Not Indicated VTE Drug Contraindication: N/A - Med Ordered
[2021-08-28] VITALS (16 sets, daily range): BP systolic 92–150; BP diastolic 53–109; PULSE 80–138; RESP 16–26; TEMP 36.6–37.5; O2SAT 92–100
[2021-08-28] MEDS: Heparin Sodium,Porcine 5,000 UNIT/ML VIAL 5000 UNIT SUBCUT ×3 (00:02→22:09)
[2021-08-28] MEDS: Levothyroxine Sodium 75 MCG TABLET PO (06:28)
[2021-08-28] MEDS: dilTIAZem HCL 125 MG in 0.9 % Sodium Chloride 100 ML 10 MG IVCONT (07:14)
--- NOTE | 2021-08-28 07:28 | PC.NURSE ---
Since 0500 the patient's HR (Afib) has been steadily increasing, first occasionally max'ing out in the 140's and as time passed more frequently max'ing out in the 140's. Per MD request ( start Diltiazem drip for a rate sustained in the 140's ) I initiated the Cardizem gtt. However, the Cardizem that was required in order to mix the drip was not available in the Pyxis, even though the Pyxis believed there was some in the fridge in the med room. I notified pharmacy who brought additional Cardizem 125mg vials, I mixed the drip and initiated at 10mg/hr. Hospitalist notified. nursing report given to Opal POWELL.
[2021-08-28 07:35] LABS: MANUAL DIFF FLAG NO
[2021-08-28 07:41] LABS: Basophils Percent Auto 0.2 % (0-2); Eosinophils Absolute Auto 0.1 X10*3/uL (0.0-0.4); Hematocrit 37.3 % (37.0-47.0); Hemoglobin 12.1 g/dl (12.0-16.0); Imm Gran Abs Auto 0.01 X10*3/uL (0.00-0.03); Imm Gran Pct Auto 0.2 % (0.0-0.4); Lymphocytes Absolute Auto 1.3 X10*3/uL (1.2-4.9); Lymphocytes Percent Auto 21.6 % (20-40); Mean Corpuscular HGB Conc 32.4 g/dl (31.0-35.0); Mean Corpuscular Hemoglobin 29.6 pg (27.0-33.0); Mean Corpuscular Volume 91.2 fL (80.0-98.0); Mean Platelet Volume 9.9 fL (9.4-12.3); Monocytes Absolute Auto 0.4 X10*3/uL (0.1-1.2); Neutrophils Absolute Auto 4.3 x10*3/uL (2.0-8.3); Platelet Count 218 X10*3/uL (160-400); Red Blood Count 4.09 X10*6/uL (4.20-5.50); Red Cell Distribution Width 15.6 % (11.0-16.0); White Blood Count 6.1 X10*3/uL (4.8-10.8)
[2021-08-28 08:44] LABS: Anion Gap 16 (12-20); Blood Urea Nitrogen 39 mg/dL (9-16); Calcium 8.6 mg/dL (8.4-10.2); Carbon Dioxide 26 mmol/L (22-29); Chloride 103 mmol/L (96-108); Creatinine Clr Calc Pharmacy 15.2; Estimated Glomerular Filt Rate 22; Glucose Random 93 mg/dL (60-115); Potassium 3.8 mmol/L (3.3-5.1); Sodium 141 mmol/L (135-145)
[2021-08-28] MEDS: 0.9 % Sodium Chloride Flush 3 ML SYRINGE IVFLUSH ×3 (09:00→23:54)
[2021-08-28] MEDS: Furosemide 40 MG TABLET PO (09:00)
[2021-08-28] MEDS: Metoprolol Tartrate 25 MG TABLET PO (09:00)
[2021-08-28] MEDS: Nystatin Powder 15 GM BOTTLE 1 APPL TOPICAL (09:52)
[2021-08-28] MEDS: Nystatin Ointment 15 GM TUBE 1 APPL TOPICAL ×2 (09:52→16:10)
--- NOTE | 2021-08-28 10:09 | MHC.CM.PN ---
Addendum entered by Trang Gallego 08/28/21 10:14: Patient received 2 Moderna vaccines but no booster. Original Note: Attempted to meet with patient in regards to discharge planning. Patient has a history of dementia. Spoke with patient's daughter/HCP, Alina via telephone. Patient technically lives alone. However she goes to a day program 5 days a week. She also has a [employer] through [employer]. Patient uses a walker for mobility. Patient has been active with hospice in the past. Alina feels patient is doing very well mentally with the day program and [employer]'s at home. Alina doesn't feel VNA would be beneficial. HCP verified to be on file. PCP verified. IMM explained and left at bedside. Alina will transport patient home when medically stable. Continue to monitor for d/c needs.
--- NOTE | 2021-08-28 12:25 | MHC.SL.SWA ---
Speech Pathologist Impression: Risk of Aspiration Due to: Reduced Cognition Dysphasia Diet Status: Pt has mild oral phase dysphagia due to edentulous state. Pt is largely able to self feed w/ some help orienting to and setting up tray for meal. Liquid Consistency and Strategies for Safe Swallow: Liquid Intake Recommendation: Thin Liquid Intake Strategies: No Straws Solid Food Consistency: Dietary Recommendations: Regular Additional Modifications to Solid Foods: Avoid hard to chew solids. Pt will need help setting up tray, help being oriented to cutlery and foods on tray, and some intermittent checks during meal to make sure she is accessing food appropriately and persisting/attending to meal. Oral Medication Intake: Whole with Liquid Please contact the pharmacy regarding appropriate crushable or liquid drug formulations that are available whenever modified delivery is recommended. Compensatory Strategies and Precautions to be Taken for Safe Swallow: Sitting Upright (90 deg) No Straw Alternate Liquids/Solids Supervision While Eating and Drinking for Safe Swallow: Intermittent Supervision Foods to Avoid: Difficulty to chew and overly crunchy solids (Pt has upper dentures only) Swallowing Recommended Treatments: Recommendation for Speech: Discharged with Instructions for Home Use Comment: Pt presents w mild oral phase dysphagia due to being edentulous w/ partial dentures for upper teeth. Pt tolerates thin liquids and advanced solids, evidencing a prolonged oral phase due to mastication, and mild residual in oral cavity after swallow of solids, consistently cleared w/ oral wash. Pt is largely independent and able to self feed, but will needs some assistance setting up tray, orienting to food and implements on tray, and periodic checks to make sure she is progressing w/ meal and attending to eating. Recommend continue on current consistencies of REGULAR solids w/ THIN liquids, pills WHOLE w/Liquid. Recommend D/C speech as Pt is at baseline, does not evidence signs or risk of aspiration at this time. Frequency/Duration: n/a, D/C Speech/Swallow. Date Range for Service Req: Timeline to reassess: Clamshell Operator Clinican/Clinical Fellow: No Supervisory Statement: I have reviewed and agree with the student/clinical fellow's documentation: N/A Speech Language Pathologist: Suellen Crowder M.A., CCC-KIL[employer] HEAD HOUSE OPERATOR
--- NOTE | 2021-08-28 12:44 | PC.NURSE ---
Diltiazem drip decreased for a HR of 70s-80s a-fib on monitor
[2021-08-28] MEDS: Furosemide 20 MG TABLET PO (12:45)
--- NOTE | 2021-08-28 14:35 | P.CONCA_ITS ---
History of Present Illness History of Present Illness Date of Service: 08/28/21 Chief complaint: Afib Narrative: 86-year-old female who has background history of atrial fibrillation, congestive heart failure, urinary tract infections, and chronic kidney disease. She is presenting with confusion and sleepiness. She was started on hydroxyzine while she was in a nursing facility. It appears he became more more sleepy as the dose was titrated. Events Ali she was getting too sleepy and was brought into the hospital. Here she was noticed to be in atrial fibrillation with rapid ventricular response. She has chronic atrial fibrillation as per the daughter. She was started on Cardizem. She is feeling better after stopping hydroxy seen at this stage. No chest pain or shortness of breath. FOR[facility]LY [facility] Past Medical History Medical History Anxiety Ramos's palsy Cervical cancer CHF (congestive heart failure) Cognitive impairment DVT (deep venous thrombosis) GERD (gastroesophageal reflux disease) Hospital discharge follow-up Hydronephrosis Hypercholesterolemia Hypertension Hypothyroidism Lumbar degenerative disc disease Obstructive uropathy Osteoarthritis Paroxysmal atrial fibrillation Peripheral vascular disease Vitamin D deficiency Family History Family History Father Hypertension Stroke CVD (cardiovascular disease) Mother Hypoglycemia Surgical History Surgical History H/O elbow surgery History of bladder surgery History of cholecystectomy Social History Social History Household Members: Unknown / Unable to assess Household Members Other:: Daughter lives on second floor Housing: House Do you presently have visiting nurse or other home services: No Unable to assess alcohol history related to: Unknown Alcohol intake: never Patient Tobacco Use Status: Former Tobacco user Tobacco use type: Cigarette e-Cigarette/Vaping Use: Never Used Second Hand Smoke Exposure: No Use of substances other than those prescribed or required for medical reasons: No Advance Directives: Yes Advance Directives on File: Yes Advance Directives Date on File: 09/08/20 service: No Current occupational status: disabled Meds Allergies Allergy/AdvReac Type Severity Reaction Status Date / Time amlodipine [From NORVASC] Allergy Intermediate HIVES Verified 06/28/21 14:26 aspirin [ASA] Allergy Intermediate HIVES Verified 06/28/21 14:26 robert [ROBERT] Allergy Intermediate HIVES Verified 06/28/21 14:26 hydrochlorothiazide Allergy Unknown Hives Verified 06/28/21 14:26 gabapentin AdvReac Unknown dizziness Verified 06/28/21 14:26 lisinopril AdvReac Unknown Cough Verified 06/28/21 14:26 Active Medications: Current Medications Acetaminophen (Acetaminophen 325 Mg Tablet) 650 mg PO Q6H PRN PRN Reason: Pain, Mild (Pain Scale 1-3) Benzonatate (Benzonatate 100 Mg Capsule) 100 mg PO TID PRN PRN Reason: Cough Furosemide (Furosemide 20 Mg Tablet) 20 mg PO DAILY@1200 [facility]; Protocol Last Admin: 08/28/21 12:45 Dose: 20 mg Documented by: Furosemide (Furosemide 40 Mg Tablet) 40 mg PO DAILY [facility]; Protocol Last Admin: 08/28/21 09:00 Dose: 40 mg Documented by: Heparin Sodium (Porcine) (Heparin Sodium,Porcine 5,000 Unit/Ml Vial) 5,000 unit SUBCUT 0900,2100 [facility] Last Admin: 08/28/21 09:00 Dose: 5,000 unit Documented by: Hydroxyzine HCl (Hydroxyzine Hcl 10 Mg Tablet) 10 mg PO BID@0700,1200 PRN PRN Reason: anxiety Diltiazem HCl 125 mg/ Sodium (Chloride) 125 mls @ 0 mls/hr IVCONT .Q0M [facility]; Protocol Last Titration: 08/28/21 13:04 Dose: 5 mg/hr, 5 mls/hr Documented by: Ceftriaxone Sodium 1 gm/ (Sodium Chloride) 50 mls @ 100 mls/hr IV Q24H [facility] Levothyroxine Sodium (Levothyroxine Sodium 75 Mcg Tablet) 75 mcg PO DAILY@0600 [facility] Last Admin: 08/28/21 06:28 Dose: 75 mcg Documented by: Melatonin (Melatonin 3 Mg Tablet) 6 mg PO BEDTIME PRN PRN Reason: Insomnia Metoprolol Tartrate (Metoprolol Tartrate 25 Mg Tablet) 25 mg PO BID [facility]; Protocol Last Admin: 08/28/21 09:00 Dose: 25 mg Documented by: Metoprolol Tartrate (Metoprolol Tartrate 5 Mg/5 Ml Vial) 5 mg IVPUSH Q6H PRN PRN Reason: HR>125 Nystatin (Nystatin Ointment 15 Gm Tube) 1 appl TOPICAL TID [facility]; Protocol Last Admin: 08/28/21 09:52 Dose: 1 appl Documented by: Nystatin (Nystatin Powder 15 Gm Bottle) 1 appl TOPICAL BID [facility]; Protocol Last Admin: 08/28/21 09:52 Dose: 1 appl Documented by: Pharmacy Consult (Consult Rx Perform Med Rec) 1 each MISCELLANE ONCE PRN PRN Reason: Consult order Senna (Sennosides 8.6 Mg Tablet) 17.2 mg PO BEDTIME PRN PRN Reason: Constipation Sodium Chloride (0.9 % Sodium Chloride Flush 3 Ml Syringe) 3 ml IVFLUSH QSHIFT [facility] Last Admin: 08/28/21 09:00 Dose: 3 ml Documented by: Trazodone HCl (Trazodone Hcl 100 Mg Tablet) 100 mg PO BEDTIME [facility] Home Medications Medication Instructions Recorded Confirmed Last Taken Type furosemide 40 mg tablet 20 mg PO DAILY@1200 08/27/21 08/27/21 08/27/21 History furosemide 40 mg tablet (Lasix) 40 mg PO DAILY 08/27/21 08/27/21 08/27/21 History hydroxyzine HCl 10 mg tablet 10 mg PO BID@0700,1200 PRN 08/27/21 08/27/21 08/27/21 History nystatin 100,000 unit/gram topical 1 appl TOPICAL TID 08/27/21 08/27/21 08/27/21 History ointment nystatin 100,000 unit/gram topical 1 appl TOPICAL BID 08/27/21 08/27/21 08/27/21 History powder (Nystop) Physical Exam Vital Signs: Vital Signs: Last Vital Signs Temp 98.4 F 08/27/21 16:59 Pulse 81 08/28/21 13:05 Resp 22 H 08/28/21 09:48 BP 150/109 H 08/28/21 09:48 Pulse Ox 96 08/28/21 09:48 BMI result Body Mass Index 26.2 GENERAL APPEARANCE: in no acute distress, pleasant. NECK: no carotid bruit, no jugular venous distention. SKIN: no suspicious lesions, warm and dry. HEART: no murmurs, irregular rate and rhythm. LUNGS: clear to auscultation bilaterally. ABDOMEN: soft, nontender. EXTREMITIES: no edema. PERIPHERAL PULSES: equal. 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 AAO X 3 Objective Labs and Meds Result diagrams: 08/28/21 07:11 08/28/21 07:11 Lab results: Laboratory Results - last 24 hr 08/27/21 08/27/21 08/27/21 17:21 17:21 18:48 WBC 7.1 RBC 4.10 L Hgb 12.2 Hct 37.8 MCV 92.2 MCH 29.8 MCHC 32.3 RDW 15.7 Plt Count 216 MPV 9.8 Immature Gran % (Auto) 0.4 Neut % (Auto) 72.2 Lymph % (Auto) 19.9 L [place] % (Auto) 7.1 Eos % (Auto) 0.3 Baso % (Auto) 0.1 Lymph # (Auto) 1.4 [place] # (Auto) 0.5 Eos # (Auto) 0.0 Baso # (Auto) 0.0 Abs Immat Gran (auto) 0.03 Absolute Neuts (auto) 5.1 Absolute Nucleated RBC 0.000 Nucleated RBC % (auto) 0.0 PT 13.8 H INR 1.2 H APTT 33.9 Sodium 140 Potassium 4.4 Chloride 101 Carbon Dioxide 26 Anion Gap 17 BUN 39 H D Creatinine 2.41 H Estim Creat Clear Calc 13.3 Estimated GFR 19 Random Glucose 127 H Lactic Acid Calcium 8.8 Magnesium 2.4 Troponin I High Sens B-Natriuretic Peptide TSH 3.12 Urine Color Urine Appearance Urine pH Ur Specific [place] Urine Protein Urine Glucose (UA) Urine Ketones Urine Blood Urine Nitrite Ur Leukocyte Esterase Urine RBC Urine WBC Ur Squamous Epith Cells Triple Phos Crystals Urine Bacteria COVID-19 ([place]) COVID-19 Clin Com 08/27/21 08/27/21 08/27/21 18:48 18:48 18:48 WBC RBC Hgb Hct MCV MCH MCHC RDW Plt Count MPV Immature Gran % (Auto) Neut % (Auto) Lymph % (Auto) [place] % (Auto) Eos % (Auto) Baso % (Auto) Lymph # (Auto) [place] # (Auto) Eos # (Auto) Baso # (Auto) Abs Immat Gran (auto) Absolute Neuts (auto) Absolute Nucleated RBC Nucleated RBC % (auto) PT INR APTT Sodium Potassium Chloride Carbon Dioxide Anion Gap BUN Creatinine Estim Creat Clear Calc Estimated GFR Random Glucose Lactic Acid Calcium Magnesium Troponin I High Sens 22.5 H B-Natriuretic Peptide 2507 H TSH Urine Color Urine Appearance Urine pH Ur Specific [place] Urine Protein Urine Glucose (UA) Urine Ketones Urine Blood Urine Nitrite Ur Leukocyte Esterase Urine RBC Urine WBC Ur Squamous Epith Cells Triple Phos Crystals Urine Bacteria COVID-19 ([place]) Negative COVID-19 Clin Com See Note 08/27/21 08/27/21 08/28/21 21:50 22:37 07:11 WBC 6.1 RBC 4.09 L Hgb 12.1 Hct 37.3 MCV 91.2 MCH 29.6 MCHC 32.4 RDW 15.6 Plt Count 218 MPV 9.9 Immature Gran % (Auto) 0.2 Neut % (Auto) 70.0 Lymph % (Auto) 21.6 [place] % (Auto) 7.0 Eos % (Auto) 1.0 Baso % (Auto) 0.2 Lymph # (Auto) 1.3 [place] # (Auto) 0.4 Eos # (Auto) 0.1 Baso # (Auto) 0.0 Abs Immat Gran (auto) 0.01 Absolute Neuts (auto) 4.3 Absolute Nucleated RBC 0.000 Nucleated RBC % (auto) 0.0 PT INR APTT Sodium Potassium Chloride Carbon Dioxide Anion Gap BUN Creatinine Estim Creat Clear Calc Estimated GFR Random Glucose Lactic Acid 1.5 Calcium Magnesium Troponin I High Sens B-Natriuretic Peptide TSH Urine Color YELLOW Urine Appearance HAZY Urine pH 8.5 H Ur Specific [place] 1.015 Urine Protein 2+ H Urine Glucose (UA) NEG Urine Ketones NEG Urine Blood 2+ H Urine Nitrite NEG Ur Leukocyte Esterase 2+ H Urine RBC 5-9 H Urine WBC 30-49 H Ur Squamous Epith Cells TRACE Triple Phos Crystals TRACE Urine Bacteria 4+ COVID-19 ([place]) COVID-19 Clin Com 08/28/21 07:11 WBC RBC Hgb Hct MCV MCH MCHC RDW Plt Count MPV Immature Gran % (Auto) Neut % (Auto) Lymph % (Auto) [place] % (Auto) Eos % (Auto) Baso % (Auto) Lymph # (Auto) [place] # (Auto) Eos # (Auto) Baso # (Auto) Abs Immat Gran (auto) Absolute Neuts (auto) Absolute Nucleated RBC Nucleated RBC % (auto) PT INR APTT Sodium 141 Potassium 3.8 Chloride 103 Carbon Dioxide 26 Anion Gap 16 BUN 39 H Creatinine 2.11 H Estim Creat Clear Calc 15.2 Estimated GFR 22 Random Glucose 93 Lactic Acid Calcium 8.6 Magnesium Troponin I High Sens B-Natriuretic Peptide TSH Urine Color Urine Appearance Urine pH Ur Specific [place] Urine Protein Urine Glucose (UA) Urine Ketones Urine Blood Urine Nitrite Ur Leukocyte Esterase Urine RBC Urine WBC Ur Squamous Epith Cells Triple Phos Crystals Urine Bacteria COVID-19 ([place]) COVID-19 Clin Com Imaging Radiologist's impression: Impressions Chest X-Ray 08/27/21 19:45 IMPRESSION: Although there are chronic appearing changes present there is central vascular prominence and indistinctness to the vessels suggesting mild superimposed pulmonary edema. Assessment and Plan (1) Paroxysmal atrial fibrillation: Status: Acute Plan 86-year-old presenting for change in mental status and atrial fibrillation. Rate control is good with Cardizem drip. Can be changed to oral Cardizem. Was started on Cardizem 120 mg long-acting form. Cannot get anticoagulation due to previous bleeding. We will follow along with you. Thank you for allowing me to participate in the care of your patient. Please feel free to contact me if you have any questions. Procedures Date of Service Date of Service: 08/28/21
--- NOTE | 2021-08-28 15:42 | PC.NURSE ---
Drip turned off at this time per cardiology orders. Hr in 90s a-fib/flutter on monitor.
--- NOTE | 2021-08-28 16:20 | HO.PM.IMPN ---
Subjective Subjective Date of Service: 08/28/21 Interval History: No acute issues overnight. Voices no complaints Review of Systems Denies chest pain Denies shortness of breath Denies nausea vomiting diarrhea Denies fever chills Physical Exam Vital Signs: Vital Signs: Last Vital Signs Temp 97.9 F 08/28/21 16:06 Pulse 110 H 08/28/21 16:06 Resp 20 08/28/21 16:06 BP 117/76 08/28/21 16:06 Pulse Ox 95 08/28/21 16:06 BMI result Body Mass Index 26.2 Const: Other: Awake alert oriented x2 no acute distress Resp: Other: Clear to auscultation bilaterally no rales rhonchi wheezes Cardio: Other: No S4; positive S1-S2; no S3 murmurs or gallops GI: Other: Soft nontender nondistended with normoactive bowel sounds Neuro: Other: Cranial nerves 2-12 grossly intact as tested. Motor is 5/5 all extremities sensation intact. Cognition improves per family Extrem: Other: No edema bilaterally Objective Data Active Medications Acetaminophen (Acetaminophen 325 Mg Tablet) 650 mg PO Q6H PRN PRN Reason: Pain, Mild (Pain Scale 1-3) Benzonatate (Benzonatate 100 Mg Capsule) 100 mg PO TID PRN PRN Reason: Cough Furosemide (Furosemide 20 Mg Tablet) 20 mg PO DAILY@1200 [facility]; Protocol Last Admin: 08/28/21 12:45 Dose: 20 mg Documented by: MARISSA Furosemide (Furosemide 40 Mg Tablet) 40 mg PO DAILY [facility]; Protocol Last Admin: 08/28/21 09:00 Dose: 40 mg Documented by: KOBI Heparin Sodium (Porcine) (Heparin Sodium,Porcine 5,000 Unit/Ml Vial) 5,000 unit SUBCUT 0900,2100 [facility] Last Admin: 08/28/21 09:00 Dose: 5,000 unit Documented by: KOBI Hydroxyzine HCl (Hydroxyzine Hcl 10 Mg Tablet) 10 mg PO BID@0700,1200 PRN PRN Reason: anxiety Diltiazem HCl 125 mg/ Sodium (Chloride) 125 mls @ 0 mls/hr IVCONT .Q0M [facility]; Protocol Last Titration: 08/28/21 15:41 Dose: 0 mg/hr, 0 mls/hr Documented by: MARISSA Ceftriaxone Sodium 1 gm/ (Sodium Chloride) 50 mls @ 100 mls/hr IV Q24H [facility] Levothyroxine Sodium (Levothyroxine Sodium 75 Mcg Tablet) 75 mcg PO DAILY@0600 [facility] Last Admin: 08/28/21 06:28 Dose: 75 mcg Documented by: MOLLY Melatonin (Melatonin 3 Mg Tablet) 6 mg PO BEDTIME PRN PRN Reason: Insomnia Metoprolol Tartrate (Metoprolol Tartrate 25 Mg Tablet) 25 mg PO BID [facility]; Protocol Last Admin: 08/28/21 09:00 Dose: 25 mg Documented by: KOBI Metoprolol Tartrate (Metoprolol Tartrate 5 Mg/5 Ml Vial) 5 mg IVPUSH Q6H PRN PRN Reason: HR>125 Nystatin (Nystatin Ointment 15 Gm Tube) 1 appl TOPICAL TID [facility]; Protocol Last Admin: 08/28/21 16:10 Dose: 1 appl Documented by: MARISSA Nystatin (Nystatin Powder 15 Gm Bottle) 1 appl TOPICAL BID [facility]; Protocol Last Admin: 08/28/21 09:52 Dose: 1 appl Documented by: KOBI Pharmacy Consult (Consult Rx Perform Med Rec) 1 each MISCELLANE ONCE PRN PRN Reason: Consult order Senna (Sennosides 8.6 Mg Tablet) 17.2 mg PO BEDTIME PRN PRN Reason: Constipation Sodium Chloride (0.9 % Sodium Chloride Flush 3 Ml Syringe) 3 ml IVFLUSH QSHIFT [facility] Last Admin: 08/28/21 16:10 Dose: 3 ml Documented by: MARISSA Trazodone HCl (Trazodone Hcl 100 Mg Tablet) 100 mg PO BEDTIME [facility] Labs CBC & Chem 7: 08/28/21 07:11 08/28/21 07:11 Labs: Laboratory Results - last 24 hr 08/27/21 08/27/21 08/27/21 17:21 17:21 18:48 MCV 92.2 MCH 29.8 MCHC 32.3 RDW 15.7 Plt Count 216 MPV 9.8 Immature Gran % (Auto) 0.4 Neut % (Auto) 72.2 Lymph % (Auto) 19.9 L [place] % (Auto) 7.1 Eos % (Auto) 0.3 Baso % (Auto) 0.1 Lymph # (Auto) 1.4 [place] # (Auto) 0.5 Eos # (Auto) 0.0 Baso # (Auto) 0.0 Abs Immat Gran (auto) 0.03 Absolute Neuts (auto) 5.1 Absolute Nucleated RBC 0.000 Nucleated RBC % (auto) 0.0 PT 13.8 H INR 1.2 H APTT 33.9 Anion Gap 17 Estim Creat Clear Calc 13.3 Estimated GFR 19 Random Glucose 127 H Lactic Acid Calcium 8.8 Magnesium 2.4 Troponin I High Sens B-Natriuretic Peptide TSH 3.12 Urine Color Urine Appearance Urine pH Ur Specific [place] Urine Protein Urine Glucose (UA) Urine Ketones Urine Blood Urine Nitrite Ur Leukocyte Esterase Urine RBC Urine WBC Ur Squamous Epith Cells Triple Phos Crystals Urine Bacteria COVID-[place] ([place]) [employer] 08/27/21 08/27/21 08/27/21 18:48 18:48 18:48 MCV MCH MCHC RDW Plt Count MPV Immature Gran % (Auto) Neut % (Auto) Lymph % (Auto) [place] % (Auto) Eos % (Auto) Baso % (Auto) Lymph # (Auto) [place] # (Auto) Eos # (Auto) Baso # (Auto) Abs Immat Gran (auto) Absolute Neuts (auto) Absolute Nucleated RBC Nucleated RBC % (auto) PT INR APTT Anion Gap Estim Creat Clear Calc Estimated GFR Random Glucose Lactic Acid Calcium Magnesium Troponin I High Sens 22.5 H B-Natriuretic Peptide 2507 H TSH Urine Color Urine Appearance Urine pH Ur Specific [place] Urine Protein Urine Glucose (UA) Urine Ketones Urine Blood Urine Nitrite Ur Leukocyte Esterase Urine RBC Urine WBC Ur Squamous Epith Cells Triple Phos Crystals Urine Bacteria COVID-19 ([place]) Negative [employer] See Note 08/27/21 08/27/21 08/28/21 21:50 22:37 07:11 MCV 91.2 MCH 29.6 MCHC 32.4 RDW 15.6 Plt Count 218 MPV 9.9 Immature Gran % (Auto) 0.2 Neut % (Auto) 70.0 Lymph % (Auto) 21.6 [place] % (Auto) 7.0 Eos % (Auto) 1.0 Baso % (Auto) 0.2 Lymph # (Auto) 1.3 [place] # (Auto) 0.4 Eos # (Auto) 0.1 Baso # (Auto) 0.0 Abs Immat Gran (auto) 0.01 Absolute Neuts (auto) 4.3 Absolute Nucleated RBC 0.000 Nucleated RBC % (auto) 0.0 PT INR APTT Anion Gap Estim Creat Clear Calc Estimated GFR Random Glucose Lactic Acid 1.5 Calcium Magnesium Troponin I High Sens B-Natriuretic Peptide TSH Urine Color YELLOW Urine Appearance HAZY Urine pH 8.5 H Ur Specific [place] 1.015 Urine Protein 2+ H Urine Glucose (UA) NEG Urine Ketones NEG Urine Blood 2+ H Urine Nitrite NEG Ur Leukocyte Esterase 2+ H Urine RBC 5-9 H Urine WBC 30-49 H Ur Squamous Epith Cells TRACE Triple Phos Crystals TRACE Urine Bacteria 4+ COVID-19 ([place] COVID-19 [employer] 08/28/21 07:11 MCV MCH MCHC RDW Plt Count MPV Immature Gran % (Auto) Neut % (Auto) Lymph % (Auto) [place] % (Auto) Eos % (Auto) Baso % (Auto) Lymph # (Auto) [place] # (Auto) Eos # (Auto) Baso # (Auto) Abs Immat Gran (auto) Absolute Neuts (auto) Absolute Nucleated RBC Nucleated RBC % (auto) PT INR APTT Anion Gap 16 Estim Creat Clear Calc 15.2 Estimated GFR 22 Random Glucose 93 Lactic Acid Calcium 8.6 Magnesium Troponin I High Sens B-Natriuretic Peptide TSH Urine Color Urine Appearance Urine pH Ur Specific [place] Urine Protein Urine Glucose (UA) Urine Ketones Urine Blood Urine Nitrite Ur Leukocyte Esterase Urine RBC Urine WBC Ur Squamous Epith Cells Triple Phos Crystals Urine Bacteria COVID-19 ([place]) COVID-19 Clin Com Microbiology Microbiology Results: Microbiology 08/27/21 22:03 Urine Culture - Preliminary Urine Catheterized - [place] Catheter Culture too young to evaluate. Assessment and Plan (1) AMS (altered mental status): Status: Acute (2) JOVON (acute kidney injury): Status: Acute (3) Atrial flutter with rapid ventricular response: Status: Acute (4) CHF (congestive heart failure): Status: Acute Plan 86-year-old female with a past medical history of hypertension, hyperlipidemia, hypothyroidism, paroxysmal AFib, peripheral vascular disease, history of DVT, not on anticoagulation secondary to anemia/GI bleed; GERD, cognitive impairment, anxiety, history of cervical cancer, vitamin-D deficiency, osteoarthritis, degenerative spine disease presented to the hospital with a chief complaint of altered mental status. 1.Altered mental status(likely secondary to UTI) -continue ceftriaxone -adjust pending culture -cognition returning to normal secondary to family 2.AFib with RVR -acceptable control on current therapies -adjust as indicated 3.JOVON on CKD: -creatinine back to baseline -follow renals/divalents 4.Acute on chronic systolic CHF: -Echo: April 2021-EF 40-45%, [id number] aortic stenosis, moderately dilated left atrium -follow BNP in am -Cards consult DVT prophylaxis: [place] heparin Code status: DNR/DNI. Will require ongoing hospitalization for treatment of UTI given mental status changes pending urine culture. May require IV Lasix for treatment of CHF Quality Stroke Does the patient have a stroke diagnosis?: No VTE Prior VTE?: No VTE Risk Level:: Medical - moderate - high VTE Device Contraindication: Treatment Not Indicated VTE Drug Contraindication: N/A - Med Ordered
--- NOTE | 2021-08-28 16:38 | P.PNNP_ITS ---
Subjective Subjective Date of Service: 08/28/21 Interval history: seen and examined Physical Exam Vital Signs: Vital Signs: Last Vital Signs Temp 97.9 F 08/28/21 16:06 Pulse 110 H 08/28/21 16:06 Resp 20 08/28/21 16:06 BP 117/76 08/28/21 16:06 Pulse Ox 95 08/28/21 16:06 BMI result Body Mass Index 26.2 Objective Data Labs CBC & Chem 7: 08/28/21 07:11 08/28/21 07:11 Labs: Laboratory Results - last 24 hr 08/27/21 08/27/21 08/27/21 17:21 17:21 18:48 WBC 7.1 RBC 4.10 L Hgb 12.2 Hct 37.8 MCV 92.2 MCH 29.8 MCHC 32.3 RDW 15.7 Plt Count 216 MPV 9.8 Immature Gran % (Auto) 0.4 Neut % (Auto) 72.2 Lymph % (Auto) 19.9 L [place] % (Auto) 7.1 Eos % (Auto) 0.3 Baso % (Auto) 0.1 Lymph # (Auto) 1.4 [place] # (Auto) 0.5 Eos # (Auto) 0.0 Baso # (Auto) 0.0 Abs Immat Gran (auto) 0.03 Absolute Neuts (auto) 5.1 Absolute Nucleated RBC 0.000 Nucleated RBC % (auto) 0.0 PT 13.8 H INR 1.2 H APTT 33.9 Sodium 140 Potassium 4.4 Chloride 101 Carbon Dioxide 26 Anion Gap 17 BUN 39 H D Creatinine 2.41 H Estim Creat Clear Calc 13.3 Estimated GFR 19 Random Glucose 127 H Lactic Acid Calcium 8.8 Magnesium 2.4 Troponin I High Sens B-Natriuretic Peptide TSH 3.12 Urine Color Urine Appearance Urine pH Ur Specific [place] Urine Protein Urine Glucose (UA) Urine Ketones Urine Blood Urine Nitrite Ur Leukocyte Esterase Urine RBC Urine WBC Ur Squamous Epith Cells Triple Phos Crystals Urine Bacteria COVID-19 ([place]) COVID-19 Clin Com 08/27/21 08/27/21 08/27/21 18:48 18:48 18:48 WBC RBC Hgb Hct MCV MCH MCHC RDW Plt Count MPV Immature Gran % (Auto) Neut % (Auto) Lymph % (Auto) [place] % (Auto) Eos % (Auto) Baso % (Auto) Lymph # (Auto) [place] # (Auto) Eos # (Auto) Baso # (Auto) Abs Immat Gran (auto) Absolute Neuts (auto) Absolute Nucleated RBC Nucleated RBC % (auto) PT INR APTT Sodium Potassium Chloride Carbon Dioxide Anion Gap BUN Creatinine Estim Creat Clear Calc Estimated GFR Random Glucose Lactic Acid Calcium Magnesium Troponin I High Sens 22.5 H B-Natriuretic Peptide 2507 H TSH Urine Color Urine Appearance Urine pH Ur Specific [place] Urine Protein Urine Glucose (UA) Urine Ketones Urine Blood Urine Nitrite Ur Leukocyte Esterase Urine RBC Urine WBC Ur Squamous Epith Cells Triple Phos Crystals Urine Bacteria COVID-19 ([place]) Negative COVID-19 Clin Com See Note 08/27/21 08/27/21 08/28/21 21:50 22:37 07:11 WBC 6.1 RBC 4.09 L Hgb 12.1 Hct 37.3 MCV 91.2 MCH 29.6 MCHC 32.4 RDW 15.6 Plt Count 218 MPV 9.9 Immature Gran % (Auto) 0.2 Neut % (Auto) 70.0 Lymph % (Auto) 21.6 [place] % (Auto) 7.0 Eos % (Auto) 1.0 Baso % (Auto) 0.2 Lymph # (Auto) 1.3 [place] # (Auto) 0.4 Eos # (Auto) 0.1 Baso # (Auto) 0.0 Abs Immat Gran (auto) 0.01 Absolute Neuts (auto) 4.3 Absolute Nucleated RBC 0.000 Nucleated RBC % (auto) 0.0 PT INR APTT Sodium Potassium Chloride Carbon Dioxide Anion Gap BUN Creatinine Estim Creat Clear Calc Estimated GFR Random Glucose Lactic Acid 1.5 Calcium Magnesium Troponin I High Sens B-Natriuretic Peptide TSH Urine Color YELLOW Urine Appearance HAZY Urine pH 8.5 H Ur Specific [place] 1.015 Urine Protein 2+ H Urine Glucose (UA) NEG Urine Ketones NEG Urine Blood 2+ H Urine Nitrite NEG Ur Leukocyte Esterase 2+ H Urine RBC 5-9 H Urine WBC 30-49 H Ur Squamous Epith Cells TRACE Triple Phos Crystals TRACE Urine Bacteria 4+ COVID-19 ([place]) COVID-19 Clin Com 08/28/21 07:11 WBC RBC Hgb Hct MCV MCH MCHC RDW Plt Count MPV Immature Gran % (Auto) Neut % (Auto) Lymph % (Auto) [place] % (Auto) Eos % (Auto) Baso % (Auto) Lymph # (Auto) [place] # (Auto) Eos # (Auto) Baso # (Auto) Abs Immat Gran (auto) Absolute Neuts (auto) Absolute Nucleated RBC Nucleated RBC % (auto) PT INR APTT Sodium 141 Potassium 3.8 Chloride 103 Carbon Dioxide 26 Anion Gap 16 BUN 39 H Creatinine 2.11 H Estim Creat Clear Calc 15.2 Estimated GFR 22 Random Glucose 93 Lactic Acid Calcium 8.6 Magnesium Troponin I High Sens B-Natriuretic Peptide TSH Urine Color Urine Appearance Urine pH Ur Specific [place] Urine Protein Urine Glucose (UA) Urine Ketones Urine Blood Urine Nitrite Ur Leukocyte Esterase Urine RBC Urine WBC Ur Squamous Epith Cells Triple Phos Crystals Urine Bacteria COVID-19 ([place]) COVID-19 Clin Com Microbiology Microbiology Results: Microbiology 08/27/21 22:03 Urine Catheterized - Alt[place]irano Catheter Urine Culture - Preliminary Culture too young to evaluate. Procedures Date of Service Date of Service: 08/28/21 Assessment & Plan Assessment and plan (1) JOVON (acute kidney injury): Status: Acute (2) Heart failure with reduced ejection fraction: Status: Acute (3) CKD (chronic kidney disease) stage 3, GFR 30-59 ml/min: Status: Acute Plan JOVON due to decreased effective circulation known heart failure with reduced function LVEF 40-45% h/o CKD 3 baseline Scr ~ 1.5 mg/dl REC continue loop diuretics rate control follow kidney function and electrolytes Time Spent With Patient Time: Total time spent is greater than 50% in coordination of care (as documented) at patient's floor/unit and/or counseling patient: Progress Note: Quality Stroke Does the patient have a stroke diagnosis?: No
--- NOTE | 2021-08-28 18:38 | PC.NURSE ---
DElay in po cardizem as med not loaded in pyxis. Pharmacy aware. Awaiting delivery at this time.
[2021-08-28] MEDS: dilTIAZem HCL CD 120 MG CAP.ER.DEG PO (18:52)
--- NOTE | 2021-08-28 21:21 | PC.NURSE ---
Ava's blood pressure soft: 92/59 and heart rate elevated, 116 a fib. Hospitalist made aware, will hold Metoprolol 25 mg PO at this time and will give Trazodone 100 mg PO per verbal order. Will monitor patient closely.
[2021-08-28] MEDS: traZODone HCL 100 MG TABLET PO (21:23)
[2021-08-28] MEDS: cefTRIAXone sodium 1 GM in 0.9 % Sodium Chloride 50 ML IV (22:09)
--- NOTE | 2021-08-28 22:24 | PC.NURSE ---
Addendum entered by Myrna Yeung RN 08/28/21 22:52: 22:52 Medication given see MAR. Original Note: Patient's heart rate steady at 121, blood pressure 102/58. Hospitalist notified, awaiting new orders.
[2021-08-28] MEDS: Acetaminophen 325 MG TABLET 650 MG PO (22:53)
[2021-08-29] VITALS (7 sets, daily range): BP systolic 91–126; BP diastolic 54–78; PULSE 94–120; RESP 14–25; TEMP 36.6–37.1; O2SAT 94–100
--- NOTE | 2021-08-29 | ECG_ITS ---
Test Reason : A-FIB Blood Pressure : / mmHG Vent. Rate : 118 BPM Atrial Rate : 000 BPM P-R Int : 000 ms QRS Dur : 090 ms QT Int : 332 ms P-R-T Axes : 000 -29 148 degrees QTc Int : 465 ms Atrial flutter Left ventricular hypertrophy with repolarization abnormality ( R in aVL ) Abnormal ECG When compared with ECG of 27-AUG-2021 17:04, T wave inversion more evident in Lateral leads Referred By: Phillip Meadows Electronically Signed By:Abad Bishop
--- NOTE | 2021-08-29 02:00 | PC.NURSE ---
Patient confused, removed PIV. New PIV placed to right AC, #20g. Will monitor.
--- NOTE | 2021-08-29 02:23 | PC.NURSE ---
Patient's redding leaked onto bedpad. [place] checked for placement, draining noted to tube. Heart rate jumping between 110-120, blood pressure 94/58. Hospitalist updated on patient status.
[2021-08-29] MEDS: Levothyroxine Sodium 75 MCG TABLET PO (05:57)
--- NOTE | 2021-08-29 06:23 | PC.NURSE ---
[place] leaked onto bed pad, Hospitalist notified and redding replaced. Will monitor closely.
[2021-08-29 07:03] LABS: Basophils Percent Auto 0.1 % (0-2); Eosinophils Absolute Auto 0.1 X10*3/uL (0.0-0.4); Eosinophils Percent Auto 1.3 % (0-4); Hematocrit 36.4 % (37.0-47.0); Hemoglobin 11.8 g/dl (12.0-16.0); Imm Gran Abs Auto 0.02 X10*3/uL (0.00-0.03); Imm Gran Pct Auto 0.3 % (0.0-0.4); Lymphocytes Absolute Auto 2.1 X10*3/uL (1.2-4.9); Lymphocytes Percent Auto 28.5 % (20-40); MANUAL DIFF FLAG NO; Mean Corpuscular HGB Conc 32.4 g/dl (31.0-35.0); Mean Corpuscular Hemoglobin 29.6 pg (27.0-33.0); Mean Corpuscular Volume 91.2 fL (80.0-98.0); Mean Platelet Volume 9.8 fL (9.4-12.3); Monocytes Absolute Auto 0.5 X10*3/uL (0.1-1.2); Monocytes Percent Auto 7.2 % (2-11); Neutrophils Absolute Auto 4.5 x10*3/uL (2.0-8.3); Neutrophils Percent Auto 62.6 % (45-73); Platelet Count 223 X10*3/uL (160-400); Red Blood Count 3.99 X10*6/uL (4.20-5.50); Red Cell Distribution Width 15.6 % (11.0-16.0); White Blood Count 7.2 X10*3/uL (4.8-10.8)
[2021-08-29 07:26] LABS: Alanine Aminotransferase 15 U/L (0-31); Alkaline Phosphatase 87 U/L (39-117); Anion Gap 15 (12-20); Aspartate Amino Transferase 22 U/L (5-31); Bilirubin Total 0.7 mg/dL (0.0-1.0); Blood Urea Nitrogen 38 mg/dL (9-16); Calcium 8.5 mg/dL (8.4-10.2); Carbon Dioxide 27 mmol/L (22-29); Chloride 100 mmol/L (96-108); Creatinine Clr Calc Pharmacy 15.8; Estimated Glomerular Filt Rate 23; Glucose Fasting 91 mg/dL (60-99); Potassium 3.8 mmol/L (3.3-5.1); Sodium 138 mmol/L (135-145); Total Protein 6.6 g/dL (6.5-8.0)
[2021-08-29] MEDS: Furosemide 40 MG TABLET PO (07:59)
[2021-08-29] MEDS: Heparin Sodium,Porcine 5,000 UNIT/ML VIAL 5000 UNIT SUBCUT ×2 (07:59→20:58)
[2021-08-29] MEDS: Metoprolol Tartrate 25 MG TABLET PO ×2 (07:59→11:17)
[2021-08-29] MEDS: dilTIAZem HCL CD 120 MG CAP.ER.DEG PO (07:59)
[2021-08-29] MEDS: 0.9 % Sodium Chloride Flush 3 ML SYRINGE IVFLUSH ×3 (08:00→21:01)
--- NOTE | 2021-08-29 10:13 | P.CDIC_ITS ---
CDI Concurrent Query Documentation Clarification: PHYSICIAN'S DOCUMENTATION REQUEST Date of Query: 08/30/21 0838 Patient Name: Amrik Stephens Admit Date: 08/27/21 Dear Doctor, A review of the medical record indicates additional documentation may be needed. Please review below and update the documentation accordingly. Clinical Indicators: Risk Factors/Clinical Indicators/Treatments Ed: 5 - Dementia, cognitive impairment. PMH: Dementia Altered mental status, increasing confusion. Nursing notes 08/29 - confused, removed PIV, replaced. Based on the above, could you clarify in the Progress Notes which, if any of the following, is the most likely etiology of the confusion/altered mental status: * Dementia - indicate type of dementia, such as Alzheimer's, senile, vascular, Lewy body, etc. * Baseline dementia - indicate type, such as Alzheimer's, senile, vascular, Lewy body, etc., and any associated behavioral disturbances (aggressive, combative, or violent behavior) * Other etiology (please specify) * Unable to determine Use of terms such as suspected, likely, concern for, or probable (associated with a specific diagnosis that is being evaluated, monitored, or treated as if it exists) are acceptable and can be coded in the inpatient setting, when documented at the time of discharge. Thank you, Kimberly Cunningham [facility], CDIS Extension: [phone] Please use your independent medical judgment in providing your response. THIS QUERY IS PART OF THE PERMANENT MEDICAL RECORD Provider Response: Other Other Diagnosis: Unable to determine type of dementia based on this 1 admission
--- NOTE | 2021-08-29 10:35 | PC.NURSE ---
pt seen by dr. ly with behavioral specialist, pt aware of plan of care
[2021-08-29] MEDS: Acetaminophen 325 MG TABLET 650 MG PO ×2 (10:41→20:58)
--- NOTE | 2021-08-29 10:44 | P.PNCA_ITS ---
Subjective Subjective Date of Service: 08/29/21 Interval history: Patient seen and examined at bedside. Doing well and in good spirits. Continues to be in AFib with RVR. Physical Exam Vital Signs: Last Vital Signs Temp 98.3 F 08/29/21 10:29 Pulse 118 H 08/29/21 10:29 Resp 17 08/29/21 10:29 BP 103/69 08/29/21 10:29 Pulse Ox 94 08/29/21 10:29 BMI result Body Mass Index 26.2 GENERAL APPEARANCE: in no acute distress, pleasant. NECK: no carotid bruit, no jugular venous distention. SKIN: no suspicious lesions, warm and dry. HEART: no murmurs, irregular rate and rhythm. LUNGS: clear to auscultation bilaterally. ABDOMEN: soft, nontender. EXTREMITIES: no edema. PERIPHERAL PULSES: equal. NEUROLOGIC:? 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 AAO X 3 Objective Labs and Meds Result diagrams: 08/29/21 06:39 08/29/21 06:39 Lab results: Laboratory Results - last 24 hr 08/29/21 08/29/21 06:39 06:39 WBC 7.2 RBC 3.99 L Hgb 11.8 L Hct 36.4 L MCV 91.2 MCH 29.6 MCHC 32.4 RDW 15.6 Plt Count 223 MPV 9.8 Immature Gran % (Auto) 0.3 Neut % (Auto) 62.6 Lymph % (Auto) 28.5 [place] % (Auto) 7.2 Eos % (Auto) 1.3 Baso % (Auto) 0.1 Lymph # (Auto) 2.1 [place] # (Auto) 0.5 Eos # (Auto) 0.1 Baso # (Auto) 0.0 Abs Immat Gran (auto) 0.02 Absolute Neuts (auto) 4.5 Absolute Nucleated RBC 0.000 Nucleated RBC % (auto) 0.0 Sodium 138 Potassium 3.8 Chloride 100 Carbon Dioxide 27 Anion Gap 15 BUN 38 H Creatinine 2.03 H Estim Creat Clear Calc 15.8 Estimated GFR 23 Fasting Glucose 91 Calcium 8.5 Total Bilirubin 0.7 AST 22 ALT 15 Alkaline Phosphatase 87 Total Protein 6.6 Albumin 3.0 L Progress Note: A&P Assessment and plan (1) Atrial flutter with rapid ventricular response: Status: Acute Plan 86-year-old female with atrial flutter. She is presenting with confusion secondary to medications. Overall clinically stable. Heart rate is still fast. She is on Cardizem 120 mg once a day. Increasing the metoprolol to 50 mg twice a day. No anticoagulation as per daughter because of his bleeding issues. Thank you for allowing me to participate in the care of your patient. Please feel free to contact me if you have any questions. Time Spent With Patient Time: Total time spent is greater than 50% in coordination of care (as documented) at patient's floor/unit and/or counseling patient: Progress Note: Quality Stroke Does the patient have a stroke diagnosis?: No Procedures Date of Service Date of Service: 08/29/21
--- NOTE | 2021-08-29 11:18 | P.PNNP_ITS ---
Subjective Subjective Date of Service: 08/29/21 Interval history: seen and examined feels better Physical Exam Vital Signs: Vital Signs: Last Vital Signs Temp 98.3 F 08/29/21 10:29 Pulse 118 H 08/29/21 10:29 Resp 17 08/29/21 10:29 BP 103/69 08/29/21 10:29 Pulse Ox 94 08/29/21 10:29 BMI result Body Mass Index 26.2 Const: General: no acute distress HEENT: Head: Yes normocephalic and Yes atraumatic Neck: Neck: Yes supple Resp: Auscultation: diminished lung sounds Cardio: Heart sounds: S1 normal heart sound present and S2 normal heart sound present GI: Palpation (GI): Soft to palpation and nontender Extrem: General: Yes edema Objective Data Labs CBC & Chem 7: 08/29/21 06:39 08/29/21 06:39 Labs: Laboratory Results - last 24 hr 08/29/21 08/29/21 06:39 06:39 WBC 7.2 RBC 3.99 L Hgb 11.8 L Hct 36.4 L MCV 91.2 MCH 29.6 MCHC 32.4 RDW 15.6 Plt Count 223 MPV 9.8 Immature Gran % (Auto) 0.3 Neut % (Auto) 62.6 Lymph % (Auto) 28.5 [place] % (Auto) 7.2 Eos % (Auto) 1.3 Baso % (Auto) 0.1 Lymph # (Auto) 2.1 [place] # (Auto) 0.5 Eos # (Auto) 0.1 Baso # (Auto) 0.0 Abs Immat Gran (auto) 0.02 Absolute Neuts (auto) 4.5 Absolute Nucleated RBC 0.000 Nucleated RBC % (auto) 0.0 Sodium 138 Potassium 3.8 Chloride 100 Carbon Dioxide 27 Anion Gap 15 BUN 38 H Creatinine 2.03 H Estim Creat Clear Calc 15.8 Estimated GFR 23 Fasting Glucose 91 Calcium 8.5 Total Bilirubin 0.7 AST 22 ALT 15 Alkaline Phosphatase 87 Total Protein 6.6 Albumin 3.0 L Microbiology Microbiology Results: Microbiology 08/27/21 22:40 Blood - Venous Blood Culture - Preliminary No growth after 24 hours. 08/27/21 22:36 Blood - Venous Blood Culture - Preliminary No growth after 24 hours. 08/27/21 22:03 Urine Catheterized - Altamirano Catheter Urine Culture - Preliminary Culture too young to evaluate. Procedures Date of Service Date of Service: 08/29/21 Assessment & Plan Assessment and plan (1) JOVON (acute kidney injury): Status: Acute (2) Heart failure with reduced ejection fraction: Status: Acute (3) CKD (chronic kidney disease) stage 3, GFR 30-59 ml/min: Status: Acute Plan Scr marginally better JOVON due to decreased effective circulation known heart failure with reduced function LVEF 40-45% h/o CKD 3 baseline Scr ~ 1.5 mg/dl REC continue oral loop diuretics follow kidney function and electrolytes Time Spent With Patient Time: Total time spent is greater than 50% in coordination of care (as documented) at patient's floor/unit and/or counseling patient: Progress Note: Quality Stroke Does the patient have a stroke diagnosis?: No
[2021-08-29] MEDS: Furosemide 20 MG TABLET PO (11:42)
--- NOTE | 2021-08-29 11:45 | CONS_ITS ---
DATE OF SERVICE: 08/28/2021 HISTORY OF PRESENT ILLNESS: This is an 86-year-old patient with a history of chronic kidney disease, who presents to the hospital with altered mental status and was noted to have worsening kidney function. Apparently, the patient has not been doing well and was mildly agitated at the assisted. She was subsequently sent to the hospital for further evaluation. There is no report of fever or chills. No chest pain, nausea, vomiting, or diarrhea, but she is reported to have decreased oral intake. In the hospital, she was noted to have atrial fibrillation with rapid ventricular response and was started on diltiazem drip. PAST MEDICAL HISTORY: Remarkable for chronic kidney disease stage 3, congestive heart failure, hypertension, hypothyroidism, history of obstructive uropathy, arthritis, atrial fibrillation, peripheral vascular disease, GERD, cognitive impairment, cervical cancer, Ramos palsy. PAST SURGICAL HISTORY: Notable for bladder surgery, cholecystectomy, elbow surgery. MEDICATIONS: As an outpatient included nystatin, hydroxyzine, furosemide. ALLERGIES: SHE IS ALLERGIC TO ASPIRIN, HYDROCHLOROTHIAZIDE, GABAPENTIN, LISINOPRIL, AND AMLODIPINE. SOCIAL HISTORY: Does not smoke. FAMILY HISTORY: Negative for kidney disease. REVIEW OF SYSTEMS: 10-point review of system negative except for pertinent in History of Present Illness. PHYSICAL EXAMINATION: VITAL SIGNS: Blood pressure is 117/76, heart rate 110, respiratory rate 20, temperature 97.9. CONSTITUTIONAL: Looks staged age, in no acute distress. NEUROLOGIC: Alert, awake. HEAD: Atraumatic, normocephalic. NECK: Supple. LUNGS: Decreased breath sounds. CARDIOVASCULAR: S1, S2. Tachy. ABDOMEN: Soft, nontender. EXTREMITIES: Positive edema. LABORATORY DATA: Showed a white count 6.1, hemoglobin 12.1, platelet count of 218. Sodium 141, potassium 3.8, chloride 103, CO2 of 26, BUN 39, creatinine 2.1. IMPRESSION: 1. Acute kidney injury. 2. Heart failure with reduced ejection fraction. 3. Chronic kidney disease, stage 3. This patient with acute kidney injury due to decreased effective circulation in the setting of decompensated congestive heart failure and atrial fibrillation with rapid ventricular response. She is known to have heart failure with reduced ejection fraction with left ventricular ejection fraction in the range of 40% to 45%. The patient has underlying chronic kidney disease with baseline serum creatinine 1.5 mg/dL. I will continue with loop diuretics. The patient achieved rate control and continue to follow closely her kidney function and electrolytes. Thank you for allowing me to participate in the care of this patient. Jose Keane MD GF/MODL / [id number]
--- NOTE | 2021-08-29 15:50 | P.PNIM_ITS ---
Subjective Subjective Date of Service: 08/29/21 Interval History: No acute issues overnight. Voices no complaints Review of Systems Denies chest pain Denies shortness of breath Denies nausea vomiting diarrhea Denies fever chills Physical Exam Vital Signs: Vital Signs: Last Vital Signs Temp 98.3 F 08/29/21 10:29 Pulse 118 H 08/29/21 10:29 Resp 17 08/29/21 10:29 BP 103/69 08/29/21 10:29 Pulse Ox 94 08/29/21 10:29 BMI result Body Mass Index 26.2 Const: Other: Awake alert oriented x2 no acute distress Resp: Other: Clear to auscultation bilaterally no rales rhonchi wheezes Cardio: Other: No S4; positive S1-S2; no S3 murmurs or gallops GI: Other: Soft nontender nondistended with normoactive bowel sounds Neuro: Other: Cranial nerves 2-12 grossly intact as tested. Motor is 5/5 all extremities sensation intact. Cognition improves per family Extrem: Other: No edema bilaterally Objective Data Active Medications Acetaminophen (Acetaminophen 325 Mg Tablet) 650 mg PO Q6H PRN PRN Reason: Pain, Mild (Pain Scale 1-3) Last Admin: 08/29/21 10:41 Dose: 650 mg Documented by: RICK Benzonatate (Benzonatate 100 Mg Capsule) 100 mg PO TID PRN PRN Reason: Cough Diltiazem HCl (Diltiazem Hcl Cd 120 Mg Cap.Er.Deg) 120 mg PO DAILY [facility]; Protocol Last Admin: 08/29/21 07:59 Dose: 120 mg Documented by: ZAN Furosemide (Furosemide 20 Mg Tablet) 20 mg PO DAILY@1200 [facility]; Protocol Last Admin: 08/29/21 11:42 Dose: 20 mg Documented by: RICK Furosemide (Furosemide 40 Mg Tablet) 40 mg PO DAILY [facility]; Protocol Last Admin: 08/29/21 07:59 Dose: 40 mg Documented by: ZAN Heparin Sodium (Porcine) (Heparin Sodium,Porcine 5,000 Unit/Ml Vial) 5,000 unit SUBCUT 0900,2100 [facility] Last Admin: 08/29/21 07:59 Dose: 5,000 unit Documented by: ZAN Ceftriaxone Sodium 1 gm/ (Sodium Chloride) 50 mls @ 100 mls/hr IV Q24H [facility] Last Infusion: 08/28/21 23:03 Dose: 0 mls/hr Documented by: COLLETTE Levothyroxine Sodium (Levothyroxine Sodium 75 Mcg Tablet) 75 mcg PO DAILY@0600 [facility] Last Admin: 08/29/21 05:57 Dose: 75 mcg Documented by: COLLETTE Melatonin (Melatonin 3 Mg Tablet) 6 mg PO BEDTIME PRN PRN Reason: Insomnia Metoprolol Tartrate (Metoprolol Tartrate 50 Mg Tablet) 50 mg PO BID [facility]; Protocol Nystatin (Nystatin Ointment 15 Gm Tube) 1 appl TOPICAL TID [facility]; Protocol Last Admin: 08/29/21 08:00 Dose: Not Given Documented by: ZAN Non-Admin Reason: ordered from phar Nystatin (Nystatin Powder 15 Gm Bottle) 1 appl TOPICAL BID [facility]; Protocol Last Admin: 08/29/21 08:00 Dose: Not Given Documented by: ZAN Non-Admin Reason: ordered from pharm Pharmacy Consult (Consult Rx Perform Med Rec) 1 each MISCELLANE ONCE PRN PRN Reason: Consult order Senna (Sennosides 8.6 Mg Tablet) 17.2 mg PO BEDTIME PRN PRN Reason: Constipation Sodium Chloride (0.9 % Sodium Chloride Flush 3 Ml Syringe) 3 ml IVFLUSH QSHIFT [facility] Last Admin: 08/29/21 08:00 Dose: 3 ml Documented by: ZAN Trazodone HCl (Trazodone Hcl 100 Mg Tablet) 100 mg PO BEDTIME [facility] Last Admin: 08/28/21 21:23 Dose: 100 mg Documented by: COLLETTE Labs CBC & Chem 7: 08/29/21 06:39 08/29/21 06:39 Labs: Laboratory Results - last 24 hr 08/29/21 08/29/21 06:39 06:39 MCV 91.2 MCH 29.6 MCHC 32.4 RDW 15.6 Plt Count 223 MPV 9.8 Immature Gran % (Auto) 0.3 Neut % (Auto) 62.6 Lymph % (Auto) 28.5 [place] % (Auto) 7.2 Eos % (Auto) 1.3 Baso % (Auto) 0.1 Lymph # (Auto) 2.1 [place] # (Auto) 0.5 Eos # (Auto) 0.1 Baso # (Auto) 0.0 Abs Immat Gran (auto) 0.02 Absolute Neuts (auto) 4.5 Absolute Nucleated RBC 0.000 Nucleated RBC % (auto) 0.0 Anion Gap 15 Estim Creat Clear Calc 15.8 Estimated GFR 23 Fasting Glucose 91 Calcium 8.5 Total Bilirubin 0.7 AST 22 ALT 15 Alkaline Phosphatase 87 Total Protein 6.6 Albumin 3.0 L Microbiology Microbiology Results: Microbiology 08/27/21 22:03 Urine Culture - Preliminary Urine Catheterized - Altamirano Catheter Viridans streptococcus group Gram positive cocci 08/27/21 22:40 Blood Culture - Preliminary Blood - Venous No growth after 24 hours. 08/27/21 22:36 Blood Culture - Preliminary Blood - Venous No growth after 24 hours. Assessment and Plan (1) AMS (altered mental status): Status: Acute (2) Paroxysmal atrial fibrillation: Status: Acute (3) CKD (chronic kidney disease) stage 3, GFR 30-59 ml/min: Status: Acute Plan 86-year-old female with a past medical history of hypertension, hyperlipidemia, hypothyroidism, paroxysmal AFib, peripheral vascular disease, history of DVT, not on anticoagulation secondary to anemia/GI bleed; GERD, cognitive impairment, anxiety, history of cervical cancer, vitamin-D deficiency, osteoarthritis, degenerative spine disease presented to the hospital with a chief complaint of altered mental status. 1.Altered mental status(likely secondary to UTI) -continue ceftriaxone -adjust pending culture/SS -cognition returning to normal per family 2.AFib with RVR -acceptable control on current therapies -adjust as indicated 3.JOVON on CKD: -creatinine back to baseline -follow renals/divalents 4.Acute on chronic systolic CHF: -Echo: April 2021-EF 40-45%, [id number] aortic stenosis, moderately dilated left atrium -follow BNP in am DVT prophylaxis: SC heparin Code status: DNR/DNI. Will require ongoing hospitalization for treatment of UTI given mental status changes pending urine culture. Quality Stroke Does the patient have a stroke diagnosis?: No VTE Prior VTE?: No VTE Risk Level:: Medical - moderate - high VTE Device Contraindication: Treatment Not Indicated VTE Drug Contraindication: N/A - Med Ordered
[2021-08-29] MEDS: Nystatin Ointment 15 GM TUBE 1 APPL TOPICAL ×2 (19:05→20:59)
[2021-08-29] MEDS: Metoprolol Tartrate 50 MG TABLET PO (20:58)
[2021-08-29] MEDS: traZODone HCL 100 MG TABLET PO (20:58)
[2021-08-29] MEDS: Melatonin 3 MG TABLET 6 MG PO (20:58)
[2021-08-29] MEDS: cefTRIAXone sodium 1 GM in 0.9 % Sodium Chloride 50 ML IV (20:58)
[2021-08-29] MEDS: Nystatin Powder 15 GM BOTTLE 1 APPL TOPICAL (20:59)
[2021-08-30] VITALS (7 sets, daily range): BP systolic 100–138; BP diastolic 66–90; PULSE 114–122; RESP 17–27; TEMP 35.8–36.7; O2SAT 96–99
--- NOTE | 2021-08-30 02:11 | PC.NURSE ---
Patient noted at midnight rounds to have a small skin tear to her right wrist. Area cleaned and covered with bandage.
--- NOTE | 2021-08-30 05:49 | PC.NURSE ---
Patient's redding removed at 0545. DTV by 1145. [place] was leaking as well.
[2021-08-30] MEDS: Levothyroxine Sodium 75 MCG TABLET PO (05:54)
[2021-08-30] MEDS: Furosemide 40 MG TABLET PO (09:26)
[2021-08-30] MEDS: Metoprolol Tartrate 50 MG TABLET PO ×2 (09:26→20:19)
[2021-08-30] MEDS: dilTIAZem HCL CD 120 MG CAP.ER.DEG PO (09:26)
[2021-08-30] MEDS: Heparin Sodium,Porcine 5,000 UNIT/ML VIAL 5000 UNIT SUBCUT (09:26)
[2021-08-30] MEDS: 0.9 % Sodium Chloride Flush 3 ML SYRINGE IVFLUSH ×3 (09:32→23:16)
[2021-08-30 09:52] LABS: MANUAL DIFF FLAG NO
[2021-08-30 10:03] LABS: Eosinophils Absolute Auto 0.1 X10*3/uL (0.0-0.4); Hemoglobin 11.2 g/dl (12.0-16.0); Imm Gran Abs Auto 0.03 X10*3/uL (0.00-0.03); Imm Gran Pct Auto 0.4 % (0.0-0.4); Lymphocytes Percent Auto 14.8 % (20-40); Mean Corpuscular Hemoglobin 29.3 pg (27.0-33.0); Mean Corpuscular Volume 91.6 fL (80.0-98.0); Mean Platelet Volume 9.7 fL (9.4-12.3); Monocytes Absolute Auto 0.4 X10*3/uL (0.1-1.2); Monocytes Percent Auto 5.4 % (2-11); Neutrophils Absolute Auto 5.3 x10*3/uL (2.0-8.3); Neutrophils Percent Auto 78.4 % (45-73); Platelet Count 268 X10*3/uL (160-400); Red Blood Count 3.82 X10*6/uL (4.20-5.50); Red Cell Distribution Width 15.5 % (11.0-16.0); White Blood Count 6.7 X10*3/uL (4.8-10.8)
[2021-08-30 10:14] LABS: Alanine Aminotransferase 13 U/L (0-31); Albumin Level 3.3 g/dL (3.5-5.0); Alkaline Phosphatase 87 U/L (39-117); Anion Gap 15 (12-20); Aspartate Amino Transferase 19 U/L (5-31); Bilirubin Total 0.5 mg/dL (0.0-1.0); Blood Urea Nitrogen 38 mg/dL (9-16); Calcium 8.6 mg/dL (8.4-10.2); Carbon Dioxide 27 mmol/L (22-29); Chloride 100 mmol/L (96-108); Creatinine Clr Calc Pharmacy 14.7; Estimated Glomerular Filt Rate 21; Glucose Fasting 151 mg/dL (60-99); Potassium 3.6 mmol/L (3.3-5.1); Sodium 138 mmol/L (135-145); Total Protein 7.2 g/dL (6.5-8.0)
--- NOTE | 2021-08-30 11:27 | P.PNNP_ITS ---
Subjective Subjective Date of Service: 08/30/21 Interval history: seen and examined no complaints confused Physical Exam Vital Signs: Vital Signs: Last Vital Signs Temp 97.2 F 08/30/21 10:47 Pulse 117 H 08/30/21 10:47 Resp 20 08/30/21 10:47 BP 112/78 08/30/21 10:47 Pulse Ox 96 08/30/21 10:47 BMI result Body Mass Index 26.2 Const: General: no acute distress HEENT: Head: Yes normocephalic and Yes atraumatic Neck: Neck: Yes supple Resp: Auscultation: diminished lung sounds Cardio: Heart sounds: S1 normal heart sound present and S2 normal heart sound present GI: Palpation (GI): Soft to palpation and nontender Extrem: General: Yes edema Objective Data Labs CBC & Chem 7: 08/30/21 09:48 08/30/21 09:48 Labs: Laboratory Results - last 24 hr 08/30/21 08/30/21 09:48 09:48 WBC 6.7 RBC 3.82 L Hgb 11.2 L Hct 35.0 L MCV 91.6 MCH 29.3 MCHC 32.0 RDW 15.5 Plt Count 268 MPV 9.7 Immature Gran % (Auto) 0.4 Neut % (Auto) 78.4 H Lymph % (Auto) 14.8 L [place] % (Auto) 5.4 Eos % (Auto) 1.0 Baso % (Auto) 0.0 Lymph # (Auto) 1.0 L [place] # (Auto) 0.4 Eos # (Auto) 0.1 Baso # (Auto) 0.0 Abs Immat Gran (auto) 0.03 Absolute Neuts (auto) 5.3 Absolute Nucleated RBC 0.000 Nucleated RBC % (auto) 0.0 Sodium 138 Potassium 3.6 Chloride 100 Carbon Dioxide 27 Anion Gap 15 BUN 38 H Creatinine 2.18 H Estim Creat Clear Calc 14.7 Estimated GFR 21 Fasting Glucose 151 H Calcium 8.6 Total Bilirubin 0.5 AST 19 ALT 13 Alkaline Phosphatase 87 Total Protein 7.2 Albumin 3.3 L Microbiology Microbiology Results: Microbiology 08/27/21 22:03 Urine Catheterized - [place] Catheter Urine Culture - Preliminary Viridans streptococcus group Gram positive cocci 08/27/21 22:40 Blood - Venous Blood Culture - Preliminary No growth after 48 hours. 08/27/21 22:36 Blood - Venous Blood Culture - Preliminary No growth after 48 hours. Procedures Date of Service Date of Service: 08/30/21 Assessment & Plan Assessment and plan (1) JOVON (acute kidney injury): Status: Acute (2) Heart failure with reduced ejection fraction: Status: Acute (3) CKD (chronic kidney disease) stage 3, GFR 30-59 ml/min: Status: Acute Plan Scr stable but remains above baseline JOVON due to decreased effective circulation known heart failure with reduced function LVEF 40-45% h/o CKD 3 baseline Scr ~ 1.5 mg/dl REC continue oral loop diuretics follow kidney function and electrolytes Time Spent With Patient Time: Total time spent is greater than 50% in coordination of care (as documented) at patient's floor/unit and/or counseling patient: Progress Note: Quality Stroke Does the patient have a stroke diagnosis?: No
[2021-08-30] MEDS: Nystatin Powder 15 GM BOTTLE 1 APPL TOPICAL (12:09)
[2021-08-30] MEDS: Nystatin Ointment 15 GM TUBE 1 APPL TOPICAL (12:09)
[2021-08-30] MEDS: Furosemide 20 MG TABLET PO (12:09)
--- NOTE | 2021-08-30 13:14 | HO.PM.IMPN ---
Subjective Subjective Date of Service: 08/30/21 Interval History: No acute issues overnight. Remains pleasantly confused Review of Systems Denies chest pain Denies shortness of breath Denies nausea vomiting diarrhea Denies fever chills Physical Exam Vital Signs: Vital Signs: Last Vital Signs Temp 97.2 F 08/30/21 10:47 Pulse 117 H 08/30/21 10:47 Resp 20 08/30/21 10:47 BP 112/78 08/30/21 10:47 Pulse Ox 96 08/30/21 10:47 BMI result Body Mass Index 26.2 Const: Other: Awake alert oriented x2 no acute distress Resp: Other: Clear to auscultation bilaterally no rales rhonchi wheezes Cardio: Other: No S4; positive S1-S2; no S3 murmurs or gallops GI: Other: Soft nontender nondistended with normoactive bowel sounds Neuro: Other: Cranial nerves 2-12 grossly intact as tested. Motor is 5/5 all extremities sensation intact. Cognition improves per family Extrem: Other: No edema bilaterally Objective Data Active Medications Acetaminophen (Acetaminophen 325 Mg Tablet) 650 mg PO Q6H PRN PRN Reason: Pain, Mild (Pain Scale 1-3) Last Admin: 08/29/21 20:58 Dose: 650 mg Documented by: GEN Benzonatate (Benzonatate 100 Mg Capsule) 100 mg PO TID PRN PRN Reason: Cough Diltiazem HCl (Diltiazem Hcl Cd 120 Mg Cap.Er.Deg) 120 mg PO DAILY [facility]; Protocol Last Admin: 08/30/21 09:26 Dose: 120 mg Documented by: ELENA Furosemide (Furosemide 20 Mg Tablet) 20 mg PO DAILY@1200 [facility]; Protocol Last Admin: 08/30/21 12:09 Dose: 20 mg Documented by: ELENA Furosemide (Furosemide 40 Mg Tablet) 40 mg PO DAILY [facility]; Protocol Last Admin: 08/30/21 09:26 Dose: 40 mg Documented by: ELENA Heparin Sodium (Porcine) (Heparin Sodium,Porcine 5,000 Unit/Ml Vial) 5,000 unit SUBCUT 0900,2100 [facility] Last Admin: 08/30/21 09:26 Dose: 5,000 unit Documented by: ELENA Ceftriaxone Sodium 1 gm/ (Sodium Chloride) 50 mls @ 100 mls/hr IV Q24H [facility] Last Infusion: 08/30/21 07:53 Dose: 0 mls/hr Documented by: ELENA Levothyroxine Sodium (Levothyroxine Sodium 75 Mcg Tablet) 75 mcg PO DAILY@0600 [facility] Last Admin: 08/30/21 05:54 Dose: 75 mcg Documented by: ROGERIO Melatonin (Melatonin 3 Mg Tablet) 6 mg PO BEDTIME PRN PRN Reason: Insomnia Last Admin: 08/29/21 20:58 Dose: 6 mg Documented by: GEN Metoprolol Tartrate (Metoprolol Tartrate 50 Mg Tablet) 50 mg PO BID [facility]; Protocol Last Admin: 08/30/21 09:26 Dose: 50 mg Documented by: ELENA Nystatin (Nystatin Ointment 15 Gm Tube) 1 appl TOPICAL TID [facility]; Protocol Last Admin: 08/30/21 12:09 Dose: 1 appl Documented by: ELENA Nystatin (Nystatin Powder 15 Gm Bottle) 1 appl TOPICAL BID [facility]; Protocol Last Admin: 08/30/21 12:09 Dose: 1 appl Documented by: ELENA Pharmacy Consult (Consult Rx Perform Med Rec) 1 each MISCELLANE ONCE PRN PRN Reason: Consult order Senna (Sennosides 8.6 Mg Tablet) 17.2 mg PO BEDTIME PRN PRN Reason: Constipation Sodium Chloride (0.9 % Sodium Chloride Flush 3 Ml Syringe) 3 ml IVFLUSH QSHIFT [facility] Last Admin: 08/30/21 09:32 Dose: 3 ml Documented by: ELENA Trazodone HCl (Trazodone Hcl 100 Mg Tablet) 100 mg PO BEDTIME [facility] Last Admin: 08/29/21 20:58 Dose: 100 mg Documented by: GEN Labs CBC & Chem 7: 08/30/21 09:48 08/30/21 09:48 Labs: Laboratory Results - last 24 hr 08/30/21 08/30/21 09:48 09:48 MCV 91.6 MCH 29.3 MCHC 32.0 RDW 15.5 Plt Count 268 MPV 9.7 Immature Gran % (Auto) 0.4 Neut % (Auto) 78.4 H Lymph % (Auto) 14.8 L [place] % (Auto) 5.4 Eos % (Auto) 1.0 Baso % (Auto) 0.0 Lymph # (Auto) 1.0 L [place] # (Auto) 0.4 Eos # (Auto) 0.1 Baso # (Auto) 0.0 Abs Immat Gran (auto) 0.03 Absolute Neuts (auto) 5.3 Absolute Nucleated RBC 0.000 Nucleated RBC % (auto) 0.0 Anion Gap 15 Estim Creat Clear Calc 14.7 Estimated GFR 21 Fasting Glucose 151 H Calcium 8.6 Total Bilirubin 0.5 AST 19 ALT 13 Alkaline Phosphatase 87 Total Protein 7.2 Albumin 3.3 L Microbiology Microbiology Results: Microbiology 08/27/21 22:03 Urine Culture - Preliminary Urine Catheterized - [place]ano Catheter Viridans streptococcus group Gram positive cocci 08/27/21 22:40 Blood Culture - Preliminary Blood - Venous No growth after 48 hours. 08/27/21 22:36 Blood Culture - Preliminary Blood - Venous No growth after 48 hours. Assessment and Plan (1) AMS (altered mental status): Status: Acute (2) UTI (urinary tract infection): Status: Acute (3) Paroxysmal atrial fibrillation: Status: Acute (4) JOVON (acute kidney injury): Status: Acute Plan 86-year-old female with a past medical history of hypertension, hyperlipidemia, hypothyroidism, paroxysmal AFib, peripheral vascular disease, history of DVT, not on anticoagulation secondary to anemia/GI bleed; GERD, cognitive impairment, anxiety, history of cervical cancer, vitamin-D deficiency, osteoarthritis, degenerative spine disease presented to the hospital with a chief complaint of altered mental status. 1.Altered mental status(likely secondary to UTI) -continue ceftriaxone(4) -cognition returning to normal ; more confused today 2.AFib with RVR -acceptable control on current therapies -adjust as indicated 3.JOVON on CKD: -creatinine back to baseline -follow renals/divalents 4.Acute on chronic systolic CHF: -Echo: April 2021-EF 40-45%, [id number] aortic stenosis, moderately dilated left atrium -follow BNP in am DVT prophylaxis: SC heparin Code status: DNR/DNI. Will require ongoing hospitalization for treatment of UTI given mental status changes pending urine culture. Quality Stroke Does the patient have a stroke diagnosis?: No VTE Prior VTE?: No VTE Risk Level:: Medical - moderate - high VTE Device Contraindication: Treatment Not Indicated VTE Drug Contraindication: N/A - Med Ordered
--- NOTE | 2021-08-30 16:14 | PM.PNCARD ---
Subjective Subjective Date of Service: 08/30/21 Principal diagnosis: Atrial flutter with rapid ventricular response, HFrEF Interval history: As per the daughter patient is very confused. She wants to go home. Her rate remains difficult control. No other cardiac symptoms. Clinically appears okay with no shortness of breath. Review of Systems Review of Systems Yes Unobtainable due to mental status Reports confusion Psychiatric: Reports confusion Physical Exam Vital Signs: Last Vital Signs Temp 97.8 F 08/30/21 15:34 Pulse 117 H 08/30/21 15:34 Resp 20 08/30/21 15:34 BP 130/90 H 08/30/21 15:34 Pulse Ox 98 08/30/21 15:34 BMI result Body Mass Index 26.2 Const General: cooperative, comfortable, no acute distress, alert, awake and confusion Nutritional Appearance: thin Orientation/consciousness: confusion Neck Neck: Yes trachea midline, Yes supple and Yes no JVD Resp Effort & Inspection: normal respiratory effort Auscultation: clear to auscultation bilaterally and diminished lung sounds Cardio Rate: tachycardic Rhythm: abnormal rhythm irregularly irregular Heart sounds: S1 normal heart sound present, S2 normal heart sound present, no click, no gallops, no murmurs and no rubs GI Auscultation: normal bowel sounds Skin General skin exam: no rashes or lesions noted and ecchymosis Neuro General: no focal motor deficits and confusion Extrem General: Yes no clubbing, cyanosis or edema Objective Labs and Meds Result diagrams: 08/30/21 09:48 08/30/21 09:48 Lab results: Laboratory Results - last 24 hr 08/30/21 08/30/21 09:48 09:48 WBC 6.7 RBC 3.82 L Hgb 11.2 L Hct 35.0 L MCV 91.6 MCH 29.3 MCHC 32.0 RDW 15.5 Plt Count 268 MPV 9.7 Immature Gran % (Auto) 0.4 Neut % (Auto) 78.4 H Lymph % (Auto) 14.8 L [place] % (Auto) 5.4 Eos % (Auto) 1.0 Baso % (Auto) 0.0 Lymph # (Auto) 1.0 L [place] # (Auto) 0.4 Eos # (Auto) 0.1 Baso # (Auto) 0.0 Abs Immat Gran (auto) 0.03 Absolute Neuts (auto) 5.3 Absolute Nucleated RBC 0.000 Nucleated RBC % (auto) 0.0 Sodium 138 Potassium 3.6 Chloride 100 Carbon Dioxide 27 Anion Gap 15 BUN 38 H Creatinine 2.18 H Estim Creat Clear Calc 14.7 Estimated GFR 21 Fasting Glucose 151 H Calcium 8.6 Total Bilirubin 0.5 AST 19 ALT 13 Alkaline Phosphatase 87 Total Protein 7.2 Albumin 3.3 L Progress Note: A&P Assessment and plan (1) Atrial flutter with rapid ventricular response: Status: Acute Assessment and Plan: Atrial flutter with rapid ventricular response which has been difficult control despite metoprolol and Cardizem therapy. Her given heart failure with reduced ejection fraction Cardizem therapy is not recommended. She also has limited options given her kidney function and cannot use digoxin. Therefore discussed with the daughter about the difficult clinical charges. Will start on amiodarone 200 mg b.i.d. for rate control. Discuss that there is a small chance that she could convert to sinus rhythm and not being on oral anticoagulation increase the risk for stroke. Daughter understands and is agreeable and understands that we need to maintain heart rate to prevent recurrent hospitalization related to heart failure and rapid heart rate. (2) Heart failure with reduced ejection fraction: Status: Acute Assessment and Plan: Heart failure with reduced ejection fraction with underlying atrial flutter with difficult control rate. Will control her rate as above. Discontinue Cardizem therapy. Continue the current diuretic regimen, clinically currently appears to be euvolemic and well compensated. She is at high risk for recurrent hospitalization with heart failure and has this syndrome similar to in the past where she was put on hospice therapy. Goals of therapy were discussed with the daughter in detail. Goals are to avoid hospitalization and improve her quality of life. She will do much better being at home rather in the hospital however cannot discharge her due to elevated heart rate. Daughter understands this. Will follow with her. Time Spent With Patient Time: Total time spent is greater than 50% in coordination of care (as documented) at patient's floor/unit and/or counseling patient: Progress Note: Quality Stroke Does the patient have a stroke diagnosis?: No Procedures Date of Service Date of Service: 08/30/21
[2021-08-30] MEDS: traZODone HCL 100 MG TABLET PO (20:18)
[2021-08-30] MEDS: cefTRIAXone sodium 1 GM in 0.9 % Sodium Chloride 50 ML IV (23:16)
--- NOTE | 2021-08-31 | ECG_ITS ---
Test Reason : cp Blood Pressure : / mmHG Vent. Rate : 113 BPM Atrial Rate : 113 BPM P-R Int : 136 ms QRS Dur : 090 ms QT Int : 378 ms P-R-T Axes : 000 -29 131 degrees QTc Int : 518 ms Atrial flutter/atrial tachycardia Nonspecific T wave abnormality Abnormal ECG When compared with ECG of 29-AUG-2021 20:40, Nonspecific T wave abnormality has replaced inverted T waves in Lateral leads Referred By: Phillip Meadows Electronically Signed By:LAURY CHRISTIANSON MD
[2021-08-31 04:00] VITALS: BP 109/71; PULSE 100; RESP 20; TEMP 36.7; O2SAT 97
[2021-08-31 07:09] LABS: MANUAL DIFF FLAG NO
[2021-08-31 07:13] LABS: Basophils Percent Auto 0.3 % (0-2); Eosinophils Absolute Auto 0.2 X10*3/uL (0.0-0.4); Eosinophils Percent Auto 2.4 % (0-4); Hematocrit 31.3 % (37.0-47.0); Hemoglobin 10.2 g/dl (12.0-16.0); Imm Gran Abs Auto 0.02 X10*3/uL (0.00-0.03); Imm Gran Pct Auto 0.3 % (0.0-0.4); Lymphocytes Absolute Auto 1.3 X10*3/uL (1.2-4.9); Lymphocytes Percent Auto 20.6 % (20-40); Mean Corpuscular HGB Conc 32.6 g/dl (31.0-35.0); Mean Corpuscular Hemoglobin 29.7 pg (27.0-33.0); Mean Corpuscular Volume 91.3 fL (80.0-98.0); Mean Platelet Volume 9.6 fL (9.4-12.3); Monocytes Absolute Auto 0.4 X10*3/uL (0.1-1.2); Monocytes Percent Auto 6.4 % (2-11); Neutrophils Absolute Auto 4.4 x10*3/uL (2.0-8.3); Platelet Count 233 X10*3/uL (160-400); Red Blood Count 3.43 X10*6/uL (4.20-5.50); Red Cell Distribution Width 15.4 % (11.0-16.0); White Blood Count 6.3 X10*3/uL (4.8-10.8)
[2021-08-31 07:35] LABS: B Type Natriuretic Peptide 991 pg/mL (<100)
[2021-08-31 07:37] LABS: Alanine Aminotransferase 12 U/L (0-31); Albumin Level 2.9 g/dL (3.5-5.0); Alkaline Phosphatase 77 U/L (39-117); Anion Gap 12 (12-20); Aspartate Amino Transferase 19 U/L (5-31); Bilirubin Total 0.3 mg/dL (0.0-1.0); Blood Urea Nitrogen 35 mg/dL (9-16); Calcium 8.4 mg/dL (8.4-10.2); Carbon Dioxide 28 mmol/L (22-29); Chloride 104 mmol/L (96-108); Creatinine Clr Calc Pharmacy 16.2; Estimated Glomerular Filt Rate 24; Glucose Fasting 97 mg/dL (60-99); Potassium 3.5 mmol/L (3.3-5.1); Sodium 140 mmol/L (135-145); Total Protein 6.3 g/dL (6.5-8.0)
[2021-08-31 07:54] VITALS: BP 100/72; PULSE 122; RESP 18; TEMP 36.3; O2SAT 97
[2021-08-31 10:16] VITALS: BP 108/80; PULSE 114
[2021-08-31] MEDS: 0.9 % Sodium Chloride Flush 3 ML SYRINGE IVFLUSH ×2 (10:17→15:06)
[2021-08-31] MEDS: Heparin Sodium,Porcine 5,000 UNIT/ML VIAL 5000 UNIT SUBCUT (10:18)
[2021-08-31] MEDS: Furosemide 40 MG TABLET PO (10:18)
[2021-08-31] MEDS: Nystatin Ointment 15 GM TUBE 1 APPL TOPICAL ×2 (10:19→15:06)
[2021-08-31] MEDS: Amiodarone HCL 200 MG TABLET PO ×2 (10:19→22:35)
[2021-08-31] MEDS: Nystatin Powder 15 GM BOTTLE 1 APPL TOPICAL (10:19)
[2021-08-31] MEDS: Metoprolol Tartrate 50 MG TABLET PO ×2 (10:19→22:35)
[2021-08-31] MEDS: Sennosides 8.6 MG TABLET 17.2 MG PO (11:16)
[2021-08-31] MEDS: Furosemide 20 MG TABLET PO (11:17)
[2021-08-31 11:53] VITALS: BP 113/80; PULSE 114; RESP 18; TEMP 36.8; O2SAT 97
--- NOTE | 2021-08-31 12:00 | P.PNCA_ITS ---
Subjective Subjective Date of Service: 08/31/21 Principal diagnosis: Atrial flutter with rapid ventricular response, HFrEF Interval history: Atrial flutter with persistent rapid rate. Patient refused to take her medications last night. Was given medicines this morning. Patient still remains confused and anxious. History was obtained with help of her daughter at bedside. Clearly no symptoms of palpitations or worsening shortness of breath at this time. Review of Systems Review of Systems Yes Unobtainable due to mental status Reports confusion Psychiatric: Reports confusion Physical Exam Vital Signs: Last Vital Signs Temp 98.2 F 08/31/21 11:53 Pulse 114 H 08/31/21 11:53 Resp 18 08/31/21 11:53 BP 113/80 08/31/21 11:53 Pulse Ox 97 08/31/21 11:53 BMI result Body Mass Index 26.2 Const General: cooperative, comfortable, no acute distress, alert, awake and confusion Nutritional Appearance: thin Orientation/consciousness: confusion Neck Neck: Yes trachea midline, Yes supple and Yes no JVD Resp Effort & Inspection: normal respiratory effort Auscultation: clear to auscultation bilaterally Cardio Jugular venous distension: no JVD Rate: tachycardic Rhythm: abnormal rhythm irregularly irregular Heart sounds: S1 normal heart sound present, S2 normal heart sound present, no click, no gallops and no murmurs Skin General skin exam: no rashes or lesions noted Neuro General: no focal motor deficits and confusion Extrem General: Yes no clubbing, cyanosis or edema Objective Labs and Meds Result diagrams: 08/31/21 06:46 08/31/21 06:45 Lab results: Laboratory Results - last 24 hr 08/31/21 08/31/21 08/31/21 06:45 06:46 06:46 WBC 6.3 RBC 3.43 L Hgb 10.2 L Hct 31.3 L MCV 91.3 MCH 29.7 MCHC 32.6 RDW 15.4 Plt Count 233 MPV 9.6 Immature Gran % (Auto) 0.3 Neut % (Auto) 70.0 Lymph % (Auto) 20.6 [place] % (Auto) 6.4 Eos % (Auto) 2.4 Baso % (Auto) 0.3 Lymph # (Auto) 1.3 [place] # (Auto) 0.4 Eos # (Auto) 0.2 Baso # (Auto) 0.0 Abs Immat Gran (auto) 0.02 Absolute Neuts (auto) 4.4 Absolute Nucleated RBC 0.000 Nucleated RBC % (auto) 0.0 Sodium 140 Potassium 3.5 Chloride 104 Carbon Dioxide 28 Anion Gap 12 BUN 35 H Creatinine 1.99 H Estim Creat Clear Calc 16.2 Estimated GFR 24 Fasting Glucose 97 Calcium 8.4 Total Bilirubin 0.3 AST 19 ALT 12 Alkaline Phosphatase 77 B-Natriuretic Peptide 991 H Total Protein 6.3 L Albumin 2.9 L Progress Note: A&P Assessment and plan (1) Atrial flutter with rapid ventricular response: Status: Acute Assessment and Plan: Atrial flutter with rapid ventricular response in this elderly woman is multifactorial. She has been refusing to take her medications at nighttime. She also enough for involvement of confusion agitation and anxiety which prob ably does not help her heart rate control situation. She also has limited options with medications with contraindication for Cardizem due to heart failure syndrome as well as digoxin due to elevated creatinine and her age. We started yesterday amiodarone but she did not take lost lines dose. She also did not take last night's metoprolol dose. This in combination with her anxiety does not help her rate control. I think will continue with metoprolol and amiodarone for rate control. This was discussed clearly with the daughter and she understands. Also she probably will benefit from a familiar environment at home. Daughter is willing to take her home as long as she is able to ambulate w ith physical therapy consultation. She is not on oral anticoagulant therapy due to significant GI bleeding. Risk of stroke associated with conversion to sinus rhythm with amiodarone therapy was discussed with her daughter and she understands. (2) Heart failure with reduced ejection fraction: Status: Acute Assessment and Plan: Heart failure with reduced ejection fraction, clinically euvolemic and well compensated current diuretic dose. Continue the same. Heart failure management was discussed with her daughter. She understands this well. Discharge can be performed if physical therapy clears her. Will follow-up as outpatient if they are willing to Time Spent With Patient Time: Total time spent is greater than 50% in coordination of care (as documented) at patient's floor/unit and/or counseling patient: Progress Note: Quality Stroke Does the patient have a stroke diagnosis?: No Procedures Date of Service Date of Service: 08/31/21
--- NOTE | 2021-08-31 12:05 | P.PNNP_ITS ---
Subjective Subjective Date of Service: 08/31/21 Principal diagnosis: Atrial flutter with rapid ventricular response, HFrEF Interval history: seen and examined daughter at bedside updated confused Physical Exam Vital Signs: Vital Signs: Last Vital Signs Temp 98.2 F 08/31/21 11:53 Pulse 114 H 08/31/21 11:53 Resp 18 08/31/21 11:53 BP 113/80 08/31/21 11:53 Pulse Ox 97 08/31/21 11:53 BMI result Body Mass Index 26.2 Const: General: no acute distress HEENT: Head: Yes normocephalic and Yes atraumatic Neck: Neck: Yes supple Resp: Auscultation: diminished lung sounds Cardio: Heart sounds: S1 normal heart sound present and S2 normal heart sound present GI: Palpation (GI): Soft to palpation and nontender Extrem: General: Yes edema Objective Data Labs CBC & Chem 7: 08/31/21 06:46 08/31/21 06:45 Labs: Laboratory Results - last 24 hr 08/31/21 08/31/21 08/31/21 06:45 06:46 06:46 WBC 6.3 RBC 3.43 L Hgb 10.2 L Hct 31.3 L MCV 91.3 MCH 29.7 MCHC 32.6 RDW 15.4 Plt Count 233 MPV 9.6 Immature Gran % (Auto) 0.3 Neut % (Auto) 70.0 Lymph % (Auto) 20.6 [place] % (Auto) 6.4 Eos % (Auto) 2.4 Baso % (Auto) 0.3 Lymph # (Auto) 1.3 [place] # (Auto) 0.4 Eos # (Auto) 0.2 Baso # (Auto) 0.0 Abs Immat Gran (auto) 0.02 Absolute Neuts (auto) 4.4 Absolute Nucleated RBC 0.000 Nucleated RBC % (auto) 0.0 Sodium 140 Potassium 3.5 Chloride 104 Carbon Dioxide 28 Anion Gap 12 BUN 35 H Creatinine 1.99 H Estim Creat Clear Calc 16.2 Estimated GFR 24 Fasting Glucose 97 Calcium 8.4 Total Bilirubin 0.3 AST 19 ALT 12 Alkaline Phosphatase 77 B-Natriuretic Peptide 991 H Total Protein 6.3 L Albumin 2.9 L Microbiology Microbiology Results: Microbiology 08/27/21 22:03 Urine Catheterized - [place] Catheter Urine Culture - Preliminary Viridans streptococcus group Enterococcus faecalis 08/27/21 22:40 Blood - Venous Blood Culture - Preliminary No growth after 48 hours. 08/27/21 22:36 Blood - Venous Blood Culture - Preliminary No growth after 48 hours. Procedures Date of Service Date of Service: 08/31/21 Assessment & Plan Assessment and plan (1) JOVON (acute kidney injury): Status: Acute (2) Heart failure with reduced ejection fraction: Status: Acute (3) CKD (chronic kidney disease) stage 3, GFR 30-59 ml/min: Status: Acute Plan Scr stable but above baseline JOVON due to decreased effective circulation known heart failure with reduced function LVEF 40-45% h/o CKD 3 baseline Scr ~ 1.5 mg/dl REC continue oral loop diuretics follow kidney function and electrolytes will arrange for outpatient follow up Time Spent With Patient Time: Total time spent is greater than 50% in coordination of care (as documented) at patient's floor/unit and/or counseling patient: Progress Note: Quality Stroke Does the patient have a stroke diagnosis?: No
[2021-08-31 13:16] VITALS: BP 113/80; PULSE 114; O2SAT 97
--- NOTE | 2021-08-31 14:42 | P.DS_ITS ---
DS: Providers Provider Date of Service: 08/31/21 Date of admission: 08/27/21 23:01 Date of discharge: 08/31/21 Primary care physician: Renu Simon MD Consults: 08/27/21 23:12 Consult to Cardiology Routine Consulting Provider: Abad Bishop Reason for consultation: AFib with RVR/CHF Consult to Nephrology Routine Consulting Provider: Desean Clayton Reason for consultation: JOVON on CKD DS: Diagnosis Discharge Diagnosis (1) JOVON (acute kidney injury): Status: Acute (2) Heart failure with reduced ejection fraction: Status: Acute (3) CKD (chronic kidney disease) stage 3, GFR 30-59 ml/min: Status: Acute DS: Summary Hospital Course Hospital Course: 86-year-old female with a past medical history of hypertension, hyperlipidemia, hypothyroidism, paroxysmal AFib, peripheral vascular disease, history of DVT, not on anticoagulation secondary to anemia/GI bleed; GERD, cognitive impairment, anxiety, history of cervical cancer, vitamin-D deficiency, osteoarthritis, degenerative spine disease presented to the hospital with a chief complaint of altered mental status.? Spoke to the patient other bedside who mentioned that patient has been not doing well since last Friday; patient was mildly agitated the fpc and has been heating the Colace; taken to the PCP on who has given her hydroxyzine and followed by patient has been mostly sleepy; not herself; and today she did not eat anything; given above concerns patient was sent to the hospital for further evaluation.? Also reports that she has increased leg swelling.? Patient daughter mentioned that patient is not on any anticoagulation given concerns for anemia/bleeding in the past.? Denies any fevers and chills. Hospital course Patient was admitted to telemetry and started on empiric ceftriaxone. Her mental status improved after 48 hours but not back to baseline. She was agitated at times making control of her ventricular response difficult. She was seen by Dr. Johnnie Ramirez limited echo was done. The decision was made to start low- dose amiodarone as Cardizem was ineffective. Discussion was undertaken with daughter and all in agreement it would be best if patient taken home as her agitation does not help her heart rate. She was screen by Physical therapy and deemed appropriate for home. Daughter is anxious to get her home and back to her routine. She will continue on amiodarone 200 mg b.i.d. until seen by Dr. Blair Time Spent with Patient Time attestation: Total time spent providing and/or coordinating discharge services: Discharge coordination time: Greater than 30 minutes Quality: Safe Use of Opioids Does Pt have an Active Cancer Diagnosis on the Problem List?: No Quality: Stroke Does the patient have a stroke diagnosis?: No Physical Exam Vital Signs: Vital Signs: Last Vital Signs Temp 98.2 F 08/31/21 11:53 Pulse 114 H 08/31/21 13:16 Resp 18 08/31/21 11:53 BP 113/80 08/31/21 13:16 Pulse Ox 97 08/31/21 13:16 BMI result Body Mass Index 26.2 Const: Other: Awake alert oriented x2 no acute distress Resp: Other: Clear to auscultation bilaterally no rales rhonchi wheezes Cardio: Other: No S4; positive S1-S2; no S3 murmurs or gallops GI: Other: Soft nontender nondistended with normoactive bowel sounds Neuro: Other: Cranial nerves 2-12 grossly intact as tested. Motor is 5/5 all extremities sensation intact. Cognition improves per family Extrem: Other: No edema bilaterally DS: Data Data Completed and Pending Completed studies during hospitalization [Text1]: Procedures Dilation of Left Ureter with Intraluminal Device, Via Natural or Artificial Opening Endoscopic (05/19/20) Dilation of Right Ureter with Intraluminal Device, Via Natural or Artificial Opening Endoscopic (05/19/20) Removal of Intraluminal Device from Ureter, Via Natural or Artificial Opening Endoscopic (05/19/20) Latter Day of Cardiac Rhythm, Single (01/26/20) Transfusion of Nonautologous Red Blood Cells into Peripheral Vein, Percutaneous Approach (08/23/20) Labs on day of discharge: Laboratory Results - last 24 hr 08/31/21 08/31/21 08/31/21 06:45 06:46 06:46 WBC 6.3 RBC 3.43 L Hgb 10.2 L Hct 31.3 L MCV 91.3 MCH 29.7 MCHC 32.6 RDW 15.4 Plt Count 233 MPV 9.6 Immature Gran % (Auto) 0.3 Neut % (Auto) 70.0 Lymph % (Auto) 20.6 [place] % (Auto) 6.4 Eos % (Auto) 2.4 Baso % (Auto) 0.3 Lymph # (Auto) 1.3 [place] # (Auto) 0.4 Eos # (Auto) 0.2 Baso # (Auto) 0.0 Abs Immat Gran (auto) 0.02 Absolute Neuts (auto) 4.4 Absolute Nucleated RBC 0.000 Nucleated RBC % (auto) 0.0 Sodium 140 Potassium 3.5 Chloride 104 Carbon Dioxide 28 Anion Gap 12 BUN 35 H Creatinine 1.99 H Estim Creat Clear Calc 16.2 Estimated GFR 24 Fasting Glucose 97 Calcium 8.4 Total Bilirubin 0.3 AST 19 ALT 12 Alkaline Phosphatase 77 B-Natriuretic Peptide 991 H Total Protein 6.3 L Albumin 2.9 L Preliminary micro results at discharge 08/27/21 22:03 Urine Culture - Preliminary Urine Catheterized - Altamirano Catheter Viridans streptococcus group Enterococcus faecalis 08/27/21 22:40 Blood Culture - Preliminary Blood - Venous No growth after 48 hours. 08/27/21 22:36 Blood Culture - Preliminary Blood - Venous No growth after 48 hours. Discharge Plan Discharge Patient Disposition: Home, Self-Care Discharge Diagnosis: AMS Referrals: Renu Simon MD [Primary Care Provider] - 1 Week Discharge Medications: New quetiapine [Seroquel] 25 mg tablet 25 mg PO TID Qty: 90 0RF amiodarone 200 mg Tablet 200 mg PO BID Qty: 60 0RF Continued (DME) wheelchair See Rx Instructions .Route .MEDSUPPLY Qty: 1 0RF Rx Instructions: As directed (DME) pull ups medium See Rx Instructions .Route .MEDSUPPLY Qty: 180 11RF Rx Instructions: As directed trazodone 100 mg tablet 100 mg PO BEDTIME 30 Days Qty: 30 0RF metoprolol tartrate 25 mg tablet 25 mg PO BID 30 Days Qty: 180 0RF Protocol: Hold for SBP/HR < HOLD for SBP < : 90 HOLD for HR < : 60 levothyroxine 75 mcg tablet 75 mcg PO DAILY@0600 30 Days Qty: 30 2RF furosemide 40 mg Tablet 20 mg PO DAILY@1200 0RF nystatin 100,000 unit/gram ointment 1 appl topical TID 0RF nystatin [Nystop] 100,000 unit/gram powder 1 appl topical BID 0RF furosemide [Lasix] 40 mg tablet 40 mg PO DAILY 0RF Discontinued hydroxyzine HCl 10 mg tablet 10 mg PO BID@0700,1200 PRN (Reason: anxiety) 0RF Discharge Orders: Discharge Order (Routine); Ordered 08/31/21 Ordered By: Prashant Matthews Diet: advance to usual diet Activity on Discharge: As tolerated Stand Alone Forms: Patient Portal Discharge page Care Plan Goals: Complete course of Ceftin as ordered. Given given a prescription for Seroquel; 1/2 tab twice a day for 1-2 days as a trial. If ineffective can go to 1 tab twice a day. Follow-up with PCP Health Concerns: Maintain highest level of function Plan of Treatment: Resume care at home as previously done Assessment: See discharge summary
--- NOTE | 2021-08-31 15:46 | PC.NURSE ---
Addendum entered by Blanka Rivera RN 08/31/21 16:42: PATIENT REFUSING 1600 VITALS. MD NOTIFIED. Original Note: TELEPACK REMOVED FOR DISCHARGE. DISCHARGE CHANGED TO TOMORROW 09/01/21. TELEPACK CAN REMAIN OFF PER MD.
[2021-08-31 20:00] VITALS: BP 105/74; PULSE 111; RESP 18; TEMP 36.9; O2SAT 92
[2021-08-31] MEDS: traZODone HCL 100 MG TABLET PO (22:35)
[2021-08-31] MEDS: QUEtiapine Fumarate 25 MG TABLET 12.5 MG PO (22:35)
[2021-08-31] MEDS: cefTRIAXone sodium 1 GM in 0.9 % Sodium Chloride 50 ML IV (22:36)
[2021-09-01] VITALS: BP 110/76; PULSE 100; RESP 20; TEMP 36.9; O2SAT 97
[2021-09-01 03:54] VITALS: BP 118/78; PULSE 88; RESP 20; TEMP 36.6; O2SAT 97
[2021-09-01] MEDS: Levothyroxine Sodium 75 MCG TABLET PO (06:23)
[2021-09-01] MEDS: Amiodarone HCL 200 MG TABLET PO (10:44)
[2021-09-01] MEDS: QUEtiapine Fumarate 25 MG TABLET 12.5 MG PO (10:44)
[2021-09-01] MEDS: Heparin Sodium,Porcine 5,000 UNIT/ML VIAL 5000 UNIT SUBCUT (10:45)
[2021-09-01] MEDS: Furosemide 40 MG TABLET PO (10:45)
[2021-09-01] MEDS: Metoprolol Tartrate 50 MG TABLET PO (10:47)
[2021-09-01] MEDS: Nystatin Powder 15 GM BOTTLE 1 APPL TOPICAL (10:47)
[2021-09-01] MEDS: 0.9 % Sodium Chloride Flush 3 ML SYRINGE IVFLUSH (10:47)
[2021-09-01] MEDS: Nystatin Ointment 15 GM TUBE 1 APPL TOPICAL (10:48)
[2021-09-01] MEDS: Furosemide 20 MG TABLET PO (10:50)
[2021-09-01 10:51] VITALS: BP 105/84; PULSE 125
--- NOTE | 2021-09-01 13:53 | PM.PNNEP ---
Subjective Subjective Date of Service: 09/01/21 Principal diagnosis: Atrial flutter with rapid ventricular response, HFrEF Interval history: seen and examined confused Physical Exam Vital Signs: Vital Signs: Last Vital Signs Temp 97.9 F 09/01/21 03:54 Pulse 125 H 09/01/21 10:51 Resp 20 09/01/21 03:54 BP 105/84 09/01/21 10:51 Pulse Ox 97 09/01/21 03:54 BMI result Body Mass Index 26.2 Const: General: no acute distress HEENT: Head: Yes normocephalic and Yes atraumatic Neck: Neck: Yes supple Resp: Auscultation: diminished lung sounds Cardio: Heart sounds: S1 normal heart sound present and S2 normal heart sound present GI: Palpation (GI): Soft to palpation and nontender Extrem: General: Yes edema Objective Data Labs CBC & Chem 7: 08/31/21 06:46 08/31/21 06:45 Microbiology Microbiology Results: Microbiology 08/27/21 22:03 Urine Catheterized - Altamirano Catheter Urine Culture - Final Viridans streptococcus group Enterococcus faecalis 08/27/21 22:40 Blood - Venous Blood Culture - Preliminary No growth after 48 hours. 08/27/21 22:36 Blood - Venous Blood Culture - Preliminary No growth after 48 hours. Procedures Date of Service Date of Service: 09/01/21 Assessment & Plan Assessment and plan (1) JOVON (acute kidney injury): Status: Acute (2) Heart failure with reduced ejection fraction: Status: Acute (3) CKD (chronic kidney disease) stage 3, GFR 30-59 ml/min: Status: Acute Plan Scr stable but remain above baseline JOVON due to decreased effective circulation known heart failure with reduced function LVEF 40-45% h/o CKD 3 baseline Scr ~ 1.5 mg/dl REC continue oral loop diuretics follow kidney function and electrolytes will arrange for outpatient follow up Time Spent With Patient Time: Total time spent is greater than 50% in coordination of care (as documented) at patient's floor/unit and/or counseling patient: Progress Note: Quality Stroke Does the patient have a stroke diagnosis?: No
--- NOTE | 2021-09-01 14:52 | MHC.CM.PN ---
PT DISCHARGED HOME TODAY WITH NO SERVICES DAUGHTER TRANSPORTED.
--- NOTE | 2021-09-03 14:03 | MHC.CM.PN ---
Received notification from office, patient's daughter requesting a call from . T/W attempted to speak to Alina via telephone. Left a message requesting a return telephone call.
== END 2021-09-01 14:54 | disposition home or self-care (01) | DRG 689 ==
LOC: HO.ED 21:31 → HO.EDOVER 23:05 → HO.IMC 08-30 05:59
PROVIDERS: Admitting Provider Hospitalist; Emergency Provider Internal Medicine; PCP Internal Medicine; Visit Provider Hospitalist
DX: N30.00 Acute cystitis without hematuria (principal); I50.23 Acute on chronic systolic (congestive) heart failure; I13.0 Hypertensive heart and chronic kidney disease with heart failure and stage 1 through stage 4 chronic kidney disease, or unspecified chronic kidney disease; N17.9 Acute kidney failure, unspecified; N18.30 Chronic kidney disease, stage 3 unspecified; Z66 Do not resuscitate; F42.9 Obsessive-compulsive disorder, unspecified; E03.9 Hypothyroidism, unspecified; I48.0 Paroxysmal atrial fibrillation; I73.9 Peripheral vascular disease, unspecified; F03.90 Unspecified dementia, unspecified severity, without behavioral disturbance, psychotic disturbance, mood disturbance, and anxiety; Z20.822 Contact with and (suspected) exposure to COVID-19; Z85.41 Personal history of malignant neoplasm of cervix uteri; Z87.891 Personal history of nicotine dependence; Z88.6 Allergy status to analgesic agent; Z88.8 Allergy status to other drugs, medicaments and biological substances; Z86.718 Personal history of other venous thrombosis and embolism; Z79.890 Hormone replacement therapy; Z79.899 Other long term (current) drug therapy
CPT/HCPCS: 36415; 71045; 80048; 80053; 81001; 81003; 83605; 83735; 83880; 84443; 84484; 85025; 85610; 85730; 87040; 87086; 87088; 87186; 87635; 92610; 93005; 96365; 96375; 96376; 97162; 99285; C1758; J0696; J1940

== ENCOUNTER → 2021-09-07 07:02 | Outpatient (REF) | payer MEDICARE, MEDICAID, SELFPAY ==
--- NOTE | 2021-09-07 07:06 | HM_ITS ---
Conclusion: 1. Patient was monitored for total period of 1 day and 14 hours 2. Baseline was atrial fibrillation with average heart of 90 beats per minute with peak heart rate 112 beats per minute with borderline rate control 3. No significant bradycardia or pauses noted 4. No patient reported events MTDD
== END ==
LOC: HO.CARD 07:02
PROVIDERS: PCP Internal Medicine; Visit Provider Internal Medicine Cardiovascular Disease
DX: I48.92 Unspecified atrial flutter (principal)
CPT/HCPCS: 93242

== ENCOUNTER 2021-09-18 10:32 | Inpatient (IN) | payer MEDICARE, MEDICAID, SELFPAY ==
--- NOTE | ~2021-09-18 | CT_ITS ---
EXAMINATION: CT ABDOMEN AND PELVIS WITHOUT CONTRAST CLINICAL INFORMATION: UTI with infected ureteric stent COMPARISON: CT abdomen pelvis 08/23/2020 TECHNIQUE: Multidetector volumetric imaging was performed from the superior aspect of the liver through the pubic symphysis. Sagittal and coronal reformatted images were obtained on the technologist's workstation. This CT examination was performed using dose optimization techniques as appropriate, variously including the following: *Automated exposure control *Adjustment of mA and/or kV according to patient size (this includes techniques or standardized protocols for targeted exams where dose is matched to indication/reason for exam; i.e. extremities or head) *Use of iterative reconstruction technique DLP: 446 mGy-cm FINDINGS: LUNG BASES: The heart is mildly enlarged. Extensive coronary calcifications are present. A small right pleural effusion is present with bibasilar atelectasis. LIVER, GALLBLADDER, AND BILIARY TREE: The liver is normal in size, shape, and attenuation. No focal hepatic lesion or biliary ductal dilatation is present. Status post cholecystectomy. PANCREAS: Unremarkable aside from fatty atrophy. SPLEEN: Unremarkable. ADRENAL GLANDS: Unremarkable. KIDNEYS AND URETERS: Bilateral double-J ureteral stents are present some air is present in the right ureter and renal collecting system bilateral pelvocaliectasis is present. Findings appear similar to the prior study with the exception of the air present in the right collecting system. The kidneys are normal in size, shape, and attenuation. There is a single faint new calcification at the lower pole of the left kidney (6:44). No perinephric stranding. BLADDER: Empty with a symmetrically thickened wall. Some air is present within the bladder. GASTROINTESTINAL TRACT: The small and large bowel are unremarkable. The appendix is not seen with certainty but there is no evidence of appendicitis. ABDOMINAL WALL: No significant hernia is appreciated. Small bilateral inguinal hernias are present containing only fat. LYMPH NODES: No retroperitoneal lymphadenopathy. VASCULAR: Calcified plaque in the aorta without aneurysm. PELVIC VISCERA: Unremarkable. Uterine calcifications secondary to old fibroids OSSEOUS STRUCTURES: Degenerative changes are present in the spine. Mild grade 1 anterolisthesis L4 upon L5. CT/CT abdomen pelvis wo con IMPRESSION: 1. Bilateral double-J internally dwelling ureteral stents remain in place with bilateral hydronephrosis. 2. Air is now present in the bladder and right collecting system. This can be seen with UTI with air producing. Please correlate cultures as well as possible history of iatrogenic catheterization with introduction of air. 3. Other incidental findings described above including extensive coronary disease, small right pleural effusion, cholecystectomy, fatty pancreas, new tiny calculi left kidney and others described above Fleischner guidelines were followed.
--- NOTE | ~2021-09-18 | XR_ITS ---
EXAMINATION: XR CHEST CLINICAL INFORMATION: Fall. Weakness. COMPARISON: Previous chest x-rays most recent from earlier this month TECHNIQUE: 2 views of the chest were obtained. FINDINGS: The cardiac silhouette is enlarged but stable. Hilar and mediastinal contours are unremarkable. There are small bilateral pleural effusions similar to previous exam. No pneumothorax. The lungs are clear. There is a right jugular port with tip projecting over the SVC. Bilateral ureteral stents are partially visualized. There are degenerative changes of the spine. There are old bilateral rib fractures. XR/XR chest 2V IMPRESSION: Stable chest x-ray from earlier this month.
--- NOTE | ~2021-09-18 | CT_ITS ---
EXAMINATION: CT HEAD WITHOUT CONTRAST CLINICAL INFORMATION: Status post fall COMPARISON: None TECHNIQUE: Contiguous axial imaging was performed from the skull base to vertex without intravenous administration of contrast. This CT examination was performed using dose optimization techniques as appropriate, variously including the following: *Automated exposure control *Adjustment of mA and/or kV according to patient size (this includes techniques or standardized protocols for targeted exams where dose is matched to indication/reason for exam; i.e. extremities or head) *Use of iterative reconstruction technique DLP: 754 mGy-cm FINDINGS: There is no evidence of acute intracranial hemorrhage or territorial infarction. No abnormal mass effect or midline shift is seen. Lopez to white matter differentiation is well preserved. No extra-axial fluid collections are identified. The ventricles are symmetrical in size and configuration but mildly enlarged. There is diffuse periventricular hypodensity in both cerebral hemispheres without mass effect. The osseous structures and soft tissues are normal. The mastoid air cells and visualized portions of the paranasal sinuses are well aerated. CT/CT head/brain wo con IMPRESSION: No acute intracranial process seen. Age-related cerebral volume loss with chronic small vessel ischemic changes.
[2021-09-18 10:40] VITALS: BP 114/78; PULSE 97; RESP 18; TEMP 36.6; O2SAT 98; BMI 22.4
--- NOTE | 2021-09-18 10:45 | ECG_ITS ---
Test Reason : FALL Blood Pressure : / mmHG Vent. Rate : 096 BPM Atrial Rate : 096 BPM P-R Int : 176 ms QRS Dur : 110 ms QT Int : 406 ms P-R-T Axes : 110 -45 099 degrees QTc Int : 512 ms Atrial fibrillation Pulmonary disease pattern Left anterior fascicular block Minimal voltage criteria for LVH, may be normal variant ( Rafael product ) Septal infarct , age undetermined Prolonged QT Abnormal ECG When compared with ECG of 31-AUG-2021 20:44, No significant changes seen Referred By: Generic ED Physician Electronically Signed By:Abad Bishop
--- NOTE | 2021-09-18 20:25 | ED.FALL ---
HPI - Fall General Chief Complaint: Fall Stated Complaint: Fall/Arm pain? 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 Also patient was admitted 3 weeks ago for JOVON and UTI. Treated with antibiotics during stay in the hospital but the blood culture grew VRE. As such patient is doing okay no fever no cough no vomiting.. Patient does have ureteric stent in place which was changed about 6 months ago and does get frequent urinary tract infection Related Data Home Medications Medication Instructions Recorded Confirmed furosemide 40 mg tablet 20 mg PO DAILY@1200 08/27/21 09/05/21 furosemide 40 mg tablet (Lasix) 40 mg PO DAILY 08/27/21 09/05/21 nystatin 100,000 unit/gram topical 1 appl TOPICAL TID 08/27/21 09/05/21 ointment nystatin 100,000 unit/gram topical 1 appl TOPICAL BID 08/27/21 09/05/21 powder (Nystop) Previous Rx's Medication Instructions Recorded wheelchair #1 ea 08/24/20 pull ups medium #180 ea 01/03/21 levothyroxine 75 mcg tablet 75 mcg PO DAILY@0600 30 Days #30 06/28/21 tab metoprolol tartrate 25 mg tablet 25 mg PO BID 30 Days #180 tab 06/28/21 amiodarone 200 mg tablet 200 mg PO BID #60 tab 08/31/21 cefuroxime axetil 250 mg tablet 250 mg PO Q12H #20 tab 09/01/21 quetiapine 25 mg tablet (Seroquel) 12.5 mg PO DAILY #90 tab 09/05/21 trazodone 100 mg tablet 100 mg PO BEDTIME 30 Days #90 tab 09/06/21 Allergies Allergy/AdvReac Type Severity Reaction Status Date / Time amlodipine [From [facility]] Allergy Intermediate HIVES Verified 09/18/21 10:40 aspirin [ASA] Allergy Intermediate HIVES Verified 09/18/21 10:40 robert [ROBERT] Allergy Intermediate HIVES Verified 09/18/21 10:40 hydrochlorothiazide Allergy Unknown Hives Verified 09/18/21 10:40 gabapentin AdvReac Unknown dizziness Verified 09/18/21 10:40 lisinopril AdvReac Unknown Cough Verified 09/18/21 10:40 Review of Systems Review of Systems: Yes Unobtainable due to mental status [facility] Past Medical History Medical History (Updated 09/19/21 @ 01:04 by Williams Camargo MD) Anxiety Ramos's palsy Cervical cancer CHF (congestive heart failure) Cognitive impairment Congestive heart failure DVT (deep venous thrombosis) GERD (gastroesophageal reflux disease) Hospital discharge follow-up Hydronephrosis Hypercholesterolemia Hypertension Hypothyroidism Lumbar degenerative disc disease Obstructive uropathy Osteoarthritis Paroxysmal atrial fibrillation Peripheral vascular disease Vitamin D deficiency Surgical History H/O elbow surgery History of bladder surgery History of cholecystectomy Family History Family History Father Hypertension Stroke CVD (cardiovascular disease) Mother Hypoglycemia Social History Social History Household Members: Family Household Members Other:: Daughter lives on second floor Housing: Unknown / Unable to assess Do you presently have visiting nurse or other home services: No Unable to assess alcohol history related to: Unknown Alcohol intake: never Patient Tobacco Use Status: Former Tobacco user Tobacco use type: Cigarette e-Cigarette/Vaping Use: Never Used Second Hand Smoke Exposure: No Advance Directives: Yes Advance Directives on File: Yes Advance Directives Date on File: 09/08/20 service: No Current occupational status: disabled Cognitive needs: Yes Hearing needs: Yes Vision needs: Yes Physical Exam Vital Signs: Vital Signs: Last Vital Signs Temp 97.8 F 09/18/21 10:40 Pulse 102 H 09/18/21 23:11 Resp 16 09/18/21 23:11 BP 111/75 09/18/21 23:11 Pulse Ox 97 09/18/21 23:11 BMI result Body Mass Index 22.4 Appearance: Alert. Demented. No acute distress. Eyes: PERRLA, No Nystagmus ENT: Pharynx normal. Oral Mucosa moist Neck: Normal inspection. Neck supple. CVS: Irregularly irregular heart rate. Pulses normal. Respiratory: No respiratory distress. Equal air entry bilateral, no wheezing/rales/rhonchi Abdomen: Soft and nontender. Bowel sounds are present, no mass palpable, no CVA tenderness Skin: Skin warm and dry. Normal skin color. Normal skin turgor. Extremities: No lower extremity edema. No calf tenderness Neuro: Patient with dementia No motor deficit. MDM - Fall Medical Records Medical records narrative: Patient with VRE with ureteric stent with history of AFib with recent fall with slight dizziness per staff will admit patient for IV antibiotic VRE sensitive to ampicillin will give IV ampicillin. CT scan of the abdomen showed stents in place for some air in the bladder and collecting system will add cefepime for possible Klebsiella infection Lab Data Attestation: I reviewed the patient's lab results. Result diagrams: 09/18/21 22:50 09/18/21 22:50 Labs: Lab Results 09/18/21 09/18/21 09/18/21 Range/Units 21:00 22:50 22:50 WBC 6.2 (4.8-10.8) X10*3/uL RBC 4.56 D (4.20-5.50) X10*6/uL Hgb 13.5 D (12.0-16.0) g/dl Hct 41.6 D (37.0-47.0) % MCV 91.2 (80.0-98.0) fL MCH 29.6 (27.0-33.0) pg MCHC 32.5 (31.0-35.0) g/dl RDW 14.7 (11.0-16.0) % Plt Count 229 (160-400) X10*3/uL MPV 9.3 L (9.4-12.3) fL Immature Gran % (Auto) 0.3 (0.0-0.4) % Neut % (Auto) 70.0 (45-73) % Lymph % (Auto) 22.2 (20-40) % [place] % (Auto) 6.2 (2-11) % Eos % (Auto) 1.1 (0-4) % Baso % (Auto) 0.2 (0-2) % Lymph # (Auto) 1.4 (1.2-4.9) X10*3/uL [place] # (Auto) 0.4 (0.1-1.2) X10*3/uL Eos # (Auto) 0.1 (0.0-0.4) X10*3/uL Baso # (Auto) 0.0 (0.0-0.2) X10*3/uL Abs Immat Gran (auto) 0.02 (0.00-0.03) X10*3/uL Absolute Neuts (auto) 4.3 (2.0-8.3) x10*3/uL Absolute Nucleated RBC 0.000 (0.0-0.012) X10*3/uL Nucleated RBC % (auto) 0.0 (0.0-0.2) /100WBC Sodium 138 (135-145) mmol/L Potassium 4.2 (3.3-5.1) mmol/L Chloride 99 (96-108) mmol/L Carbon Dioxide 29 (22-29) mmol/L Anion Gap 14 (12-20) BUN 30 H (9-16) mg/dL Creatinine 2.22 H (0.5-1.4) mg/dL Estim Creat Clear Calc 13.3 Estimated GFR 21 Random Glucose 100 (60-115) mg/dL Lactic Acid (0.5-2.0) mmol/L Calcium 9.0 D (8.4-10.2) mg/dL Total Bilirubin 0.7 (0.0-1.0) mg/dL AST 33 H D (5-31) U/L ALT 24 (0-31) U/L Alkaline Phosphatase 109 D (39-117) U/L Troponin I High Sens (<3.5-17.0) ng/L Total Protein 8.0 D (6.5-8.0) g/dL Albumin 3.6 D (3.5-5.0) g/dL Urine Color YELLOW Urine Appearance CLOUDY Urine pH TNP Ur Specific [place] TNP Urine Protein TNP Urine Glucose (UA) TNP Urine Ketones TNP Urine Blood TNP Urine Nitrite TNP Ur Leukocyte Esterase TNP Urine RBC 1-4 (0) /HPF Urine WBC TNTC H (0-4) /HPF Urine WBC Clumps NOTED Ur Squamous Epith Cells TRACE /LPF Urine Bacteria 3+ /LPF COVID-19 ([place]) (Negative) COVID-19 Clin Com 09/18/21 09/18/21 09/18/21 Range/Units 22:50 22:50 22:50 WBC (4.8-10.8) X10*3/uL RBC (4.20-5.50) X10*6/uL Hgb (12.0-16.0) g/dl Hct (37.0-47.0) % MCV (80.0-98.0) fL MCH (27.0-33.0) pg MCHC (31.0-35.0) g/dl RDW (11.0-16.0) % Plt Count (160-400) X10*3/uL MPV (9.4-12.3) fL Immature Gran % (Auto) (0.0-0.4) % Neut % (Auto) (45-73) % Lymph % (Auto) (20-40) % [place] % (Auto) (2-11) % Eos % (Auto) (0-4) % Baso % (Auto) (0-2) % Lymph # (Auto) (1.2-4.9) X10*3/uL [place] # (Auto) (0.1-1.2) X10*3/uL Eos # (Auto) (0.0-0.4) X10*3/uL Baso # (Auto) (0.0-0.2) X10*3/uL Abs Immat Gran (auto) (0.00-0.03) X10*3/uL Absolute Neuts (auto) (2.0-8.3) x10*3/uL Absolute Nucleated RBC (0.0-0.012) X10*3/uL Nucleated RBC % (auto) (0.0-0.2) /100WBC Sodium (135-145) mmol/L Potassium (3.3-5.1) mmol/L Chloride (96-108) mmol/L Carbon Dioxide (22-29) mmol/L Anion Gap (12-20) BUN (9-16) mg/dL Creatinine (0.5-1.4) mg/dL Estim Creat Clear Calc Estimated GFR Random Glucose (60-115) mg/dL Lactic Acid 1.1 (0.5-2.0) mmol/L Calcium (8.4-10.2) mg/dL Total Bilirubin (0.0-1.0) mg/dL AST (5-31) U/L ALT (0-31) U/L Alkaline Phosphatase (39-117) U/L Troponin I High Sens 10.8 D (<3.5-17.0) ng/L Total Protein (6.5-8.0) g/dL Albumin (3.5-5.0) g/dL Urine Color Urine Appearance Urine pH Ur Specific [place] Urine Protein Urine Glucose (UA) Urine Ketones Urine Blood Urine Nitrite Ur Leukocyte Esterase Urine RBC (0) /HPF Urine WBC (0-4) /HPF Urine WBC Clumps Ur Squamous Epith Cells /LPF Urine Bacteria /LPF COVID-19 ([place]) Negative (Negative) COVID-19 Clin Com See Note ECG Data Attestation: I personally reviewed and interpreted this ECG as follows: Interpretation: AFib heart rate 96 beats per minute no acute ST-T changes no acute skin Discharge Plan Discharge Clinical Impression: UTI (urinary tract infection), Fall, Atrial fibrillation Patient Disposition: Admitted As Inpatient
[2021-09-18 20:47] VITALS: BP 121/74; PULSE 103
[2021-09-18 20:49] VITALS: BP 121/80; PULSE 106
[2021-09-18 20:50] VITALS: BP 107/70; PULSE 98
[2021-09-18 21:32] LABS: Appearance Urine CLOUDY; Color Urine YELLOW
[2021-09-18 21:35] LABS: Bacteria Urine 3+ /LPF; Squamous Epithelial Cell Urine TRACE /LPF; WBC Urine TNTC /HPF (0-4)
[2021-09-18 21:36] LABS: UACC CULT YES; WBC Clumps Urine NOTED
[2021-09-18 23:10] LABS: MANUAL DIFF FLAG NO
[2021-09-18 23:11] VITALS: BP 111/75; PULSE 102; RESP 16; O2SAT 97
[2021-09-18 23:11] LABS: Alanine Aminotransferase 24 U/L (0-31); Albumin Level 3.6 g/dL (3.5-5.0); Alkaline Phosphatase 109 U/L (39-117); Anion Gap 14 (12-20); Aspartate Amino Transferase 33 U/L (5-31); Bilirubin Total 0.7 mg/dL (0.0-1.0); Blood Urea Nitrogen 30 mg/dL (9-16); Carbon Dioxide 29 mmol/L (22-29); Chloride 99 mmol/L (96-108); Creatinine Clr Calc Pharmacy 13.3; Estimated Glomerular Filt Rate 21; Glucose Random 100 mg/dL (60-115); Potassium 4.2 mmol/L (3.3-5.1); Sodium 138 mmol/L (135-145)
[2021-09-18] MEDS: Ampicillin Sodium 1 GM in 0.9 % Sodium Chloride 100 ML IV (23:13)
[2021-09-18] MEDS: 0.9 % Sodium Chloride 1,000 ML 999 ML IV (23:13)
[2021-09-18 23:22] LABS: Lactic Acid 1.1 mmol/L (0.5-2.0)
[2021-09-18 23:31] LABS: COVID-19 Test Negative (Negative)
--- NOTE | 2021-09-18 23:39 | PM.IMHP ---
History of Present Illness Date of Service: 09/18/21 Chief Complaint: fall 86-year-old female with a past medical history of hypertension, hyperlipidemia, hypothyroidism, paroxysmal AFib, CHF, peripheral vascular disease, cognitive impairment, chronic degenerative spine disease, osteoarthritis, GERD, history of cervical cancer, chronic kidney disease, history of DVT, not on anticoagulation secondary to GI bleed; presented to the hospital with a chief complaint of fall. Most of the history obtained from the patient's daughter at bedside Reportedly patient went to the daycare center from home today he had patient felt weak and had a fall onto her back; denies any loss of consciousness bed felt like she is almost going to pass out; Per patient's daughter patient lesion her initial state of health including her mental status over the past few days. Denies any new complaints, denies any urinary symptoms, denies any abdominal pain Denies any chest pain or palpitations. Mentions that they have been titrating her antidepressant medication lately which intermittently use or dizziness. Review of all other systems is negative except mentioned above ER course: Per ER team patient on presentation noted a nonfocal examination; CT head showed no acute findings; CT abdomen showed gas in the urinary bladder; urinalysis was abnormal consistent with UTI -recent urine cultures patient also growing VRE; given ampicillin; EKG was nonischemic; patient was orthostatic positive; admitted to the hospital for further management [facility] Medical History (Updated 09/19/21 @ 01:04 by Williams Camargo MD) Anxiety Ramos's palsy Cervical cancer CHF (congestive heart failure) Cognitive impairment Congestive heart failure DVT (deep venous thrombosis) GERD (gastroesophageal reflux disease) Hospital discharge follow-up Hydronephrosis Hypercholesterolemia Hypertension Hypothyroidism Lumbar degenerative disc disease Obstructive uropathy Osteoarthritis Paroxysmal atrial fibrillation Peripheral vascular disease Vitamin D deficiency Family History Father Hypertension Stroke CVD (cardiovascular disease) Mother Hypoglycemia Surgical History H/O elbow surgery History of bladder surgery History of cholecystectomy Social History Household Members: Family Household Members Other:: Daughter lives on second floor Housing: Unknown / Unable to assess Do you presently have visiting nurse or other home services: No Unable to assess alcohol history related to: Unknown Alcohol intake: never Patient Tobacco Use Status: Former Tobacco user Tobacco use type: Cigarette e-Cigarette/Vaping Use: Never Used Second Hand Smoke Exposure: No Advance Directives: Yes Advance Directives on File: Yes Advance Directives Date on File: 09/08/20 service: No Current occupational status: disabled Cognitive needs: Yes Hearing needs: Yes Vision needs: Yes Meds Allergies Allergy/AdvReac Type Severity Reaction Status Date / Time amlodipine [From NORVASC] Allergy Intermediate HIVES Verified 09/18/21 10:40 aspirin [ASA] Allergy Intermediate HIVES Verified 09/18/21 10:40 robert [ROBERT] Allergy Intermediate HIVES Verified 09/18/21 10:40 hydrochlorothiazide Allergy Unknown Hives Verified 09/18/21 10:40 gabapentin AdvReac Unknown dizziness Verified 09/18/21 10:40 lisinopril AdvReac Unknown Cough Verified 09/18/21 10:40 Home Medications Medication Instructions Recorded Confirmed Last Taken Type furosemide 40 mg tablet 20 mg PO DAILY@1200 08/27/21 09/05/21 08/27/21 History furosemide 40 mg tablet (Lasix) 40 mg PO DAILY 08/27/21 09/05/21 08/27/21 History nystatin 100,000 unit/gram topical 1 appl TOPICAL TID 08/27/21 09/05/21 08/27/21 History ointment nystatin 100,000 unit/gram topical 1 appl TOPICAL BID 08/27/21 09/05/21 08/27/21 History powder (Nystop) Physical Exam Vital Signs and Narrative: Vital Signs: Last Vital Signs Temp 97.8 F 09/18/21 10:40 Pulse 102 H 09/18/21 23:11 Resp 16 09/18/21 23:11 BP 111/75 09/18/21 23:11 Pulse Ox 97 09/18/21 23:11 BMI result Body Mass Index 22.4 Gen: Appears be in no acute distress HEENT: NCAT, Moist mucosa. Pulmonary: Vesicular breath sounds, fair air entry CVS: Normal S1-S2 Abdomen: BS+, Soft, Nontender Extremities: Warm well perfused Neuro: Alert and awake. grossly nonfocal Results Labs CBC and Chem 7: 09/18/21 22:50 09/18/21 22:50 Labs: Laboratory Results - last 24 hr 09/18/21 09/18/21 09/18/21 21:00 22:50 22:50 Anion Gap 14 Estim Creat Clear Calc 13.3 Estimated GFR 21 Random Glucose 100 Lactic Acid 1.1 Calcium 9.0 D Total Bilirubin 0.7 AST 33 H D ALT 24 Alkaline Phosphatase 109 D Total Protein 8.0 D Albumin 3.6 D Urine Color YELLOW Urine Appearance CLOUDY Urine pH TNP Ur Specific [place] TNP Urine Protein TNP Urine Glucose (UA) TNP Urine Ketones TNP Urine Blood TNP Urine Nitrite TNP Ur Leukocyte Esterase TNP Urine RBC 1-4 Urine WBC TNTC H Urine WBC Clumps NOTED Ur Squamous Epith Cells TRACE Urine Bacteria 3+ COVID-19 ([place]) COVID-19 Clin Com 09/18/21 22:50 Anion Gap Estim Creat Clear Calc Estimated GFR Random Glucose Lactic Acid Calcium Total Bilirubin AST ALT Alkaline Phosphatase Total Protein Albumin Urine Color Urine Appearance Urine pH Ur Specific [place] Urine Protein Urine Glucose (UA) Urine Ketones Urine Blood Urine Nitrite Ur Leukocyte Esterase Urine RBC Urine WBC Urine WBC Clumps Ur Squamous Epith Cells Urine Bacteria COVID-19 ([place]) Negative COVID-19 Clin Com See Note Imaging Radiologist's Impressions: Impressions Chest X-Ray 09/18/21 11:20 IMPRESSION: Stable chest x-ray from earlier this month. Head CT 09/18/21 20:50 IMPRESSION: No acute intracranial process seen. Age-related cerebral volume loss with chronic small vessel ischemic changes. Abdomen/Pelvis CT 09/18/21 22:32 IMPRESSION: 1. Bilateral double-J internally dwelling ureteral stents remain in place with bilateral hydronephrosis. 2. Air is now present in the bladder and right collecting system. This can be seen with UTI with air producing. Please correlate cultures as well as possible history of iatrogenic catheterization with introduction of air. 3. Other incidental findings described above including extensive coronary disease, small right pleural effusion, cholecystectomy, fatty pancreas, new tiny calculi left kidney and others described above Fleischner guidelines were followed. Assessment and Plan Plan 86-year-old female with a past medical history of hypertension, hyperlipidemia, hypothyroidism, paroxysmal AFib, CHF, peripheral vascular disease, cognitive impairment, chronic degenerative spine disease, osteoarthritis, GERD, history of cervical cancer, chronic kidney disease, history of DVT, not on anticoagulation secondary to GI bleed; presented to the hospital with a chief complaint of fall. Near syncope: EKG nonischemic Initial troponin negative Monitor on telemetry Orthostatic vitals positive Gentle IV fluids Hold home antihypertensives for now UTI: Recent urine cultures grow VRE c/w ampicillin Id consult History of AFib: Patient on amiodarone. Not on anticoagulation secondary to history of GI bleed. Currently rate controlled. History of CHF: Currently not in fluid overload. Lasix on hold given orthostatic positive. Monitor for signs of fluid overload while on gentle IV fluids. History of hypothyroidism: Continue home levothyroxine History of CKD: Creatinine at baseline. DVT prophylaxis: Subcu heparin Code status: DNR/ DNI. Confirmed with the patient daughter at bedside Quality Stroke Does the patient have a stroke diagnosis?: No VTE Prior VTE?: No VTE Risk Level:: Medical - moderate - high VTE Device Contraindication: Treatment Not Indicated VTE Drug Contraindication: N/A - Med Ordered
[2021-09-18 23:58] LABS: Troponin-I High Sensitivity 10.8 ng/L (<3.5-17.0)
[2021-09-19] VITALS (7 sets, daily range): BP systolic 94–126; BP diastolic 61–86; PULSE 90–108; RESP 14–18; TEMP 36.6; O2SAT 93–100
[2021-09-19 00:25] LABS: Basophils Percent Auto 0.2 % (0-2); Eosinophils Absolute Auto 0.1 X10*3/uL (0.0-0.4); Eosinophils Percent Auto 1.1 % (0-4); Hematocrit 41.6 % (37.0-47.0); Hemoglobin 13.5 g/dl (12.0-16.0); Imm Gran Abs Auto 0.02 X10*3/uL (0.00-0.03); Imm Gran Pct Auto 0.3 % (0.0-0.4); Lymphocytes Absolute Auto 1.4 X10*3/uL (1.2-4.9); Lymphocytes Percent Auto 22.2 % (20-40); Mean Corpuscular HGB Conc 32.5 g/dl (31.0-35.0); Mean Corpuscular Hemoglobin 29.6 pg (27.0-33.0); Mean Corpuscular Volume 91.2 fL (80.0-98.0); Mean Platelet Volume 9.3 fL (9.4-12.3); Monocytes Absolute Auto 0.4 X10*3/uL (0.1-1.2); Monocytes Percent Auto 6.2 % (2-11); Neutrophils Absolute Auto 4.3 x10*3/uL (2.0-8.3); Platelet Count 229 X10*3/uL (160-400); Red Blood Count 4.56 X10*6/uL (4.20-5.50); Red Cell Distribution Width 14.7 % (11.0-16.0); White Blood Count 6.2 X10*3/uL (4.8-10.8)
[2021-09-19] MEDS: Melatonin 3 MG TABLET 6 MG PO (00:33)
[2021-09-19] MEDS: 0.9 % Sodium Chloride 1,000 ML 50 ML IVCONT ×2 (00:34→18:47)
[2021-09-19] MEDS: 0.9 % Sodium Chloride Flush 3 ML SYRINGE IVFLUSH (00:34)
[2021-09-19] MEDS: cefEPime HCl 1 GM in 0.9 % Sodium Chloride 50 ML IV (01:51)
--- NOTE | 2021-09-19 04:52 | PC.NURSE ---
Patient refused morning labs, Dr Art Beebe notified. Will monitor.
--- NOTE | 2021-09-19 07:27 | PHA.MEDREC ---
Pharmacy Consult ? Medication Reconciliation Pharmacy has completed the medication reconciliation.
[2021-09-19] MEDS: QUEtiapine Fumarate 25 MG TABLET 12.5 MG PO (09:32)
[2021-09-19] MEDS: Amiodarone HCL 200 MG TABLET PO ×2 (09:32→21:00)
[2021-09-19] MEDS: Metoprolol Tartrate 25 MG TABLET PO ×2 (09:33→20:59)
[2021-09-19] MEDS: Heparin Sodium,Porcine 5,000 UNIT/ML VIAL 5000 UNIT SUBCUT (11:32)
--- NOTE | 2021-09-19 13:31 | P.CNID_ITS ---
History of Present Illness Data of Consult Service Date: 09/19/21 Requesting physician: Chino Murillo Primary Care Provider: Renu Simon MD [facility] Reason for consult: agitation ?urinary source She presents to hospital after fall. She hit head and daughter brought to ER at request of her day program for Alzheimers. She has double J stent with hydronephrosis. She has had stents for six months She has no fever or chills and no leukocytosis. Her daughter says day program wants her to checked urine checked because of agitation. She has no hematuria. CT scan no acute changes Review of Systems Review of Systems: Yes Unobtainable due to mental status PMFSH Past Medical History Medical History (Updated 09/19/21 @ 13:38 by Paula Seaman MD) Anxiety Ramos's palsy Cervical cancer CHF (congestive heart failure) Cognitive impairment Congestive heart failure DVT (deep venous thrombosis) GERD (gastroesophageal reflux disease) Hospital discharge follow-up Hydronephrosis Hypercholesterolemia Hypertension Hypothyroidism Lumbar degenerative disc disease Obstructive uropathy Osteoarthritis Paroxysmal atrial fibrillation Peripheral vascular disease Pyuria Vitamin D deficiency Family History Family History Father Hypertension Stroke CVD (cardiovascular disease) Mother Hypoglycemia Family history: reviewed and not pertinent Surgical History Surgical History H/O elbow surgery History of bladder surgery History of cholecystectomy Social History Social History Household Members: Family Household Members Other:: Daughter lives on second floor Housing: Unknown / Unable to assess Do you presently have visiting nurse or other home services: No Unable to assess alcohol history related to: Unknown Alcohol intake: never Patient Tobacco Use Status: Former Tobacco user Tobacco use type: Cigarette e-Cigarette/Vaping Use: Never Used Second Hand Smoke Exposure: No Advance Directives: Yes Advance Directives on File: Yes Advance Directives Date on File: 09/08/20 service: No Current occupational status: disabled Cognitive needs: Yes Hearing needs: Yes Vision needs: Yes Meds Allergies Allergy/AdvReac Type Severity Reaction Status Date / Time amlodipine [From NORVASC] Allergy Intermediate HIVES Verified 09/18/21 10:40 aspirin [ASA] Allergy Intermediate HIVES Verified 09/18/21 10:40 robert [ROBERT] Allergy Intermediate HIVES Verified 09/18/21 10:40 hydrochlorothiazide Allergy Unknown Hives Verified 09/18/21 10:40 gabapentin AdvReac Unknown dizziness Verified 09/18/21 10:40 lisinopril AdvReac Unknown Cough Verified 09/18/21 10:40 Active Medications: Current Medications Acetaminophen (Acetaminophen 325 Mg Tablet) 650 mg PO Q6H PRN PRN Reason: Pain, Mild (Pain Scale 1-3) Amiodarone HCl (Amiodarone Hcl 200 Mg Tablet) 200 mg PO BID [facility] Last Admin: 09/19/21 09:32 Dose: 200 mg Documented by: Heparin Sodium (Porcine) (Heparin Sodium,Porcine 5,000 Unit/Ml Vial) 5,000 unit SUBCUT Q12H [facility] Last Admin: 09/19/21 11:32 Dose: 5,000 unit Documented by: Sodium Chloride (Ns) 1,000 mls @ 50 mls/hr IVCONT .Q20H [facility] Last Admin: 09/19/21 00:34 Dose: 50 mls/hr Documented by: Ampicillin Sodium 1 gm/ Sodium (Chloride) 100 mls @ 200 mls/hr IV Q24H [facility] Levothyroxine Sodium (Levothyroxine Sodium 75 Mcg Tablet) 75 mcg PO DAILY@0600 [facility] Melatonin (Melatonin 3 Mg Tablet) 6 mg PO BEDTIME PRN PRN Reason: Insomnia Last Admin: 09/19/21 00:33 Dose: 6 mg Documented by: Metoprolol Tartrate (Metoprolol Tartrate 25 Mg Tablet) 25 mg PO BID [facility]; Protocol Last Admin: 09/19/21 09:33 Dose: 25 mg Documented by: Quetiapine Fumarate (Quetiapine Fumarate 25 Mg Tablet) 12.5 mg PO DAILY [facility] Last Admin: 09/19/21 09:32 Dose: 12.5 mg Documented by: Senna (Sennosides 8.6 Mg Tablet) 17.2 mg PO BEDTIME PRN PRN Reason: Constipation Sodium Chloride (0.9 % Sodium Chloride Flush 3 Ml Syringe) 3 ml IVFLUSH QSHIFT [facility] Last Admin: 09/19/21 07:40 Dose: Not Given Documented by: Trazodone HCl (Trazodone Hcl 100 Mg Tablet) 100 mg PO BEDTIME [facility] Home Medications Medication Instructions Recorded Confirmed Last Taken Type furosemide 40 mg tablet 20 mg PO DAILY@1200 08/27/21 09/19/21 09/18/21 07:00 History furosemide 40 mg tablet (Lasix) 40 mg PO DAILY 08/27/21 09/19/21 09/18/21 14:00 History nystatin 100,000 unit/gram topical 1 appl TOPICAL TID 08/27/21 09/19/21 09/18/21 19:00 History ointment nystatin 100,000 unit/gram topical 1 appl TOPICAL BID 08/27/21 09/19/21 09/18/21 19:00 History powder (Nystop) Physical Exam Vital Signs: Vital Signs: Last Vital Signs Temp 97.8 F 09/18/21 10:40 Pulse 108 H 09/19/21 09:35 Resp 16 09/19/21 09:35 BP 112/78 09/19/21 09:35 Pulse Ox 95 09/19/21 09:35 BMI result Body Mass Index 22.4 Const: General: cooperative Eyes: General: appearance normal, both eyes and all related structures Resp: Effort & Inspection: normal respiratory effort Cardio: Rate: regular rate Rhythm: regular rhythm GI: Palpation (GI): Soft to palpation and nontender Extrem: General: Yes normal to inspection Results Labs CBC & Chem 7: 09/18/21 22:50 09/18/21 22:50 Labs: Short CBC 09/18/21 Range/Units 22:50 WBC 6.2 (4.8-10.8) X10*3/uL Hgb 13.5 D (12.0-16.0) g/dl Hct 41.6 D (37.0-47.0) % Plt Count 229 (160-400) X10*3/uL BMP 09/18/21 22:50 Sodium 138 Potassium 4.2 Chloride 99 Carbon Dioxide 29 BUN 30 H Creatinine 2.22 H Calcium 9.0 D Liver Function 09/18/21 Range/Units 22:50 Total Bilirubin 0.7 (0.0-1.0) mg/dL AST 33 H D (5-31) U/L ALT 24 (0-31) U/L Alkaline Phosphatase 109 D (39-117) U/L Albumin 3.6 D (3.5-5.0) g/dL Urine 09/18/21 Range/Units 21:00 Urine Color YELLOW Urine Appearance CLOUDY Urine pH TNP Ur Specific [place] TNP Urine Protein TNP Urine Glucose (UA) TNP Microbiology Microbiology Results: Microbiology 09/18/21 21:00 Urine clean catch - Urine ramirez top Urine Culture - Preli minary Culture too young to evaluate. Assessment and Plan (1) Pyuria: Status: Acute She has no signs of urinary sepsis with no fever or leukocytosis. She has agitation and not likely all urinary associated. She was discharged hospital on 08/31 for 10 days Ceftin She has urine VRE and strep viridans more than 100,000 on 08/27. (2) Fall: Status: Acute Plan Stop Ampicillin if culture unremarkable,adjust antibiotics if bacteremia or other organism Stop checking routine urine for agitation Urology follow stents
--- NOTE | 2021-09-19 13:35 | MHC.CM.PN ---
Met with pt and dtr to review d/c needs: pt resides alone on the first floor of a duplex: dtr resides upstairs and assists prn. Pt has 28 hrs of [employer] care, uses a walker or w/c defending on situation and has transportation provided by family. Pt attends a senior day program M-. D/C plan is for a return to home with existing services/supports: dtr Alina (pt's HCP) to transport. HCP/MOLST/signed IMM in chart. Moderna x 2 no vax yet. CM to follow.
[2021-09-19 14:38] LABS: Basophils Percent Auto 0.2 % (0-2); Eosinophils Absolute Auto 0.1 X10*3/uL (0.0-0.4); Eosinophils Percent Auto 1.7 % (0-4); Hemoglobin 12.8 g/dl (12.0-16.0); Imm Gran Abs Auto 0.01 X10*3/uL (0.00-0.03); Imm Gran Pct Auto 0.2 % (0.0-0.4); Lymphocytes Percent Auto 23.6 % (20-40); MANUAL DIFF FLAG NO; Mean Corpuscular Hemoglobin 29.6 pg (27.0-33.0); Mean Corpuscular Volume 92.6 fL (80.0-98.0); Mean Platelet Volume 9.2 fL (9.4-12.3); Monocytes Absolute Auto 0.2 X10*3/uL (0.1-1.2); Monocytes Percent Auto 5.7 % (2-11); Neutrophils Absolute Auto 2.9 x10*3/uL (2.0-8.3); Neutrophils Percent Auto 68.6 % (45-73); Platelet Count 195 X10*3/uL (160-400); Red Blood Count 4.32 X10*6/uL (4.20-5.50); Red Cell Distribution Width 14.7 % (11.0-16.0); White Blood Count 4.2 X10*3/uL (4.8-10.8)
--- NOTE | 2021-09-19 14:51 | HO.PM.IMPN ---
Subjective Subjective Date of Service: 09/19/21 Interval History: cc: presyncope interval history: sleepy Cardiovascular Cardiovascular: Reports no additional cardiovascular complaints Respiratory Respiratory: Reports no additional respiratory complaints Physical Exam Vital Signs: Vital Signs: Last Vital Signs Temp 97.8 F 09/18/21 10:40 Pulse 108 H 09/19/21 09:35 Resp 16 09/19/21 09:35 BP 112/78 09/19/21 09:35 Pulse Ox 95 09/19/21 09:35 BMI result Body Mass Index 22.4 General: AO X 3, no acute distress Resp: CTA bilateral, no accessory muscles used CVS: S1,S2,RRR GI: soft, non tender, non distended Neuro: motor grossly intact, alert Psych: appropriate affect, appropriate insight Objective Data Active Medications Acetaminophen (Acetaminophen 325 Mg Tablet) 650 mg PO Q6H PRN PRN Reason: Pain, Mild (Pain Scale 1-3) Amiodarone HCl (Amiodarone Hcl 200 Mg Tablet) 200 mg PO BID [facility] Last Admin: 09/19/21 09:32 Dose: 200 mg Documented by: MINNIE Heparin Sodium (Porcine) (Heparin Sodium,Porcine 5,000 Unit/Ml Vial) 5,000 unit SUBCUT Q12H [facility] Last Admin: 09/19/21 11:32 Dose: 5,000 unit Documented by: LOUIS Sodium Chloride (Ns) 1,000 mls @ 50 mls/hr IVCONT .Q20H [facility] Last Admin: 09/19/21 00:34 Dose: 50 mls/hr Documented by: COLLETTE Ampicillin Sodium 1 gm/ Sodium (Chloride) 100 mls @ 200 mls/hr IV Q24H [facility] Levothyroxine Sodium (Levothyroxine Sodium 75 Mcg Tablet) 75 mcg PO DAILY@0600 [facility] Melatonin (Melatonin 3 Mg Tablet) 6 mg PO BEDTIME PRN PRN Reason: Insomnia Last Admin: 09/19/21 00:33 Dose: 6 mg Documented by: COLLETTE Metoprolol Tartrate (Metoprolol Tartrate 25 Mg Tablet) 25 mg PO BID [facility]; Protocol Last Admin: 09/19/21 09:33 Dose: 25 mg Documented by: MINNIE Quetiapine Fumarate (Quetiapine Fumarate 25 Mg Tablet) 12.5 mg PO DAILY [facility] Last Admin: 09/19/21 09:32 Dose: 12.5 mg Documented by: MINNIE Senna (Sennosides 8.6 Mg Tablet) 17.2 mg PO BEDTIME PRN PRN Reason: Constipation Sodium Chloride (0.9 % Sodium Chloride Flush 3 Ml Syringe) 3 ml IVFLUSH QSHIFT [facility] Last Admin: 09/19/21 07:40 Dose: Not Given Documented by: MINNIE Non-Admin Reason: IV Running Trazodone HCl (Trazodone Hcl 100 Mg Tablet) 100 mg PO BEDTIME [facility] Labs CBC & Chem 7: 09/19/21 14:28 09/18/21 22:50 Labs: Laboratory Results - last 24 hr 09/18/21 09/18/21 09/18/21 21:00 22:50 22:50 MCV 91.2 MCH 29.6 MCHC 32.5 RDW 14.7 Plt Count 229 MPV 9.3 L Immature Gran % (Auto) 0.3 Neut % (Auto) 70.0 Lymph % (Auto) 22.2 [place] % (Auto) 6.2 Eos % (Auto) 1.1 Baso % (Auto) 0.2 Lymph # (Auto) 1.4 [place] # (Auto) 0.4 Eos # (Auto) 0.1 Baso # (Auto) 0.0 Abs Immat Gran (auto) 0.02 Absolute Neuts (auto) 4.3 Absolute Nucleated RBC 0.000 Nucleated RBC % (auto) 0.0 Anion Gap 14 Estim Creat Clear Calc 13.3 Estimated GFR 21 Random Glucose 100 Lactic Acid Calcium 9.0 D Total Bilirubin 0.7 AST 33 H D ALT 24 Alkaline Phosphatase 109 D Troponin I High Sens Total Protein 8.0 D Albumin 3.6 D Urine Color YELLOW Urine Appearance CLOUDY Urine pH TNP Ur Specific [place] TNP Urine Protein TNP Urine Glucose (UA) TNP Urine Ketones TNP Urine Blood TNP Urine Nitrite TNP Ur Leukocyte Esterase TNP Urine RBC 1-4 Urine WBC TNTC H Urine WBC Clumps NOTED Ur Squamous Epith Cells TRACE Urine Bacteria 3+ COVID-19 ([place]) COVID-19 Clin Com 09/18/21 09/18/21 09/18/21 22:50 22:50 22:50 MCV MCH MCHC RDW Plt Count MPV Immature Gran % (Auto) Neut % (Auto) Lymph % (Auto) [place] % (Auto) Eos % (Auto) Baso % (Auto) Lymph # (Auto) [place] # (Auto) Eos # (Auto) Baso # (Auto) Abs Immat Gran (auto) Absolute Neuts (auto) Absolute Nucleated RBC Nucleated RBC % (auto) Anion Gap Estim Creat Clear Calc Estimated GFR Random Glucose Lactic Acid 1.1 Calcium Total Bilirubin AST ALT Alkaline Phosphatase Troponin I High Sens 10.8 D Total Protein Albumin Urine Color Urine Appearance Urine pH Ur Specific [place] Urine Protein Urine Glucose (UA) Urine Ketones Urine Blood Urine Nitrite Ur Leukocyte Esterase Urine RBC Urine WBC Urine WBC Clumps Ur Squamous Epith Cells Urine Bacteria COVID-19 ([place]) Negative COVID-19 Clin Com See Note 09/19/21 14:28 MCV 92.6 MCH 29.6 MCHC 32.0 RDW 14.7 Plt Count 195 MPV 9.2 L Immature Gran % (Auto) 0.2 Neut % (Auto) 68.6 Lymph % (Auto) 23.6 [place] % (Auto) 5.7 Eos % (Auto) 1.7 Baso % (Auto) 0.2 Lymph # (Auto) 1.0 L [place] # (Auto) 0.2 Eos # (Auto) 0.1 Baso # (Auto) 0.0 Abs Immat Gran (auto) 0.01 Absolute Neuts (auto) 2.9 Absolute Nucleated RBC 0.000 Nucleated RBC % (auto) 0.0 Anion Gap Estim Creat Clear Calc Estimated GFR Random Glucose Lactic Acid Calcium Total Bilirubin AST ALT Alkaline Phosphatase Troponin I High Sens Total Protein Albumin Urine Color Urine Appearance Urine pH Ur Specific [place] Urine Protein Urine Glucose (UA) Urine Ketones Urine Blood Urine Nitrite Ur Leukocyte Esterase Urine RBC Urine WBC Urine WBC Clumps Ur Squamous Epith Cells Urine Bacteria COVID-19 ([place]) COVID-19 Clin Com Microbiology Microbiology Results: Microbiology 09/18/21 21:00 Urine Culture - Preliminary Urine clean catch - Urine ramirez top Culture too young to evaluate. Assessment and Plan (1) AMS (altered mental status): Status: Resolved (2) UTI (urinary tract infection): Status: Resolved (3) Paroxysmal atrial fibrillation: Status: Acute (4) JOVON (acute kidney injury): Status: Resolved Plan 86-year-old female with a past medical history of hypertension, hyperlipidemia, hypothyroidism, paroxysmal AFib, peripheral vascular disease, history of DVT, not on anticoagulation secondary to anemia/GI bleed; GERD, cognitive impairment, anxiety, history of cervical cancer, vitamin-D deficiency, osteoarthritis, degenerative spine disease presented to the hospital with a chief complaint of presyncope Presyncope Due to orthostatic hypotension IV fluids Hold antihypertensive Monitor UTI with history of bilateral stents and VRE and bilateral hydro Continue ampicillin Follow-up chronic systolic chf lopressor, holding lasix while hydrating paroxysmal afib lopressor amio no ac due to bleeding history hypothryoid synthroid 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
[2021-09-19 14:59] LABS: Anion Gap 14 (12-20); Blood Urea Nitrogen 28 mg/dL (9-16); Calcium 8.5 mg/dL (8.4-10.2); Carbon Dioxide 27 mmol/L (22-29); Chloride 103 mmol/L (96-108); Creatinine Clr Calc Pharmacy 14.7; Estimated Glomerular Filt Rate 24; Glucose Random 91 mg/dL (60-115); Magnesium 2.1 mg/dL (1.6-2.6); Potassium 4.6 mmol/L (3.3-5.1); Sodium 139 mmol/L (135-145)
[2021-09-19] MEDS: traZODone HCL 100 MG TABLET PO (21:00)
[2021-09-20 00:15] VITALS: BP 105/72; PULSE 87; RESP 17; TEMP 36.4; O2SAT 95
[2021-09-20 03:59] VITALS: BP 118/83; PULSE 98; RESP 18; O2SAT 98
[2021-09-20] MEDS: Levothyroxine Sodium 75 MCG TABLET PO (06:35)
[2021-09-20 07:14] LABS: Hematocrit 39.2 % (37.0-47.0); Hemoglobin 12.7 g/dl (12.0-16.0); Mean Corpuscular HGB Conc 32.4 g/dl (31.0-35.0); Mean Corpuscular Hemoglobin 29.7 pg (27.0-33.0); Mean Corpuscular Volume 91.6 fL (80.0-98.0); Mean Platelet Volume 9.7 fL (9.4-12.3); Platelet Count 215 X10*3/uL (160-400); Red Blood Count 4.28 X10*6/uL (4.20-5.50); Red Cell Distribution Width 14.7 % (11.0-16.0); White Blood Count 3.9 X10*3/uL (4.8-10.8)
[2021-09-20 07:43] LABS: Anion Gap 14 (12-20); Blood Urea Nitrogen 26 mg/dL (9-16); Calcium 8.5 mg/dL (8.4-10.2); Carbon Dioxide 26 mmol/L (22-29); Chloride 104 mmol/L (96-108); Creatinine Clr Calc Pharmacy 16.6; Estimated Glomerular Filt Rate 27; Glucose Fasting 82 mg/dL (60-99); Potassium 4.5 mmol/L (3.3-5.1); Sodium 139 mmol/L (135-145)
[2021-09-20] MEDS: Metoprolol Tartrate 25 MG TABLET PO (10:07)
[2021-09-20] MEDS: QUEtiapine Fumarate 25 MG TABLET 12.5 MG PO (10:07)
[2021-09-20] MEDS: Amiodarone HCL 200 MG TABLET PO (10:07)
--- NOTE | 2021-09-20 11:40 | P.DS_ITS ---
DS: Providers Provider Date of Service: 09/20/21 Date of admission: 09/18/21 23:37 Primary care physician: Renu Simon MD Consults: 09/18/21 23:37 Consult to Infectious Diseases Routine Consulting Provider: Paula Seaman Reason for consultation: VRE UTI; 09/19/21 01:02 Consult to Urology Routine Consulting Provider: Moshe Pugh Reason for consultation: uti; air in bladder DS: Diagnosis Discharge Diagnosis (1) AMS (altered mental status): Status: Resolved (2) UTI (urinary tract infection): Status: Resolved (3) Paroxysmal atrial fibrillation: Status: Acute (4) JOVON (acute kidney injury): Status: Resolved DS: Summary Hospital Course Hospital Course: from initial hpi: Chief Complaint: fall ?86-year-old female with a past medical history of hypertension, hyperlipidemia, hypothyroidism, paroxysmal AFib, CHF, peripheral vascular disease, cognitive impairment, chronic? degenerative spine disease, osteoarthritis, GERD, history of cervical cancer, chronic kidney disease, history of DVT, not on anticoagulation secondary to GI bleed; presented to the hospital with a chief complaint of fall.? Most of the history obtained from the patient's daughter at bedside Reportedly patient went to the daycare center from home today he had patient felt weak and had a fall onto her back; denies any loss of consciousness bed felt like she is almost going to pass out; Per patient's daughter patient lesion her initial state of health including her mental status over the past few days.? Denies any new complaints, denies any urinary symptoms, denies any abdominal pain Denies any chest pain or palpitations.? Mentions that they have been titrating her antidepressant medication lately which intermittently use or dizziness.? Review of all other systems is negative except mentioned above ER course: Per ER team patient on presentation noted a nonfocal examination; CT head showed no acute findings; CT abdomen showed gas in the urinary bladder; urinalysis was abnormal consistent with UTI -recent urine cultures patient also growing VRE; given ampicillin; EKG was nonischemic; patient was orthostatic positive; admitted to the hospital for further management hospital course: Patient was admitted for presyncope due to orthostatic hypotension. This improv ed with IV fluids and holding antihypertensives. Lasix will remain on hold, patient should be aware for orthostatic hypertension take precautions. If there are issues with fluid overload she can follow up with PCP. Initially there was concern with urinary tract infection, however, urine culture was negative, Infectious Disease recommended no further treatment. Patient does have bilateral stents and bilateral hydronephrosis, she should follow up with Urology as outpatient for this. For chronic systolic CHF she will continue Lopressor, Lasix will be held for now but may need a be restarted if patient becomes fluid overloaded. For paroxysmal atrial fibrillation she will continue on Lopressor and amiodarone, she is not on anticoagulation due to history of GI bleed, for hypothyroidism she will continue Synthroid, her CKD IV remained at baseline. Time Spent with Patient Time attestation: Total time spent providing and/or coordinating discharge services: Discharge coordination time: Greater than 30 minutes Quality: Safe Use of Opioids Does Pt have an Active Cancer Diagnosis on the Problem List?: No Quality: Stroke Does the patient have a stroke diagnosis?: No Physical Exam Vital Signs: Vital Signs: Last Vital Signs Temp 97.5 F 09/20/21 00:15 Pulse 98 09/20/21 03:59 Resp 18 09/20/21 03:59 BP 118/83 09/20/21 03:59 Pulse Ox 98 09/20/21 03:59 BMI result Body Mass Index 22.4 General: AO X 3, no acute distress Resp: CTA bilateral, no accessory muscles used CVS: S1,S2,RRR GI: soft, non tender, non distended Neuro: motor grossly intact, alert Psych: appropriate affect, appropriate insight DS: Data Data Completed and Pending Completed studies during hospitalization [Text1]: Procedures Dilation of Left Ureter with Intraluminal Device, Via Natural or Artificial Opening Endoscopic (05/19/20) Dilation of Right Ureter with Intraluminal Device, Via Natural or Artificial Opening Endoscopic (05/19/20) Removal of Intraluminal Device from Ureter, Via Natural or Artificial Opening Endoscopic (05/19/20) Congregation of Cardiac Rhythm, Single (01/26/20) Transfusion of Nonautologous Red Blood Cells into Peripheral Vein, Percutaneous Approach (08/23/20) Labs on day of discharge: Laboratory Results - last 24 hr 09/19/21 09/19/21 09/20/21 14:28 14:28 06:28 WBC 4.2 L 3.9 L RBC 4.32 4.28 Hgb 12.8 12.7 Hct 40.0 39.2 MCV 92.6 91.6 MCH 29.6 29.7 MCHC 32.0 32.4 RDW 14.7 14.7 Plt Count 195 215 MPV 9.2 L 9.7 Immature Gran % (Auto) 0.2 Neut % (Auto) 68.6 Lymph % (Auto) 23.6 [place] % (Auto) 5.7 Eos % (Auto) 1.7 Baso % (Auto) 0.2 Lymph # (Auto) 1.0 L [place] # (Auto) 0.2 Eos # (Auto) 0.1 Baso # (Auto) 0.0 Abs Immat Gran (auto) 0.01 Absolute Neuts (auto) 2.9 Absolute Nucleated RBC 0.000 0.000 Nucleated RBC % (auto) 0.0 0.0 Sodium 139 Potassium 4.6 Chloride 103 Carbon Dioxide 27 Anion Gap 14 BUN 28 H Creatinine 2.00 H Estim Creat Clear Calc 14.7 Estimated GFR 24 Random Glucose 91 Fasting Glucose Calcium 8.5 Magnesium 2.1 09/20/21 06:28 WBC RBC Hgb Hct MCV MCH MCHC RDW Plt Count MPV Immature Gran % (Auto) Neut % (Auto) Lymph % (Auto) [place] % (Auto) Eos % (Auto) Baso % (Auto) Lymph # (Auto) [place] # (Auto) Eos # (Auto) Baso # (Auto) Abs Immat Gran (auto) Absolute Neuts (auto) Absolute Nucleated RBC Nucleated RBC % (auto) Sodium 139 Potassium 4.5 Chloride 104 Carbon Dioxide 26 Anion Gap 14 BUN 26 H Creatinine 1.78 H Estim Creat Clear Calc 16.6 Estimated GFR 27 Random Glucose Fasting Glucose 82 Calcium 8.5 Magnesium Preliminary micro results at discharge 09/18/21 22:50 Blood Culture - Preliminary Blood - Venous No growth after 24 hours. 09/18/21 22:50 Blood Culture - Preliminary Blood - Venous No growth after 24 hours. Discharge Plan Discharge Patient Disposition: Home, Self-Care Discharge Diagnosis: orthostatic hypotension Referrals: Alfred,Renu Ignacio MD [Primary Care Provider] - 1 Week Discharge Medications: Continued (DME) wheelchair See Rx Instructions .Route .MEDSUPPLY Qty: 1 0RF Rx Instructions: As directed (DME) pull ups medium See Rx Instructions .Route .MEDSUPPLY Qty: 180 11RF Rx Instructions: As directed metoprolol tartrate 25 mg tablet 25 mg PO BID 30 Days Qty: 180 0RF Protocol: Hold for SBP/HR < HOLD for SBP < : 90 HOLD for HR < : 60 levothyroxine 75 mcg tablet 75 mcg PO DAILY@0600 30 Days Qty: 30 2RF trazodone 100 mg tablet 100 mg PO BEDTIME 30 Days Qty: 90 0RF nystatin 100,000 unit/gram ointment 1 appl topical TID 0RF nystatin [Nystop] 100,000 unit/gram powder 1 appl topical BID 0RF amiodarone 200 mg Tablet 200 mg PO BID Qty: 60 0RF quetiapine [Seroquel] 25 mg tablet 12.5 mg PO DAILY Qty: 90 0RF Held furosemide 40 mg Tablet 20 mg PO DAILY@1200 0RF Hold Instructions: Resume on 09/24/21. follow up with pcp for when to restart furosemide [Lasix] 40 mg tablet 40 mg PO DAILY 0RF Hold Instructions: Resume on 09/24/21. follow up with pcp Discharge Orders: Discharge Order (Routine); Ordered 09/20/21 Ordered By: Chino Murillo Diet: advance to usual diet Activity on Discharge: As tolerated Stand Alone Forms: Patient Portal Discharge page Care Plan Goals: avoid falls Health Concerns: orthostatic hypotension, ureteral stents with hydronephrosis Plan of Treatment: awareness of orthostatic hypotension, take precuations such as taking time to stand up. hold lasix for now and follow up with pcp if need to restart for fluid overload. urine culture was negative, no need for anbitbiotics, follow up with urology for stents and hydronephrosis Assessment: see above
--- NOTE | 2021-09-20 12:33 | MHC.CM.PN ---
Received notification patient will be d/c'd home. Daughter will transport patient home.
== END 2021-09-20 16:22 | disposition home or self-care (01) | DRG 312 ==
LOC: HO.ED 20:21 → HO.EDOVER 23:52
PROVIDERS: Admitting Provider Hospitalist; Emergency Provider Internal Medicine; PCP Internal Medicine; Visit Provider Internal Medicine
DX: I95.1 Orthostatic hypotension (principal); I13.0 Hypertensive heart and chronic kidney disease with heart failure and stage 1 through stage 4 chronic kidney disease, or unspecified chronic kidney disease; I50.22 Chronic systolic (congestive) heart failure; N18.4 Chronic kidney disease, stage 4 (severe); I48.0 Paroxysmal atrial fibrillation; Z66 Do not resuscitate; E03.9 Hypothyroidism, unspecified; G31.84 Mild cognitive impairment of uncertain or unknown etiology; K21.9 Gastro-esophageal reflux disease without esophagitis; Z20.822 Contact with and (suspected) exposure to COVID-19; Z87.891 Personal history of nicotine dependence; Z87.440 Personal history of urinary (tract) infections; Z88.6 Allergy status to analgesic agent; Z88.8 Allergy status to other drugs, medicaments and biological substances; Z79.890 Hormone replacement therapy; Z79.899 Other long term (current) drug therapy
CPT/HCPCS: 36415; 70450; 71046; 74176; 80048; 80053; 81001; 83605; 83735; 84484; 85025; 85027; 87040; 87086; 87635; 93005; 99285; J0290; J0692

== ENCOUNTER 2021-09-21 15:40 | Emergency (ER) | payer MEDICARE, MEDICAID, SELFPAY ==
--- NOTE | ~2021-09-21 | XR_ITS ---
EXAMINATION: XR THORACIC SPINE CLINICAL INFORMATION: Fall. COMPARISON: Most recent chest radiographs dated 09/18/2021. TECHNIQUE: AP and crosstable lateral views of the thoracic spine were obtained. FINDINGS: Evaluation significantly limited due to patient positioning. Mild dextrocurvature of the lower thoracic spine is unchanged. No new loss of vertebral body height; however, evaluation is significantly limited due to patient positioning. Multilevel degenerative disc disease is redemonstrated. Partially visualized right-sided chest port and ureteral stents. XR/XR thoracic spine 3V IMPRESSION: Evaluation significantly limited due to patient positioning. No obvious fracture or subluxation.
--- NOTE | ~2021-09-21 | XR_ITS ---
EXAMINATION: XR KNEE, RIGHT CLINICAL INFORMATION: Fall. COMPARISON: Right knee radiographs dated 08/30/2014. TECHNIQUE: Four views of the right knee. FINDINGS: Tricompartmental joint space narrowing with marginal osteophytes. No osseous erosion. No acute fracture or dislocation. No significant joint effusion. XR/XR knee RT 4V IMPRESSION: Tricompartmental osteoarthritis, slightly progressed when compared to the prior radiographs.
[2021-09-21 17:20] VITALS: BP 101/71; PULSE 106; RESP 18; TEMP 36.7; O2SAT 96; BMI 23.2
--- NOTE | 2021-09-21 21:07 | ED_ITS ---
HPI - Fall General Chief Complaint: Fall Stated Complaint: fall/ knee pain/abrasion on L forearm Time Seen by Provider: 09/21/21 21:07 Source: patient, family (Daughter) and automotive parts interpreter Mode of arrival: ambulatory Limitations: no limitations History of Present Illness HPI Narrative: 86-year-old female came in with her daughter for evaluation after had a mechanical fall. Patient with past medical history significant for HTN, hyperlipidemia, hypothyroidism, paroxysmal AFib, CHF, peripheral vascular disease, cognitive impairment, chronic kidney disease, history of DVT not on anticoagulation secondary to GI bleeding, patient is poor historian at her baseline, most of the history was obtained from the daughter at the bedside. Patient was recently admitted to the hospital for frequent fall, patient was discharged from the hospital yesterday, as per daughter patient sustained 2 separate falls today while she was walking with her walker, witnessed by the family reportedly no head injury. As per daughter patient was complaining of upper back pain and bilateral knees pain, while interviewing the patient patient appeared comfortable declined any pain. Related Data Home Medications Medication Instructions Recorded Confirmed furosemide 40 mg tablet 20 mg PO DAILY@1200 08/27/21 09/19/21 furosemide 40 mg tablet (Lasix) 40 mg PO DAILY 08/27/21 09/19/21 nystatin 100,000 unit/gram topical 1 appl TOPICAL TID 08/27/21 09/19/21 ointment nystatin 100,000 unit/gram topical 1 appl TOPICAL BID 08/27/21 09/19/21 powder (Nystop) Previous Rx's Medication Instructions Recorded wheelchair #1 ea 08/24/20 pull ups medium #180 ea 01/03/21 levothyroxine 75 mcg tablet 75 mcg PO DAILY@0600 30 Days #30 06/28/21 tab metoprolol tartrate 25 mg tablet 25 mg PO BID 30 Days #180 tab 06/28/21 amiodarone 200 mg tablet 200 mg PO BID #60 tab 08/31/21 quetiapine 25 mg tablet (Seroquel) 12.5 mg PO DAILY #90 tab 09/05/21 trazodone 100 mg tablet 100 mg PO BEDTIME 30 Days #90 tab 09/06/21 Allergies Allergy/AdvReac Type Severity Reaction Status Date / Time amlodipine [From [facility]] Allergy Intermediate HIVES Verified 09/21/21 17:20 aspirin [ASA] Allergy Intermediate HIVES Verified 09/21/21 17:20 robert [ROBERT] Allergy Intermediate HIVES Verified 09/21/21 17:20 hydrochlorothiazide Allergy Unknown Hives Verified 09/21/21 17:20 gabapentin AdvReac Unknown dizziness Verified 09/21/21 17:20 lisinopril AdvReac Unknown Cough Verified 09/21/21 17:20 Review of Systems Review of Systems: Yes Unobtainable due to mental condition PMFSH Past Medical History Medical History Anxiety Ramos's palsy Cervical cancer CHF (congestive heart failure) Cognitive impairment Congestive heart failure DVT (deep venous thrombosis) GERD (gastroesophageal reflux disease) Hospital discharge follow-up Hydronephrosis Hypercholesterolemia Hypertension Hypothyroidism Lumbar degenerative disc disease Obstructive uropathy Osteoarthritis Paroxysmal atrial fibrillation Peripheral vascular disease Pyuria Vitamin D deficiency Surgical History H/O elbow surgery History of bladder surgery History of cholecystectomy Family History Family History Father Hypertension Stroke CVD (cardiovascular disease) Mother Hypoglycemia Social History Social History Household Members: Family Household Members Other:: Daughter lives on second floor Housing: Unknown / Unable to assess Do you presently have visiting nurse or other home services: No Unable to assess alcohol history related to: Unknown Alcohol intake: never Patient Tobacco Use Status: Former Tobacco user Tobacco use type: Cigarette e-Cigarette/Vaping Use: Never Used Second Hand Smoke Exposure: No Advance Directives Date on File: 09/08/20 service: No Current occupational status: disabled Cognitive needs: Yes Hearing needs: Yes Vision needs: Yes Physical Exam Vital Signs: Vital Signs: Last Vital Signs Temp 98.1 F 09/21/21 17:20 Pulse 106 H 09/21/21 17:20 Resp 18 09/21/21 17:20 BP 101/71 09/21/21 17:20 Pulse Ox 96 09/21/21 17:20 BMI result Body Mass Index 23.2 Vital signs have been reviewed as appeared to be correct. Blood pressure normal. Heart rate normal. Respiration rate normal. Temperature normal. Oxygen saturation normal. Appearance: Alert. Oriented X3. No acute distress. Head: Normal external exam. Normocephalic. Atraumatic. No Little signs noted. No raccoon eyes noted Eyes: PERRLA. EOMI. Conjunctiva and sclera normal. Eyelids normal. ENT: TM's Normal. Pharynx normal. Uvula midline. Moist mucous membranes. No trismus noted. No drooling noted. No muffled voice noted. Neck: Normal inspection. Neck supple. FROM. No adenopathy. Thyroid Normal. No meningeal signs. No neck mass noted. CVS: Normal heart rate and rhythm. Heart sound normal. No murmurs noted. Pulses normal throughout. Respiratory: No respiratory distress. Painless inspiration. Breath sounds normal. No wheezes/rales/rhonchi noted. Chest nontender. No accessory muscle usage noted or decreased air movement noted. Abdomen: Soft and nontender. Bowel sounds normal in all 4 quadrants. No distention noted. No organomegaly noted. No visible injury noted. Back: No CVA tenderness. Full range of motion noted. Skin: Skin warm and dry. Normal skin color. Normal skin turgor. No rash es/lesions/lacerations noted. Extremities: No lower extremity edema. Extremities exhibit normal range of motion. Extremities nontender. Neuro: Oriented X 3. 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 No motor deficit. No sensory deficit. Reflexes normal. Course Course Course Narrative: Assessment and plan. 86-year-old female was recently discharged from the hospital, family is concerned of deconditioning and failure to thrive. Patient will need PT evaluation and case management for placement. Will start physician observation now at 21;30. Discharge Plan Discharge Clinical Impression: Fall, Recurrent falls, Dementia Prescriptions: No Action (DME) wheelchair See Rx Instructions .Route .MEDSUPPLY Qty: 1 0RF Rx Instructions: As directed (DME) pull ups medium See Rx Instructions .Route .MEDSUPPLY Qty: 180 11RF Rx Instructions: As directed metoprolol tartrate 25 mg tablet 25 mg PO BID 30 Days Qty: 180 0RF Protocol: Hold for SBP/HR < HOLD for SBP < : 90 HOLD for HR < : 60 levothyroxine 75 mcg tablet 75 mcg PO DAILY@0600 30 Days Qty: 30 2RF trazodone 100 mg tablet 100 mg PO BEDTIME 30 Days Qty: 90 0RF furosemide 40 mg Tablet 20 mg PO DAILY@1200 0RF Hold Instructions: Resume on 09/24/21. follow up with pcp for when to restart nystatin 100,000 unit/gram ointment 1 appl topical TID 0RF nystatin [Nystop] 100,000 unit/gram powder 1 appl topical BID 0RF furosemide [Lasix] 40 mg tablet 40 mg PO DAILY 0RF Hold Instructions: Resume on 09/24/21. follow up with pcp amiodarone 200 mg Tablet 200 mg PO BID Qty: 60 0RF quetiapine [Seroquel] 25 mg tablet 12.5 mg PO DAILY Qty: 90 0RF
[2021-09-21 21:36] VITALS: BP 117/81; PULSE 103; RESP 16; TEMP 36.7; O2SAT 97
[2021-09-21] MEDS: Acetaminophen 325 MG TABLET 650 MG PO (22:56)
[2021-09-21 23:01] VITALS: BP 140/83; PULSE 75; RESP 16; TEMP 37.1; O2SAT 95
[2021-09-22] VITALS (8 sets, daily range): BP systolic 90–131; BP diastolic 58–93; PULSE 11–127; RESP 14–20; TEMP 36.6–37.1; O2SAT 97–100
--- NOTE | 2021-09-22 01:13 | PC.NURSE ---
This RN updated pt daughter about POC, pt needs PT and case management consult.
--- NOTE | 2021-09-22 01:51 | PC.NURSE ---
pt requesting medication for back pain, aware.
[2021-09-22] MEDS: Acetaminophen 325 MG TABLET 975 MG PO (02:25)
[2021-09-22] MEDS: Lidocaine 4 % Patch ADH..PATCH 1 PATCH TRANSDERMA (02:29)
--- NOTE | 2021-09-22 08:46 | PC.NURSE ---
Pt resting in hospital bed. Daughter at bedside. No complaints at this time. Xray results pending.
[2021-09-22 09:26] LABS: Influenza A PCR NEGATIVE (Negative); Influenza B PCR NEGATIVE (Negative); Resp Syncy Virus RNA Qual PCR NEGATIVE (Negative); SARS COV2 PCR INHOUSE NEGATIVE (Negative)
--- NOTE | 2021-09-22 11:23 | PHA.MEDREC ---
Pharmacy Consult ? Medication Reconciliation Pharmacy has completed the medication reconciliation. Patient recently discharge 09/20/21. Lasix currently on hold per last visit and to follow-up with PCP for restart therefore I left unconfirmed on claim history as it will be restart eventually. Minda Gaxiola, PharmD
[2021-09-22] MEDS: Acetaminophen 325 MG TABLET PO (11:33)
--- NOTE | 2021-09-22 11:38 | PC.NURSE ---
Pt c/o back pain. Dr. Elias made aware. PO tylenol ordered and given. Daughter remains at bedside.
--- NOTE | 2021-09-22 13:12 | MHC.CM.ED ---
Received case management consult overnight. Patient was recently discharged from [facility]. Patient was at her day program and fell. Work up essentially negative. Physical therapy eval completed. Short term rehab is recommended. Patient and daughter well known to CM. Patient is primarily Georgian speaking. HCP verified to be on file. Patient received 2 Moderna vaccines but no booster. Patient has been to [facility] and [facility] in the past. Daughter does not want patient to return to either of those facilities. List of facilities provided from [facility]. [facility]. Referral made tin [facility]. Continue to monitor for d/c needs.
--- NOTE | 2021-09-22 15:24 | PC.NURSE ---
Pt moved to a hospital bed for comfort. Per Case management, pt is to be here overnight again.
--- NOTE | 2021-09-22 20:00 | PC.NURSE ---
Took report from Billy to assume cqare of Pt, Pt resting, NAD, call light in reach, this RN continues to monitor.
[2021-09-22] MEDS: Acetaminophen 325 MG TABLET 650 MG PO (20:35)
--- NOTE | 2021-09-22 20:45 | PC.NURSE ---
Float RN to bedside to medicate pt with PRN meds. Daughter at bedside assisting with interpretation needs and inquired about pt's lidocaine patch. Daughter reports lidocaine patch was applied at 0230 this morning and only are good x12 hours with no one removing the previous patch and/or applying a new one. The daughter was noted to remove the lidocaine patch placed on her middle back. The daughter also inquired as to whether or not the pt has received any of her regularly scheduled meds including bp meds and anxiety medication. fountain jerk aware and will place order for pharmacy med rec completion to ensure the pt receives her routine medication while in OBS status. This RN will discuss additional lidocaine patch order with MD per daughter request to assist with management of back pain.
[2021-09-22] MEDS: Amiodarone HCL 200 MG TABLET PO (23:15)
[2021-09-22] MEDS: Metoprolol Tartrate 25 MG TABLET PO (23:15)
[2021-09-22] MEDS: traZODone HCL 100 MG TABLET PO (23:16)
[2021-09-23 02:27] VITALS: BP 106/70; PULSE 110; RESP 17; O2SAT 94
[2021-09-23] MEDS: Levothyroxine Sodium 75 MCG TABLET PO (05:30)
[2021-09-23] MEDS: QUEtiapine Fumarate 25 MG TABLET 12.5 MG PO (07:33)
[2021-09-23] MEDS: Metoprolol Tartrate 25 MG TABLET PO (07:33)
[2021-09-23] MEDS: Nystatin Ointment 15 GM TUBE 1 APPL TOPICAL (07:33)
[2021-09-23] MEDS: Amiodarone HCL 200 MG TABLET PO (07:33)
[2021-09-23] MEDS: Lidocaine 4 % Patch ADH..PATCH 1 PATCH TRANSDERMA (07:35)
[2021-09-23 07:49] VITALS: BP 130/90; PULSE 115; RESP 14
--- NOTE | 2021-09-23 09:16 | MHC.CM.ED ---
[facility] not able to offer a bed. Referral broadcasted in [id number]. [facility] able to offer a bed. Patient and daughter accept bed. Patient can leave at 1pm. [facility] with chart. Patient, daughter Fan Fuller RN and Fernanda GODOY aware. Continue to monitor for d/c needs.
== END 2021-09-23 13:18 | disposition skilled nursing facility (03) ==
PROVIDERS: Emergency Provider Emergency Medicine; PCP Internal Medicine
DX: R62.7 Adult failure to thrive (principal); F03.90 Unspecified dementia, unspecified severity, without behavioral disturbance, psychotic disturbance, mood disturbance, and anxiety; M54.6 Pain in thoracic spine; M25.562 Pain in left knee; M25.561 Pain in right knee; Z91.81 History of falling; Z20.822 Contact with and (suspected) exposure to COVID-19; I11.0 Hypertensive heart disease with heart failure; I50.9 Heart failure, unspecified; E78.5 Hyperlipidemia, unspecified; I48.0 Paroxysmal atrial fibrillation; Z86.718 Personal history of other venous thrombosis and embolism
CPT/HCPCS: 0241U; 72072; 73564; 97162; 99284; 99285

== ENCOUNTER → 2021-10-23 09:31 | Outpatient (BNVA) | payer MEDICARE, MEDICAID, SELFPAY | PROVIDERS: PCP Internal Medicine | DX: N39.0 Urinary tract infection, site not specified (principal) | CPT/HCPCS: 99202 ==

== ENCOUNTER 2021-11-02 09:47 | Outpatient (REF) | payer MEDICARE, MEDICAID, SELFPAY ==
[2021-11-02 10:07] LABS: MANUAL DIFF FLAG NO
[2021-11-02 11:17] LABS: Basophils Percent Auto 0.4 % (0-2); Eosinophils Absolute Auto 0.1 X10*3/uL (0.0-0.4); Eosinophils Percent Auto 1.7 % (0-4); Hematocrit 36.6 % (37.0-47.0); Hemoglobin 11.9 g/dl (12.0-16.0); Imm Gran Abs Auto 0.02 X10*3/uL (0.00-0.03); Imm Gran Pct Auto 0.4 % (0.0-0.4); Lymphocytes Absolute Auto 1.3 X10*3/uL (1.2-4.9); Lymphocytes Percent Auto 24.4 % (20-40); Mean Corpuscular HGB Conc 32.5 g/dl (31.0-35.0); Mean Corpuscular Hemoglobin 29.9 pg (27.0-33.0); Mean Platelet Volume 9.7 fL (9.4-12.3); Monocytes Absolute Auto 0.3 X10*3/uL (0.1-1.2); Monocytes Percent Auto 6.5 % (2-11); Neutrophils Absolute Auto 3.5 x10*3/uL (2.0-8.3); Neutrophils Percent Auto 66.6 % (45-73); Platelet Count 295 X10*3/uL (160-400); Red Blood Count 3.98 X10*6/uL (4.20-5.50); Red Cell Distribution Width 16.9 % (11.0-16.0); White Blood Count 5.2 X10*3/uL (4.8-10.8)
[2021-11-02 11:28] LABS: Appearance Urine CLOUDY; Color Urine YELLOW; Glucose Urine UA NEG (NEG); Leukocyte Esterase Urine 2+ (NEG); Nitrite Urine NEG (NEG); UACC Culture Trigger YES; Urine Blood 3+ (NEG); Urine Ketones NEG (NEG); Urine Protein 2+ MG/DL (NEG-TRACE)
[2021-11-02 11:48] LABS: B Type Natriuretic Peptide 363 pg/mL (<100)
[2021-11-02 11:52] LABS: Alanine Aminotransferase 19 U/L (0-31); Albumin Level 3.5 g/dL (3.5-5.0); Alkaline Phosphatase 153 U/L (39-117); Anion Gap 12 (12-20); Aspartate Amino Transferase 23 U/L (5-31); Bilirubin Total 0.3 mg/dL (0.0-1.0); Blood Urea Nitrogen 23 mg/dL (9-16); Calcium 8.4 mg/dL (8.4-10.2); Carbon Dioxide 25 mmol/L (22-29); Chloride 108 mmol/L (96-108); Estimated Glomerular Filt Rate 29; Glucose Random 97 mg/dL (60-115); Potassium 4.8 mmol/L (3.3-5.1); Sodium 140 mmol/L (135-145); Total Protein 7.2 g/dL (6.5-8.0)
[2021-11-02 12:05] LABS: Free T4 (Free Thyroxine) 0.99 ng/dL (0.71-1.85); Thyroid Stimulating Hormone 4.29 uIU/mL (0.32-4.0)
[2021-11-02 12:25] LABS: WBC Clumps Urine NOTED; WBC Urine TNTC /HPF (0-4)
[2021-11-02 12:26] LABS: Amorphous Sediment Urine 1+ /LPF; Bacteria Urine 1+ /LPF; Squamous Epithelial Cell Urine TRACE /LPF
== END 2021-11-02 09:48 | disposition home or self-care (01) ==
LOC: HO.LAB 09:47
PROVIDERS: PCP Internal Medicine; Visit Provider Internal Medicine
DX: I50.9 Heart failure, unspecified (principal)
CPT/HCPCS: 36415; 80053; 81001; 83880; 84439; 84443; 85025; 87086; 87088

== ENCOUNTER 2021-11-18 13:05 | Emergency (ER) | payer MEDICARE, MEDICAID, SELFPAY ==
--- NOTE | ~2021-11-18 | CT_ITS ---
EXAM: CT scan of the head and cervical spine. INDICATION: Reason for Exam fall TECHNIQUE: A noncontrast CT scan was performed from the skull base to the vertex. A noncontrast CT scan of the cervical spine was performed from the base of the skull through T1 at 2.5 mm and 1.25 mm collimation. Coronal and sagittal reformats were obtained at the acquisition workstation. This CT examination was performed using dose optimization techniques as appropriate, variously including the following: *Automated exposure control *Adjustment of mA and/or kV according to patient size (this includes techniques or standardized protocols for targeted exams where dose is matched to indication/reason for exam; i.e. extremities or head) *Use of iterative reconstruction technique DLP: 270 mGy-cm COMPARISON: None FINDINGS: Head: There is no evidence of acute intracranial hemorrhage or territorial infarction. Lopez-white matter differentiation is preserved. No abnormal mass effect or midline shift. No extra-axial fluid collections. No abnormal attenuation is demonstrated within the brain parenchyma. Scattered periventricular and deep white matter hypodensities consistent with microangiopathy. The ventricles and sulcal spaces are proportional without hydrocephalus. Proportional prominence of the ventricles and sulcal spaces. No acute osseous or soft tissue abnormalities. The mastoid air cells and visualized portions of the paranasal sinuses are well aerated. Cervical Spine: The atlantooccipital and atlantoaxial articulations remain well aligned. Straightening of the normal cervical lordosis. Otherwise, there is anatomic alignment of the vertebral bodies and posterior elements. No evidence of acute fracture or subluxation. There is [id number] diffuse degenerative disc space narrowing. Posterior longitudinal ligament ossification at the C3-C4 level noted. Posterior elements appear intact.. There is no prevertebral soft tissue swelling. The thyroid gland and remaining cervical soft tissues are normal in appearance. The lung apices notable for extensive groundglass opacities without any discrete lesion. Motion degradation limits assessment. CT/CT cervical spine wo con IMPRESSION: No acute intracranial pathology. Moderately advanced spondylosis throughout the cervical spine without any fracture or subluxation.
--- NOTE | ~2021-11-18 | CT_ITS ---
EXAM: CT scan of the head and cervical spine. INDICATION: Reason for Exam fall TECHNIQUE: A noncontrast CT scan was performed from the skull base to the vertex. A noncontrast CT scan of the cervical spine was performed from the base of the skull through T1 at 2.5 mm and 1.25 mm collimation. Coronal and sagittal reformats were obtained at the acquisition workstation. This CT examination was performed using dose optimization techniques as appropriate, variously including the following: *Automated exposure control *Adjustment of mA and/or kV according to patient size (this includes techniques or standardized protocols for targeted exams where dose is matched to indication/reason for exam; i.e. extremities or head) *Use of iterative reconstruction technique DLP: 270 mGy-cm COMPARISON: None FINDINGS: Head: There is no evidence of acute intracranial hemorrhage or territorial infarction. Lopez-white matter differentiation is preserved. No abnormal mass effect or midline shift. No extra-axial fluid collections. No abnormal attenuation is demonstrated within the brain parenchyma. Scattered periventricular and deep white matter hypodensities consistent with microangiopathy. The ventricles and sulcal spaces are proportional without hydrocephalus. Proportional prominence of the ventricles and sulcal spaces. No acute osseous or soft tissue abnormalities. The mastoid air cells and visualized portions of the paranasal sinuses are well aerated. Cervical Spine: The atlantooccipital and atlantoaxial articulations remain well aligned. Straightening of the normal cervical lordosis. Otherwise, there is anatomic alignment of the vertebral bodies and posterior elements. No evidence of acute fracture or subluxation. There is [id number] diffuse degenerative disc space narrowing. Posterior longitudinal ligament ossification at the C3-C4 level noted. Posterior elements appear intact.. There is no prevertebral soft tissue swelling. The thyroid gland and remaining cervical soft tissues are normal in appearance. The lung apices notable for extensive groundglass opacities without any discrete lesion. Motion degradation limits assessment. CT/CT head/brain wo con IMPRESSION: No acute intracranial pathology. Moderately advanced spondylosis throughout the cervical spine without any fracture or subluxation.
[2021-11-18 13:33] VITALS: BP 140/81; PULSE 108; RESP 16; TEMP 36.8; O2SAT 96; BMI 22.2
--- NOTE | 2021-11-18 13:36 | ED_ITS ---
HPI - Fall General Chief Complaint: Fall Stated Complaint: fall Time Seen by Provider: 11/18/21 13:18 Source: patient and EMS Mode of arrival: EMS History of Present Illness HPI Narrative: 86-year-old female with a past medical history of disorientation, dementia, Ramos's palsy, AFib not anticoagulated, CHF, CKD, encephalopathy, UTI currently on amoxicillin, presenting to ED via EMS s/p witnessed fall at SNF [facility]. Per report patient with increased agitation hitting staff, lost balance and had witnessed fall backwards, no reported injuries, no head trauma or LOC. patient reports mild back pain at present, denies other complaints. History limited as patient is A&O x1 (which appears baseline) MD complaint: fall Onset (ago): minute(s) Fall from: standing Fall witnessed: no and yes, by living facility staff Place fall occurred: shelter/SNF Related Data Home Medications Medication Instructions Recorded Confirmed Saccharomyces boulardii 250 mg 250 mg PO BID 11/18/21 11/18/21 capsule acetaminophen 325 mg tablet 650 mg PO Q4H PRN pain or fever 11/18/21 11/18/21 amiodarone 200 mg tablet 200 mg PO DAILY 11/18/21 11/18/21 melatonin 3 mg tablet 6 mg PO BEDTIME 11/18/21 11/18/21 trazodone 50 mg tablet 25 mg PO DAILY PRN Agitation 11/18/21 11/18/21 trazodone 50 mg tablet 50 mg PO BEDTIME 11/18/21 11/18/21 Previous Rx's Medication Instructions Recorded wheelchair #1 ea 08/24/20 pull ups medium #180 ea 01/03/21 levothyroxine 75 mcg tablet 75 mcg PO DAILY@0600 90 days #90 11/05/21 tabs Allergies Allergy/AdvReac Type Severity Reaction Status Date / Time amlodipine [From [facility]] Allergy Intermediate HIVES Verified 10/23/21 10:07 aspirin [ASA] Allergy Intermediate HIVES Verified 10/23/21 10:07 robert [ROBERT] Allergy Intermediate HIVES Verified 10/23/21 10:07 hydrochlorothiazide Allergy Unknown Hives Verified 10/23/21 10:07 gabapentin AdvReac Unknown dizziness Verified 10/23/21 10:07 lisinopril AdvReac Unknown Cough Verified 10/23/21 10:07 Review of Systems Review of Systems: Constitutional: No Fever Musculoskeletal: + joint pain Skin: No Skin Lesions, No rash Neuro: No Head strike Psych: +Agitation ROS limited from patient's baseline mental status Yes all other systems are reviewed and are negative Constitutional: Constitutional: Reports as per HPI Neurologic: Denies Abnormal speech present [facility] Past Medical History Attestation statement: The following information was validated with the patient. Medical History Anxiety Ramos's palsy Cervical cancer CHF (congestive heart failure) Cognitive impairment Congestive heart failure DVT (deep venous thrombosis) GERD (gastroesophageal reflux disease) Hospital discharge follow-up Hydronephrosis Hypercholesterolemia Hypertension Hypothyroidism Lumbar degenerative disc disease Obstructive uropathy Osteoarthritis Paroxysmal atrial fibrillation Peripheral vascular disease Pyuria Vitamin D deficiency Surgical History H/O elbow surgery History of bladder surgery History of cholecystectomy Family History Family History Father Hypertension Stroke CVD (cardiovascular disease) Mother Hypoglycemia Social History Social History Household Members: Family Household Members Other:: Daughter lives on second floor Housing: Unknown / Unable to assess Do you presently have visiting nurse or other home services: No Unable to assess alcohol history related to: Unknown Alcohol intake: unknown Patient Tobacco Use Status: Former Tobacco user Tobacco use type: Cigarette e-Cigarette/Vaping Use: Never Used Second Hand Smoke Exposure: No Advance Directives: Yes Advance Directives on File: Yes Advance Directives Date on File: 09/08/20 service: No Current occupational status: disabled Cognitive needs: Yes Hearing needs: Yes Vision needs: Yes Physical Exam Vital Signs: Vital Signs: Last Vital Signs Temp 98.1 F 11/18/21 16:21 Pulse 114 H 11/18/21 16:21 Resp 16 11/18/21 16:21 BP 146/97 H 11/18/21 16:21 Pulse Ox 95 11/18/21 16:21 O2 Del Method 11/18/21 16:21 BMI result Body Mass Index 22.2 Const: General: cooperative, healthy appearing and no acute distress Orientation/consciousness: oriented to person HEENT: Other: + left-sided facial paralysis, partially sparing R forehead Head: Yes normal to inspection, Yes atraumatic, No Little's sign and No raccoon eyes Ears: hearing grossly normal bilaterally General nose exam: Normal external nose present Face and sinus: Yes normal facial exam Throat: Yes posterior oropharynx normal Eyes: General: appearance normal, both eyes and all related structures Pupils: Equal, round and reactive pupils present EOM: EOMs intact bilaterally Neck: Other: no midline cervical spinous tenderness Neck: Yes normal visual inspection and Yes no meningeal signs Chest: Chest palpation & inspection: normal inspection of the chest, no crepitus and no tenderness Resp: Effort & Inspection: normal respiratory effort and no respiratory distress Auscultation: clear to auscultation bilaterally Cardio: Rate: regular rate Heart sounds: S1 normal heart sound present and S2 normal heart sound present GI: Inspection: Yes normal to inspection Palpation (GI): Soft to palpation, nontender, no guarding and not rigid Back/Spine/Pelvis: Other: No midline thoracic/lumbar spinous tenderness/step-off or deformity Skin: Rashes: no rashes Wounds: no wounds Neuro: General: oriented to person, tone normal and no meningeal signs Cranial nerves: Yes Equal, round and reactive pupils present and Yes Midline tongue present Speech: No Abnormal speech present Motor exam (neuro): 5/5 motor strength present throughout Extrem: General: Yes normal to inspection, Yes full ROM and Yes normal exam except as noted Course Course Course Narrative: 1536-- CT head/brain wo con/CT cervical spine wo con IMPRESSION: No acute intracranial pathology. Moderately advanced spondylosis throughout the cervical spine without any fracture or subluxation. -patient with mild episodes of agitation in the ED, however redirectable > UA infected. Patient was prescribed 3 days of amoxicillin on 11/15 > will prescribe Ceftin 250 b.i.d. daily x7 days. Low suspicion for severe sepsis, tachycardia likely from patient's agitation/ anxiety and chronic persistent Atrial flutter with RVR. Per cardiology notes patient currently on amiodarone for rate control, does refuse medications/have poor compliance. > no evidence of heart failure at this time. - Called [facility] for patient's return however they are refusing patient back at their facility until behaviors can be controlled/psychiatric evaluation for medications due to patient's aggressive behaviors. Per SNF patient combative, throwing urine, difficult to control. Has been at [facility] for 2 days -1930--ED care transferred to [facility] Michael pending CM consult and Psych consult MDM - Fall MDM Narrative Medical decision making narrative: 86-year-old female with a past medical history of disorientation, dementia, AFib not anticoagulated, CHF, CKD, encephalopathy, UTI currently on amoxicillin, presenting to ED via EMS s/p witnessed fall at SNF [employer]. Per report patient with increased agitation hitting staff, lost balance and had witnessed fall backwards, no reported injuries, no head trauma or LOC. on exam mildly tachycardic, NAD, nontoxic appearing, left-sided facial paralysis noted mildly sparing forehead (suspicious for documented previous Ramos's palsy). no other focal neuro deficits. No midline spinous tenderness. Patient cooperative with staff plan: Head/ C-spine CT, UA (As patient currently being treated for UTI) Medical Records Attestation: I reviewed the patient's medical records. Lab Data Attestation: I reviewed the patient's lab results. Labs: Lab Results 11/18/21 Range/Units 16:36 Urine Color YELLOW Urine Appearance CLOUDY Urine pH 6.5 (5.0-8.0) Ur Specific [place] 1.015 (1.005-1.025) Urine Protein 2+ H (NEG-TRACE) MG/DL Urine Glucose (UA) NEG (NEG) MG/DL Urine Ketones NEG (NEG) MG/DL Urine Blood 3+ H (NEG) Urine Nitrite NEG (NEG) Ur Leukocyte Esterase 3+ H (NEG) Urine RBC 15-29 H (0) /HPF Urine WBC 15-29 H (0-4) /HPF Urine WBC Clumps NOTED Ur Squamous Epith Cells 1+ /LPF Urine Bacteria 2+ /LPF Urine Mucus 2+ /LPF Discharge Plan Discharge Clinical Impression: Acute UTI, Fall, Combative behavior Patient Disposition: Still a Patient Prescriptions: No [facility] (DME) wheelchair See Rx Instructions .Route .MEDSUPPLY Qty: 1 0RF Rx Instructions: As directed (DME) pull ups medium See Rx Instructions .Route .MEDSUPPLY Qty: 180 11RF Rx Instructions: As directed levothyroxine 75 mcg tablet 75 mcg PO DAILY@0600 90 Days Qty: 90 2RF acetaminophen 325 mg Tablet 650 mg PO Q4H PRN (Reason: pain or fever) trazodone 50 mg Tablet 50 mg PO BEDTIME melatonin 3 mg Tablet 6 mg PO BEDTIME Saccharomyces boulardii 250 mg Capsule 250 mg PO BID Rx Instructions: X 14 DAYS, FINISH 11/29/2021 amiodarone 200 mg tablet 200 mg PO DAILY trazodone 50 mg Tablet 25 mg PO DAILY PRN (Reason: Agitation)
[2021-11-18 16:21] VITALS: BP 146/97; PULSE 114; RESP 16; TEMP 36.7; O2SAT 95
[2021-11-18 16:53] LABS: Appearance Urine CLOUDY; Color Urine YELLOW; Glucose Urine UA NEG (NEG); Leukocyte Esterase Urine 3+ (NEG); Nitrite Urine NEG (NEG); PH 6.5 (5.0-8.0); Specific Gravity - Urine 1.015 (1.005-1.025); UACC Culture Trigger YES; Urine Blood 3+ (NEG); Urine Ketones NEG (NEG); Urine Protein 2+ MG/DL (NEG-TRACE)
[2021-11-18 16:59] LABS: Bacteria Urine 2+ /LPF; Mucus Urine 2+ /LPF; Squamous Epithelial Cell Urine 1+ /LPF; WBC Clumps Urine NOTED
--- NOTE | 2021-11-18 18:45 | PHA.MEDREC ---
Pharmacy Consult ? Medication Reconciliation Pharmacy has completed the medication reconciliation. Patient came from [facility] with medication list. Patient just finished 3 days of amoxicillin for UTI on 11/18/21. Minda Gaxiola, PharmD
[2021-11-18 19:23] VITALS: BP 144/90; PULSE 123; RESP 16; O2SAT 96
--- NOTE | 2021-11-18 19:27 | ECG_ITS ---
Test Reason : AMS Blood Pressure : / mmHG Vent. Rate : 114 BPM Atrial Rate : 000 BPM P-R Int : 000 ms QRS Dur : 102 ms QT Int : 364 ms P-R-T Axes : 000 -37 129 degrees QTc Int : 501 ms Atrial fibrillation with rapid ventricular response Left axis deviation Minimal voltage criteria for LVH, may be normal variant ( Rafael product ) T wave abnormality, consider lateral ischemia Abnormal ECG When compared with ECG of 18-SEP-2021 10:49, No significant changes seen Referred By: Jasmyn Aguilar Electronically Signed By:ROMEO JAMES
[2021-11-18] MEDS: OLANZapine 5 MG TABLET PO (20:52)
[2021-11-18] MEDS: Amiodarone HCL 200 MG TABLET PO (20:52)
[2021-11-18] MEDS: traZODone HCL 50 MG TABLET PO (20:52)
[2021-11-18] MEDS: Melatonin 3 MG TABLET 6 MG PO (20:52)
[2021-11-18 22:06] LABS: COVID-19 Test Negative (Negative)
[2021-11-19 04:37] VITALS: BP 128/86; PULSE 110; RESP 18; O2SAT 96
--- NOTE | 2021-11-19 05:49 | PC.NURSE ---
pt refusing meds at this time/.
[2021-11-19 08:20] VITALS: BP 138/86; PULSE 103; RESP 18
[2021-11-19 10:03] VITALS: BP 144/82; PULSE 99; RESP 18; O2SAT 96
[2021-11-19] MEDS: Amiodarone HCL 200 MG TABLET PO ×2 (10:57→19:56)
[2021-11-19 12:03] VITALS: BP 144/100; PULSE 106; RESP 18; O2SAT 94
[2021-11-19 14:15] VITALS: BP 146/89; PULSE 108; RESP 18; O2SAT 94
--- NOTE | 2021-11-19 14:21 | MHC.CM.ED ---
Pt presented to ED from [facility] with falls and combative behavior. Per review of PMH, pt has dementia with documented behaviors as well as a hx of reoccuring UTI's. Pt with + UA : no growth from Cx to date: started on po ATB. Call placed to dtr/HCP Alina who states pt is dependent on staff for ADL's and care needs. She is ambulatory and very memory impaired. Updates sent to [facility] to ? on returning to facility. Pt has an active psych eval order however, it seems pt's behaviors are long standing d/t dementia -possibly magnified by infection and not d/t an acute psychiatric issue. ED CM to follow for return to facility.
[2021-11-19] MEDS: OLANZapine 5 MG TABLET PO (16:56)
--- NOTE | 2021-11-19 17:24 | PC.NURSE ---
patient with increased agitation- scratched and pinched multiple staff. patient assisted to commode, small bowel movement- continues to be agitated. getting in and out of bed and scratching, kicking at staff. patient offered snacks and drink, continues to refuse. zyprexa ordered by JAYNE.
--- NOTE | 2021-11-19 18:07 | P.CNPS_ITS ---
History of Present Illness Date of Service: 11/19/21 Chief Complaint: fall, UTI, Combative behavioral sx Reason for Consult: Medication consult Requesting physician: Jasmyn Aguilar Discussed with referring provider: No (care team) Sources of Information: patient interviewed and chart reviewed HPI Narrative: 86 yo female, SNF resident to ER s/p fall with agitation, hitting staff. Pt lost her balance and fell backward without injury. Currently with UTI. By hx combative sx, dementia, encephalopathy and increase in agitation. SNF team reports she has been recently combative, has thrown urine and has been difficult to maintain safety. Psychotropics given include Trazodone 50 mg hs and 25 mg daily prn. Team rx Ceftin 250 mg bid, to end 11/29/21. Pt calm and comfortable in bed-confused, talked about [place] and her time there-no agitation noted at that time-asking for fluids-provided, remained calm, content, no distress noted. Medical Evaluation Reviewed: Yes Review of Systems Reports behavioral changes and Reports confusion Psychiatric: Reports behavioral changes, Reports confusion, Reports difficulty concentrating, Reports irritability and Reports mood swings [facility] Medical History Anxiety Ramos's palsy Cervical cancer CHF (congestive heart failure) Cognitive impairment Congestive heart failure DVT (deep venous thrombosis) GERD (gastroesophageal reflux disease) Hospital discharge follow-up Hydronephrosis Hypercholesterolemia Hypertension Hypothyroidism Lumbar degenerative disc disease Obstructive uropathy Osteoarthritis Paroxysmal atrial fibrillation Peripheral vascular disease Pyuria Vitamin D deficiency Surgical History H/O elbow surgery History of bladder surgery History of cholecystectomy Diagnostics Vital Signs (24Hr): Vital Signs - 24 hr 11/18/21 19:23 11/19/21 04:37 11/19/21 08:20 Pulse Rate 123 H 110 H 103 H Respiratory Rate 16 18 18 Blood Pressure 144/90 H 128/86 138/86 Pulse Oximetry 96 96 Oxygen Delivery Method Room Air Room Air Room Air 11/19/21 10:03 11/19/21 12:03 11/19/21 14:15 Pulse Rate 99 106 H 108 H Respiratory Rate 18 18 18 Blood Pressure 144/82 H 144/100 H 146/89 H Pulse Oximetry 96 94 94 Oxygen Delivery Method Room Air Room Air Room Air BMI result Body Mass Index 22.2 Labs Labs: Laboratory Results - last 48 hr 11/18/21 11/18/21 16:36 21:44 Urine Color YELLOW Urine Appearance CLOUDY Urine pH 6.5 Ur Specific [place] 1.015 Urine Protein 2+ H Urine Glucose (UA) NEG Urine Ketones NEG Urine Blood 3+ H Urine Nitrite NEG Ur Leukocyte Esterase 3+ H Urine RBC 15-29 H Urine WBC 15-29 H Urine WBC Clumps NOTED Ur Squamous Epith Cells 1+ Urine Bacteria 2+ Urine Mucus 2+ COVID-19 ([place]) Negative COVID-19 Clin Com See Note Imaging Radiology Impressions: ITS Impressions Cervical Spine CT 11/18/21 14:04 IMPRESSION: No acute intracranial pathology. Moderately advanced spondylosis throughout the cervical spine without any fracture or subluxation. Head CT 11/18/21 14:05 IMPRESSION: No acute intracranial pathology. Moderately advanced spondylosis throughout the cervical spine without any fracture or subluxation. Mental Status Exam Mental Status Exam Patient Appearance: Appropriate Patient Orientation: Person Level of Consciousness: Awake, Alert and Follows Commands Patient Behavior: Appropriate, Talkative, Cooperative, Distractible and Good Eye Contact Mood Description: Calm Affect Description: Calm Patient Cognition Impaired: Yes Ability to Follow Directions: Fair Speech Pattern: Spontaneous Speech and Soft-Spoken Memory Description: Remote Impaired, Immediate Impaired, Episodic Impaired, Recent Impaired, Working Impaired and Semantic Impaired Hallucinations: None (no evidence of sx) Delusions: Not Present (no current evidence of sx) Thought Process: Confusion Thought Content: positive for Slowed Thinking and positive for Tangential Depressive Symptoms: Increased Irritability, Increased Fatigue and Difficulty Concentrating Judgement: Poor Medications Medications Current Medications Acetaminophen (Acetaminophen 325 Mg Tablet) 650 mg PO Q4H PRN PRN Reason: pain or fever Amiodarone HCl (Amiodarone Hcl 200 Mg Tablet) 200 mg PO BID [facility] Last Admin: 11/19/21 10:57 Dose: 200 mg Cefuroxime Axetil (Cefuroxime Axetil 250 Mg Tablet) 250 mg PO Q12H [facility] Stop: 11/25/21 19:59 Last Admin: 11/19/21 10:57 Dose: 250 mg Levothyroxine Sodium (Levothyroxine Sodium 75 Mcg Tablet) 75 mcg PO DAILY@0600 [facility] Last Admin: 11/19/21 05:48 Dose: Not Given Melatonin (Melatonin 3 Mg Tablet) 6 mg PO BEDTIME [facility] Last Admin: 11/18/21 20:52 Dose: 6 mg Pharmacy Consult (Consult Rx Perform Med Rec) 1 each MISCELLANE ONCE PRN PRN Reason: Consult order Trazodone HCl (Trazodone Hcl 25 Mg Halftab) 25 mg PO DAILY PRN PRN Reason: Agitation Trazodone HCl (Trazodone Hcl 50 Mg Tablet) 50 mg PO BEDTIME [facility] Last Admin: 11/18/21 20:52 Dose: 50 mg Allergies Allergies Allergy/AdvReac Type Severity Reaction Status Date / Time amlodipine [From [facility]] Allergy Intermediate HIVES Verified 10/23/21 10:07 aspirin [ASA] Allergy Intermediate HIVES Verified 10/23/21 10:07 robert [ROBERT] Allergy Intermediate HIVES Verified 10/23/21 10:07 hydrochlorothiazide Allergy Unknown Hives Verified 10/23/21 10:07 gabapentin AdvReac Unknown dizziness Verified 10/23/21 10:07 lisinopril AdvReac Unknown Cough Verified 10/23/21 10:07 Assessment & Plan Assessment & Plan (1) Acute UTI: Status: Acute Code(s): N39.0 - Urinary tract infection, site not specified Assessment and Plan: Ceftin 250 mg bid po- to be completed 11/29/21. (2) Combative behavior: Status: Acute Code(s): R46.89 - Other symptoms and signs involving appearance and behavior (3) Dementia: Status: Acute Code(s): F03.90 - Unspecified dementia without behavioral disturbance Plan 86 yo female, hx of dementia, current UTI with combative, agitated behaviors at her SNF, throwing urine, difficult to contain. Plan: Olanzapine 2.5 mg bid and 2.5 mg bid prn aggressive agitation. Continue this until 11/30/21. Upon return to facility, when UTI treatment is completed, consider a change in Trazodone to Depakote Sprinkles 125 mg bid to initiate and titrate based upon pt's need as Trazodone may be increasing her agitation. Please have facility psychiatric consult service follow pt at her SNF. I spent minutes with the patient and/or on the patient floor today, greater than?50% of which was spent counseling/coordinating care. Informed Consent: does not understand
--- NOTE | 2021-11-19 19:15 | MHC.CM.ED ---
Cm received psych consult and medication recommendations from Brittani Jaimes NP. Uploaded in Care Port to [facility] with request to speak in the morning regarding patient's return to their facility. Brittani recommends Zypreza 2.5 mg BID and 2.5 mg BID PRN for agitation until 11/30. Tx UTI till 11/30. Then consider changing Trazadone (which can increase agitation) to Depakote Sprinkles 125 mg BID. CM will follow up in the morning.
[2021-11-19] MEDS: traZODone HCL 25 MG HALFTAB PO (19:47)
[2021-11-19] MEDS: Acetaminophen 325 MG TABLET 650 MG PO (19:56)
[2021-11-19] MEDS: Melatonin 3 MG TABLET 6 MG PO (19:58)
[2021-11-19] MEDS: traZODone HCL 50 MG TABLET PO (19:58)
[2021-11-19] MEDS: OLANZapine 2.5 MG TABLET PO (19:59)
[2021-11-19 20:15] VITALS: BP 152/101; PULSE 106; RESP 18; O2SAT 93
[2021-11-20] MEDS: Levothyroxine Sodium 75 MCG TABLET PO (06:36)
--- NOTE | 2021-11-20 06:38 | PC.NURSE ---
pt resistive to taking medication, after some encouragement took medication in pudding with apple juice. pt resting in bed, warm blanket given
[2021-11-20] MEDS: OLANZapine 2.5 MG TABLET PO (09:35)
[2021-11-20] MEDS: Amiodarone HCL 200 MG TABLET PO (09:35)
[2021-11-20 09:40] VITALS: BP 124/85; PULSE 99; RESP 16; O2SAT 96
[2021-11-20 11:22] LABS: COVID-19 Test Negative (Negative); IDNOW Serial# 16C4AD1C
--- NOTE | 2021-11-20 13:48 | PC.NURSE ---
Report to [facility]
--- NOTE | 2021-11-21 06:25 | MHC.CM.ED ---
Late entry from 11/20/2021 at 12:00: Patient's repeat Covid swab is negative. Patient can leave for at 1pm. [facility] booked. Med nec with chart. Lois POWELL and Star GODOY aware. Continue to monitor for d/c needs.
== END 2021-11-20 13:49 | disposition skilled nursing facility (03) ==
PROVIDERS: Physician Assistant; Emergency Provider Emergency Medicine; PCP Internal Medicine
DX: S19.9XXA Unspecified injury of neck, initial encounter (principal); F03.91 Unspecified dementia, unspecified severity, with behavioral disturbance; N39.0 Urinary tract infection, site not specified; R51.9 Headache, unspecified; M54.2 Cervicalgia; I48.91 Unspecified atrial fibrillation; R07.89 Other chest pain; W01.0XXA Fall on same level from slipping, tripping and stumbling without subsequent striking against object, initial encounter; Y93.9 Activity, unspecified; Y92.9 Unspecified place or not applicable; Y99.9 Unspecified external cause status; Z20.822 Contact with and (suspected) exposure to COVID-19; Z79.899 Other long term (current) drug therapy; Z87.891 Personal history of nicotine dependence
CPT/HCPCS: 70450; 72125; 81001; 87086; 87635; 93005; 99285

== ENCOUNTER 2021-11-21 20:41 | Emergency (ER) | payer MEDICARE, MEDICAID, SELFPAY ==
--- NOTE | ~2021-11-21 | XR_ITS ---
EXAMINATION: XR CHEST CLINICAL INFORMATION: Hypoxia COMPARISON: 07.19.2021 TECHNIQUE: Frontal view of the chest was obtained. FINDINGS: Pulmonary venous congestion and interstitial edema. There are some patchy airspace opacities as well. Small bilateral pleural effusions. No pneumothorax. Mild cardiomegaly. Coarse mitral annular calcifications. Aorta is atherosclerotic. No acute osseous abnormalities. XR/XR chest 1V IMPRESSION: Findings suggestive of interstitial edema. There may be a mild alveolar component as well. Small bilateral pleural effusions.
[2021-11-21 20:44] VITALS: BMI 23.9
[2021-11-21 20:52] VITALS: BP 129/84; PULSE 106; RESP 18; TEMP 36.8; O2SAT 92; BMI 19.3
[2021-11-21 21:15] VITALS: BP 129/84; PULSE 106; RESP 21; TEMP 36.8; O2SAT 92
--- NOTE | 2021-11-21 21:36 | ED_ITS ---
HPI - General Adult General Chief complaint: Psychiatric Symptoms Stated complaint: increased agitation Time Seen by Provider: 11/21/21 21:36 Source: EMS Mode of arrival: EMS Limitations: altered mental status History of Present Illness HPI narrative: 86-year-old female with a past medical history of disorientation, dementia, Ramos's palsy, AFib not anticoagulated, CHF, CKD, encephalopathy, UTI currently on amoxicillin, presenting to ED via EMS?from SNF for agitation, combative behavior, and refusing her medications at the facility. According to EMS she was recently seen here in our emergency department and was diagnosed with a UTI, orthostatic hypotension and was discharged home without antibiotics. Patient has not had any falls. Not taking medications as prescribed. Unable to provide me a good history. When I ask her if anything hurts she tells me a man brought me in here. Related Data Home Medications Medication Instructions Recorded Confirmed Saccharomyces boulardii 250 mg 250 mg PO BID 11/18/21 11/18/21 capsule acetaminophen 325 mg tablet 650 mg PO Q4H PRN pain or fever 11/18/21 11/18/21 amiodarone 200 mg tablet 200 mg PO BID 11/18/21 11/18/21 melatonin 3 mg tablet 6 mg PO BEDTIME 11/18/21 11/18/21 trazodone 50 mg tablet 25 mg PO DAILY PRN Agitation 11/18/21 11/18/21 trazodone 50 mg tablet 50 mg PO BEDTIME 11/18/21 11/18/21 Previous Rx's Medication Instructions Recorded wheelchair #1 ea 08/24/20 pull ups medium #180 ea 01/03/21 levothyroxine 75 mcg tablet 75 mcg PO DAILY@0600 90 days #90 11/05/21 tabs Allergies Allergy/AdvReac Type Severity Reaction Status Date / Time amlodipine [From [facility]] Allergy Intermediate HIVES Verified 10/23/21 10:07 aspirin [ASA] Allergy Intermediate HIVES Verified 10/23/21 10:07 robert [ROBERT] Allergy Intermediate HIVES Verified 10/23/21 10:07 hydrochlorothiazide Allergy Unknown Hives Verified 10/23/21 10:07 gabapentin AdvReac Unknown dizziness Verified 10/23/21 10:07 lisinopril AdvReac Unknown Cough Verified 10/23/21 10:07 Review of Systems Review of Systems: Yes Unobtainable due to mental status PMFSH Past Medical History Attestation statement: The following information was validated with the patient. Source: old records reviewed and nursing notes reviewed Medical History Anxiety Ramos's palsy Cervical cancer CHF (congestive heart failure) Cognitive impairment Congestive heart failure DVT (deep venous thrombosis) GERD (gastroesophageal reflux disease) Hospital discharge follow-up Hydronephrosis Hypercholesterolemia Hypertension Hypothyroidism Lumbar degenerative disc disease Obstructive uropathy Osteoarthritis Paroxysmal atrial fibrillation Peripheral vascular disease Pyuria Vitamin D deficiency Surgical History H/O elbow surgery History of bladder surgery History of cholecystectomy Family History Family History Father Hypertension Stroke CVD (cardiovascular disease) Mother Hypoglycemia Social History Social History Household Members: Family Household Members Other:: Daughter lives on second floor Housing: Unknown / Unable to assess Do you presently have visiting nurse or other home services: No Unable to assess alcohol history related to: Unknown Alcohol intake: unknown Patient Tobacco Use Status: Former Tobacco user Tobacco use type: Cigarette e-Cigarette/Vaping Use: Never Used Second Hand Smoke Exposure: No Advance Directives: Yes Advance Directives on File: Yes Advance Directives Date on File: 09/08/20 service: No Current occupational status: disabled Cognitive needs: Yes Hearing needs: Yes Vision needs: Yes Physical Exam ED Vital Signs: Vital Signs - 24 hr 11/21/21 20:52 11/21/21 21:15 Temperature 98.2 F 98.2 F Pulse Rate 106 H 106 H Respiratory Rate 18 21 H Blood Pressure 129/84 129/84 Pulse Oximetry 92 92 Oxygen Delivery Method Room Air Room Air BMI result Body Mass Index 19.3 VSS Appearance: Awake, alert.? No acute distress.? Head: Normocephalic, atraumatic, no step-offs or deformities Eyes: Pupils equal, round and reactive to light.? ENT: Pharynx normal.? Neck: Normal inspection.? Neck supple.? CVS: Normal heart rate and rhythm.? Pulses normal.? Respiratory: No respiratory distress.? Breath sounds normal.? Abdomen: Soft and nontender.? Skin: Skin warm and dry.? Normal skin color.? Normal skin turgor.? Extremities: No lower extremity edema.? No calf ttp. 5/5 strength to bilateral upper and lower extremities Neuro: Patient awake, moving all extremities. Oriented to person. No motor deficit.? No sensory deficit. Patient has a left-sided facial paralysis, sparing the right forehead based off previous notes this appears to be chronic in nature. Course Reevaluation(s) Reevaluation #1: CBC appears to be at patient's baseline. Chemistry appears to be at patient's baseline. COVID negative. Urine pending. Patient becoming aggressive towards staff members, hitting, punching. At this time IM Zyprexa will be given. Sign- out has been given to . Pending urine Time: 02:07 Medical Decision Making MDM Narrative Medical decision making narrative: 2119 Patient was brought in by ambulance from [facility] facility for altered mental status, combativeness, aggressive behavior. Patient is altered however she has a history of dementia. Upon physical examination patient agitated, alert to person, awake, moving all extremities appears comfortable and in no acute distress. Regular rate and rhythm. Lungs-clear. She is abdomen soft nontender nondistended. Vital signs stable. Upon chart review it appears as though patient was recently discharge from ed w/ UTI At this time is to obtain basic labs, chest x-ray, urine. Medical Records Medical records reviewed: Yes I reviewed the patient's medical records. Lab Data Lab results reviewed: Yes I reviewed the patient's lab results. Result diagrams: 11/21/21 22:09 11/21/21 22:09 Labs: Lab Results 11/21/21 11/21/21 11/21/21 Range/Units 22:09 22:09 22:09 WBC 6.6 (4.8-10.8) X10*3/uL RBC 3.51 L (4.20-5.50) X10*6/uL Hgb 10.4 L (12.0-16.0) g/dl Hct 31.5 L (37.0-47.0) % MCV 89.7 (80.0-98.0) fL MCH 29.6 (27.0-33.0) pg MCHC 33.0 (31.0-35.0) g/dl RDW 16.8 H (11.0-16.0) % Plt Count 280 (160-400) X10*3/uL MPV 9.4 (9.4-12.3) fL Immature Gran % (Auto) 0.2 (0.0-0.4) % Neut % (Auto) 77.5 H (45-73) % Lymph % (Auto) 13.3 L (20-40) % [place] % (Auto) 7.0 (2-11) % Eos % (Auto) 1.8 (0-4) % Baso % (Auto) 0.2 (0-2) % Lymph # (Auto) 0.9 L (1.2-4.9) X10*3/uL [place] # (Auto) 0.5 (0.1-1.2) X10*3/uL Eos # (Auto) 0.1 (0.0-0.4) X10*3/uL Baso # (Auto) 0.0 (0.0-0.2) X10*3/uL Abs Immat Gran (auto) 0.01 (0.00-0.03) X10*3/uL Absolute Neuts (auto) 5.1 (2.0-8.3) x10*3/uL Absolute Nucleated RBC 0.000 (0.0-0.012) X10*3/uL Nucleated RBC % (auto) 0.0 (0.0-0.2) /100WBC Sodium 137 (135-145) mmol/L Potassium 4.7 (3.3-5.1) mmol/L Chloride 108 (96-108) mmol/L Carbon Dioxide 22 (22-29) mmol/L Anion Gap 12 (12-20) BUN 19 H (9-16) mg/dL Creatinine 1.46 H (0.5-1.4) mg/dL Estim Creat Clear Calc 22.0 Estimated GFR 34 Random Glucose 95 (60-115) mg/dL Calcium 7.8 L D (8.4-10.2) mg/dL Magnesium 2.1 (1.6-2.6) mg/dL Total Bilirubin 0.2 (0.0-1.0) mg/dL AST 25 (5-31) U/L ALT 15 (0-31) U/L Alkaline Phosphatase 108 D (39-117) U/L Total Protein 6.5 (6.5-8.0) g/dL Albumin 3.1 L (3.5-5.0) g/dL Lipase 14 (8-78) U/L COVID-19 ([place]) Negative (Negative) COVID-19 Clin Com See Note Critical Care Time Critical Care Time Critical Care Time: No Discharge Plan Discharge Clinical Impression: Altered mental status, Agitation Patient Disposition: Still a Patient Prescriptions: No Action (DME) wheelchair See Rx Instructions .Route .MEDSUPPLY Qty: 1 0RF Rx Instructions: As directed (DME) pull ups medium See Rx Instructions .Route .MEDSUPPLY Qty: 180 11RF Rx Instructions: As directed levothyroxine 75 mcg tablet 75 mcg PO DAILY@0600 90 Days Qty: 90 2RF acetaminophen 325 mg Tablet 650 mg PO Q4H PRN (Reason: pain or fever) trazodone 50 mg Tablet 50 mg PO BEDTIME melatonin 3 mg Tablet 6 mg PO BEDTIME Saccharomyces boulardii 250 mg Capsule 250 mg PO BID Rx Instructions: X 14 DAYS, FINISH 11/29/2021 amiodarone 200 mg tablet 200 mg PO BID trazodone 50 mg Tablet 25 mg PO DAILY PRN (Reason: Agitation)
[2021-11-21 22:17] LABS: MANUAL DIFF FLAG NO
[2021-11-21 22:18] LABS: Basophils Percent Auto 0.2 % (0-2); Eosinophils Absolute Auto 0.1 X10*3/uL (0.0-0.4); Eosinophils Percent Auto 1.8 % (0-4); Hematocrit 31.5 % (37.0-47.0); Hemoglobin 10.4 g/dl (12.0-16.0); Imm Gran Abs Auto 0.01 X10*3/uL (0.00-0.03); Imm Gran Pct Auto 0.2 % (0.0-0.4); Lymphocytes Absolute Auto 0.9 X10*3/uL (1.2-4.9); Lymphocytes Percent Auto 13.3 % (20-40); Mean Corpuscular Hemoglobin 29.6 pg (27.0-33.0); Mean Corpuscular Volume 89.7 fL (80.0-98.0); Mean Platelet Volume 9.4 fL (9.4-12.3); Monocytes Absolute Auto 0.5 X10*3/uL (0.1-1.2); Neutrophils Absolute Auto 5.1 x10*3/uL (2.0-8.3); Neutrophils Percent Auto 77.5 % (45-73); Platelet Count 280 X10*3/uL (160-400); Red Blood Count 3.51 X10*6/uL (4.20-5.50); Red Cell Distribution Width 16.8 % (11.0-16.0); White Blood Count 6.6 X10*3/uL (4.8-10.8)
[2021-11-21 22:37] LABS: COVID-19 Test Negative (Negative)
[2021-11-21 22:39] LABS: Alanine Aminotransferase 15 U/L (0-31); Albumin Level 3.1 g/dL (3.5-5.0); Alkaline Phosphatase 108 U/L (39-117); Anion Gap 12 (12-20); Aspartate Amino Transferase 25 U/L (5-31); Bilirubin Total 0.2 mg/dL (0.0-1.0); Blood Urea Nitrogen 19 mg/dL (9-16); Calcium 7.8 mg/dL (8.4-10.2); Carbon Dioxide 22 mmol/L (22-29); Chloride 108 mmol/L (96-108); Estimated Glomerular Filt Rate 34; Glucose Random 95 mg/dL (60-115); Lipase 14 U/L (8-78); Magnesium 2.1 mg/dL (1.6-2.6); Potassium 4.7 mmol/L (3.3-5.1); Sodium 137 mmol/L (135-145); Total Protein 6.5 g/dL (6.5-8.0)
[2021-11-22] VITALS (8 sets, daily range): BP systolic 117–162; BP diastolic 75–104; PULSE 95–119; RESP 13–18; TEMP 36.7–37.2; O2SAT 94–97
[2021-11-22] MEDS: OLANZapine 10 MG VIAL IM (02:29)
--- NOTE | 2021-11-22 07:40 | PC.NURSE ---
pt's daughter jeevan lomeli ([phone]) called [facility] and was updated on pt status.
--- NOTE | 2021-11-22 11:05 | PHA.MEDREC ---
Pharmacy Consult ? Medication Reconciliation Pharmacy has completed the medication reconciliation. Patient came from [facility] with a medication list. On Friday, daughter reported patient is on Amiodarone BID which caused provider to want the order switch however the SNF giving patient Amiodarone daily. Minda Gaxiola, PharmD
[2021-11-22] MEDS: Levothyroxine Sodium 75 MCG TABLET PO (11:58)
[2021-11-22] MEDS: OLANZapine 2.5 MG TABLET PO ×2 (11:58→21:21)
[2021-11-22] MEDS: Amiodarone HCL 200 MG TABLET PO (11:58)
--- NOTE | 2021-11-22 16:44 | PC.NURSE ---
Patients daughter called told to call [facility] for updates and gave tel # [phone].
[2021-11-22] MEDS: traZODone HCL 25 MG HALFTAB PO (21:21)
[2021-11-22] MEDS: Melatonin 3 MG TABLET 6 MG PO (21:21)
[2021-11-22] MEDS: traZODone HCL 50 MG TABLET PO (21:21)
[2021-11-22] MEDS: Acetaminophen 325 MG TABLET 650 MG PO (21:23)
[2021-11-23] VITALS: RESP 18
--- NOTE | 2021-11-23 01:59 | PC.NURSE ---
Patient alert but confused slept most the day but would wake up to eat. Patient woke up at 1am gave her some crackers and decaf coffee with 3 creams and 3 sugars. Patient was calm and cooperative. Daughter states not to give patient any metal utensils. Will continue with plan of care.
[2021-11-23] MEDS: Levothyroxine Sodium 75 MCG TABLET PO (05:26)
[2021-11-23] MEDS: Amiodarone HCL 200 MG TABLET PO (10:00)
[2021-11-23] MEDS: OLANZapine 2.5 MG TABLET PO ×2 (10:01→20:32)
--- NOTE | 2021-11-23 10:06 | PC.NURSE ---
QUIET IN ROOM, TOOK AM MEDICATIONS WITHOUT DIFFICULTY. SHE ATE BREAKFAST. UPDATED FAMILY
--- NOTE | 2021-11-23 14:53 | PM.PSYCN ---
History of Present Illness Date of Service: t Chief Complaint: increased agitation Reason for Consult: Reassessment of mental status Discussed with referring provider: Yes Sources of Information: patient interviewed, chart reviewed and crisis/core team assessment reviewed HPI Narrative: The patient is an 86-year-old female, bilingual, resident of a custodial facility with a long history of dementia was brought into the emergency room for exacerbation of paranoia disorganized behavior and violence. When she was in the ED, she was diagnosed with UTI and treated with antibiotics. The patient was assessed yesterday and so far she was ready to go back to the custodial facility. Today we reassess her at bedside and she was pleasant and cooperative, she complained of dysuria and confusion at times. I provided psycho education and she was able to understand her symptoms. There is no evidence of psychosis or mood lability at this moment. She was cooperative and willing to follow treatment. Past Psychiatric History: past history of dementia Medical Evaluation Reviewed: Yes [facility] Medical History Anxiety Ramos's palsy Cervical cancer CHF (congestive heart failure) Cognitive impairment Congestive heart failure DVT (deep venous thrombosis) GERD (gastroesophageal reflux disease) Hospital discharge follow-up Hydronephrosis Hypercholesterolemia Hypertension Hypothyroidism Lumbar degenerative disc disease Obstructive uropathy Osteoarthritis Paroxysmal atrial fibrillation Peripheral vascular disease Pyuria Vitamin D deficiency Surgical History H/O elbow surgery History of bladder surgery History of cholecystectomy Family History: Denies Social History: Good social support, resident of custodial facility Substance History: Denies Trauma History: Denies Diagnostics Vital Signs (24Hr): Vital Signs - 24 hr 11/22/21 21:18 11/23/21 00:00 Temperature 98.3 F Pulse Rate 95 Respiratory Rate 16 18 Blood Pressure 128/86 Pulse Oximetry 96 Oxygen Delivery Method Room Air BMI result Body Mass Index 19.3 Labs Results: 11/21/21 22:09 11/21/21 22:09 Labs: Laboratory Results - last 48 hr 11/21/21 11/21/21 11/21/21 22:09 22:09 22:09 WBC 6.6 RBC 3.51 L Hgb 10.4 L Hct 31.5 L MCV 89.7 MCH 29.6 MCHC 33.0 RDW 16.8 H Plt Count 280 MPV 9.4 Immature Gran % (Auto) 0.2 Neut % (Auto) 77.5 H Lymph % (Auto) 13.3 L [place] % (Auto) 7.0 Eos % (Auto) 1.8 Baso % (Auto) 0.2 Lymph # (Auto) 0.9 L [place] # (Auto) 0.5 Eos # (Auto) 0.1 Baso # (Auto) 0.0 Abs Immat Gran (auto) 0.01 Absolute Neuts (auto) 5.1 Absolute Nucleated RBC 0.000 Nucleated RBC % (auto) 0.0 Sodium 137 Potassium 4.7 Chloride 108 Carbon Dioxide 22 Anion Gap 12 BUN 19 H Creatinine 1.46 H Estim Creat Clear Calc 22.0 Estimated GFR 34 Random Glucose 95 Calcium 7.8 L D Magnesium 2.1 Total Bilirubin 0.2 AST 25 ALT 15 Alkaline Phosphatase 108 D Total Protein 6.5 Albumin 3.1 L Lipase 14 COVID-19 ([place]) Negative COVID-19 Clin Com See Note Imaging Radiology Impressions: ITS Impressions Chest X-Ray 11/22/21 00:41 IMPRESSION: Findings suggestive of interstitial edema. There may be a mild alveolar component as well. Small bilateral pleural effusions. Mental Status Exam Mental Status Exam Patient Appearance: Appropriate Patient Orientation: Person and Situation Level of Consciousness: Awake Patient Behavior: Cooperative Mood Description: Calm Affect Description: Constricted Patient Cognition Impaired: Yes Ability to Follow Directions: Fair Speech Pattern: Clear Hallucinations: None Delusions: Not Present Thought Process: Distracted and Confusion Thought Content: positive for [place] and positive for Circumstantial Judgement: Fair Medications Medications Current Medications Acetaminophen (Acetaminophen 325 Mg Tablet) 650 mg PO Q4H PRN PRN Reason: pain or fever Last Admin: 11/22/21 21:23 Dose: 650 mg Amiodarone HCl (Amiodarone Hcl 200 Mg Tablet) 200 mg PO DAILY [facility] Last Admin: 11/23/21 10:00 Dose: 200 mg Levothyroxine Sodium (Levothyroxine Sodium 75 Mcg Tablet) 75 mcg PO DAILY@0600 [facility] Last Admin: 11/23/21 05:26 Dose: 75 mcg Melatonin (Melatonin 3 Mg Tablet) 6 mg PO BEDTIME [facility] Last Admin: 11/22/21 21:21 Dose: 6 mg Olanzapine (Olanzapine 2.5 Mg Tablet) 2.5 mg PO BID PRN PRN Reason: Anxiety Olanzapine (Olanzapine 2.5 Mg Tablet) 2.5 mg PO BID [facility] Last Admin: 11/23/21 10:01 Dose: 2.5 mg Pharmacy Consult (Consult Rx Perform Med Rec) 1 each MISCELLANE ONCE PRN PRN Reason: Consult order Trazodone HCl (Trazodone Hcl 25 Mg Halftab) 25 mg PO DAILY PRN PRN Reason: Agitation Last Admin: 11/22/21 21:21 Dose: 25 mg Trazodone HCl (Trazodone Hcl 50 Mg Tablet) 50 mg PO BEDTIME [facility] Last Admin: 11/22/21 21:21 Dose: 50 mg Allergies Allergies Allergy/AdvReac Type Severity Reaction Status Date / Time amlodipine [From [facility]] Allergy Intermediate HIVES Verified 10/23/21 10:07 aspirin [ASA] Allergy Intermediate HIVES Verified 10/23/21 10:07 robert [ROBERT] Allergy Intermediate HIVES Verified 10/23/21 10:07 hydrochlorothiazide Allergy Unknown Hives Verified 10/23/21 10:07 gabapentin AdvReac Unknown dizziness Verified 10/23/21 10:07 lisinopril AdvReac Unknown Cough Verified 10/23/21 10:07 Assessment & Plan Assessment & Plan (1) Altered mental status: Status: Acute Code(s): R41.82 - Altered mental status, unspecified (2) Dementia: Status: Acute Code(s): F03.90 - Unspecified dementia without behavioral disturbance (3) UTI (urinary tract infection): Status: Acute Code(s): N39.0 - Urinary tract infection, site not specified Plan The patient is an 86-year-old descent female with a history of dementia, UTI and several other medical comorbidities admitted into the emergency room for worsening of agitation. She is currently treated with antibiotics and so far, her behavior has been much better less disoriented. Plan 1. Continue with antibiotics and medical treatment. 2. No changes in current neuroleptics. 3. At this moment the patient does not have criteria for inpatient level of care of Psychiatry I spent __30____ minutes with the patient and/or on the patient floor today, greater than?50% of which was spent counseling/coordinating care. Patient educated on: diagnosis Informed Consent: further education needed
[2021-11-23 15:44] VITALS: BP 112/82; PULSE 93; RESP 14; TEMP 36.6; O2SAT 95
--- NOTE | 2021-11-23 15:58 | MHC.OT.ID ---
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 Daughter reports frustration that these incidents are considered to be as a result of a UTI by medical staff credentialing coordinator and that she needs help/treatment for dementia with behaviors. Assessment Assessment: OTR and student provided support and validation, occupying sensory activities for pt Plan Plan of Care: D/C Today: Electronically Signed By: Angela Cueva OTR/L Reviewed/agree with student documentation: Therapist:
[2021-11-23 16:02] VITALS: BP 138/93; PULSE 66; RESP 14; TEMP 37.1; O2SAT 95
--- NOTE | 2021-11-23 19:09 | MHC.CM.ED ---
Addendum entered by Jo Madrigal 11/23/21 19:45: RN and Star GODOY aware. Pt will need antibiotics at D/C. CM to follow for d/c needs. Original Note: Psych consult: [facility] to [facility] by Dr. Corbin. Consult uploaded to [facility]. Agree to accept patient in the morning at 10 am. S transport booked with [facility] for 10 am. Daughter Alina notified and asgreeable to pt returning [facility]. CM to follow for d/c needs.
[2021-11-23 20:20] VITALS: BP 106/66; PULSE 95; RESP 12; TEMP 36.5; O2SAT 97
[2021-11-23] MEDS: Melatonin 3 MG TABLET 6 MG PO (20:32)
[2021-11-23] MEDS: traZODone HCL 50 MG TABLET PO (20:32)
[2021-11-24 02:00] VITALS: BP 130/67; PULSE 94; RESP 16; TEMP 36.7; O2SAT 96
[2021-11-24 04:00] VITALS: BP 128/68; PULSE 84; RESP 16; TEMP 36.7; O2SAT 96
[2021-11-24] MEDS: Levothyroxine Sodium 75 MCG TABLET PO (05:46)
[2021-11-24 06:00] VITALS: BP 130/76; PULSE 104; RESP 16; TEMP 36.5; O2SAT 96
--- NOTE | 2021-11-24 06:12 | PC.NURSE ---
Pt incontinent of urine, provided with alejo care and a complete bed change. Pt medicated with AM medications, taking pills whole with water.
[2021-11-24] MEDS: Amiodarone HCL 200 MG TABLET PO (09:50)
[2021-11-24] MEDS: OLANZapine 2.5 MG TABLET PO (09:50)
[2021-11-24 10:09] VITALS: BP 147/94; PULSE 104; RESP 18; O2SAT 95
--- NOTE | 2021-11-24 12:03 | PC.NURSE ---
@12PM US CALLED [facility] FOR AN UPDATE. [facility] SAID WITHIN AN HOUR DUE TO ONE TRUCK AND 15 TRANSPO
--- NOTE | 2021-11-24 13:33 | PC.NURSE ---
@[phone] US placed a call to [facility] for a time for a picker. Spoke to Salena and she mention they should arrive in 10 mins
== END 2021-11-24 14:45 | disposition skilled nursing facility (03) ==
PROVIDERS: Physician Assistant; Emergency Provider Internal Medicine
DX: R41.82 Altered mental status, unspecified (principal); R45.1 Restlessness and agitation; R45.6 Violent behavior; Z20.822 Contact with and (suspected) exposure to COVID-19; F03.90 Unspecified dementia, unspecified severity, without behavioral disturbance, psychotic disturbance, mood disturbance, and anxiety; I13.0 Hypertensive heart and chronic kidney disease with heart failure and stage 1 through stage 4 chronic kidney disease, or unspecified chronic kidney disease; N18.30 Chronic kidney disease, stage 3 unspecified; I50.9 Heart failure, unspecified; I48.91 Unspecified atrial fibrillation; Z91.14 Patient's other noncompliance with medication regimen; Z87.891 Personal history of nicotine dependence
CPT/HCPCS: 71045; 80053; 83690; 83735; 85025; 87635; 96372; 99285

== ENCOUNTER → 2022-01-09 11:42 | Outpatient (BNVA) | payer MEDICARE, MEDICAID, SELFPAY | PROVIDERS: PCP Emergency Medicine; Visit Provider Internal Medicine Cardiovascular Disease | DX: Z13.89 Encounter for screening for other disorder (principal) | CPT/HCPCS: 93005; 99212 ==

== ENCOUNTER 2022-01-11 11:12 | Inpatient (IN) | payer MEDICARE, MEDICAID, SELFPAY ==
[2022-01-11] VITALS (8 sets, daily range): BP systolic 100–118; BP diastolic 65–84; PULSE 88–151; RESP 14–21; TEMP 36.4–36.9; O2SAT 96–98; BMI 19.8
--- NOTE | 2022-01-11 | ECG_ITS ---
Test Reason : ekg chages tachycardia Blood Pressure : / mmHG Vent. Rate : 135 BPM Atrial Rate : 000 BPM P-R Int : 000 ms QRS Dur : 100 ms QT Int : 282 ms P-R-T Axes : 000 -40 134 degrees QTc Int : 423 ms Atrial fibrillation with rapid ventricular response Left axis deviation Minimal voltage criteria for LVH, may be normal variant ( Rafael product ) Septal infarct (cited on or before 11-JAN-2022) ST & T wave abnormality, consider lateral ischemia Abnormal ECG When compared with ECG of 11-JAN-2022 11:52, No significant change was found Referred By: Alec Correa Electronically Signed By:ERYN PRINCE
--- NOTE | ~2022-01-11 | XR_ITS ---
EXAMINATION: XR CHEST CLINICAL INFORMATION: Chest pain COMPARISON: 11/22/2021 TECHNIQUE: Frontal view of the chest was obtained. FINDINGS: There is a right chest wall medication port with tip of central catheter located in region of junction of the SVC with the right atrium. Lungs are hypoinflated. The interstitial prominence is similar compared to 11/22/2021. The right lateral costophrenic sulcus is blunted from a small pleural effusion. There is stable appearance of the cardiomediastinal silhouette, with findings of chronically enlarged left atrium, calcified mitral valve annulus, and atherosclerotic aorta. The proximal ureteral stents are partially included in the [id number]. The proximal right stent is looped in the region of the renal pelvis. Chronic multilevel degenerative arthropathy of the visualized thoracolumbar spine. XR/XR chest 1V IMPRESSION: * Lower lobes are suboptimally evaluated due to the hypoinflation. * The generalized interstitial prominence is suspicious for interstitial edema, although inflammatory thickening of airway jones could have a similar appearance. Small right pleural effusion is present. Overall, findings are similar to those seen on 11/22/2021.
--- NOTE | ~2022-01-11 | CT_ITS ---
EXAMINATION: CT HEAD WITHOUT CONTRAST (STROKE PROTOCOL) CLINICAL INFORMATION: Stroke protocol. Left facial droop and hand weakness of sudden onset. COMPARISON: November 18, 2021 and September 18, 2021 TECHNIQUE: Contiguous axial imaging was performed from the skull base to vertex without intravenous administration of contrast. This CT examination was performed using dose optimization techniques as appropriate, variously including the following: *Automated exposure control *Adjustment of mA and/or kV according to patient size (this includes techniques or standardized protocols for targeted exams where dose is matched to indication/reason for exam; i.e. extremities or head) *Use of iterative reconstruction technique DLP: 617 mGy-cm FINDINGS: No intracranial hemorrhage is identified. No region of edema or midline structure shift is seen. There is again noted to be a large amount of periventricular white matter low density. There is prominence of ventricles, sulci, and cisterns consistent with generalized atrophy. The paranasal sinuses and mastoid air cells are well aerated. CT/CT head for stroke IMPRESSION: No acute intracranial pathology. 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 This critical result was discussed with Dr. Jose Correa at 11:40 AM hours on January 11, 2022. It was ascertained that the content and urgency of the report was understood at the time of direct communication.
--- NOTE | 2022-01-11 11:18 | ECG_ITS ---
Test Reason : stroke Blood Pressure : / mmHG Vent. Rate : 129 BPM Atrial Rate : 078 BPM P-R Int : 000 ms QRS Dur : 098 ms QT Int : 338 ms P-R-T Axes : 000 -39 134 degrees QTc Int : 495 ms Atrial fibrillation with rapid ventricular response Left axis deviation Minimal voltage criteria for LVH, may be normal variant ( Rafael product ) Septal infarct , age undetermined ST & T wave abnormality, consider lateral ischemia Abnormal ECG When compared with ECG of 18-NOV-2021 21:29, T wave inversion more evident in Lateral leads Referred By: Alec Correa Electronically Signed By:ERYN PRINCE
--- NOTE | 2022-01-11 11:29 | ED.WEAKNESS ---
HPI - Weakness General Chief complaint: Stroke Stated complaint: STROKE ALERT Time Seen by Provider: 01/11/22 11:17 Source: patient and EMS Mode of arrival: EMS Limitations: language barrier (Georgian speaking only, foreign language instructor used, patient is uncooperative) History of Present Illness HPI Narrative: 86-year-old female who was sent from her assisted living facility for evaluation unstable and left-sided droop. Forty to EMS the patient was last seen well at 10:35 a.m. At 10 40 she was noted to be off balance and had a left facial droop. Assisted living staff also reported that her speech sounded slurred. An ambulance was called and the patient was transported to the emergency department. According the paramedics the patient's blood pressure is 110/72 with a heart rate of 130. Patient was noted to have a left facial droop. Point of care glucose was 140. The patient is Georgian-speaking only, she is uncooperative but we were able to get her to cooperate with a neurologic exam. Patient does have a left facial droop that partial involves the left upper forehead. She had normal strength on both her left and right side. The patient was sent directly to the CT scan to evaluate for acute stroke verses bleed. I did discuss the patient with Dr. Mustafa, our neurologist on-call for stroke who felt that the patient is not a tPA candidate at this time. In reviewing the patient's medical record from [facility] dated 08/30/2021 the patient has had multiple episodes of left-sided facial droop with her last workup on 10/28/2020 at [facility] with negative MRI. She was on aspirin and started on Plavix as well but I do not think that she is currently taking Plavix. From the record, she has had episodes of left-sided weakness with left facial droop 2020, 2009, 2006, 2005, 1999. She has had multiple negative MRIs. In reviewing her medication list, the patient is on aspirin with no other anticoagulants noted. MD Complaint: focal weakness Onset (ago): hour(s) (1) Duration: constant Location: LUE and face (Left facial droop) Migration: none Severity: moderate Relieving factors: none Exacerbating factors: none Related Data Home Medications Medication Instructions Recorded Confirmed Saccharomyces boulardii 250 mg 250 mg PO BID 11/18/21 01/09/22 capsule acetaminophen 325 mg tablet 650 mg PO Q4H PRN pain or fever 11/18/21 11/22/21 melatonin 3 mg tablet 6 mg PO BEDTIME 11/18/21 01/09/22 trazodone 50 mg tablet 50 mg PO BEDTIME 11/18/21 01/09/22 estradiol 0.01% (0.1 mg/gram) g vaginal 01/09/22 01/09/22 vaginal cream nystatin 100,000 unit/gram topical 1 appl topical BID-TID 01/09/22 01/09/22 powder (Nystop) olanzapine 5 mg disintegrating 5 mg PO BEDTIME 01/09/22 01/09/22 tablet Previous Rx's Medication Instructions Recorded wheelchair #1 ea 08/24/20 pull ups medium #180 ea 01/03/21 levothyroxine 75 mcg tablet 75 mcg PO DAILY@0600 90 days #90 11/05/21 tabs Allergies Allergy/AdvReac Type Severity Reaction Status Date / Time amlodipine [From [facility]] Allergy Intermediate HIVES Verified 01/09/22 12:11 aspirin [ASA] Allergy Intermediate HIVES Verified 01/09/22 12:11 robert [ROBERT] Allergy Intermediate HIVES Verified 01/09/22 12:11 hydrochlorothiazide Allergy Unknown Hives Verified 01/09/22 12:11 gabapentin AdvReac Unknown dizziness Verified 01/09/22 12:11 lisinopril AdvReac Unknown Cough Verified 01/09/22 12:11 Review of Systems Review of Systems: Yes all other systems are reviewed and are negative [facility] Past Medical History [facility] Narrative: Past medical history: Please see the HPI, patient has had multiple episodes of left-sided weakness with left facial droop with negative MRIs in the past. Social history: The patient is living at [facility]. Medical History Anxiety Ramos's palsy Cervical cancer CHF (congestive heart failure) Cognitive impairment Congestive heart failure DVT (deep venous thrombosis) GERD (gastroesophageal reflux disease) Hospital discharge follow-up Hydronephrosis Hypercholesterolemia Hypertension Hypothyroidism Lumbar degenerative disc disease Obstructive uropathy Osteoarthritis Paroxysmal atrial fibrillation Peripheral vascular disease Pyuria Vitamin D deficiency Surgical History H/O elbow surgery History of bladder surgery History of cholecystectomy Family History Family History Father Hypertension Stroke CVD (cardiovascular disease) Mother Hypoglycemia Social History Social History Household Members: Family Household Members Other:: Daughter lives on second floor Housing: Unknown / Unable to assess Do you presently have visiting nurse or other home services: No Unable to assess alcohol history related to: Unknown Alcohol intake: never Patient Tobacco Use Status: Former Tobacco user Tobacco use type: Cigarette e-Cigarette/Vaping Use: Never Used Second Hand Smoke Exposure: No Use of substances other than those prescribed or required for medical reasons: No Advance Directives: Yes Advance Directives on File: Yes Advance Directives Date on File: 09/08/20 service: No Current occupational status: disabled Cognitive needs: Yes Hearing needs: Yes Vision needs: Yes Physical Exam Vital Signs: Vital Signs: Last Vital Signs Temp 98.4 F 01/11/22 16:40 Pulse 151 H 01/11/22 16:40 Resp 20 01/11/22 16:40 BP 118/70 01/11/22 16:40 Pulse Ox 96 01/11/22 16:40 O2 Del Method 01/11/22 16:40 BMI result Body Mass Index 19.8 Const: Other: Awake, alert, Georgian-speaking female only, according to foreign language instructor, the patient does not have slurred speech and her speech is comprehensible. The patient was uncooperative initially but I was able to get her to cooperate with neurologic exam. Orientation/consciousness: oriented to person HEENT: Head: Yes normal to inspection, Yes normocephalic and Yes atraumatic Ears: external ears normal General nose exam: Normal external nose present Face and sinus: Yes other (Left facial droop with slight diminished ability to wrinkle her left forehe) Mouth: Normal oral and palatal mucosa present Throat: Yes posterior oropharynx normal Eyes: General: appearance normal, both eyes and all related structures Pupils: Equal, round and reactive pupils present Neck: Neck: Yes normal visual inspection, Yes no lymphadenopathy, Yes trachea midline and Yes supple Chest: Chest palpation & inspection: normal inspection of the chest and normal palpation of entire chest wall Resp: Effort & Inspection: normal respiratory effort and able to speak in complete sentences Auscultation: clear to auscultation bilaterally Cardio: Rate: regular rate Rhythm: regular rhythm Heart sounds: S1 normal heart sound present, S2 normal heart sound present and no murmurs GI: Inspection: Yes normal to inspection Palpation (GI): Soft to palpation, nontender and no guarding Auscultation: normal bowel sounds : General: Yes no CVA tenderness Back/Spine/Pelvis: Back: no CVA tenderness Skin: General skin exam: no rashes or lesions noted Neuro: Other: Patient has a left facial droop which partially involves the left forehead, she is able to wrinkle the forehead on the left but not as much as on the right, her lower face is drooping on the left compared to the right General: oriented to person Cranial nerves: No CN's II-XII intact bilaterally and Yes Equal, round and reactive pupils present Cognition (Neuro): normal cognition Motor exam (neuro): 5/5 motor strength present throughout Extrem: General: Yes normal to inspection Psych: Appearance: grossly normal Speech and movement: Normal speech and movement present Affect: normal affect NIH Stroke Scale Internal: Initial- Upon Arrival Level of Consciousness: Alert Level of Consciousness Questions: Answers both questions correctly Level of Consciousness Commands: Performs both tasks correctly Best Gaze: Normal Visual: No visual loss Facial Palsy: Partial paralysis ( left upper diminished and lower complete) Motor Arm (Right): No drift Motor Arm (Left): No drift Motor Leg (Right): No drift Motor Leg (Left): No drift Limb Ataxia: Absent Sensory: Normal Best Language: No aphasia Dysarthia: Normal Extinction and Inattention: No abnormality Score: 2 Course Course Course Narrative: 86-year-old female who presents emergency department for evaluation left facial droop, left upper extremity weakness and ataxia with last known well time at 10:35. On my examination, the patient has partial paralysis of her left forehead with complete paralysis of her left lower face compared to the right. She had normal strength in both upper and lower extremities. Her speech was not slurred. In reviewing her records she does have a history of atrial fibrillation is on aspirin only. The patient has had multiple presentations with left facial droop and left sided weakness with negative workups. These could represent TIAs secondary to microvascular disease versus complex migraine or Xavi's paralysis secondary to seizure. Ramos palsy is also possibility. The patient was sent directly to the CT scan and there was no evidence for acute stroke, bleed, there is evidence for micro at vascular disease. I did discuss the patient's presentation with our covering neurologist, Dr. Mustafa and at this time he does not think that this patient is a thrombolytics candidate since her left facial droop is chronic and she has had multiple episodes in the past with negative workup for stroke. 1335: Laboratory evaluation: Low WBC 4100 Radiology evaluation: CT scan of the brain without IV contrast IMPRESSION: No acute intracranial pathology. 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 This critical result was discussed with Dr. Jose Correa at 11:40 AM hours on January 11, 2022. It was ascertained that the content and urgency of the report was understood at the time of direct communication. Dictated By:Chriss Upton MD Chest x-ray one view IMPRESSION: *? Lower lobes are suboptimally evaluated due to the hypoinflation. *? The generalized interstitial prominence is suspicious for interstitial edema, although inflammatory thickening of airway jones could have a similar appearance. Small right pleural effusion is present. Overall, findings are similar to those seen on 11/22/2021. Given her presentation, I think that the chest x-ray findings are chronic and I did review the x-rays as well. 1647: The patient had another episode of slurred speech with left-sided facial droop and left arm weakness. The patient also had a tachyarrhythmia with a 12 EKG reading atrial fibrillation the ventricular rate of 135. Patient was ordered to get Lopressor 5 mg IV. I did discuss the patient's presentation with the covering hospitalist, Dr. Matthews and the patient will be admitted for further treatment. MDM - Weakness Medical Records Attestation: I reviewed the patient's medical records. Lab Data Attestation: I reviewed the patient's lab results. Result diagrams: 01/11/22 11:47 01/11/22 11:47 Labs: Lab Results 01/11/22 01/11/22 01/11/22 Range/Units 11:35 11:36 11:47 WBC 4.1 L (4.8-10.8) X10*3/uL RBC 4.42 D (4.20-5.50) X10*6/uL Hgb 12.2 (12.0-16.0) g/dl Hct 37.6 (37.0-47.0) % MCV 85.1 (80.0-98.0) fL MCH 27.6 (27.0-33.0) pg MCHC 32.4 (31.0-35.0) g/dl RDW 16.1 H (11.0-16.0) % Plt Count 254 (160-400) X10*3/uL MPV 9.0 L (9.4-12.3) fL Immature Gran % (Auto) 0.5 H (0.0-0.4) % Neut % (Auto) 72.4 (45-73) % Lymph % (Auto) 16.5 L (20-40) % [place] % (Auto) 10.2 (2-11) % Eos % (Auto) 0.2 (0-4) % Baso % (Auto) 0.2 (0-2) % Lymph # (Auto) 0.7 L (1.2-4.9) X10*3/uL [place] # (Auto) 0.4 (0.1-1.2) X10*3/uL Eos # (Auto) 0.0 (0.0-0.4) X10*3/uL Baso # (Auto) 0.0 (0.0-0.2) X10*3/uL Abs Immat Gran (auto) 0.02 (0.00-0.03) X10*3/uL Absolute Neuts (auto) 3.0 (2.0-8.3) x10*3/uL Absolute Nucleated RBC 0.000 (0.0-0.012) X10*3/uL Nucleated RBC % (auto) 0.0 (0.0-0.2) /100WBC PT (10.0-13.1) SEC Whole Blood PT 15.6 H (11.1-13.5) sec INR (0.9-1.1) Whole Blood INR 1.3 H (0.9-1.1) APTT (26.0-36.4) SEC POC Glucose 92 (60-115) mg/dL Troponin I High Sens (<3.5-17.0) ng/L 01/11/22 01/11/22 Range/Units 11:47 11:47 WBC (4.8-10.8) X10*3/uL RBC (4.20-5.50) X10*6/uL Hgb (12.0-16.0) g/dl Hct (37.0-47.0) % MCV (80.0-98.0) fL MCH (27.0-33.0) pg MCHC (31.0-35.0) g/dl RDW (11.0-16.0) % Plt Count (160-400) X10*3/uL MPV (9.4-12.3) fL Immature Gran % (Auto) (0.0-0.4) % Neut % (Auto) (45-73) % Lymph % (Auto) (20-40) % [place] % (Auto) (2-11) % Eos % (Auto) (0-4) % Baso % (Auto) (0-2) % Lymph # (Auto) (1.2-4.9) X10*3/uL [place] # (Auto) (0.1-1.2) X10*3/uL Eos # (Auto) (0.0-0.4) X10*3/uL Baso # (Auto) (0.0-0.2) X10*3/uL Abs Immat Gran (auto) (0.00-0.03) X10*3/uL Absolute Neuts (auto) (2.0-8.3) x10*3/uL Absolute Nucleated RBC (0.0-0.012) X10*3/uL Nucleated RBC % (auto) (0.0-0.2) /100WBC PT 15.5 H (10.0-13.1) SEC Whole Blood PT (11.1-13.5) sec INR 1.3 H (0.9-1.1) Whole Blood INR (0.9-1.1) APTT 31.0 (26.0-36.4) SEC POC Glucose (60-115) mg/dL Troponin I High Sens 10.4 (<3.5-17.0) ng/L ECG Data Attestation: I personally reviewed and interpreted this ECG as follows: Interpretation: 1152: Atrial fibrillation with a rapid ventricular response of 129, inverted T-waves in lead 1, aVL, no other T-wave abnormalities, Q-waves V1 through V3, no ST segment elevation, no ST segment depression, no PVCs. 1643: Atrial fibrillation with rapid ventricular response with a rate of 135, inverted T-waves lead 1, aVL, no ST segment elevation, no ST segment depression, no PVCs, Q-waves V1 through V3, unchanged from EKG 1. at 11:52. Discharge Plan Discharge Prescriptions: No [facility] (DME) wheelchair See Rx Instructions .Route .MEDSUPPLY Qty: 1 0RF Rx Instructions: As directed (DME) pull ups medium See Rx Instructions .Route .MEDSUPPLY Qty: 180 11RF Rx Instructions: As directed levothyroxine 75 mcg tablet 75 mcg PO DAILY@0600 90 Days Qty: 90 2RF acetaminophen 325 mg Tablet 650 mg PO Q4H PRN (Reason: pain or fever) trazodone 50 mg Tablet 50 mg PO BEDTIME melatonin 3 mg Tablet 6 mg PO BEDTIME Saccharomyces boulardii 250 mg Capsule 250 mg PO BID Rx Instructions: X 14 DAYS, FINISH 11/29/2021 olanzapine 5 mg tablet,disintegrating 5 mg PO BEDTIME nystatin [Nystop] 100,000 unit/gram powder 1 appl topical BID-TID estradiol 0.01 % (0.1 mg/gram) cream vaginal
[2022-01-11 11:45] LABS: Glucose, Whole Blood 92 mg/dL (60-115)
[2022-01-11 11:51] LABS: MANUAL DIFF FLAG NO
[2022-01-11 11:54] LABS: Basophils Percent Auto 0.2 % (0-2); Eosinophils Percent Auto 0.2 % (0-4); Hematocrit 37.6 % (37.0-47.0); Hemoglobin 12.2 g/dl (12.0-16.0); Imm Gran Abs Auto 0.02 X10*3/uL (0.00-0.03); Imm Gran Pct Auto 0.5 % (0.0-0.4); Lymphocytes Absolute Auto 0.7 X10*3/uL (1.2-4.9); Lymphocytes Percent Auto 16.5 % (20-40); Mean Corpuscular HGB Conc 32.4 g/dl (31.0-35.0); Mean Corpuscular Hemoglobin 27.6 pg (27.0-33.0); Mean Corpuscular Volume 85.1 fL (80.0-98.0); Monocytes Absolute Auto 0.4 X10*3/uL (0.1-1.2); Monocytes Percent Auto 10.2 % (2-11); Neutrophils Percent Auto 72.4 % (45-73); Platelet Count 254 X10*3/uL (160-400); Red Blood Count 4.42 X10*6/uL (4.20-5.50); Red Cell Distribution Width 16.1 % (11.0-16.0); White Blood Count 4.1 X10*3/uL (4.8-10.8)
--- NOTE | 2022-01-11 11:54 | PC.NURSE ---
Iv placed, blood and VS obtained, MD in room speaking with family about plan at this time.
[2022-01-11 12:06] LABS: INTERNATIONAL NORM RATIO 1.3 (0.9-1.1); Prothrombin Time 15.5 SEC (10.0-13.1)
[2022-01-11 12:12] LABS: Troponin-I High Sensitivity 10.4 ng/L (<3.5-17.0)
[2022-01-11 12:17] LABS: Stroke Lab Use COMPLETE
[2022-01-11 12:25] LABS: Prothrombin Time Whole Bld POC 15.6 sec (11.1-13.5); ~PT, ~INR - Anti Coag Clinic 1.3 (0.9-1.1)
--- NOTE | 2022-01-11 16:43 | PC.NURSE ---
When attempting to get patient out of bed the patient had previously combative with staff. This time completely slummed in bed and drooling. Change in mental status. HR also noted to be elevated. and at bedside for possible admission. Per will call daughter for information on code status.
[2022-01-11] MEDS: Metoprolol Tartrate 5 MG/5 ML VIAL IVPUSH (17:07)
[2022-01-11 17:41] LABS: Alanine Aminotransferase 12 U/L (0-31); Albumin Level 2.4 g/dL (3.5-5.0); Alkaline Phosphatase 96 U/L (39-117); Anion Gap 17 (12-20); Aspartate Amino Transferase 22 U/L (5-31); Bilirubin Direct 0.4 mg/dL (0.0-0.5); Bilirubin Total 0.7 mg/dL (0.0-1.0); Blood Urea Nitrogen 34 mg/dL (9-16); Carbon Dioxide 20 mmol/L (22-29); Chloride 105 mmol/L (96-108); Creatinine Clr Calc Pharmacy 15.9; Estimated Glomerular Filt Rate 27; Glucose Random 85 mg/dL (60-115); Potassium 4.9 mmol/L (3.3-5.1); Sodium 137 mmol/L (135-145); Total Protein 6.2 g/dL (6.5-8.0)
[2022-01-11 17:43] LABS: COVID-19 Test Negative (Negative)
[2022-01-11 17:44] LABS: Troponin-I High Sensitivity 10.7 ng/L (<3.5-17.0)
--- NOTE | 2022-01-11 18:09 | PM.IMHP ---
History of Present Illness Date of Service: 01/11/22 Chief Complaint: AFib w/RVR 86-year-old female who was sent from her assisted living facility for evaluation unstable and left-sided droop.? Forty to EMS the patient was last seen well at 10:35 a.m. At 10 40 she was noted to be off balance and had a left facial droop.? Assisted living staff also reported that her speech sounded slurred.? An ambulance was called and the patient was transported to the emergency department.? According the paramedics the patient's blood pressure is 110/72 with a heart rate of 130.? Patient was noted to have a left facial droop.? Point of care glucose was 140. Reviewing the patient's medical record from [facility] dated 08/30/2021 the patient has had multiple episodes of left-sided facial droop with her last workup on 10/28/2020 at [facility] with negative MRI.? She was on aspirin and started on Plavix as well but I do not think that she is currently taking Plavix.? From the record, she has had episodes of left-sided weakness with left facial droop 2020, 2009, 2006, 2005, 1999.? She has had multiple negative MRIs. Review of Systems Review of Systems: Unable to obtain [facility] Medical History Anxiety Ramos's palsy Cervical cancer CHF (congestive heart failure) Cognitive impairment Congestive heart failure DVT (deep venous thrombosis) GERD (gastroesophageal reflux disease) Hospital discharge follow-up Hydronephrosis Hypercholesterolemia Hypertension Hypothyroidism Lumbar degenerative disc disease Obstructive uropathy Osteoarthritis Paroxysmal atrial fibrillation Peripheral vascular disease Pyuria Vitamin D deficiency Family History Father Hypertension Stroke CVD (cardiovascular disease) Mother Hypoglycemia Surgical History H/O elbow surgery History of bladder surgery History of cholecystectomy Social History Household Members: Family Household Members Other:: Daughter lives on second floor Housing: Unknown / Unable to assess Do you presently have visiting nurse or other home services: No Unable to assess alcohol history related to: Unknown Alcohol intake: never Patient Tobacco Use Status: Former Tobacco user Tobacco use type: Cigarette e-Cigarette/Vaping Use: Never Used Second Hand Smoke Exposure: No Use of substances other than those prescribed or required for medical reasons: No Advance Directives: Yes Advance Directives on File: Yes Advance Directives Date on File: 09/08/20 service: No Current occupational status: disabled Cognitive needs: Yes Hearing needs: Yes Vision needs: Yes Meds Allergies Allergy/AdvReac Type Severity Reaction Status Date / Time amlodipine [From NORVASC] Allergy Intermediate HIVES Verified 01/09/22 12:11 aspirin [ASA] Allergy Intermediate HIVES Verified 01/09/22 12:11 robert [ROBERT] Allergy Intermediate HIVES Verified 01/09/22 12:11 hydrochlorothiazide Allergy Unknown Hives Verified 01/09/22 12:11 gabapentin AdvReac Unknown dizziness Verified 01/09/22 12:11 lisinopril AdvReac Unknown Cough Verified 01/09/22 12:11 Active Medications: Current Medications Sodium Chloride (0.9 % Sodium Chloride Flush 3 Ml Syringe) 3 ml IVFLUSH [facility] Medications Medication Instructions Recorded Confirmed Last Taken Type acetaminophen 325 mg tablet 650 mg PO Q4H PRN pain or fever 11/18/21 01/11/22 Unknown History melatonin 3 mg tablet 6 mg PO BEDTIME 11/18/21 01/11/22 Unknown History trazodone 50 mg tablet 50 mg PO BEDTIME 11/18/21 01/11/22 Unknown History amiodarone 200 mg tablet 200 mg PO DAILY 01/11/22 01/11/22 Unknown History divalproex 125 mg capsule,delayed 125 mg PO BID 01/11/22 01/11/22 Unknown History release sprinkle (Depakote Sprinkles) nystatin 100,000 unit/gram topical 1 appl topical BID 01/11/22 01/11/22 Unknown History powder olanzapine 5 mg disintegrating 5 mg PO BEDTIME 01/11/22 01/11/22 Unknown History tablet (Zyprexa Zydis) olanzapine 5 mg disintegrating 5 mg PO DAILY 01/11/22 01/11/22 Unknown History tablet (Zyprexa Zydis) Physical Exam Vital Signs and Narrative: Vital Signs: Last Vital Signs Temp 98.4 F 01/11/22 16:40 Pulse 115 H 01/11/22 17:21 Resp 20 01/11/22 16:40 BP 100/68 01/11/22 17:21 Pulse Ox 96 01/11/22 16:40 O2 Del Method 01/11/22 16:40 BMI result Body Mass Index 19.8 Const: Other: Awake; no acute distress Resp: Other: Clear to auscultation bilaterally. No rales rhonchi or wheezes Cardio: Other: No S4; positive S1-S2; no S3 murmurs rubs or gallops GI: Other: Soft nontender nondistended with normoactive bowel sounds Extrem: Other: No edema bilaterally Results Labs CBC and Chem 7: 01/11/22 11:47 01/11/22 17:03 Labs: Laboratory Results - last 24 hr 01/11/22 01/11/22 01/11/22 11:35 11:36 11:47 MCV 85.1 MCH 27.6 MCHC 32.4 RDW 16.1 H Plt Count 254 MPV 9.0 L Immature Gran % (Auto) 0.5 H Neut % (Auto) 72.4 Lymph % (Auto) 16.5 L [place] % (Auto) 10.2 Eos % (Auto) 0.2 Baso % (Auto) 0.2 Lymph # (Auto) 0.7 L [place] # (Auto) 0.4 Eos # (Auto) 0.0 Baso # (Auto) 0.0 Abs Immat Gran (auto) 0.02 Absolute Neuts (auto) 3.0 Absolute Nucleated RBC 0.000 Nucleated RBC % (auto) 0.0 PT Whole Blood PT 15.6 H INR Whole Blood INR 1.3 H APTT Anion Gap Estim Creat Clear Calc Estimated GFR POC Glucose 92 Random Glucose Calcium Total Bilirubin Direct Bilirubin AST ALT Alkaline Phosphatase Total Creatine Kinase Total Protein Albumin COVID-19 ([place]) COVID-19 Clin Com 01/11/22 01/11/22 01/11/22 11:47 17:03 17:03 MCV MCH MCHC RDW Plt Count MPV Immature Gran % (Auto) Neut % (Auto) Lymph % (Auto) [place] % (Auto) Eos % (Auto) Baso % (Auto) Lymph # (Auto) [place] # (Auto) Eos # (Auto) Baso # (Auto) Abs Immat Gran (auto) Absolute Neuts (auto) Absolute Nucleated RBC Nucleated RBC % (auto) PT 15.5 H Whole Blood PT INR 1.3 H Whole Blood INR APTT 31.0 Anion Gap 17 Estim Creat Clear Calc 15.9 Estimated GFR 27 POC Glucose Random Glucose 85 Calcium 8.0 L Total Bilirubin 0.7 Direct Bilirubin 0.4 AST 22 ALT 12 Alkaline Phosphatase 96 Total Creatine Kinase 21 L D Total Protein 6.2 L Albumin 2.4 L D COVID-19 ([place]) Negative COVID-19 Clin Com See Note Imaging Radiologist's Impressions: Impressions Head CT 01/11/22 11:25 IMPRESSION: No acute intracranial pathology. 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 This critical result was discussed with Dr. Jose Correa at 11:40 AM hours on January 11, 2022. It was ascertained that the content and urgency of the report was understood at the time of direct communication. Chest X-Ray 01/11/22 12:14 IMPRESSION: * Lower lobes are suboptimally evaluated due to the hypoinflation. * The generalized interstitial prominence is suspicious for interstitial edema, although inflammatory thickening of airway jones could have a similar appearance. Small right pleural effusion is present. Overall, findings are similar to those seen on 11/22/2021. Assessment and Plan (1) Atrial fibrillation with rapid ventricular response: Status: Acute (2) CKD (chronic kidney disease) stage 3, GFR 30-59 ml/min: Status: Acute (3) Heart failure with reduced ejection fraction: Status: Acute (4) Dementia: Status: Acute Plan 86-year-old female presents for evaluation of a left facial droop which has been worked up extensively in the past. Patient underwent a CT scan on arrival which was centrally negative. This was discussed with length with neuro who felt she was not a candidate for tPA. In review of her chart she has had multiple similar presenting episodes for which the workup has been negative. Differential included TIAs secondary to microvascular disease complex migraine or Ramos palsy. She was back to baseline and ready for discharge when she was noted to have return of symptoms and VRR became rapis 130-140's. She was given 1 dose of IV Lopressor with good rate control achieved 1. Atrial fibrillation with rapid ventricular response rate (paroxysmal in nature) -continue amiodarone at current dosing; aspirin only for anticoagulation patient is a fall risk -pulse dose IV Lopressor for rate control intermittently -last echo April 2021; LVEF 40-45%. Would not repeat unless cardiology recommends -cardiology consult in a.m. 2.CKD -at baseline -follow renals/divalents 3.HFpEF. -no acute issues at this time 4. Dementia -continue Zyprexa trazodone as ordered as outpatient 5. Hypothyroidism -continue current dosing -check TSH in a.m. DNR/DNI Boots Patient requires at least 2 midnights going forward for monitoring of her heart rate with periodic IV beta blockade. This cannot be done in a lesser acute setting Quality Stroke Does the patient have a stroke diagnosis?: No VTE Prior VTE?: No VTE Risk Level:: Medical - moderate - high VTE Device Contraindication: N/A - Device Ordered VTE Drug Contraindication: Treatment Not Indicated
--- NOTE | 2022-01-11 18:09 | PHA.MEDREC ---
Pharmacy Consult ? Medication Reconciliation Pharmacy has completed the medication reconciliation. Patient came from [facility] with medication list. Minda Gaxiola, ArmidaD
--- NOTE | 2022-01-11 20:43 | PC.NURSE ---
Attempted to give PO medication. Pt does not close her mouth to swallow medication, pt would not swallow water or apple sauce. Pt nor very responsive, is not tracking movement or following commands
--- NOTE | 2022-01-11 21:41 | PC.NURSE ---
Pt unable to swallow PO medications. Attempted with applesauce and was unsuccessful. Pt is staring into space, not tracking in the room with her eyes, and not following commands. [place] Text sent to provider.
--- NOTE | 2022-01-11 23:10 | PC.NURSE ---
Planned to give PRN metoprolol for high, HR. Medication held due to BP 91/74.
[2022-01-11] MEDS: 0.9 % Sodium Chloride 250 ML 50 ML IV (23:27)
[2022-01-12] VITALS (10 sets, daily range): BP systolic 86–128; BP diastolic 28–83; PULSE 103–135; RESP 16–22; TEMP 35.3–36.7; O2SAT 93–100
--- NOTE | 2022-01-12 00:09 | PC.NURSE ---
Pt was Changed and cleaned due to incontinence of urine. A purewick was placed and pt tolerated it well. Pt reacted to being rolled but still cannot follow instructions or track with her eyes. Some mumbling sounds were heard but no formed words.
--- NOTE | 2022-01-12 02:36 | PC.NURSE ---
Fluid administration delayed due to pt bending her arm. New IV inserted to the left arm and fluids are being administered as ordered.
[2022-01-12 03:52] LABS: Appearance Urine Turbid; Color Urine Yellow; Glucose Urine UA Negative (Negative); Leukocyte Esterase Urine Large (3+) (Negative); Nitrite Urine Negative (Negative); PH 6.5 (5.0-9.0); UMIC TRIGGER UACC YES; Urine Blood Large (3+) (Negative); Urine Ketones Trace mg/dL (Negative); Urine Protein 300 (3+) mg/dL (Neg-Trace)
[2022-01-12 04:12] LABS: Bacteria Urine 4+ (None Seen); RBC Urine >20 /HPF (0-2); Squamous Epithelial Cell Urine 0-2 /HPF (0-2); UACC Culture Trigger YES; WBC Urine >50 /HPF (0-5)
[2022-01-12 06:44] LABS: MANUAL DIFF FLAG NO
--- NOTE | 2022-01-12 06:55 | PC.NURSE ---
hospitalist called and vitals make aware, dr jones pt and will be notified by hospitalist.
[2022-01-12 07:07] LABS: Alanine Aminotransferase 12 U/L (0-31); Albumin Level 2.2 g/dL (3.5-5.0); Alkaline Phosphatase 92 U/L (39-117); Anion Gap 19 (12-20); Aspartate Amino Transferase 21 U/L (5-31); Bilirubin Total 0.5 mg/dL (0.0-1.0); Blood Urea Nitrogen 40 mg/dL (9-16); Calcium 7.9 mg/dL (8.4-10.2); Carbon Dioxide 14 mmol/L (22-29); Chloride 109 mmol/L (96-108); Estimated Glomerular Filt Rate 26; Glucose Fasting 83 mg/dL (60-99); Potassium 5.1 mmol/L (3.3-5.1); Sodium 137 mmol/L (135-145)
[2022-01-12 07:17] LABS: Basophils Percent Auto 0.2 % (0-2); Hematocrit 37.4 % (37.0-47.0); Hemoglobin 12.1 g/dl (12.0-16.0); Imm Gran Abs Auto 0.02 X10*3/uL (0.00-0.03); Imm Gran Pct Auto 0.5 % (0.0-0.4); Lymphocytes Absolute Auto 0.9 X10*3/uL (1.2-4.9); Lymphocytes Percent Auto 22.5 % (20-40); Mean Corpuscular HGB Conc 32.4 g/dl (31.0-35.0); Mean Corpuscular Hemoglobin 27.4 pg (27.0-33.0); Mean Corpuscular Volume 84.8 fL (80.0-98.0); Monocytes Absolute Auto 0.4 X10*3/uL (0.1-1.2); Monocytes Percent Auto 10.6 % (2-11); Neutrophils Absolute Auto 2.7 x10*3/uL (2.0-8.3); Neutrophils Percent Auto 66.2 % (45-73); Red Blood Count 4.41 X10*6/uL (4.20-5.50); Red Cell Distribution Width 16.3 % (11.0-16.0)
--- NOTE | 2022-01-12 07:24 | PC.NURSE ---
Dr. Matthews hospitalist at bedside . patient arousalable to touch . 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 patient repositioned and covered with extra warm blankets r/t rectal temp of 95.9 , provider aware .
[2022-01-12] MEDS: 0.9 % Sodium Chloride 1,000 ML 999 ML IV (07:31)
[2022-01-12 07:34] LABS: Thyroid Stimulating Hormone 8.25 uIU/mL (0.32-4.0)
--- NOTE | 2022-01-12 07:40 | PC.NURSE ---
patient arousable to touch . pearrla , unfocused gaze . tachycardia heartbeat at 137 . airway has wheezes throughout upper airway . skin is dry and has some tenting noted in upper extremities . abdomen soft non descended . hypoactive bowel sounds noted in quadrants . no tenderness noted . patient made aware of plan of care .
--- NOTE | 2022-01-12 08:02 | P.PNIM_ITS ---
Subjective Subjective Date of Service: 01/13/22 Interval History: Minimally responsive overnight. Remains tachycardic despite IV Lopressor Review of Systems Unable to obtain Physical Exam 2 Vital Signs: Vital Signs: Last Vital Signs Temp 95.6 F L 01/12/22 06:48 Pulse 135 H 01/12/22 06:48 Resp 22 H 01/12/22 06:48 BP 86/28 L 01/12/22 06:48 Pulse Ox 94 01/12/22 06:48 O2 Del Method 01/12/22 06:48 BMI result Body Mass Index 19.8 Const: Other: Opens eyes to verbal stimuli Resp: Other: Clear to auscultation bilaterally. No rales rhonchi or wheezes Cardio: Other: Tachy/irregularly irregular; No S4; positive S1-S2; no S3 murmurs rubs or gallops GI: Other: Soft nontender nondistended with normoactive bowel sounds Extrem: Other: No edema bilaterally Objective Data Active Medications Acetaminophen (Acetaminophen 325 Mg Tablet) 650 mg PO Q4H PRN PRN Reason: pain or fever Amiodarone HCl (Amiodarone Hcl 200 Mg Tablet) 200 mg PO DAILY [facility] Last Admin: 01/11/22 20:43 Dose: Not Given Documented By: TAMEKA Non-Admin Reason: Patient Condition Contraindication Divalproex Sodium (Divalproex Sodium Sprinkles 125 Mg ) 125 mg PO BID [facility] Last Admin: 01/11/22 23:05 Dose: Not Given Documented By: MIMI Non-Admin Reason: Patient Condition Contraindication Sodium Chloride (Ns) 1,000 mls @ 999 mls/hr IV .Q1H1M [facility] Stop: 01/12/22 08:15 Last Admin: 01/12/22 07:31 Dose: 999 mls/hr Documented By: SARA Levothyroxine Sodium (Levothyroxine Sodium 75 Mcg Tablet) 75 mcg PO DAILY@0600 [facility] Last Admin: 01/12/22 05:43 Dose: Not Given Documented By: TAMEKA Non-Admin Reason: NPO Melatonin (Melatonin 3 Mg Tablet) 6 mg PO BEDTIME [facility] Last Admin: 01/11/22 23:06 Dose: Not Given Documented By: MIMI Non-Admin Reason: Patient Condition Contraindication Metoprolol Tartrate (Metoprolol Tartrate 5 Mg/5 Ml Vial) 5 mg IVPUSH Q6H PRN PRN Reason: HR>125 Olanzapine (Olanzapine 5 Mg Tablet) 5 mg PO BEDTIME [facility] Last Admin: 01/11/22 23:05 Dose: Not Given Documented By: MIMI Non-Admin Reason: Patient Condition Contraindication Olanzapine (Olanzapine 5 Mg Tablet) 5 mg PO DAILY ROBBIE Sodium Chloride (0.9 % Sodium Chloride Flush 3 Ml Syringe) 3 ml IVFLUSH QSHIFT [facility] Last Admin: 01/12/22 00:11 Dose: Not Given Documented By: TAMEKA Non-Admin Reason: IV Running Trazodone HCl (Trazodone Hcl 50 Mg Tablet) 50 mg PO BEDTIME [facility] Last Admin: 01/11/22 23:05 Dose: Not Given Documented By: MIMI Non-Admin Reason: Patient Condition Contraindication Labs CBC & Chem 7: 01/12/22 06:19 01/12/22 06:19 Labs: Laboratory Results - last 24 hr 01/11/22 01/11/22 01/11/22 11:35 11:36 11:47 MCV 85.1 MCH 27.6 MCHC 32.4 RDW 16.1 H Plt Count 254 MPV 9.0 L Immature Gran % (Auto) 0.5 H Neut % (Auto) 72.4 Lymph % (Auto) 16.5 L [place] % (Auto) 10.2 Eos % (Auto) 0.2 Baso % (Auto) 0.2 Lymph # (Auto) 0.7 L [place] # (Auto) 0.4 Eos # (Auto) 0.0 Baso # (Auto) 0.0 Abs Immat Gran (auto) 0.02 Absolute Neuts (auto) 3.0 Absolute Nucleated RBC 0.000 Nucleated RBC % (auto) 0.0 PT Whole Blood PT 15.6 H INR Whole Blood INR 1.3 H APTT Anion Gap Estim Creat Clear Calc Estimated GFR POC Glucose 92 Random Glucose Fasting Glucose Calcium Total Bilirubin Direct Bilirubin AST ALT Alkaline Phosphatase Total Creatine Kinase Total Protein Albumin TSH Urine Color Urine Appearance Urine pH Ur Specific [place] Urine Protein Urine Glucose (UA) Urine Ketones Urine Blood Urine Nitrite Ur Leukocyte Esterase Urine RBC Urine WBC Ur Squamous Epith Cells Urine Bacteria Hyaline Casts Urine Yeast COVID-19 ([place]) COVID-19 Clin Com 01/11/22 01/11/2201/11/22 11:47 17:03 17:03 MCV MCH MCHC RDW Plt Count MPV Immature Gran % (Auto) Neut % (Auto) Lymph % (Auto) [place] % (Auto) Eos % (Auto) Baso % (Auto) Lymph # (Auto) [place] # (Auto) Eos # (Auto) Baso # (Auto) Abs Immat Gran (auto) Absolute Neuts (auto) Absolute Nucleated RBC Nucleated RBC % (auto) PT 15.5 H Whole Blood PT INR 1.3 H Whole Blood INR APTT 31.0 Anion Gap 17 Estim Creat Clear Calc 15.9 Estimated GFR 27 POC Glucose Random Glucose 85 Fasting Glucose Calcium 8.0 L Total Bilirubin 0.7 Direct Bilirubin 0.4 AST 22 ALT 12 Alkaline Phosphatase 96 Total Creatine Kinase 21 L D Total Protein 6.2 L Albumin 2.4 L D TSH Urine Color Urine Appearance Urine pH Ur Specific [place] Urine Protein Urine Glucose (UA) Urine Ketones Urine Blood Urine Nitrite Ur Leukocyte Esterase Urine RBC Urine WBC Ur Squamous Epith Cells Urine Bacteria Hyaline Casts Urine Yeast COVID-19 ([place]) Negative COVID-19 Clin Com See Note 01/12/22 01/12/22 01/12/22 03:45 06:19 06:19 MCV 84.8 MCH 27.4 MCHC 32.4 RDW 16.3 H Plt Count MPV Immature Gran % (Auto) 0.5 H Neut % (Auto) 66.2 Lymph % (Auto) 22.5 [place] % (Auto) 10.6 Eos % (Auto) 0.0 Baso % (Auto) 0.2 Lymph # (Auto) 0.9 L [place] # (Auto) 0.4 Eos # (Auto) 0.0 Baso # (Auto) 0.0 Abs Immat Gran (auto) 0.02 Absolute Neuts (auto) 2.7 Absolute Nucleated RBC 0.000 Nucleated RBC % (auto) 0.0 PT Whole Blood PT INR Whole Blood INR APTT Anion Gap 19 Estim Creat Clear Calc 15.0 Estimated GFR 26 POC Glucose Random Glucose Fasting Glucose 83 Calcium 7.9 L Total Bilirubin 0.5 Direct Bilirubin AST 21 ALT 12 Alkaline Phosphatase 92 Total Creatine Kinase Total Protein 6.0 L Albumin 2.2 L TSH Urine Color Yellow Urine Appearance Turbid Urine pH 6.5 Ur Specific [place] 1.020 Urine Protein 300 (3+) H Urine Glucose (UA) Negative Urine Ketones Trace Urine Blood Large (3+) H Urine Nitrite Negative Ur Leukocyte Esterase Large (3+) H Urine RBC >20 H Urine WBC >50 H Ur Squamous Epith Cells 0-2 Urine Bacteria 4+ Hyaline Casts 6-10 Urine Yeast Present COVID-19 ([place]) COVID-19 Clin Com 01/12/22 06:19 MCV MCH MCHC RDW Plt Count MPV Immature Gran % (Auto) Neut % (Auto) Lymph % (Auto) [place] % (Auto) Eos % (Auto) Baso % (Auto) Lymph # (Auto) [place] # (Auto) Eos # (Auto) Baso # (Auto) Abs Immat Gran (auto) Absolute Neuts (auto) Absolute Nucleated RBC Nucleated RBC % (auto) PT Whole Blood PT INR Whole Blood INR APTT Anion Gap Estim Creat Clear Calc Estimated GFR POC Glucose Random Glucose Fasting Glucose Calcium Total Bilirubin Direct Bilirubin AST ALT Alkaline Phosphatase Total Creatine Kinase Total Protein Albumin TSH 8.25 H Urine Color Urine Appearance Urine pH Ur Specific [place] Urine Protein Urine Glucose (UA) Urine Ketones Urine Blood Urine Nitrite Ur Leukocyte Esterase Urine RBC Urine WBC Ur Squamous Epith Cells Urine Bacteria Hyaline Casts Urine Yeast COVID-19 ([place]) COVID-19 Clin Com Assessment and Plan (1) Atrial fibrillation with rapid ventricular response: Status: Acute (2) CKD (chronic kidney disease) stage 3, GFR 30-59 ml/min: Status: Acute (3) CHF (congestive heart failure): Status: Acute (4) Dementia: Status: Acute Plan 86-year-old female presents for evaluation of a left facial droop which has been worked up extensively in the past. Patient underwent a CT scan on arrival which was centrally negative. This was discussed with length with neuro who felt she was not a candidate for tPA. In review of her chart she has had multiple similar presenting episodes for which the workup has been negative. Differential included TIAs secondary to microvascular disease complex migraine or Ramos palsy. She was back to baseline and ready for discharge when she was noted to have return of symptoms and VRR became rapis 130-140's. She was given 1 dose of IV Lopressor with good rate control achieved 1. Atrial fibrillation with rapid ventricular response rate (paroxysmal in nature)... Persistent overnight -continue amiodarone ; dig load IV -pulse dose IV Lopressor for rate control intermittently -last echo April 2021; LVEF 40-45%. Would not repeat unless cardiology recommends -cardiology consult in a.m. 2.CKD -at baseline -follow renals/divalents 3.HFpEF. -no acute issues at this time 4. Dementia -continue Zyprexa trazodone as ordered as outpatient 5. Hypothyroidism -adjust levothyroxine dose -follow-up clinically DNR/DNI Boots Requires ongoing hospitalization for IV day age load and periodic IV Lopressor to controlled rapid response rate Quality Stroke Does the patient have a stroke diagnosis?: No VTE Prior VTE?: No VTE Risk Level:: Medical - moderate - high VTE Device Contraindication: N/A - Device Ordered VTE Drug Contraindication: Treatment Not Indicated
[2022-01-12] MEDS: 0.9 % Sodium Chloride Flush 3 ML SYRINGE IVFLUSH ×2 (08:40→15:49)
[2022-01-12] MEDS: Digoxin 0.5 MG/2 ML AMPUL 0.125 MG IVPUSH (08:40)
--- NOTE | 2022-01-12 08:40 | PC.NURSE ---
Administered dioxin as ordered by provider by Dr. Matthews for Affib /RVR . Family at bedside . family and patient aware of plan of plan of care .
--- NOTE | 2022-01-12 13:16 | PC.NURSE ---
patient appears comfortable , no moaning or grimacing noted when repositioning .
--- NOTE | 2022-01-12 13:17 | PC.NURSE ---
patient appears comfortable . no grimacing or moaning with repositioning . family remains at bedside .
--- NOTE | 2022-01-12 13:18 | PC.NURSE ---
patient appears comfortable . no grimacing with repositioning or moaning . family remains at bedside .
[2022-01-12] MEDS: Metoprolol Tartrate 5 MG/5 ML VIAL IVPUSH (13:22)
--- NOTE | 2022-01-12 13:22 | PC.NURSE ---
Patient given PRN 5mg IVP metoprolol tartrate for heart rate of 110 -130 of AFFIB . blood pressure 120/65 and a MAP of 83. Provider Dr Skye Mattehws aware . Family at bedside and patient aware of plan of care .
--- NOTE | 2022-01-12 14:43 | PC.NURSE ---
this rn was in pt's r0om pt was rubbing her eyes and she removed her eye glasses. this rn placed pt eye glasses on the side table.
--- NOTE | 2022-01-12 15:49 | PC.NURSE ---
patient repositioned . no signs and symptoms of discomfort noted . heart rate varying between 102-110 on monitor . patient aware of plan of care .
--- NOTE | 2022-01-12 22:25 | PC.NURSE ---
PO medications held due to NPO status and pt not responding enough to swallow PO.
--- NOTE | 2022-01-12 23:30 | PC.NURSE ---
Pt was incontinent of urine and stool, full bed change, new purewick placed, repositioned @2130
[2022-01-13] MEDS: 0.9 % Sodium Chloride Flush 3 ML SYRINGE IVFLUSH (00:21)
[2022-01-13 02:18] VITALS: BP 89/54; PULSE 124; RESP 15; O2SAT 97
[2022-01-13 07:22] VITALS: BP 107/54; PULSE 114; RESP 17; O2SAT 95
[2022-01-13 11:14] VITALS: BP 93/54; PULSE 113; RESP 19; O2SAT 99
--- NOTE | 2022-01-13 11:15 | PC.NURSE ---
revitaled patient for 11am, family at bedside. pt resting comfortably, call eng within reach.
[2022-01-13 11:39] VITALS: BP 91/48; PULSE 117; RESP 20; O2SAT 98
--- NOTE | 2022-01-13 11:41 | PC.NURSE ---
PT RESTING COMFORTABLY AT THIS TIME, FAMILY REMAINS AT THE BEDSIDE.
--- NOTE | 2022-01-13 12:02 | MHC.CM.PN ---
Received notifictation patient will be discharged and return to [facility] from Dr Matthews. [facility] aware. Ciro VALERA booked for 1pm. Spoke with patient's daughter/HCP, Alina via telephone at [phone]. Patient is a LTC resident of [facility]. Patient has received 3 Moderna vaccines. HCP verirfied to be on file. IMM explained and sent via certified mail. Continue to monitor for d/c needs.
--- NOTE | 2022-01-13 14:18 | PM.DS ---
DS: Providers Provider Date of Service: 01/13/22 Date of admission: 01/11/22 17:47 Date of discharge: 01/13/22 Primary care physician: CARLOS DANIELS DS: Diagnosis Discharge Diagnosis (1) Atrial fibrillation with rapid ventricular response: Status: Acute (2) CKD (chronic kidney disease) stage 3, GFR 30-59 ml/min: Status: Acute (3) CHF (congestive heart failure): Status: Acute (4) Dementia: Status: Acute DS: Summary Hospital Course Hospital Course: 86-year-old female who was sent from her assisted living facility for evaluation unstable and left-sided droop.? Forty to EMS the patient was last seen well at 10:35 a.m. At 10 40 she was noted to be off balance and had a left facial droop.? Assisted living staff also reported that her speech sounded slurred.? An ambulance was called and the patient was transported to the emergency department.? According the paramedics the patient's blood pressure is 110/72 with a heart rate of 130.? Patient was noted to have a left facial droop.? Point of care glucose was 140. Symptoms resolved. Developed rapid ventricular response (AFib) multiple doses of Lopressor or attempted along with did however did not slow the rate. Patient minimally responsive throughout. Discussion with family and in light of poor prognosis family wishes to make patient comfort care. She will be transferred back to [facility] for comfort care UA Time Spent with Patient Time attestation: Total time spent providing and/or coordinating discharge services: Discharge coordination time: Greater than 30 minutes Quality: Safe Use of Opioids Does Pt have an Active Cancer Diagnosis on the Problem List?: No Quality: Stroke Does the patient have a stroke diagnosis?: No Physical Exam Vital Signs: Vital Signs: Last Vital Signs Temp 97.6 F 01/12/22 15:46 Pulse 117 H 01/13/22 11:39 Resp 20 01/13/22 11:39 BP 91/48 L 01/13/22 11:39 Pulse Ox 98 01/13/22 11:39 O2 Del Method 01/13/22 11:39 BMI result Body Mass Index 19.8 Const: Other: Opens eyes to verbal stimuli Resp: Other: Clear to auscultation bilaterally. No rales rhonchi or wheezes Cardio: Other: Tachy/irregularly irregular; No S4; positive S1-S2; no S3 murmurs rubs or gallops GI: Other: Soft nontender nondistended with normoactive bowel sounds Extrem: Other: No edema bilaterally DS: Data Data Completed and Pending Completed studies during hospitalization [Text1]: Procedures Dilation of Left Ureter with Intraluminal Device, Via Natural or Artificial Opening Endoscopic (05/19/20) Dilation of Right Ureter with Intraluminal Device, Via Natural or Artificial Opening Endoscopic (05/19/20) Removal of Intraluminal Device from Ureter, Via Natural or Artificial Opening Endoscopic (05/19/20) Sabianist of Cardiac Rhythm, Single (01/26/20) Transfusion of Nonautologous Red Blood Cells into Peripheral Vein, Percutaneous Approach (08/23/20) Discharge Plan Discharge Patient Disposition: er [facility] Discharge Diagnosis: Atrial fibrillation with rapid ventricular response Referrals: Ermelinda Little [Outside] - 1 Week CARLOS DANIELS [Primary Care Provider] - 1 Week Discharge Medications: Discontinued (DME) wheelchair See Rx Instructions .Route .MEDSUPPLY Qty: 1 0RF Rx Instructions: As directed (DME) pull ups medium See Rx Instructions .Route .MEDSUPPLY Qty: 180 11RF Rx Instructions: As directed levothyroxine 75 mcg tablet 75 mcg PO DAILY@0600 90 Days Qty: 90 2RF nystatin 100,000 unit/gram Powder 1 appl TOPICAL BID divalproex [Depakote Sprinkles] 125 mg Capsule, Delayed Rel Sprinkle 125 mg PO BID olanzapine [Zyprexa Zydis] 5 mg Tablet,Disintegrating 5 mg PO BEDTIME amiodarone 200 mg Tablet 200 mg PO DAILY olanzapine [Zyprexa Zydis] 5 mg Tablet,Disintegrating 5 mg PO DAILY acetaminophen 325 mg Tablet 650 mg PO Q4H PRN (Reason: pain or fever) trazodone 50 mg Tablet 50 mg PO BEDTIME melatonin 3 mg Tablet 6 mg PO BEDTIME Discharge Orders: Discharge Order (Routine); Ordered 01/13/22 Ordered By: Prashant Matthews Diet: Advance to usual diet Activity on Discharge: As tolerated Stand Alone Forms: Patient Portal Discharge page Care Plan Goals: Moved to comfort care Health Concerns: Moved to comfort care Plan of Treatment: As per facility Assessment: See discharge summary
[2022-01-13 15:00] VITALS: BP 109/59; PULSE 123; RESP 20; O2SAT 98
== END 2022-01-13 16:51 | DRG 309 ==
LOC: HO.ED 16:55 → HO.EDOVER 17:54
PROVIDERS: Admitting Provider Hospitalist; Emergency Provider Emergency Medicine Emergency Medical Services; PCP Emergency Medicine; Visit Provider Hospitalist
DX: I48.0 Paroxysmal atrial fibrillation (principal); I13.0 Hypertensive heart and chronic kidney disease with heart failure and stage 1 through stage 4 chronic kidney disease, or unspecified chronic kidney disease; I50.32 Chronic diastolic (congestive) heart failure; F41.9 Anxiety disorder, unspecified; F03.90 Unspecified dementia, unspecified severity, without behavioral disturbance, psychotic disturbance, mood disturbance, and anxiety; Z51.5 Encounter for palliative care; Z66 Do not resuscitate; M18.9 Osteoarthritis of first carpometacarpal joint, unspecified; N18.9 Chronic kidney disease, unspecified; E03.9 Hypothyroidism, unspecified; Z87.891 Personal history of nicotine dependence; Z88.6 Allergy status to analgesic agent; Z88.8 Allergy status to other drugs, medicaments and biological substances
CPT/HCPCS: 36415; 70450; 71045; 80048; 80053; 80076; 81001; 82550; 82947; 84443; 84484; 85025; 85610; 85730; 87086; 87635; 93005; 99212; 99285; J1160